=== PATIENT | female | born 1995 | race Caucasian/White ===

== ENCOUNTER 2019-03-06 12:35 | Emergency (ER) | payer OTHER, SELFPAY ==
--- NOTE | 2019-03-06 12:39 | ED.GENADULT ---
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 She had the last 1 and 1 week ago and then started having menstrual bleeding yesterday. She did not have to use any tampons on that day 03/05/2021 the fact that it was light at that time and she just use liners 1-2 that day. She awakened this morning with needing to use 5-6 tampons in 4-5 liners today. She does not have any abdominal pain or fever. There is been no vaginal discharge with any of this through the past month. She used to use Implanon as a form of contraception but that was removed in July 2018. She is occasionally sexually active and does not use contraception including no condoms. She felt nauseated this morning x1 and vomited x1. No longer feels nauseated. She has not had any hematuria, no dysuria, no pyuria. She indicates her last sexual intercourse was 2 days ago. She has otherwise felt well without any ear pain, no nasal drainage, no sore throat, no fever, no cough. 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 She has had no diarrhea. 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 He did have blood clots passed this morning when she awakened. He does not take any ibuprofen, Aleve, or aspirin products. She started her menarche between 15 to 16 years of age. He has never been . Related Data Home Medications Medication Instructions Recorded Confirmed No Home Medications 03/06/19 03/06/19 Allergies Allergy/AdvReac Type Severity Reaction Status Date / Time metoclopramide AdvReac Unknown Anxiety Verified 03/06/19 12:53 prochlorperazine AdvReac Unknown Anxiety Verified 03/06/19 12:53 Review of Systems Review of Systems: Narrative: CONSTITUTIONAL: Denies fever, chills, or sweats. Noncontributory except as pertains to the past medical history and the history of present illness. EYES: Denies visual changes, redness, or discharge. ENT: Denies rhinorrhea, congestion, sore throat, or otalgia. CARDIOVASCULAR: Denies chest pain, palpitations, or edema. RESPIRATORY: Denies cough or dyspnea. GASTROINTESTINAL: Denies abdominal pain, nausea, vomiting, or diarrhea. GENITOURINARY: Denies dysuria or hematuria. SKIN: Denies rash or itching. MUSCULOSKELETAL: Denies back pain, joint pain, or myalgia. NEUROLOGIC: Denies headache, numbness, or weakness. PSYCHIATRIC: Denies anxiety or depression. PMFSH Social History Social History Gender identity (if verbalized by the patient): Female Comments At time of signature, I have reviewed and agree with nursing past medical, surgical, social, and family history.Please see nursing chart for further information. There is no relevant family history pertinent to the presenting complaint. Exam Narrative: Exam Narrative: GENERAL: Well-appearing, well-nourished, and in no acute distress. HEAD: Normocephalic, atraumatic. EYES: PERRLA and EOMI. EARS: TM's clear bilaterally and the canals are clear. NOSE: Nares clear, no rhinorrhea or epistaxis. THROAT:Mucous membranes moist.Oropharynx normal without erythema exudates NECK: Supple. No adenopathy of the neck, supraclavicular, axillary, or inguinal areas. RESPIRATORY: No respiratory distress. Airway patent. Respirations non-labored. Clear to auscultation. There are no wheezes, no rales, no retractions, no use of accessory muscle respirations. Patient's not cyanotic and not dyspneic. HEART: Regular rate and rhythm. No murmur heard. Normal peripheral pulses. ABDOMEN: Soft, nontender, nondistended, normal active bowel sounds.No ma
[2019-03-06 12:47] VITALS: BP 117/71; PULSE 61; RESP 18; TEMP 36.7; O2SAT 100
== END 2019-03-06 13:34 | disposition home or self-care (01) ==
PROVIDERS: Emergency Provider Family Medicine
DX: N92.4 Excessive bleeding in the premenopausal period (principal)
CPT/HCPCS: 81025; 99214; G0463

== ENCOUNTER 2019-03-07 13:56 | Emergency (ER) | payer OTHER, SELFPAY ==
--- NOTE | ~2019-03-07 | XR_ITS ---
EXAMINATION: XR wrist LT min 3V DATE: 03/07/2019 14:38 INDICATION: Left wrist pain after fall TECHNIQUE: Posteroanterior, ulnar deviation, oblique, and lateral views of the left wrist were obtain ed. COMPARISON: None available FINDINGS: There is no fracture, dislocation, or subluxation. The bones, soft tissues, and joint space s are normal. IMPRESSION: 1. No acute osseous abnormality. Reviewed, dictated and finalized at location A. TRANSITION MGR
[2019-03-07 14:11] VITALS: BP 109/59; PULSE 66; RESP 16; TEMP 37.6; O2SAT 100
--- NOTE | 2019-03-07 14:20 | ED.UPPEXIN ---
HPI - Extremity Injury (Upper) General Chief Complaint: Extremity Injury, Upper Stated Complaint: Left wrist pain Time Seen by Provider: 03/07/19 14:21 Source: patient and RN notes reviewed Mode of arrival: ambulatory Limitations: no limitations History of Present Illness HPI narrative: This is a 23 years old female presented office for evaluation of left wrist pain this morning. Stated she accidentally slip and fall down onto the ground landed on her right side last night in the bathroom and somehow hurt her left wrist. She complain of pain everywhere however her left wrist is hurting the worse. States, she could not move it well or even use it to grasp a cup. She does not recall direct trauma or injury onto her wrist. Denies head injury or loss of consciousness.She is right-hand dominant. No treatment prior to arrival. Related Data Home Medications Medication Instructions Recorded Confirmed No Home Medications 03/06/19 03/06/19 Allergies Allergy/AdvReac Type Severity Reaction Status Date / Time metoclopramide AdvReac Unknown Anxiety Verified 03/06/19 12:53 prochlorperazine AdvReac Unknown Anxiety Verified 03/06/19 12:53 Review of Systems Review of Systems: Narrative: CONSTITUTIONAL: Denies feeling ill. CARDIOVASCULAR: Denies chest pain RESPIRATORY: Denies cough or difficulty breathing GASTROINTESTINAL: Denies abdominal pain, nausea, vomiting GENITOURINARY: Denies urinary symptoms; reports heaving bleeding. SKIN: Denies rash MUSCULOSKELETAL: Reports sore all over her body; and worse on her left wrist. NEUROLOGIC: Denies numbness, or lightheaded. PMFSH Social History Social History Gender identity (if verbalized by the patient): Female Comments At time of signature, I agree with nursing past medical, surgical, social and family history. There is no relevant family history pertinent to the presenting complaint. Exam Narrative: Exam Narrative: GENERAL: This is a well-nourished, well-developed patient, in no apparent distress. HEAD: Atraumatic. Normocephalic. No temporal or scalp tenderness. EYES: Sclera and conjunctivae normal ENT: External ears normal. Nose and lips normal. Airway patent. CARDIOVASCULAR: Regular rate and rhythm without murmurs, gallops, or rubs. RESPIRATORY: Clear to auscultation. Breath sounds equal bilaterally. No wheezes, rales, or rhonchi. GASTROINTESTINAL: Abdomen soft, non-tender, nondistended. Bowel sounds are active. No hepato-splenomegaly, or palpable masses. No guarding. SKIN: warm, intact with no suspicious lesions or rash, good texture and turgor. NEURO: awake, alert, and oriented to person, place and time. There were no obvious focal neurologic abnormalities. EXTREMITIES: the left wrist is with obvious asymmetry or deformity when compared to the R wrist. NO surface trauma, open wounds, swelling or obvious deformity. No overlying erythema or warmth. Limited ROM secondary to pain. Motor/sensory function of ulnar, radial, median nerves intact. Ulnar and radial pulses intact. Course Vital Signs Vital signs: Vital Signs Temperature 99.7 F H 03/07/19 14:11 Pulse Rate 66 03/07/19 14:11 Respiratory Rate 16 03/07/19 14:11 Blood Pressure 109/59 L 03/07/19 14:11 Pulse Oximetry 100 03/07/19 14:11 Temperature 99.7 F H 03/07/19 14:11 Pulse Rate 66 03/07/19 14:11 Respiratory Rate 16 03/07/19 14:11 Blood Pressure 109/59 L 03/07/19 14:11 Pulse Oximetry 100 03/07/19 14:11 MDM - Extremity Injury (Upper) MDM Narrative Medical decision making narrative: Discharge instructions reviewed with patient, as well as provided in writing per nursing staff. The instructions also include specific and strict return/GO TO THE ER as well as f/u information. All questions have been answered, and the patient deny any further questions with discharge and discharge plan. Differential Diagnosis Differential diagnosis:
== END 2019-03-07 15:09 | disposition home or self-care (01) ==
PROVIDERS: Emergency Provider Nurse Practitioner
DX: S63.502A Unspecified sprain of left wrist, initial encounter (principal); S66.912A Strain of unspecified muscle, fascia and tendon at wrist and hand level, left hand, initial encounter; W01.0XXA Fall on same level from slipping, tripping and stumbling without subsequent striking against object, initial encounter
CPT/HCPCS: 73110; 99213; G0463

== ENCOUNTER 2019-06-04 08:40 | Emergency (ER) | payer OTHER, SELFPAY ==
[2019-06-04 08:56] VITALS: BP 145/96; PULSE 87; RESP 16; TEMP 37.1; O2SAT 100
--- NOTE | 2019-06-04 08:59 | ED.GENADULT ---
HPI - General Adult General Chief complaint: Nausea/Vomiting/Diarrhea Stated complaint: abd pain/nausea/vomiting/diarrhea Time Seen by Provider: 06/04/19 09:01 Source: patient and RN notes reviewed Mode of arrival: ambulatory Limitations: no limitations History of Present Illness HPI narrative: 24-year-old female presents with complaints of nausea, vomiting, and decrease appetite for 1 day. Nausea and vomiting without abdominal pain. Aisha says on Sunday06/02/2019 she had [employer], [employer], and beer while smoking marijuana with some friends then awaken yesterday with nausea and vomiting. No treatment. No abdominal pain or cramping. She says she has had at least 15 episodes of emesis without blood or coffee ground contents. Exacerbating factors consist of eating and drinking. LBM Aisha says I couldn't tell you. Denies fever or chills. Denies headache, dizziness, back pain, dysuria, and blood in stool. Tolerating po intake well. Denies chest pain or dyspnea. Denies cough, rhinorrhea, congestion, and sore throat. Denies recent traveling. Denies concerns for COVID-19 or exposures been home since [id number] order except for essential household needs, working, and returned home. Some parts of this dictation were generated by voice recognition software and may contain typographical and/or grammatical inaccuracies. Related Data Allergies Allergy/AdvReac Type Severity Reaction Status Date / Time metoclopramide AdvReac Unknown Anxiety Verified 03/06/19 12:53 prochlorperazine AdvReac Unknown Anxiety Verified 03/06/19 12:53 Review of Systems Review of Systems: Narrative: CONSTITUTIONAL: Denies fever, chills, sweats. EYES: Denies visual changes, redness, discharge. ENT: Denies rhinorrhea, congestion, sore throat, otalgia. CARDIOVASCULAR: Denies chest pain, palpitations, edema. RESPIRATORY: Denies dyspnea, wheezing, cough. GASTROINTESTINAL: Denies abdominal pain, diarrhea. Complains of vomiting, nausea, and decrease appetite. GENITOURINARY: Denies dysuria, hematuria, abnormal discharge. SKIN: Denies rash or itching. MUSCULOSKELETAL: Denies acute back pain, joint pain, or myalgia. NEUROLOGIC: Denies numbness or focal weakness. PSYCHIATRIC: Denies anxiety or depression. All systems reviewed & are unremarkable except as noted in HPI and below. [facility] Past Medical History Medical History (Updated 06/04/19 @ 09:25 by JOSY Blul) Asthma Surgical History Surgical History (Updated 06/04/19 @ 10:09 by JOSY Bull) History of tympanostomy Family History Family History (Updated 06/04/19 @ 09:22 by JOSY Bull) Father Alive and well Mother Alive and well Social History Social History (Updated 06/04/19 @ 09:23 by JOSY Bull) Smoking packs per day: 0.5 Smoking cigarettes per day: 10.0 Years smoked: 10 Smoking pack-years: 5.00 Smoking status: Current every day smoker Tobacco type: cigarettes Second hand tobacco smoke exposure: Yes Alcohol intake: current Substance use: current Substance use type: marijuana Living arrangements: alone Gender identity (if verbalized by the patient): Female Comments At time of signature, I have reviewed and agree with nursing past medical, surgical, social, and family history. Please see nursing chart for further information. There is no relevant family history pertinent to the presenting complaint. Exam Narrative: Exam Narrative: GENERAL: This is a well-nourished, well-developed patient, in no apparent distress. Talks in full sentences without deficits and ambulates with steady gait without dyspnea. HEAD: normocephalic, atraumatic. EYES: PERRL. Sclera clear/white. Vision is grossly intact. THROAT: Mucous membranes moist, posterior pharynx clear. NECK: Neck supple, non-tender without lymphadenopathy, masses or thyromegaly. CARDIOVASCULAR: Regular rate and rhythm without murmurs, gallops, or rubs. RESPI
[2019-06-04] MEDS: ONDANSETRON INJ 4 MG/2 ML VIAL IM (09:23)
--- NOTE | 2019-06-04 09:35 | PC.NURSE ---
Malorie Mist and emesis bag given to pt.
--- NOTE | 2019-06-04 10:05 | PC.NURSE ---
0958- Pt has finished her first Malorie Mist, second one given. Minimal amount of emesis noted. Pt reported to [facility] that she was still not feeling well. 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
== END 2019-06-04 10:04 | disposition short-term general hospital (02) ==
PROVIDERS: Emergency Provider Nurse Practitioner Family
DX: K52.9 Noninfective gastroenteritis and colitis, unspecified (principal); F17.210 Nicotine dependence, cigarettes, uncomplicated; F12.90 Cannabis use, unspecified, uncomplicated
CPT/HCPCS: 96372; 99215; G0463; J2405

== ENCOUNTER 2019-06-04 10:24 | Emergency (ER) | payer OTHER, SELFPAY ==
--- NOTE | 2019-06-04 10:29 | ED.ABDPAIN ---
HPI - Abdominal Pain General Chief Complaint: Abdominal Pain Stated Complaint: N/V/ABD PAIN Source: RN notes reviewed History of Present Illness HPI narrative: Patient presents emergency department from urgent care for nausea vomiting. Patient states she is been having nausea and vomiting for the past 24 hours. Associate with abdominal pain in the upper abdomen described as burning in nature. Patient states that 2 days ago she had been drinking alcohol as well as smoking marijuana. States that the nausea vomiting began following this. Patient went to the urgent care this morning was given Zofran with minimal relief and transferred to the emergency department for further evaluation. Patient states she does have a history of cannabinoid hyperemesis syndrome that she states she has not had a problem with for the past year since she stopped using cannabinoid oil. Patient states she was smoking marijuana 2 nights ago. Related Data Allergies Allergy/AdvReac Type Severity Reaction Status Date / Time metoclopramide AdvReac Unknown Anxiety Verified 06/04/19 10:40 prochlorperazine AdvReac Unknown Anxiety Verified 06/04/19 10:40 Review of Systems Review of Systems: Narrative: Gen.: Denies fevers or chills ENT: Denies congestion Respiratory: Denies shortness of breath or cough CV: Denies chest pain or palpitations GI: See HPI denies burning, urgency, frequency or hematuria Musculoskeletal: Denies back pain or muscle pain Neuro: Denies numbness, tingling, weakness or focal weakness Skin: Denies rash Except as documented, all other systems reviewed and negative [facility] Past Medical History Medical History Asthma Surgical History Surgical History (Updated 06/04/19 @ 10:09 by JOSY Bull) History of tympanostomy Family History Family History (Updated 06/04/19 @ 09:22 by JOSY Bull) Father Alive and well Mother Alive and well Social History Social History Smoking packs per day: 0.5 Smoking cigarettes per day: 10.0 Years smoked: 10 Smoking pack-years: 5.00 Smoking status: Current every day smoker Tobacco type: cigarettes Second hand tobacco smoke exposure: Yes Alcohol intake: current Substance use: current Substance use type: marijuana Gender identity (if verbalized by the patient): Female Exam Narrative: Exam Narrative: APPEARANCE: No acute distress, nontoxic, resting in bed HEENT: Normocephalic, atraumatic, OMM RESPIRATORY: No respiratory distress, clear to auscultation bilaterally with no rhonchi wheezing or rales CARDIOVASCULAR: RRR s murmur ABDOMINAL: Soft, nondistended, tender palpation epigastric, right upper quadrant left upper quadrant, no tenderness right lower quadrant left lower quadrant, no rebound or guarding MUSCULOSKELETAl: Moves all extremities. No clubbing, cyanosis or edema. NEURO: Awake and alert. Following commands, speech normal, no focal deficits SKIN:: Warm, dry. Normal Color PSYCHIATRIC: Normal affect/mood Course Course Emergency Course: Patient states that they are feeling much better at this time. States abdominal pain has resolved. Repeat abdominal exam shows the patient's abdomen to be soft and nontender. Discussed with patient results of workup and diagnosis. Discussed need for follow-up with primary care physician, reasons to return to the emergency department in proper use of medication. Patient understands and agrees to current treatment plan Vital Signs Vital signs: Vital Signs Pulse Rate 105 H 06/04/19 10:33 Respiratory Rate 06/04/19 10:33 Blood Pressure 124/95 H 06/04/19 10:33 Pulse Oximetry 96 06/04/19 10:33 Pulse Rate 105 H 06/04/19 10:33 Respiratory Rate 06/04/19 10:33 Blood Pressure 124/95 H 06/04/19 10:33 Pulse Oximetry 96 06/04/19 10:33 MDM - Abdominal Pain MDM Narrative Medical d
[2019-06-04 10:33] VITALS: BP 124/95; PULSE 105; RESP 20; O2SAT 96
[2019-06-04] MEDS: SODIUM CHLORIDE 0.9% IV 1,000 ML 999 ML IV CONT (10:45)
[2019-06-04] MEDS: FAMOTIDINE 20 MG/2 ML VIAL IV PUSH (10:45)
[2019-06-04 10:51] LABS: Basophils Percent Auto 0.2 % (0.2-1.2); Hematocrit 45.7 % (37.0-47.0); Hemoglobin 14.9 g/dL (12.0-15.0); Immature Granulocyte Absolute 0.06 K/mm3 (0.00-0.031); Immature Granulocyte Percent A 0.3 % (0-0.5); Mean Corpuscular HGB Conc 32.6 g/dl (32-36); Mean Corpuscular Hemoglobin 29.6 pg (26-34); Mean Corpuscular Volume 90.9 fl (80-100); Mean Platelet Volume 11.9 fl (7.4-10.4); Monocytes Absolute Auto 1.3 K/mm3 (0.1-0.6); Monocytes Percent Auto 7.2 % (2.6-8.5); Neutrophils Absolute Auto 14.8 K/mm3 (1.3-6.7); Neutrophils Percent Auto 82.3 % (45.5-73.1); Platelet Count Result 318 k/mm3 (150-375); Red Blood Count 5.03 M/mm3 (4.2-5.4); Red Cell Distribution Width 14.5 % (11.5-14.5)
[2019-06-04 10:55] LABS: Add Urine Microscopic? YES; Appearance Urine Clear (Clear); Bacteria Urine Trace /hpf; Bilirubin Urine Negative (Negative); Blood Urine 1+ (Negative); Color Urine Yellow (Yellow); Glucose Urine UA Negative (Negative); Ketones Urine Negative (Negative); Leukocyte Esterase Ur Negative LEU/UL (Negative); Mucus Urine Rare /lpf; Nitrate Urine Negative (Negative); Protein Urine 1+ mg/dL (Negative); Specific Grav Ur 1.013 (1.001-1.035); Squamous Epithelial Cell Urine Many /hpf (Few); Urobilinogen Urine Negative mg/dL (<2.0)
[2019-06-04 11:02] LABS: Alanine Aminotransferase 15 U/L (4-35); Albumin Level 5.2 g/dL (3.5-5.1); Alkaline Phosphatase 90 U/L (38-126); Aspartate Amino Transferase 23 U/L (14-36); Bilirubin,Total 0.6 mg/dL (0.2-1.3); Blood Urea Nitrogen 10 mg/dL (7-17); Calcium 9.6 mg/dL (8.4-10.2); Carbon Dioxide 29 mmol/L (22-30); Chloride 99 mmol/L (98-107); Estimated CRCL calculation 116 ml/min; Estimated Glomerular Filt Rate > 60; Glucose 123 mg/dL (65-105); Lipase 101 U/L (23-300); Potassium 3.3 mmol/L (3.4-5.0); Sodium 139 mmol/L (137-145)
[2019-06-04 13:14] VITALS: BP 111/72; PULSE 69; RESP 16; O2SAT 99
[2019-06-04] MEDS: ONDANSETRON HCL ODT 4 MG TABLET (13:30)
== END 2019-06-04 13:37 | disposition home or self-care (01) ==
PROVIDERS: Emergency Provider Emergency Medicine
DX: R11.2 Nausea with vomiting, unspecified (principal); R10.10 Upper abdominal pain, unspecified; J45.909 Unspecified asthma, uncomplicated; F17.210 Nicotine dependence, cigarettes, uncomplicated
CPT/HCPCS: 36415; 80053; 81001; 81025; 83690; 85025; 96361; 96374; 96375; 99284; A9270; J2405; J7030

== ENCOUNTER 2019-11-11 12:47 | Emergency (ER) | payer OTHER, SELFPAY ==
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
[2019-11-11 13:03] VITALS: BP 118/55; PULSE 72; RESP 16; TEMP 37.3; O2SAT 100
== END 2019-11-11 13:27 | disposition home or self-care (01) ==
PROVIDERS: Emergency Provider Nurse Practitioner
DX: R10.30 Lower abdominal pain, unspecified (principal); F17.210 Nicotine dependence, cigarettes, uncomplicated
CPT/HCPCS: 81003; 81025; 99214; G0463

== ENCOUNTER 2020-02-10 13:34 | Emergency (ER) | payer OTHER, SELFPAY ==
[2020-02-10 13:41] VITALS: BP 132/94; PULSE 107; RESP 20; TEMP 36.7; O2SAT 96
[2020-02-10] MEDS: DEXTROSE 5%/LACTATED RINGERS 1,000 ML 100 ML IV CONT (14:11)
[2020-02-10] MEDS: ONDANSETRON INJ 4 MG/2 ML VIAL IV PUSH (14:11)
[2020-02-10 14:28] LABS: Basophils Percent Auto 0.3 % (0.2-1.2); Eosinophils Percent Auto 0.4 % (0-4.4); Hemoglobin 15.4 g/dL (12.0-15.0); Immature Granulocyte Absolute 0.04 K/mm3 (0.00-0.031); Immature Granulocyte Percent A 0.4 % (0-0.5); Lymphocytes Absolute Auto 2.01 K/mm3 (0.9-3.2); Lymphocytes Percent Auto 17.6 % (18.3-44.2); Mean Corpuscular HGB Conc 36.7 g/dl (32-36); Mean Corpuscular Hemoglobin 32.1 pg (26-34); Mean Corpuscular Volume 87.5 fl (80-100); Mean Platelet Volume 11.4 fl (7.4-10.4); Monocytes Absolute Auto 1.1 K/mm3 (0.1-0.6); Monocytes Percent Auto 9.6 % (2.6-8.5); Neutrophils Absolute Auto 8.2 K/mm3 (1.3-6.7); Neutrophils Percent Auto 71.7 % (45.5-73.1); Platelet Count Result 284 k/mm3 (150-375); Red Cell Distribution Width 11.3 % (11.5-14.5); White Blood Count 11.4 K/mm3 (4.5-10.0)
--- NOTE | 2020-02-10 14:28 | ED.NAVMDI ---
HPI - Nausea/Vomiting/Diarrhea General Chief complaint: Nausea/Vomiting/Diarrhea Stated complaint: 8 weeks , vomiting Time Seen by Provider: 02/10/20 13:37 Source: patient Mode of arrival: ambulatory Limitations: no limitations History of Present Illness HPI Narrative: This patient is a 24 year old female approximately 8 wks GA who presents for evaluation of nausea and vomiting. She states she has been having multiple episodes of nausea and emesis. She reports she thought she was feeling better but today she vomited immediately after attempting to eat yogurt. She denies fever, cough, abdominal pain or diarrhea. She denies vaginal bleeding or spotting. She states she is scheduled to see an OBGYN at [facility] but she has not had care yet. Her LMP was December 16, 2019 Related Data Allergies Allergy/AdvReac Type Severity Reaction Status Date / Time diphenhydramine Allergy Palpitation Verified 02/10/20 13:43 [From Benadryl] s metoclopramide AdvReac Unknown Anxiety Verified 02/10/20 13:43 prochlorperazine AdvReac Unknown Anxiety Verified 02/10/20 13:43 Review of Systems Review of Systems: All systems reviewed & are unremarkable except as noted in HPI and below Constitutional: Constitutional: Denies chills and Denies fever(s) ENT: Denies nasal congestion Cardiovascular: Cardiovascular: Denies chest pain Respiratory: Respiratory: Denies cough and Denies dyspnea Gastrointestinal: Gastrointestinal: Denies abdominal pain, Denies diarrhea, Reports nausea and Reports vomiting Genitourinary: Genitourinary: Denies hematuria, Denies nocturia and Denies pelvic pain PMFSH Past Medical History Medical History (Updated 02/10/20 @ 16:46 by Damari Lopez MD) Asthma Surgical History Surgical History (Updated 06/04/19 @ 10:09 by JOSY Bull) History of tympanostomy Family History Family History (Updated 06/04/19 @ 09:22 by JOSY Bull) Father Alive and well Mother Alive and well Social History Social History Smoking packs per day: 0.5 Smoking cigarettes per day: 10.0 Years smoked: 10 Smoking pack-years: 5.00 Smoking status: Current every day smoker Tobacco type: cigarettes Second hand tobacco smoke exposure: Yes Alcohol intake: current Substance use: current Substance use type: marijuana Gender identity (if verbalized by the patient): Female Exam Const: General: no acute distress and alert Orientation/consciousness: patient oriented x3 HENMT: Head: normocephalic and atraumatic Face and sinus: face symmetric Mouth: Yes Normal oral and palatal mucosa present, Yes lip normal, Yes oropharynx normal and Yes moist mucous membranes Eyes: EOM: EOMs intact bilaterally Chest: Chest palpation & inspection: normal inspection of the chest Resp: Effort & Inspection: normal respiratory effort Auscultation: clear to auscultation bilaterally Cardio: Rate: regular rate Rhythm: regular rhythm Heart sounds: no murmurs GI: GI Palp: Yes Soft to palpation, No Tenderness to palpation present (GI) and No Guarding due to palpation present (GI) Auscultation: normal bowel sounds Skin: General skin exam: normal color Rashes: no rashes Neuro: General: patient oriented x3 and moves all extremities Psych: Mental Status: mental status grossly normal Affect: normal affect Course Reevaluation(s) Reevaluation #1: I performed a bedside ultrasound which shows IUP with FHT 160 Date: 02/10/20 Time: 14:33 Reevaluation #2: Patient states she feels better. She has no vomiting and she was able to tolerate PO. Date: 02/10/20 Time: 16:42 Vital Signs Vital signs: Vital Signs Temperature 98.1 F 02/10/20 13:41 Pulse Rate 107 H 02/10/20 13:41 Respiratory Rate 20 02/10/20 13:41 Blood Pressure 132/94 H 02/10/20 13:41 Pulse Oximetry 96 02/10/20 13:41 Temperature 98.1 F
[2020-02-10 14:43] VITALS: BP 106/74; PULSE 104
[2020-02-10 14:44] VITALS: BP 121/61; BP 125/93; PULSE 111; PULSE 114
--- NOTE | 2020-02-10 14:45 | PC.NURSE ---
Patient unable to urinate at this time. Refuses straight cath.
[2020-02-10 14:49] LABS: Alanine Aminotransferase 46 U/L (4-35); Albumin Level 4.4 g/dL (3.5-5.1); Alkaline Phosphatase 56 U/L (38-126); Anion Gap 11 mmol/L (8-16); Aspartate Amino Transferase 66 U/L (14-36); Bilirubin,Total 0.8 mg/dL (0.2-1.3); Blood Urea Nitrogen 6 mg/dL (7-17); Calcium 9.8 mg/dL (8.4-10.2); Carbon Dioxide 24 mmol/L (22-30); Chloride 96 mmol/L (98-107); Estimated CRCL calculation 142 ml/min; Estimated Glomerular Filt Rate > 60; Glucose 176 mg/dL (65-105); Lipase 74 U/L (23-300); Potassium 2.8 mmol/L (3.4-5.0); Sodium 131 mmol/L (137-145)
[2020-02-10] MEDS: LACTATED RINGERS 1,000 ML 999 ML IV CONT (15:10)
[2020-02-10] MEDS: POTASSIUM CHLORIDE 20 MEQ TABLET 40 MEQ PO (15:10)
[2020-02-10 15:47] VITALS: BP 114/69; PULSE 81; RESP 16; O2SAT 96
[2020-02-10 15:48] LABS: Add Urine Microscopic? YES; Amorphous Sediment Urine Few; Appearance Urine Cloudy (Clear); Bacteria Urine Trace /hpf; Bilirubin Urine Negative (Negative); Blood Urine Negative (Negative); Color Urine Yellow (Yellow); Glucose Urine UA 3+ mg/dL (Negative); Ketones Urine Negative (Negative); Leukocyte Esterase Ur Negative LEU/UL (Negative); Mucus Urine Rare /lpf; Nitrate Urine Negative (Negative); Protein Urine Negative (Negative); Specific Grav Ur 1.008 (1.001-1.035); Squamous Epithelial Cell Urine Moderate /hpf (Few); Urobilinogen Urine Negative mg/dL (<2.0)
[2020-02-10 17:00] VITALS: BP 124/86; PULSE 89; RESP 18; O2SAT 98
== END 2020-02-10 17:01 | disposition home or self-care (01) ==
PROVIDERS: Emergency Provider General Practice
DX: O21.1 Hyperemesis gravidarum with metabolic disturbance (principal); O99.331 Smoking (tobacco) complicating pregnancy, first trimester; F17.210 Nicotine dependence, cigarettes, uncomplicated; Z3A.08 8 weeks gestation of pregnancy
CPT/HCPCS: 36415; 80053; 81001; 81025; 83690; 85025; 96361; 96374; 99284; A9270; J2405; J7120; J7121

== ENCOUNTER 2020-02-12 07:43 | Observation (INO) | payer OTHER, SELFPAY ==
[2020-02-12] VITALS (22 sets, daily range): BP systolic 101–130; BP diastolic 48–99; PULSE 69–100; RESP 17–22; TEMP 36.1–37; O2SAT 95–100; BMI 21.4
--- NOTE | ~2020-02-12 | US_ITS ---
EXAMINATION: US OB <= 14 weeks fetus DATE: 02/13/2020 07:55 INDICATION: Facial dating. Vomiting. TECHNIQUE: Real-time transabdominal obstetric ultrasound. FINDINGS: No prior studies for comparison. The uterus measures 7.8 x 6.2 x 6.2 cm. There is an intrauterine gestational sac, with pole clare ntified. The crown rump length measures 1.62 cm, which correlates with a estimated gestational age o f 8 weeks 0 days. heart tones are identified measuring 165 bpm. IMPRESSION: 1. SL IUP with an EGA of 8 weeks, 0 days (EDC by current ultrasound of 09/24/2020). Reviewed, dictated and finalized at location [facility] IMPRESSION: 1. SL IUP with an EGA of 8 weeks, 0 days (EDC by current ultrasound of ).
--- NOTE | ~2020-02-12 | US_ITS ---
US right upper quadrant INDICATION: Nausea and vomiting. Abdomen pain. PROCEDURE: Realtime right upper abdominal ultrasound. COMPARISON: No prior studies for comparison. FINDINGS: The pancreas is normal without focal mass or pancreatic ductal dilation. Liver echotexture is normal without focal mass or intrahepatic biliary dilatation. There is normal directional flow i n the portal vein. The gallbladder is normal without stones, gallbladder wall thickening or pericholecystic fluid. Comm on bile duct measures 5 mm. No sonographic Wilkins's sign. IMPRESSION: 1: Normal limited abdominal ultrasound. Reviewed, dictated and finalized at location [facility]. [facility]
--- NOTE | 2020-02-12 08:01 | ED.NAVMDI ---
HPI - Nausea/Vomiting/Diarrhea General Chief complaint: Nausea/Vomiting/Diarrhea Stated complaint: 9 weeks , vomiting Time Seen by Provider: 02/12/20 07:46 History of Present Illness HPI Narrative: female at approximately 9 weeks presents to the ED for nausea and vomiting. She has had nausea and vomiting for the past week. Not tolerating anything PO. She has been to hospitals multiple times with only very short term relief. She was here 3 days ago and found to be hypokalemic. She tolerated oral replacement and was discharged. She has not seen an OB yet. She has an appointment scheduled, but would prefer to see and OB here. She does have mild lower abdominal pain since this morning. Worse after vomiting. Related Data Allergies Allergy/AdvReac Type Severity Reaction Status Date / Time diphenhydramine Allergy Palpitation Verified 02/12/20 07:55 [From Benadryl] s metoclopramide AdvReac Unknown Anxiety Verified 02/12/20 07:55 prochlorperazine AdvReac Unknown Anxiety Verified 02/12/20 07:55 Review of Systems Review of Systems: All systems reviewed & are unremarkable except as noted in HPI and below Constitutional: Constitutional: Denies fever(s) ENT: Denies sore throat Cardiovascular: Cardiovascular: Denies chest pain Respiratory: Respiratory: Denies dyspnea Gastrointestinal: Gastrointestinal: Reports abdominal pain, Denies diarrhea, Reports nausea and Reports vomiting Genitourinary: Genitourinary: Denies hematuria and Denies dysuria Musculoskeletal: Musculoskeletal: Denies back pain Neurologic: Denies confusion, Reports dizziness and Denies weakness PMF Past Medical History Medical History (Updated 02/12/20 @ 11:21 by Daniel Garcia MD) Asthma Surgical History Surgical History History of tympanostomy Family History Family History Father Alive and well Mother Alive and well Social History Social History Smoking packs per day: 0.5 Smoking cigarettes per day: 10.0 Years smoked: 10 Smoking pack-years: 5.00 Smoking status: Current every day smoker Tobacco type: cigarettes Second hand tobacco smoke exposure: Yes Alcohol intake: current Substance use: current Substance use type: marijuana Gender identity (if verbalized by the patient): Female Exam Const: General: healthy appearing, no acute distress and alert Orientation/consciousness: patient oriented x3 HENMT: Mouth: Yes dry mucous membranes Neck: Neck: normal visual inspection and no lymphadenopathy Chest: Chest palpation & inspection: no tenderness Resp: Effort & Inspection: normal respiratory effort Auscultation: clear to auscultation bilaterally, no rales, no rhonchi and no wheezes Cardio: Jugular venous distension: no JVD Rate: regular rate Rhythm: regular rhythm Heart sounds: no murmurs GI: Inspection: non-distended GI Palp: Yes Soft to palpation and No Tenderness to palpation present (GI) Skin: General skin exam: normal color Neuro: General: patient oriented x3 and moves all extremities Speech: normal speech Extrem: General: no edema Psych: Appearance: well kempt Affect: normal affect Course Vital Signs Vital signs: Vital Signs Temperature 37.0 C 02/12/20 07:51 Pulse Rate 100 02/12/20 07:51 Respiratory Rate 17 02/12/20 07:51 Blood Pressure 125/85 02/12/20 07:51 Pulse Oximetry 100 02/12/20 07:51 Temperature 37.0 C 02/12/20 07:51 Pulse Rate 100 02/12/20 07:51 Respiratory Rate 17 02/12/20 07:51 Blood Pressure 130/86 02/12/20 10:45 Pulse Oximetry 100 02/12/20 10:45 MDM - Nausea/Vomiting/Diarrhea Differential Diagnosis Differential diagnosis: Likely gastroenteritis, dehydration and other (Hyperemesis) Medical Records Attestation: I reviewed the patient's medi
[2020-02-12 08:18] LABS: Basophils Percent Auto 0.2 % (0.2-1.2); Eosinophils Percent Auto 0.4 % (0-4.4); Hematocrit 41.1 % (37.0-47.0); Hemoglobin 14.9 g/dL (12.0-15.0); Immature Granulocyte Absolute 0.05 K/mm3 (0.00-0.031); Immature Granulocyte Percent A 0.5 % (0-0.5); Lymphocytes Absolute Auto 2.28 K/mm3 (0.9-3.2); Mean Corpuscular HGB Conc 36.3 g/dl (32-36); Mean Corpuscular Hemoglobin 32.2 pg (26-34); Mean Corpuscular Volume 88.8 fl (80-100); Mean Platelet Volume 11.5 fl (7.4-10.4); Monocytes Absolute Auto 0.9 K/mm3 (0.1-0.6); Neutrophils Absolute Auto 7.6 K/mm3 (1.3-6.7); Neutrophils Percent Auto 69.9 % (45.5-73.1); Platelet Count Result 299 k/mm3 (150-375); Red Blood Count 4.63 M/mm3 (4.2-5.4); Red Cell Distribution Width 11.7 % (11.5-14.5); White Blood Count 10.8 K/mm3 (4.5-10.0)
[2020-02-12] MEDS: DEXTROSE IV CONT (08:18)
[2020-02-12] MEDS: SOD CHL IV CONT (08:18)
[2020-02-12] MEDS: PYRIDOXINE HCL 100 MG/ML VIAL (*SPC) 50 MG IV PUSH (08:19)
[2020-02-12] MEDS: ONDANSETRON INJ 4 MG/2 ML VIAL IV PUSH ×3 (08:19→21:56)
[2020-02-12 08:32] LABS: Alanine Aminotransferase 75 U/L (4-35); Albumin Level 4.5 g/dL (3.5-5.1); Alkaline Phosphatase 56 U/L (38-126); Anion Gap 9 mmol/L (8-16); Aspartate Amino Transferase 38 U/L (14-36); Bilirubin,Total 0.7 mg/dL (0.2-1.3); Blood Urea Nitrogen 7 mg/dL (7-17); Calcium 9.7 mg/dL (8.4-10.2); Carbon Dioxide 27 mmol/L (22-30); Chloride 96 mmol/L (98-107); Estimated CRCL calculation 141 ml/min; Estimated Glomerular Filt Rate > 60; Glucose 108 mg/dL (65-105); Lipase 72 U/L (23-300); Sodium 132 mmol/L (137-145)
[2020-02-12 08:41] LABS: Add Urine Microscopic? YES; Appearance Urine Cloudy (Clear); Bacteria Urine Trace /hpf; Bilirubin Urine Negative (Negative); Blood Urine Negative (Negative); Color Urine Yellow (Yellow); Glucose Urine UA Negative (Negative); Ketones Urine 2+ mg/dL (Negative); Leukocyte Esterase Ur Negative LEU/UL (Negative); Mucus Urine Heavy /lpf; Nitrate Urine Negative (Negative); Protein Urine 1+ mg/dL (Negative); RBC Urine 0-2 /hpf (0-2); Squamous Epithelial Cell Urine Many /hpf (Few); Transitional Epi Cells Urine Rare /hpf (None Seen)
[2020-02-12] MEDS: POTASSIUM CHLORIDE 20 MEQ PACKET (FOR LIQUID) 40 MEQ PO (09:15)
[2020-02-12] MEDS: ONDANSETRON INJ 4 MG/2 ML VIAL (10:03)
--- NOTE | 2020-02-12 12:20 | ADMGEN ---
This patient, Aisha Cuevas, was admitted to [facility] MED TELE OVERFLOW. 40 MEQ K-RIDER INFUSING PER PUMP. DENIES NAUSEA OR VOMITING AT THIS TIME. DENIES ABDOMINAL PAIN. Patient/family oriented to hospital policies and general routines including ID bracelet, bed and alarms, visiting hours, pain management, procedures, bathroom and other care routines, personal items, smoking policy, room service/diet, and visiting hours. Information on how to activate the Rapid Response Team has been discussed. Patient/Family are encouraged to report perceived risks to care and to ask questions if they do not understand what they are told or what they should do.
[2020-02-12] MEDS: LACTATED RINGERS 1,000 ML 125 ML IV CONT (16:50)
--- NOTE | 2020-02-12 17:20 | PC.NURSE ---
DR. HOLLINGSWORTH HERE TO SEE PT. ORDERS RECEIVED.
--- NOTE | 2020-02-12 17:38 | PM.IMHP ---
H&P: HPI History of Present Illness Date/Time: 02/12/20 17:38 Chief Complaint: vomiting Narrative: Aisha Cuevas is a 24 year old female @ weeks by LMP presented to the ER with excessive vomiting and nausea. Patient reports has been to several ER for the nausea and has not seen an hand inspector yet. Patient denies bleeding. Patient reports low back pain and constipation. Review of Systems Review of Systems: All systems reviewed & are unremarkable except as noted in HPI and below PMFSH Past Medical History Medical History (Updated 02/12/20 @ 17:43 by Cornell Chung MD) Asthma Constipation Elevated liver enzymes Hypokalemia Surgical History Surgical History History of tympanostomy Family History Family History Father Alive and well Mother Alive and well Social History Social History Smoking packs per day: 0.5 Smoking cigarettes per day: 10.0 Years smoked: 10 Smoking pack-years: 5.00 Smoking status: Current some day smoker Tobacco type: cigarettes and e-cigarettes/vaping Second hand tobacco smoke exposure: Yes Additional smoking assessment comments: HAS BEEN SMOKING PUFF BAR SINCE NOVEMBER 2019 Alcohol intake: current Substance use: current Substance use type: marijuana Gender identity (if verbalized by the patient): Female Meds Home Medications and Allergies Home Medications Medication Instructions Recorded Confirmed Type ondansetron HCl [Zofran] 4 mg PO Q8H PRN 02/12/20 02/12/20 History Allergies Allergy/AdvReac Type Severity Reaction Status Date / Time diphenhydramine Allergy Palpitation Verified 02/12/20 17:06 [From Benadryl] s metoclopramide AdvReac Unknown Anxiety Verified 02/12/20 17:06 prochlorperazine AdvReac Unknown Anxiety Verified 02/12/20 17:06 Vital Signs Vital Signs - 24 hr 02/12/20 07:51 02/12/20 08:22 02/12/20 08:30 Temperature 37.0 C Pulse Rate 100 Respiratory Rate 17 Blood Pressure 125/85 114/73 113/61 Pulse Oximetry 100 97 99 02/12/20 08:45 02/12/20 09:15 02/12/20 09:16 Temperature Pulse Rate Respiratory Rate Blood Pressure 111/68 112/73 Pulse Oximetry 99 100 100 02/12/20 09:31 02/12/20 09:45 02/12/20 10:01 Temperature Pulse Rate Respiratory Rate Blood Pressure 111/80 123/76 129/94 H Pulse Oximetry 100 100 99 02/12/20 10:15 02/12/20 10:30 02/12/20 10:45 Temperature Pulse Rate Respiratory Rate Blood Pressure 124/99 H 127/85 130/86 Pulse Oximetry 100 100 100 02/12/20 11:06 02/12/20 11:15 02/12/20 11:31 Temperature Pulse Rate Respiratory Rate Blood Pressure 124/83 127/90 101/64 Pulse Oximetry 100 100 100 02/12/20 11:45 02/12/20 12:20 02/12/20 12:25 Temperature 36.8 C Pulse Rate 78 80 Respiratory Rate 22 H Blood Pressure 104/48 L 113/61 Pulse Oximetry 95 02/12/20 14:00 02/12/20 16:00 Temperature Pulse Rate 82 99 Respiratory Rate Blood Pressure Pulse Oximetry Exam Const: Orientation/consciousness: oriented to person, oriented to place and oriented to time GI: Inspection: normal to inspection GI Palp: Yes Soft to palpation Auscultation: Hyperactive bowel sounds present Back/Spine/Pelvis: Back: no CVA tenderness H&P: Results Labs Labs: Short CBC 02/12/20 Range/Units 08:14 WBC 10.8 H (4.5-10.0) K/mm3 Hgb 14.9 (12.0-15.0) g/dL Hct 41.1 (37.0-47.0) % Plt Count 299 (150-375) k/mm3 BMP 02/12/20 08:11 Sodium 132 L Potassium 3.0 L Chloride 96 L Carbon Dioxide 27 BUN 7 Creatinine 0.40 L Glucose 108 H Calcium 9.7 Liver Function 02/12/20 Range/Units 08:11 Total Bilirubin 0.7 (0.2-1.3) mg/dL AST 38 H (14-36) U/L ALT 75 H (4-35) U/L Alkaline Phosphatase 56 (38-126) U/L Albumin 4.5 (3.5-5
[2020-02-12] MEDS: PYRIDOXINE HCL 50 MG TABLET PO (17:43)
[2020-02-12] MEDS: FAMOTIDINE 20 MG/2 ML VIAL IV PUSH (21:03)
[2020-02-12] MEDS: DOCUSATE SODIUM 100 MG CAPSULE PO (21:03)
[2020-02-13] VITALS (10 sets, daily range): BP systolic 110–136; BP diastolic 68–92; PULSE 63–105; RESP 16–18; TEMP 36.7–37.7; O2SAT 96–100
[2020-02-13] MEDS: ONDANSETRON INJ 4 MG/2 ML VIAL IV PUSH ×3 (02:25→09:40)
[2020-02-13] MEDS: LACTATED RINGERS 1,000 ML 125 ML IV CONT ×3 (02:34→22:36)
[2020-02-13 06:20] LABS: Alanine Aminotransferase 45 U/L (4-35); Albumin Level 3.4 g/dL (3.5-5.1); Alkaline Phosphatase 43 U/L (38-126); Anion Gap 5 mmol/L (8-16); Aspartate Amino Transferase 20 U/L (14-36); Bilirubin,Total 0.5 mg/dL (0.2-1.3); Blood Urea Nitrogen 2 mg/dL (7-17); Calcium 8.6 mg/dL (8.4-10.2); Carbon Dioxide 27 mmol/L (22-30); Chloride 102 mmol/L (98-107); Estimated CRCL calculation 142 ml/min; Estimated Glomerular Filt Rate > 60; Glucose 85 mg/dL (65-105); Potassium 3.8 mmol/L (3.4-5.0); Sodium 134 mmol/L (137-145)
[2020-02-13] MEDS: PROMETHAZINE HCL 25 MG SUPP.RECT RECTAL ×2 (06:55→12:59)
--- NOTE | 2020-02-13 08:15 | PC.NURSE ---
HAS RETURNED FROM ABDOMINAL US VIA STRETCHER ORDERED. VOIDED AND BM PRIOR TO GOING FOR US ABDOMEN. NOW, SUDDEN VOMITING AND WRETCHING NOTED. EMESIS OF 200ML YELLOW BILE NOTED. DENIES PAIN OR SOB. STATES SHE IS UPSET AND WANTS TO GO HOME AND THIS HAS TRIGGERED DRY HEAVES, VOMITING. DENIES NAUSEA AT THIS TIME. TEARFUL AND CRYING. COMFORT AND REASSURANCE GIVEN. ON ELBOWS AND KNEES IN BED WHEN DRY HEAVING. DRY HEAVES STOP SPONTANEOUSLY. WILL CONTINUE TO MONITOR.
[2020-02-13] MEDS: PYRIDOXINE HCL 50 MG TABLET PO ×2 (09:40→17:41)
[2020-02-13] MEDS: DOCUSATE SODIUM 100 MG CAPSULE PO ×2 (09:40→22:36)
--- NOTE | 2020-02-13 09:40 | PC.NURSE ---
AGAIN SUDDEN OCCURANCE OF EMESIS AND DRY HEAVES ROUSING PT. FROM QUIET REST. EMOTIONAL AND TEARFUL WHEN EPISODES OCCUR. REFUSING SMALL AMOUNTS OF FOOD AT THIS TIME. ZOFRAN 4MG IVP GIVEN. IVF'S CONTINUE. WILL CONTINUE TO MONITOR.
[2020-02-13] MEDS: FAMOTIDINE 20 MG/2 ML VIAL IV PUSH (10:10)
--- NOTE | 2020-02-13 10:25 | PC.NURSE ---
UPDATE CALLED TO DR. HOLLINGSWORTH ABOUT PT'S RESULTS OF ABDOMINAL US AND US. ALSO NOTIFIED OF EPISODES OF EMESIS, DRY HEAVING AND INTERVENTIONS TAKEN. ORDERS RECEIVED.
--- NOTE | 2020-02-13 12:30 | PC.NURSE ---
DR. HOLLINGSWORTH HERE TO SEE PT. PT. JUST RESTING FROM EPISODE OF WRETCHING/DRY HEAVES AND VOMITING AT NOON. HAD EMESIS OF 100ML YELLOW BILE COLORED FLUID. PT. REFUSES TO EAT DESPITE BEING ENCOURAGED TO EAT SMALL AMOUNTS OF FOOD ABOUT EVERY 2 HOURS. WILL CONTINUE TO MONITOR.
--- NOTE | 2020-02-13 15:00 | PC.NURSE ---
HAS BEEN RESTING WITHOUT FURTHER EPISODES OF DRY HEAVES OR VOMITING LAST HOUR. SLEEPING WHEN NOT DISTURBED. WILL CONTINUE TO MONITOR.
--- NOTE | 2020-02-13 17:40 | PC.NURSE ---
HAS CONTINUED TO REST WITHOUT EMESIS/HEAVING. SLEEPING UNTIL DISTURBED AT THIS TIME. REPORTS NO NAUSEA OR PAIN AT THIS TIME. UP TO BATHROOM TO VOID. IVF'S CONTINUE. ENCOURAGED EATING.
[2020-02-13] MEDS: MECLIZINE HCL 25 MG TABLET PO (17:41)
[2020-02-13] MEDS: ONDANSETRON HCL ODT 4 MG TABLET PO ×2 (17:41→22:36)
--- NOTE | 2020-02-13 19:00 | PC.NURSE ---
CALL IN RECEIVED FROM DR. HOLLINGSWORTH. CONDITION UPDATE GIVEN. ORDER RECEIVED TO HOLD PHENERGAN SUPPOSITORY AND ALTERNATE USE OF SCHEDULED PO ZOFRAN AND MECLIZINE.
--- NOTE | 2020-02-13 19:15 | PM.GYNPNOP ---
RECONCILING CLERK - A/P Assessment and plan (1) Constipation: Code(s): K59.00 - Constipation, unspecified Status: Acute Assessment and Plan: improved with colace (2) Elevated liver enzymes: Code(s): R74.8 - Abnormal levels of other serum enzymes Status: Acute Assessment and Plan: improving (3) Hypokalemia: Code(s): E87.6 - Hypokalemia Status: Acute Assessment and Plan: resolved with kdur. (4) Hyperemesis gravidarum: Code(s): O21.0 - Mild hyperemesis gravidarum Status: Acute Assessment and Plan: switched to oral medications when able to tolerate diet will dc home with zofran and meclazine and vitamin b6. plan follow up in office for weight and urine check in 48 hours after discharge. If unable to continue regimen will consider zofran pump. Time Spent With Patient Time: Total time spent is greater than 50% in coordination of care (as documented) at patient's floor/unit and/or counseling patient: Time with patient: 15 - 25 minutes RECONCILING CLERK- PN:Rachel Post-Op Subjective Date/time seen: 02/13/20 19:15 Patient has not been able to eat today.. had some dry heaving otherwise no vomiting. Exam GI: Other: abdomen soft mild tenderness along diaphragm RECONCILING CLERK - PN: Obj Data Vital Signs Vital Signs: Vital Signs - 24 hr 02/12/20 20:00 02/12/20 22:00 02/13/20 00:00 Temperature 36.1 C L 36.8 C Pulse Rate 69 70 75 Respiratory Rate 18 18 Blood Pressure 106/56 L 107/58 L Pulse Oximetry 99 100 02/13/20 04:00 02/13/20 06:00 02/13/20 08:00 Temperature 36.7 C 37.2 C Pulse Rate 63 66 73 Respiratory Rate 18 16 Blood Pressure 110/68 132/90 Pulse Oximetry 100 100 Intake/Output Intake/Output: Intake & Output 02/10/20 02/11/20 02/12/20 02/13/20 23:59 23:59 23:59 23:59 Intake Total 3240 2200 Balance 3240 2200 Meds/Results Medications: Active Medications Generic Name Dose Route Start Last Admin Trade Name Freq PRN Reason Stop Dose Admin Docusate Sodium 100 mg 02/12/20 21:00 02/13/20 09:40 Docusate Sodium 100 Mg Capsule PO 100 mg Q12HR PRICILLA Administration Famotidine 20 mg 02/13/20 21:00 Famotidine 20 Mg Tablet PO Q12HR PRICILLA Lactated Ringer's 1,000 mls @ 125 mls/hr 02/12/20 10:20 02/13/20 12:48 Lr - Lactated Ringers Iv IV CONT 125 mls/hr .Q8H PRICILLA Administration Meclizine HCl 25 mg 02/13/20 13:00 02/13/20 17:41 Meclizine Hcl 25 Mg Tablet PO 25 mg Q6H PRICILLA Administration Ondansetron HCl 4 mg 02/13/20 16:00 02/13/20 17:41 Ondansetron Hcl Odt 4 Mg Tablet PO 4 mg Q6H PRICILLA Administration Polysaccharide Iron Complex 150 mg 02/14/20 08:00 Polysaccharide Iron Complex 150 Mg Capsule PO BIDWM PRICILLA Promethazine HCl 25 mg 02/13/20 13:00 02/13/20 12:59 Promethazine Hcl 25 Mg Supp.Rect RECTAL 25 mg Q6H PRICILLA Administration Pyridoxine HCl 50 mg 02/12/20 17:00 02/13/20 17:41 Pyridoxine Hcl 50 Mg Tablet PO 50 mg BID PRICILLA Administration Radiology Results: ITS Impressions Upper Quadrant Ultrasound 02/13/20 07:55 IMPRESSION: 1: Normal limited abdominal ultrasound. Ultrasound 02/13/20 07:57 IMPRESSION: 1. SL IUP with an EGA of 8 weeks, 0 days (EDC by current ultrasound of 09/24/2020). Labs CBC & Chem 7: 02/12/20 08:14 02/13/20 05:44 Labs: Laboratory Results - last 24 hr 02/13/20 05:44 Sodium 134 L Potassium 3.8 Chloride 102 Carbon Dioxide 27 Anion Gap 5 L BUN 2 L D Creatinine 0.40 L Estim Creat Clear Calc 142 Estimated GFR > 60 Glucose 85 Calcium 8.6 Total Bilirubin 0.5 AST 20 ALT 45 H Alkaline Phosphatase 43 Total Protein 6.0 L Albumin 3.4 L
[2020-02-14] VITALS: PULSE 84
[2020-02-14] MEDS: MECLIZINE HCL 25 MG TABLET PO ×2 (01:52→06:00)
[2020-02-14 04:00] VITALS: PULSE 89
[2020-02-14] MEDS: LACTATED RINGERS 1,000 ML 125 ML IV CONT (04:18)
[2020-02-14] MEDS: ONDANSETRON HCL ODT 4 MG TABLET PO ×2 (04:18→10:07)
[2020-02-14 05:07] VITALS: BP 116/76; PULSE 89; RESP 18; TEMP 37.4; O2SAT 98
[2020-02-14 08:00] VITALS: PULSE 95; RESP 17; O2SAT 98
[2020-02-14] MEDS: PYRIDOXINE HCL 50 MG TABLET PO (08:43)
[2020-02-14] MEDS: DOCUSATE SODIUM 100 MG CAPSULE PO (08:43)
[2020-02-14] MEDS: FAMOTIDINE 20 MG TABLET PO (08:43)
[2020-02-14 08:46] VITALS: PULSE 95; RESP 17; TEMP 37
== END 2020-02-14 11:48 | disposition home or self-care (01) ==
LOC: ANHED 11:21 → ANHCPC 11:47
PROVIDERS: Admitting Provider Obstetrics & Gynecology; Emergency Provider Emergency Medicine; Visit Provider Obstetrics & Gynecology
DX: O26.891 Other specified pregnancy related conditions, first trimester (principal); K59.00 Constipation, unspecified; O21.0 Mild hyperemesis gravidarum; O99.281 Endocrine, nutritional and metabolic diseases complicating pregnancy, first trimester; R74.8 Abnormal levels of other serum enzymes; E87.6 Hypokalemia; O99.331 Smoking (tobacco) complicating pregnancy, first trimester; F17.210 Nicotine dependence, cigarettes, uncomplicated; F12.90 Cannabis use, unspecified, uncomplicated; Z3A.09 9 weeks gestation of pregnancy
CPT/HCPCS: 36415; 76705; 76801; 80053; 81001; 83690; 85025; 96360; 96361; 96365; 96366; 96374; 96375; 96376; 99285; A9270; G0378; G0379; J0131; J2405; J3415; J3480; J7120

== ENCOUNTER 2020-02-16 10:01 | Outpatient (CLI) | payer OTHER, SELFPAY ==
[2020-02-16 11:00] LABS: Alanine Aminotransferase 30 U/L (4-35); Albumin Level 4.8 g/dL (3.5-5.1); Alkaline Phosphatase 58 U/L (38-126); Anion Gap 11 mmol/L (8-16); Aspartate Amino Transferase 27 U/L (14-36); Bilirubin,Total 0.9 mg/dL (0.2-1.3); Blood Urea Nitrogen 8 mg/dL (7-17); Calcium 10.1 mg/dL (8.4-10.2); Carbon Dioxide 26 mmol/L (22-30); Chloride 94 mmol/L (98-107); Estimated Glomerular Filt Rate > 60; Glucose 95 mg/dL (65-105); Potassium 3.6 mmol/L (3.4-5.0); Sodium 131 mmol/L (137-145)
== END 2020-02-16 10:02 | disposition home or self-care (01) ==
LOC: ANHLAB 10:06
PROVIDERS: Visit Provider Obstetrics & Gynecology
DX: O21.0 Mild hyperemesis gravidarum (principal)
CPT/HCPCS: 36415; 80053

== ENCOUNTER 2020-02-24 12:03 | Inpatient (IN) | payer OTHER, SELFPAY ==
[2020-02-24 12:20] VITALS: BP 124/77; PULSE 100
[2020-02-24 13:04] LABS: Hematocrit 36.9 % (37.0-47.0); Hemoglobin 13.3 g/dL (12.0-15.0); Mean Corpuscular Hemoglobin 32.1 pg (26-34); Mean Corpuscular Volume 89.1 fl (80-100); Mean Platelet Volume 11.9 fl (7.4-10.4); Platelet Count Result 256 k/mm3 (150-375); Red Blood Count 4.14 M/mm3 (4.2-5.4); Red Cell Distribution Width 11.5 % (11.5-14.5); White Blood Count 8.9 K/mm3 (4.5-10.0)
[2020-02-24] MEDS: DEXTROSE 5%/LACTATED RINGERS 1,000 ML 999 ML IV CONT (13:12)
[2020-02-24 13:18] LABS: Alanine Aminotransferase 60 U/L (4-35); Albumin Level 4.2 g/dL (3.5-5.1); Alkaline Phosphatase 59 U/L (38-126); Anion Gap 9 mmol/L (8-16); Aspartate Amino Transferase 24 U/L (14-36); Bilirubin,Total 0.6 mg/dL (0.2-1.3); Blood Urea Nitrogen 4 mg/dL (7-17); Calcium 9.2 mg/dL (8.4-10.2); Carbon Dioxide 30 mmol/L (22-30); Chloride 91 mmol/L (98-107); Estimated Glomerular Filt Rate > 60; Glucose 100 mg/dL (65-105); Potassium 2.6 mmol/L (3.4-5.0); Sodium 130 mmol/L (137-145)
[2020-02-24 13:53] LABS: Thyroid Stimulating Hormone < 0.015 uIU/mL (0.465-4.680)
[2020-02-24] MEDS: THIAMINE HCL INJ 100 MG, FOLIC ACID INJ 1 MG, MULTIVITAMINS-12 INJ VIAL 1 5 ML, MULTIVI... 250 MG IV CONT (14:46)
[2020-02-24 15:07] VITALS: BMI 19.7
[2020-02-24 15:20] LABS: Add Urine Microscopic? YES; Appearance Urine Clear (Clear); Bacteria Urine Trace /hpf; Bilirubin Urine Negative (Negative); Blood Urine Negative (Negative); Color Urine Straw (Yellow); Glucose Urine UA 3+ mg/dL (Negative); Ketones Urine Negative (Negative); Leukocyte Esterase Ur Negative LEU/UL (NEGATIVE); Nitrate Urine Negative (Negative); Protein Urine Negative (Negative); RBC Urine 0-2 /hpf (0-2); Specific Grav Ur 1.011 (1.001-1.035); Squamous Epithelial Cell Urine Moderate /hpf (Few); Urobilinogen Urine Negative mg/dL (<2.0); WBC Urine 0-3 /hpf (0-3)
--- NOTE | 2020-02-24 15:50 | OBADM ---
This patient, Aisha Cuevas, admitted to the OB room OB Post 115 for observation for hyperemesis Patient/family oriented to hospital policies and general routines including ID bracelet, bed and alarms, visiting hours, pain management, procedures, bathroom and other care routines, personal items, smoking policy, room service/diet, and visiting hours. Patient/Family are encouraged to report perceived risks to care and to ask questions if they do not understand what they are told or what they should do.
[2020-02-24 17:45] VITALS: BP 114/52; PULSE 97
[2020-02-24 18:53] VITALS: BP 106/49; PULSE 90
[2020-02-24 19:00] VITALS: TEMP 37
[2020-02-24] MEDS: DEXTROSE 5%/LACTATED RINGERS 1,000 ML 125 ML IV CONT (20:48)
[2020-02-24] MEDS: AMINO ACIDS 4.25%/D5W/LYTES/CA 2,000 ML 80 ML IV CONT (21:02)
[2020-02-24 22:30] VITALS: TEMP 36.5
[2020-02-24 23:10] VITALS: BP 110/61; PULSE 86
[2020-02-25] VITALS (8 sets, daily range): BP systolic 104–131; BP diastolic 54–78; PULSE 77–95; RESP 16; TEMP 36.6–37.3; BMI 19.7
[2020-02-25] MEDS: DEXTROSE 5%/LACTATED RINGERS 1,000 ML 125 ML IV CONT ×3 (02:44→19:06)
--- NOTE | 2020-02-25 02:50 | PC.NURSE ---
Pt has been sleeping. Pt states she has been feeling much better and has not had vomiting this shift. Had ice chips, popsicle and apple juice without vomiting.
[2020-02-25 05:29] LABS: Alanine Aminotransferase 46 U/L (4-35); Alkaline Phosphatase 40 U/L (38-126); Anion Gap 2 mmol/L (8-16); Aspartate Amino Transferase 19 U/L (14-36); Bilirubin,Total 0.5 mg/dL (0.2-1.3); Carbon Dioxide 27 mmol/L (22-30); Chloride 101 mmol/L (98-107); Estimated CRCL calculation 138 ml/min; Estimated Glomerular Filt Rate > 60; Glucose 92 mg/dL (65-105); Sodium 130 mmol/L (137-145)
[2020-02-25 05:53] LABS: Blood Urea Nitrogen < 2 mg/dL (7-17)
--- NOTE | 2020-02-25 08:40 | PC.NURSE ---
Pt drank 240 ml of apple juice all at once and then requested a 3rd. Pt encouraged to drink by sips and pausing for several minutes before her next sip. Pt states, Well I was thirsty. Am I just suppose to lay here thirsty waiting to drink. Explained to pt that she would be more likely to keep her fluids and food down if she sipped an nibbled at things.
--- NOTE | 2020-02-25 10:55 | PC.NURSE ---
Called into pt room. Pt upset because her boyfriend stated he had tried to come into the OB unit about 2 hrs ago and security wouldn't let him in. Informed pt I would make sure security knew she could have her 1 visitor. Pt states he already picked up his kids and can't come back now. Pt states she is just tired of this and wants to go home. Discussed with pt that she just threw up everything she drank this morning and hasn't been able to keep anything down. Pt states, Well, I am allowed to have morning sickness once in the morning. Dr. Patel paged.
--- NOTE | 2020-02-25 10:59 | PC.NURSE ---
Dr. Patel returned page and informed of events of the morning. Dr. Ptael states Dr. Chung is coming to round on pt.
--- NOTE | 2020-02-25 11:57 | PM.IMHP ---
H&P: HPI History of Present Illness Date/Time: 02/25/20 11:57 Chief Complaint: nausea and fatigue Narrative: Chief Complaint: weight loss, nausea, weakness Narrative: Aisha Cuevas is a 24 year old female @9 weeks 5 days by LMPc/w first trimester ultrasound presented to the ER with excessive vomiting and nausea. Patient reports has been to several ERs for the nausea. Patient seen in the office and noted 10% weight loss since last visit. Patient reports was doing okay with zofran then was not able to take it any more felt it was make her nauseous to take orally. Patient denies bleeding. Patient reports low back pain and constipation. [facility] Past Medical History Medical History (Updated 02/12/20 @ 17:43 by Cornell Chung MD) Asthma Constipation Elevated liver enzymes Hypokalemia Surgical History Surgical History History of tympanostomy Family History Family History Father Alive and well Mother Alive and well Social History Social History Smoking packs per day: 0.5 Smoking cigarettes per day: 10.0 Years smoked: 10 Smoking pack-years: 5.00 Smoking status: Current some day smoker Tobacco type: cigarettes and e-cigarettes/vaping Second hand tobacco smoke exposure: Yes Additional smoking assessment comments: HAS BEEN SMOKING PUFF BAR SINCE NOVEMBER 2019 Alcohol intake: former Substance use: current Substance use type: marijuana Other substance usage details: OCCASIONAL MARIJUANA Gender identity (if verbalized by the patient): Female Spiritual care concerns: No Meds Home Medications and Allergies Home Medications Medication Instructions Recorded Confirmed Type docusate sodium 100 mg PO Q12HR #60 cap 02/14/20 Rx famotidine 20 mg PO Q12HR #60 tablet 02/14/20 Rx ondansetron 4 mg PO Q6H #30 tablet 02/26/20 Rx pyridoxine (vitamin B6) [Vitamin 50 mg PO BID #60 tablet 02/26/20 Rx B-6] Allergies Allergy/AdvReac Type Severity Reaction Status Date / Time diphenhydramine Allergy Palpitation Verified 02/12/20 17:06 [From Benadvinl] s metoclopramide AdvReac Unknown Anxiety Verified 02/12/20 17:06 prochlorperazine AdvReac Unknown Anxiety Verified 02/12/20 17:06 Vital Signs Vital Signs - 24 hr 02/24/20 12:20 02/24/20 17:45 02/24/20 18:53 Temperature Pulse Rate 100 97 90 Respiratory Rate Blood Pressure 124/77 114/52 L 106/49 L 02/24/20 19:00 02/24/20 22:30 02/24/20 23:10 Temperature 37.0 C 36.5 C Pulse Rate 86 Respiratory Rate Blood Pressure 110/61 02/25/20 02:43 02/25/20 02:52 02/25/20 08:41 Temperature 36.6 C Pulse Rate 77 95 Respiratory Rate Blood Pressure 112/67 104/54 L 02/25/20 08:42 Temperature 37.2 C Pulse Rate Respiratory Rate 16 Blood Pressure 104/54 L Exam GI: Other: soft nontender nondistended. H&P: Results Labs Labs: Short CBC 02/24/20 Range/Units 12:54 WBC 8.9 (4.5-10.0) K/mm3 Hgb 13.3 (12.0-15.0) g/dL Hct 36.9 L (37.0-47.0) % Plt Count 256 (150-375) k/mm3 BMP 02/24/20 02/25/20 12:53 05:08 Sodium 130 L 130 L Potassium 2.6 L* 4.0 Chloride 91 L 101 Carbon Dioxide 30 27 BUN 4 L < 2 L Creatinine 0.40 L 0.40 L Glucose 100 92 Calcium 9.2 8.0 L Liver Function 02/24/20 02/25/20 Range/Units 12:53 05:08 Total Bilirubin 0.6 0.5 (0.2-1.3) mg/dL AST 24 19 (14-36) U/L ALT 60 H 46 H (4-35) U/L Alkaline Phosphatase 59 40 (38-126) U/L Albumin 4.2 3.0 L (3.5-5.1) g/dL Urine 02/24/20 Range/Units 15:09 Urine Color Straw (Yellow) Urine Appearance Clear (Clear) Urine pH 8.0 (5.0-9.0) Ur Specific [place] 1.011 (1.001-1.035) Urine Protein Negative (Negative) mg/dL Urine Glucose (UA) 3+ H (Negative) mg/dL Assessment and Plan Asse
--- NOTE | 2020-02-25 15:07 | PC.NURSE ---
Pt drank another 4oz of apple juice with some water instead of sipping and was followed by emesis a few minutes later. Again, reinforced that pt needs to sip slowly and nibble on food rather than drink. Pt states, It was only 4 oz! Explained to pt that hyperemesis is different than anything she has experienced before and that if she slows down and sips slowly with pauses and nibbles on food, she will be much more likely to keep it down.
--- NOTE | 2020-02-25 15:36 | PC.NURSE ---
Dr. Chung returned page and informed that Luli from [facility] has been here to instruct pt on how to insert the SQ needle and use the pump for the Zofran pump. It will be 24-72 hrs for Kenneth to preapprove the Zofran pump. Informed that pt wants to go home, but that pt again drank 120 ml of apple juice by drinking normally and had emesis of the juice a little later. states she won't discharge pt until she can keep sips and nibbles down.
--- NOTE | 2020-02-25 15:45 | PC.NURSE ---
Pt informed Dr. Chung doesn't want to discharge her until she can do sips and nibbles and keep it down. Pt requesting to shower.
--- NOTE | 2020-02-25 15:53 | PC.NURSE ---
Pt given menu to order food. IV sites covered in plastic bags and up to shower.
--- NOTE | 2020-02-25 16:55 | PC.NURSE ---
Pt is done in the shower and sitting up in bed eating her dinner. Pt ordered chicken breast, green beans, mashed potatoes, apple, and cookies. Pt had eaten 90% of her chicken, 50% of green beans, and a couple of bites of mashed potatoes prior to my entering room. Pt encourage again to just nibble. Informed it is better to eat a smaller amount and keep it down vs eating more and then not being able to keep it down. Informed pt I would be glad to heat the rest of it up for her again in a little bit for her to eat more then. Pt complained her apple was soft and bruised. Called dietary for a replacement apple. Pt apologized for being mean earlier. Reassured pt that I knew she wasn't feeling good and I just wanted to help her get better.
--- NOTE | 2020-02-25 17:23 | PC.NURSE ---
Pt is sound asleep with the lights out.
--- NOTE | 2020-02-25 18:20 | PC.NURSE ---
Pt called out for help to the bathroom. Walked in and pt was standing wanting her IV disconnected. Unplugged IV since it was faster. Pt cussed at me multiple times. Pt was IVs out and wants to leave AMA. Tried to calm pt and explained she didn't need to cuss at me and that I can call the doctor and ask if we can get one of the IVs discontinued. Pt states she will stay if she can have one of the IVs disconnected. Explained to pt I understand her frustration but we would like to take care of her and make her feel better so she doesn't end up right back at the hospital.
[2020-02-25] MEDS: ONDANSETRON INJ 4 MG/2 ML VIAL IV PUSH (18:56)
[2020-02-25] MEDS: PYRIDOXINE HCL 50 MG TABLET PO (19:02)
[2020-02-26] MEDS: ONDANSETRON INJ 4 MG/2 ML VIAL IV PUSH ×2 (01:22→07:08)
[2020-02-26] MEDS: DEXTROSE 5%/LACTATED RINGERS 1,000 ML 125 ML IV CONT (02:58)
[2020-02-26] MEDS: PYRIDOXINE HCL 50 MG TABLET PO (07:10)
--- NOTE | 2020-02-26 07:11 | PC.NURSE ---
Dr. Patel at bedside discussing plan of care with patient.
--- NOTE | 2020-02-26 07:22 | P.PNOB_ITS ---
OB - PN: Subj Subjective Date/time seen: 02/26/20 07:22 feels much better tolerated small meal last pm and snacks request to go home OB - PN: Obj Data Labs CBC & Chem 7: 02/24/20 12:54 02/25/20 05:08 OB - PN A/P Assessment and Plan (1) Hyperemesis gravidarum: Code(s): O21.0 - Mild hyperemesis gravidarum Status: Acute Assessment and Plan: DC home with Zofran 4mg q 6 hrs until Zofran pump placed on Sunday. Time Spent With Patient Time: Total time spent is greater than 50% in coordination of care (as documente d) at patient's floor/unit and/or counseling patient:
--- NOTE | 2020-02-26 07:24 | PM.DS ---
DS: Admitting Diagnosis Admitting Diagnosis Admitting Diagnosis: hyperemesis gravidarium hypokalemia dehydration DS: Discharge Diagnosis Discharge Diagnosis (1) Hypokalemia: Code(s): E87.6 - Hypokalemia Status: Acute (2) Hyperemesis gravidarum: Code(s): O21.0 - Mild hyperemesis gravidarum Status: Acute DS: Summary Hospital Course Hospital Course: see above Time Spent with Patient Time attestation: Total time spent providing and/or coordinating discharge services:Patient with severe dehydration and weight loss. Given IV fluids, banana bag, and then procalamine. K+ riders until K+ nl. LFTs initially elevated and came down after fluids. GI rest x 24 hours. Yesterday able to eat small dinner and several snacks. Zofran pump teaching done and will be started Sunday. Will do po zofran until set on schedule. Feels much better and ready for discharge. Discharge Plan Discharge Attending physician on discharge: Divya Patel Discharging Clinician: Divya Patel Anticipated Discharge Date/Time: 02/26/20 07:27 Patient Disposition: Home, Self-Care Activity: as tolerated Diet: bland Patient Instructions: Antibiotic Form Stand Alone Forms: General Discharge Information Follow-up/Referrals: Divya Patel MD [Physician] - (Sunday or Sunday for weight check) Discharge Medications: Continued docusate sodium 100 mg Capsule 100 mg PO Q12HR Qty: 60 RF: 0 famotidine 20 mg Tablet 20 mg PO Q12HR Qty: 60 RF: 0 ondansetron 4 mg Tablet,Disintegrating 4 mg PO Q6H Qty: 30 RF: 0 Discontinued meclizine 25 mg Tablet 25 mg PO Q6H Qty: 60 RF: 0 Date of admission: 02/24/20 12:03 Admitting Provider: Divya Patel Attending physician on admission: Divya Patel Condition: Stable
== END 2020-02-26 07:55 | disposition home or self-care (01) | DRG 566 ==
PROVIDERS: Admitting Provider Obstetrics & Gynecology Gynecology; Visit Provider Obstetrics & Gynecology Gynecology
DX: O21.0 Mild hyperemesis gravidarum (principal); O99.281 Endocrine, nutritional and metabolic diseases complicating pregnancy, first trimester; E87.6 Hypokalemia; Z3A.09 9 weeks gestation of pregnancy; O99.511 Diseases of the respiratory system complicating pregnancy, first trimester; J45.909 Unspecified asthma, uncomplicated; O99.331 Smoking (tobacco) complicating pregnancy, first trimester; F17.290 Nicotine dependence, other tobacco product, uncomplicated; R74.8 Abnormal levels of other serum enzymes; O99.611 Diseases of the digestive system complicating pregnancy, first trimester; K59.00 Constipation, unspecified
CPT/HCPCS: 36415; 80053; 81001; 84443; 85027; A9270; J2405; J3411; J3475; J3480; J7121

== ENCOUNTER 2020-03-10 16:07 | Emergency (ER) | payer SELFPAY ==
[2020-03-22 14:09] LABS: Add Urine Microscopic? NO
== END 2020-03-10 16:15 | disposition left against medical advice (07) ==
LOC: ANHED 03-11 06:58
PROVIDERS: Emergency Provider Emergency Medicine
DX: Z53.21 Procedure and treatment not carried out due to patient leaving prior to being seen by health care provider (principal)
CPT/HCPCS: 36415; 80053; 81001; 81003; 83690; 85025; 99199

== ENCOUNTER 2020-03-10 17:16 | Emergency (ER) | payer OTHER, SELFPAY ==
[2020-03-10 17:16] VITALS: BP 133/90; PULSE 95; RESP 16; TEMP 36.2; O2SAT 100
--- NOTE | 2020-03-10 17:35 | PC.NURSE ---
Pt. unhappy about long wait time. Pt. left without being seen. Pt. placed emesis bag full bile on the intake desk prior to leaving.
== END 2020-03-10 17:35 | disposition left against medical advice (07) ==
DX: Z53.21 Procedure and treatment not carried out due to patient leaving prior to being seen by health care provider (principal)
CPT/HCPCS: 99199

== ENCOUNTER 2020-03-12 09:22 | Observation (INO) | payer OTHER, SELFPAY ==
[2020-03-12 09:25] VITALS: BP 127/88; PULSE 86; RESP 20; O2SAT 98
--- NOTE | 2020-03-12 09:31 | ED.NAVMDI ---
HPI - Nausea/Vomiting/Diarrhea General Chief complaint: Nausea/Vomiting/Diarrhea Stated complaint: N/V 12WKS PREG Time Seen by Provider: 03/12/20 09:31 History of Present Illness HPI Narrative: 24 yo female w/ h/o hyperemesis presents to the ED for nausea and vomiting. She has had issues with nausea and vomiting since the beginning of February. SHe required hospitalization once last month. She had significant weight loss at that time. No fever, chills, abdominal pain. Related Data Allergies Allergy/AdvReac Type Severity Reaction Status Date / Time diphenhydramine Allergy Palpitation Verified 03/12/20 09:33 [From Benadryl] s metoclopramide AdvReac Unknown Anxiety Verified 03/12/20 09:33 prochlorperazine AdvReac Unknown Anxiety Verified 03/12/20 09:33 Review of Systems Review of Systems: All systems reviewed & are unremarkable except as noted in HPI and below Constitutional: Constitutional: Denies fever(s) Cardiovascular: Cardiovascular: Denies chest pain Respiratory: Respiratory: Denies dyspnea Gastrointestinal: Gastrointestinal: Denies abdominal pain, Reports nausea and Reports vomiting Genitourinary: Genitourinary: Denies hematuria and Denies dysuria Neurologic: Reports dizziness and Reports weakness PMFSH Past Medical History Medical History Asthma Constipation Elevated liver enzymes Hypokalemia Surgical History Surgical History History of tympanostomy Family History Family History Father Alive and well Mother Alive and well Social History Social History Smoking packs per day: 0.5 Smoking cigarettes per day: 10.0 Years smoked: 10 Smoking pack-years: 5.00 Smoking status: Current some day smoker Tobacco type: cigarettes and e-cigarettes/vaping Second hand tobacco smoke exposure: Yes Additional smoking assessment comments: HAS BEEN SMOKING PUFF BAR SINCE NOVEMBER 2019 Alcohol intake: former Substance use: current Substance use type: marijuana Other substance usage details: OCCASIONAL MARIJUANA Gender identity (if verbalized by the patient): Female Spiritual care concerns: No Exam Const: General: no acute distress, alert and ill appearing Orientation/consciousness: patient oriented x3 HENMT: Head: normal to inspection Resp: Effort & Inspection: normal respiratory effort Auscultation: clear to auscultation bilaterally Cardio: Rate: regular rate Rhythm: regular rhythm GI: GI Palp: Yes Soft to palpation and No Tenderness to palpation present (GI) Skin: General skin exam: normal color Neuro: General: patient oriented x3, moves all extremities, no focal motor deficits and CN's II-XI intact bilaterally Speech: normal speech Extrem: General: normal to inspection Course Vital Signs Vital signs: Vital Signs Pulse Rate 86 03/12/20 09:25 Respiratory Rate 20 03/12/20 09:25 Blood Pressure 127/88 03/12/20 09:25 Pulse Oximetry 98 03/12/20 09:25 Pulse Rate 84 03/12/20 14:46 Respiratory Rate 18 03/12/20 14:46 Blood Pressure 106/68 03/12/20 14:46 Pulse Oximetry 100 03/12/20 14:46 MDM - Nausea/Vomiting/Diarrhea Differential Diagnosis Differential diagnosis: Likely dehydration and other (hyperemesis) Lab Data Attestation: I reviewed the patient's lab results. Result diagrams: 03/12/20 09:35 03/12/20 09:35 Labs: Lab Results 03/12/20 03/12/20 03/12/20 Range/Units 09:35 09:35 11:08 WBC 9.5 (4.5-10.0) K/mm3 RBC 4.25 (4.2-5.4) M/mm3 Hgb 13.4 (12.0-15.0) g/dL Hct 38.3 (37.0-47.0) % MCV 90.1 (80-100) fl MCH 31.5 (26-34) pg MCHC 35.0 (32-36) g/dl RDW 12.1 (11.5-14.5) % Plt Count 316 (150-375) k/mm3 MPV 10.3 (7.4-10.4) fl Imm
[2020-03-12] MEDS: ONDANSETRON INJ 4 MG/2 ML VIAL IV PUSH ×4 (09:37→23:38)
[2020-03-12] MEDS: DEXTROSE 5%/0.45% SOD CHL 1,000 ML 1000 ML IV CONT ×2 (09:37→11:29)
[2020-03-12 09:41] LABS: Basophils Percent Auto 0.1 % (0.2-1.2); Eosinophils Percent Auto 0.1 % (0-4.4); Hematocrit 38.3 % (37.0-47.0); Hemoglobin 13.4 g/dL (12.0-15.0); Immature Granulocyte Absolute 0.03 K/mm3 (0.00-0.031); Immature Granulocyte Percent A 0.3 % (0-0.5); Lymphocytes Absolute Auto 1.39 K/mm3 (0.9-3.2); Lymphocytes Percent Auto 14.6 % (18.3-44.2); Mean Corpuscular Hemoglobin 31.5 pg (26-34); Mean Corpuscular Volume 90.1 fl (80-100); Mean Platelet Volume 10.3 fl (7.4-10.4); Monocytes Absolute Auto 0.5 K/mm3 (0.1-0.6); Monocytes Percent Auto 4.8 % (2.6-8.5); Neutrophils Absolute Auto 7.6 K/mm3 (1.3-6.7); Neutrophils Percent Auto 80.1 % (45.5-73.1); Platelet Count Result 316 k/mm3 (150-375); Red Blood Count 4.25 M/mm3 (4.2-5.4); Red Cell Distribution Width 12.1 % (11.5-14.5); White Blood Count 9.5 K/mm3 (4.5-10.0)
[2020-03-12 10:03] LABS: Albumin Level 4.6 g/dL (3.5-5.1); Alkaline Phosphatase 56 U/L (38-126); Anion Gap 8 mmol/L (8-16); Aspartate Amino Transferase 25 U/L (14-36); Bilirubin,Total 0.5 mg/dL (0.2-1.3); Blood Urea Nitrogen 9 mg/dL (7-17); Calcium 9.6 mg/dL (8.4-10.2); Carbon Dioxide 27 mmol/L (22-30); Chloride 100 mmol/L (98-107); Estimated CRCL calculation 116 ml/min; Estimated Glomerular Filt Rate > 60; Glucose 110 mg/dL (65-105); Lipase 35 U/L (23-300); Potassium 2.9 mmol/L (3.4-5.0); Sodium 135 mmol/L (137-145)
[2020-03-12 10:47] VITALS: BP 102/54; PULSE 94; RESP 18; O2SAT 20
[2020-03-12 10:47] LABS: Alanine Aminotransferase 21 U/L (4-35)
--- NOTE | 2020-03-12 10:48 | PC.NURSE ---
pt requests that she go to bathroom for ua at 1100. states nausea subsided and she wants to rest a few more minutes. pt informed that if no urine at 1100 she will get straight cath for sample.
[2020-03-12 11:21] LABS: Add Urine Microscopic? YES; Appearance Urine Cloudy (Clear); Bacteria Urine Trace /hpf; Bilirubin Urine Negative (Negative); Blood Urine Negative (Negative); Color Urine Yellow (Yellow); Glucose Urine UA 3+ mg/dL (Negative); Ketones Urine 2+ mg/dL (Negative); Leukocyte Esterase Ur Negative LEU/UL (Negative); Mucus Urine Moderate /lpf; Nitrate Urine Negative (Negative); Protein Urine 1+ mg/dL (Negative); RBC Urine 0-2 /hpf (0-2); Specific Grav Ur 1.024 (1.001-1.035); Squamous Epithelial Cell Urine Many /hpf (Few); Urobilinogen Urine Negative mg/dL (<2.0)
[2020-03-12] MEDS: PYRIDOXINE HCL 100 MG/ML VIAL (*SPC) 50 MG IV PUSH ×2 (11:29→17:04)
[2020-03-12 12:17] VITALS: BP 130/83; PULSE 91; RESP 18; O2SAT 100
--- NOTE | 2020-03-12 12:17 | PC.NURSE ---
Pt states she is nauseous again. states she gets more nauseous when she moves.
[2020-03-12 14:46] VITALS: BP 106/68; PULSE 84; RESP 18; O2SAT 100
--- NOTE | 2020-03-12 14:55 | PC.NURSE ---
Pt brought from ED per wheelchair.
--- NOTE | 2020-03-12 14:55 | OBADM ---
This patient, Aisha Cuevas, admitted to the OB room OB Post 112 for observation. Patient/family oriented to hospital policies and general routines including ID bracelet, bed and alarms, visiting hours, pain management, procedures, bathroom and other care routines, personal items, smoking policy, room service/diet, and visiting hours. Patient/Family are encouraged to report perceived risks to care and to ask questions if they do not understand what they are told or what they should do.
[2020-03-12 15:15] VITALS: BMI 20.5
--- NOTE | 2020-03-12 15:16 | PC.NURSE ---
Dr. Patel informed pt here from ED. Informed MD that pt's K+ level was 2.9 and I had called ED prior to pt's arrival to have them place orders for that. Reviewed pt's meds from prior visit. Orders received.
--- NOTE | 2020-03-12 15:20 | PC.NURSE ---
Pt requesting to shower before IV fluids restarted. Shower supplies brought to pt.
[2020-03-12 16:11] VITALS: BP 129/85; PULSE 64; RESP 16; TEMP 36.7
[2020-03-12] MEDS: DEXTROSE 5%/LACTATED RINGERS 1,000 ML 100 ML IV CONT ×2 (16:16→23:38)
[2020-03-12] MEDS: FAMOTIDINE 20 MG/2 ML VIAL IV PUSH (18:30)
[2020-03-12] MEDS: ZOLPIDEM TARTRATE (*CRX) 5 MG TABLET PO (23:32)
[2020-03-13 05:13] VITALS: TEMP 36.7
[2020-03-13 05:35] VITALS: BP 122/67; PULSE 71
[2020-03-13] MEDS: FAMOTIDINE 20 MG/2 ML VIAL IV PUSH (05:35)
[2020-03-13] MEDS: ONDANSETRON INJ 4 MG/2 ML VIAL IV PUSH ×2 (05:35→12:12)
[2020-03-13] MEDS: DEXTROSE 5%/LACTATED RINGERS 1,000 ML 100 ML IV CONT (05:40)
[2020-03-13 06:19] LABS: Anion Gap 6 mmol/L (8-16); Calcium 8.6 mg/dL (8.4-10.2); Carbon Dioxide 25 mmol/L (22-30); Chloride 104 mmol/L (98-107); Estimated CRCL calculation 142 ml/min; Estimated Glomerular Filt Rate > 60; Glucose 105 mg/dL (65-105); Potassium 2.7 mmol/L (3.4-5.0); Sodium 135 mmol/L (137-145)
[2020-03-13 07:30] VITALS: BP 124/76; PULSE 68
[2020-03-13 07:46] LABS: Blood Urea Nitrogen < 2 mg/dL (7-17)
--- NOTE | 2020-03-13 07:46 | PC.NURSE ---
0730-- at bedside to discuss plan of care with patient. Pt refused IV potassium and requested oral. Dr. Chung agreed to oral medication and order placed. Discussed small amounts of ice chips and popsicles only until no emesis. Pt reports no emesis in past 1.5 hours.
--- NOTE | 2020-03-13 10:50 | PC.NURSE ---
1025--Pt elsie. Mother at bedside.
[2020-03-13] MEDS: POTASSIUM CHLORIDE 20 MEQ PACKET (FOR LIQUID) 40 MEQ PO (12:11)
[2020-03-13] MEDS: PYRIDOXINE HCL 100 MG/ML VIAL (*SPC) 50 MG IV PUSH (12:12)
--- NOTE | 2020-03-14 00:32 | PM.OBTRLD ---
OB - Triage/Final Diagnosis Visit Information Comments/Additional reasons for admission: I have assessed the risk for this patient, Aisha Cuevas, and determined that she would benefit from observation care. Evaluation Laboratory results: Laboratory Tests 03/12/20 03/12/20 03/12/20 09:35 09:35 11:08 WBC 9.5 RBC 4.25 Hgb 13.4 Hct 38.3 MCV 90.1 MCH 31.5 MCHC 35.0 RDW 12.1 Plt Count 316 MPV 10.3 Immature Gran % (Auto) 0.3 Neut % (Auto) 80.1 H Lymph % (Auto) 14.6 L Mobile % (Auto) 4.8 Eos % (Auto) 0.1 Baso % (Auto) 0.1 L Lymph # (Auto) 1.39 Mobile # (Auto) 0.5 Eos # (Auto) 0.0 Baso # (Auto) 0.0 Abs Immat Gran (auto) 0.03 Absolute Neuts (auto) 7.6 H Absolute Nucleated RBC 0.0 Nucleated RBC % 0.0 Sodium 135 L Potassium 2.9 L Chloride 100 Carbon Dioxide 27 Anion Gap 8 BUN 9 D Creatinine 0.50 L Estim Creat Clear Calc 116 Estimated GFR > 60 Glucose 110 H Calcium 9.6 Total Bilirubin 0.5 AST 25 ALT 21 Alkaline Phosphatase 56 Total Protein 8.0 Albumin 4.6 Lipase 35 Urine Color Yellow Urine Appearance Cloudy H Urine pH 7.0 Ur Specific [place] 1.024 Urine Protein 1+ H Urine Glucose (UA) 3+ H Urine Ketones 2+ H Ur Blood (Man) Negative Urine Nitrate Negative Urine Bilirubin Negative Urine Urobilinogen Negative Leukocyte Esterase Rfl Negative Urine RBC 0-2 Urine WBC 4-6 H Ur Squamous Epith Cells Many H Urine Bacteria Trace Urine Mucus Moderate H 03/13/20 05:54 WBC RBC Hgb Hct MCV MCH MCHC RDW Plt Count MPV Immature Gran % (Auto) Neut % (Auto) Lymph % (Auto) Mobile % (Auto) Eos % (Auto) Baso % (Auto) Lymph # (Auto) Mobile # (Auto) Eos # (Auto) Baso # (Auto) Abs Immat Gran (auto) Absolute Neuts (auto) Absolute Nucleated RBC Nucleated RBC % Sodium 135 L Potassium 2.7 L* Chloride 104 Carbon Dioxide 25 Anion Gap 6 L BUN < 2 L Creatinine 0.40 L Estim Creat Clear Calc 142 Estimated GFR > 60 Glucose 105 Calcium 8.6 Total Bilirubin AST ALT Alkaline Phosphatase Total Protein Albumin Lipase Urine Color Urine Appearance Urine pH Ur Specific [place] Urine Protein Urine Glucose (UA) Urine Ketones Ur Blood (Man) Urine Nitrate Urine Bilirubin Urine Urobilinogen Leukocyte Esterase Rfl Urine RBC Urine WBC Ur Squamous Epith Cells Urine Bacteria Urine Mucus Vital signs: Vital Signs - 24 hr 03/13/20 05:13 03/13/20 05:35 03/13/20 07:30 Temperature 36.7 C Pulse Rate 71 68 Blood Pressure 122/67 124/76 Final Diagnosis (1) Hyperemesis gravidarum: Code(s): O21.0 - Mild hyperemesis gravidarum Status: Acute (2) Hypokalemia: Code(s): E87.6 - Hypokalemia Status: Acute
== END 2020-03-13 13:55 | disposition home or self-care (01) ==
LOC: ANHED 14:51 → ANHOBPP 03-13 13:09
PROVIDERS: Admitting Provider Obstetrics & Gynecology Gynecology; Emergency Provider Emergency Medicine; PCP Obstetrics & Gynecology Gynecology; Visit Provider Obstetrics & Gynecology
DX: O21.0 Mild hyperemesis gravidarum (principal); O99.281 Endocrine, nutritional and metabolic diseases complicating pregnancy, first trimester; E87.6 Hypokalemia; Z3A.12 12 weeks gestation of pregnancy; O99.331 Smoking (tobacco) complicating pregnancy, first trimester; F17.290 Nicotine dependence, other tobacco product, uncomplicated
CPT/HCPCS: 36415; 80048; 80053; 81001; 83690; 85025; 96361; 96365; 96366; 96368; 96374; 96375; 96376; 99285; A9270; G0378; G0379; J0131; J2405; J3415; J3480; J7121

== ENCOUNTER 2020-03-14 18:00 | Observation (INO) | payer OTHER, SELFPAY ==
[2020-03-14 19:20] VITALS: TEMP 36.8
[2020-03-14 19:45] LABS: Add Urine Microscopic? YES; Appearance Urine Cloudy (Clear); Bacteria Urine Trace /hpf; Bilirubin Urine Negative (Negative); Blood Urine Negative (Negative); Color Urine Yellow (Yellow); Glucose Urine UA Negative (Negative); Ketones Urine 1+ mg/dL (Negative); Leukocyte Esterase Ur Negative LEU/UL (Negative); Mucus Urine Rare /lpf; Nitrate Urine Negative (Negative); Protein Urine 1+ mg/dL (Negative); RBC Urine 0-2 /hpf (0-2); Specific Grav Ur 1.014 (1.001-1.035); Squamous Epithelial Cell Urine Moderate /hpf (Few)
[2020-03-14 20:00] VITALS: BMI 21.0
[2020-03-14] MEDS: DEXTROSE 5%/LACTATED RINGERS 1,000 ML 999 ML IV CONT (20:18)
[2020-03-14 20:53] VITALS: BP 109/57; PULSE 71
[2020-03-14 20:54] LABS: Potassium 2.9 mmol/L (3.4-5.0)
[2020-03-14] MEDS: POTASSIUM CHLORIDE 10 MEQ TABLET 20 MEQ PO (22:03)
--- NOTE | 2020-03-14 23:31 | LDADM ---
This patient, Aisha Cuevas, was admitted to [facility] Post 117 on 03/14/20 at 18:00. Plans for labor, pain management and were discussed with patient. Patient/family oriented to hospital policies and general routines including ID bracelet, bed and alarms, visiting hours, pain management, procedures, bathroom and other care routines, personal items, smoking policy, room service/diet and guest tray routines, security routines, and visiting hours. Patient/Family are encouraged to report perceived risks to care and to ask questions if they do not understand what they are told or what they should do. See OBIX for further documentation.
--- NOTE | 2020-03-29 11:16 | PM.OBTRLD ---
OB - Triage/Final Diagnosis Visit Information Comments/Additional reasons for admission: I have assessed the risk for this patient, Aisha Cuevas, and determined that she would benefit from observation care. Evaluation Laboratory results: Laboratory Tests 03/14/20 03/14/20 19:35 20:40 Potassium 2.9 L Urine Color Yellow Urine Appearance Cloudy H Urine pH 7.0 Ur Specific [place] 1.014 Urine Protein 1+ H Urine Glucose (UA) Negative Urine Ketones 1+ H Ur Blood (Man) Negative Urine Nitrate Negative Urine Bilirubin Negative Urine Urobilinogen 2.0 H Leukocyte Esterase Rfl Negative Urine RBC 0-2 Urine WBC 7-9 H Ur Squamous Epith Cells Moderate H Urine Bacteria Trace Urine Mucus Rare Final Diagnosis (1) Hypokalemia: Code(s): E87.6 - Hypokalemia Status: Acute (2) Hyperemesis gravidarum: Code(s): O21.0 - Mild hyperemesis gravidarum Status: Acute
== END 2020-03-14 22:23 | disposition home or self-care (01) ==
PROVIDERS: Admitting Provider Obstetrics & Gynecology; PCP Family Medicine; Visit Provider Obstetrics & Gynecology
DX: O99.280 Endocrine, nutritional and metabolic diseases complicating pregnancy, unspecified trimester (principal); E87.6 Hypokalemia; O21.0 Mild hyperemesis gravidarum; Z3A.00 Weeks of gestation of pregnancy not specified
CPT/HCPCS: 36415; 81001; 84132; 87086; 96360; A9270; G0378; G0379; J7121

== ENCOUNTER 2020-03-17 16:04 | Observation (INO) | payer OTHER, SELFPAY ==
[2020-03-17 16:17] VITALS: BP 119/66; PULSE 84
[2020-03-17 18:00] VITALS: BMI 20.1
--- NOTE | 2020-03-17 18:00 | OBADM ---
This patient, Aisha Cuevas, admitted to the OB room OB Post 116 for observation. Patient/family oriented to hospital policies and general routines including ID bracelet, bed and alarms, visiting hours, pain management, procedures, bathroom and other care routines, personal items, smoking policy, room service/diet, and visiting hours. Patient/Family are encouraged to report perceived risks to care and to ask questions if they do not understand what they are told or what they should do.
[2020-03-17 18:45] VITALS: TEMP 37.1
[2020-03-17] MEDS: DEXTROSE 5%/LACTATED RINGERS 1,000 ML 999 ML IV CONT (18:50)
[2020-03-17 19:11] LABS: Basophils Percent Auto 0.2 % (0.2-1.2); Eosinophils Absolute Auto 0.1 K/mm3 (0-0.3); Eosinophils Percent Auto 0.5 % (0-4.4); Hematocrit 33.8 % (37.0-47.0); Hemoglobin 12.3 g/dL (12.0-15.0); Immature Granulocyte Absolute 0.02 K/mm3 (0.00-0.031); Immature Granulocyte Percent A 0.2 % (0-0.5); Lymphocytes Absolute Auto 2.67 K/mm3 (0.9-3.2); Lymphocytes Percent Auto 29.2 % (18.3-44.2); Mean Corpuscular HGB Conc 36.4 g/dl (32-36); Mean Corpuscular Hemoglobin 32.2 pg (26-34); Mean Corpuscular Volume 88.5 fl (80-100); Mean Platelet Volume 10.6 fl (7.4-10.4); Monocytes Absolute Auto 0.7 K/mm3 (0.1-0.6); Monocytes Percent Auto 7.8 % (2.6-8.5); Neutrophils Absolute Auto 5.7 K/mm3 (1.3-6.7); Neutrophils Percent Auto 62.1 % (45.5-73.1); Platelet Count Result 306 k/mm3 (150-375); Red Blood Count 3.82 M/mm3 (4.2-5.4); Red Cell Distribution Width 12.2 % (11.5-14.5); White Blood Count 9.2 K/mm3 (4.5-10.0)
[2020-03-17] MEDS: LORATADINE 10 MG TABLET PO (19:13)
[2020-03-17] MEDS: ONDANSETRON INJ 4 MG/2 ML VIAL IV PUSH (19:13)
[2020-03-17 19:19] LABS: Hemoglobin A1C 4.5 % (<5.7)
[2020-03-17] MEDS: HYDROCORTISONE 2.5% CREAM 30 GM TUBE 1 APPLIC TOPICAL (19:26)
[2020-03-17 19:38] LABS: Alanine Aminotransferase 14 U/L (4-35); Alkaline Phosphatase 46 U/L (38-126); Anion Gap 9 mmol/L (8-16); Aspartate Amino Transferase 18 U/L (14-36); Bilirubin,Total 0.8 mg/dL (0.2-1.3); Blood Urea Nitrogen 4 mg/dL (7-17); Carbon Dioxide 23 mmol/L (22-30); Chloride 99 mmol/L (98-107); Estimated CRCL calculation 180 ml/min; Estimated Glomerular Filt Rate > 60; Glucose 79 mg/dL (65-105); Lipase 43 U/L (23-300); Potassium 2.7 mmol/L (3.4-5.0); Sodium 131 mmol/L (137-145)
[2020-03-17 20:18] LABS: Vitamin D 25 Hydroxy 19.5 ng/mL
[2020-03-17] MEDS: THIAMINE HCL INJ 100 MG, FOLIC ACID INJ 1 MG, MULTIVITAMINS-12 INJ VIAL 1 5 ML, MULTIVI... 150 MG IV CONT (20:23)
[2020-03-17 20:36] LABS: Hepatitis B Surface Antigen Negative (Negative)
[2020-03-17] MEDS: POTASSIUM CHLORIDE INJ 40 MEQ in LACTATED RINGERS 1,000 ML 75 MEQ IV CONT (20:54)
[2020-03-17] MEDS: FAMOTIDINE 20 MG/2 ML VIAL IV PUSH (20:58)
[2020-03-17 21:20] VITALS: TEMP 37.1
[2020-03-17] MEDS: PYRIDOXINE HCL 100 MG/ML VIAL (*SPC) 50 MG IV PUSH (21:37)
[2020-03-17 21:43] LABS: HIV 1/2 Ab P24 Ag Result Negative (Negative)
[2020-03-18] VITALS (8 sets, daily range): BP systolic 114–136; BP diastolic 72–96; PULSE 64–84; TEMP 36.1–37.1; O2SAT 100
[2020-03-18] MEDS: ONDANSETRON INJ 4 MG/2 ML VIAL IV PUSH ×6 (01:00→23:39)
--- NOTE | 2020-03-18 06:12 | PC.NURSE ---
Pt requesting a pitcher of ice water. States she has been drinking and it has been staying down without any problems. Denies nausea at present. Glass of ice water brought to pt with instructions to sip slowly. I was still in the room at the computer when I noticed pt sit up and hold the emesis bag and then had 200 ml liquid emesis that was ice cold. Pt had chugged her entire glass in just a few seconds. Reminded Aisha that is the reason why we want her to sip frequently instead of drinking fast. Pt states, Don't yell at me. I had to drink it fast because I was so thirsty. I'd rather throw up than be that thirsty. Informed pt that I wasn't trying to yell at her, I was just trying to help her and keep her from throwing up.
[2020-03-18] MEDS: DEXTROSE 5%/LACTATED RINGERS 1,000 ML 75 ML IV CONT ×2 (07:00→22:16)
[2020-03-18 07:27] LABS: Rapid Plasma Reagin Non-Reactive (NonReactive)
[2020-03-18] MEDS: PYRIDOXINE HCL 100 MG/ML VIAL (*SPC) 50 MG IV PUSH ×3 (09:03→21:10)
[2020-03-18] MEDS: FAMOTIDINE 20 MG/2 ML VIAL IV PUSH ×2 (09:04→21:09)
[2020-03-18] MEDS: HYDROCORTISONE 2.5% CREAM 30 GM TUBE 1 APPLIC TOPICAL (09:05)
[2020-03-18] MEDS: POTASSIUM CHLORIDE INJ 40 MEQ in LACTATED RINGERS 1,000 ML 75 MEQ IV CONT (09:09)
--- NOTE | 2020-03-18 13:58 | PM.IMHP ---
H&P: HPI History of Present Illness Date/Time: 03/18/20 13:58 Chief Complaint: hyperemesis with weight loss Narrative: Aisha Cuevas is a 24 year old female at 13 weeks admitted from office with persistent severe hyperemesis gravidarium. Patient had gained weight and did ok post last longer admit but then slowly declined again. She has been in to get IV fluids several times. Now she has lost the 7 pounds she had gained and is still down 17 pounds from prepregnancy weight. She has had si8de effects with most meds for her nausea. She did best on IV zofran but oral did not hold her symptoms. Will keep admitted until po meds are working or if zofran pump is approved to trial. Review of Systems Constitutional: Constitutional: Reports lethargy, Reports malaise, Reports poor appetite and Reports weight loss Comments: near syncope Cardiovascular: Cardiovascular: Reports no additional cardiovascular complaints Respiratory: Respiratory: Reports no additional respiratory complaints Gastrointestinal: Gastrointestinal: Reports nausea and Reports vomiting Genitourinary: Comments: urine concentrated and not very often PMFSH Past Medical History Medical History (Updated 03/18/20 @ 14:04 by Divya Patel MD) Asthma Constipation Elevated liver enzymes resolved was from prior admit Hypokalemia Surgical History Surgical History History of tympanostomy Family History Family History Father Alive and well Mother Alive and well Social History Social History Smoking packs per day: 0.5 Smoking cigarettes per day: 10.0 Years smoked: 10 Smoking pack-years: 5.00 Smoking status: Current some day smoker Tobacco type: cigarettes and e-cigarettes/vaping Second hand tobacco smoke exposure: Yes Additional smoking assessment comments: HAS BEEN SMOKING PUFF BAR SINCE NOVEMBER 2019 Alcohol intake: former Substance use: current Substance use type: marijuana Other substance usage details: OCCASIONAL MARIJUANA Gender identity (if verbalized by the patient): Female Spiritual care concerns: No Meds Home Medications and Allergies Home Medications Medication Instructions Recorded Confirmed Type docusate sodium 100 mg PO Q12HR #60 cap 02/14/20 03/12/20 Rx famotidine 20 mg PO Q12HR #60 tablet 02/14/20 03/12/20 Rx ondansetron 4 mg PO Q6H #30 tablet 02/26/20 03/12/20 Rx pyridoxine (vitamin B6) [Vitamin 50 mg PO BID #60 tablet 02/26/20 03/12/20 Rx B-6] potassium chloride 20 meq PO BID #60 ml 03/14/20 Rx Allergies Allergy/AdvReac Type Severity Reaction Status Date / Time diphenhydramine Allergy Palpitation Verified 03/12/20 09:33 [From [place]] s metoclopramide AdvReac Unknown Anxiety Verified 03/12/20 09:33 prochlorperazine AdvReac Unknown Anxiety Verified 03/12/20 09:33 Vital Signs Vital Signs - 24 hr 03/17/20 16:17 03/17/20 18:45 03/17/20 21:20 Temperature 98.8 F 98.8 F Pulse Rate 84 Blood Pressure 119/66 03/18/20 07:07 03/18/20 07:08 Temperature 98.1 F Pulse Rate 68 Blood Pressure 130/88 Exam Const: General: lethargic, tired appearing, uncomfortable and other (can barely walk to room in office) Nutritional Appearance: malnourished and thin Orientation/consciousness: oriented to person, oriented to place and oriented to time HENMT: Mouth: No moist mucous membranes GI: GI Palp: No abdominal tenderness Auscultation: other (FHTs 150's by doppler) H&P: Results Labs Labs: Short CBC 03/17/20 Range/Units 17:15 WBC 9.2 (4.5-10.0) K/mm3 Hgb 12.3 (12.0-15.0) g/dL Hct 33.8 L (37.0-47.0) % Plt Count 306 (150-375) k/mm3 BMP 03/17/20 17:15 Sodium 131 L Potassium 2.7 L* Chloride 99 Carbon Dioxide 23 BUN 4 L Creatinine 0.30 L Glucose 79 Calcium 9.0
--- NOTE | 2020-03-18 14:42 | PC.NURSE ---
Pt has been sleeping most of the morning with no complaints. She requested water to drink. RN reminded pt to sip and not drink the fluid rapidly in order to hopefully keep it down. She verbalized understanding. Pt is awake now with her mother at bedside. Pt did not call out for her urine to be dumped. BSC is placed at bedside and pt reminded to call RN for needs. She states she has emptied 600, 400, and 300 of urine. She has been drinking water and has thrown it up. RN measured 350 of clear liquid from emesis bag. Pt places ice pack to forehead and states she wants to not feel like crap . RN left the room with maternal mother at bedside, pt lying right lateral with IV fluids infusing well and ice pack to her forehead. Call light is near pt for needing assistance.
[2020-03-18] MEDS: ZOLPIDEM TARTRATE (*CRX) 5 MG TABLET PO (23:39)
[2020-03-19] MEDS: ONDANSETRON INJ 4 MG/2 ML VIAL IV PUSH (04:40)
[2020-03-19] MEDS: DEXTROSE 5%/LACTATED RINGERS 1,000 ML 75 ML IV CONT (06:59)
[2020-03-19 08:15] VITALS: BP 124/83; PULSE 75
--- NOTE | 2020-03-19 08:43 | PC.NURSE ---
0815- In patient room for morning assessment and vitals. Upon entering, patient asked when her Dr. Would be in to see her. Informed patient I had just spoken to Dr. Chung and she would be in around noon to see her, also that Dr. Chung was continuing to work on her Zofran pump for home, but that it may be early next week before it is approved and patient will remain hospitalized until then. Patient immediately started crying and stating that she cannot stay here all weekend. Patient calling her mom to come sit with her until Dr. Chung gets here, but she will not come now. After hanging up with her mom, patient states im ripping this f IV out and leaving, im not staying here all weekend. I stopped patient from ripping her IV out and told her I would come talk to Dr. Chung and ensure she is wanting her IV removed since it took [address] one. Patient calmed down and agreed to let me talk to Dr. Chung before removing IV. 0825- Paged Dr. Chung. 0835- Dr. Chung returned page. Informed her that patient was wanting to leave AMA, crying, cussing and trying to take IV out on her own. 0840- Returned to patient room, patient states she is still going to leave AMA. Has called boyfriend for a ride. IV access removed. Patient signed AMA form. 0845- Patient walked off unit with belongings.
[2020-03-27 19:28] LABS: CF Result NEGATIVE (NEGATIVE); Ethnicity CAUCASIAN
--- NOTE | 2020-03-29 09:52 | P.PNOB_ITS ---
OB - PN: Subj Subjective Date/time seen: 03/29/20 09:52 OB - PN: Obj Data Labs CBC & Chem 7: 03/17/20 17:15 03/18/20 17:39 OB - PN A/P Assessment and Plan (1) Hyperemesis gravidarum: Code(s): O21.0 - Mild hyperemesis gravidarum Status: Acute Assessment and Plan: While Dr. Chung was covering patient, patient decided to not wait for Dr. Chung to round and left AMA. (2) Hypokalemia: Code(s): E87.6 - Hypokalemia Status: Acute Time Spent With Patient Time: Total time spent is greater than 50% in coordination of care (as docume nted) at patient's floor/unit and/or counseling patient:
== END 2020-03-19 08:45 | disposition left against medical advice (07) ==
LOC: ANHOBPP 16:10
PROVIDERS: Obstetrics & Gynecology; Admitting Provider Obstetrics & Gynecology Gynecology; Visit Provider Obstetrics & Gynecology Gynecology
DX: O21.0 Mild hyperemesis gravidarum (principal); R63.4 Abnormal weight loss; O99.511 Diseases of the respiratory system complicating pregnancy, first trimester; J45.909 Unspecified asthma, uncomplicated; O99.281 Endocrine, nutritional and metabolic diseases complicating pregnancy, first trimester; E87.6 Hypokalemia; Z79.899 Other long term (current) drug therapy; O99.331 Smoking (tobacco) complicating pregnancy, first trimester; F17.290 Nicotine dependence, other tobacco product, uncomplicated; F12.90 Cannabis use, unspecified, uncomplicated; Z3A.13 13 weeks gestation of pregnancy
CPT/HCPCS: 36415; 80053; 81220; 82306; 83036; 83690; 84132; 85025; 86592; 86703; 86762; 86850; 86900; 86901; 87340; 96361; 96365; 96366; 96367; 96368; 96374; 96375; 96376; A9270; G0378; G0379; G0432; J0131; J2405; J3411; J3415; J3475; J3480; J7120; J7121

== ENCOUNTER 2020-04-02 16:02 | Observation (INO) | payer OTHER, SELFPAY ==
[2020-04-02 16:30] VITALS: TEMP 36.8
[2020-04-02 16:31] VITALS: BP 112/73; PULSE 97
[2020-04-02 16:37] LABS: Hematocrit 37.3 % (37.0-47.0); Hemoglobin 13.8 g/dL (12.0-15.0); Mean Corpuscular Volume 86.5 fl (80-100); Mean Platelet Volume 11.3 fl (7.4-10.4); Platelet Count Result 280 k/mm3 (150-375); Red Blood Count 4.31 M/mm3 (4.2-5.4); Red Cell Distribution Width 11.7 % (11.5-14.5); White Blood Count 7.4 K/mm3 (4.5-10.0)
[2020-04-02] MEDS: ONDANSETRON INJ 4 MG/2 ML VIAL IV PUSH ×2 (16:44→22:42)
[2020-04-02] MEDS: DEXTROSE 5%/LACTATED RINGERS 1,000 ML 999 ML IV CONT (16:44)
[2020-04-02] MEDS: FAMOTIDINE 20 MG/2 ML VIAL IV PUSH (16:44)
[2020-04-02 16:56] LABS: Alanine Aminotransferase 44 U/L (4-35); Albumin Level 4.6 g/dL (3.5-5.1); Alkaline Phosphatase 79 U/L (38-126); Anion Gap 14 mmol/L (8-16); Aspartate Amino Transferase 60 U/L (14-36); Bilirubin,Total 3.2 mg/dL (0.2-1.3); Blood Urea Nitrogen 4 mg/dL (7-17); Calcium 9.6 mg/dL (8.4-10.2); Carbon Dioxide 26 mmol/L (22-30); Chloride 89 mmol/L (98-107); Estimated Glomerular Filt Rate > 60; Glucose 103 mg/dL (65-105); Potassium 2.8 mmol/L (3.4-5.0); Sodium 129 mmol/L (137-145)
--- NOTE | 2020-04-02 17:33 | PC.NURSE ---
Patient states that she is feeling a little better, still unable to void.
[2020-04-02] MEDS: POTASSIUM CHLORIDE 20 MEQ TABLET 40 MEQ PO ×2 (17:42→21:40)
[2020-04-02] MEDS: DEXTROSE 5%/LACTATED RINGERS 1,000 ML 200 ML IV CONT ×2 (17:42→21:40)
[2020-04-02 17:50] VITALS: BMI 18.3
[2020-04-02 18:02] LABS: Add Urine Microscopic? YES; Appearance Urine Clear (Clear); Bacteria Urine Trace /hpf; Bilirubin Urine Negative (Negative); Blood Urine Negative (Negative); Color Urine Amber (Yellow); Glucose Urine UA 3+ mg/dL (Negative); Ketones Urine 2+ mg/dL (Negative); Leukocyte Esterase Ur Negative LEU/UL (NEGATIVE); Mucus Urine Rare /lpf; Nitrate Urine Negative (Negative); Protein Urine 1+ mg/dL (Negative); RBC Urine 0-2 /hpf (0-2); Specific Grav Ur 1.024 (1.001-1.035); Squamous Epithelial Cell Urine Many /hpf (Few); WBC Urine 0-3 /hpf (0-3)
[2020-04-02 19:08] VITALS: BP 110/63; PULSE 103
[2020-04-02 19:10] VITALS: RESP 18; TEMP 37
--- NOTE | 2020-04-02 19:15 | PC.NURSE ---
Pt states feeling better. Was sleeping upon nurse entering room. Denies nausea at this time. Up to bathroom, voiding freely but decreased ouput. IVF's continued as ordered. Pt requesting ice chips and ice water at this time, provided. Encouraged to go slow with intake to avoid emesis. Pt declines jello/popsicle at this time. Call light within reach. Denies any other needs at this time.
[2020-04-02] MEDS: ZOLPIDEM TARTRATE (*CRX) 5 MG TABLET PO (21:53)
--- NOTE | 2020-04-02 21:53 | PC.NURSE ---
Pt has been dozing. Request for Ambien. Denies nausea at this time. Declines food but has been tolerating water intake. Had larger void and urine has changed from blessing to bright yellow. Pt requesting zofran as soon as available but ask nurse not to wake her to give it. Denies any other needs at this time. Call light within reach.
[2020-04-03] VITALS (9 sets, daily range): BP systolic 85–116; BP diastolic 49–74; PULSE 77–92; RESP 15–16; TEMP 36.7–37.1
[2020-04-03] MEDS: DEXTROSE 5%/LACTATED RINGERS 1,000 ML 200 ML IV CONT ×3 (02:43→14:01)
--- NOTE | 2020-04-03 03:18 | PC.NURSE ---
Pt anxious to go outside and smoke. Explained we are a smoke free campus. 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 Requesting a patch. Call to for nicotine patch order at pt request.
[2020-04-03] MEDS: NICOTINE (*PBKC) 7 MG PATCH 1 PATCH TRANSDERM ×2 (03:37→11:48)
[2020-04-03] MEDS: ONDANSETRON INJ 4 MG/2 ML VIAL IV PUSH ×3 (05:48→20:24)
--- NOTE | 2020-04-03 08:11 | PC.NURSE ---
0800--Went to change pt's IV bag, Pt hands me an emesis bag with 600cc liquid emesis. When I asked her about it, she states that it is from her whole admission and that she never told anyone that she threw up because they would take away my water. Education provided to pt. regarding the need to tell us about emesis and resting her stomach. Educted re: small amounts of intake at a time. Pt. states that she gets thirsty and just has to drink. She says that she feels better after vomiting and just doesn't want us to take her water away .
[2020-04-03] MEDS: FAMOTIDINE 20 MG/2 ML VIAL IV PUSH ×2 (09:09→20:59)
[2020-04-03 09:20] LABS: Potassium 2.8 mmol/L (3.4-5.0)
--- NOTE | 2020-04-03 10:16 | PM.IMHP ---
H&P: HPI History of Present Illness Date/Time: 04/03/20 10:16 Chief Complaint: vomiting Narrative: Aisha Cuevas is a 25 year old female at 15 weeks with hyperemesis readmitted for fluids and K+. Patient states she ran out of her zofran and couldn't keep anything down. Since yesterday vomited 600+ unmeasured amounts. She has been flushing both her urine and vomit and not telling nursing staff. Patient stated to me that she drinks a lot of water when she is nauseated in order to throw up and feel better. She has done this on each hospital stay. [facility] Past Medical History Medical History (Updated 03/18/20 @ 14:04 by Divya Patel MD) Asthma Constipation Elevated liver enzymes resolved was from prior admit Hypokalemia Surgical History Surgical History History of tympanostomy Family History Family History Father Alive and well Mother Alive and well Social History Social History Smoking packs per day: 0.5 Smoking cigarettes per day: 10.0 Years smoked: 10 Smoking pack-years: 5.00 Smoking status: Current some day smoker Tobacco type: cigarettes and e-cigarettes/vaping Second hand tobacco smoke exposure: Yes Additional smoking assessment comments: HAS BEEN SMOKING PUFF BAR SINCE NOVEMBER 2019 Alcohol intake: former Substance use: current Substance use type: marijuana Other substance usage details: OCCASIONAL MARIJUANA Gender identity (if verbalized by the patient): Female Spiritual care concerns: No Meds Home Medications and Allergies Home Medications Medication Instructions Recorded Confirmed Type ondansetron 4 mg PO Q6H #30 tablet 02/26/20 04/02/20 Rx Allergies Allergy/AdvReac Type Severity Reaction Status Date / Time diphenhydramine Allergy Palpitation Verified 03/12/20 09:33 [From Benadryl] s metoclopramide AdvReac Unknown Anxiety Verified 03/12/20 09:33 prochlorperazine AdvReac Unknown Anxiety Verified 03/12/20 09:33 Vital Signs Vital Signs - 24 hr 04/02/20 16:30 04/02/20 16:31 04/02/20 19:08 Temperature 98.3 F Pulse Rate 97 103 H Respiratory Rate Blood Pressure 112/73 110/63 04/02/20 19:10 04/03/20 05:49 04/03/20 07:48 Temperature 98.6 F 98.5 F Pulse Rate 88 92 Respiratory Rate 18 16 Blood Pressure 89/56 L 116/74 04/03/20 08:03 04/03/20 08:05 Temperature 98.4 F 98.4 F Pulse Rate Respiratory Rate 16 15 Blood Pressure Exam Const: General: comfortable, alert and awake Nutritional Appearance: malnourished GI: GI Palp: No abdominal tenderness, Yes Soft to palpation and Yes Other GI palpation findings present (gravid with uterus U-4) H&P: Results Labs Labs: Short CBC 04/02/20 Range/Units 16:31 WBC 7.4 (4.5-10.0) K/mm3 Hgb 13.8 (12.0-15.0) g/dL Hct 37.3 (37.0-47.0) % Plt Count 280 (150-375) k/mm3 [facility] 04/02/20 04/03/20 16:31 09:02 Sodium 129 L Potassium 2.8 L* 2.8 L* Chloride 89 L Carbon Dioxide 26 BUN 4 L Creatinine 0.40 L Glucose 103 Calcium 9.6 Liver Function 04/02/20 Range/Units 16:31 Total Bilirubin 3.2 H (0.2-1.3) mg/dL AST 60 H (14-36) U/L ALT 44 H (4-35) U/L Alkaline Phosphatase 79 (38-126) U/L Albumin 4.6 (3.5-5.1) g/dL Urine 04/02/20 Range/Units 17:52 Urine Color Paula (Yellow) Urine Appearance Clear (Clear) Urine pH 6.0 (5.0-9.0) Ur Specific [place] 1.024 (1.001-1.035) Urine Protein 1+ H (Negative) mg/dL Urine Glucose (UA) 3+ H (Negative) mg/dL Assessment and Plan Assessment and plan (1) Hyperemesis gravidarum: Code(s): O21.0 - Mild hyperemesis gravidarum Status: Acute Assessment and Plan: continue IV hydration and IV meds (2) Hypokalemia: Code(s): E87.6 - Hypokalemia Status: A
[2020-04-03] MEDS: ACETAMINOPHEN 500 MG TABLET 1000 MG PO (16:30)
--- NOTE | 2020-04-03 23:26 | PC.NURSE ---
2320 - pt requesting to have her IV fluids stopped; pt states she is refusing D5LR at this point. IV saline locked.
[2020-04-04 02:58] LABS: Potassium 3.5 mmol/L (3.4-5.0)
== END 2020-04-04 03:17 | disposition home or self-care (01) ==
PROVIDERS: Admitting Provider Obstetrics & Gynecology Gynecology; Visit Provider Obstetrics & Gynecology Gynecology
DX: O21.0 Mild hyperemesis gravidarum (principal); E87.6 Hypokalemia; O99.332 Smoking (tobacco) complicating pregnancy, second trimester; F17.210 Nicotine dependence, cigarettes, uncomplicated; Z3A.15 15 weeks gestation of pregnancy
CPT/HCPCS: 36415; 80053; 81001; 84132; 85027; 87086; 96361; 96365; 96366; 96374; 96375; 96376; A9270; G0378; G0379; J2405; J3480; J7121

== ENCOUNTER 2020-04-08 19:25 | Observation (INO) | payer OTHER, SELFPAY ==
--- NOTE | 2020-04-08 19:45 | PC.NURSE ---
Pt states she has been vomiting since yesterday. Pt has history of hyperemesis with this . Several admissions here for same. Pt states she has lived here for this Pt states she has been prescribed Zofran but has run out of the dissolvable type and the tablet form does not work. Has not taken since yesterday. Pt is prescribed Pepcid but is not taking it. On arrival pt appears agitated and impatient. States she wants Zofran quickly.
[2020-04-08 19:52] VITALS: BP 134/90; PULSE 93
[2020-04-08] MEDS: DEXTROSE 5%/LACTATED RINGERS 1,000 ML 999 ML IV CONT (20:51)
[2020-04-08] MEDS: ONDANSETRON INJ 4 MG/2 ML VIAL IV PUSH (20:52)
[2020-04-08] MEDS: FAMOTIDINE 20 MG/2 ML VIAL IV PUSH (20:52)
[2020-04-08 21:06] VITALS: BP 78/57; PULSE 82
[2020-04-08 21:34] LABS: Alanine Aminotransferase 23 U/L (4-35); Albumin Level 3.6 g/dL (3.5-5.1); Alkaline Phosphatase 67 U/L (38-126); Anion Gap 6 mmol/L (8-16); Aspartate Amino Transferase 25 U/L (14-36); Bilirubin,Total 0.5 mg/dL (0.2-1.3); Blood Urea Nitrogen 3 mg/dL (7-17); Calcium 8.9 mg/dL (8.4-10.2); Carbon Dioxide 29 mmol/L (22-30); Chloride 99 mmol/L (98-107); Estimated Glomerular Filt Rate > 60; Glucose 99 mg/dL (65-105); Sodium 134 mmol/L (137-145)
[2020-04-08 21:40] LABS: Potassium 2.9 mmol/L (3.4-5.0)
--- NOTE | 2020-04-08 21:40 | PC.NURSE ---
Pt states she needs a bedside commode so she does not have to walk to bathroom. Bedside commode to room. Pt has vomited x2 in bathroom. Not seen by nurse. Pt requests water to drink. States water makes her vomit and vomiting makes her feel better. Discussed need to take ice chips and small amounts of water.
--- NOTE | 2020-04-08 21:49 | PC.NURSE ---
Dr. Patel notifed of pt K level. ORderes received.
[2020-04-08] MEDS: DEXTROSE 5%/LACTATED RINGERS 1,000 ML 75 ML IV CONT (23:06)
--- NOTE | 2020-04-09 00:33 | PC.NURSE ---
Addendum entered by Marin Mckeon, MARIA M 04/09/20 00:36: TIME NOTE 2450 Original Note: Difficulty with IV. Dr. Christensen notified and came over to start after missed attempt left wrist and forearm. 18
--- NOTE | 2020-04-09 00:52 | PC.NURSE ---
heart tones per Doppler in LLQ 150's
--- NOTE | 2020-04-09 02:47 | PC.NURSE ---
Pt continues to sleep. No vomiting since a short time after arrival.
[2020-04-09] MEDS: ONDANSETRON INJ 4 MG/2 ML VIAL IV PUSH ×2 (03:06→08:59)
[2020-04-09] MEDS: ACETAMINOPHEN 325 MG TABLET 650 MG PO ×2 (03:29→08:03)
[2020-04-09 03:36] VITALS: BP 119/77; PULSE 77
[2020-04-09 04:00] VITALS: BMI 19.0
--- NOTE | 2020-04-09 06:56 | PC.NURSE ---
Addendum entered by Marin Mckeon RN 04/09/20 07:01: NOTE TIME 0327 Original Note: Patient states she would like Tylenol for a headache. States feels like a migraine. Pt has been sleeping past 4 hours. No vomiting.
--- NOTE | 2020-04-09 07:48 | PC.NURSE ---
0740--Pt. requesting to go outside and smoke. Discussed importance of not smoking for her health and the health of the baby, offered nicotine patch like last time she was here. Pt. is adamant that she cannot be held in her room. Dr. Patel on unit, told her pt. is requesting to go outside and smoke. Orders to allow her to go outside. Pt's IV to saline lock and instructed to come directly back for continued IVF's.
--- NOTE | 2020-04-09 07:49 | PM.OBTRLD ---
OB - Triage/Final Diagnosis Visit Information Date of evaluation: 04/09/20 Reason for evaluation: other (hyperemesis) Comments/Additional reasons for admission: I have assessed the risk for this patient, Aisha Cuevas, and determined that she would benefit from observation care. Evaluation Laboratory results: Laboratory Tests 04/08/20 20:53 Sodium 134 L Potassium 2.9 L Chloride 99 Carbon Dioxide 29 Anion Gap 6 L BUN 3 L Creatinine 0.30 L Estim Creat Clear Calc Not Reportable Estimated GFR > 60 Glucose 99 Calcium 8.9 Total Bilirubin 0.5 AST 25 ALT 23 Alkaline Phosphatase 67 Total Protein 6.0 L Albumin 3.6 Vital signs: Vital Signs - 24 hr 04/08/20 19:52 04/08/20 21:06 04/09/20 03:36 Pulse Rate 93 82 77 Blood Pressure 134/90 78/57 L 119/77 Comments: Patient here again for hyperemesis. She ran out of her meds again and can't keep food or fluids down. K+ low and received 2 K+ riders. IV fluids give. Patient feels better. Once K+ normalized will send home. Final Diagnosis (1) Hyperemesis gravidarum: Code(s): O21.0 - Mild hyperemesis gravidarum Status: Acute (2) Hypokalemia: Code(s): E87.6 - Hypokalemia Status: Acute
[2020-04-09 07:50] VITALS: RESP 15; TEMP 36.5
[2020-04-09 08:00] VITALS: BP 128/78; PULSE 83
[2020-04-09] MEDS: FAMOTIDINE 20 MG/2 ML VIAL IV PUSH (09:01)
[2020-04-09] MEDS: DEXTROSE 5%/LACTATED RINGERS 1,000 ML 200 ML IV CONT (09:12)
[2020-04-09 11:41] LABS: Alanine Aminotransferase 18 U/L (4-35); Albumin Level 2.6 g/dL (3.5-5.1); Alkaline Phosphatase 44 U/L (38-126); Anion Gap 0 mmol/L (8-16); Aspartate Amino Transferase 19 U/L (14-36); Bilirubin,Total 0.4 mg/dL (0.2-1.3); Calcium 8.1 mg/dL (8.4-10.2); Carbon Dioxide 26 mmol/L (22-30); Chloride 106 mmol/L (98-107); Estimated CRCL calculation 169 ml/min; Estimated Glomerular Filt Rate > 60; Glucose 108 mg/dL (65-105); Potassium 3.3 mmol/L (3.4-5.0); Sodium 132 mmol/L (137-145)
--- NOTE | 2020-04-09 11:51 | PC.NURSE ---
1150--Reported K+ level to Dr. Patel, orders that pt. 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
[2020-04-09 11:53] LABS: Blood Urea Nitrogen < 2 mg/dL (7-17)
--- NOTE | 2020-04-09 12:24 | PC.NURSE ---
1215--IV DC'd, tip intact. DC instructions reviewed with pt., pt. states yeah, yeah, same thing every time and tossed her paperwork in the trashcan. I pulled the papers out of the trash can and told her that if she doesn't want them I will put them in the shred box. Pt. states whatever you want to do with them.
== END 2020-04-09 12:15 | disposition home or self-care (01) ==
PROVIDERS: Admitting Provider Obstetrics & Gynecology Gynecology; Visit Provider Obstetrics & Gynecology Gynecology
DX: O21.0 Mild hyperemesis gravidarum (principal); Z3A.16 16 weeks gestation of pregnancy; E87.6 Hypokalemia
CPT/HCPCS: 36415; 80053; 96361; 96374; 96375; 96376; A9270; G0378; G0379; J2405; J3480; J7121

== ENCOUNTER 2020-04-27 19:25 | Observation (INO) | payer OTHER, SELFPAY ==
--- NOTE | 2020-04-27 19:25 | OBADM ---
This patient, Aisha Cuevas, admitted to the OB room OB Post 117 for observation. Patient/family oriented to hospital policies and general routines including ID bracelet, bed and alarms, visiting hours, pain management, procedures, bathroom and other care routines, personal items, smoking policy, room service/diet, and visiting hours. Patient/Family are encouraged to report perceived risks to care and to ask questions if they do not understand what they are told or what they should do.
[2020-04-27 19:31] VITALS: BP 118/70; PULSE 87; RESP 20; TEMP 37.2
[2020-04-27 19:49] LABS: Glucose Point of Care 79 (65-105)
[2020-04-27 20:37] VITALS: BMI 19.8
[2020-04-27 20:40] LABS: Hemoglobin A1C 4.5 % (<5.7)
[2020-04-27 20:43] LABS: Anion Gap 3 mmol/L (8-16); Blood Urea Nitrogen 3 mg/dL (7-17); Calcium 8.8 mg/dL (8.4-10.2); Carbon Dioxide 30 mmol/L (22-30); Chloride 102 mmol/L (98-107); Estimated CRCL calculation 138 ml/min; Estimated Glomerular Filt Rate > 60; Glucose 82 mg/dL (65-105); Sodium 135 mmol/L (137-145)
[2020-05-01 15:06] LABS: Vitamin D 1,25 (OH)2 Total 81 pg/mL (18-72); Vitamin D2 1,25 (OH)2 <8 pg/mL; Vitamin D3 1,25 (OH)2 81 pg/mL
[2020-05-01 23:46] LABS: AFP, Serum 32.4 ng/mL; Cigarette Smoker Y; Estriol, Free 1.33 ng/mL; Inhibin A, Dimeric 264 pg/mL; Maternal Weight 109 lbs; Number of Fetuses 1; hCG MoM 0.62; hCG, Serum 16.9 IU/mL
--- NOTE | 2020-05-02 11:50 | PM.OBTRLD ---
OB - Triage/Final Diagnosis Visit Information Reason for evaluation: other (headache) Comments/Additional reasons for admission: I have assessed the risk for this patient, Aisha Cuevas, and determined that she would benefit from observation care. Evaluation Laboratory results: Laboratory Tests 04/27/20 04/27/20 04/27/20 19:46 20:21 20:21 Family Origin of Mother Sodium Potassium Chloride Carbon Dioxide Anion Gap BUN Creatinine Estim Creat Clear Calc Estimated GFR Glucose POC Capillary Glucose 79 Hemoglobin A1c 4.5 Calcium AFP Repeat Specimen Vit D 1,25-Dihyd Total 81 H 1,25 Dihydroxy Vit D2 <8 1,25 Dihydroxy Vit D3 81 Serum Collection Date Gestational Age (Calc) Estimated Delivery Date Est Date Determined By Maternal Date of Maternal Weight Cigarette Smoker (Maternal) Text Number of Fetuses Maternal Scrn Egg Donor Donor Age or Prev Down T21/Trisomy Preg AFP Absolute Value AFP MoM AFP Insulin Depend Maternal AFP Interp Maternal Serum HCG HCG Total MoM Unconj (Free) Estriol Estriol MoM Inhibin A MoM Mater Dimeric Inhibin A Down's Maternal Age Risk Down's Average Risk Trisomy 18 Risk Family History NTD NTD Risk 04/27/20 04/27/20 20:21 20:21 Family Origin of Mother White Sodium 135 L Potassium 3.0 L Chloride 102 Carbon Dioxide 30 Anion Gap 3 L BUN 3 L Creatinine 0.40 L Estim Creat Clear Calc 138 Estimated GFR > 60 Glucose 82 POC Capillary Glucose Hemoglobin A1c Calcium 8.8 AFP Repeat Specimen N Vit D 1,25-Dihyd Total 1,25 Dihydroxy Vit D2 1,25 Dihydroxy Vit D3 Serum Collection Date 04/27/2020 Gestational Age (Calc) 18.6 Estimated Delivery Date 09/24/2020 Est Date Determined By Us Maternal Date of 1995 Maternal Weight 109 Cigarette Smoker (Maternal) Text Y Number of Fetuses 1 Maternal Scrn Egg Donor N Donor Age or Not given Prev Down T21/Trisomy Preg N AFP Absolute Value 32.4 AFP MoM 0.55 AFP Insulin Depend N Maternal AFP Interp see below Maternal Serum HCG 16.9 HCG Total MoM 0.62 Unconj (Free) Estriol 1.33 Estriol MoM 0.71 Inhibin A MoM 1.46 Mater Dimeric Inhibin A 264 Down's Maternal Age Risk 1:1113 Down's Average Risk 1:2671 Trisomy 18 Risk <1:5000 Family History NTD N NTD Risk <1:5000
== END 2020-04-27 21:24 | disposition home or self-care (01) ==
PROVIDERS: Admitting Provider Obstetrics & Gynecology Gynecology; Visit Provider Obstetrics & Gynecology Gynecology
DX: O26.892 Other specified pregnancy related conditions, second trimester (principal); R51.9 Headache, unspecified; Z3A.18 18 weeks gestation of pregnancy
CPT/HCPCS: 36415; 80048; 82105; 82652; 82677; 82948; 83036; 84702; 86336; A9270; G0378; G0379

== ENCOUNTER 2020-05-06 16:32 | Observation (INO) | payer OTHER, SELFPAY ==
[2020-05-06 17:04] VITALS: BP 107/64; PULSE 77
[2020-05-06 17:05] VITALS: TEMP 37.1
[2020-05-06] MEDS: DEXTROSE 5%/LACTATED RINGERS 1,000 ML 999 ML IV CONT (17:54)
[2020-05-06] MEDS: ONDANSETRON INJ 4 MG/2 ML VIAL IV PUSH (17:56)
[2020-05-06 18:18] VITALS: BMI 19.6
[2020-05-06 18:20] LABS: Add Urine Microscopic? YES; Appearance Urine Cloudy (Clear); Bacteria Urine Trace /hpf; Bilirubin Urine Negative (Negative); Blood Urine Negative (Negative); Color Urine Yellow (Yellow); Glucose Urine UA Negative (Negative); Ketones Urine 2+ mg/dL (Negative); Leukocyte Esterase Ur 2+ LEU/UL (Negative); Mucus Urine Heavy /lpf; Nitrate Urine Negative (Negative); Protein Urine 2+ mg/dL (Negative); Specific Grav Ur 1.023 (1.001-1.035); Squamous Epithelial Cell Urine Many /hpf (Few); WBC Urine 51-75 /hpf
[2020-05-06] MEDS: VITAMIN A & D OINTMENT 60 GM TUBE 1 APPLIC TOPICAL (18:38)
--- NOTE | 2020-05-06 18:40 | PC.NURSE ---
Pt has history of hyperemesis with this . Pt states she has been doing better past couple of weeks but started vomiting this morning and wanted to get IV fluid before she is too dehyrated. Pt has IV in place and is getting IV fluid currently. Pt states she is already feeling better and would like to go home as soon as IV fluid is infused. Pt states she also had a headache and is currently taking FIORICET PRN. Pt took this AM but is unsure if she kept it down. Headache is rated as 3 currently.
--- NOTE | 2020-05-06 19:10 | PC.NURSE ---
Pt started to feel nausea again. Pt states she made herself vomit and now feels better. Would like to go home. Dr. Patel called with lab results.Will discharge home.
--- NOTE | 2020-05-07 15:28 | P.PNOB_ITS ---
OB - Triage/Final Diagnosis Visit Information Reason for evaluation: other (nausea and vomiting; headache) Comments/Additional reasons for admission: I have assessed the risk for this patient, Aisha Sorianouser, and determined that she would benefit from observation care. Evaluation Laboratory results: Laboratory Tests 05/06/20 18:05 Urine Color Yellow Urine Appearance Cloudy H Urine pH 7.0 Ur Specific [place] 1.023 Urine Protein 2+ H Urine Glucose (UA) Negative Urine Ketones 2+ H Ur Blood (Man) Negative Urine Nitrate Negative Urine Bilirubin Negative Urine Urobilinogen 2.0 H Leukocyte Esterase Rfl 2+ H Urine RBC 3-5 H Urine WBC 51-75 H Ur Squamous Epith Cells Many H Urine Bacteria Trace Urine Mucus Heavy H Vital signs: Vital Signs - 24 hr 05/06/20 17:04 05/06/20 17:05 Temperature 98.7 F Pulse Rate 77 Blood Pressure 107/64
[2020-05-10 06:49] LABS: Herpes Simplex Type 1 DNA PCR Not Detected (Not Detected); Herpes Simplex Type 2 DNA PCR Not Detected (Not Detected)
== END 2020-05-06 19:30 | disposition home or self-care (01) ==
PROVIDERS: Admitting Provider Obstetrics & Gynecology Gynecology; Visit Provider Obstetrics & Gynecology Gynecology
DX: O21.0 Mild hyperemesis gravidarum (principal); R51.9 Headache, unspecified; Z3A.19 19 weeks gestation of pregnancy
CPT/HCPCS: 36415; 81001; 87077; 87086; 87088; 87186; 87529; 96374; A9270; G0378; G0379; J2405; J7121

== ENCOUNTER 2020-05-07 22:32 | Observation (INO) | payer OTHER, SELFPAY ==
--- NOTE | 2020-05-07 18:35 | PC.NURSE ---
Pt states she has had nausea and vomiting all day. Pt has history of hyperemesis with this and has had multiple admission. Was here last evening also. Pt states vomiting started this AM. Pt states that her gender reveal alliance party is tomorrow and that she needs to be discharged by tomorrow morning. Pt is talkative on arrival. No vomiting currently. No pain.
--- NOTE | 2020-05-07 18:45 | PC.NURSE ---
Dr. Coello notified of pt arrival and assessment. Urine C/S results from admission last PM reported. Orders received.
[2020-05-07] MEDS: DEXTROSE 5%/LACTATED RINGERS 1,000 ML 999 ML IV CONT (19:10)
[2020-05-07 19:36] VITALS: BMI 19.6
[2020-05-07 19:46] LABS: Anion Gap 8 mmol/L (8-16); Blood Urea Nitrogen 5 mg/dL (7-17); Calcium 9.1 mg/dL (8.4-10.2); Carbon Dioxide 26 mmol/L (22-30); Chloride 103 mmol/L (98-107); Estimated CRCL calculation 137 ml/min; Estimated Glomerular Filt Rate > 60; Glucose 77 mg/dL (65-105); Potassium 2.9 mmol/L (3.4-5.0); Sodium 137 mmol/L (137-145)
[2020-05-07] MEDS: ceFAZolin 2 GM/D5W 50 ML 2 GM/50 ML BAG IVPB (20:06)
--- NOTE | 2020-05-07 20:15 | PC.NURSE ---
Dr. Coello notified of pt. K level 2.9, Will give Potassium. Pt states she will refuse IV potassium. States she wants to take by mouth. due to burning. Pt also states that her gender reveal constitution party is tomorrow and she wants to be discharged by 0800. Pt states she will leave against medical advise is she is not discharged before then.
[2020-05-07] MEDS: DEXTROSE 5%/LACTATED RINGERS 1,000 ML 200 ML IV CONT (21:11)
[2020-05-07] MEDS: ONDANSETRON INJ 4 MG/2 ML VIAL IV PUSH (21:12)
[2020-05-07 21:48] VITALS: TEMP 37.9
[2020-05-07] MEDS: POTASSIUM CHLORIDE 20 MEQ TABLET.ER PO (21:48)
[2020-05-07] MEDS: ACETAMINOPHEN 325 MG TABLET 650 MG PO (21:48)
[2020-05-07] MEDS: NITROFURANTOIN MONOHYD MACROCR 100 MG CAP PO (23:26)
[2020-05-07] MEDS: NICOTINE (*PBKC) 14 MG PATCH 1 PATCH TRANSDERM (23:27)
[2020-05-07 23:31] VITALS: BP 87/35; PULSE 74; TEMP 37.3
[2020-05-08] VITALS (7 sets, daily range): BP systolic 120–148; BP diastolic 74–124; PULSE 84–93; TEMP 36.4–36.9
--- NOTE | 2020-05-08 01:10 | PC.NURSE ---
Addendum entered by Marin Mckeon RN 05/08/20 01:11: TIME NOTE 05/07/20 4011 Original Note: Pt is smoker and requests a nicotine patch.
--- NOTE | 2020-05-08 01:51 | PC.NURSE ---
Addendum entered by Marin Mckeon RN 05/08/20 03:52: NOTE TIME 2129 Original Note: Pt states she would like to take a shower and make herself vomit Advised pt she needs to keep down potassium since she will not allow it to be given IV. PT put fingers in throat and vomited, stating she wants to vomit before KCL so that she wont vomit after. Discussed with pt that vomiting will cause her low potassium levels.
[2020-05-08] MEDS: POTASSIUM CHLORIDE 20 MEQ TABLET.ER PO ×4 (02:04→17:24)
--- NOTE | 2020-05-08 02:18 | PC.NURSE ---
Pt karen she is sleepy and will take a nap. Zofran given IV.
[2020-05-08] MEDS: DEXTROSE 5%/LACTATED RINGERS 1,000 ML 200 ML IV CONT ×2 (02:57→13:15)
[2020-05-08] MEDS: ONDANSETRON INJ 4 MG/2 ML VIAL IV PUSH ×3 (02:58→17:14)
--- NOTE | 2020-05-08 03:54 | PC.NURSE ---
PT has been sleeping quietly. No vomiting since taking Potassium. IV fluid infusing without difficulty.
--- NOTE | 2020-05-08 05:15 | PC.NURSE ---
Patient again noted to be putting finger down throat to induce vomiting. Pt states again that it makes her feel better. Expalined with pt the importance of not inducing vomiting due to concerns about electrolytes and low potassium. Pt again states she is leaving at 0800 for gender reveal constitution party regardless of potassium level.
--- NOTE | 2020-05-08 05:25 | PC.NURSE ---
Dr. Patel notified of pt continued vomiting. Orders for Phenergan IV. Pt has Compazine allergy but has taken Phenergan both at home and with previous admissions.
--- NOTE | 2020-05-08 05:31 | PC.NURSE ---
Documented blood pressures taken during pt vomiting.
[2020-05-08] MEDS: PROMETHAZINE HCL 25 MG/ML AMPUL 12.5 MG IV PUSH ×2 (05:40→13:19)
--- NOTE | 2020-05-08 05:54 | PC.NURSE ---
To room to give pt. Phenergan. Pt sates she would like IV discontinued. States IV is making her more nauseated. Phenergan given IVPP. Deep breathing exercise encouraged. Discussed IVF not making pt ill and also possible anxiety causing nausea this AM. PT agrees this could be anxiety also as she wants to go home. Pt states she is refusing IV fluid at this time. IVF discontinued.
[2020-05-08] MEDS: SALINE 0.65% NAS SOLN 44 ML BTL 1 SPRAY NASAL (06:42)
--- NOTE | 2020-05-08 08:07 | PC.NURSE ---
Dr. Patel returned page and informed when pt's nausea worsens, she drinks a larger amount and then gags herself to produce emesis which the pt states makes her feel better for awhile. Pt has been reminded that every time she throws up she is loosing electrolytes out of her stomach. OK to give Pepcid and Tums. informed BMP was just drawn.
[2020-05-08 08:17] LABS: Anion Gap 6 mmol/L (8-16); Calcium 8.7 mg/dL (8.4-10.2); Carbon Dioxide 25 mmol/L (22-30); Chloride 105 mmol/L (98-107); Estimated CRCL calculation 174 ml/min; Estimated Glomerular Filt Rate > 60; Glucose 93 mg/dL (65-105); Potassium 3.1 mmol/L (3.4-5.0); Sodium 136 mmol/L (137-145)
[2020-05-08] MEDS: CALCIUM CARBONATE (TUMS) 500 MG (200 MG ELEMENTAL) PO ×2 (08:26→17:11)
--- NOTE | 2020-05-08 08:27 | PC.NURSE ---
Pt c/o her throat burning when she chewed the Tums and swallowed it. Discussed with pt that when she has an emesis the acids in her stomach damage the lining of her throat and can eventually cause tissue damage and bleeding along with loss of electrolytes. Discussed a low potassium level can cause heart arrhythmias and even cardiac arrest when it is low enough.
[2020-05-08] MEDS: FAMOTIDINE 20 MG/2 ML VIAL IV PUSH (08:29)
--- NOTE | 2020-05-08 08:38 | PC.NURSE ---
Dr. Patel returned page and informed K+ is up to 3.1, pt requesting Ambien to help her sleep, and pt isn't going to be able to keep her oral Macrobid scheduled at 0900 down. Order received to switch to Ancef 2 gm q8hr and Vistaril IM according to pt preference.
[2020-05-08 08:50] LABS: Blood Urea Nitrogen < 2 mg/dL (7-17)
[2020-05-08] MEDS: ceFAZolin 2 GM/D5W 50 ML 2 GM/50 ML BAG IVPB ×2 (09:04→17:20)
[2020-05-08] MEDS: hydrOXYzine HCl 50 MG/ML VIAL IM (09:10)
--- NOTE | 2020-05-08 09:10 | PC.NURSE ---
Pt refused having BP checked or FHT's checked at this time.
--- NOTE | 2020-05-08 09:32 | PC.NURSE ---
Pt refusing to have an additional bag of IV fluids hung.
--- NOTE | 2020-05-08 11:39 | PC.NURSE ---
Dr. Patel in to see pt. Pt woke when Dr. Patel entered room. Pt didn't want to take her oral KCL, but Dr. Patel encouraged her to take it while she wasn't nauseated. Pt took the KCL with a sip of water and then stated she felt nauseated right away. I was feeling fine before you made me take that.
--- NOTE | 2020-05-08 11:42 | WPDOBADMIT ---
Obstetrics - Admit Note Admission Note: record reviewed. Pertinent additions to the history and/or any subsequent changes in the physical findings that are not consistent with the expected course of the were found. Additions to the history and/or subsequent changes in the physical findings follow. Patient returned with n/v and dehydration with low grade fever. Patient urine culture did show E.Coli sens. to ancef and macrobid. Given one dose of ancef last pm then changed to macrobid. N/v persisted so switched back to ancef. Given IV fluids but now refusing further fluids. Given IV zofran, phenergan, and pepcid as well as po tums. Patient K+ low but refused IV riders so given po tabs with some resistence. Patient continues to drink excessive water and make herself vomit when she feels nausea. Continued RN instructions to explain how this makes things worse and explain treatment plan. Patient did not sleep last night so requested sleeping med. Given IM hydroxizine and has been sleeping. Will see if she can eat once she wakes up.
--- NOTE | 2020-05-08 13:19 | PC.NURSE ---
Pt given Phenergan IV for return of nausea that pt made herself have emesis again- bile colored liquid. Pt instructed to call me if she wakes to void because Dr. Patel would like to repeat her UA and she will be due for another dose of KCL at 3:30 pm- verbalizes understanding.
--- NOTE | 2020-05-08 16:25 | PC.NURSE ---
Pt continues to sleep.
--- NOTE | 2020-05-08 17:11 | PC.NURSE ---
Pt awake and requesting to go home. States she isn't nauseated, she is just tossing and turning here now and she would prefer to do that at home. Pt declines trying to eat anything here. Pt will let me give her next dose of Ancef, Zofran, Tums, and KCL. Pt refusing to have FHT's assessed at this time.
[2020-05-08 17:55] LABS: Add Urine Microscopic? YES; Amorphous Sediment Urine Few; Appearance Urine Cloudy (Clear); Bacteria Urine 2+ /hpf; Bilirubin Urine Negative (Negative); Blood Urine Negative (Negative); Color Urine Yellow (Yellow); Glucose Urine UA Negative (Negative); Ketones Urine 2+ mg/dL (Negative); Leukocyte Esterase Ur Negative LEU/UL (Negative); Mucus Urine Heavy /lpf; Nitrate Urine Negative (Negative); Protein Urine 1+ mg/dL (Negative); Specific Grav Ur 1.015 (1.001-1.035); Squamous Epithelial Cell Urine Many /hpf (Few); Urobilinogen Urine Negative mg/dL (<2.0)
--- NOTE | 2020-05-08 18:02 | PC.NURSE ---
Dr. Hensley returned page and informed pt is awake now and requesting to go home. Pt did allow me to give her IV fluids while her 3rd dose of Ancef was infusing. She also had another dose of KCL, Zofran, and tums. Informed pt hasn't eaten, but insisting on going home. Orders for discharge received.
--- NOTE | 2020-05-08 18:03 | PC.NURSE ---
Pt refuses to have FHT's assessed prior to discharge.
--- NOTE | 2020-05-11 23:44 | P.PNOB_ITS ---
OB - Triage/Final Diagnosis Visit Information Comments/Additional reasons for admission: I have assessed the risk for this patient, Aisha Cuevas, and determined that she would benefit from observation care. Evaluation Laboratory results: Laboratory Tests 05/07/20 05/08/20 05/08/20 19:23 07:57 17:45 Sodium 137 136 L Potassium 2.9 L 3.1 L Chloride 103 105 Carbon Dioxide 26 25 Anion Gap 8 6 L BUN 5 L < 2 L Creatinine 0.40 L 0.30 L Estim Creat Clear Calc 137 174 Estimated GFR > 60 > 60 Glucose 77 93 Calcium 9.1 8.7 Urine Color Yellow Urine Appearance Cloudy H Urine pH 7.0 Ur Specific [place] 1.015 Urine Protein 1+ H Urine Glucose (UA) Negative Urine Ketones 2+ H Ur Blood (Man) Negative Urine Nitrate Negative Urine Bilirubin Negative Urine Urobilinogen Negative Leukocyte Esterase Rfl Negative Urine RBC 3-5 H Urine WBC 10-15 H Ur Squamous Epith Cells Many H Amorphous Sediment Few H Urine Bacteria 2+ H Hyaline Casts 3-4 H Urine Mucus Heavy H Final Diagnosis (1) Hyperemesis gravidarum: Code(s): O21.0 - Mild hyperemesis gravidarum Status: Acute (2) Hypokalemia: Code(s): E87.6 - Hypokalemia Status: Acute
== END 2020-05-08 18:37 | disposition home or self-care (01) ==
LOC: ANHOBPP 22:32
PROVIDERS: Admitting Provider Obstetrics & Gynecology Gynecology; Visit Provider Obstetrics & Gynecology Gynecology
DX: O21.0 Mild hyperemesis gravidarum (principal); E87.6 Hypokalemia; Z3A.20 20 weeks gestation of pregnancy
CPT/HCPCS: 36415; 80048; 81001; 87086; 96361; 96365; 96366; 96372; 96375; 96376; A9270; G0378; G0379; J0690; J2405; J2550; J3410; J7121

== ENCOUNTER 2020-05-09 08:09 | Outpatient (CLI) | payer OTHER, SELFPAY ==
--- NOTE | ~2020-05-09 | US_ITS ---
US OB /maternal detail DATE: 05/09/2020 09:23 INDICATION: anatomy screen TECHNIQUE: Real-time imaging and Doppler analysis COMPARISON: 02/13/2020 obstetrical ultrasound examination FINDINGS: Live bianchi intrauterine gestation, fetus in breech presentation, longitudinal lie. Anterior placenta, extending over the internal os. No cerebral ventriculomegaly. Normal cerebellum and nuchal fold. The spine appears normal. Diaphragm is intact. 4 chamber heart with heart rate of 141 bpm. The outflow tracts appea r normal. The kidneys appear normal without hydronephrosis. Fluid is demonstrated in the stomach and urinary bladder. extremities appear normal. Biparietal diameter 4.45 cm; 19 weeks 3 days estimated gestational age Head circumference 16.86 cm; 19 weeks 4 days Abdominal circumference 14.16 cm; 19 weeks 4 days Femur length 3.16 cm; 19 weeks 6 days Composite age by Hadlock formula is 19 weeks 4 days +/- 1 week 3 days with MARK ANTHONY of 09/29/2020, compared 09/24/2020 by LMP. Estimated weight by Hadlock formula is 304.5 +/- 45.7 g. Estimated weight-GP: 15.6% Head circumference/abdominal circumference 1.19, within normal range of 1.08, 101.26 Femur length/head circumference 18.76, within normal range of 16.50-19.16.. IMPRESSION: Low-lying placenta, extending over internal os; continued obstetrical ultrasound follow-u p is recommended Breech presentation Normal anatomy screen Composite age by Hadlock formula is 19 weeks 4 days +/- 1 week 3 days with MARK ANTHONY of 09/29/2020, compared 09/24/2020 by LMP. Estimated weight by Hadlock formula is 304.5 +/- 45.7 g. Estimated weight-GP: 15.6% Reviewed, dictated and finalized at [facility]. Reviewed, dictated and finalized at [facility]. IMPRESSION: Low-lying placenta, extending over internal os; continued obstetric al ultrasound follow-up is recommended Breech presentation Normal anatomy screen Composite age by Hadlock formula is 19 weeks 4 days +/- 1 week 3 days with MARK ANTHONY of 09/29/2020, compared 09/24/2020 by LMP. Estimated weight by Hadlock formula is 304.5 +/- 45.7 g. Estimated weight-GP: 15.6%
== END 2020-05-09 08:10 | disposition home or self-care (01) ==
PROVIDERS: Visit Provider Obstetrics & Gynecology Gynecology
DX: O44.42 Low lying placenta NOS or without hemorrhage, second trimester (principal); Z3A.19 19 weeks gestation of pregnancy; O32.1XX0 Maternal care for breech presentation, not applicable or unspecified
CPT/HCPCS: 76805

== ENCOUNTER 2020-05-09 14:37 | Observation (INO) | payer OTHER, SELFPAY ==
[2020-05-09] MEDS: PROMETHAZINE HCL 25 MG/ML AMPUL 12.5 MG IV PUSH ×2 (15:47→21:33)
[2020-05-09 16:07] LABS: Potassium 2.6 mmol/L (3.4-5.0)
[2020-05-09] MEDS: DEXTROSE 5%/LACTATED RINGERS 1,000 ML 150 ML IV CONT (16:52)
--- NOTE | 2020-05-09 16:56 | PC.NURSE ---
1445--Pt refuses belly band or monitoring at this time.
--- NOTE | 2020-05-09 17:04 | PC.NURSE ---
1700--Pt remains asleep.
--- NOTE | 2020-05-09 17:05 | PC.NURSE ---
1440--Pt presents to desk with c/o vomiting since this AM. Pt crawls into bed and remains in position.
--- NOTE | 2020-05-09 17:08 | OBADM ---
This patient, Aisha Cuevas, admitted to the OB room OB Post 115 for observation. Patient/family oriented to hospital policies and general routines including ID bracelet, bed and alarms, visiting hours, pain management, procedures, bathroom and other care routines, personal items, smoking policy, room service/diet, and visiting hours. Patient/Family are encouraged to report perceived risks to care and to ask questions if they do not understand what they are told or what they should do.
--- NOTE | 2020-05-09 17:28 | PC.NURSE ---
1515--Dr. Patel updated on pt. Orders received.
[2020-05-09 18:20] VITALS: BP 119/99; PULSE 99
[2020-05-09] MEDS: ONDANSETRON INJ 4 MG/2 ML VIAL IV PUSH (18:26)
[2020-05-09 18:29] VITALS: TEMP 37.4
--- NOTE | 2020-05-09 19:01 | WPDOBADMIT ---
Obstetrics - Admit Note Admission Note: record reviewed. No pertinent additions to the history and/or any subsequent changes in the physical findings that are not consistent with the expected course of the were found. Additions to the history and/or subsequent changes in the physical findings follow.Patient released last pm after refusing further care and sleeping. She returns today with same complaints of N/V and dehydration. K+ 2.6. Agrees to K riders today. Will hydrate and give antiemetics and see if she will remain until able to eat and drink again.
[2020-05-09] MEDS: hydrOXYzine HCL 25 MG TABLET PO (20:16)
[2020-05-09] MEDS: hydrOXYzine HCl 50 MG/ML VIAL IM (21:17)
[2020-05-09 21:24] VITALS: BP 137/93; PULSE 80
[2020-05-10] MEDS: DEXTROSE 5%/LACTATED RINGERS 1,000 ML 150 ML IV CONT (01:47)
--- NOTE | 2020-05-10 06:37 | PC.NURSE ---
At 0622 Aisha demanded to be unhooked so she could go outside and smoke. She returned inside at 0624. RN observed her at 0630 hovering over the toilet dry heaving. She request a shower.
--- NOTE | 2020-05-10 07:22 | PC.NURSE ---
0686 Dr. Patel notified of Patient demanding to go outside. Nicotine patch will be offered. Order received to draw potassium at 0830.
--- NOTE | 2020-05-10 07:25 | PC.NURSE ---
0762 Dr. Patel notified of patient being upset because she wants a pitcher of water to drink. RN walked into the patient room and found her hovering over the toilet for a second time. This time patient was gagging herself. Discussed with patient to drink small amounts of ice chips/water for awhile and hold off on drinking a pitcher of water. Patient states I'm drinking the water out of the faucet anyway .
--- NOTE | 2020-05-10 07:29 | PC.NURSE ---
0716 Patient has been given ice chips and two 8oz cups of ice water. Patient is upset that it isn't a pitcher of water and request to sign out AMA.
--- NOTE | 2020-05-10 07:30 | PC.NURSE ---
0721 - RN arrived in patient room and found that the patient had removed her IV. Bandaid was applied. Patient signed AMA papers. Dr. Patel was aware of her request at 0717.
--- NOTE | 2020-05-10 07:39 | PC.NURSE ---
0630 - Patient was offered a nicotine patch and she refused. Pt is preparing for a shower.
--- NOTE | 2020-05-10 08:07 | PM.OBPNVD ---
OB - PN: Subj Subjective Date/time seen: 05/10/20 08:07 Patient chose to leave A when she was not given a full pitcher of water. OB - PN: Obj Data Labs CBC & Chem 7: 05/09/20 15:45 Labs: Laboratory Results - last 24 hr 05/09/20 15:45 Potassium 2.6 L* OB - PN A/P Time Spent With Patient Time: Total time spent is greater than 50% in coordination of care (as documented) at patient's floor/unit and/or counseling patient:
== END 2020-05-10 07:21 | disposition left against medical advice (07) ==
PROVIDERS: Admitting Provider Obstetrics & Gynecology Gynecology; Visit Provider Obstetrics & Gynecology Gynecology
DX: O21.0 Mild hyperemesis gravidarum (principal); O99.282 Endocrine, nutritional and metabolic diseases complicating pregnancy, second trimester; E86.0 Dehydration; Z3A.20 20 weeks gestation of pregnancy
CPT/HCPCS: 36415; 76805; 84132; 96365; 96366; 96372; 96375; 96376; A9270; G0378; G0379; J2405; J2550; J3410; J3480; J7121

== ENCOUNTER 2020-05-10 17:46 | Inpatient (IN) | payer OTHER, SELFPAY ==
--- NOTE | 2020-05-10 18:07 | PC.NURSE ---
1753- called,informed pt came back in this evening after leaving AMA this morning for getting upset with and the nurse for not giving her a pitcher of water . Orders received.
[2020-05-10 18:30] VITALS: BMI 19.8
[2020-05-10] MEDS: ONDANSETRON INJ 4 MG/2 ML VIAL IV PUSH (19:02)
[2020-05-10 19:09] LABS: Alanine Aminotransferase 20 U/L (4-35); Alkaline Phosphatase 50 U/L (38-126); Anion Gap 5 mmol/L (8-16); Aspartate Amino Transferase 38 U/L (14-36); Bilirubin,Total 0.4 mg/dL (0.2-1.3); Blood Urea Nitrogen 3 mg/dL (7-17); Carbon Dioxide 30 mmol/L (22-30); Chloride 100 mmol/L (98-107); Estimated Glomerular Filt Rate > 60; Glucose 79 mg/dL (65-105); Potassium 2.6 mmol/L (3.4-5.0); Sodium 135 mmol/L (137-145)
[2020-05-10 19:21] LABS: Add Urine Microscopic? YES; Appearance Urine Cloudy (Clear); Bacteria Urine Trace /hpf; Bilirubin Urine Negative (Negative); Blood Urine Negative (Negative); Color Urine Amber (Yellow); Glucose Urine UA Negative (Negative); Ketones Urine 1+ mg/dL (Negative); Leukocyte Esterase Ur Negative LEU/UL (Negative); Mucus Urine Heavy /lpf; Nitrate Urine Negative (Negative); Protein Urine 2+ mg/dL (Negative); RBC Urine 0-2 /hpf (0-2); Specific Grav Ur 1.015 (1.001-1.035); Squamous Epithelial Cell Urine Many /hpf (Few); Transitional Epi Cells Urine Rare /hpf (None Seen)
--- NOTE | 2020-05-10 19:59 | PC.NURSE ---
1950 Juliet BAPTISTE called back to page. Updated her on pt current Potassium level. Orders for K rider and continue D5 LR Fluids at 150 ml/hr.
[2020-05-10] MEDS: FAMOTIDINE 20 MG/2 ML VIAL IV PUSH (21:20)
--- NOTE | 2020-05-10 23:16 | PC.NURSE ---
2135 paged [phone] paged [phone] Juliet BAPTISTE responded to page. Updated her on pt status. ok with FHR being doppled once per shift. Labs repeat in AM. No other orders.
[2020-05-11] VITALS (9 sets, daily range): BP systolic 89–119; BP diastolic 44–73; PULSE 62–80; TEMP 36.2–37.1; O2SAT 99
[2020-05-11] MEDS: DEXTROSE 5%/LACTATED RINGERS 1,000 ML 150 ML IV CONT ×3 (00:26→20:52)
--- NOTE | 2020-05-11 01:20 | PC.NURSE ---
Addendum entered by Marin Mckeon RN 05/12/20 08:22: TIME NOTE 05-12-20 at 0120 Original Note: heart tones 140/ Pt awake asked for poscicle. No other complaints at this time. Lab drawn.
[2020-05-11 05:43] LABS: Alanine Aminotransferase 19 U/L (4-35); Albumin Level 2.9 g/dL (3.5-5.1); Alkaline Phosphatase 39 U/L (38-126); Anion Gap 3 mmol/L (8-16); Aspartate Amino Transferase 32 U/L (14-36); Bilirubin,Total 0.3 mg/dL (0.2-1.3); Blood Urea Nitrogen 2 mg/dL (7-17); Calcium 8.2 mg/dL (8.4-10.2); Carbon Dioxide 29 mmol/L (22-30); Chloride 104 mmol/L (98-107); Estimated CRCL calculation 137 ml/min; Estimated Glomerular Filt Rate > 60; Glucose 86 mg/dL (65-105); Potassium 2.8 mmol/L (3.4-5.0); Sodium 136 mmol/L (137-145)
--- NOTE | 2020-05-11 06:00 | PC.NURSE ---
[id number] paged [phone] responded to page. updated on pt potassium level. Orders for Potassium. also confirmed orders for NPO diet.
--- NOTE | 2020-05-11 08:12 | WPDOBADMIT ---
Obstetrics - Admit Note Admission Note: record reviewed. No pertinent additions to the history and/or any subsequent changes in the physical findings that are not consistent with the expected course of the were found. Additions to the history and/or subsequent changes in the physical findings follow. Patient readmitted overnight with same complaint of n/v and K+ remains low. Discussed with patient need to rest GI system and to remain admitted until K+ is normalized and back to eating without vomiting. Patient tearful and unhappy with recommendations but agrees to try. Will give zofran, phenergan, and pepcid on schedule. Continue NPO for now.
[2020-05-11] MEDS: FAMOTIDINE 20 MG/2 ML VIAL IV PUSH ×2 (08:40→20:30)
[2020-05-11] MEDS: ONDANSETRON INJ 4 MG/2 ML VIAL IV PUSH ×3 (08:40→20:30)
--- NOTE | 2020-05-11 08:53 | PC.NURSE ---
0800- at bedside discussing POC with patient. Agreed to allow pt to go outside one a day. Pt informed she is NPO until further notice.
--- NOTE | 2020-05-11 08:54 | PC.NURSE ---
0815-Pt picking at IV site,instructed not to play with IV b/c she has limited IV access and needs K-riders. Encouraged to ask family to bring DVD's or books up for pt to be distracted with.
[2020-05-11] MEDS: PROMETHAZINE HCL 25 MG/ML AMPUL 12.5 MG IV PUSH ×3 (11:40→23:48)
--- NOTE | 2020-05-11 13:09 | PC.NURSE ---
1305-Pt walked outside to smoke, informed she is liable for herself while off the unit. Pt states she will be more likely to stay and receive treatment if she can go outside once a shift.
--- NOTE | 2020-05-11 13:10 | PC.NURSE ---
1245- given update on pt, orders received to allow pt to have a popsicle and if she tolerates that an hour later she can have 4oz of sprite and a piece of toast. Pt is allowed ice chips at this time.
--- NOTE | 2020-05-11 17:37 | PC.NURSE ---
Pt's boyfriend is here visiting. Pt seems more upbeat and willing to talk about her care and staying for treatment. Pt had stated within the last hour that she was leaving AMA tonight after she ate some toast and the K rider was done. Discussed with pt the effects of low potassium and the importance of receiving treatment.
--- NOTE | 2020-05-11 19:18 | PC.NURSE ---
Addendum entered by Melina Cardenas RN 05/11/20 19:20: Error-wrong time. called at 3006. Original Note: 0657 Jorge BAPTISTE updated on pt status. Stated ok for pt to eat mashed potatoes and then chicken in an hr if able to keep food down. No new orders.
[2020-05-11] MEDS: NICOTINE (*PBKC) 14 MG PATCH 1 PATCH TRANSDERM (20:32)
[2020-05-11] MEDS: hydrOXYzine HCl 50 MG/ML VIAL IM (20:34)
--- NOTE | 2020-05-11 20:55 | PC.NURSE ---
1939 pt complains of increase nausea/vomiting. Pt given Zofran.
--- NOTE | 2020-05-11 23:40 | PC.NURSE ---
Pt has been sleeping quietly and voiced no complaints. Phenergan given as ordered and pt. did not wake.
[2020-05-12 01:30] VITALS: TEMP 36.9
[2020-05-12 01:35] VITALS: BP 109/38; PULSE 71; TEMP 36.8
[2020-05-12 02:33] LABS: Potassium 3.2 mmol/L (3.4-5.0)
[2020-05-12] MEDS: ONDANSETRON INJ 4 MG/2 ML VIAL IV PUSH ×4 (03:04→20:37)
[2020-05-12] MEDS: DEXTROSE 5%/LACTATED RINGERS 1,000 ML 150 ML IV CONT ×2 (03:34→06:40)
[2020-05-12] MEDS: PROMETHAZINE HCL 25 MG/ML AMPUL 12.5 MG IV PUSH ×3 (05:25→23:30)
[2020-05-12] MEDS: FAMOTIDINE 20 MG/2 ML VIAL IV PUSH ×2 (08:38→20:37)
--- NOTE | 2020-05-12 09:00 | PC.NURSE ---
Pt continues to sleep.
[2020-05-12 09:58] VITALS: BP 116/72; PULSE 83; RESP 16; TEMP 37
--- NOTE | 2020-05-12 10:34 | PC.NURSE ---
Dr. Patel returned page and informed pt slept until about 1000 this morning when she left the room to go smoke and is in the shower now. Pt did drink OJ this morning. Discussed K+ level of 3.2 from 0130 this morning and pt c/o headache. Orders received.
--- NOTE | 2020-05-12 16:43 | PM.OBPNVD ---
OB - PN: Subj Subjective Date/time seen: 05/12/20 16:43 patient sleeping reports feeling better. OB - PN: Obj Data Labs CBC & Chem 7: 05/12/20 01:28 Labs: Laboratory Results - last 24 hr 05/12/20 01:28 Potassium 3.2 L OB - PN A/P Assessment and Plan (1) Hypokalemia: Code(s): E87.6 - Hypokalemia Status: Acute Assessment and Plan: s/p potassum replacement recheck level in am (2) Hyperemesis gravidarum: Code(s): O21.0 - Mild hyperemesis gravidarum Status: Acute Assessment and Plan: continue with meds and bland diet. Time Spent With Patient Time: Total time spent is greater than 50% in coordination of care (as documented) at patient's floor/unit and/or counseling patient: Exam Narrative: Exam Narrative: abdomen soft nontender
--- NOTE | 2020-05-12 17:03 | PC.NURSE ---
Noftified Dr Patel that pt had disconnected her IV and got in shower states she is nauseated wants to go outside to smoke. Tried flushing IV site and it won't work.
[2020-05-12] MEDS: PROMETHAZINE HCL 25 MG/ML AMPUL IM (17:10)
--- NOTE | 2020-05-12 17:16 | PC.NURSE ---
1700 D/C Iv could not flush
--- NOTE | 2020-05-12 17:48 | PC.NURSE ---
1700--Pt states she does not want to keep this baby, does not want to be anymore and wants this baby out of her. Pt is crying and states the same again.
--- NOTE | 2020-05-12 18:20 | PC.NURSE ---
Pt sitting in shower and not wanting to come out.
--- NOTE | 2020-05-12 18:29 | PC.NURSE ---
Pt was sitting in bed vomiting with finger in throat causing the vomiting
[2020-05-12] MEDS: DEXTROSE 5%/LACTATED RINGERS 1,000 ML 50 ML IV CONT (20:36)
[2020-05-13] MEDS: hydrOXYzine HCl 50 MG/ML VIAL IM (00:23)
[2020-05-13] MEDS: ONDANSETRON INJ 4 MG/2 ML VIAL IV PUSH ×4 (02:07→23:03)
[2020-05-13] MEDS: DEXTROSE 5%/LACTATED RINGERS 1,000 ML 150 ML IV CONT (03:32)
[2020-05-13 04:51] VITALS: BP 143/88; PULSE 81
[2020-05-13 05:00] VITALS: TEMP 37.2
[2020-05-13] MEDS: PROMETHAZINE HCL 25 MG/ML AMPUL 12.5 MG IV PUSH ×2 (05:05→19:40)
[2020-05-13 05:18] LABS: Potassium 3.1 mmol/L (3.4-5.0)
[2020-05-13 07:36] VITALS: BP 127/84; PULSE 93
--- NOTE | 2020-05-13 07:48 | PM.OBPNVD ---
OB - PN: Subj Subjective Date/time seen: 05/13/20 07:48 feels better but still not tolerating po intake OB - PN: Obj Data Labs CBC & Chem 7: 05/13/20 04:50 Labs: Laboratory Results - last 24 hr 05/13/20 04:50 Potassium 3.1 L OB - PN A/P Assessment and Plan (1) Hyperemesis gravidarum: Code(s): O21.0 - Mild hyperemesis gravidarum Status: Acute Assessment and Plan: Continue IV hydration and meds so advance diet (2) Hypokalemia: Code(s): E87.6 - Hypokalemia Status: Acute Assessment and Plan: add K+ to IV fluids Time Spent With Patient Time: Total time spent is greater than 50% in coordination of care (as documented) at patient's floor/unit and/or counseling patient: Exam GI: GI Palp: Yes Soft to palpation and Yes Other GI palpation findings present (+FHTs)
[2020-05-13 08:00] VITALS: TEMP 37
--- NOTE | 2020-05-13 09:00 | PC.NURSE ---
Patient requesting a pitcher of water, patient encouraged to take it slow.
[2020-05-13] MEDS: KCL 40 MEQ/D5 1/2NS 1,000 ML 150 ML IV CONT ×2 (09:15→16:44)
[2020-05-13] MEDS: FAMOTIDINE 20 MG/2 ML VIAL IV PUSH ×2 (09:50→21:07)
--- NOTE | 2020-05-13 10:15 | PC.NURSE ---
Patient again requesting to shower. States that it makes her feel better. Patient up to shower, bed linens changed at this time.
--- NOTE | 2020-05-13 16:30 | PC.NURSE ---
Patient states that she vomited a few minutes ago.
[2020-05-13] MEDS: NICOTINE (*PBKC) 14 MG PATCH 1 PATCH TRANSDERM (16:44)
[2020-05-13 16:46] VITALS: BP 117/60; PULSE 62
--- NOTE | 2020-05-13 18:00 | PC.NURSE ---
Patient states that she is less nauseated today, patient encouraged to try something bland to eat, states that she is not hungry and doesn't want to push it. Tolerated 2 OJ's and two popsicles today.
--- NOTE | 2020-05-13 18:24 | PC.NURSE ---
Pt is in the shower.
[2020-05-13 19:09] VITALS: BMI 18.8
--- NOTE | 2020-05-13 19:15 | PC.NURSE ---
Patient out of shower. IVF reconnected. Pt states she is feeling better this evening. Declines any food.
--- NOTE | 2020-05-13 21:00 | PC.NURSE ---
Pt states nausea is better today but still has episodes of nausea with desire to induce vomiting to make her feel better. 2x2 with small amount of peppermint oil placed near patient and pt states it gave her relief from nausea quickly. No vomiting this evening. IV infusing without difficulty.
[2020-05-13 21:13] VITALS: BP 125/85; PULSE 83
--- NOTE | 2020-05-13 22:30 | PC.NURSE ---
Pt called out stating her back was hurting. Request to take shower. Pt in shower currently.
--- NOTE | 2020-05-13 23:10 | PC.NURSE ---
Dr. Patel notified of pt complaint of back pain. Pt requests IV Tylenol. Orders received. Will do automotive service technician consult and start Amino acid IV. K pad to back.
[2020-05-14] MEDS: PROMETHAZINE HCL 25 MG/ML AMPUL 12.5 MG IV PUSH (01:41)
--- NOTE | 2020-05-14 02:30 | PC.NURSE ---
Pt sleeping at this time. No nausea or vomiting. K pad to low back. IV infusing without difficulty.
[2020-05-14] MEDS: AMINO ACIDS 4.25%/D5W/LYTES/CA 2,000 ML 80 ML IV CONT (02:33)
[2020-05-14] MEDS: ONDANSETRON INJ 4 MG/2 ML VIAL IV PUSH ×2 (04:31→11:56)
--- NOTE | 2020-05-14 04:45 | PC.NURSE ---
Update to Dr. Patel per phone.
--- NOTE | 2020-05-14 04:56 | PC.NURSE ---
Pt awake and stating she is nauseated. Wants to shower. IV paused for pt to shower.
--- NOTE | 2020-05-14 05:00 | PC.NURSE ---
Attempt blood draw x2 without success. Pt states she is going out to smoke. IVF amino acids disconnected.
[2020-05-14 07:02] LABS: Basophils Percent Auto 0.2 % (0.2-1.2); Eosinophils Absolute Auto 0.1 K/mm3 (0-0.3); Eosinophils Percent Auto 0.5 % (0-4.4); Hematocrit 29.7 % (37.0-47.0); Hemoglobin 10.3 g/dL (12.0-15.0); Immature Granulocyte Absolute 0.05 K/mm3 (0.00-0.031); Immature Granulocyte Percent A 0.5 % (0-0.5); Lymphocytes Absolute Auto 2.13 K/mm3 (0.9-3.2); Lymphocytes Percent Auto 20.4 % (18.3-44.2); Mean Corpuscular HGB Conc 34.7 g/dl (32-36); Mean Corpuscular Hemoglobin 32.3 pg (26-34); Mean Corpuscular Volume 93.1 fl (80-100); Mean Platelet Volume 11.2 fl (7.4-10.4); Monocytes Absolute Auto 0.9 K/mm3 (0.1-0.6); Monocytes Percent Auto 8.3 % (2.6-8.5); Neutrophils Absolute Auto 7.3 K/mm3 (1.3-6.7); Neutrophils Percent Auto 70.1 % (45.5-73.1); Platelet Count Result 263 k/mm3 (150-375); Red Blood Count 3.19 M/mm3 (4.2-5.4); Red Cell Distribution Width 12.5 % (11.5-14.5); White Blood Count 10.5 K/mm3 (4.5-10.0)
[2020-05-14 07:14] LABS: Alanine Aminotransferase 17 U/L (4-35); Albumin Level 3.9 g/dL (3.5-5.1); Alkaline Phosphatase 61 U/L (38-126); Anion Gap 7 mmol/L (8-16); Aspartate Amino Transferase 21 U/L (14-36); Bilirubin,Total 0.6 mg/dL (0.2-1.3); Blood Urea Nitrogen 4 mg/dL (7-17); Calcium 8.9 mg/dL (8.4-10.2); Carbon Dioxide 24 mmol/L (22-30); Chloride 101 mmol/L (98-107); Estimated CRCL calculation 131 ml/min; Estimated Glomerular Filt Rate > 60; Glucose 88 mg/dL (65-105); Magnesium 1.6 mg/dL (1.6-2.3); Potassium 3.5 mmol/L (3.4-5.0); Sodium 132 mmol/L (137-145)
--- NOTE | 2020-05-14 08:03 | PC.NURSE ---
IV infiltrated. Patient requesting a pass while her IV is out so she can go and smoke some weed and see if that makes her nausea better.
[2020-05-14 08:18] VITALS: BP 110/62; PULSE 68
[2020-05-14 08:30] VITALS: TEMP 36.9
--- NOTE | 2020-05-14 08:45 | PC.NURSE ---
Patient ate an apple
--- NOTE | 2020-05-14 09:14 | PC.NURSE ---
Patient up to shower.
--- NOTE | 2020-05-14 10:34 | PC.NURSE ---
Dr Patel here to see patient, plan of care discussed.
--- NOTE | 2020-05-14 10:34 | PM.OBPNVD ---
OB - PN: Subj Subjective Date/time seen: 05/14/20 10:34 Kept apple in this am. No vomiting for 12 hours OB - PN: Obj Data Labs CBC & Chem 7: 05/14/20 05:25 05/14/20 05:25 Labs: Laboratory Results - last 24 hr 05/14/20 05/14/20 05:25 05:25 WBC 10.5 H RBC 3.19 L Hgb 10.3 L D Hct 29.7 L MCV 93.1 MCH 32.3 MCHC 34.7 RDW 12.5 Plt Count 263 MPV 11.2 H Immature Gran % (Auto) 0.5 Neut % (Auto) 70.1 Lymph % (Auto) 20.4 Patrick % (Auto) 8.3 Eos % (Auto) 0.5 Baso % (Auto) 0.2 Lymph # (Auto) 2.13 Patrick # (Auto) 0.9 H Eos # (Auto) 0.1 Baso # (Auto) 0.0 Abs Immat Gran (auto) 0.05 H Absolute Neuts (auto) 7.3 H Absolute Nucleated RBC 0.0 Nucleated RBC % 0.0 Sodium 132 L Potassium 3.5 Chloride 101 Carbon Dioxide 24 Anion Gap 7 L BUN 4 L Creatinine 0.40 L Estim Creat Clear Calc 131 Estimated GFR > 60 Glucose 88 Calcium 8.9 Magnesium 1.6 Total Bilirubin 0.6 AST 21 ALT 17 Alkaline Phosphatase 61 Total Protein 7.0 Albumin 3.9 OB - PN A/P Assessment and Plan (1) Hypokalemia: Code(s): E87.6 - Hypokalemia Status: Acute Assessment and Plan: labs ok today (2) Hyperemesis gravidarum: Code(s): O21.0 - Mild hyperemesis gravidarum Status: Acute Assessment and Plan: Continue procalamine. Continue meds. Plan q 2 hour snacks and if tolerates, dc tomorrow. Discussed possible feeding tube with patient. Time Spent With Patient Time: Total time spent is greater than 50% in coordination of care (as documented) at patient's floor/unit and/or counseling patient: Exam Narrative: Exam Narrative: appears better today Const: General: comfortable; No acute distress GI: GI Palp: No abdominal tenderness and Yes Other GI palpation findings present (+FHTs)
--- NOTE | 2020-05-14 13:18 | PC.NURSE ---
Dr Patel notified that patient wants to go home. Order for discharge received. Discuss discharge plan with patient regarding medications and nutrition plan.
--- NOTE | 2020-05-14 14:58 | PC.NURSE ---
Patient just finished showering and shaving. States that she feels great. Patient has been snacking on fruit loops over the last several hours and has kept them down. Patient is wishing to go home now if possible. Dr Patel paged.
--- NOTE | 2020-05-21 00:08 | PM.DS ---
DS: Admitting Diagnosis Admitting Diagnosis Admitting Diagnosis: hyperemesis with hypokalemia DS: Discharge Diagnosis Discharge Diagnosis (1) Hypokalemia: Code(s): E87.6 - Hypokalemia Status: Acute (2) Hyperemesis gravidarum: Code(s): O21.0 - Mild hyperemesis gravidarum Status: Acute DS: Summary Hospital Course Hospital Course: Patient admitted for management of hyperemesis and hypokalemia Patient IV hydrated and K+ replaced. Antiemetics given and bowel rested for several days. PO intake minimal but nausea minimal at time of discharge. Recommended to stay until evening but patient requested to leave after morning snack. K+ normal at dc Status at Discharge Functional status at discharge: independent ambulation Overall status at discharge: other (improved) Time Spent with Patient Time attestation: Total time spent providing and/or coordinating discharge services: Discharge Plan Discharge Attending physician on discharge: Divya Patel Discharging Clinician: Divya Patel Patient Disposition: Home, Self-Care Activity: as tolerated Diet: as tolerated Discharge Instructions: OB ANTEPARTUM DISCHARGE INSTRUCTIONS This information is given to help you properly care for yourself at home after your discharge from the hospital. Follow these instructions until your doctor tells you otherwise. DIET: Eat Three Well Balanced Meals per Day Additional Diet Instructions: ACTIVITY: As Tolerated Additional Activity Instructions: RETURN TO LABOR AND DELIVERY IF YOU HAVE: Any Change In Baby's Normal Movement Pattern Any Leakage of Fluid More than 6 Contractions in an Hour Vaginal Bleeding Additional Reasons to Return to Labor and Delivery: Contractions may feel like abdominal pain, tightening, cramping, pressure, back ache, or thigh ache. FOLLOW-UP CARE: Keep Next Scheduled Appointment To see in/on Valuables released to patient or family? N/A Medications from home returned to patient? N/A I Acknowledge Receipt of and Understand the Above Instructions IF YOU HAVE ANY QUESTIONS REGARDING THESE INSTRUCTIONS, PLEASE CALL [phone]. IF PROBLEMS ARISE, CALL YOUR PROVIDER. IF EMERGENCY CARE IS NEEDED, [facility] EMERGENCY ROOM IS AVAILABLE 24 HOURS A DAY. Stand Alone Forms: General Discharge Information Follow-up/Referrals: Divya Patel MD [Physician] - Discharge Medications: Continued ondansetron 4 mg Tablet,Disintegrating 4 mg PO Q6H Qty: 30 RF: 0 acetaminophen [Mapap (acetaminophen)] 325 mg Tablet 1,000 mg PO Q6H PRN (Reason: Headache) Qty: 0 RF: 0 qmufkrppbn-gekrumefomkcb-hmiy [Fioricet] 50-300-40 mg Capsule 1 cap PO Q4H PRN (Reason: Pain Rated 4-6) RF: 0 calcium carbonate 500 mg calcium (1,250 mg) Tablet,Chewable 200 mg PO Q6H PRN (Reason: Indigestion) RF: 0 potassium chloride 20 mEq Tablet,Er Particles/Crystals 20 meq PO DAILY Qty: 30 RF: 0 Discontinued vits A and D-white pet-lanolin Ointment 1 applic topical PRN PRN (Reason: Burning or Discomfort) RF: 0 Date of admission: 05/12/20 15:48 Primary Care Provider: UNKNOWN,DOCTOR Admitting Provider: Cornell Chung Attending physician on admission: Divay Patel Condition: Stable
== END 2020-05-14 13:45 | disposition home or self-care (01) | DRG 566 ==
PROVIDERS: Admitting Provider Obstetrics & Gynecology; Visit Provider Obstetrics & Gynecology Gynecology
DX: O21.0 Mild hyperemesis gravidarum (principal); O99.282 Endocrine, nutritional and metabolic diseases complicating pregnancy, second trimester; E87.6 Hypokalemia; Z3A.20 20 weeks gestation of pregnancy
CPT/HCPCS: 36415; 80053; 81001; 83735; 84132; 85025; A9270; J0131; J2405; J2550; J3410; J3480; J7121

== ENCOUNTER 2020-05-29 01:24 | Observation (INO) | payer OTHER, SELFPAY ==
[2020-05-28] MEDS: ONDANSETRON HCL ODT 4 MG TABLET PO (19:24)
[2020-05-28 19:45] LABS: Add Urine Microscopic? YES; Appearance Urine Cloudy (Clear); Bacteria Urine 1+ /hpf; Bilirubin Urine Negative (Negative); Blood Urine Negative (Negative); Color Urine Amber (Yellow); Glucose Urine UA Negative (Negative); Ketones Urine 2+ mg/dL (Negative); Leukocyte Esterase Ur 1+ LEU/UL (NEGATIVE); Mucus Urine Moderate /lpf; Nitrate Urine Positive (Negative); Protein Urine 2+ mg/dL (Negative); Specific Grav Ur 1.021 (1.001-1.035); Squamous Epithelial Cell Urine Many /hpf (Few); WBC Urine 31-50 /hpf (0-3)
[2020-05-28 20:17] LABS: Alanine Aminotransferase 17 U/L (4-35); Albumin Level 3.7 g/dL (3.5-5.1); Alkaline Phosphatase 52 U/L (38-126); Anion Gap 6 mmol/L (8-16); Aspartate Amino Transferase 22 U/L (14-36); Bilirubin,Total 0.3 mg/dL (0.2-1.3); Blood Urea Nitrogen 6 mg/dL (7-17); Calcium 8.6 mg/dL (8.4-10.2); Carbon Dioxide 26 mmol/L (22-30); Chloride 102 mmol/L (98-107); Estimated Glomerular Filt Rate > 60; Glucose 70 mg/dL (65-105); Potassium 3.3 mmol/L (3.4-5.0); Sodium 134 mmol/L (137-145)
--- NOTE | 2020-05-28 20:30 | PC.NURSE ---
pt presents to L&D w history of hyperemesis and is c/o n/v over the past two days. pt reports pt started vomiting the night of 05/26/20, which happened once in the evening after pt ate dinner. pt states pt vomited about 5 times on 05/27 and 3-4 times on 05/28. pt states pt is not currently nauseous upon arrival though pt states pt wanted to come in before it got worse . pt states pt has been taking nausea medication as prescribed. pt states pt has only had oral fluid intake, no solids since the evening of 05/26. pt states pt has been drinking sweet tea, soda and bryan d . pt states n/v is intermittent and increases when pt tries to eat.
[2020-05-28] MEDS: DEXTROSE 5%/LACTATED RINGERS 1,000 ML 999 ML IV CONT (21:26)
[2020-05-28] MEDS: CALCIUM CARBONATE (TUMS) 500 MG (200 MG ELEMENTAL) PO (22:17)
--- NOTE | 2020-06-07 09:33 | P.HP_ITS ---
H&P: HPI History of Present Illness Date/Time: Patient is a 25 y/o primip @ 24 weeks admitted for persistent nausea and hypokalemia 2nd to hyperemesis gravidarium and forced vomitting.. Patient reports was doing well over the weekend and went on a float trip and woke up the next morning with vomiting and nausea and abdominal pain. She also reports a loose stool x1. Chief Complaint: nausea and vomitting Review of Systems Gastrointestinal: Gastrointestinal: Reports belching, Reports change in bowel habits and Reports GI cramping PMFSH Past Medical History Medical History Asthma Constipation Elevated liver enzymes resolved was from prior admit Hypokalemia Surgical History Surgical History History of tympanostomy Family History Family History Father Alive and well Mother Alive and well Social History Social History Smoking packs per day: 0.5 Smoking cigarettes per day: 10.0 Years smoked: 10 Smoking pack-years: 5.00 Smoking status: Current some day smoker Tobacco type: cigarettes and e-cigarettes/vaping Second hand tobacco smoke exposure: Yes Additional smoking assessment comments: HAS BEEN SMOKING PUFF BAR SINCE NOVEMBER 2019 Alcohol intake: former Substance use: current Substance use type: marijuana Other substance usage details: OCCASIONAL MARIJUANA Gender identity (if verbalized by the patient): Female Spiritual care concerns: No Meds Home Medications and Allergies Home Medications Medication Instructions Recorded Confirmed Type ondansetron 4 mg PO Q6H #30 tablet 02/26/20 06/02/20 Rx acetaminophen [Mapap 1,000 mg PO Q6H PRN #0 tablet 04/27/20 06/02/20 Rx (acetaminophen)] gpevanlafm-rvghwdernwsru-zmxk 1 cap PO Q4H PRN cap 05/06/20 06/02/20 Rx [Fioricet] calcium carbonate 200 mg PO Q6H PRN tablet 05/08/20 06/02/20 Rx potassium chloride 20 meq PO DAILY #30 tablet 06/02/20 06/02/20 Rx Allergies Allergy/AdvReac Type Severity Reaction Status Date / Time diphenhydramine Allergy Palpitation Verified 06/02/20 17:48 [From Benadryl] s metoclopramide AdvReac Unknown Anxiety Verified 06/02/20 17:48 prochlorperazine AdvReac Unknown Anxiety Verified 06/02/20 17:48 Exam Const: General: alert and awake Nutritional Appearance: thin O rientation/consciousness: oriented to person and oriented to place GI: GI Palp: Yes Soft to palpation Percussion: Yes other (nontender) : OB/external & speculum: Deferred OB/external & speculum exam Assessment and Plan Assessment and plan (1) Hypokalemia: Code(s): E87.6 - Hypokalemia Status: Acute Assessment and Plan: replaced potassium in IV fluids. (2) Hyperemesis gravidarum: Code(s): O21.0 - Mild hyperemesis gravidarum Status: Acute Assessment and Plan: replaced potassium with in IV. tolerated well. reviewed diet and medications with patient in detail. small frequent meals. BRAT diet. potassium supplements. Fluid hydrations. Plan d/c home this am. when tolerating regular diet.
== END 2020-05-29 01:30 | disposition home or self-care (01) ==
LOC: ANHOBPP 01:28
PROVIDERS: Obstetrics & Gynecology; Admitting Provider Obstetrics & Gynecology Gynecology; Visit Provider Obstetrics & Gynecology Gynecology
DX: O21.0 Mild hyperemesis gravidarum (principal); O99.332 Smoking (tobacco) complicating pregnancy, second trimester; F17.210 Nicotine dependence, cigarettes, uncomplicated; Z3A.23 23 weeks gestation of pregnancy; E87.6 Hypokalemia
CPT/HCPCS: 36415; 80053; 81001; 87077; 87086; 87088; 87186; 96360; 96361; A9270; G0378; G0379; J7121

== ENCOUNTER 2020-06-02 16:25 | Observation (INO) | payer OTHER, SELFPAY ==
--- NOTE | 2020-06-02 16:30 | PC.NURSE ---
Patient presented to OB unit with complaints and nausea and emesis since 06/01/2020 at 2130. Patient states she has tried taking zofran at home and it has not resolved symptoms. Patient reports history of hyperemesis with current .
[2020-06-02 16:40] VITALS: BP 121/71; PULSE 99
--- NOTE | 2020-06-02 16:44 | PC.NURSE ---
Dr. Patel notified of patient arrival to OB unit. Admission orders received.
[2020-06-02] MEDS: DEXTROSE 5%/LACTATED RINGERS 1,000 ML 250 ML IV CONT (17:13)
[2020-06-02] MEDS: ONDANSETRON INJ 4 MG/2 ML VIAL IV PUSH (17:13)
[2020-06-02 17:21] VITALS: BMI 20.9
[2020-06-02 17:30] LABS: Add Urine Microscopic? YES; Appearance Urine Cloudy (Clear); Bacteria Urine 1+ /hpf; Bilirubin Urine Negative (Negative); Color Urine Amber (Yellow); Glucose Urine UA Negative (Negative); Ketones Urine 2+ mg/dL (Negative); Leukocyte Esterase Ur Trace LEU/UL (Negative); Mucus Urine Heavy /lpf; Nitrate Urine Negative (Negative); Protein Urine 2+ mg/dL (Negative); Specific Grav Ur 1.017 (1.001-1.035); Squamous Epithelial Cell Urine Many /hpf (Few); Urobilinogen Urine Negative mg/dL (<2.0); WBC Urine 31-50 /hpf
[2020-06-02 17:31] LABS: Alanine Aminotransferase 10 U/L (4-35); Albumin Level 3.8 g/dL (3.5-5.1); Alkaline Phosphatase 56 U/L (38-126); Anion Gap 4 mmol/L (8-16); Aspartate Amino Transferase 17 U/L (14-36); Bilirubin,Total 0.3 mg/dL (0.2-1.3); Blood Urea Nitrogen 4 mg/dL (7-17); Calcium 8.7 mg/dL (8.4-10.2); Carbon Dioxide 26 mmol/L (22-30); Chloride 104 mmol/L (98-107); Estimated CRCL calculation 140 ml/min; Estimated Glomerular Filt Rate > 60; Glucose 78 mg/dL (65-105); Potassium 3.1 mmol/L (3.4-5.0); Sodium 134 mmol/L (137-145)
[2020-06-02 17:37] LABS: Blood Urine Negative (Negative)
--- NOTE | 2020-06-02 18:20 | PC.NURSE ---
Pt states she is feeling much better and would like to go home as soon as possible. States she wants to leave before second bag is infused. Up to bathroom and then pt went out to smoke.
--- NOTE | 2020-06-02 18:35 | PC.NURSE ---
UPdate to Dr. Chung. Lab reported. Pt may go at 2100 if she is feeling better. Pt advised. Pt states she wants to take a shower before restarting IVF.
--- NOTE | 2020-06-02 18:50 | PC.NURSE ---
Out of shower and IVF restarted.
[2020-06-02 20:02] VITALS: BP 85/43; PULSE 87
[2020-06-02 20:03] VITALS: BP 99/46; PULSE 85
--- NOTE | 2020-06-02 22:20 | PC.NURSE ---
Pt called out stating she wants to go home. States she feels much better. NO further vomiting.
--- NOTE | 2020-06-21 08:36 | PM.OBTRLD ---
OB - Triage/Final Diagnosis Visit Information Reason for evaluation: other (hyperemesis) Comments/Additional reasons for admission: I have assessed the risk for this patient, Aisha Cuevas, and determined that she would benefit from observation care. Evaluation Laboratory results: Laboratory Tests 06/02/20 06/02/20 17:12 17:12 Sodium 134 L Potassium 3.1 L Chloride 104 Carbon Dioxide 26 Anion Gap 4 L BUN 4 L Creatinine 0.40 L Estim Creat Clear Calc 140 Estimated GFR > 60 Glucose 78 Calcium 8.7 Total Bilirubin 0.3 AST 17 ALT 10 Alkaline Phosphatase 56 Total Protein 7.0 Albumin 3.8 Urine Color Paula Urine Appearance Cloudy H Urine pH 7.0 Ur Specific [place] 1.017 Urine Protein 2+ H Urine Glucose (UA) Negative Urine Ketones 2+ H Ur Blood (Man) Negative Urine Nitrate Negative Urine Bilirubin Negative Urine Urobilinogen Negative Leukocyte Esterase Rfl Trace H Urine RBC 3-5 H Urine WBC 31-50 H Ur Squamous Epith Cells Many H Urine Bacteria 1+ H Urine Mucus Heavy H
== END 2020-06-02 21:55 | disposition home or self-care (01) ==
PROVIDERS: Admitting Provider Obstetrics & Gynecology Gynecology; Visit Provider Obstetrics & Gynecology Gynecology
DX: O21.2 Late vomiting of pregnancy (principal); Z3A.23 23 weeks gestation of pregnancy
CPT/HCPCS: 36415; 80053; 81001; 87077; 87086; 87088; 87186; 96374; G0378; G0379; J2405; J7121

== ENCOUNTER 2020-06-03 03:04 | Observation (INO) | payer OTHER, SELFPAY ==
[2020-06-03 03:20] VITALS: TEMP 36.4
[2020-06-03] MEDS: ONDANSETRON INJ 4 MG/2 ML VIAL IV PUSH ×3 (03:49→15:56)
[2020-06-03] MEDS: FAMOTIDINE 20 MG/2 ML VIAL IV PUSH (03:49)
[2020-06-03] MEDS: DEXTROSE 5%/LACTATED RINGERS 1,000 ML 200 ML IV CONT ×3 (03:49→13:40)
[2020-06-03 04:06] VITALS: BP 133/90; PULSE 80
[2020-06-03] MEDS: hydrOXYzine HCl 50 MG/ML VIAL 25 MG IM (04:06)
--- NOTE | 2020-06-03 04:45 | PC.NURSE ---
pt arrived on unit complaining of vomiting/dry heaving since she left the hospital. Pt tried eating a popsicle around 2300 and has been throwing up since. pt has also tried to take sips of water but stated she has kept nothing down. Pt went to bathroom immediately in her room and vomited in trash can. emesis unable to be measured. [id number] paged [phone] responded to page. MD updated of pt arrival. Orders for IV fluids, zofran, and pepcid. No other orders at this time. [id number] paged [phone] responded to page. Told MD that pt requests Vistiril IM for anxiety. stated ok to give 25mg Vistiril at this time and can repeat in one hour if needed. No new orders.
[2020-06-03 05:28] VITALS: BMI 20.9
--- NOTE | 2020-06-03 07:42 | WPDOBADMIT ---
Obstetrics - Admit Note Admission Note: record reviewed. No pertinent additions to the history and/or any subsequent changes in the physical findings that are not consistent with the expected course of the were found. Additions to the history and/or subsequent changes in the physical findings follow. Patient at 23 6/7 wks here overnight with recurrent n/v. Patient with hyperemesis gravidarium throughout . Patient came to L&D yesterday around 5 pm and left after IV hydration around 10 pm. Returned through night with n/v. IV hydrated overnight and kept NPO. Will advance diet and observe fundus soft, nt, +FHts
--- NOTE | 2020-06-03 11:35 | PC.NURSE ---
1100-Pt is sleeping on her side and declines water or ice chips at this time.
[2020-06-03 12:58] VITALS: BP 121/75; PULSE 94; TEMP 36.8
--- NOTE | 2020-06-03 13:04 | PC.NURSE ---
Pt refused to allow me to doppler heart tones, pt is walking outside to see how she feels
--- NOTE | 2020-06-03 13:45 | PC.NURSE ---
1315-Pt is in the shower.
--- NOTE | 2020-06-03 13:45 | PC.NURSE ---
Pt back in bed on hooked up to IVF's, pt has drank an apple juice and water and kept it down. Cheerios at bedside, pt declines wanting to order toast
[2020-06-03] MEDS: CALCIUM CARBONATE (TUMS) 500 MG (200 MG ELEMENTAL) PO (18:40)
== END 2020-06-03 19:10 | disposition home or self-care (01) ==
PROVIDERS: Admitting Provider Obstetrics & Gynecology; Visit Provider Obstetrics & Gynecology Gynecology
DX: O21.0 Mild hyperemesis gravidarum (principal); Z3A.23 23 weeks gestation of pregnancy
CPT/HCPCS: 96361; 96372; 96374; 96375; 96376; A9270; G0378; G0379; J2405; J3410; J7121

== ENCOUNTER 2020-06-06 14:08 | Observation (INO) | payer OTHER, SELFPAY ==
[2020-06-06] MEDS: ONDANSETRON INJ 4 MG/2 ML VIAL IV PUSH (14:57)
[2020-06-06] MEDS: FAMOTIDINE 20 MG/2 ML VIAL IV PUSH (14:58)
[2020-06-06] MEDS: LACTATED RINGERS 1,000 ML 125 ML IV CONT (14:59)
[2020-06-06 15:10] VITALS: BP 106/60; PULSE 73; TEMP 36.9
[2020-06-06 15:25] LABS: Basophils Percent Auto 0.1 % (0.2-1.2); Eosinophils Percent Auto 0.1 % (0-4.4); Hematocrit 30.3 % (37.0-47.0); Hemoglobin 10.3 g/dL (12.0-15.0); Immature Granulocyte Absolute 0.05 K/mm3 (0.00-0.031); Immature Granulocyte Percent A 0.4 % (0-0.5); Lymphocytes Absolute Auto 1.59 K/mm3 (0.9-3.2); Lymphocytes Percent Auto 11.5 % (18.3-44.2); Mean Corpuscular Hemoglobin 32.4 pg (26-34); Mean Corpuscular Volume 95.3 fl (80-100); Mean Platelet Volume 11.7 fl (7.4-10.4); Monocytes Absolute Auto 0.7 K/mm3 (0.1-0.6); Neutrophils Absolute Auto 11.5 K/mm3 (1.3-6.7); Neutrophils Percent Auto 82.9 % (45.5-73.1); Platelet Count Result 320 k/mm3 (150-375); Red Blood Count 3.18 M/mm3 (4.2-5.4); Red Cell Distribution Width 12.4 % (11.5-14.5); White Blood Count 13.9 K/mm3 (4.5-10.0)
[2020-06-06 15:35] LABS: Alanine Aminotransferase 16 U/L (4-35); Albumin Level 4.1 g/dL (3.5-5.1); Alkaline Phosphatase 79 U/L (38-126); Anion Gap 5 mmol/L (8-16); Aspartate Amino Transferase 22 U/L (14-36); Bilirubin,Total 0.1 mg/dL (0.2-1.3); Blood Urea Nitrogen 4 mg/dL (7-17); Carbon Dioxide 30 mmol/L (22-30); Chloride 101 mmol/L (98-107); Estimated Glomerular Filt Rate > 60; Glucose 85 mg/dL (65-105); Potassium 2.9 mmol/L (3.4-5.0); Sodium 136 mmol/L (137-145)
[2020-06-06 15:38] VITALS: BMI 20.5
[2020-06-06] MEDS: POTASSIUM CHLORIDE INJ 40 MEQ in DEXTROSE 5%/LACTATED RINGERS 1,000 ML 200 ML IV CONT ×2 (16:33→21:37)
[2020-06-06] MEDS: hydrOXYzine HCl 50 MG/ML VIAL IM (16:35)
[2020-06-06 21:36] VITALS: BP 114/61; PULSE 77; RESP 15; TEMP 37.2
--- NOTE | 2020-06-06 21:36 | PC.NURSE ---
pt refused for RN to get FHT at this time. Pt stated, she has not had sleep in many hours and just wants to sleep. RN will try again later.
--- NOTE | 2020-06-06 23:21 | PC.NURSE ---
pt refused NST at this time only allowing RN to get FHT at this time. Pt stated, can't you do this in the morning? RN will attempt NST in the morning.
[2020-06-07] MEDS: POTASSIUM CHLORIDE INJ 40 MEQ in DEXTROSE 5%/LACTATED RINGERS 1,000 ML 200 ML IV CONT (02:31)
[2020-06-07] MEDS: ONDANSETRON INJ 4 MG/2 ML VIAL IV PUSH ×2 (02:57→08:59)
--- NOTE | 2020-06-07 03:10 | PC.NURSE ---
pt requesting to shower. Pt instructed to notify her nurse when shes done so her IV fluids can be hooked back up.
[2020-06-07 05:18] VITALS: BP 109/52; PULSE 81
[2020-06-07 05:42] LABS: Potassium 3.7 mmol/L (3.4-5.0)
[2020-06-07 05:53] VITALS: BP 109/52
[2020-06-07 08:24] VITALS: BP 121/79; PULSE 80; TEMP 36.9
[2020-06-07] MEDS: FAMOTIDINE 20 MG/2 ML VIAL IV PUSH (08:59)
--- NOTE | 2020-06-14 08:27 | P.PNOB_ITS ---
OB - Triage/Final Diagnosis Visit Information Comments/Additional reasons for admission: I have assessed the risk for this patient, Aisha Cuevas, and determined that she would benefit from observation care. Evaluation Laboratory results: Laboratory Tests 06/06/20 06/06/20 06/07/20 14:54 14:54 05:22 WBC 13.9 H RBC 3.18 L Hgb 10.3 L Hct 30.3 L MCV 95.3 MCH 32.4 MCHC 34.0 RDW 12.4 Plt Count 320 MPV 11.7 H Immature Gran % (Auto) 0.4 Neut % (Auto) 82.9 H Lymph % (Auto) 11.5 L Barton % (Auto) 5.0 Eos % (Auto) 0.1 Baso % (Auto) 0.1 L Lymph # (Auto) 1.59 Barton # (Auto) 0.7 H Eos # (Auto) 0.0 Baso # (Auto) 0.0 Abs Immat Gran (auto) 0.05 H Absolute Neuts (auto) 11.5 H Absolute Nucleated RBC 0.0 Nucleated RBC % 0.0 Sodium 136 L Potassium 2.9 L 3.7 Chloride 101 Carbon Dioxide 30 Anion Gap 5 L BUN 4 L Creatinine 0.40 L Estim Creat Clear Calc Not Reportable Estimated GFR > 60 Glucose 85 Calcium 9.0 Total Bilirubin 0.1 L AST 22 ALT 16 Alkaline Phosphatase 79 Total Protein 7.0 Albumin 4.1 Final Diagnosis (1) Hypokalemia: Code(s): E87.6 - Hypokalemia Status: Acute (2) Hyperemesis gravidarum: Code(s): O21.0 - Mild hyperemesis gravidarum Status: Acute (3) Chronic nausea: Code(s): R11.0 - Nausea Status: Acute
== END 2020-06-07 10:25 | disposition home or self-care (01) ==
PROVIDERS: Admitting Provider Obstetrics & Gynecology; Visit Provider Obstetrics & Gynecology
DX: O21.0 Mild hyperemesis gravidarum (principal); Z3A.24 24 weeks gestation of pregnancy; E87.6 Hypokalemia
CPT/HCPCS: 36415; 59025; 80053; 84132; 85025; 96361; 96365; 96366; 96372; 96375; 96376; G0378; G0379; J2405; J3410; J3480; J7120; J7121

== ENCOUNTER 2020-06-08 14:08 | Observation (INO) | payer OTHER, SELFPAY ==
--- NOTE | ~2020-06-08 | US_ITS ---
EXAMINATION: US OB limited EXAM DATE: 06/09/2020 08:19 INDICATION: placenta check, hx low lying placenta. 2nd trimester. TECHNIQUE: Pelvic obstetrical transabdominal sonogram was performed by a technologist. There are mu ltiple grayscale and Doppler images available for interpretation. Comparison is made to prior examina tion from 05/09/2020. FINDINGS: There is a single fetus identified in breech presentation with a heart rate of 141 beats pe r minute. The placenta is located in the anterior position. Placental margin to internal cervical os distance is 4.6 cm. There is no sonographic evidence of retroplacental hemorrhage identified. IMPRESSION: 1. Single fetus in breech presentation with heart rate 141 beats per minute. 2. Placenta anteriorly located. Reviewed, dictated and finalized at location B.
[2020-06-08] MEDS: DEXTROSE 5%/LACTATED RINGERS 1,000 ML 125 ML IV CONT ×2 (14:46→15:38)
[2020-06-08] MEDS: ONDANSETRON INJ 4 MG/2 ML VIAL IV PUSH ×2 (14:47→20:45)
[2020-06-08] MEDS: FAMOTIDINE 20 MG/2 ML VIAL IV PUSH (14:48)
[2020-06-08 15:03] LABS: Anion Gap 8 mmol/L (8-16); Blood Urea Nitrogen 3 mg/dL (7-17); Calcium 9.2 mg/dL (8.4-10.2); Carbon Dioxide 23 mmol/L (22-30); Chloride 101 mmol/L (98-107); Estimated Glomerular Filt Rate > 60; Glucose 87 mg/dL (65-105); Potassium 3.3 mmol/L (3.4-5.0); Sodium 132 mmol/L (137-145)
[2020-06-08 15:12] VITALS: BP 102/56; PULSE 73
--- NOTE | 2020-06-08 15:15 | PC.NURSE ---
Unable to obtain continuous FHT r/t movement. FHT doppled intermittent in 140's.
[2020-06-08 15:21] VITALS: BMI 20.5
--- NOTE | 2020-06-08 15:45 | PC.NURSE ---
Patient found to be sleeping comfortably without complaint.
[2020-06-08] MEDS: hydrOXYzine HCl 50 MG/ML VIAL 25 MG IM ×2 (16:45→23:53)
[2020-06-08] MEDS: POTASSIUM CHLORIDE INJ 40 MEQ in DEXTROSE 5%/LACTATED RINGERS 1,000 ML 125 MEQ IV CONT (17:33)
[2020-06-08 19:03] VITALS: BP 118/60; PULSE 84
--- NOTE | 2020-06-08 20:16 | PC.NURSE ---
Addendum entered by Marin Mckeon RN 06/08/20 20:32: NOTE time should be 1905. Original Note: Pt has been sleeping. Awake to use bathroom and requests warm blankets. Pt states nausea has improved with rest. Pt states the Vistaril has helped with her anxiety. Discussed her anxiety. Pt states she does feel that her anxiety is on of the causes for her nausea. Pt states she is prescribed Clonipen but does not take as since and also pt states she does not like taking medication due to her mothers addiction history. Encouraged pt to discuss these issues with MD also. Pt states she would like ice chips. Pt states she did go in bathroom to drink water.
--- NOTE | 2020-06-08 20:58 | PC.NURSE ---
2044 - Upon entering the room, the pt was sleeping. Pt states she has no pain, no nausea, and no complaints at this time. Pt refuses to wear pt arm band. Pt name and date of verified. Pt willing to have Zofran IV, but refuses to take the Zoloft and Buspar that was ordered by .
--- NOTE | 2020-06-08 22:35 | PC.NURSE ---
1945 - pt refusing NST at this time.
--- NOTE | 2020-06-08 22:36 | PC.NURSE ---
2045 - pt refusing NST at this time.
[2020-06-08 23:16] VITALS: BP 147/93; PULSE 79
--- NOTE | 2020-06-08 23:18 | PC.NURSE ---
2317 - pt called out via call light. Upon entering the room, the pt is sitting up requesting to take a shower. BP obtained, IV saline locked; pt refusing to have IV site covered to protect site in the shower. Pt educated on IV site care.
[2020-06-09 00:24] VITALS: BP 102/53; PULSE 63
[2020-06-09] MEDS: POTASSIUM CHLORIDE INJ 40 MEQ in DEXTROSE 5%/LACTATED RINGERS 1,000 ML 125 MEQ IV CONT ×2 (01:30→11:06)
[2020-06-09] MEDS: ONDANSETRON INJ 4 MG/2 ML VIAL IV PUSH ×4 (02:51→21:12)
[2020-06-09] MEDS: FAMOTIDINE 20 MG/2 ML VIAL IV PUSH ×2 (02:55→14:44)
--- NOTE | 2020-06-09 03:10 | PC.NURSE ---
0305 - pt refusing to have BP taken.
[2020-06-09 03:17] LABS: Add Urine Microscopic? YES; Appearance Urine Clear (Clear); Bacteria Urine Trace /hpf; Bilirubin Urine Negative (Negative); Blood Urine Negative (Negative); Color Urine Straw (Yellow); Glucose Urine UA Negative (Negative); Ketones Urine Trace mg/dL (Negative); Leukocyte Esterase Ur Negative LEU/UL (Negative); Mucus Urine Rare /lpf; Nitrate Urine Negative (Negative); Protein Urine Negative (Negative); RBC Urine 0-2 /hpf (0-2); Specific Grav Ur 1.006 (1.001-1.035); Squamous Epithelial Cell Urine Few /hpf (Few); Urobilinogen Urine Negative mg/dL (<2.0)
--- NOTE | 2020-06-09 03:56 | PC.NURSE ---
0340 - Pt called out asking to get in the shower. MARIA M Ingram saline locked IV, pt up to the shower.
--- NOTE | 2020-06-09 03:57 | PC.NURSE ---
0350 - pt called out via emergency cord in shower; requesting toothbrush and toothpaste and a heating pad. All items taken to pt room.
--- NOTE | 2020-06-09 03:58 | PC.NURSE ---
06/08/2020 2320 - pt in shower.
[2020-06-09 04:18] VITALS: BP 133/79; PULSE 78
--- NOTE | 2020-06-09 04:20 | PC.NURSE ---
Pt states she has pain in buttocks below where Vistaril was given. States area did not hurt after injection but had started to hurt now. No redness or swelling noted to area. Moves leg and ambulates without difficulty.
[2020-06-09 08:37] VITALS: BP 129/83; PULSE 68
[2020-06-09 09:08] LABS: Anion Gap 4 mmol/L (8-16); Calcium 8.6 mg/dL (8.4-10.2); Carbon Dioxide 27 mmol/L (22-30); Chloride 102 mmol/L (98-107); Estimated CRCL calculation 140 ml/min; Estimated Glomerular Filt Rate > 60; Glucose 82 mg/dL (65-105); Potassium 3.3 mmol/L (3.4-5.0); Sodium 133 mmol/L (137-145)
[2020-06-09] MEDS: SERTRALINE HCL 50 MG TABLET PO (09:38)
[2020-06-09] MEDS: busPIRone HCL 5 MG TABLET PO (09:38)
[2020-06-09 09:55] LABS: Blood Urea Nitrogen < 2 mg/dL (7-17)
--- NOTE | 2020-06-09 11:22 | PCCCNOTE ---
Care Coordination. Pt. referred to Care Coordination for resources to move out from mother and possible counseling information. Pt. reports she lives with her boyfriend/FOB not her mother. She denies any issues at home and that she has higher anxiety while here because she feels cooped up. She would like to see if doctor can give her something to help her sleep, but she reports doctor is starting anxiety medications. Pt. reports being setup with WIC. Provided pt. counseling and housing resources. Pt. denies any substance use and reports having good family support. Pt. reports nausea/vomiting is what brings her in. She denies any resource information.
[2020-06-09] MEDS: hydrOXYzine HCl 50 MG/ML VIAL 25 MG IM (14:50)
--- NOTE | 2020-06-09 15:00 | PC.NURSE ---
Discussed plan of care with pt. Pt had requested a nicotine patch and also wanted more vistaril. Pt wants to sleep through the nausea. Discussed plan with Dr. Chung. Dr. Chung would like her to stop getting IM vistaril. Discussed final dose of IM vistaril with pt, will take PO. Pt will notify RN if she is ready for her nicotine patch.
--- NOTE | 2020-06-09 16:00 | PC.NURSE ---
Discussing plan of care with pt. Pt will not eat while she is here. States she has to go home and smoke weed to be able to eat. Instructed that it is not ideal to be smoking weed or cigarettes while or as we do not know [facility] effects on the baby.
[2020-06-09 17:42] VITALS: BP 131/76; PULSE 77
--- NOTE | 2020-06-09 18:03 | PM.IMHP ---
H&P: HPI History of Present Illness Date/Time: 06/09/20 18:03 Patient is a primip at 24 weeks presents due to returning chronic nausea and vomiting.Patient admitted multiple times for hypokalemia due to self induced vomitting. She also reports recent contact with brother who had diarrhea over the weekend. Patient states felt fine after leaving for two days. reports was eating at home and denies any weight loss. Patient reports also movement. Chief Complaint: nausea and vomiting Review of Systems Review of Systems: Narrative: diarrhea, Constitutional: Constitutional: Reports weakness PMFSH Past Medical History Medical History (Updated 06/09/20 @ 18:07 by Cornell Chung MD) Anxiety Asthma Constipation Elevated liver enzymes resolved was from prior admit Hypokalemia Surgical History Surgical History History of tympanostomy Family History Family History Father Alive and well Mother Alive and well Social History Social History Smoking packs per day: 0.5 Smoking cigarettes per day: 10.0 Years smoked: 10 Smoking pack-years: 5.00 Smoking status: Current some day smoker Tobacco type: cigarettes and e-cigarettes/vaping Second hand tobacco smoke exposure: Yes Additional smoking assessment comments: HAS BEEN SMOKING PUFF BAR SINCE NOVEMBER 2019 Alcohol intake: former Substance use: current Substance use type: marijuana Other substance usage details: OCCASIONAL MARIJUANA Gender identity (if verbalized by the patient): Female Spiritual care concerns: No Meds Home Medications and Allergies Home Medications Medication Instructions Recorded Confirmed Type ondansetron 4 mg PO Q6H #30 tablet 02/26/20 06/08/20 Rx acetaminophen [Mapap 1,000 mg PO Q6H PRN #0 tablet 04/27/20 06/08/20 Rx (acetaminophen)] oosqcjckfh-[id number]-siua 1 cap PO Q4H PRN cap 05/06/20 06/08/20 Rx [Fioricet] calcium carbonate 200 mg PO Q6H PRN tablet 05/08/20 06/08/20 Rx potassium chloride 20 meq PO DAILY #30 tablet 06/02/20 06/08/20 Rx Allergies Allergy/AdvReac Type Severity Reaction Status Date / Time diphenhydramine Allergy Palpitation Verified 06/08/20 15:23 [From Benadryl] s metoclopramide AdvReac Unknown Anxiety Verified 06/08/20 15:23 prochlorperazine AdvReac Unknown Anxiety Verified 06/08/20 15:23 Vital Signs Vital Signs - 24 hr 06/08/20 19:03 06/08/20 23:16 06/09/20 00:24 Pulse Rate 84 79 63 Blood Pressure 118/60 147/93 H 102/53 L 06/09/20 04:18 06/09/20 08:37 06/09/20 17:42 Pulse Rate 78 68 77 Blood Pressure 133/79 129/83 131/76 Exam Resp: Auscultation: clear to auscultation bilaterally GI: GI Palp: Yes Soft to palpation Other: soft palpable uterus at umbilicus H&P: Results Labs Labs: [facility] 06/09/20 08:30 Sodium 133 L Potassium 3.3 L Chloride 102 Carbon Dioxide 27 BUN < 2 L Creatinine 0.40 L Glucose 82 Calcium 8.6 Urine 06/09/20 Range/Units 03:03 Urine Color Straw (Yellow) Urine Appearance Clear (Clear) Urine pH 8.0 (5.0-9.0) Ur Specific [employer] 1.006 (1.001-1.035) Urine Protein Negative (Negative) mg/dL Urine Glucose (UA) Negative (Negative) mg/dL Assessment and Plan Assessment and plan (1) Hypokalemia: Code(s): E87.6 - Hypokalemia Status: Acute Assessment and Plan: continue with potassium with iv fluids. (2) Hyperemesis gravidarum: Code(s): O21.0 - Mild hyperemesis gravidarum Status: Acute Assessment and Plan: continue with zofran scheduled. FWB reassuring low lying placenta resolved. (3) Anxiety: Code(s): F41.9 - Anxiety disorder, unspecified Status: Acute Assessment and Plan: patient declines use of zoloft and buspar. Agrees to use atarax.
--- NOTE | 2020-06-09 18:42 | PC.NURSE ---
Patient is sleeping quietly. Left undisturbed at this time.,
--- NOTE | 2020-06-09 19:30 | PC.NURSE ---
Patient went out to smoke. Back to room and complained of nausea and need to vomit. Pt states she induced vomiting and still feels nauseated. Pt in bathroom taking shower at this time. Discussed PO Vistaril and pt states she will not take until after shower.
[2020-06-09] MEDS: hydrOXYzine HCL 25 MG TABLET PO (20:08)
--- NOTE | 2020-06-09 20:15 | PC.NURSE ---
Pt states she is nauseated. Vistaril given PO encouraged pt not to vomit. Emesis x1 prior to shower. Pt states she just wants to sleep. Lights out and pt resting now.
[2020-06-09 22:54] VITALS: BP 150/97; PULSE 100
[2020-06-09 22:59] VITALS: BP 148/98; PULSE 91
--- NOTE | 2020-06-09 23:00 | PC.NURSE ---
Pt went out to smoke and is now in shower. Pt BP noted was after smoking. Pt states her nausea is worse tonight. States vomiting is the only thing that helps. Encouraged pt not to induce vomiting. Pt noted to be inducing vomiting when taking clean gown to bathroom. Pt refused 2100 Buspar dose. Pt also refused NST.
--- NOTE | 2020-06-09 23:30 | PC.NURSE ---
Pt remains in shower. Sitting on floor of shower. IV continues to infuse. Pt states she is still nauseated and this is only way is will not vomit.
--- NOTE | 2020-06-10 00:10 | PC.NURSE ---
Pt remains in shower. Pt states she was out briefly and went back in for nausea. Encouraged pt to get out and take Vistaril for nausea.Pt states she will be unable to keep it down at this time. Unable to check repeat blood pressure due to pt in shower.
--- NOTE | 2020-06-10 01:16 | PC.NURSE ---
Pt remains in shower. Advised pt to notify RN as soon as she is out. Offered pt Vistaril PO and pt states it will not help. Yaa due at 0300.
[2020-06-10] MEDS: CALCIUM CARBONATE (TUMS) 500 MG (200 MG ELEMENTAL) PO (02:59)
[2020-06-10] MEDS: ONDANSETRON INJ 4 MG/2 ML VIAL IV PUSH ×2 (03:04→09:16)
[2020-06-10] MEDS: FAMOTIDINE 20 MG/2 ML VIAL IV PUSH (03:05)
[2020-06-10 03:14] VITALS: BP 122/78; PULSE 76
[2020-06-10] MEDS: hydrOXYzine HCl 50 MG/ML VIAL 25 MG IM (03:15)
--- NOTE | 2020-06-10 05:57 | PC.NURSE ---
Addendum entered by Marin Mckeon RN 06/10/20 06:05: TIME FOR NOTE 0320 Original Note: Pt has been mostly in shower since 2300. Pt has refused to come out of shower have blood pressure checked or heart tones. Pt states shower is only place she is not nauseated. Pt does not did not want Vistaril PO. When out of shower at 0215 Requests MD be called for alternative medication for nasuea. Cool pack given per request. Dr. Chung notified and order for Vistaril IM. to be given. Pt stated she was feeling better within 2-3 minutes of getting meds. Discussed pt induced vomiting. Pt denies hx of bulemia. Pt continues to admit to anxiety. States she has talked to many counselors and does not and will not talk to one as she does not like to talk to strangers.
[2020-06-10 06:15] LABS: Anion Gap 4 mmol/L (8-16); Calcium 9.5 mg/dL (8.4-10.2); Carbon Dioxide 26 mmol/L (22-30); Chloride 101 mmol/L (98-107); Estimated CRCL calculation 136 ml/min; Estimated Glomerular Filt Rate > 60; Glucose 101 mg/dL (65-105); Sodium 131 mmol/L (137-145)
[2020-06-10 06:18] LABS: Blood Urea Nitrogen < 2 mg/dL (7-17)
--- NOTE | 2020-06-10 08:23 | PC.NURSE ---
Dr. Chung at bedside discussing plan of care with pt. New orders received to discharge pt home after she eats breakfast.
--- NOTE | 2020-06-10 08:26 | PC.NURSE ---
Pt in the shower
--- NOTE | 2020-06-10 09:19 | PC.NURSE ---
pt refused monitoring.
--- NOTE | 2020-06-10 11:30 | PC.NURSE ---
pt refused monitoring, pt stated she I don't want to stay any longer, I just want to go home .
== END 2020-06-10 11:35 | disposition home or self-care (01) ==
PROVIDERS: Admitting Provider Obstetrics & Gynecology; Visit Provider Obstetrics & Gynecology
DX: O21.0 Mild hyperemesis gravidarum (principal); O99.332 Smoking (tobacco) complicating pregnancy, second trimester; F17.210 Nicotine dependence, cigarettes, uncomplicated; O99.342 Other mental disorders complicating pregnancy, second trimester; F41.9 Anxiety disorder, unspecified; Z3A.24 24 weeks gestation of pregnancy; E87.6 Hypokalemia
CPT/HCPCS: 36415; 76815; 80048; 81001; 96361; 96365; 96366; 96368; 96372; 96374; 96375; 96376; A9270; G0378; G0379; J0131; J2405; J3410; J3480; J7121

== ENCOUNTER 2020-06-12 06:42 | Observation (INO) | payer OTHER, SELFPAY ==
[2020-06-12] MEDS: POTASSIUM CHLORIDE INJ 40 MEQ in DEXTROSE 5%/LACTATED RINGERS 1,000 ML 125 ML IV CONT ×2 (08:54→17:46)
[2020-06-12] MEDS: hydrOXYzine HCl 50 MG/ML VIAL 25 MG IM ×3 (08:55→19:49)
[2020-06-12] MEDS: FAMOTIDINE 20 MG/2 ML VIAL IV PUSH ×2 (08:55→20:51)
[2020-06-12] MEDS: ONDANSETRON INJ 4 MG/2 ML VIAL IV PUSH ×3 (08:55→20:51)
[2020-06-12 09:04] VITALS: BP 117/75; PULSE 105
[2020-06-12 09:05] LABS: Add Urine Microscopic? YES; Appearance Urine Cloudy (Clear); Bacteria Urine Trace /hpf; Bilirubin Urine Negative (Negative); Blood Urine Negative (Negative); Color Urine Yellow (Yellow); Glucose Urine UA Negative (Negative); Ketones Urine 2+ mg/dL (Negative); Leukocyte Esterase Ur Trace LEU/UL (NEGATIVE); Mucus Urine Rare /lpf; Nitrate Urine Negative (Negative); Protein Urine 2+ mg/dL (Negative); Specific Grav Ur 1.023 (1.001-1.035); Squamous Epithelial Cell Urine Many /hpf (Few); WBC Urine 21-30 /hpf (0-3)
[2020-06-12 09:06] LABS: Anion Gap 18 mmol/L (8-16); Blood Urea Nitrogen 7 mg/dL (7-17); Calcium 9.8 mg/dL (8.4-10.2); Carbon Dioxide 14 mmol/L (22-30); Chloride 97 mmol/L (98-107); Estimated Glomerular Filt Rate > 60; Glucose 80 mg/dL (65-105); Potassium 3.5 mmol/L (3.4-5.0); Sodium 129 mmol/L (137-145)
--- NOTE | 2020-06-12 09:10 | PC.NURSE ---
0905- Patient refusing to be monitored at this time.
--- NOTE | 2020-06-12 09:14 | LDADM ---
This patient, Aisha Cuevas, was admitted to [facility] on 06/12/20 at 06:42. Plans for labor, pain management and were discussed with patient. Patient/family oriented to hospital policies and general routines including ID bracelet, bed and alarms, visiting hours, pain management, procedures, bathroom and other care routines, personal items, smoking policy, room service/diet and guest tray routines, security routines, and visiting hours. Patient/Family are encouraged to report perceived risks to care and to ask questions if they do not understand what they are told or what they should do. See OBIX for further documentation.
[2020-06-12] MEDS: NICOTINE (*PBKC) 14 MG PATCH 1 PATCH TRANSDERM ×3 (09:38→21:58)
--- NOTE | 2020-06-12 14:21 | PC.NURSE ---
1415- Patient refusing to be monitored at this time. States that she will let me do it later.
[2020-06-12 20:49] VITALS: BP 137/75; PULSE 98
[2020-06-12 20:51] VITALS: TEMP 36.7
[2020-06-12] MEDS: SALINE LOCK FLUSH 2 ML IV PUSH (21:00)
--- NOTE | 2020-06-12 21:04 | PC.NURSE ---
pt refused NST. US monitor placed for approx 30 sec. FHT's 150's. Pt sitting up eating ice cream and then states she plans to shower.
[2020-06-13] MEDS: hydrOXYzine HCl 50 MG/ML VIAL 25 MG IM (00:38)
[2020-06-13] MEDS: ONDANSETRON INJ 4 MG/2 ML VIAL IV PUSH ×2 (03:17→09:30)
--- NOTE | 2020-06-13 04:30 | PC.NURSE ---
Int to give pt Visteril. Pt refused. pt refusing monitoring and vitals
[2020-06-13] MEDS: POTASSIUM CHLORIDE INJ 40 MEQ in DEXTROSE 5%/LACTATED RINGERS 1,000 ML 125 ML IV CONT (06:41)
[2020-06-13] MEDS: FAMOTIDINE 20 MG/2 ML VIAL IV PUSH (09:30)
[2020-06-13 09:50] VITALS: BP 116/71; PULSE 88
--- NOTE | 2020-06-13 12:11 | PM.IMHP ---
H&P: HPI History of Present Illness Date/Time: 06/13/20 12:11 Patient is a primip at 25 weeks presents due to returning chronic nausea and vomiting. Patient admitted multiple times for hypokalemia due to self induced vomitting. Patient states felt fine after leaving for two days. Patient reports was not eating at home though. patient states that she doesn't know if she lost weight this time. Patient is very tearful today and wants to leave AMA. Family/partner is unsupportive. Patient reports movement. Reports ate ice cream and fluids was able to keep down today and yesterday. Chief Complaint: nausea and vomiting Chief Complaint: nausea PMFSH Past Medical History Medical History (Updated 06/09/20 @ 18:07 by Cornell Chung MD) Anxiety Asthma Constipation Elevated liver enzymes resolved was from prior admit Hypokalemia Surgical History Surgical History History of tympanostomy Family History Family History Father Alive and well Mother Alive and well Social History Social History Smoking packs per day: 0.5 Smoking cigarettes per day: 10.0 Years smoked: 10 Smoking pack-years: 5.00 Smoking status: Current some day smoker Tobacco type: cigarettes and e-cigarettes/vaping Second hand tobacco smoke exposure: Yes Additional smoking assessment comments: HAS BEEN SMOKING PUFF BAR SINCE NOVEMBER 2019 Alcohol intake: former Substance use: current Substance use type: marijuana Other substance usage details: OCCASIONAL MARIJUANA Gender identity (if verbalized by the patient): Female Spiritual care concerns: No Meds Home Medications and Allergies Home Medications Medication Instructions Recorded Confirmed Type ondansetron 4 mg PO Q6H #30 tablet 02/26/20 06/12/20 Rx acetaminophen [Mapap 1,000 mg PO Q6H PRN #0 tablet 04/27/20 06/12/20 Rx (acetaminophen)] calcium carbonate 200 mg PO Q6H PRN tablet 05/08/20 06/12/20 Rx potassium chloride 20 meq PO DAILY #30 tablet 06/02/20 06/12/20 Rx szyozuagqe-ziqnnxewufiry-etpq 1 cap PO Q4H PRN 06/10/20 06/12/20 History [Fioricet] hydroxyzine HCl 25 mg PO Q4H PRN #60 tablet 06/10/20 06/12/20 Rx Allergies Allergy/AdvReac Type Severity Reaction Status Date / Time diphenhydramine Allergy Palpitation Verified 06/08/20 15:23 [From Benadryl] s metoclopramide AdvReac Unknown Anxiety Verified 06/08/20 15:23 prochlorperazine AdvReac Unknown Anxiety Verified 06/08/20 15:23 Vital Signs Vital Signs - 24 hr 06/12/20 20:49 06/12/20 20:51 06/13/20 09:50 Temperature 36.7 C Pulse Rate 98 88 Blood Pressure 137/75 116/71 Exam Narrative: Exam Narrative: soft nontender abdomen, gravid. movement Const: Nutritional Appearance: thin and underweight Orientation/consciousness: oriented to person, oriented to place and oriented to time H&P: Results Labs Labs: cbc, CMP pending Assessment and Plan Assessment and plan (1) Anxiety: Code(s): F41.9 - Anxiety disorder, unspecified Status: Acute Assessment and Plan: concerned for bulimia patient started on lexapro. Patient declines psych consult and s/p social service consult however rude with staff. (2) Hyperemesis gravidarum: Code(s): O21.0 - Mild hyperemesis gravidarum Status: Acute Assessment and Plan: continue with zofran. daily weight checks, restart clinimax for nutrition. reviewed picc line and feeding tube. (3) Hypokalemia: Code(s): E87.6 - Hypokalemia Status: Acute Assessment and Plan: stable potassium at this time.
[2020-06-13 12:34] LABS: Hematocrit 29.4 % (37.0-47.0); Mean Corpuscular Hemoglobin 32.4 pg (26-34); Mean Corpuscular Volume 95.1 fl (80-100); Mean Platelet Volume 10.9 fl (7.4-10.4); Platelet Count Result 289 k/mm3 (150-375); Red Blood Count 3.09 M/mm3 (4.2-5.4); Red Cell Distribution Width 12.5 % (11.5-14.5); White Blood Count 10.1 K/mm3 (4.5-10.0)
[2020-06-13 12:43] LABS: Alanine Aminotransferase 123 U/L (4-35); Albumin Level 3.9 g/dL (3.5-5.1); Alkaline Phosphatase 80 U/L (38-126); Anion Gap 6 mmol/L (8-16); Aspartate Amino Transferase 108 U/L (14-36); Bilirubin,Total 0.4 mg/dL (0.2-1.3); Calcium 9.3 mg/dL (8.4-10.2); Carbon Dioxide 24 mmol/L (22-30); Chloride 101 mmol/L (98-107); Estimated Glomerular Filt Rate > 60; Glucose 81 mg/dL (65-105); Potassium 4.2 mmol/L (3.4-5.0); Sodium 131 mmol/L (137-145)
[2020-06-13 13:00] LABS: Blood Urea Nitrogen < 2 mg/dL (7-17)
--- NOTE | 2020-06-13 13:00 | PC.NURSE ---
Patient states that she is wanting to leave. Informed patient that I just spoke with Dr Chung and do not have a discharge order. Patient states that she is not staying. Discussed importance of cont of care and monitoring nutrition. Patient currently eating ice creams and states that she is going to leave no matter what I said. AMA form signed.
[2020-06-13 14:28] LABS: Magnesium 1.8 mg/dL (1.6-2.3)
[2020-06-13 14:35] LABS: Transferrin 317 mg/dL (206-381)
== END 2020-06-13 13:05 ==
LOC: ANHOBPP 06:48
PROVIDERS: Admitting Provider Obstetrics & Gynecology; Visit Provider Obstetrics & Gynecology
DX: O21.0 Mild hyperemesis gravidarum (principal); Z3A.25 25 weeks gestation of pregnancy; E87.6 Hypokalemia
CPT/HCPCS: 36415; 80048; 80053; 81001; 83735; 84466; 85027; 87086; 87088; 96365; 96366; 96372; 96375; 96376; A9270; G0378; G0379; J0131; J2405; J3410; J3480; J7121

== ENCOUNTER 2020-06-25 08:46 | Observation (INO) | payer OTHER, SELFPAY ==
[2020-06-25] VITALS (7 sets, daily range): BP systolic 95–102; BP diastolic 56–67; PULSE 102–106; RESP 20; TEMP 36.1–38.4; BMI 19.3
--- NOTE | ~2020-06-25 | US_ITS ---
EXAMINATION: US abdomen limited DATE: 06/26/2020 12:52 INDICATION: Right upper quadrant pain TECHNIQUE: Multiple ultrasound grayscale images of the kidneys and right upper quadrant of the abdome n were obtained. COMPARISON: 02/13/2020 FINDINGS: The pancreatic head and body are normal in appearance. The pancreatic tail is not visualized. Liver h as normal echogenicity and contour, with a smooth surface. No liver lesion identified. No intrahepati c biliary duct dilation suspected. Portal venous flow was seen in the hepatopetal, normal direction a nd has normal Doppler waveform. There is hypoechoic material which is new since the prior study likel y representing sludge within the otherwise normal-appearing gallbladder. No abnormal gallbladder wall thickening or shadowing cholelithiasis. The common bile duct measures 3 mm, which is normal. Sonogra phic Wilkins sign was reported as positive by the plaque maker. The visualized proximal inferior vena c samson is normal. The right kidney measures 11.9 x 4.9 x 6.1 cm. The left kidney measures 11.7 x 5.9 x 4.6 cm. The kidn eys demonstrate normal echogenicity. There is no hydronephrosis in either kidney. No stones identifie d. Normal bilateral renal artery resistive indices measuring between 0.57-0.64 on the right and 0.56- 0.72 on the left. IMPRESSION: 1. Gallbladder sludge with positive sonographic Wilkins's sign but with no shadowing cholelithiasis or gallbladder dilation or wall thickening to more specifically suggest acute cholecystitis. This is in determinate for acute cholecystitis but of low suspicion. 2. Normal kidneys with no hydronephrosis. Reviewed, dictated and finalized at location A. IMPRESSION: 1. Gallbladder sludge with positive sonographic Wilkins's sign but with no shado wing cholelithiasis or gallbladder dilation or wall thickening to more specific ally suggest acute cholecystitis. This is indeterminate for acute cholecystitis but of low suspicion. 2. Normal kidneys with no hydronephrosis.
--- NOTE | ~2020-06-25 | US_ITS ---
EXAMINATION: US renal BI DATE: 06/26/2020 12:52 INDICATION: Right upper quadrant pain TECHNIQUE: Multiple ultrasound grayscale images of the kidneys right upper quadrant of the abdomen we re obtained. COMPARISON: 02/13/2020 FINDINGS: The pancreatic head and body are normal in appearance. The pancreatic tail is not visualized. Liver has normal echogenicity and contour, with a smooth surface. No liver lesion identified. No intrahepat ic biliary duct dilation suspected. Portal venous flow was seen in the hepatopetal, normal direction and has normal Doppler waveform. There is hypoechoic material which is new since the prior study like ly representing sludge within the otherwise normal-appearing gallbladder. No abnormal gallbladder wal l thickening or shadowing cholelithiasis. The common bile duct measures 3 mm, which is normal. Sonogr aphic Wilkins sign was reported as positive by the edge roller. The right kidney measures 11.9 x 4.9 x 6.1 cm. The left kidney measures 11.7 x 5.9 x 4.6 cm. The kidn eys demonstrate normal echogenicity. There is no hydronephrosis in either kidney. No stones identifi ed. Normal bilateral renal artery resistive indices measuring between 0.57-0.64 on the right and 0.56 -0.72 on the left. IMPRESSION: 1. Gallbladder sludge with positive sonographic Wilkins's sign but with no shadowing cholelithiasis o r gallbladder dilation or wall thickening to more specifically suggest acute cholecystitis. This is i ndeterminate for acute cholecystitis but of low suspicion. 2. Normal kidneys with no hydronephrosis. Reviewed, dictated and finalized at location A. IMPRESSION: 1. Gallbladder sludge with positive sonographic Wilkins's sign but with no shad owing cholelithiasis or gallbladder dilation or wall thickening to more specifi lolita suggest acute cholecystitis. This is indeterminate for acute cholecystiti s but of low suspicion. 2. Normal kidneys with no hydronephrosis.
--- NOTE | ~2020-06-25 | US_ITS ---
EXAMINATION: US OB limited DATE: 06/26/2020 12:52 INDICATION: Abdominal pain. Assess placenta. TECHNIQUE: Real-time ultrasound of the pelvis was performed. The interpreting radiologist was not pre sent for the study. COMPARISON: None. FINDINGS: There is a single living fetus in vertex presentation. The placenta is anterior. heart rate is 137 beats per minute (bpm). The amniotic fluid volume is subjectively normal. IMPRESSION: 1. Single living fetus in vertex presentation with heart rate of 137 bpm. 2. Normal anterior placenta. Reviewed, dictated and finalized at location A. IMPRESSION: 1. Single living fetus in vertex presentation with heart rate of 137 bpm . 2. Normal anterior placenta.
[2020-06-25] MEDS: DEXTROSE 5%/LACTATED RINGERS 1,000 ML 100 ML IV CONT (10:02)
[2020-06-25] MEDS: ONDANSETRON INJ 4 MG/2 ML VIAL IV PUSH ×3 (10:03→21:50)
[2020-06-25] MEDS: FAMOTIDINE 20 MG/2 ML VIAL IV PUSH ×2 (10:13→21:50)
[2020-06-25 11:42] LABS: Alanine Aminotransferase 36 U/L (4-35); Albumin Level 3.6 g/dL (3.5-5.1); Alkaline Phosphatase 70 U/L (38-126); Anion Gap 3 mmol/L (8-16); Aspartate Amino Transferase 38 U/L (14-36); Bilirubin,Total 0.5 mg/dL (0.2-1.3); Blood Urea Nitrogen 4 mg/dL (7-17); Calcium 8.8 mg/dL (8.4-10.2); Carbon Dioxide 27 mmol/L (22-30); Chloride 99 mmol/L (98-107); Estimated CRCL calculation 134 ml/min; Estimated Glomerular Filt Rate > 60; Glucose 86 mg/dL (65-105); Potassium 3.2 mmol/L (3.4-5.0); Sodium 129 mmol/L (137-145)
[2020-06-25 16:14] LABS: Add Urine Microscopic? YES; Appearance Urine Cloudy (Clear); Bacteria Urine Trace /hpf; Bilirubin Urine Negative (Negative); Blood Urine Negative (Negative); Color Urine Amber (Yellow); Glucose Urine UA Negative (Negative); Ketones Urine 1+ mg/dL (Negative); Leukocyte Esterase Ur 1+ LEU/UL (Negative); Mucus Urine Heavy /lpf; Nitrate Urine Negative (Negative); Protein Urine 3+ mg/dL (Negative); Specific Grav Ur 1.029 (1.001-1.035); Squamous Epithelial Cell Urine Many /hpf (Few); WBC Urine >75 /hpf
[2020-06-25 17:51] LABS: Basophils Percent Auto 0.2 % (0.2-1.2); Hematocrit 25.9 % (37.0-47.0); Hemoglobin 8.8 g/dL (12.0-15.0); Immature Granulocyte Absolute 0.14 K/mm3 (0.00-0.031); Immature Granulocyte Percent A 0.7 % (0-0.5); Lymphocytes Absolute Auto 0.72 K/mm3 (0.9-3.2); Lymphocytes Percent Auto 3.7 % (18.3-44.2); Mean Corpuscular Hemoglobin 31.3 pg (26-34); Mean Corpuscular Volume 92.2 fl (80-100); Mean Platelet Volume 11.8 fl (7.4-10.4); Monocytes Absolute Auto 1.6 K/mm3 (0.1-0.6); Monocytes Percent Auto 8.1 % (2.6-8.5); Neutrophils Absolute Auto 17.1 K/mm3 (1.3-6.7); Neutrophils Percent Auto 87.3 % (45.5-73.1); Platelet Count Result 183 k/mm3 (150-375); Red Blood Count 2.81 M/mm3 (4.2-5.4); Red Cell Distribution Width 12.4 % (11.5-14.5); White Blood Count 19.6 K/mm3 (4.5-10.0)
[2020-06-25] MEDS: ceFAZolin 2 GM/D5W 50 ML 2 GM/50 ML BAG IVPB (18:10)
[2020-06-25] MEDS: DEXTROSE 5%/LACTATED RINGERS 1,000 ML 175 ML IV CONT (20:00)
[2020-06-26] VITALS (13 sets, daily range): BP systolic 78–103; BP diastolic 39–62; PULSE 93–97; RESP 18–20; TEMP 36.8–38.9
[2020-06-26] MEDS: DEXTROSE 5%/LACTATED RINGERS 1,000 ML 175 ML IV CONT ×2 (01:59→09:38)
[2020-06-26] MEDS: ceFAZolin 2 GM/D5W 50 ML 2 GM/50 ML BAG IVPB ×3 (02:00→18:12)
[2020-06-26] MEDS: hydrOXYzine HCl 50 MG/ML VIAL IM (02:07)
[2020-06-26] MEDS: ONDANSETRON INJ 4 MG/2 ML VIAL IV PUSH (04:01)
--- NOTE | 2020-06-26 09:19 | PC.NURSE ---
Pt showering. Pt instructed to notify RN if she needs anything, pt verbalizes understanding.
[2020-06-26] MEDS: FAMOTIDINE 20 MG/2 ML VIAL IV PUSH ×2 (09:38→20:55)
--- NOTE | 2020-06-26 09:40 | PC.NURSE ---
pt declines monitoring
--- NOTE | 2020-06-26 10:22 | PM.IMHP ---
H&P: HPI History of Present Illness Date/Time: 06/26/20 10:22 Patient is a G1 at 27 weeks with a known history of hyperemisis. Patient presents due to back pain and fever. Patient reports symptoms started overnight at about 1 am and got worse. Patient denies any pain with urination. Patient reports nausea actually hasnt been bad as long as she takes her nausea meds as needed. Patient denies epigastric pain. Patient does report Headache. positive movement and denies leakage of fluid. Chief Complaint: right side pain Chief Complaint: right back pain PMFSH Past Medical History Medical History (Updated 06/26/20 @ 10:29 by Cornell Chung MD) Anxiety Asthma Chronic nausea Constipation Elevated liver enzymes resolved was from prior admit Hypokalemia Pyelonephritis affecting in second trimester Surgical History Surgical History History of tympanostomy Family History Family History Father Alive and well Mother Alive and well Social History Social History Smoking packs per day: 0.5 Smoking cigarettes per day: 10.0 Years smoked: 10 Smoking pack-years: 5.00 Smoking status: Current some day smoker Tobacco type: cigarettes and e-cigarettes/vaping Second hand tobacco smoke exposure: Yes Additional smoking assessment comments: HAS BEEN SMOKING PUFF BAR SINCE NOVEMBER 2019 Alcohol intake: former Substance use: current Substance use type: marijuana Other substance usage details: OCCASIONAL MARIJUANA Gender identity (if verbalized by the patient): Female Spiritual care concerns: No Meds Home Medications and Allergies Home Medications Medication Instructions Recorded Confirmed Type ondansetron 4 mg PO Q6H #30 tablet 02/26/20 06/12/20 Rx acetaminophen [Mapap 1,000 mg PO Q6H PRN #0 tablet 04/27/20 06/12/20 Rx (acetaminophen)] calcium carbonate 200 mg PO Q6H PRN tablet 05/08/20 06/12/20 Rx potassium chloride 20 meq PO DAILY #30 tablet 06/02/20 06/12/20 Rx wgenpqbeow-vohsvkvwacklm-zlvn 1 cap PO Q4H PRN 06/10/20 06/12/20 History [Fioricet] hydroxyzine HCl 25 mg PO Q4H PRN #60 tablet 06/10/20 06/12/20 Rx Allergies Allergy/AdvReac Type Severity Reaction Status Date / Time diphenhydramine Allergy Palpitation Verified 06/08/20 15:23 [From Benadryl] s metoclopramide AdvReac Unknown Anxiety Verified 06/08/20 15:23 prochlorperazine AdvReac Unknown Anxiety Verified 06/08/20 15:23 Vital Signs Vital Signs - 24 hr 06/25/20 10:42 06/25/20 11:14 06/25/20 16:14 Temperature 36.1 C L 36.4 C 38.4 C H Pulse Rate Respiratory Rate Blood Pressure 06/25/20 16:44 06/25/20 18:10 06/25/20 18:59 Temperature 38.4 C H 37.4 C 37.0 C Pulse Rate 102 H Respiratory Rate 20 Blood Pressure 95/56 L 06/26/20 02:09 06/26/20 04:15 06/26/20 04:16 Temperature 37.4 C 38.9 C H 38.9 C H Pulse Rate 97 Respiratory Rate 18 20 Blood Pressure 103/62 06/26/20 04:57 06/26/20 04:58 06/26/20 08:34 Temperature 37.7 C H 37.7 C H 37.3 C Pulse Rate Respiratory Rate 18 Blood Pressure H&P: Results Labs Labs: Short CBC 06/25/20 Range/Units 17:21 WBC 19.6 H (4.5-10.0) K/mm3 Hgb 8.8 L (12.0-15.0) g/dL Hct 25.9 L (37.0-47.0) % Plt Count 183 (150-375) k/mm3 BMP 06/25/20 09:43 Sodium 129 L Potassium 3.2 L Chloride 99 Carbon Dioxide 27 BUN 4 L Creatinine 0.40 L Glucose 86 Calcium 8.8 Liver Function 06/25/20 Range/Units 09:43 Total Bilirubin 0.5 (0.2-1.3) mg/dL AST 38 H (14-36) U/L ALT 36 H (4-35) U/L Alkaline Phosphatase 70 (38-126) U/L Albumin 3.6 (3.5-5.1) g/dL Urine 06/25/20 Range/Units 16:00 Urine Color Paula (Yellow) Urine Appearance Cloudy H (Clear) Urine pH 7.0 (5.0-9.0) Ur Specific [place] 1
[2020-06-26 11:15] LABS: Basophils Percent Auto 0.1 % (0.2-1.2); Eosinophils Percent Auto 0.1 % (0-4.4); Immature Granulocyte Absolute 0.19 K/mm3 (0.00-0.031); Immature Granulocyte Percent A 1.2 % (0-0.5); Lymphocytes Absolute Auto 1.99 K/mm3 (0.9-3.2); Lymphocytes Percent Auto 12.2 % (18.3-44.2); Mean Corpuscular Hemoglobin 31.4 pg (26-34); Mean Corpuscular Volume 95.2 fl (80-100); Mean Platelet Volume 11.4 fl (7.4-10.4); Monocytes Absolute Auto 0.9 K/mm3 (0.1-0.6); Monocytes Percent Auto 5.5 % (2.6-8.5); Neutrophils Absolute Auto 13.2 K/mm3 (1.3-6.7); Neutrophils Percent Auto 80.9 % (45.5-73.1); Platelet Count Result 150 k/mm3 (150-375); Red Blood Count 2.07 M/mm3 (4.2-5.4); Red Cell Distribution Width 12.5 % (11.5-14.5); White Blood Count 16.3 K/mm3 (4.5-10.0)
[2020-06-26 11:22] LABS: Hematocrit 19.7 % (37.0-47.0); Hemoglobin 6.5 g/dL (12.0-15.0)
[2020-06-26 11:30] LABS: Anion Gap 4 mmol/L (8-16); Blood Urea Nitrogen 2 mg/dL (7-17); Carbon Dioxide 23 mmol/L (22-30); Chloride 100 mmol/L (98-107); Estimated CRCL calculation 111 ml/min; Estimated Glomerular Filt Rate > 60; Glucose 99 mg/dL (65-105); Potassium 2.8 mmol/L (3.4-5.0); Sodium 127 mmol/L (137-145)
--- NOTE | 2020-06-26 12:01 | PC.NURSE ---
pt to ultrasound per wheelchair
[2020-06-26] MEDS: IRON SUCROSE COMPLEX 200 MG in SODIUM CHLORIDE 0.9% IV 50 ML 120 MG IVPB (13:26)
[2020-06-26] MEDS: POTASSIUM CHLORIDE INJ 40 MEQ in DEXTROSE 5% 1,000 ML 1,000 ML 255 ML IV CONT (14:13)
[2020-06-26] MEDS: HYDROcodone/acetaminophen (*CRX) 10-325 MG TABLET 1 TAB PO (14:20)
[2020-06-27] VITALS (8 sets, daily range): BP systolic 73–111; BP diastolic 37–59; PULSE 80–105; RESP 18; TEMP 36.6–37
[2020-06-27] MEDS: DEXTROSE 5%/LACTATED RINGERS 1,000 ML 175 ML IV CONT ×2 (02:07→12:42)
[2020-06-27] MEDS: ceFAZolin 2 GM/D5W 50 ML 2 GM/50 ML BAG IVPB ×2 (02:07→11:34)
[2020-06-27] MEDS: ONDANSETRON INJ 4 MG/2 ML VIAL IV PUSH ×3 (04:31→18:50)
[2020-06-27 04:35] LABS: Hematocrit 26.4 % (37.0-47.0); Hemoglobin 8.5 g/dL (12.0-15.0); Mean Corpuscular HGB Conc 32.2 g/dl (32-36); Mean Corpuscular Hemoglobin 31.1 pg (26-34); Mean Corpuscular Volume 96.7 fl (80-100); Mean Platelet Volume 11.6 fl (7.4-10.4); Platelet Count Result 173 k/mm3 (150-375); Red Blood Count 2.73 M/mm3 (4.2-5.4); Red Cell Distribution Width 12.9 % (11.5-14.5); White Blood Count 15.2 K/mm3 (4.5-10.0)
[2020-06-27 04:46] LABS: Anion Gap 5 mmol/L (8-16); Calcium 8.7 mg/dL (8.4-10.2); Carbon Dioxide 23 mmol/L (22-30); Chloride 103 mmol/L (98-107); Estimated CRCL calculation 112 ml/min; Estimated Glomerular Filt Rate > 60; Glucose 77 mg/dL (65-105); Potassium 3.2 mmol/L (3.4-5.0); Sodium 131 mmol/L (137-145)
[2020-06-27 05:11] LABS: Blood Urea Nitrogen < 2 mg/dL (7-17)
[2020-06-27 05:16] LABS: Band Neutrophils Percent 11 % (0-6); Lymphocytes Absolute Manual 1.67 K/mm3 (1.1-4.5); Monocytes Absolute Manual 0.45 K/mm3 (0.1-0.90); Monocytes Percent Manual 3 % (3-9); Neutrophils Absolute Manual 13.07 K/mm3 (1.7-7.2); Neutrophils Percent Manual 75 % (46-73); Platelet Estimate Adequate (Adequate); Total Cells Counted 100
[2020-06-27] MEDS: FAMOTIDINE 20 MG/2 ML VIAL IV PUSH (09:04)
[2020-06-27] MEDS: IRON SUCROSE COMPLEX 200 MG in SODIUM CHLORIDE 0.9% IV 50 ML 120 MG IVPB (09:05)
--- NOTE | 2020-06-27 12:55 | PM.OBPNVD ---
OB - PN: Subj Subjective Date/time seen: 06/27/20 12:55 feels better back pain improved reports movement eating applesauce and liquids OB - PN: Obj Data Labs CBC & Chem 7: 06/27/20 04:24 06/27/20 04:24 Labs: Laboratory Results - last 24 hr 06/27/20 06/27/20 04:24 04:24 WBC 15.2 H RBC 2.73 L Hgb 8.5 L Hct 26.4 L MCV 96.7 MCH 31.1 MCHC 32.2 RDW 12.9 Plt Count 173 MPV 11.6 H Immature Gran % (Auto) Not Reportable Neut % (Auto) Not Reportable Lymph % (Auto) Not Reportable [place] % (Auto) Not Reportable Eos % (Auto) Not Reportable Baso % (Auto) Not Reportable Lymph # (Auto) Not Reportable [place] # (Auto) Not Reportable Eos # (Auto) Not Reportable Baso # (Auto) Not Reportable Abs Immat Gran (auto) Not Reportable Absolute Neuts (auto) Not Reportable Absolute Nucleated RBC Not Reportable Total Counted 100 Neutrophils % (Manual) 75 H Band Neutrophils % 11 H Lymphocytes % (Manual) 11.0 L Monocytes % (Manual) 3 Nucleated RBC % Not Reportable Abs Neuts (Manual) 13.07 H Abs Lymphs (Manual) 1.67 Abs Monocytes (Manual) 0.45 Platelet Estimate Adequate Sodium 131 L Potassium 3.2 L Chloride 103 Carbon Dioxide 23 Anion Gap 5 L BUN < 2 L Creatinine 0.50 L Estim Creat Clear Calc 112 Estimated GFR > 60 Glucose 77 Calcium 8.7 Imaging Radiologist's impression: Impressions Renal Ultrasound 06/26/20 12:53 IMPRESSION: 1. Gallbladder sludge with positive sonographic Wilkins's sign but with no shadowing cholelithiasis or gallbladder dilation or wall thickening to more specifically suggest acute cholecystitis. This is indeterminate for acute cholecystitis but of low suspicion. 2. Normal kidneys with no hydronephrosis. Obstetrics Ultrasound 06/26/20 13:07 IMPRESSION: 1. Single living fetus in vertex presentation with heart rate of 137 bpm. 2. Normal anterior placenta. Abdomen Ultrasound 06/26/20 13:11 IMPRESSION: 1. Gallbladder sludge with positive sonographic Wilkins's sign but with no shadowing cholelithiasis or gallbladder dilation or wall thickening to more specifically suggest acute cholecystitis. This is indeterminate for acute cholecystitis but of low suspicion. 2. Normal kidneys with no hydronephrosis. OB - PN A/P Assessment and Plan (1) Pyelonephritis affecting in second trimester: Code(s): O23.02 - Infections of kidney in , second trimester Status: Acute Assessment and Plan: symptoms improved will continue antibiotics until 24 hours afebrile. antibiotics changed to Rocephin for improved sensitivity to E. Coli. (2) Anemia affecting : Code(s): O99.019 - Anemia complicating , unspecified trimester Status: Acute Assessment and Plan: s/p IV iron supplements with improvement will continue with oral Iron when discharged (3) Hyperemesis gravidarum: Code(s): O21.0 - Mild hyperemesis gravidarum Status: Acute Assessment and Plan: continue to encourage diet tolerating liquid diet. daily weight checks. Time Spent With Patient Time: Total time spent is greater than 50% in coordination of care (as documented) at patient's floor/unit and/or counseling patient:
[2020-06-27] MEDS: DEXTROSE 5%/0.9% SOD CHL 1,000 ML 100 ML IV CONT (13:16)
[2020-06-27] MEDS: HYDROcodone/acetaminophen (*CRX) 10-325 MG TABLET 1 TAB PO (19:46)
--- NOTE | 2020-07-15 11:30 | PM.OBTRLD ---
OB - Triage/Final Diagnosis Visit Information Comments/Additional reasons for admission: I have assessed the risk for this patient, Aisha Cuevas, and determined that she would benefit from observation care. Evaluation Laboratory results: Laboratory Tests 06/25/20 06/25/20 06/25/20 09:43 16:00 17:21 WBC 19.6 H RBC 2.81 L Hgb 8.8 L Hct 25.9 L MCV 92.2 MCH 31.3 MCHC 34.0 RDW 12.4 Plt Count 183 MPV 11.8 H Immature Gran % (Auto) 0.7 H Neut % (Auto) 87.3 H Lymph % (Auto) 3.7 L [place] % (Auto) 8.1 Eos % (Auto) 0.0 Baso % (Auto) 0.2 Lymph # (Auto) 0.72 L [place] # (Auto) 1.6 H Eos # (Auto) 0.0 Baso # (Auto) 0.0 Abs Immat Gran (auto) 0.14 H Absolute Neuts (auto) 17.1 H Absolute Nucleated RBC 0.0 Total Counted Neutrophils % (Manual) Band Neutrophils % Lymphocytes % (Manual) Monocytes % (Manual) Nucleated RBC % 0.0 Abs Neuts (Manual) Abs Lymphs (Manual) Abs Monocytes (Manual) Platelet Estimate Sodium 129 L Potassium 3.2 L Chloride 99 Carbon Dioxide 27 Anion Gap 3 L BUN 4 L Creatinine 0.40 L Estim Creat Clear Calc 134 Estimated GFR > 60 Glucose 86 Calcium 8.8 Total Bilirubin 0.5 AST 38 H ALT 36 H Alkaline Phosphatase 70 Total Protein 7.0 Albumin 3.6 Urine Color [place] Urine Appearance Cloudy H Urine pH 7.0 Ur Specific [place] 1.029 Urine Protein 3+ H Urine Glucose (UA) Negative Urine Ketones 1+ H Ur Blood (Man) Negative Urine Nitrate Negative Urine Bilirubin Negative Urine Urobilinogen 4.0 H Leukocyte Esterase Rfl 1+ H Urine RBC 11-20 H Urine WBC >75 H Ur Squamous Epith Cells Many H Urine Bacteria Trace Urine Mucus Heavy H 06/26/20 06/26/20 06/27/20 11:07 11:07 04:24 WBC 16.3 H 15.2 H RBC 2.07 L 2.73 L Hgb 6.5 L* 8.5 L Hct 19.7 L* 26.4 L MCV 95.2 96.7 MCH 31.4 31.1 MCHC 33.0 32.2 RDW 12.5 12.9 Plt Count 150 173 MPV 11.4 H 11.6 H Immature Gran % (Auto) 1.2 H Not Reportable Neut % (Auto) 80.9 H Not Reportable Lymph % (Auto) 12.2 L Not Reportable [place] % (Auto) 5.5 Not Reportable Eos % (Auto) 0.1 Not Reportable Baso % (Auto) 0.1 L Not Reportable Lymph # (Auto) 1.99 Not Reportable [place] # (Auto) 0.9 H Not Reportable Eos # (Auto) 0.0 Not Reportable Baso # (Auto) 0.0 Not Reportable Abs Immat Gran (auto) 0.19 H Not Reportable Absolute Neuts (auto) 13.2 H Not Reportable Absolute Nucleated RBC 0.0 Not Reportable Total Counted 100 Neutrophils % (Manual) 75 H Band Neutrophils % 11 H Lymphocytes % (Manual) 11.0 L Monocytes % (Manual) 3 Nucleated RBC % 0.0 Not Reportable Abs Neuts (Manual) 13.07 H Abs Lymphs (Manual) 1.67 Abs Monocytes (Manual) 0.45 Platelet Estimate Adequate Sodium 127 L Potassium 2.8 L* Chloride 100 Carbon Dioxide 23 Anion Gap 4 L BUN 2 L Creatinine 0.50 L Estim Creat Clear Calc 111 Estimated GFR > 60 Glucose 99 Calcium 8.0 L Total Bilirubin AST ALT Alkaline Phosphatase Total Protein Albumin Urine Color Urine Appearance Urine pH Ur Specific [place] Urine Protein Urine Glucose (UA) Urine Ketones Ur Blood (Man) Urine Nitrate Urine Bilirubin Urine Urobilinogen Leukocyte Esterase Rfl Urine RBC Urine WBC Ur Squamous Epith Cells Urine Bacteria Urine Mucus 06/27/20 04:24 WBC RBC Hgb Hct MCV MCH MCHC RDW Plt Count MPV Immature Gran % (Auto) Neut % (Auto) Lymph % (Auto) [place] % (Auto) Eos % (Auto) Baso % (Auto) Lymph # (Auto) [place] # (Auto) Eos # (Auto) Baso # (Auto) Abs Immat Gran (auto) Absolute Neuts (auto) Absolute Nucleated RBC Total Counted Neutrophils % (Manual) Band Neutrophils % Lymphocytes % (Manual) Monocytes % (Manual) Nu
== END 2020-06-27 21:00 | disposition home or self-care (01) ==
PROVIDERS: Admitting Provider Obstetrics & Gynecology Gynecology; Visit Provider Obstetrics & Gynecology
DX: O26.892 Other specified pregnancy related conditions, second trimester (principal); R10.9 Unspecified abdominal pain; Z3A.27 27 weeks gestation of pregnancy; O99.332 Smoking (tobacco) complicating pregnancy, second trimester; F17.210 Nicotine dependence, cigarettes, uncomplicated; O21.0 Mild hyperemesis gravidarum; O23.02 Infections of kidney in pregnancy, second trimester; R74.8 Abnormal levels of other serum enzymes; O99.019 Anemia complicating pregnancy, unspecified trimester; D64.9 Anemia, unspecified
CPT/HCPCS: 36415; 76705; 76775; 76815; 80048; 80053; 81001; 85025; 87077; 87086; 87088; 87186; 96361; 96365; 96366; 96367; 96372; 96375; 96376; A9270; G0378; G0379; J0131; J0690; J0696; J1756; J2405; J3410; J3480; J7042; J7070; J7121

== ENCOUNTER 2020-07-04 18:24 | Observation (INO) | payer OTHER, SELFPAY ==
--- NOTE | 2020-07-04 18:51 | PC.NURSE ---
pt refusing to be on monitors at this time. Pt stating she wants to take a warm shower and then she will allow baby to be monitored.
[2020-07-04] MEDS: FAMOTIDINE 20 MG/2 ML VIAL IV PUSH (19:26)
[2020-07-04] MEDS: ONDANSETRON INJ 4 MG/2 ML VIAL IV PUSH (19:26)
[2020-07-04] MEDS: DEXTROSE 5%/LACTATED RINGERS 1,000 ML 999 ML XX (19:28)
[2020-07-04 19:32] VITALS: BP 116/72; PULSE 82
[2020-07-04 19:49] LABS: Anion Gap 9 mmol/L (8-16); Blood Urea Nitrogen 5 mg/dL (7-17); Carbon Dioxide 25 mmol/L (22-30); Chloride 102 mmol/L (98-107); Estimated Glomerular Filt Rate > 60; Glucose 81 mg/dL (65-105); Sodium 136 mmol/L (137-145)
[2020-07-04 20:29] VITALS: BP 116/72
[2020-07-04 20:58] LABS: Add Urine Microscopic? YES; Appearance Urine Cloudy (Clear); Bacteria Urine Trace /hpf; Bilirubin Urine Negative (Negative); Blood Urine Negative (Negative); Color Urine Yellow (Yellow); Glucose Urine UA 3+ mg/dL (Negative); Ketones Urine 2+ mg/dL (Negative); Leukocyte Esterase Ur Negative LEU/UL (NEGATIVE); Mucus Urine Rare /lpf; Nitrate Urine Negative (Negative); Protein Urine 1+ mg/dL (Negative); RBC Urine 0-2 /hpf (0-2); Specific Grav Ur 1.018 (1.001-1.035); Squamous Epithelial Cell Urine Many /hpf (Few); Urobilinogen Urine Negative mg/dL (<2.0); WBC Urine 0-3 /hpf (0-3)
--- NOTE | 2020-07-04 21:00 | PC.NURSE ---
pt walking out to smoke. Encouraged pt to not smoke. Pt decided to go smoke anyway.
--- NOTE | 2020-07-04 21:10 | PC.NURSE ---
Dr. Patel notified of pt lab work results and that pt went out to smoke. Orders received for D5LR with 40Meq of KCL at 175ml/hr. Order potassium level for 0500 in the AM and 1g Tylenol IV once for pt headache. Monitor baby Qshift NST.
[2020-07-04 21:25] VITALS: BMI 19.3
[2020-07-04 21:42] VITALS: BP 121/72; PULSE 90; RESP 16; TEMP 36.9; O2SAT 98
[2020-07-04 21:43] VITALS: BP 121/72; PULSE 84; PULSE 90; O2SAT 96
[2020-07-04] MEDS: POTASSIUM CHLORIDE INJ 40 MEQ in DEXTROSE 5%/LACTATED RINGERS 1,000 ML 175 ML IV CONT (21:57)
[2020-07-05] MEDS: ONDANSETRON INJ 4 MG/2 ML VIAL IV PUSH ×2 (00:58→06:37)
[2020-07-05 00:59] VITALS: BP 96/49; PULSE 97; RESP 16; TEMP 36.9; O2SAT 99
[2020-07-05 01:00] VITALS: BP 96/49; PULSE 82; PULSE 87; O2SAT 98
--- NOTE | 2020-07-05 01:20 | PC.NURSE ---
pt unhooked from IV fluids. Pt states shes going outside to smoke.
--- NOTE | 2020-07-05 01:31 | PC.NURSE ---
pt in the shower.
[2020-07-05 05:00] VITALS: BP 105/59; PULSE 77; PULSE 80; PULSE 83; RESP 18; TEMP 36.8; O2SAT 100; O2SAT 99
[2020-07-05] MEDS: POTASSIUM CHLORIDE INJ 40 MEQ in DEXTROSE 5%/LACTATED RINGERS 1,000 ML 175 ML IV CONT (05:07)
--- NOTE | 2020-07-05 05:08 | PC.NURSE ---
pt outside to smoke
[2020-07-05] MEDS: hydrOXYzine HCl 50 MG/ML VIAL 25 MG IM (05:14)
[2020-07-05 05:29] LABS: Potassium 3.8 mmol/L (3.4-5.0)
[2020-07-05 09:48] VITALS: BP 127/78; PULSE 84; RESP 16; TEMP 36.4
--- NOTE | 2020-07-05 10:35 | P.PNOB_ITS ---
OB - Triage/Final Diagnosis Visit Information Date of evaluation: 07/05/20 Comments/Additional reasons for admission: I have assessed the risk for this patient, Aisha Cuevas, and determined that she would benefit from observation care. Patient is at 28 3/7 wks here for dehydration secondary to hypereemesis. Found to have hyokalemia. Also, complains of headache. IV hydrated and K+ replaced. IV zofran, pepcid, and tylenol. Patient keeping water down and feeling much better this am. Will discharge home Evaluation Laboratory results: Laboratory Tests 07/04/20 07/04/20 07/05/20 19:27 20:43 05:06 Sodium 136 L Potassium 3.0 L 3.8 Chloride 102 Carbon Dioxide 25 Anion Gap 9 BUN 5 L Creatinine 0.40 L Estim Creat Clear Calc Not Reportable Estimated GFR > 60 Glucose 81 Calcium 9.0 Urine Color Yellow Urine Appearance Cloudy H Urine pH 7.0 Ur Specific [place] 1.018 Urine Protein 1+ H Urine Glucose (UA) 3+ H Urine Ketones 2+ H Ur Blood (Man) Negative Urine Nitrate Negative Urine Bilirubin Negative Urine Urobilinogen Negative Ur Leukocyte Esterase Negative Urine RBC 0-2 Urine WBC 0-3 Ur Squamous Epith Cells Many H Urine Bacteria Trace Hyaline Casts 1-2 Urine Mucus Rare Vital signs: Vital Signs - 24 hr 07/04/20 19:32 07/04/20 20:29 07/04/20 21:42 Temperature 98.5 F Pulse Rate 82 90 Respiratory Rate 16 Blood Pressure 116/72 121/72 Blood Pressure [Right Arm] 116/72 Pulse Oximetry 98 07/04/20 21:43 07/05/20 00:59 07/05/20 01:00 Temperature 98.5 F Pulse Rate 90 97 82 Respiratory Rate 16 Blood Pressure 121/72 96/49 L 96/49 L Blood Pressure [Right Arm] Pulse Oximetry 96 99 98 07/05/20 05:00 07/05/20 09:48 Temperature 98.3 F 97.6 F Pulse Rate 80 84 Respiratory Rate 18 16 Blood Pressure 105/59 L 127/78 Blood Pressure [Right Arm] Pulse Oximetry 100 Final Diagnosis (1) Hypokalemia: Code(s): E87.6 - Hypokalemia Status: Acute (2) Hyperemesis gravidarum: Code(s): O21.0 - Mild hyperemesis gravidarum Status: Acute
== END 2020-07-05 11:22 | disposition home or self-care (01) ==
PROVIDERS: Admitting Provider Obstetrics & Gynecology Gynecology; Visit Provider Obstetrics & Gynecology Gynecology
DX: O21.0 Mild hyperemesis gravidarum (principal); Z3A.28 28 weeks gestation of pregnancy; E86.0 Dehydration; E87.6 Hypokalemia; R51.9 Headache, unspecified
CPT/HCPCS: 36415; 59025; 80048; 81001; 84132; 96365; 96366; 96367; 96372; 96375; 96376; G0378; G0379; J0131; J2405; J3410; J3480; J7121

== ENCOUNTER 2020-07-05 22:03 | Observation (INO) | payer OTHER, SELFPAY ==
[2020-07-05 22:32] VITALS: BP 133/81; PULSE 98
[2020-07-05] MEDS: ONDANSETRON INJ 4 MG/2 ML VIAL IV PUSH (22:41)
[2020-07-05] MEDS: FAMOTIDINE 20 MG/2 ML VIAL IV PUSH (22:45)
[2020-07-05] MEDS: DEXTROSE 5% 1,000 ML 1,000 ML 175 ML IV CONT (22:49)
[2020-07-05 22:54] VITALS: TEMP 36.6
--- NOTE | 2020-07-05 23:05 | PC.NURSE ---
220 pt asked to go straight to room 115 if available when checking in. Pt states she is feeling very nauseated and needing to throw up. Pt assisted to room. Pt went straight to restroom and began dry heaving and had emesis of bile. 2210 Pt reqesting to shower and asking RN for medications. Linens provided for pt. Informed pt I will call Dr. Patel while she takes a shower for orders. 2230 Pt out of shower and requesting medications. 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 2240 IV established without difficulty. Pt refusing to have baby monitored at this time. 2250 Pt requesting ice chips and warm blankets. Pt requesting RN to call Dr. Patel for Vistaril order. Informed pt RN will call once lab results are back. Pt verbalized understanding. 2305 Pt cont. to refuse monitoring of baby or contractions.
[2020-07-05 23:09] LABS: Anion Gap 8 mmol/L (8-16); Blood Urea Nitrogen 2 mg/dL (7-17); Calcium 9.9 mg/dL (8.4-10.2); Carbon Dioxide 27 mmol/L (22-30); Chloride 99 mmol/L (98-107); Estimated Glomerular Filt Rate > 60; Glucose 88 mg/dL (65-105); Potassium 3.3 mmol/L (3.4-5.0); Sodium 134 mmol/L (137-145)
[2020-07-06] MEDS: hydrOXYzine HCl 50 MG/ML VIAL 25 MG IM ×4 (00:01→23:37)
[2020-07-06 00:08] VITALS: BMI 19.5
--- NOTE | 2020-07-06 03:40 | PC.NURSE ---
Pt requested to be unhooked from IV to go outside to smoke. IV disconnected. Pt states she isn't really feeling better Pt has had no emesis since arrival. pt has been sleeping since medication was given. Pt feeling movements. Pt denies leaking or bleeding.
--- NOTE | 2020-07-06 03:50 | PC.NURSE ---
Pt back to room, RN to bedside to place pt on monitors and reconnect IV. Pt refused monitoring at this time. Pt requesting shower before reconnecting IV. Requested pt at least let RN doppler FHT's, pt gave permission. FHT's 140's. Pt up to shower.
[2020-07-06] MEDS: ONDANSETRON INJ 4 MG/2 ML VIAL IV PUSH ×4 (04:33→23:37)
[2020-07-06] MEDS: DEXTROSE 5% 1,000 ML 1,000 ML 175 ML IV CONT ×3 (05:13→21:36)
--- NOTE | 2020-07-06 07:46 | PC.NURSE ---
0745--Dr. Patel at BS to see pt. and discuss POC.
--- NOTE | 2020-07-06 07:51 | P.PNOB_ITS ---
OB - Triage/Final Diagnosis Visit Information Date of evaluation: 07/06/20 Comments/Additional reasons for admission: I have assessed the risk for this patient, Aisha Cuevas, and determined that she would benefit from observation care. IUP 28 05/12. Patient returns for continued nausea and vomiting. BMP decent. Given IV fluids, zofran, and pepcid. Has not been taking pepcid at home and not been taking macrobid since 4 days ago. Will try to advance diet and dc later today. [facility] age appropiate. Evaluation Laboratory results: Laboratory Tests 07/05/20 22:47 Sodium 134 L Potassium 3.3 L Chloride 99 Carbon Dioxide 27 Anion Gap 8 BUN 2 L Creatinine 0.40 L Estim Creat Clear Calc Not Reportable Estimated GFR > 60 Glucose 88 Calcium 9.9 Vital signs: Vital Signs - 24 hr 07/05/20 22:32 07/05/20 22:54 Temperature 98 F Pulse Rate 98 Blood Pressure 133/81 Final Diagnosis (1) Hyperemesis gravidarum: Code(s): O21.0 - Mild hyperemesis gravidarum Status: Acute
--- NOTE | 2020-07-06 07:51 | PC.NURSE ---
0750--Pt. up to BR, void lg. amount of yellow urine. Pt. then outside to smoke per request. Education offered to pt. re: smoking. Pt. continues to want to smoke.
[2020-07-06 08:01] VITALS: BP 127/90; PULSE 97; TEMP 36.2
[2020-07-06] MEDS: FAMOTIDINE 20 MG/2 ML VIAL IV PUSH ×2 (09:00→21:36)
--- NOTE | 2020-07-06 10:54 | PC.NURSE ---
1030--At BS to give pt. her next dose of Zofran, pt. is up in the shower at this time. Instructed pt. to put call light on when finished to receive her medication.
[2020-07-06 16:47] VITALS: BP 116/66; PULSE 96
--- NOTE | 2020-07-06 18:37 | PC.NURSE ---
1700--Pt. very weepy and discussing her home life and her fears re: being a new mom. Encouragement offered and resources offered to pt.
--- NOTE | 2020-07-06 19:00 | PC.NURSE ---
Documented preadmission on wrong pt.
--- NOTE | 2020-07-06 22:50 | PC.NURSE ---
Pt requesting to be unhooked from IV to go outside to smoke and shower. Pt disconnected.
[2020-07-06 23:38] VITALS: TEMP 37.2
[2020-07-06 23:39] VITALS: BP 100/54; PULSE 67
--- NOTE | 2020-07-07 01:32 | PC.NURSE ---
Addendum entered by Audra Mcginnis RN 07/07/20 01:34: Monitored and vitals done at 2340 not 0134 when charted. Original Note: Pt refused to be monitored. Pt allowed RN to take vitals and monitor FHT's for 3 minutes. FHT's 135 with a 10X10 accel
--- NOTE | 2020-07-07 03:39 | PC.NURSE ---
Pt refuses IV fluids at this time. States It takes you guys to f long to get down here to fix it from beeping . Explained to pt she is here for fluids and states she wants to sleep and leave the fluids off .
[2020-07-07] MEDS: ONDANSETRON INJ 4 MG/2 ML VIAL IV PUSH (04:58)
--- NOTE | 2020-07-07 05:03 | PC.NURSE ---
pt going outside to smoke, pt refusing IV fluids to be reconnected at this time.
--- NOTE | 2020-07-07 08:45 | PC.NURSE ---
Dr. Chung here to discuss plan of care with pt.
[2020-07-07] MEDS: FAMOTIDINE 20 MG/2 ML VIAL IV PUSH (09:06)
[2020-07-07 09:31] VITALS: TEMP 36.6
[2020-07-07 09:34] VITALS: BP 116/74; PULSE 83
== END 2020-07-07 09:50 | disposition home or self-care (01) ==
PROVIDERS: Admitting Provider Obstetrics & Gynecology Gynecology; Visit Provider Obstetrics & Gynecology
DX: O21.0 Mild hyperemesis gravidarum (principal); Z3A.28 28 weeks gestation of pregnancy
CPT/HCPCS: 36415; 59025; 80048; 81001; 84132; 96361; 96365; 96366; 96367; 96372; 96374; 96375; 96376; G0378; G0379; J0131; J2405; J3410; J3480; J7070; J7121

== ENCOUNTER 2020-07-10 06:44 | Observation (INO) | payer OTHER, SELFPAY ==
[2020-07-10] VITALS (7 sets, daily range): BP systolic 103–119; BP diastolic 58–83; PULSE 59–90; RESP 16–18; TEMP 36.4–36.6; BMI 18.7
--- NOTE | ~2020-07-10 | US_ITS ---
US OB follow up DATE: 07/10/2020 14:33 INDICATION: Small for gestational age TECHNIQUE: Real-time imaging and Doppler analysis COMPARISON: 06/26/2020 Limited obstetrical ultrasound FINDINGS: Live bianchi intrauterine gestation, fetus in vertex presentation, longitudinal lie with heart rate of 129 bpm. Anterior placenta. Amniotic fluid index measures 10.5 cm, within lower limits of normal. (5th percentile KIKO: 9.2 cm; 95 th percentile KIKO: 23.1 cm). Biparietal diameter 7.28 cm; 29 weeks 1 day Head circumference 27.84 cm; 30 weeks 3 days Abdominal circumference 23.94 cm; 28 weeks 2 days Femur length 5.65 cm; 29 weeks 5 days Composite age by Hadlock formula is 29 weeks 3 days +/- 2 weeks based upon the current measurements w ith a projected MARK ANTHONY of 09/22/2020, compared to 09/24/2020 by LMP. Estimated weight is 1319 +/- 198 g. Estimated weight-GP: 31.7% Femur length/BPD: 77.55, within normal range of 71.0-87.0 Head circumference/abdominal circumference: 1.16, within normal range of 0.98-1.20 Femur length/abdominal circumference: 23.60, within normal range of 20.00-24.00 Femur length/head circumference: 20.29, within normal range of 19.43-21.06 IMPRESSION: KIKO measures lower limits of normal at 10.5 cm Estimated weight: 1319 +/- 198 g Reviewed, dictated and finalized at [facility]. Reviewed, dictated and finalized at location [facility].
--- NOTE | 2020-07-10 07:05 | PC.NURSE ---
Pt refusing to have monitor applied at this time. Pt states baby is being active and movement visible on maternal abdomen. Denies vaginal bleeding and leakage of fluid.
--- NOTE | 2020-07-10 07:30 | OBADM ---
This patient, Aisha Cuevas, admitted to the OB room 115 at 0644 for observation for nausea and vomiting. Patient/family oriented to hospital policies and general routines including ID bracelet, bed and alarms, visiting hours, pain management, procedures, bathroom and other care routines, personal items, smoking policy, room service/diet, and visiting hours. Patient/Family are encouraged to report perceived risks to care and to ask questions if they do not understand what they are told or what they should do.
--- NOTE | 2020-07-10 07:37 | PC.NURSE ---
Dr. Chung informed of pt's arrival with increased N&V since yesterday. Orders received.
[2020-07-10 07:57] LABS: Hematocrit 26.8 % (37.0-47.0); Hemoglobin 8.9 g/dL (12.0-15.0); Mean Corpuscular HGB Conc 33.2 g/dl (32-36); Mean Corpuscular Hemoglobin 31.6 pg (26-34); Mean Platelet Volume 10.4 fl (7.4-10.4); Platelet Count Result 391 k/mm3 (150-375); Red Blood Count 2.82 M/mm3 (4.2-5.4); Red Cell Distribution Width 12.9 % (11.5-14.5); White Blood Count 9.9 K/mm3 (4.5-10.0)
[2020-07-10] MEDS: ONDANSETRON INJ 4 MG/2 ML VIAL IV PUSH ×3 (07:58→21:00)
[2020-07-10] MEDS: FAMOTIDINE 20 MG/2 ML VIAL IV PUSH ×2 (08:01→21:00)
[2020-07-10 08:09] LABS: Alanine Aminotransferase 149 U/L (4-35); Albumin Level 3.4 g/dL (3.5-5.1); Alkaline Phosphatase 98 U/L (38-126); Anion Gap 8 mmol/L (8-16); Aspartate Amino Transferase 103 U/L (14-36); Bilirubin,Total 0.6 mg/dL (0.2-1.3); Blood Urea Nitrogen 3 mg/dL (7-17); Carbon Dioxide 28 mmol/L (22-30); Chloride 97 mmol/L (98-107); Estimated Glomerular Filt Rate > 60; Glucose 80 mg/dL (65-105); Potassium 2.6 mmol/L (3.4-5.0); Sodium 133 mmol/L (137-145)
--- NOTE | 2020-07-10 08:23 | PC.NURSE ---
Dr. Chung informed K+ 2.6, AST 103, ALT 149, and Hgb 8.9 IV with KCL rate increased to 250 ml/hr.
--- NOTE | 2020-07-10 10:15 | PC.NURSE ---
Pt continues to sleep.
--- NOTE | 2020-07-10 11:57 | PC.NURSE ---
Pt requested her IV be disconnected so she can shower.
[2020-07-10 12:17] LABS: Add Urine Microscopic? YES; Appearance Urine Cloudy (Clear); Bacteria Urine Trace /hpf; Bilirubin Urine Negative (Negative); Blood Urine Negative (Negative); Color Urine Amber (Yellow); Glucose Urine UA Negative (Negative); Ketones Urine 2+ mg/dL (Negative); Leukocyte Esterase Ur Negative LEU/UL (Negative); Mucus Urine Few /lpf; Nitrate Urine Negative (Negative); Protein Urine 1+ mg/dL (Negative); RBC Urine 0-2 /hpf (0-2); Specific Grav Ur 1.016 (1.001-1.035); Squamous Epithelial Cell Urine Many /hpf (Few)
--- NOTE | 2020-07-10 12:25 | PC.NURSE ---
Pt continues to refuse to let monitor be applied. Pt states she is feeling baby move. Rates nausea as a 4 out of 10 at present.
[2020-07-10] MEDS: hydrOXYzine HCl 50 MG/ML VIAL IM ×2 (12:33→19:49)
--- NOTE | 2020-07-10 12:40 | PC.NURSE ---
Dr. Chung in to discuss plan of care with pt. MD has placed additional orders. Orders clarified.
[2020-07-10] MEDS: AMINO ACIDS 4.25%/D5W/LYTES/CA 2,000 ML 80 ML IV CONT (13:31)
--- NOTE | 2020-07-10 14:14 | PC.NURSE ---
Pt continues to refuse monitoring. Pt left unit to smoke and then to U/S per wheelchair.
--- NOTE | 2020-07-10 14:42 | PC.NURSE ---
Pt back from U/S. Pt continues to refuse monitoring. Voided and back in bed.
--- NOTE | 2020-07-10 17:15 | PC.NURSE ---
Pt sleeping. Respirations regular and even.
--- NOTE | 2020-07-10 18:00 | PC.NURSE ---
Pt allowed me to hand hold U/S transducer in place for 6 mins before requesting me to be done monitoring baby. FHT's 135 average during this time.
--- NOTE | 2020-07-10 19:00 | PC.NURSE ---
Pt states she has not felt nauseated since admission. Pt took shower and went outside to smoke. Dressing changed on IV site.
[2020-07-10 19:17] LABS: Magnesium 1.7 mg/dL (1.6-2.3)
[2020-07-10 19:24] LABS: Transferrin 323 mg/dL (206-381)
[2020-07-10 21:09] LABS: Glucose Point of Care 73 mg/dl (65-105)
[2020-07-11 01:21] LABS: Glucose Point of Care 92 mg/dl (65-105)
--- NOTE | 2020-07-11 01:22 | PC.NURSE ---
Pt has been sleeping quietly. No vomiting and denies any nausea at this time. IV infusing without problems. Pt up to void. No complaints at this time.
--- NOTE | 2020-07-11 05:17 | PC.NURSE ---
Lab work drawn. PT insists on going outside to smoke. No vomiting through night. Has been sleeping.
[2020-07-11 05:38] LABS: Partial Thromboplastin Time 24.7 SECONDS (22.3-36.8)
[2020-07-11 05:43] LABS: Alanine Aminotransferase 133 U/L (4-35); Albumin Level 2.9 g/dL (3.5-5.1); Alkaline Phosphatase 73 U/L (38-126); Anion Gap 7 mmol/L (8-16); Aspartate Amino Transferase 110 U/L (14-36); Blood Urea Nitrogen 5 mg/dL (7-17); Calcium 8.6 mg/dL (8.4-10.2); Carbon Dioxide 26 mmol/L (22-30); Chloride 102 mmol/L (98-107); Estimated CRCL calculation 107 ml/min; Estimated Glomerular Filt Rate > 60; Glucose 87 mg/dL (65-105); Potassium 3.4 mmol/L (3.4-5.0); Sodium 135 mmol/L (137-145)
[2020-07-11 05:48] LABS: Phosphorus 3.6 mg/dL (2.5-4.5)
--- NOTE | 2020-07-11 05:50 | PC.NURSE ---
Pt refuses to have monitoring this shift. Pt sates she feels her baby moving and does not need to have monitor.
[2020-07-11 07:45] VITALS: BP 101/56; PULSE 68
[2020-07-11 07:58] LABS: Glucose Point of Care 89 mg/dl (65-105)
--- NOTE | 2020-07-11 08:21 | PC.NURSE ---
0820--Pt requests to shower. Reminded pt of emergency pull cord if needed.
--- NOTE | 2020-07-11 08:23 | PC.NURSE ---
0750--Pt refuses additional FHT monitoring at this point.
--- NOTE | 2020-07-11 08:24 | PC.NURSE ---
0755-Pt requests to go outside to smoke, Reminded pt of risks of this. Pt verbalizes understanding.
[2020-07-11] MEDS: FAMOTIDINE 20 MG/2 ML VIAL IV PUSH (08:57)
[2020-07-11] MEDS: ONDANSETRON INJ 4 MG/2 ML VIAL IV PUSH (10:26)
--- NOTE | 2020-07-11 12:03 | PC.NURSE ---
1020--Pt dozing-awakes easily and reports she is feeling good.
--- NOTE | 2020-07-11 12:04 | PC.NURSE ---
1200--Dr. Chung inquired per phone. Reports given; coming in soon.
--- NOTE | 2020-07-11 14:12 | PC.NURSE ---
1345--Pt outside per request. Risks discussed.
[2020-07-11] MEDS: IRON SUCROSE COMPLEX 200 MG in SODIUM CHLORIDE 0.9% IV 50 ML 120 MG IVPB (14:46)
[2020-07-11 16:05] VITALS: BP 113/62; PULSE 79
[2020-07-11 16:15] VITALS: BP 114/66; PULSE 87
[2020-07-11 16:25] LABS: Triglycerides 167 mg/dL (<150)
[2020-07-11 16:31] VITALS: BP 113/67; PULSE 80
--- NOTE | 2020-07-11 16:59 | PC.NURSE ---
1655--Dr. Chung at bedside. DC orders given.
[2020-07-11 17:01] VITALS: BP 114/66; PULSE 87; RESP 16; TEMP 36.4
--- NOTE | 2020-07-11 17:01 | WPDOBADMIT ---
Obstetrics - Admit Note Admission Note: record reviewed. No pertinent additions to the history and/or any subsequent changes in the physical findings that are not consistent with the expected course of the were found. Patient doing well this am tolerated clinimix and iron supplements. no nausea and vomiting for 24 hours tolerated po well. patient reports movement. denies contractions. . Additions to the history and/or subsequent changes in the physical findings follow. None.
--- NOTE | 2020-07-26 11:02 | PM.OBTRLD ---
OB - Triage/Final Diagnosis Visit Information Comments/Additional reasons for admission: I have assessed the risk for this patient, Aisha Cuevas, and determined that she would benefit from observation care. Evaluation Laboratory results: Laboratory Tests 07/10/20 07/10/20 07/10/20 07:51 07:51 07:52 WBC 9.9 RBC 2.82 L Hgb 8.9 L Hct 26.8 L MCV 95.0 MCH 31.6 MCHC 33.2 RDW 12.9 Plt Count 391 H D MPV 10.4 APTT Sodium 133 L Potassium 2.6 L* Chloride 97 L Carbon Dioxide 28 Anion Gap 8 BUN 3 L Creatinine 0.50 L Estim Creat Clear Calc Not Reportable Estimated GFR > 60 Glucose 80 POC Capillary Glucose Calcium 9.0 Phosphorus Magnesium 1.7 Transferrin 323 Total Bilirubin 0.6 AST 103 H ALT 149 H Alkaline Phosphatase 98 Total Protein 6.0 L Albumin 3.4 L Triglycerides Urine Color Urine Appearance Urine pH Ur Specific [place] Urine Protein Urine Glucose (UA) Urine Ketones Ur Blood (Man) Urine Nitrate Urine Bilirubin Urine Urobilinogen Leukocyte Esterase Rfl Urine RBC Urine WBC Ur Squamous Epith Cells Urine Bacteria Urine Mucus 07/10/20 07/10/20 07/11/20 11:46 19:41 01:14 WBC RBC Hgb Hct MCV MCH MCHC RDW Plt Count MPV APTT Sodium Potassium Chloride Carbon Dioxide Anion Gap BUN Creatinine Estim Creat Clear Calc Estimated GFR Glucose POC Capillary Glucose 73 92 Calcium Phosphorus Magnesium Transferrin Total Bilirubin AST ALT Alkaline Phosphatase Total Protein Albumin Triglycerides Urine Color [place] Urine Appearance Cloudy H Urine pH 8.0 Ur Specific [place] 1.016 Urine Protein 1+ H Urine Glucose (UA) Negative Urine Ketones 2+ H Ur Blood (Man) Negative Urine Nitrate Negative Urine Bilirubin Negative Urine Urobilinogen 2.0 H Leukocyte Esterase Rfl Negative Urine RBC 0-2 Urine WBC 4-6 H Ur Squamous Epith Cells Many H Urine Bacteria Trace Urine Mucus Few H 07/11/20 07/11/20 07/11/20 05:06 05:06 05:06 WBC RBC Hgb Hct MCV MCH MCHC RDW Plt Count MPV APTT 24.7 Sodium Potassium Chloride Carbon Dioxide Anion Gap BUN Creatinine Estim Creat Clear Calc Estimated GFR Glucose POC Capillary Glucose Calcium Phosphorus 3.6 Magnesium Transferrin Total Bilirubin AST ALT Alkaline Phosphatase Total Protein Albumin Triglycerides 167 H Urine Color Urine Appearance Urine pH Ur Specific [place] Urine Protein Urine Glucose (UA) Urine Ketones Ur Blood (Man) Urine Nitrate Urine Bilirubin Urine Urobilinogen Leukocyte Esterase Rfl Urine RBC Urine WBC Ur Squamous Epith Cells Urine Bacteria Urine Mucus 07/11/20 07/11/20 05:06 07:46 WBC RBC Hgb Hct MCV MCH MCHC RDW Plt Count MPV APTT Sodium 135 L Potassium 3.4 Chloride 102 Carbon Dioxide 26 Anion Gap 7 L BUN 5 L Creatinine 0.50 L Estim Creat Clear Calc 107 Estimated GFR > 60 Glucose 87 POC Capillary Glucose 89 Calcium 8.6 Phosphorus Magnesium Transferrin Total Bilirubin 1.0 AST 110 H ALT 133 H Alkaline Phosphatase 73 Total Protein 6.0 L Albumin 2.9 L Triglycerides Urine Color Urine Appearance Urine pH Ur Specific [place] Urine Protein Urine Glucose (UA) Urine Ketones Ur Blood (Man) Urine Nitrate Urine Bilirubin Urine Urobilinogen Leukocyte Esterase Rfl Urine RBC Urine WBC Ur Squamous Epith Cells Urine Bacteria Urine Mucus Final Diagnosis (1) Anemia affecting : Code(s): O99.019 - Anemia complicating , unspecified trime
== END 2020-07-11 17:07 | disposition home or self-care (01) ==
PROVIDERS: Obstetrics & Gynecology Gynecology; Admitting Provider Obstetrics & Gynecology; Visit Provider Obstetrics & Gynecology
DX: O21.0 Mild hyperemesis gravidarum (principal); O99.013 Anemia complicating pregnancy, third trimester; D64.9 Anemia, unspecified; O25.13 Malnutrition in pregnancy, third trimester; Z3A.29 29 weeks gestation of pregnancy; R74.8 Abnormal levels of other serum enzymes
CPT/HCPCS: 36415; 76816; 80053; 81001; 82948; 83735; 84100; 84466; 84478; 85027; 85730; 96365; 96366; 96367; 96372; 96375; 96376; G0378; G0379; J1756; J2405; J3410; J3480; J7121

== ENCOUNTER 2020-07-23 11:15 | Outpatient (RCR) | payer OTHER, SELFPAY | END 2020-09-20 07:53 | disposition home or self-care (01) | LOC: ANHOBOP 11:15 | PROVIDERS: PCP Otolaryngology; Visit Provider Obstetrics & Gynecology Gynecology | DX: O36.8130 Decreased fetal movements, third trimester, not applicable or unspecified (principal); Z3A.35 35 weeks gestation of pregnancy | CPT/HCPCS: 59025 ==

== ENCOUNTER 2020-08-05 10:33 | Outpatient (CLI) | payer OTHER, SELFPAY ==
[2020-08-05 11:12] LABS: Hematocrit 30.6 % (37.0-47.0)
[2020-08-05 11:53] LABS: Vitamin D 25 Hydroxy 47.7 ng/mL
[2020-08-05 11:53] LABS: HIV 1/2 Ab P24 Ag Result Negative (Negative)
== END 2020-08-05 10:34 | disposition home or self-care (01) ==
PROVIDERS: PCP Otolaryngology; Visit Provider Obstetrics & Gynecology Gynecology
DX: Z34.92 Encounter for supervision of normal pregnancy, unspecified, second trimester (principal); Z3A.26 26 weeks gestation of pregnancy
CPT/HCPCS: 36415; 82306; 85014; 85018; 86703; G0432

== ENCOUNTER 2020-08-08 17:20 | Observation (INO) | payer OTHER, SELFPAY ==
[2020-08-08] VITALS (41 sets, daily range): BP systolic 105–152; BP diastolic 47–114; PULSE 95–166; TEMP 36.9–37.4; O2SAT 93–100; BMI 19.8
[2020-08-08] MEDS: FAMOTIDINE 20 MG/2 ML VIAL IV PUSH (17:45)
[2020-08-08] MEDS: ONDANSETRON INJ 4 MG/2 ML VIAL IV PUSH (17:45)
[2020-08-08] MEDS: DEXTROSE 5%/LACTATED RINGERS 1,000 ML 999 ML IV CONT (17:46)
--- NOTE | 2020-08-08 17:50 | PC.NURSE ---
Patient refuses to allow RN to doppler FHTs or take patient's blood pressure until patient's nausea and vomiting subside.
[2020-08-08 18:01] LABS: Hematocrit 34.9 % (37.0-47.0); Hemoglobin 11.2 g/dL (12.0-15.0); Mean Corpuscular HGB Conc 32.1 g/dl (32-36); Mean Corpuscular Hemoglobin 31.4 pg (26-34); Mean Corpuscular Volume 97.8 fl (80-100); Mean Platelet Volume 12.4 fl (7.4-10.4); Platelet Count Result 301 k/mm3 (150-375); Red Blood Count 3.57 M/mm3 (4.2-5.4); White Blood Count 22.1 K/mm3 (4.5-10.0)
[2020-08-08 18:12] LABS: Alanine Aminotransferase 12 U/L (4-35); Albumin Level 4.4 g/dL (3.5-5.1); Alkaline Phosphatase 136 U/L (38-126); Anion Gap 15 mmol/L (8-16); Aspartate Amino Transferase 22 U/L (14-36); Bilirubin,Total 0.5 mg/dL (0.2-1.3); Blood Urea Nitrogen 7 mg/dL (7-17); Calcium 9.7 mg/dL (8.4-10.2); Carbon Dioxide 19 mmol/L (22-30); Chloride 103 mmol/L (98-107); Estimated Glomerular Filt Rate > 60; Glucose 91 mg/dL (65-105); Potassium 3.3 mmol/L (3.4-5.0); Sodium 137 mmol/L (137-145)
--- NOTE | 2020-08-08 18:18 | PC.NURSE ---
Addendum entered by Viry Vanegas RN 08/08/20 18:23: Orders received from Dr. Chung to observe patient over night and to give IV zofran, pepcid, and IV fluids. Orders received from Dr. Chung to not continue to give IV nausea medications until patient allows NST and vital signs to be performed. Original Note: Dr. Chung notified regarding patient's arrival, complaint, and nursing interventions performed. Orders received.
[2020-08-08] MEDS: DEXTROSE 5%/LACTATED RINGERS 1,000 ML 200 ML IV CONT (18:55)
--- NOTE | 2020-08-08 19:01 | PC.NURSE ---
pt called out d/t IV beeping. Pt up to the bathroom. Pt refusing NST and assessment of vital signs at this time, states she needs to feel a little better first. Plan of care discussed, pt agrees, has no needs at this time. Pt resting and will call out with any needs.
--- NOTE | 2020-08-08 19:06 | PC.NURSE ---
pt called out, insisting to step outside to smoke.
[2020-08-08] MEDS: TERBUTALINE SULFATE 1 MG/ML VIAL 0.25 MG SUB-Q (19:52)
[2020-08-08 20:30] LABS: Add Urine Microscopic? YES; Amorphous Sediment Urine Few; Appearance Urine Clear (Clear); Bacteria Urine Trace /hpf; Bilirubin Urine Negative (Negative); Blood Urine Negative (Negative); Color Urine Yellow (Yellow); Glucose Urine UA 3+ mg/dL (Negative); Ketones Urine 1+ mg/dL (Negative); Leukocyte Esterase Ur Negative LEU/UL (Negative); Mucus Urine Rare /lpf; Nitrate Urine Negative (Negative); Protein Urine 1+ mg/dL (Negative); RBC Urine 0-2 /hpf (0-2); Specific Grav Ur 1.018 (1.001-1.035); Squamous Epithelial Cell Urine Rare /hpf (Few); Urobilinogen Urine Negative mg/dL (<2.0)
[2020-08-08 20:35] LABS: Uric Acid 4.1 mg/dL (2.5-7.5)
[2020-08-08 20:45] LABS: Fetal Fibronectin Negative
[2020-08-08] MEDS: hydrOXYzine HCl 50 MG/ML VIAL IM (21:00)
[2020-08-09] MEDS: ONDANSETRON INJ 4 MG/2 ML VIAL IV PUSH ×2 (00:09→06:17)
[2020-08-09] MEDS: DEXTROSE 5%/LACTATED RINGERS 1,000 ML 200 ML IV CONT ×2 (00:09→05:18)
[2020-08-09 02:02] VITALS: BP 115/73; PULSE 79
[2020-08-09] MEDS: FAMOTIDINE 20 MG/2 ML VIAL IV PUSH (05:18)
--- NOTE | 2020-08-09 08:13 | PM.OBTRLD ---
OB - Triage/Final Diagnosis Visit Information Date of evaluation: 08/09/20 Reason for evaluation: other (nausea and vomiting) Comments/Additional reasons for admission: I have assessed the risk for this patient, Aisha Cuevas, and determined that she would benefit from observation care. Patient here yesterday afternoon after being at [place] for holiday. She feels like she probably overate and didn't drink enough. Nausea all day and vomiting so to labor unit. IV hydrated. Contractions noted and given terbutaline x 1 and resolved. Drinking water throughout night and did well. Feeling much better. Evaluation Laboratory results: Laboratory Tests 08/08/20 08/08/20 08/08/20 17:54 17:54 17:54 WBC 22.1 H RBC 3.57 L Hgb 11.2 L Hct 34.9 L MCV 97.8 MCH 31.4 MCHC 32.1 RDW 13.0 Plt Count 301 MPV 12.4 H Sodium 137 Potassium 3.3 L Chloride 103 Carbon Dioxide 19 L Anion Gap 15 BUN 7 Creatinine 0.40 L Estim Creat Clear Calc Not Reportable Estimated GFR > 60 Glucose 91 Uric Acid 4.1 Calcium 9.7 Total Bilirubin 0.5 AST 22 ALT 12 Alkaline Phosphatase 136 H Total Protein 8.0 Albumin 4.4 Urine Color Urine Appearance Urine pH Ur Specific [place] Urine Protein Urine Glucose (UA) Urine Ketones Ur Blood (Man) Urine Nitrate Urine Bilirubin Urine Urobilinogen Leukocyte Esterase Rfl Urine RBC Urine WBC Ur Squamous Epith Cells Amorphous Sediment Urine Bacteria Urine Mucus Fibronectin 08/08/20 08/08/20 20:13 20:13 WBC RBC Hgb Hct MCV MCH MCHC RDW Plt Count MPV Sodium Potassium Chloride Carbon Dioxide Anion Gap BUN Creatinine Estim Creat Clear Calc Estimated GFR Glucose Uric Acid Calcium Total Bilirubin AST ALT Alkaline Phosphatase Total Protein Albumin Urine Color Yellow Urine Appearance Clear Urine pH 8.0 Ur Specific [place] 1.018 Urine Protein 1+ H Urine Glucose (UA) 3+ H Urine Ketones 1+ H Ur Blood (Man) Negative Urine Nitrate Negative Urine Bilirubin Negative Urine Urobilinogen Negative Leukocyte Esterase Rfl Negative Urine RBC 0-2 Urine WBC 4-6 H Ur Squamous Epith Cells Rare Amorphous Sediment Few H Urine Bacteria Trace Urine Mucus Rare Fibronectin Negative Vital signs: Vital Signs - 24 hr 08/08/20 17:45 08/08/20 19:14 08/08/20 19:16 Temperature 99.4 F 98.4 F Pulse Rate 121 H 98 Blood Pressure 150/114 H 152/94 H Pulse Oximetry 08/08/20 19:52 08/08/20 19:57 08/08/20 20:02 Temperature Pulse Rate 104 H Blood Pressure 134/95 H Pulse Oximetry 100 100 08/08/20 20:06 08/08/20 20:11 08/08/20 20:15 Temperature Pulse Rate 126 H Blood Pressure 146/89 H Pulse Oximetry 100 100 08/08/20 20:16 08/08/20 20:21 08/08/20 20:26 Temperature Pulse Rate Blood Pressure Pulse Oximetry 100 100 100 08/08/20 20:31 08/08/20 20:36 08/08/20 20:41 Temperature Pulse Rate 110 H Blood Pressure 144/74 H Pulse Oximetry 100 100 100 08/08/20 20:46 08/08/20 20:51 08/08/20 20:56 Temperature Pulse Rate 112 H Blood Pressure 137/77 Pulse Oximetry 100 98 98 08/08/20 21:00 08/08/20 21:01 08/08/20 21:06 Temperature Pulse Rate 117 H Blood Pressure 151/88 H Pulse Oximetry 100 100 08/08/20 21:11 08/08/20 21:16 08/08/20 21:21 Temperature Pulse Rate Blood Pressure Pulse Oximetry 100 99 99 08/08/20 21:26 08/08/20 21:31 08/08/20 21:36 Temperature Pulse Rate Blood Pressure Pulse Oximetry 99 99 99 08/08/20 21:41 08/08/20 21:46 08/08/20 21:47 Temperature Pulse Rate Blood Pressure Pulse Oximetry 99 93 96 08/08/20 21:48 08/08/20 21:51 08/08/20 21:56 Temperature Pulse Rate Blood Pressure Pulse Oximetry 100 100 98 08/08/20 22:0
[2020-08-09 08:41] VITALS: BP 116/67; PULSE 81
[2020-08-09 08:42] VITALS: TEMP 36.8
== END 2020-08-09 09:20 | disposition home or self-care (01) ==
PROVIDERS: Admitting Provider Obstetrics & Gynecology; PCP Otolaryngology; Visit Provider Obstetrics & Gynecology Gynecology
DX: O21.0 Mild hyperemesis gravidarum (principal); Z3A.33 33 weeks gestation of pregnancy
CPT/HCPCS: 36415; 80053; 81001; 81050; 82570; 82731; 84156; 84550; 85027; 96361; 96372; 96374; 96375; 96376; G0378; G0379; J2405; J3105; J3410; J7121

== ENCOUNTER 2020-08-09 20:24 | Outpatient (NON) | payer OTHER, SELFPAY ==
[2020-08-09 21:32] LABS: Total Volume 24 Hour Urine 1700 ml
[2020-08-09 21:42] LABS: Total Protein Urine 24 Hr 255 mg/24hr (28-141); Total Protein Urine Random 15 mg/dL
[2020-08-09 21:45] LABS: Total Volume 24 Hour Urine 1700 ml
[2020-08-09 22:01] LABS: Creatinine 24 Hour Urine 0.8 gm/24 (0.8-1.8); Creatinine Urine 51.4 mg/dL
== END 2020-08-09 20:25 | disposition home or self-care (01) ==
LOC: ANHOBOP 20:31
PROVIDERS: Visit Provider Obstetrics & Gynecology
DX: O13.9 Gestational [pregnancy-induced] hypertension without significant proteinuria, unspecified trimester (principal); Z3A.00 Weeks of gestation of pregnancy not specified
CPT/HCPCS: 81050; 82570; 84156

== ENCOUNTER 2020-08-11 12:57 | Observation (INO) | payer SELFPAY ==
[2020-08-11 13:15] VITALS: BP 119/60; PULSE 74
--- NOTE | 2020-08-11 13:15 | OBADM ---
This patient, Aisha Cuevas, admitted to the OB room OB Post 113 for observation. Patient/family oriented to hospital policies and general routines including ID bracelet, bed and alarms, visiting hours, pain management, procedures, bathroom and other care routines, personal items, smoking policy, room service/diet, and visiting hours. Patient/Family are encouraged to report perceived risks to care and to ask questions if they do not understand what they are told or what they should do.
[2020-08-11 13:30] VITALS: BP 120/65; PULSE 77
[2020-08-11 13:45] VITALS: BP 114/63; PULSE 82
[2020-08-11 14:00] VITALS: BP 115/73; PULSE 82
--- NOTE | 2020-08-11 14:03 | PC.NURSE ---
Dr Patel notified of c/o contractions and loss of mucus plug after having intercourse last night. No contractions noted and only uterine irritability noted at this time. OK to dc home with labor precautions.
--- NOTE | 2020-08-16 07:42 | PM.OBTRLD ---
OB - Triage/Final Diagnosis Visit Information Reason for evaluation: threatened labor Comments/Additional reasons for admission: I have assessed the risk for this patient, Aisha Cuevas, and determined that she would benefit from observation care.
== END 2020-08-11 14:12 | disposition home or self-care (01) ==
PROVIDERS: Admitting Provider Obstetrics & Gynecology Gynecology; Visit Provider Obstetrics & Gynecology Gynecology
DX: O47.03 False labor before 37 completed weeks of gestation, third trimester (principal); Z3A.33 33 weeks gestation of pregnancy
CPT/HCPCS: G0378; G0379

== ENCOUNTER 2020-09-08 12:39 | Outpatient (CLI) | payer OTHER, SELFPAY ==
--- NOTE | ~2020-09-08 | US_ITS ---
EXAMINATION: US OB follow up DATE: 09/08/2020 13:23 INDICATION: Size greater than dates during third trimester TECHNIQUE: Real-time ultrasound of the pelvis was performed. The interpreting radiologist was not pre sent for the study. COMPARISON: 07/10/2020 FINDINGS: There is a single living fetus in longitudinal lie. The placenta is anterior. cardiac activity and movement are noted. heart rate is 131 beats per minute (bpm). The amniotic fluid index is 13.3 cm which is normal. The following biometric data were obtained: Biparietal diameter (BPD): 8.9 cm; head circumference (HC): 32.1 cm; abdominal circumference (AC): 32 .8 cm; femur length (FL): 7.1 cm. These measurements are concordant. Estimated weight is 2980 g +/- 446 g, which correlates with the 31st percentile when 09/24/2020 is used as estimated date of delivery. As single measurements, these parameters are each equal to the following estimated gestational ages w ith ranges of +/- 2 standard deviations: BPD: 36 weeks 3 days +/- 3 weeks 1 days. HC: 36 weeks 2 days +/- 2 weeks 5 days. AC: 36 weeks 6 days +/- 3 weeks 0 days. FL: 36 weeks 3 days +/- 3 weeks 1 days. estimated gestational age based solely on measurements from this exam is 36 weeks 4 days +/- 2 weeks 4 days. IMPRESSION: 1. Single living fetus in longitudinal lie. 2. Estimated weight is 2980 g +/- 446 g, which correlates with the 31st percentile when 09/25/19 21 is used as estimated date of delivery. 3. Normal amniotic fluid index. Reviewed, dictated and finalized at location A. IMPRESSION: 1. Single living fetus in longitudinal lie. 2. Estimated weight is 2980 g +/- 446 g, which correlates with the 31st p ercentile when 09/24/2020 is used as estimated date of delivery. 3. Normal amniotic fluid index.
== END 2020-09-08 12:40 | disposition home or self-care (01) ==
PROVIDERS: Visit Provider Obstetrics & Gynecology Gynecology
DX: O36.63X0 Maternal care for excessive fetal growth, third trimester, not applicable or unspecified (principal); Z3A.36 36 weeks gestation of pregnancy
CPT/HCPCS: 76816

== ENCOUNTER 2020-09-15 10:48 | Observation (INO) | payer OTHER, SELFPAY ==
--- NOTE | 2020-09-15 10:48 | OBADM ---
This patient, Aisha Cuevas, admitted to the OB room Labor/Delivery/Recovery 105 for observation. Patient/family oriented to hospital policies and general routines including ID bracelet, bed and alarms, visiting hours, pain management, procedures, bathroom and other care routines, personal items, smoking policy, room service/diet, and visiting hours. Patient/Family are encouraged to report perceived risks to care and to ask questions if they do not understand what they are told or what they should do.
[2020-09-15 11:15] VITALS: BMI 20.9
[2020-09-15 12:02] VITALS: BP 110/68; PULSE 62
--- NOTE | 2020-09-20 08:13 | PM.OBTRLD ---
OB - Triage/Final Diagnosis Visit Information Date of evaluation: 09/15/20 Reason for evaluation: threatened labor and other (nausea and vomiting) Comments/Additional reasons for admission: I have assessed the risk for this patient, Aisha Cuevas, and determined that she would benefit from observation care.
== END 2020-09-15 12:28 | disposition home or self-care (01) ==
PROVIDERS: Admitting Provider Obstetrics & Gynecology Gynecology; Visit Provider Obstetrics & Gynecology Gynecology
DX: O47.9 False labor, unspecified (principal); O21.9 Vomiting of pregnancy, unspecified; Z3A.00 Weeks of gestation of pregnancy not specified
CPT/HCPCS: G0378; G0379

== ENCOUNTER 2020-09-16 13:42 | Inpatient (IN) | payer OTHER, SELFPAY ==
[2020-09-16] MEDS: ONDANSETRON INJ 4 MG/2 ML VIAL 8 MG IV PUSH (14:34)
[2020-09-16 14:39] LABS: Basophils Percent Auto 0.2 % (0.2-1.2); Hematocrit 36.2 % (37.0-47.0); Hemoglobin 12.1 g/dL (12.0-15.0); Immature Granulocyte Absolute 0.06 K/mm3 (0.00-0.031); Immature Granulocyte Percent A 0.5 % (0-0.5); Immature Platelet Fraction Pct 20.3 % (0.9-11.2); Lymphocytes Absolute Auto 1.94 K/mm3 (0.9-3.2); Lymphocytes Percent Auto 15.9 % (18.3-44.2); Mean Corpuscular HGB Conc 33.4 g/dl (32-36); Mean Corpuscular Hemoglobin 31.3 pg (26-34); Mean Corpuscular Volume 93.5 fl (80-100); Mean Platelet Volume 13.3 fl (7.4-10.4); Monocytes Absolute Auto 0.6 K/mm3 (0.1-0.6); Monocytes Percent Auto 4.8 % (2.6-8.5); Neutrophils Absolute Auto 9.6 K/mm3 (1.3-6.7); Neutrophils Percent Auto 78.6 % (45.5-73.1); Platelet Count Result 226 k/mm3 (150-375); Red Blood Count 3.87 M/mm3 (4.2-5.4); Red Cell Distribution Width 13.1 % (11.5-14.5); White Blood Count 12.2 K/mm3 (4.5-10.0)
[2020-09-16 14:58] VITALS: BP 112/76; PULSE 68
[2020-09-16] MEDS: DEXTROSE 5%/LACTATED RINGERS 1,000 ML 100 ML IV CONT (15:00)
[2020-09-16] MEDS: FAMOTIDINE 20 MG/2 ML VIAL IV PUSH (16:00)
[2020-09-16] MEDS: DEXTROSE 5%/LACTATED RINGERS 1,000 ML 150 ML IV CONT (16:00)
--- NOTE | 2020-09-16 17:54 | LDADM ---
This patient, Aisha Cuevas, was admitted to OB Post 115 on 09/16/20 at 13:42. Plans for labor, pain management and were discussed with patient. Patient/family oriented to hospital policies and general routines including ID bracelet, bed and alarms, visiting hours, pain management, procedures, bathroom and other care routines, personal items, smoking policy, room service/diet and guest tray routines, security routines, and visiting hours. Patient/Family are encouraged to report perceived risks to care and to ask questions if they do not understand what they are told or what they should do. See OBIX for further documentation.
--- NOTE | 2020-09-16 18:10 | PC.NURSE ---
Pt states she is going out to smoke. States she is still nauseated but thinks smoking will help. Notified housekeeping of need for fan.
[2020-09-16] MEDS: hydrOXYzine HCl 50 MG/ML VIAL 25 MG IM (18:23)
--- NOTE | 2020-09-16 18:25 | PC.NURSE ---
Pt went out to smoke. Vistaril given per order. Pt vomited 200 cc clear. Pt now in shower.
[2020-09-16] MEDS: ONDANSETRON INJ 4 MG/2 ML VIAL IV PUSH (22:56)
[2020-09-17] VITALS (88 sets, daily range): BP systolic 76–168; BP diastolic 27–115; PULSE 57–123; RESP 16–20; TEMP 36.7–37.2; O2SAT 98–100
--- NOTE | 2020-09-17 00:01 | PC.NURSE ---
Pt to room 106 for induction of labor. On arrival to room pt states she is going to take a shower prior to starting induction.
[2020-09-17] MEDS: AMPICILLIN 2 GM/NS 100 ML 2 GM/100 ML BAG IVPB (01:09)
[2020-09-17] MEDS: LACTATED RINGERS 1,000 ML 125 ML IV CONT ×2 (01:09→03:56)
[2020-09-17] MEDS: OXYTOCIN 30 UNITS/NS 500 ML 30 UNITS/500 ML BAG IV CONT (01:10)
[2020-09-17] MEDS: fentaNYL CITRATE INJ (*CRX) 100 MCG/2 ML VIAL 50 MCG IV PUSH ×2 (02:29→03:20)
--- NOTE | 2020-09-17 03:11 | WPDANESEPP ---
Anes - Eval Pre Procedure Procedure: Labor epidural Date/Time: 09/17/20 03:11 Surgeon: Jorge Preop Diagnosis: Abd pain with contractions Pre Op Diagnosis: nv Patient Data Age: 25 Gender: F Height: Weight: Last Vital Signs Temp 98.1 F 09/17/20 01:07 Pulse 67 09/17/20 03:01 BP 145/89 H 09/17/20 03:01 Allergies Allergy/AdvReac Type Severity Reaction Status Date / Time diphenhydramine Allergy Palpitation Verified 08/08/20 18:09 [From Benadryl] s metoclopramide AdvReac Unknown Anxiety Verified 08/08/20 18:09 prochlorperazine AdvReac Unknown Anxiety Verified 08/08/20 18:09 Home Medications Medication Instructions Recorded Confirmed Type ondansetron 4 mg PO Q6H #30 tablet 02/26/20 09/15/20 Rx famotidine [Pepcid] 20 mg PO BID 08/08/20 09/15/20 History Laboratory Tests 09/16/20 09/16/20 09/16/20 14:23 14:23 14:23 WBC 12.2 K/mm3 H K/mm3 (4.5-10.0) RBC 3.87 M/mm3 L M/mm3 (4.2-5.4) Hgb 12.1 g/dL g/dL (12.0-15.0) Hct 36.2 % L % (37.0-47.0) MCV 93.5 fl fl (80-100) MCH 31.3 pg pg (26-34) MCHC 33.4 g/dl g/dl (32-36) RDW 13.1 % % (11.5-14.5) Plt Count 226 k/mm3 k/mm3 (150-375) MPV 13.3 fl H fl (7.4-10.4) Immature Gran % (Auto) 0.5 % % (0-0.5) Neut % (Auto) 78.6 % H % (45.5-73.1) Lymph % (Auto) 15.9 % L % (18.3-44.2) [place] % (Auto) 4.8 % % (2.6-8.5) Eos % (Auto) 0.0 % % (0-4.4) Baso % (Auto) 0.2 % % (0.2-1.2) Lymph # (Auto) 1.94 K/mm3 K/mm3 (0.9-3.2) [place] # (Auto) 0.6 K/mm3 K/mm3 (0.1-0.6) Eos # (Auto) 0.0 K/mm3 K/mm3 (0-0.3) Baso # (Auto) 0.0 K/mm3 K/mm3 (0.0-0.1) Abs Immat Gran (auto) 0.06 K/mm3 H K/mm3 (0.00-0.031) Absolute Neuts (auto) 9.6 K/mm3 H K/mm3 (1.3-6.7) Absolute Nucleated RBC 0.0 K/mm3 K/mm3 (0.0-0.012) Nucleated RBC % 0.0 % % (0.0-0.2) % Immature Plt Fraction 20.3 % H % (0.9-11.2) RPR Pending Blood Type O Positive Antibody Screen Negative Patient hx anesthesia problems: none Family hx anesthesia problems: none PMFSH Past Medical History Medical History Anemia affecting Anxiety Asthma Chronic nausea Constipation Elevated liver enzymes resolved was from prior admit Hypokalemia Malnutrition during in third trimester Pyelonephritis affecting in second trimester UTI (urinary tract infection) Surgical History Surgical History History of tympanostomy Family History Family History Father Alive and well Mother Alive and well Social History Social History Smoking packs per day: 0.5 Smoking cigarettes per day: 10.0 Years smoked: 10 Smoking pack-years: 5.00 Smoking status: Current every day smoker Tobacco type: cigarettes Second hand tobacco smoke exposure: Yes Additional smoking assessment comments: HAS BEEN SMOKING PUFF BAR SINCE NOVEMBER 2019 Alcohol intake: former Substance use: current Substance use type: marijuana Other substance usage details: OCCASIONAL MARIJUANA Gender identity (if verbalized by the patient): Female Spiritual care concerns: No Exam Day of Procedure 09/17/20 03:11 Patient weight: obese Airway: Mallampati scale class II Neurological: alert and oriented
[2020-09-17] MEDS: AMPICILLIN 1 GM/NS 50 ML 1 GM/50 ML BAG IVPB (04:50)
--- NOTE | 2020-09-17 06:12 | WPDOBADMIT ---
Obstetrics - Admit Note Admission Note: record reviewed. No pertinent additions to the history and/or any subsequent changes in the physical findings that are not consistent with the expected course of the were found. Additions to the history and/or subsequent changes in the physical findings follow. None. Patient with n/v and pelvic pressure so came to L&D yesterday. Zofran, Pepcid, and IV fluids given overnight. MIL started at [place]. On my arrival, patient complete.
--- NOTE | 2020-09-17 06:13 | PM.OBPRVD ---
OB - Delivery Note Procedure Delivery date: 09/17/20 Procedure: events: Labor Induction Intrapartal events: None Induction method: per pitocin protocol Delivery monitor: external FHT and external uterine Route of delivery: Laceration Description: Periurethral (R; also upper right clitoral land with 1 cm round hematoma-stable ) Delivery repair: vicryl (3-0) Specimen: Yes (placenta) Quantitative Blood Loss (ml): 100 Anesthesia type: Epidural Disposition: floor Complications: complicated by severe hyperemesis gravidarium Baby Date of : 09/17/20 Time of : 06:00 Weeks of gestation at delivery: 39 gender: Female Weight (pounds): 5 Weight (ounces): 11 presentation: vertex position: Right Occiput Anterior Placenta delivery description: Spontaneous cord vessel description: 3 Vessels and Nuchal Cord score one minute: 9 score five minutes: 9
--- NOTE | 2020-09-17 06:16 | PM.OBDSVD ---
DS: Admitting Diagnosis Admitting Diagnosis hyperemesis gravidarium IUP 39 wks DS: Discharge Diagnosis Discharge Diagnosis (1) Hyperemesis gravidarum: Code(s): O21.0 - Mild hyperemesis gravidarum Status: Acute (2) 39 weeks gestation of : Code(s): Z3A.39 - 39 weeks gestation of Status: Acute (3) (normal spontaneous vaginal delivery): Code(s): O80 - Encounter for full-term uncomplicated delivery Status: Acute OB - DS: Summary OB Procedures : NST, Ultrasound and Other (hyperemesis gravidarium mgmt) OB Procedures Intrapartum: Spontaneous Vag Delivery OB Procedures: : None Peripartum Data Delivery Method: Natural Vaginal Laceration Description: Periurethral complications: none Status at Discharge Functional status at discharge: independent ambulation Overall status at discharge: patient is progressing back to baseline Time Spent with Patient Time attestation: Total time spent providing and/or coordinating discharge services: DS: Data Data Completed and Pending Labs on day of discharge: Labs from last 24 hours 09/16/20 09/16/20 09/16/20 14:23 14:23 14:23 WBC 12.2 H RBC 3.87 L Hgb 12.1 Hct 36.2 L MCV 93.5 MCH 31.3 MCHC 33.4 RDW 13.1 Plt Count 226 MPV 13.3 H Immature Gran % (Auto) 0.5 Neut % (Auto) 78.6 H Lymph % (Auto) 15.9 L [place] % (Auto) 4.8 Eos % (Auto) 0.0 Baso % (Auto) 0.2 Lymph # (Auto) 1.94 [place] # (Auto) 0.6 Eos # (Auto) 0.0 Baso # (Auto) 0.0 Abs Immat Gran (auto) 0.06 H Absolute Neuts (auto) 9.6 H Absolute Nucleated RBC 0.0 Nucleated RBC % 0.0 % Immature Plt Fraction 20.3 H RPR Pending Blood Type O Positive Antibody Screen Negative Discharge Plan Discharge Attending physician on discharge: Divya Patel Discharging Clinician: Cornell Chung Anticipated Discharge Date/Time: 09/19/20 06:17 Patient Disposition: Home, Self-Care Activity: may shower and pelvic rest Diet: regular Discharge Instructions: Education: Mom and Baby Guide Given to: Mother Follow-Up: Call your delivering provider's office for an appointment to be seen in: 6 Weeks Mom and baby should come to the [facility] for the follow-up appointment. Appointment Date/Time: September 21, 2020 at 9:00 am What to expect at your follow-up visit: Blood Pressure Check Physical Assessment Call [phone] if you are unable to keep your appointment time. BREAST CARE: * Wear a snug supportive bra. * For engorgement discomfort: Breast Feeding: * Apply warm moist washcloths * Express milk as needed to relieve engorgement * Wear loose clothing * For sore nipples: * Identify correct latch-on * Apply warm moist washcloths before and after nursing * Air dry nipples after nursing * May apply Lansinoh cream to nipples EPISIOTOMY/PERINEAL CARE: * Until bleeding stops, use your lillie bottle after urinating * Change your pad frequently throughout the day * You may take sitz baths several times a day (fill your bathtub with warm water and soak for 20 minutes.) Do NOT bathe in the water * No tub baths until seen by your physician - You may shower ACTIVITY: * Rest as much as possible. * Do not exercise or lift anything heavier than your baby (such as laundry or other children.) * Avoid stairs or driving as much as possible. * Do not put anything into the vagina. No douching, tampons, or sexual activity until seen by physician. NOTIFY PHYSICIAN IF YOU HAVE ANY QUESTIONS OR IF ANY OF THE FOLLOWING SYMPTOMS OCCUR: * If your perineum becomes red, swollen, or more painful than what you have experienced in the hospital. * If your vaginal bleeding becomes foul smelling. * If your vaginal bleeding becomes more heavy than a period or if yo
[2020-09-17 08:11] LABS: Amphetamine Screen Urine Negative (Negative); Barbiturate Screen Urine Negative (Negative); Benzodiazepines Screen Urine Negative (Negative); Cannabinoid Screen Urine Positive (Negative); Cocaine Screen Urine Negative (Negative); Methadone Screen Urine Negative (Negative); Opiate Screen Urine Negative (Negative); Phencyclidine Screen Urine Negative (Negative)
--- NOTE | 2020-09-17 09:17 | OBPPTRN ---
Patient transferred to post room # 287 via wheelchair. Support person present. Oriented to unit, room, information board, rooming in, admission packet and security measures. Patient verbalizes understanding.
[2020-09-17] MEDS: IBUPROFEN 600 MG TABLET PO ×2 (09:30→21:20)
[2020-09-17] MEDS: ACETAMINOPHEN 325 MG TABLET 650 MG PO (11:43)
[2020-09-17] MEDS: LABETALOL HCL 100 MG TABLET PO (11:44)
[2020-09-17] MEDS: MAGNESIUM SULF 4 GM/WATER100ML 4 GM/100 ML BAG IVPB (12:09)
[2020-09-17] MEDS: LACTATED RINGERS 1,000 ML 75 ML IV CONT (12:10)
[2020-09-17 12:15] LABS: Basophils Percent Auto 0.2 % (0.2-1.2); Hematocrit 32.5 % (37.0-47.0); Hemoglobin 10.9 g/dL (12.0-15.0); Immature Granulocyte Absolute 0.11 K/mm3 (0.00-0.031); Immature Granulocyte Percent A 0.5 % (0-0.5); Immature Platelet Fraction Pct 20.5 % (0.9-11.2); Lymphocytes Absolute Auto 2.47 K/mm3 (0.9-3.2); Lymphocytes Percent Auto 11.9 % (18.3-44.2); Mean Corpuscular HGB Conc 33.5 g/dl (32-36); Mean Corpuscular Hemoglobin 31.9 pg (26-34); Mean Platelet Volume 13.7 fl (7.4-10.4); Monocytes Absolute Auto 1.4 K/mm3 (0.1-0.6); Neutrophils Absolute Auto 16.6 K/mm3 (1.3-6.7); Neutrophils Percent Auto 80.4 % (45.5-73.1); Platelet Count Result 227 k/mm3 (150-375); Red Blood Count 3.42 M/mm3 (4.2-5.4); White Blood Count 20.7 K/mm3 (4.5-10.0)
[2020-09-17 12:29] LABS: Alanine Aminotransferase 33 U/L (4-35); Albumin Level 3.2 g/dL (3.5-5.1); Alkaline Phosphatase 139 U/L (38-126); Anion Gap 6 mmol/L (8-16); Aspartate Amino Transferase 61 U/L (14-36); Bilirubin,Total 0.4 mg/dL (0.2-1.3); Blood Urea Nitrogen 5 mg/dL (7-17); Calcium 8.5 mg/dL (8.4-10.2); Carbon Dioxide 21 mmol/L (22-30); Chloride 106 mmol/L (98-107); Estimated Glomerular Filt Rate > 60; Glucose 86 mg/dL (65-110); Potassium 3.2 mmol/L (3.4-5.0); Sodium 133 mmol/L (137-145); Uric Acid 5.3 mg/dL (2.5-7.5)
[2020-09-17] MEDS: MAGNESIUM SULF 20GM/WATER500ML 500 ML 50 MG IV CONT (13:00)
[2020-09-17 13:13] LABS: Rapid Plasma Reagin Non-Reactive (NonReactive)
[2020-09-17] MEDS: ONDANSETRON INJ 4 MG/2 ML VIAL IV PUSH (17:50)
[2020-09-17] MEDS: FAMOTIDINE 20 MG/2 ML VIAL IV PUSH (21:21)
--- NOTE | 2020-09-18 00:49 | PC.NURSE ---
2310 - pt requesting to go outside and smoke, discussed why we could not and should not let her go (Magnesium Sulfate IV running at this time), pt states she is getting anxious and needs to have a cigarette and get out of her room for awhile, has issues with claustrophobia, asked pt if there is a medication we can get for her to help, states she does not want to take her anxiety medication anymore, stopped taking it when she found out she was , had been given Vistaril on previous admissions during but does not want that either, offered to let her take a shower - refused, insists that she needs to go out for cigarette and she will be fine for the remainder of this hospitalization 2326 - call to , order recieved for Nicotine patch and pt will not get permission to go outside at this time 2328 - offered Nicotine patch to pt - refused, states she wants to refuse Magnesium IV and will leave and go home if she does not get permission to go out for cigarette, discussed why refusing treatment would not be good for her and trying to take baby out of here early will only cause other problems for her 2333 - call to , no new orders, however, Dr. Chung stated that as we cannot legally keep her in her room, if she is adamant about going outside to smoke, we are to DC IVF's while she is out, restart when she comes back in and explain to her that this is all against physician's orders and advice 2335 - above was all explained to pt and she insists that she MUST go outside to have cigarette, and she will be right back in and will not have any more problems until she is discharged Sunday
[2020-09-18] MEDS: MAGNESIUM SULF 20GM/WATER500ML 500 ML 25 MG IV CONT (01:07)
[2020-09-18] MEDS: LACTATED RINGERS 1,000 ML 75 ML IV CONT (01:08)
[2020-09-18 04:00] VITALS: BP 105/68; PULSE 64; RESP 16; TEMP 36.6; O2SAT 100
[2020-09-18 05:43] LABS: Hematocrit 32.2 % (37.0-47.0); Hemoglobin 10.2 g/dL (12.0-15.0)
[2020-09-18 06:30] VITALS: BP 120/89; PULSE 57; RESP 14; TEMP 36.7; O2SAT 100
--- NOTE | 2020-09-18 07:49 | WPDANLDPN2 ---
Anes-Prog Note L&D Date/Time: 09/18/20 07:49 Comfortable throughout: labor and delivery Neuraxial method: epidural Epidural/Spinal procedure site: clean & non-tender Neuro status: Neuro function grossly intact. Cardiovascular status: normal Respiratory status: normal Airway patency: baseline Mental status: baseline Post-Op hydration status: normal Vital Signs: Last Vital Signs Temp 36.6 C 09/18/20 04:00 Pulse 64 09/18/20 04:00 Resp 16 09/18/20 04:00 BP 105/68 09/18/20 04:00 Pulse Ox 100 09/18/20 04:00 Pain score (VAS): 0 I/O: Intake & Output 09/17/20 09/17/20 09/18/20 15:59 23:59 07:59 Intake Total 2720 1100 Output Total 4600 600 Balance -1880 500 Post-procedural complaints: none Patient feedback: Patient satisfied with anesthetic care.
[2020-09-18 08:30] VITALS: BP 127/76; PULSE 68; RESP 14; TEMP 36.6; O2SAT 100
--- NOTE | 2020-09-18 09:07 | PCCCNOTE ---
Received referral for positive THC and community resources. Meconium on baby is pending; no UDS on baby at this time. Met with pt. She confirms THC use. She states smoking since she was 15 years old and used THC during for appetite. She obtains THC socially. She denies use of any other substances. She lives with her significant other/FOB and her 2 step children ages 3 and 5. She indicates her significant other/FOB being supportive. She plans to return home with them at discharge and has more than needed to care for baby at home. She indicates her twin sister and her bonus mother also being supportive. She indicates past DCFS involvement as states being in temporary foster care when she was in high school. Reported pt. situation to DCFS and it does not require investigation however, does meet criteria for child welfare referral to offer services/provide support to the involved family. I have also provided pt. with resources and encouraged she contact any/all of interest. No further care coordination needs indicated at this time.
[2020-09-18] MEDS: IBUPROFEN 600 MG TABLET PO (09:44)
[2020-09-18] MEDS: DOCUSATE SODIUM 100 MG CAPSULE PO (09:44)
[2020-09-18] MEDS: MULTIVIT/MIN/PREN/FOL AC/IRON TABLET 1 TAB PO (09:44)
[2020-09-18] MEDS: ONDANSETRON INJ 4 MG/2 ML VIAL IV PUSH (09:49)
--- NOTE | 2020-09-18 10:52 | PM.OBPNVD ---
OB - PN: Subj Subjective Date/time seen: 09/18/20 10:52 doing well no complaints desires to go smoke OB - PN: Obj Data Labs CBC & Chem 7: 09/18/20 04:15 09/17/20 11:41 Labs: Laboratory Results - last 24 hr 09/16/20 09/17/20 09/17/20 14:23 11:13 11:41 WBC 20.7 H RBC 3.42 L Hgb 10.9 L Hct 32.5 L MCV 95.0 MCH 31.9 MCHC 33.5 RDW 13.0 Plt Count 227 MPV 13.7 H Immature Gran % (Auto) 0.5 Neut % (Auto) 80.4 H Lymph % (Auto) 11.9 L Churchill % (Auto) 7.0 Eos % (Auto) 0.0 Baso % (Auto) 0.2 Lymph # (Auto) 2.47 Churchill # (Auto) 1.4 H Eos # (Auto) 0.0 Baso # (Auto) 0.0 Abs Immat Gran (auto) 0.11 H Absolute Neuts (auto) 16.6 H Absolute Nucleated RBC 0.0 Nucleated RBC % 0.0 % Immature Plt Fraction 20.5 H Sodium 133 L Potassium 3.2 L Chloride 106 Carbon Dioxide 21 L Anion Gap 6 L BUN 5 L Creatinine 0.50 L Estim Creat Clear Calc Not Reportable Estimated GFR > 60 Glucose 86 Uric Acid 5.3 Calcium 8.5 Magnesium Total Bilirubin 0.4 AST 61 H ALT 33 Alkaline Phosphatase 139 H Total Protein 6.0 L Albumin 3.2 L RPR Non-reactive 09/17/20 09/18/20 21:48 04:15 WBC RBC Hgb 10.2 L Hct 32.2 L MCV MCH MCHC RDW Plt Count MPV Immature Gran % (Auto) Neut % (Auto) Lymph % (Auto) Churchill % (Auto) Eos % (Auto) Baso % (Auto) Lymph # (Auto) Churchill # (Auto) Eos # (Auto) Baso # (Auto) Abs Immat Gran (auto) Absolute Neuts (auto) Absolute Nucleated RBC Nucleated RBC % % Immature Plt Fraction Sodium Potassium Chloride Carbon Dioxide Anion Gap BUN Creatinine Estim Creat Clear Calc Estimated GFR Glucose Uric Acid Calcium Magnesium 6.0 H Total Bilirubin AST ALT Alkaline Phosphatase Total Protein Albumin RPR OB - PN A/P Assessment and Plan (1) (normal spontaneous vaginal delivery): Code(s): O80 - Encounter for full-term uncomplicated delivery Status: Acute Assessment and Plan: continue with pp care. (2) PIH ( induced hypertension): Code(s): O13.9 - Gestational [-induced] hypertension without significant proteinuria, unspecified trimester Status: Acute Assessment and Plan: blood pressures continue prn. Time Spent With Patient Time: Total time spent is greater than 50% in coordination of care (as documented) at patient's floor/unit and/or counseling patient: Exam Narrative: ff below umbilicus
[2020-09-18 13:05] VITALS: BP 120/82; PULSE 102; RESP 18; O2SAT 100
[2020-09-18 15:40] VITALS: BP 126/85; PULSE 65; RESP 18; TEMP 36.7; O2SAT 100
--- NOTE | 2020-09-18 17:10 | PC.NURSE ---
Mother has been out to smoke several times today. FOB visited after pt called him and asked him to bring her food that she wanted. Pt watched the discharge DVD as she was asked to do. FOB showed no interest in watching it, did not watch it and did not seem to understand why it was important that pt watch it.
--- NOTE | 2020-09-18 17:13 | PC.NURSE ---
Patient viewed the discharge video Mother & Baby Care, The First Two Weeks . Patient was given the opportunity and encouraged to ask questions. Patient verbalized understanding of information shared and has been given the mother/baby guide for home reference.
[2020-09-18 20:00] VITALS: BP 126/90; PULSE 60; RESP 18; TEMP 36.8; O2SAT 100
[2020-09-18] MEDS: TETANUS,DIPHTHERIA,AC PERTUSSIS ADULT (0.5 ML) BOOSTRIX IM (22:16)
[2020-09-19 00:30] VITALS: BP 104/64; PULSE 51; RESP 16
[2020-09-19 03:55] VITALS: BP 141/100
[2020-09-19 04:10] VITALS: BP 145/103
[2020-09-19] MEDS: IBUPROFEN 600 MG TABLET PO (04:23)
[2020-09-19 04:31] VITALS: PULSE 80
[2020-09-19] MEDS: LABETALOL HCL 100 MG TABLET PO (04:31)
[2020-09-19 07:15] VITALS: BP 124/82; PULSE 66; RESP 18; TEMP 36.6; O2SAT 98
[2020-09-19] MEDS: MULTIVIT/MIN/PREN/FOL AC/IRON TABLET 1 TAB PO (09:20)
[2020-09-19 11:50] VITALS: BP 130/93; PULSE 54
--- NOTE | 2020-09-19 12:10 | PM.OBPNVD ---
OB - PN: Subj Subjective Date/time seen: 09/19/20 12:10 doing well no complaints desires home OB - PN: Obj Data Labs CBC & Chem 7: 09/18/20 04:15 09/17/20 11:41 OB - PN A/P Assessment and Plan (1) PIH ( induced hypertension): Code(s): O13.9 - Gestational [-induced] hypertension without significant proteinuria, unspecified trimester Status: Acute Assessment and Plan: f/u in 48 hours for bp check. (2) (normal spontaneous vaginal delivery): Code(s): O80 - Encounter for full-term uncomplicated delivery Status: Acute Assessment and Plan: d/c home Time Spent With Patient Time: Total time spent is greater than 50% in coordination of care (as documented) at patient's floor/unit and/or counseling patient: Exam Narrative: ff below umbilicus
--- NOTE | 2020-09-19 15:29 | PC.NURSE ---
1200 Dr. Chung here; aware of pt's noon BP; pt to be discharged home today. aware of f/u visit for pt on Sunday, 09-21
--- NOTE | 2020-09-19 15:36 | PC.NURSE ---
1330 Discharge papers for mother brought in and nurse asked pt and FOB to review them. Pt stated she did, but nurse is not sure that she did. Baby's discharge papers then brought in and nurse asked mother to review them, including the feeding plan recommended for . Mother stated, can I read these when I go home, I just want to go home. I know they are important and I'll read them at home. FOB not engaged in discharge process. Baby's feeding plan has been reviewed with mother throughout the morning. Mother has been instructed on importance of regular breast feedings and supplement offered at each feeding. Reinforced importance of f/u visit on 09-21 at 0900 for assessment and BP check for mother and baby's full assessment and repeat hearing screen. Mother voiced understanding. FOB sat holding while mother loaded her belongings on a cart to go to car.
--- NOTE | 2020-09-19 15:41 | PC.NURSE ---
1347 Mother insisted in carrying infant to car in her car seat, and then mother worked to put car seat base in the car. She and baby discharged home at this time.
[2020-09-21 09:03] VITALS: BP 139/98; PULSE 75; RESP 20; TEMP 37.7; O2SAT 100
== END 2020-09-19 13:47 | disposition home or self-care (01) | DRG 560 ==
LOC: ANHLDR 09-17 06:17 → ANHOB2 09-20 15:36 → ANHOBPP 09-20 15:36
PROVIDERS: Admitting Provider Obstetrics & Gynecology Gynecology; Visit Provider Obstetrics & Gynecology
DX: O21.0 Mild hyperemesis gravidarum (principal); Z37.0 Single live birth; Z3A.39 39 weeks gestation of pregnancy; O71.82 Other specified trauma to perineum and vulva; O71.7 Obstetric hematoma of pelvis; O99.344 Other mental disorders complicating childbirth; F41.9 Anxiety disorder, unspecified; O99.824 Streptococcus B carrier state complicating childbirth; O99.214 Obesity complicating childbirth; E66.9 Obesity, unspecified; O99.02 Anemia complicating childbirth; D64.9 Anemia, unspecified; J45.909 Unspecified asthma, uncomplicated; O99.52 Diseases of the respiratory system complicating childbirth; O99.334 Smoking (tobacco) complicating childbirth; F17.290 Nicotine dependence, other tobacco product, uncomplicated; O77.0 Labor and delivery complicated by meconium in amniotic fluid; O13.4 Gestational [pregnancy-induced] hypertension without significant proteinuria, complicating childbirth
CPT/HCPCS: 36415; 80053; 80307; 83735; 84550; 85014; 85018; 85025; 85055; 86592; 86850; 86900; 86901; 88307; 90715; A9270; J0290; J2405; J2590; J2795; J3010; J3410; J3475; J7120; J7121

== ENCOUNTER 2020-09-21 09:41 | Outpatient (CLI) | payer OTHER, SELFPAY ==
[2020-09-21] MEDS: MEASLES,MUMPS,RUBELLA VACCINE 0.5 ML VIAL SUB-Q (10:06)
== END 2020-09-21 09:42 | disposition home or self-care (01) ==
LOC: ANHOBOP 09:43
PROVIDERS: Visit Provider Obstetrics & Gynecology Gynecology
DX: Z23 Encounter for immunization (principal)
CPT/HCPCS: 90710

== ENCOUNTER 2020-10-15 10:53 | Outpatient (RCR) | payer OTHER, SELFPAY ==
[2020-10-13 12:28] LABS: Beta HCG Quantitative < 2.39 mIU/ML
[2020-10-15 12:18] LABS: Beta HCG Quantitative < 2.39 mIU/ML
== END 2021-01-11 23:59 | disposition home or self-care (01) ==
LOC: ANHLAB 10:53
PROVIDERS: Visit Provider Nurse Practitioner
DX: Z32.00 Encounter for pregnancy test, result unknown (principal)
CPT/HCPCS: 36415; 84702

== ENCOUNTER 2021-03-27 19:21 | Emergency (ER) | payer OTHER, SELFPAY ==
[2021-03-27 19:25] VITALS: BP 147/103; PULSE 105; RESP 24; TEMP 36.8; O2SAT 100
--- NOTE | 2021-03-27 20:46 | ED.NAVMDI ---
HPI - Nausea/Vomiting/Diarrhea General Chief complaint: Nausea/Vomiting/Diarrhea Stated complaint: vomiting Time Seen by Provider: 03/27/21 20:36 Source: patient History of Present Illness HPI Narrative: Patient presents with nausea vomiting and abdominal pain. Patient reports she drank a lot of alcohol last night and had nausea and vomiting afterwards. Reports today she is in a hard time keeping things down her symptoms have not improved so she came to the ER for evaluation. She also reports lower abdominal pain and the low back pain. Pain is achy, constant, no clear aggravating or alleviating factors. She denies any fevers or known sick contacts denies any diarrhea. She denies any bile or blood in her emesis Related Data Allergies Allergy/AdvReac Type Severity Reaction Status Date / Time metoclopramide [From Reglan] AdvReac Anxiety Verified 03/27/21 21:02 prochlorperazine AdvReac Anxiety Verified 03/27/21 21:02 [From Compazine] Review of Systems Review of Systems: CONSTITUTIONAL: Denies fever, chills, or sweats. EYES: Denies visual changes, redness, or discharge. ENT: Denies rhinorrhea, congestion, sore throat, or otalgia. CARDIOVASCULAR: Denies chest pain, palpitations, or edema. RESPIRATORY: Denies cough or dyspnea. GASTROINTESTINAL: Abdominal pain with nausea and vomiting GENITOURINARY: Denies dysuria or hematuria. SKIN: Denies rash or itching. MUSCULOSKELETAL: Denies back pain, joint pain, or myalgia. NEUROLOGIC: Denies headache, numbness, dizziness, or weakness. PSYCHIATRIC: Denies anxiety or depression. All systems reviewed & are unremarkable except as noted in HPI and below PMFSH Social History Social History (Updated 03/27/21 @ 20:47 by Ki Ford MD) Alcohol intake: current Exam Narrative: GENERAL: Well-appearing, well-nourished, and in no acute distress. HEAD: Normocephalic, atraumatic. EYES: PERRLA and EOMI. ENT: Nares clear, no rhinorrhea or epistaxis. Mucous membranes moist. NECK: Supple. No masses. No JVD CHEST: Clear to auscultation. No respiratory distress. No wheezes rales or rhonchi HEART: Regular rate and rhythm. No murmur heard. Normal peripheral pulses. ABDOMEN: Soft, nontender, nondistended, normal active bowel sounds. EXTREMITIES: Normal range of motion. No edema. SKIN: Warm, dry, no rash. NEURO: No focal deficits. Alert and oriented x3. PSYCH: Normal mood and affect. Course Reevaluation(s) Reevaluation #1: Patient reports feeling much improved results and plan reviewed with patient. Patient is comfortable outpatient plan. Date: 03/27/21 Time: 22:11 Vital Signs Vital signs: Vital Signs Temperature 36.8 C 03/27/21 19:25 Pulse Rate 105 H 03/27/21 19:25 Respiratory Rate 24 H 03/27/21 19:25 Blood Pressure 147/103 H 03/27/21 19:25 Pulse Oximetry 100 03/27/21 19:25 Temperature 36.8 C 03/27/21 19:25 Pulse Rate 105 H 03/27/21 19:25 Respiratory Rate 24 H 03/27/21 19:25 Blood Pressure 147/103 H 03/27/21 19:25 Pulse Oximetry 100 03/27/21 19:25 MDM - Nausea/Vomiting/Diarrhea MDM Narrative Medical decision making narrative: H&P as above, vss, pt looks clinically well, exam with nonacute abdomen, labs with leukocytosis otherwise clinically unremarkable, additional labs/img considered, symptomatic relief available as needed, on reevaluation pt continues to looks clinically well. Suspect alcohol-related nausea vomiting dns severe sepsis consider dehydration, acute abdomen. plan to tx/monitor as op w/ pcm f/u findings/plan discussed with pt, pt agree/comfortable with plan, return precautions given Lab Data Result diagrams: 03/27/21 20:54 03/27/21 21:48 Labs: Lab Results 03/27/21 03/27/21 Range/Units 20:54 21:48 WBC 20.7 H (4.5-10.0) K/mm3 RBC 4.62 (4.2-5.4) M/mm3 Hgb 14.5 (12.0-15.0) g/dL Hct 43.5 (37.0-47.0) % MCV 94.2 (80-100) fl MCH 31.4 (26-34) pg MCHC 33.3 (32-36) g/dl RDW
[2021-03-27 20:59] LABS: Basophils Percent Auto 0.1 % (0.2-1.2); Hematocrit 43.5 % (37.0-47.0); Hemoglobin 14.5 g/dL (12.0-15.0); Immature Granulocyte Absolute 0.08 K/mm3 (0.00-0.031); Immature Granulocyte Percent A 0.4 % (0-0.5); Lymphocytes Absolute Auto 1.39 K/mm3 (0.9-3.2); Lymphocytes Percent Auto 6.7 % (18.3-44.2); Mean Corpuscular HGB Conc 33.3 g/dl (32-36); Mean Corpuscular Hemoglobin 31.4 pg (26-34); Mean Corpuscular Volume 94.2 fl (80-100); Mean Platelet Volume 11.7 fl (7.4-10.4); Monocytes Absolute Auto 1.2 K/mm3 (0.1-0.6); Monocytes Percent Auto 5.7 % (2.6-8.5); Neutrophils Percent Auto 87.1 % (45.5-73.1); Platelet Count Result 290 k/mm3 (150-375); Red Blood Count 4.62 M/mm3 (4.2-5.4); Red Cell Distribution Width 12.3 % (11.5-14.5); White Blood Count 20.7 K/mm3 (4.5-10.0)
[2021-03-27] MEDS: SODIUM CHLORIDE 0.9% IV 1,000 ML 999 ML IV CONT (21:07)
[2021-03-27] MEDS: KETOROLAC 15 MG/ML VIAL (*BKC) IV PUSH (21:07)
[2021-03-27] MEDS: ONDANSETRON INJ 4 MG/2 ML VIAL IV PUSH (21:08)
[2021-03-27 22:08] LABS: Alanine Aminotransferase 19 U/L (4-35); Albumin Level 4.7 g/dL (3.5-5.1); Alkaline Phosphatase 71 U/L (38-126); Anion Gap 12 mmol/L (8-16); Aspartate Amino Transferase 27 U/L (14-36); Bilirubin,Total 0.3 mg/dL (0.2-1.3); Blood Urea Nitrogen 10 mg/dL (7-17); Calcium 9.1 mg/dL (8.4-10.2); Carbon Dioxide 24 mmol/L (22-30); Chloride 105 mmol/L (98-107); Estimated CRCL calculation 114 ml/min; Estimated Glomerular Filt Rate > 60; Glucose 122 mg/dL (65-110); Lipase 28 U/L (23-300); Potassium 3.3 mmol/L (3.4-5.0); Sodium 141 mmol/L (137-145)
[2021-03-27 22:20] VITALS: BP 142/93; PULSE 98; RESP 16; O2SAT 98
--- NOTE | 2021-04-07 19:42 | PC.NURSE ---
LATE ENTRY This note is being entered to document information to the patient's record. The following information was omitted on 03/27/2021, by Yesica Fallon RN. Pt received 1000ML of NS, 0 volume left in container. Stop time: 0 on 03/27/21.
== END 2021-03-27 22:21 | disposition home or self-care (01) ==
PROVIDERS: Emergency Provider Emergency Medicine
DX: R11.2 Nausea with vomiting, unspecified (principal); E87.6 Hypokalemia; D72.829 Elevated white blood cell count, unspecified
CPT/HCPCS: 36415; 80053; 83690; 85025; 96361; 96374; 96375; 99284; J1885; J2405; J7030

== ENCOUNTER 2021-03-28 07:18 | Emergency (ER) | payer OTHER, SELFPAY ==
--- NOTE | ~2021-03-28 | CT_ITS ---
EXAMINATION: CT abdomen pelvis w con EXAM DATE: 03/28/2021 10:53 INDICATION: Nausea vomiting and abdominal pain. TECHNIQUE: Spiral CT of the abdomen and pelvis was performed following intravenous injection of 100 m L Omnipaque 350. Axial, coronal and sagittal images of the abdomen and pelvis were reviewed. The do se-length product (DLP) for this examination was 221.14 mGy-cm. The exposure was tailored according to patient size (auto mA exposure control), and iterative reconstruction (ASIR) was used as additiona l dose reduction technique. There is no prior study for comparison. FINDINGS: Mild periportal edema, nonspecific. Recommend checking liver enzymes, consider hepatitis pa ricardo. The liver, spleen, adrenal glands and pancreas are otherwise unremarkable. Gallbladder is unre markable. No biliary obstruction. Portal and splenic veins are patent. Kidneys enhance symmetrical ly. There is no hydronephrosis. The uterus and ovaries are unremarkable, no adnexal mass. The felicitas dder is unremarkable. There is no retroperitoneal or pelvic lymphadenopathy. The appendix is normal. The stomach and small bowel are unremarkable. There is expected amount of c olonic stool. No free intraperitoneal gas. The heart is normal in size. There are no pericardial or pleural effusions. The lung bases are unremarkable. The bones are unremarkable. IMPRESSION: Mild nonspecific periportal edema. Portal vein enhances normally. Possible hepatitis. Reviewed, dictated and finalized at location A. [facility] IMPRESSION: Mild nonspecific periportal edema. Portal vein enhances normally. P ossible hepatitis.
[2021-03-28 07:26] VITALS: BP 157/113; PULSE 63; RESP 18; TEMP 36.9; O2SAT 98
[2021-03-28] MEDS: SODIUM CHLORIDE 0.9% IV 1,000 ML 999 ML IV CONT ×2 (07:32→09:12)
[2021-03-28] MEDS: FAMOTIDINE 20 MG/2 ML VIAL IV PUSH (07:32)
[2021-03-28 07:40] LABS: Basophils Percent Auto 0.1 % (0.2-1.2); Hematocrit 41.8 % (37.0-47.0); Hemoglobin 14.2 g/dL (12.0-15.0); Immature Granulocyte Absolute 0.06 K/mm3 (0.00-0.031); Immature Granulocyte Percent A 0.4 % (0-0.5); Lymphocytes Absolute Auto 1.74 K/mm3 (0.9-3.2); Lymphocytes Percent Auto 11.8 % (18.3-44.2); Mean Corpuscular Hemoglobin 31.8 pg (26-34); Mean Corpuscular Volume 93.5 fl (80-100); Mean Platelet Volume 11.5 fl (7.4-10.4); Monocytes Absolute Auto 1.1 K/mm3 (0.1-0.6); Monocytes Percent Auto 7.7 % (2.6-8.5); Neutrophils Absolute Auto 11.8 K/mm3 (1.3-6.7); Platelet Count Result 296 k/mm3 (150-375); Red Blood Count 4.47 M/mm3 (4.2-5.4); Red Cell Distribution Width 12.2 % (11.5-14.5); White Blood Count 14.8 K/mm3 (4.5-10.0)
[2021-03-28] MEDS: ONDANSETRON INJ 4 MG/2 ML VIAL IV PUSH (07:49)
[2021-03-28 08:00] VITALS: BP 162/82; PULSE 50; RESP 14; O2SAT 100
[2021-03-28 08:02] LABS: Alanine Aminotransferase 27 U/L (4-35); Albumin Level 4.9 g/dL (3.5-5.1); Alkaline Phosphatase 68 U/L (38-126); Anion Gap 11 mmol/L (8-16); Aspartate Amino Transferase 29 U/L (14-36); Bilirubin,Total 0.4 mg/dL (0.2-1.3); Blood Urea Nitrogen 12 mg/dL (7-17); Calcium 9.6 mg/dL (8.4-10.2); Carbon Dioxide 25 mmol/L (22-30); Chloride 103 mmol/L (98-107); Estimated CRCL calculation 104 ml/min; Estimated Glomerular Filt Rate > 60; Glucose 129 mg/dL (65-110); Lipase 41 U/L (23-300); Magnesium 1.9 mg/dL (1.6-2.3); Potassium 3.1 mmol/L (3.4-5.0); Sodium 139 mmol/L (137-145)
--- NOTE | 2021-03-28 09:00 | PC.NURSE ---
pt. attempted to void states she cannot.
[2021-03-28 10:20] LABS: SPREG INTERNAL CONTROL Positive; Serum Qual hCG Negative
[2021-03-28 10:41] LABS: Add Urine Microscopic? YES; Appearance Urine Clear (Clear); Bacteria Urine Trace /hpf; Bilirubin Urine Negative (Negative); Blood Urine Negative (Negative); Color Urine Straw (Yellow); Glucose Urine UA Negative (Negative); Ketones Urine Trace mg/dL (Negative); Leukocyte Esterase Ur Negative LEU/UL (Negative); Mucus Urine Rare /lpf; Nitrate Urine Negative (Negative); Protein Urine Negative (Negative); Specific Grav Ur 1.016 (1.001-1.035); Squamous Epithelial Cell Urine Many /hpf (Few); Urobilinogen Urine Negative mg/dL (<2.0); WBC Urine 0-3 /hpf
[2021-03-28 11:15] VITALS: BP 118/68; PULSE 70; RESP 14; O2SAT 99
--- NOTE | 2021-03-28 11:36 | ED.GENADULT ---
HPI - General Adult General Chief complaint: Nausea/Vomiting/Diarrhea Stated complaint: n/v since 0400 yesterday Time Seen by Provider: 03/28/21 07:20 Source: RN notes reviewed History of Present Illness HPI narrative: Patient presents emergency room from home for nausea vomiting. Patient states she has been having nausea vomiting for the past 2 days states numerous episodes of emesis she states it was associate with abdominal cramping earlier but denies any pain at this time denies any fevers or chills chest pain or shortness of breath patient states she was seen in the emergency department yesterday and was worked up and discharge was given Zofran but does not feel the pressure for Zofran yet she denies any other symptoms at this time Related Data Home Medications Medication Instructions Recorded Confirmed famotidine [Pepcid] 20 mg PO BID 08/08/20 09/15/20 Allergies Allergy/AdvReac Type Severity Reaction Status Date / Time diphenhydramine Allergy Palpitation Verified 03/28/21 12:06 [From Ac] s metoclopramide AdvReac Unknown Anxiety Verified 03/28/21 12:06 prochlorperazine AdvReac Unknown Anxiety Verified 03/28/21 12:06 Review of Systems Review of Systems: Gen.: Denies fevers or chills ENT: Denies congestion Respiratory: Denies shortness of breath or cough CV: Denies chest pain or palpitations GI: Denies abdominal pain nausea, emesis or diarrhea see HPI Musculoskeletal: Denies back pain or muscle pain Neuro: Denies numbness, tingling, weakness or focal weakness Skin: Denies rash Except as documented, all other systems reviewed and negative [facility] Past Medical History Medical History Anemia affecting Anxiety Asthma Chronic nausea Constipation Elevated liver enzymes resolved was from prior admit Hypokalemia Malnutrition during in third trimester PIH ( induced hypertension) Pyelonephritis affecting in second trimester UTI (urinary tract infection) Surgical History Surgical History (System 03/28/21 @ 12:06 by Kareem Dickson) History of tympanostomy Family History Family History Father Alive and well Mother Alive and well Social History Social History Smoking packs per day: 0.5 Smoking cigarettes per day: 10.0 Years smoked: 10 Smoking pack-years: 5.00 Smoking status: Current every day smoker Tobacco type: cigarettes Second hand tobacco smoke exposure: Yes Additional smoking assessment comments: HAS BEEN SMOKING PUFF BAR SINCE NOVEMBER 2019 Alcohol intake: current Substance use: current Substance use type: marijuana Other substance usage details: OCCASIONAL MARIJUANA Gender identity (if verbalized by the patient): Female Spiritual care concerns: No Exam Narrative: APPEARANCE: No acute distress, nontoxic, resting in bed EYES: EOMI HEENT: Normocephalic, atraumatic, OMM RESPIRATORY: No respiratory distress Clear to auscultation bilaterally with no rhonchi wheezing or rales. CARDIOVASCULAR: Regular rate and rhythm without murmurs rubs or gallops. ABDOMINAL: Soft, nondistended diffusely tender to palpation no rebound or guarding MUSCULOSKELETAl: Moves all extremities. No clubbing, cyanosis or edema. NEURO: Awake and alert. Following commands, speech normal, no focal deficits SKIN:: Warm, dry. No rashes lesions or abrasions PSYCHIATRIC: Normal affect/mood, Course Course Emergency Course: Had long discussion with patient she states that she does have a history of cannabis hyperemesis syndrome she states she was worked up in [place] prior but states at that time she been smoking marijuana oils and does not do that anymore discussed with her my concern that she is still smoking marijuana and this could be because of the concern of her nausea vomiting she states she was
[2021-03-28] MEDS: PROMETHAZINE HCL 25 MG/ML AMPUL 12.5 MG IV PUSH (11:38)
[2021-03-28 12:00] VITALS: BP 120/68; PULSE 70; RESP 14; TEMP 36.4
[2021-03-28] MEDS: POTASSIUM CHLORIDE 20 MEQ TABLET 40 MEQ PO (12:25)
== END 2021-03-28 12:36 | disposition home or self-care (01) ==
PROVIDERS: Emergency Provider Emergency Medicine
DX: R11.2 Nausea with vomiting, unspecified (principal); J45.909 Unspecified asthma, uncomplicated; Z87.440 Personal history of urinary (tract) infections; F17.210 Nicotine dependence, cigarettes, uncomplicated; F17.290 Nicotine dependence, other tobacco product, uncomplicated; R93.2 Abnormal findings on diagnostic imaging of liver and biliary tract
CPT/HCPCS: 36415; 74177; 80053; 81001; 83690; 83735; 84703; 85025; 96361; 96374; 96375; 99284; A9270; J2405; J2550; J7030; Q9967

== ENCOUNTER 2021-04-13 16:52 | Emergency (ER) | payer OTHER, SELFPAY ==
[2021-04-13 16:57] VITALS: BP 154/100; PULSE 109; RESP 18; TEMP 36.6; O2SAT 100
[2021-04-13 17:20] VITALS: BP 169/119; PULSE 102
[2021-04-13 17:21] VITALS: BP 155/118; PULSE 111
[2021-04-13 17:22] VITALS: BP 144/113; PULSE 110
[2021-04-13 17:42] LABS: Basophils Percent Auto 0.3 % (0.2-1.2); Eosinophils Percent Auto 0.2 % (0-4.4); Hematocrit 45.9 % (37.0-47.0); Hemoglobin 15.9 g/dL (12.0-15.0); Immature Granulocyte Absolute 0.02 K/mm3 (0.00-0.031); Immature Granulocyte Percent A 0.2 % (0-0.5); Lymphocytes Absolute Auto 1.91 K/mm3 (0.9-3.2); Lymphocytes Percent Auto 17.7 % (18.3-44.2); Mean Corpuscular HGB Conc 34.6 g/dl (32-36); Mean Corpuscular Hemoglobin 31.4 pg (26-34); Mean Corpuscular Volume 90.7 fl (80-100); Monocytes Absolute Auto 0.7 K/mm3 (0.1-0.6); Monocytes Percent Auto 6.3 % (2.6-8.5); Neutrophils Absolute Auto 8.1 K/mm3 (1.3-6.7); Neutrophils Percent Auto 75.3 % (45.5-73.1); Platelet Count Result 416 k/mm3 (150-375); Red Blood Count 5.06 M/mm3 (4.2-5.4); Red Cell Distribution Width 11.7 % (11.5-14.5); White Blood Count 10.8 K/mm3 (4.5-10.0)
[2021-04-13 17:50] LABS: Alanine Aminotransferase 21 U/L (4-35); Albumin Level 5.3 g/dL (3.5-5.1); Alkaline Phosphatase 82 U/L (38-126); Anion Gap 13 mmol/L (8-16); Aspartate Amino Transferase 26 U/L (14-36); Bilirubin,Total 0.8 mg/dL (0.2-1.3); Blood Urea Nitrogen 2 mg/dL (7-17); Calcium 9.7 mg/dL (8.4-10.2); Carbon Dioxide 23 mmol/L (22-30); Chloride 99 mmol/L (98-107); Estimated CRCL calculation 114 ml/min; Estimated Glomerular Filt Rate > 60; Glucose 97 mg/dL (65-110); Lipase 51 U/L (23-300); Sodium 135 mmol/L (137-145)
[2021-04-13 17:56] LABS: Add Urine Microscopic? YES; Appearance Urine Cloudy (Clear); Bilirubin Urine Negative (Negative); Blood Urine Negative (Negative); Color Urine Yellow (Yellow); Glucose Urine UA Negative (Negative); Ketones Urine 1+ mg/dL (Negative); Leukocyte Esterase Ur Negative LEU/UL (Negative); Mucus Urine Rare /lpf; Nitrate Urine Negative (Negative); Protein Urine Negative (Negative); Specific Grav Ur 1.012 (1.001-1.035); Squamous Epithelial Cell Urine Moderate /hpf (Few); Urobilinogen Urine Negative mg/dL (<2.0); WBC Urine 0-3 /hpf
--- NOTE | 2021-04-13 18:01 | ED.NAVMDI ---
HPI - Nausea/Vomiting/Diarrhea General Chief complaint: Nausea/Vomiting/Diarrhea Stated complaint: N/V Time Seen by Provider: 04/13/21 17:12 Source: patient Mode of arrival: ambulatory Limitations: no limitations History of Present Illness HPI Narrative: Pt is a 26 y/o female, presents to ED via POV with C/O NV, daily since 03/25/2021, one day after her birthday, when she drank ETOH heavily and smoked THC. She reports since 03/25/2021, she has not used THC or had alcohol however, her nausea persists. She advised triage that she was experiencing diarrhea however, she informs me that she has been constipated and after taking Miralax, she had one, hard, formed stool this morning. She denies fevers, chills or known sick contacts. She denies chance of . She was evaluated here on 03/28/2021 for similar symptoms and she reports she was referred to a vp client services however, she cannot get into the provider until 04/25/2021. She is taking Zofran at home without relief. No additional associated symptoms or modifying factors. MD elicited complaint: nausea and vomiting Onset (ago): week(s) Description of vomiting: food contents and watery Associated nausea: Yes Associated abdominal pain: No (aching, no focal pain) Quality: aching Exacerbating factors: eating Relieving factors: vomiting Related Data Home Medications Medication Instructions Recorded Confirmed famotidine [Pepcid] 20 mg PO BID 08/08/20 09/15/20 Allergies Allergy/AdvReac Type Severity Reaction Status Date / Time diphenhydramine Allergy Palpitation Verified 03/28/21 12:06 [From Benadryl] s metoclopramide AdvReac Unknown Anxiety Verified 03/28/21 12:06 prochlorperazine AdvReac Unknown Anxiety Verified 03/28/21 12:06 Review of Systems Review of Systems: refer to HPI Constitutional: Constitutional: Reports as per HPI Gastrointestinal: Gastrointestinal: Reports as per HPI PMF Past Medical History Medical History Anemia affecting Anxiety Asthma Chronic nausea Constipation Elevated liver enzymes resolved was from prior admit Hypokalemia Malnutrition during in third trimester PIH ( induced hypertension) Pyelonephritis affecting in second trimester UTI (urinary tract infection) Surgical History Surgical History (System 03/28/21 @ 12:06 by Kareem Dickson) History of tympanostomy Family History Family History Father Alive and well Mother Alive and well Social History Social History Smoking packs per day: 0.5 Smoking cigarettes per day: 10.0 Years smoked: 10 Smoking pack-years: 5.00 Smoking status: Current every day smoker Tobacco type: cigarettes Second hand tobacco smoke exposure: Yes Additional smoking assessment comments: HAS BEEN SMOKING PUFF BAR SINCE NOVEMBER 2019 Alcohol intake: former Substance use: current Substance use type: marijuana Other substance usage details: OCCASIONAL MARIJUANA Gender identity (if verbalized by the patient): Female Spiritual care concerns: No Exam Const: General: no acute distress, alert and other (pt will only lay prone. She does not appear to be in acute distress. ) Nutritional Appearance: average body habitus HENMT: Head: normal to inspection Ears: hearing grossly normal bilaterally Face and sinus: normal facial exam, sinuses nontender and face symmetric Mouth: Yes Normal oral and palatal mucosa present Throat: posterior oropharynx normal Eyes: General: appearance normal, both eyes and all related structures Visual Oscar: normal visual oscar by confrontation Alignment and Position: alignment normal Pupils: Equal, round and reactive pupils present EOM: EOMs intact bilaterally Direct Ophthalmoscopy: no photophobia Neck: Neck: normal visual inspection Resp: Ef
--- NOTE | 2021-04-13 18:40 | PC.NURSE ---
Pt sleeping comfortably at this time.
--- NOTE | 2021-04-13 20:34 | PC.NURSE ---
Patient refused tylenol and vital signs at this time.
== END 2021-04-13 20:41 | disposition home or self-care (01) ==
PROVIDERS: Emergency Medicine; Emergency Provider Nurse Practitioner Family
DX: R11.0 Nausea (principal); F17.210 Nicotine dependence, cigarettes, uncomplicated; J45.909 Unspecified asthma, uncomplicated; F41.9 Anxiety disorder, unspecified; Z87.440 Personal history of urinary (tract) infections
CPT/HCPCS: 36415; 80053; 81001; 81025; 83690; 85025; 99283

== ENCOUNTER 2021-04-21 18:36 | Emergency (ER) | payer OTHER, SELFPAY ==
[2021-04-21 18:46] VITALS: BP 129/80; PULSE 81; RESP 18; TEMP 36.6; O2SAT 100
--- NOTE | 2021-04-21 19:25 | ED.GENADULT ---
HPI - General Adult General Chief complaint: Nausea/Vomiting/Diarrhea Stated complaint: N/v Time Seen by Provider: 04/21/21 19:18 History of Present Illness HPI narrative: 26 y/o female, presents to ED via POV with C/O NV, daily since 03/25/2021. Patient states that the symptoms started 1 day after birthday where she did drink heavily and did smoke THC. Patient states she has not had a THC since then. Patient has had multiple visits to the emergency department for evaluation of similar symptoms including nausea and vomiting. Patient states she does have follow-up scheduled with GI in approximately 4 days. Patient states she has not been taking any home medications for this. Patient denies any abdominal pain. Patient states that it is the nausea and vomiting that seems to be bothering her more today. Related Data Home Medications Medication Instructions Recorded Confirmed famotidine [Pepcid] 20 mg PO BID 08/08/20 09/15/20 Allergies Allergy/AdvReac Type Severity Reaction Status Date / Time diphenhydramine Allergy Palpitation Verified 03/28/21 12:06 [From Ac] s metoclopramide AdvReac Unknown Anxiety Verified 03/28/21 12:06 prochlorperazine AdvReac Unknown Anxiety Verified 03/28/21 12:06 Review of Systems Review of Systems: CONSTITUTIONAL: Denies fever, chills, or sweats. EYES: Denies visual changes, redness, or discharge. ENT: Denies rhinorrhea, congestion, sore throat, or otalgia. CARDIOVASCULAR: Denies chest pain, palpitations, or edema. RESPIRATORY: Denies cough or dyspnea. GASTROINTESTINAL: Denies abdominal pain. Persistent nausea and vomiting GENITOURINARY: Denies dysuria or hematuria. SKIN: Denies rash or itching. MUSCULOSKELETAL: Denies back pain, joint pain, or myalgia. NEUROLOGIC: Denies headache, numbness, or weakness. PSYCHIATRIC: Denies anxiety or depression. [facility] Past Medical History Medical History Anemia affecting Anxiety Asthma Chronic nausea Constipation Elevated liver enzymes resolved was from prior admit Hypokalemia Malnutrition during in third trimester PIH ( induced hypertension) Pyelonephritis affecting in second trimester UTI (urinary tract infection) Surgical History Surgical History (System 03/28/21 @ 12:06 by Kareem Dickson) History of tympanostomy Family History Family History Father Alive and well Mother Alive and well Social History Social History Smoking packs per day: 0.5 Smoking cigarettes per day: 10.0 Years smoked: 10 Smoking pack-years: 5.00 Smoking status: Current every day smoker Tobacco type: cigarettes Second hand tobacco smoke exposure: Yes Additional smoking assessment comments: HAS BEEN SMOKING PUFF BAR SINCE NOVEMBER 2019 Alcohol intake: former Substance use: current Substance use type: marijuana Other substance usage details: OCCASIONAL MARIJUANA Gender identity (if verbalized by the patient): Female Spiritual care concerns: No Exam Narrative: APPEARANCE: Well appearing, no pain, no distress, well-nourished. HEAD: normocephalic, atraumatic. EYES: PERRLA/EOMI, conjunctivae clear. THROAT: Pharynx clear, no exudate. NECK: Supple. No adenopathy, no masses. RESPIRATORY: Airway patent, respirations nonlabored. Clear to auscultation bilaterally, no rales, rhonchi, wheezing. CARDIOVASCULAR: Regular rate and rhythm without murmurs rubs or gallops. ABDOMINAL: Soft, nontender, nondistended, normal bowel sounds MUSCULOSKELETAL: Moves all extremities. Strength/ROM intact, No edema, No calf tenderness. NEURO: Alert. Cranial nerves II through XII intact. Good gait. Good coordination SKIN: Warm, dry. Normal Color PSYCHIATRIC: Normal affect/mood. Course Course Emergency Course: Patient reports improvement of her symptoms with t
[2021-04-21 20:21] LABS: Basophils Percent Auto 0.2 % (0.2-1.2); Eosinophils Percent Auto 0.4 % (0-4.4); Hematocrit 42.3 % (37.0-47.0); Hemoglobin 14.6 g/dL (12.0-15.0); Immature Granulocyte Absolute 0.01 K/mm3 (0.00-0.031); Immature Granulocyte Percent A 0.2 % (0-0.5); Lymphocytes Absolute Auto 1.38 K/mm3 (0.9-3.2); Lymphocytes Percent Auto 24.8 % (18.3-44.2); Mean Corpuscular HGB Conc 34.5 g/dl (32-36); Mean Corpuscular Hemoglobin 31.4 pg (26-34); Mean Platelet Volume 11.1 fl (7.4-10.4); Monocytes Absolute Auto 0.4 K/mm3 (0.1-0.6); Monocytes Percent Auto 7.4 % (2.6-8.5); Neutrophils Absolute Auto 3.7 K/mm3 (1.3-6.7); Platelet Count Result 262 k/mm3 (150-375); Red Blood Count 4.65 M/mm3 (4.2-5.4); Red Cell Distribution Width 12.1 % (11.5-14.5); White Blood Count 5.6 K/mm3 (4.5-10.0)
[2021-04-21] MEDS: SODIUM CHLORIDE 0.9% IV 1,000 ML 999 ML IV CONT (20:23)
[2021-04-21] MEDS: ONDANSETRON INJ 4 MG/2 ML VIAL IV PUSH (20:23)
[2021-04-21] MEDS: PANTOPRAZOLE SODIUM IV 40 MG VIAL IV PUSH (20:24)
[2021-04-21 20:35] VITALS: BP 142/78; PULSE 78; RESP 18; O2SAT 98
[2021-04-21 20:56] LABS: Alanine Aminotransferase 21 U/L (4-35); Albumin Level 4.2 g/dL (3.5-5.1); Alkaline Phosphatase 63 U/L (38-126); Anion Gap 7 mmol/L (8-16); Aspartate Amino Transferase 25 U/L (14-36); Bilirubin,Total 0.4 mg/dL (0.2-1.3); Blood Urea Nitrogen 4 mg/dL (7-17); Calcium 8.7 mg/dL (8.4-10.2); Carbon Dioxide 28 mmol/L (22-30); Chloride 102 mmol/L (98-107); Estimated Glomerular Filt Rate > 60; Glucose 107 mg/dL (65-110); Lipase 27 U/L (23-300); Potassium 3.9 mmol/L (3.4-5.0); Sodium 137 mmol/L (137-145)
--- NOTE | 2021-04-21 21:23 | PC.NURSE ---
Pt has IVF infusing at this time.
[2021-04-21 21:50] VITALS: BP 128/80; PULSE 68; RESP 18; O2SAT 98
== END 2021-04-21 22:26 | disposition home or self-care (01) ==
PROVIDERS: Emergency Provider Emergency Medicine
DX: R11.2 Nausea with vomiting, unspecified (principal); J45.909 Unspecified asthma, uncomplicated; Z87.440 Personal history of urinary (tract) infections; F17.290 Nicotine dependence, other tobacco product, uncomplicated
CPT/HCPCS: 36415; 80053; 83690; 85025; 96361; 96374; 96375; 99284; C9113; J2405; J7030

== ENCOUNTER 2021-10-03 08:02 | Emergency (ER) | payer OTHER, SELFPAY ==
[2021-10-03 08:12] VITALS: BP 116/72; PULSE 81; RESP 18; TEMP 36.4; O2SAT 98
[2021-10-03 08:13] VITALS: BP 116/72; PULSE 81; RESP 18; TEMP 36.4; O2SAT 98
--- NOTE | 2021-10-03 08:21 | ED.URI ---
HPI - URI/Sore Throat General Chief Complaint: Upper Respiratory Infection Stated Complaint: Loss of Voice, Sore Throat Time Seen by Provider: 10/03/21 08:22 Source: patient, RN notes reviewed and old records reviewed Mode of arrival: ambulatory Limitations: no limitations History of Present Illness HPI Narrative: 26-year-old female presents to the [facility] with complaints of a sore throat and laryngitis for 2 days. 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 No COVID or flu vaccination Related Data Allergies Allergy/AdvReac Type Severity Reaction Status Date / Time metoclopramide AdvReac Unknown Anxiety Verified 10/03/21 08:12 prochlorperazine AdvReac Unknown Anxiety Verified 10/03/21 08:12 Review of Systems Review of Systems: All systems reviewed & are unremarkable except as noted in HPI and below Constitutional: Constitutional: Reports no additional constitutional complaints, Denies chills and Denies fever(s) Eyes: Eyes: Reports no additional eye complaints ENT: Reports as per HPI and Reports sore throat Cardiovascular: Cardiovascular: Reports no additional cardiovascular complaints Respiratory: Respiratory: Reports as per HPI and Reports cough Gastrointestinal: Gastrointestinal: Reports no additional gastrointestinal complaints Musculoskeletal: Musculoskeletal: Reports no additional musculoskeletal complaints Integumentary/Breasts: Skin/Breast: Reports system reviewed and no additional complaints, except as docu Neurologic: Reports system reviewed and no additional complaints, except as documented Psychiatric: Psychiatric: Reports no additional psychiatric complaints Allergic/Immunologic: Allergic/Immunologic: Reports no additional allergic/immunologic complaints PMFSH Past Medical History Medical History Anemia affecting Anxiety Asthma Chronic nausea Constipation Elevated liver enzymes resolved was from prior admit Hypokalemia Malnutrition during in third trimester PIH ( induced hypertension) Pyelonephritis affecting in second trimester UTI (urinary tract infection) Surgical History Surgical History History of tympanostomy Family History Family History Father Alive and well Mother Alive and well Social History Social History Smoking packs per day: 0.5 Smoking cigarettes per day: 10.0 Years smoked: 10 Smoking pack-years: 5.00 Smoking status: Current every day smoker Tobacco type: cigarettes Second hand tobacco smoke exposure: Yes Additional smoking assessment comments: HAS BEEN SMOKING PUFF BAR SINCE NOVEMBER 2019 Alcohol intake: former Substance use: current Substance use type: marijuana Other substance usage details: OCCASIONAL MARIJUANA Gender identity (if verbalized by the patient): Female Spiritual care concerns: No Comments At the time of my signature, I reviewed and agree with the nursing past medical, surgical, social, and family history. There is no relevant family history pertinent to the patient complaint. Exam Const: General: healthy appearing, no acute distress and alert Nutritional Appearance: well nourished Orientation/consciousness: patient oriented x3 Limitations: no limitations HENMT: Head: normal to inspection Ears: external ears normal, TM's normal bilaterally and EAC's normal General nose exam: Normal external nose present and Normal nares present Face and sinus: normal facial exam Mouth: Yes Normal oral and palatal mucosa present, Yes lip normal and Yes moist mucous membranes Teeth and gingiva: dentition normal Throat: posterior oropharynx normal, tonsils normal, uvula midline, postnasal drainage and no uvular edema Eyes: General: appearance normal, both eyes and all related structures Conjunctivae
== END 2021-10-03 08:45 | disposition home or self-care (01) ==
PROVIDERS: Emergency Provider Nurse Practitioner
DX: J02.8 Acute pharyngitis due to other specified organisms (principal); J04.0 Acute laryngitis; J45.909 Unspecified asthma, uncomplicated; F17.290 Nicotine dependence, other tobacco product, uncomplicated
CPT/HCPCS: 87081; 87880; 99213; G0463

== ENCOUNTER 2022-02-15 14:13 | Outpatient (CLI) | payer OTHER, SELFPAY ==
--- NOTE | ~2022-02-15 | XR_ITS ---
EXAM: XR humerus LT DATE: 02/15/2022 14:36 HISTORY: CONTROL IMPLANT SEP 2020, NON PALPABLE . COMPARISON: None available. FINDINGS: Normal mineralization. No fracture or dislocation. No lytic or blastic lesion. Joint space s and physes are maintained. No erosion or periosteal change. control implant in the medial arm soft tissues. IMPRESSION: control implant is visualized. Otherwise normal left humerus radiograph findings.. Reviewed, dictated and finalized at location K. SPOTTER
== END 2022-02-15 14:14 | disposition home or self-care (01) ==
PROVIDERS: Visit Provider Nurse Practitioner
DX: S40.852A Superficial foreign body of left upper arm, initial encounter (principal); X58.XXXA Exposure to other specified factors, initial encounter; Z30.431 Encounter for routine checking of intrauterine contraceptive device
CPT/HCPCS: 73060

== ENCOUNTER 2022-02-27 00:41 | Day surgery (SDC) | payer OTHER, SELFPAY ==
[2022-02-22 09:46] VITALS: BMI 24.1
--- NOTE | 2022-02-22 09:50 | PC.NURSE ---
Report to the Outpatient Waiting Room, entrance under the green pavilion located off [facility], at time 1200 on date 02/27/22. Planned Procedure Time: 1400. Time changes happen often and if your time is changed the preop area will call you the afternoon before. - You and your visitor will be asked to self-screen and do not enter if you have any COVID symptoms. - Only one visitor is requested with a max of two and NO children visitors are allowed at this time. - The patient visitor may be requested to leave or wait in car when not with patient due to distancing restrictions. - A mask is optional within the hospital. Patients may have clear liquids (water, carbonated beverages, clear teas, apple juice) until 3 hours prior to surgery with a maximum of 20 ounces. - No food from midnight until time of surgery Take the following medications with a SIP of water the morning of surgery: TYLENOL IF NEEDED Medications to discontinue per physician: N/A Date to take last dose: N/A Please no make-up, nail macedonian, hairspray, perfume, deodorant, or body powder the day of surgery. No jewelry (including any body piercings) or valuables the day of surgery, leave them at home. Please take a shower or bath the night before, or the morning of, surgery with an antibacterial soap. Wear comfortable, loose fitting clothing. - Jewelry must be removed prior to entering the operating room. Rings and piercings that are not removed may be cut off. - The hospital will not accept responsibility for valuables. - Please leave all valuables, including medications, at home the day of surgery. If you are going home after surgery, a licensed flatbed truck driver must drive you home. - NO public transportation without another adult if you receive anesthesia. - We recommend that an adult stay with you for 24 hours following discharge. - We also recommend that you do not drive, make important decision, drink alcoholic beverages, or take any drugs that were not prescribed by your health care provider for at least 24 hours after your discharge time. Follow any additional instructions given to you from your surgeon. If you or anyone in your household have experienced Covid symptoms in the past week, please notify your surgeon or the nurse liaison at the phone number below for possible testing. Telephone instructions given to PT - GIANNA SIMON and asked if any additional questions and then verbalized understanding. Patient advised to call surgeon office or pre surgery nurse liaison [phone] if any additional questions.
--- NOTE | ~2022-02-27 | US_ITS ---
EXAMINATION: US guide intraoperative DATE: 02/27/2022 14:02 INDICATION: Nexplanon removal in left arm. TECHNIQUE: Multiple grayscale and Doppler ultrasound images of the left upper arm were obtained. COMPARISON: left humerus radiographs 02/15/22 FINDINGS: The subcutaneous control implant is identified in the left upper arm. IMPRESSION: 1. Subcutaneous implant identified in left upper arm. Reviewed, dictated and finalized at location A. [facility]
--- NOTE | 2022-02-27 09:11 | WPDANESEPPF ---
Anes - Initial Pre Proc Eval Procedure: Operation Date: 02/27/22 14:00 Proposed Procedures p Nexplanon Removal Left Arm - Divya Patel MD Date/Time: 02/27/22 09:11 Surgeon: Divya Patel MD Pre Op Diagnosis: nexplanon implant non palpable deep in arm Patient Data Age: 26 Gender: F Height: 1.57 m Weight: 59.9 kg Allergies Allergy/AdvReac Type Severity Reaction Status Date / Time metoclopramide AdvReac Unknown Anxiety Verified 02/27/22 12:20 prochlorperazine AdvReac Unknown Anxiety Verified 02/27/22 12:20 Home Medications Medication Instructions Recorded Confirmed Type ibuprofen 600 mg tablet 600 mg PO TID PRN pain #30 tabs 10/03/21 02/22/22 Rx acetaminophen 325 mg tablet 650 mg PO Q6H PRN Pain 02/22/22 02/22/22 History (Tylenol) Patient hx anesthesia problems: none Family hx anesthesia problems: none Results Review: All pre-operative results and documents have been reviewed as part of the pre-operative evaluation. [facility] Past Medical History Medical History (Updated 02/27/22 @ 09:56 by Divya Patel MD) Anxiety Asthma (normal spontaneous vaginal delivery) severe hyperemesis preeclampsia Surgical History Surgical History History of tympanostomy Family History Family History Father Alive and well Mother Alive and well Social History Social History Smoking packs per day: 0.5 Smoking cigarettes per day: 10.0 Years smoked: 8 Smoking pack-years: 4.00 Smoking status: Current every day smoker Tobacco type: e-cigarettes/vaping Second hand tobacco smoke exposure: Yes Smoking end date: 01/06/20 Additional smoking assessment comments: HAS BEEN SMOKING PUFF BAR SINCE NOVEMBER 2019 Alcohol intake: current Alcohol use details: 1/MONTH Substance use: current Substance use type: marijuana Other substance usage details: OCCASIONAL MARIJUANA Living arrangements: with family Gender identity (if verbalized by the patient): Female Spiritual care concerns: No Anes - Eval Final PreProcedure Day of Procedure 02/27/22 09:11 Patient weight: normal Heart: regular rate and rhythm Lungs: clear to auscultation and normal air movement Airway: Mallampati scale class II Neurological: alert and oriented Last oral intake: >/= 8 hours ASA classification: II Emergent: no Anesthetic plan: proceed Anesthesia type and monitoring: general GIVS Results Review: All pre-operative results and documents have been reviewed as part of the pre-operative evaluation. Informed Consent: The patient's anesthetic plan and its attendant risks and benefits were discussed with the patient/family/POA. Questions were solicited and answers provided to the satisfaction of the patient/family/POA.
--- NOTE | 2022-02-27 09:39 | WPDHPUPDATE1 ---
History and Physical Update Update Date/Time: 02/27/22 09:39 History and Physical has been reviewed, including an updated exam of the patient. There are NO changes in the patient's condition. Risks, benefits, and alternatives have been discussed and questions answered. Patient agrees to proceed with procedure.
--- NOTE | 2022-02-27 09:40 | PM.HPGS ---
History of Present Illness History of Present Illness Consent: Risks, benefits, and alternatives have been discussed and questions answered. Patient agrees to proceed with procedure. Chief complaint: nexplanon implant non palpable deep in arm Narrative: Aisha Cuevas is a 26 year old female presented to the office for removal of her Nexplanon device. The device was not palpable. x-ray of the arm is performed and does show the implant to be in the usual location in the medial left arm soft tissue. The patient had gained 30lb since the placement of the device. It was recommended to proceed with removal in the operating room under ultrasound guidance. Risks of infection, bleeding, injury to underlying nerves and tissue are reviewed. Review of Systems Review of Systems: not repeated day of surgery; patient states no changes in status PMFSH Past Medical History Medical History (Updated 02/27/22 @ 09:56 by Divya Patel MD) Anxiety Asthma (normal spontaneous vaginal delivery) severe hyperemesis preeclampsia Surgical History Surgical History History of tympanostomy Family History Family History Father Alive and well Mother Alive and well Social History Social History Smoking packs per day: 0.5 Smoking cigarettes per day: 10.0 Years smoked: 8 Smoking pack-years: 4.00 Smoking status: Current every day smoker Tobacco type: e-cigarettes/vaping Second hand tobacco smoke exposure: Yes Smoking end date: 01/06/20 Additional smoking assessment comments: HAS BEEN SMOKING PUFF BAR SINCE NOVEMBER 2019 Alcohol intake: current Alcohol use details: 1/MONTH Substance use: current Substance use type: marijuana Other substance usage details: OCCASIONAL MARIJUANA Living arrangements: with family Gender identity (if verbalized by the patient): Female Spiritual care concerns: No Meds Home Medications and Allergies Home Medications Medication Instructions Recorded Confirmed Type ibuprofen 600 mg tablet 600 mg PO TID PRN pain #30 tabs 10/03/21 02/22/22 Rx acetaminophen 325 mg tablet 650 mg PO Q6H PRN Pain 02/22/22 02/22/22 History (Tylenol) Allergies Allergy/AdvReac Type Severity Reaction Status Date / Time metoclopramide AdvReac Unknown Anxiety Verified 02/22/22 09:45 prochlorperazine AdvReac Unknown Anxiety Verified 02/22/22 09:45 Exam Const: General: healthy appearing and alert Orientation/consciousness: patient oriented x3 Resp: Effort & Inspection: normal respiratory effort GI: GI Palp: Yes Soft to palpation, No Tenderness to palpation present (GI) and No Palpable mass present : External Female Exam: normal external appearance Speculum Exam - Vagina: normal appearance of the vagina and normal vaginal discharge Speculum Exam - Cervix: normal appearance of the cervix Bimanual exam- vagina & uterus: uterine size normal and consistency normal Bimanual Exam- Adnexa, other: normal adnexae and No adnexal tenderness Neuro: General: patient oriented x3 Assessment and Plan Assessment and plan (1) Encounter for Nexplanon removal: Code(s): Z30.46 - Encounter for surveillance of implantable subdermal contraceptive Status: Acute Assessment and Plan: the device is nonpalpable therefore planned to remove in the operating room under ultrasound guidance
[2022-02-27 12:15] VITALS: BP 100/61; PULSE 56; RESP 16; TEMP 37.7; O2SAT 100
[2022-02-27] MEDS: ACETAMINOPHEN 500 MG TABLET 1000 MG PO (12:21)
[2022-02-27] MEDS: LACTATED RINGERS 1,000 ML 30 ML IV CONT (12:35)
[2022-02-27] MEDS: BUPIVACAINE/EPINEPHRINE 0.5% 30 ML VIAL 10 ML INFILTRATE (13:38)
--- NOTE | 2022-02-27 13:57 | W.PM.PROC2 ---
Procedure Note - Detailed Date of Procedure 02/27/22 Pre-op Diagnosis nexplanon implant non palpable Post-op Diagnosis Same Procedure Performed Excision Nexplanon under ultrasound guidance Surgeon Divya Patel MD Anesthesia MAC and Local Findings Nexplanon nonpalpable in left arm. Visible with ultrasound. The distal end is deeper than the proximal end . The proximal end is 75mm from the surface. Description of Procedure The patient is taken to the operating room and placed under anesthesia in the dorsal supine position. The left arm is prepped and draped. With sterile technique the limited radiology technician scanned the left upper arm and identified the Nexplanon. The skin over the distal end was injected with 0.5% Marcaine and incised with a scalpel. Using a small hemostat, I attempted to feel for the implant blindly based on ultrasound findings. This was not successful. The limited radiology technician scanned as I was looking for the device and the distal and incision and this was still not successful. Decision was made to make a 2nd incision at the proximal end. The skin was injected and a scalpel used to make a 1cm incision. Again under ultrasound guidance I attempted to grasp the device with a hemostat. This was successful as the device was moving as I moved my hemostat. The hemostat tip was pulled through the incision and cleaned off with a scalpel. A 2nd hemostat was then able to grasp the device and the remainder of the scar tissue cleaned off with a scalpel. The device is removed intact and discarded. The skin incisions were closed in horizontal mattress fashion of 3-0 Vicryl. Skin incisions are then covered with a Band-Aid. Estimated Blood Loss 5 Drains No Packing No Pathology None sent Complications No immediate complications Condition Stable Disposition PACU
[2022-02-27 14:00] VITALS: BP 88/53; PULSE 53; RESP 16; O2SAT 100
[2022-02-27 14:30] VITALS: BP 145/79; PULSE 97; RESP 16; O2SAT 94
== END 2022-02-27 14:55 | disposition home or self-care (01) ==
PROVIDERS: PCP Family Medicine; Visit Provider Obstetrics & Gynecology Gynecology
PROC: (CPT 11982; principal; 2022-02-27 14:00)
DX: Z30.46 Encounter for surveillance of implantable subdermal contraceptive (principal); F17.290 Nicotine dependence, other tobacco product, uncomplicated; F12.90 Cannabis use, unspecified, uncomplicated
CPT/HCPCS: 11982; 76998; A9270; J2250; J2704; J3010; J7120

== ENCOUNTER 2022-04-03 08:18 | Emergency (ER) | payer OTHER, SELFPAY ==
--- NOTE | 2022-04-03 08:27 | ED.URI ---
HPI - URI/Sore Throat General Chief Complaint: Upper Respiratory Infection Stated Complaint: Sore Throat Time Seen by Provider: 04/03/22 08:32 Source: patient, RN notes reviewed and old records reviewed Mode of arrival: ambulatory Limitations: no limitations History of Present Illness HPI Narrative: 27-year-old female presents to the [facility] with complaints of a sore throat since Sunday. Has not taken anything for her symptoms. Onset (ago): day(s) (3) Related Data Allergies Allergy/AdvReac Type Severity Reaction Status Date / Time metoclopramide AdvReac Unknown Anxiety Verified 04/03/22 08:39 prochlorperazine AdvReac Unknown Anxiety Verified 04/03/22 08:39 Review of Systems Review of Systems: All systems reviewed & are unremarkable except as noted in HPI and below Constitutional: Constitutional: Reports no additional constitutional complaints Eyes: Eyes: Reports no additional eye complaints ENT: Reports as per HPI and Reports sore throat Cardiovascular: Cardiovascular: Reports no additional cardiovascular complaints, Denies chest pain and Denies dyspnea Respiratory: Respiratory: Reports no additional respiratory complaints, Denies chest congestion, Denies cough and Denies dyspnea Gastrointestinal: Gastrointestinal: Reports no additional gastrointestinal complaints, Denies abdominal pain, Denies nausea and Denies vomiting Musculoskeletal: Musculoskeletal: Reports no additional musculoskeletal complaints Integumentary/Breasts: Skin/Breast: Reports system reviewed and no additional complaints, except as docu Neurologic: Reports system reviewed and no additional complaints, except as documented Psychiatric: Psychiatric: Reports no additional psychiatric complaints Allergic/Immunologic: Allergic/Immunologic: Reports no additional allergic/immunologic complaints PMFSH Past Medical History Medical History Anxiety Asthma (normal spontaneous vaginal delivery) severe hyperemesis preeclampsia Surgical History Surgical History History of tympanostomy Family History Family History Father Alive and well Mother Alive and well Social History Social History Smoking packs per day: 0.5 Smoking cigarettes per day: 10.0 Years smoked: 8 Smoking pack-years: 4.00 Smoking status: Current every day smoker Tobacco type: e-cigarettes/vaping Second hand tobacco smoke exposure: Yes Smoking end date: 01/06/20 Additional smoking assessment comments: HAS BEEN SMOKING PUFF BAR SINCE NOVEMBER 2019 Alcohol intake: current Alcohol use details: 1/MONTH Substance use: current Substance use type: marijuana Other substance usage details: OCCASIONAL MARIJUANA Living arrangements: with family Gender identity (if verbalized by the patient): Female Spiritual care concerns: No Comments At the time of my signature, I reviewed and agree with the nursing past medical, surgical, social, and family history. There is no relevant family history pertinent to the patient complaint. Exam Const: General: cooperative, healthy appearing, comfortable, no acute distress, well developed, alert and well nourished Nutritional Appearance: well nourished Orientation/consciousness: patient oriented x3 Limitations: no limitations HENMT: Head: normal to inspection Ears: hearing grossly normal bilaterally and external ears normal Face/Nose/Sinus: Normal external nose present, Normal nares present, Normal nasal mucous membranes and turbinates present and normal facial exam Face and sinus: normal facial exam Mouth: Yes Normal oral and palatal mucosa present, Yes lip normal and Yes moist mucous membranes Throat: posterior oropharynx normal, tonsils normal, uvula midline and postnasal drainage E
[2022-04-03 08:31] VITALS: BP 116/73; PULSE 83; RESP 16; TEMP 37.1; O2SAT 99
== END 2022-04-03 09:04 | disposition home or self-care (01) ==
PROVIDERS: Emergency Provider Nurse Practitioner; PCP Family Medicine
DX: A49.1 Streptococcal infection, unspecified site (principal); J45.909 Unspecified asthma, uncomplicated; F41.9 Anxiety disorder, unspecified; F17.290 Nicotine dependence, other tobacco product, uncomplicated
CPT/HCPCS: 87880; 99213; G0463

== ENCOUNTER 2022-11-30 08:27 | Observation (INO) | payer MEDICAID, SELFPAY ==
[2022-11-30] VITALS (7 sets, daily range): BP systolic 123–138; BP diastolic 71–83; PULSE 55–105; RESP 16; TEMP 36.2–36.8; O2SAT 97–100
--- NOTE | ~2022-11-30 | US_ITS ---
EXAMINATION: US OB <= 14 weeks fetus DATE: 12/01/2022 10:17 INDICATION: Initial ultrasound for dating of first trimester TECHNIQUE: Real-time pelvic ultrasound utilizing transabdominal probe was performed. The mary carmen milan radiologist was not present for the study. COMPARISON: None. FINDINGS: The uterus measures 8.7 x 4.7 x 6.3 cm. There is an intrauterine gestational sac. A yolk sac and fet al pole are identified. The crown rump length measures 7 mm, which correlates with an estimated gesta tional age of 6 weeks and 4 days. heart motion is identified measuring 125 beats per minute (bp m) by M-mode Doppler. The right ovary measures 2.4 x 1.7 x 1.6 cm. The left ovary measures 2.1 x 1.5 x 1.5 cm. Vascular bg w identified at both ovaries on color Doppler. There is no free fluid in the pelvis. IMPRESSION: 1. Single living fetus with heart rate of 125 bpm. 2. Gestational age by ultrasound of 6 weeks 4 day(s) +/- 4 day(s) with ultrasound estimated date of delivery (MARK ANTHONY) of 07/23/2023. Reviewed, dictated and finalized at location A. IMPRESSION: 1. Single living fetus with heart rate of 125 bpm. 2. Gestational age by ultrasound of 6 weeks 4 day(s) +/- 4 day(s) with ultraso und estimated date of delivery (MARK ANTHONY) of 07/23/2023.
--- NOTE | 2022-11-30 08:35 | PC.NURSE ---
Pt allowed up to shower while waiting to get orders.
--- NOTE | 2022-11-30 08:56 | PC.NURSE ---
Dr. Patel informed of pt's arrival at 8wks with N&V x's 4 days- worse today even with taking her Zofran. Informed of abdominal pain and occasional smear of soft stool with emesis. Denies vaginal bleeding. Orders received.
[2022-11-30] MEDS: DEXTROSE 5%/LACTATED RINGERS 1,000 ML 999 ML IV CONT (09:40)
[2022-11-30] MEDS: PROMETHAZINE HCL 25 MG/ML AMPUL 12.5 MG IV PUSH ×3 (09:45→18:52)
--- NOTE | 2022-11-30 09:45 | OBADM ---
This patient, Aisha Cuevas, admitted to the OB room 115 for observation. Patient/family oriented to hospital policies and general routines including ID bracelet, bed and alarms, visiting hours, pain management, procedures, bathroom and other care routines, personal items, smoking policy, room service/diet, and visiting hours. Patient/Family are encouraged to report perceived risks to care and to ask questions if they do not understand what they are told or what they should do.
--- NOTE | 2022-11-30 09:53 | PC.NURSE ---
Dr. Patel informed pt requesting Vistaril IM for her anxiety. Order received.
[2022-11-30 10:00] LABS: Anion Gap 10 mmol/L (8-16); Blood Urea Nitrogen 7 mg/dL (7-17); Calcium 9.5 mg/dL (8.4-10.2); Carbon Dioxide 20 mmol/L (22-30); Chloride 107 mmol/L (98-107); Estimated Glomerular Filt Rate > 60; Glucose 137 mg/dL (65-110); Potassium 3.1 mmol/L (3.4-5.0); Sodium 137 mmol/L (137-145)
[2022-11-30] MEDS: hydrOXYzine HCl 50 MG/ML VIAL 25 MG IM ×2 (10:06→19:18)
[2022-11-30] MEDS: FAMOTIDINE 20 MG/2 ML VIAL IV PUSH (10:09)
--- NOTE | 2022-11-30 10:22 | PC.NURSE ---
Dr. Patel informed of lab results. Order for KCL received.
[2022-11-30 11:24] LABS: Appearance Urine Cloudy (Clear); Bacteria Urine 2+ /hpf; Bilirubin Urine Negative (Negative); Blood Urine Negative (Negative); Color Urine Yellow (Yellow); Glucose Urine UA 3+ mg/dL (Negative); Ketones Urine 3+ mg/dL (Negative); Leukocyte Esterase Ur 1+ LEU/UL (Negative); Nitrate Urine Negative (Negative); Non Pathogenic Casts 0-2; Protein Urine Negative (Negative); RBC Urine 0-2 /hpf (0-2); Specific Grav Ur 1.021 (1.001-1.035); Squamous Epithelial Cell Urine Moderate /hpf (Few); Urobilinogen Urine 0.2 mg/dL (<2.0); WBC Urine 21-50 /hpf; pH Urine 7.5 (5.0-9.0)
[2022-11-30] MEDS: KCL 40 MEQ/D5/0.9% SOD CHL 1,000 ML 150 ML IV CONT (11:39)
[2022-11-30 11:41] LABS: Add Urine Microscopic? YES
--- NOTE | 2022-11-30 14:15 | PC.NURSE ---
Pt has had just a few ice chips. No emesis, but remains nauseated with lower abdominal pain that is worse when she is either up or moves around in bed. Pt declines trying anything else oral. IV saline locked for her to shower again.
--- NOTE | 2022-11-30 15:50 | PC.NURSE ---
Dr. Patel informed of UA results after pt was finally able to void. Additional orders received for keeping pt overnight with IV fluids and repeat labs in am.
--- NOTE | 2022-11-30 17:20 | PC.NURSE ---
IV saline locked for her to shower again.
[2022-11-30] MEDS: DEXTROSE 5%/LACTATED RINGERS 1,000 ML 200 ML IV CONT (19:22)
--- NOTE | 2022-11-30 19:31 | PC.NURSE ---
Pt reports MJ use in . Pt educated on the use on MJ during . Pt states she has been diagnosed with cannabinoid hyperemesis disorder before. Pt given education on cannabinoid hyperemesis, Pt states understanding of teaching. All assessment findings WNL. Pt hasn't had any emesis. Pt is currently sleeping in bed comfortably. Elsie Bonds RN
[2022-12-01] VITALS (8 sets, daily range): BP systolic 105–146; BP diastolic 74–89; PULSE 71–111; RESP 16–18; TEMP 37.2–37.3; O2SAT 98–100
--- NOTE | 2022-12-01 00:37 | PC.NURSE ---
Pt is up and in the shower. Pt began to feel anxious, Pt states showering helps with the anxiety. Pt request meds after shower
[2022-12-01] MEDS: hydrOXYzine HCl 50 MG/ML VIAL 25 MG IM ×4 (00:58→22:53)
[2022-12-01] MEDS: PROMETHAZINE HCL 25 MG/ML AMPUL 12.5 MG IV PUSH ×3 (01:00→18:04)
[2022-12-01] MEDS: DEXTROSE 5%/LACTATED RINGERS 1,000 ML 200 ML IV CONT (01:03)
[2022-12-01] MEDS: FAMOTIDINE 20 MG/2 ML VIAL IV PUSH ×3 (01:20→21:59)
[2022-12-01 03:27] LABS: Anion Gap 13 mmol/L (8-16); Calcium 9.4 mg/dL (8.4-10.2); Carbon Dioxide 20 mmol/L (22-30); Chloride 104 mmol/L (98-107); Estimated CRCL calculation 168 ml/min; Estimated Glomerular Filt Rate > 60; Glucose 101 mg/dL (65-110); Sodium 137 mmol/L (137-145)
[2022-12-01 03:34] LABS: Blood Urea Nitrogen < 2 mg/dL (7-17)
--- NOTE | 2022-12-01 04:10 | PC.NURSE ---
Dr. Patel called and reported a critical value of K+ 3.0. Orders received. Pt resting currently
--- NOTE | 2022-12-01 04:34 | PC.NURSE ---
Pt condition reported to Dr. Patel. Pt complains of heart palpations and restlessness. Elsie Bonds RN
[2022-12-01] MEDS: KCL 40 MEQ/0.45% NS 1,000 ML 150 ML IV CONT (04:59)
--- NOTE | 2022-12-01 07:49 | ECG_ITS ---
Measurements Intervals [place] Rate: 77 P: -12 NH: 147 QRS: -35 QRSD: 98 T: 62 QT: 405 QTc: 459 Interpretive Statements SINUS RHYTHM BORDERLINE LEFTWARD AXIS LOW QRS VOLTAGE IN THE LIMB LEADS BORDERLINE ECG NO PREVIOUS ECG AVAILABLE FOR COMPARISON Electronically Signed On 12-01-2022 15:05:08 CDT by Tim Romero M.D.
[2022-12-01] MEDS: ACETAMINOPHEN 500 MG TABLET 1000 MG PO (08:44)
--- NOTE | 2022-12-01 09:02 | PC.NURSE ---
Pt called me into the room- green liquid emesis with Tylenol tablets noted. Pt states she only took a sip of apple juice and started throwing up violently right after. States, I am so thirsty .
[2022-12-01] MEDS: ONDANSETRON INJ 4 MG/2 ML VIAL IV PUSH ×3 (09:14→20:21)
--- NOTE | 2022-12-01 09:27 | PC.NURSE ---
IV saline locked and to U/S per wheelchair.
--- NOTE | 2022-12-01 09:43 | PC.NURSE ---
Dr. Patel informed of pt's inability to tolerate a sip of apple juice, IV Zofran was given, and have now seen abnormal EKG report. Read EKG report to MD who requested consult with hospitalist.
--- NOTE | 2022-12-01 09:51 | PC.NURSE ---
Spoke with Dr. Lal (hospitalist) regarding consult for abnormal EKG- read him the report and he recommends cardiology consult.
--- NOTE | 2022-12-01 09:54 | PC.NURSE ---
Dr. Patel returned page and informed of hospitalists recommendation for cardiology consult- OK to go ahead with cardiology consult.
--- NOTE | 2022-12-01 09:58 | PC.NURSE ---
Cardiology notified of consult.
--- NOTE | 2022-12-01 10:14 | PC.NURSE ---
Pt declines trying anything oral at this time. Pt states she can't keep the pulse oximeter on.
--- NOTE | 2022-12-01 10:14 | PC.NURSE ---
Pt back from U/S. Requesting to shower before IV hooked back up. States nausea has resolved. C/O feeling like her heart is beating hard in her chest. Occasional irregular beat palpated- pulse 84. Staying in room while pt showers.
[2022-12-01] MEDS: PROMETHAZINE HCL 25 MG TABLET PO (12:43)
[2022-12-01 13:03] LABS: Appearance Urine Turbid (Clear); Bacteria Urine 4+ /hpf; Bilirubin Urine Negative (Negative); Blood Urine Trace (Negative); Color Urine Yellow (Yellow); Glucose Urine UA Negative (Negative); Ketones Urine Trace mg/dL (Negative); Leukocyte Esterase Ur 3+ LEU/UL (NEGATIVE); Nitrate Urine Negative (Negative); Non Pathogenic Casts 0-2; Protein Urine Negative (Negative); RBC Urine 0-2 /hpf (0-2); Specific Grav Ur 1.007 (1.001-1.035); Squamous Epithelial Cell Urine Many /hpf (Few); Urobilinogen Urine 0.2 mg/dL (<2.0); WBC Urine >100 /hpf (0-3); pH Urine 7.5 (5.0-9.0)
[2022-12-01 13:07] LABS: Add Urine Microscopic? YES
--- NOTE | 2022-12-01 13:40 | PC.NURSE ---
Pt has kept PO Phenergan down. Pt given popcicle to try.
[2022-12-01] MEDS: KCL 40 MEQ/D5/0.9% SOD CHL 1,000 ML 150 ML IV CONT ×2 (14:11→21:45)
--- NOTE | 2022-12-01 14:38 | PC.NURSE ---
Dr. Romero from cardiology in to see and assess pt. Reassured pt that her EKG is just a normal variation. Pt had half of her popcicle and 4 bites of peaches and then became nauseated.
--- NOTE | 2022-12-01 14:48 | PM.CNCAR ---
Assessment and Plan Assessment and plan (1) Nausea & vomiting: Qualifiers: Vomiting type: unspecified Qualified Code(s): R11.2 - Nausea with vomiting, unspecified Code(s): R11.2 - Nausea with vomiting, unspecified Status: Acute Plan This is a 27-year-old woman who is 6 early of 6 with her 2nd child who is been experiencing hyper emesis. She came into the hospital for IV fluid and treatment of hypokalemia. She has some palpitations and some very atypical sounding chest pain. Her electrocardiogram has a somewhat low QRS voltage and borderline leftward axis but no significant abnormalities. The cardiovascular physical exam is otherwise unremarkable. I do not believe we need to worry about serious problem such as pulmonary embolism since she is not tachycardic or hypotensive. Unfortunately she continues to smoke. She was counseled to stop this. I do not believe she needs any further cardiac workup while she is here. Tim Romero MD [facility] History of Present Illness History of Present Illness Consult date/time: 12/01/22 14:48 Reason For Visit: n/v Narrative: This is a 27-year-old woman I am seeing at the request of her utilization management manager because she has an abnormal electrocardiogram and she was reporting the sense of palpitations upon admission to the hospital. She is currently I understand 6 weeks with her 2nd child and has been experiencing hyper emesis. Her 1st child is now 2 years old and she had hyperemesis with this as well. She was admitted to the hospital with nausea vomiting and some hypokalemia. She reports the sense of a forceful beating of her heart that she describes as palpitations. Her electrocardiogram shows sinus rhythm with a somewhat low QRS voltage and a borderline leftward axis but otherwise an unremarkable electrocardiogram. I have been asked to see her in consultation according to the nurse because of the electrocardiographic findings. She has no history of cardiac problems before this she does state that is a pediatric patient she had a number of EKGs done by her physician but she can not really remember why that might have been the case. 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 Review of Systems Constitutional: Constitutional: Reports no additional constitutional complaints Eyes: Eyes: Reports no additional eye complaints ENT: Reports system reviewed and no additional complaints, except as documented Cardiovascular: Cardiovascular: Reports palpitations Respiratory: Respiratory: Reports no additional respiratory complaints Gastrointestinal: Gastrointestinal: Reports nausea and Reports vomiting Musculoskeletal: Musculoskeletal: Reports no additional musculoskeletal complaints Integumentary/Breasts: Skin/Breast: Reports system reviewed and no additional complaints, except as docu Neurologic: Reports system reviewed and no additional complaints, except as documented Endocrine: Endocrine: Reports no additional endocrine complaints Hematologic/Lymphatic: Hematologic/Lymphatic: Reports no additional hematologic/lymphatic complaints Allergic/Immunologic: Allergic/Immunologic: Reports no additional allergic/immunologic complaints PMFSH Past Medical History Medical History Anxiety Asthma (normal spontaneous vaginal delivery) severe hyperemesis preeclampsia Surgical History Surgical History History of tympanostomy Family History Family History Father Alive and well Mother Alive and well Social History Social History Smoking packs per day: 0.5 Smoking cigarettes per day: 10.0 Years smoked: 8 Smoking pack-years: 4.00 Smoking status: Current every day smoker
--- NOTE | 2022-12-01 15:15 | PC.NURSE ---
Nausea has resolved, but pt declines trying anything else PO at this time.
[2022-12-01 15:49] LABS: Potassium 3.3 mmol/L (3.4-5.0)
--- NOTE | 2022-12-01 16:15 | PC.NURSE ---
Pt called me into her room and she started wretching. Requesting Vistaril IM.
--- NOTE | 2022-12-01 16:59 | PC.NURSE ---
Dr. Patel called to check on pt. Informed she has tolerated a PO dose of Phenergan, but has required 2 IV doses of Zofran today. Has only had 1/2 a popcicle and 4 bites of peaches today. Has had 2 emesis. Pt had requested me to give her Vistaril IM. K+ is up to 3.3 and her ketones were down to trace in her UA today. Dr. Romero- cardiology came by and saw pt- states EKG was a normal variation and no further work-up needed at this time. Pt has slept and showered several times today. Pt just walked out into the hallway to greet her daughter who is coming onto the unit.
--- NOTE | 2022-12-01 17:18 | PC.NURSE ---
Pt drinking some of a protein smoothie- the remainder place in refrigerator for later. Pt in good spirits with daughter and boyfriend here.
--- NOTE | 2022-12-01 18:10 | PC.NURSE ---
Pt was doing well with drinking an electrolyte drink, but became nauseated after trying [address] Patel informed of this and going to look up whether scopalamine is appropriate for gestational age.
[2022-12-01] MEDS: SCOPOLAMINE 1.5 MG PATCH TRANSDERM (19:10)
--- NOTE | 2022-12-01 20:43 | PM.IMHP ---
H&P: HPI History of Present Illness Date/Time: 12/01/22 20:43 Chief Complaint: nausea and vomiting Narrative: Patient is a 27 yo at 6 4/7 by today's u/s here with hyperemesis. On admit, n/v x 12 + hours and felt heart racing and very weak. On rounds this am, feeling better but still nauseated and had not had any po intake. Today's po intake has been mininmal and nausea returned after attempting mashed potatoes. Patient with sever hyperemesis throughout last with multiple admissions. Phenergan, pepcid, and IV hydration with K+ replacement in fluids since admission. In addition, patient anxiety has increased and she has been using visteril PRN. Patient agrees to try po Lexapro for anxiety. Review of Systems Constitutional: Constitutional: Reports lethargy and Reports malaise Cardiovascular: Cardiovascular: Reports rapid heart rate (feeling heart racing and complaint of palpitations ) Gastrointestinal: Gastrointestinal: Reports nausea and Reports vomiting [facility] Past Medical History Medical History (Updated 12/01/22 @ 21:01 by Divya Patel MD) Anxiety Asthma childhood only (normal spontaneous vaginal delivery) 2020-severe hyperemesis preeclampsia Surgical History Surgical History History of tympanostomy Family History Family History Father Alive and well Mother Alive and well Social History Social History Smoking packs per day: 0.5 Smoking cigarettes per day: 10.0 Years smoked: 8 Smoking pack-years: 4.00 Smoking status: Current every day smoker Tobacco type: e-cigarettes/vaping Second hand tobacco smoke exposure: Yes Smoking end date: 01/06/20 Additional smoking assessment comments: HAS BEEN SMOKING PUFF BAR SINCE NOVEMBER 2019 Alcohol intake: current Alcohol use details: 1/MONTH Substance use: current Substance use type: marijuana Other substance usage details: OCCASIONAL MARIJUANA Living arrangements: with family Gender identity (if verbalized by the patient): Female Spiritual care concerns: No Meds Home Medications and Allergies Home Medications Medication Instructions Recorded Confirmed Type ondansetron HCl 4 mg/5 mL oral 4 mg PO Q6H PRN Nausea And Vomiting 11/30/22 11/30/22 History solution Allergies Allergy/AdvReac Type Severity Reaction Status Date / Time metoclopramide AdvReac Unknown Anxiety Verified 04/03/22 08:39 prochlorperazine AdvReac Unknown Anxiety Verified 04/03/22 08:39 Vital Signs Vital Signs - 24 hr 12/01/22 01:37 12/01/22 01:38 12/01/22 10:19 Temperature Pulse Rate 84 73 Respiratory Rate Blood Pressure 125/82 146/81 H Pulse Oximetry 99 100 Oxygen Delivery 12/01/22 12:48 12/01/22 17:03 12/01/22 18:38 Temperature Pulse Rate 77 111 H 88 Respiratory Rate Blood Pressure 124/89 105/74 128/89 Pulse Oximetry 98 98 100 Oxygen Delivery 12/01/22 10:20 12/01/22 12:48 12/01/22 17:03 Temperature 99.2 F 99.0 F 98.9 F Pulse Rate 80 111 H Respiratory Rate 16 16 18 Blood Pressure 146/81 H 124/89 105/74 Pulse Oximetry 100 100 98 Oxygen Delivery 12/01/22 19:12 Temperature 98.9 F Pulse Rate Respiratory Rate Blood Pressure Pulse Oximetry Oxygen Delivery Room Air Exam Const: General: comfortable and no acute distress Resp: Effort & Inspection: normal respiratory effort GI: Inspection: normal to inspection GI Palp: No abdominal tenderness and Yes Soft to palpation H&P: Results Labs Labs: BMP 12/01/22 12/01/22 02:33 15:22 Sodium 137 Potassium 3.0 L 3.3 L Chloride 104 Carbon Dioxide 20 L BUN < 2 L Creatinine 0.30 L Glucose 101 Calcium 9.4 Urine 12/01/22 Range/Units 12:52 Urine Color Yellow (Yellow) Urine Appearance Turbid H (Cl
[2022-12-01] MEDS: ESCITALOPRAM OXALATE 10 MG TABLET PO (21:51)
[2022-12-01] MEDS: hydrOXYzine HCL 25 MG TABLET PO (21:56)
--- NOTE | 2022-12-01 23:40 | PC.NURSE ---
Pt show signs of high anxiety. Pt could benefit a psy consult. Pt also states her insurance will not pay for a Zofran pump medication. Elsie Bonds RN
[2022-12-02] MEDS: ONDANSETRON INJ 4 MG/2 ML VIAL IV PUSH ×2 (02:07→08:06)
[2022-12-02] MEDS: PROMETHAZINE HCL 25 MG/ML AMPUL 12.5 MG IV PUSH ×2 (02:26→05:32)
[2022-12-02] MEDS: hydrOXYzine HCl 50 MG/ML VIAL 25 MG IM (03:31)
--- NOTE | 2022-12-02 04:13 | PC.NURSE ---
Pt has taken four showers though the nightshift. Pt has thrown up 3 times. Pt was able to keep any PO meds or food/fluids per shift. Pt has complained of feeling horrible per shift. Elsie Bonds RN
[2022-12-02 04:40] LABS: Potassium 3.5 mmol/L (3.4-5.0)
[2022-12-02] MEDS: KCL 40 MEQ/D5/0.9% SOD CHL 1,000 ML 150 ML IV CONT (05:20)
--- NOTE | 2022-12-02 05:42 | PC.NURSE ---
Lab result given to Dr. Patel, no change in orders.
[2022-12-02 08:00] VITALS: RESP 16; TEMP 36.9
[2022-12-02 08:06] VITALS: BP 137/86; PULSE 74; PULSE 76; O2SAT 100
--- NOTE | 2022-12-02 08:12 | PC.NURSE ---
Patient eating ice chips and requesting to be discharged. Educated patient that she needs to be tolerating PO hydration and food before leaving. Patient verbalizes understanding and is willing to try white soda and saltines if she is able to keep ice chips down. Patient states she does not want to take her hydroxyzine because it makes her drowsy and she wants to be able to drive home today. Patient showering now to wake up.
--- NOTE | 2022-12-02 08:23 | WPDANESEBPP ---
Anes - Epidural Blood Patch PN Date/Time: 12/02/22 08:23 Consent: I have discussed with the patient/family/POA, the rationale of a lumbar epidural autologous blood patch for the treatment of post-dural puncture headache (spinal headache), including associated potential risks, benefits, complications and side effects. I have also discussed more conservative treatment options such as intravenous hydration, caffeine and non-prescription analgesics. The patient/family/POA, understand(s) and wish(es) to proceed with epidural autologous blood patch as treatment for the patient's post-dural puncture headache. Time-Out: A pre-procedural Time-Out was completed immediately before starting the procedure and confirmed: Patient Identification, Site, Procedure, Patient Position and the Availability of Requisite Equipment. Epidural Insertion Note Patient position: left lateral decubitus Skin prep: chlorhexidine Needle: 18 gauge Tuohy-Schliff Technique: loss of resistance Skin anesthesia: lidocaine 1% Observations: tolerated well and other (loss of resistance 1cm to right of yesterday's needle joaquina, L2-3, catheter threaded, no CSF, catheter withdrawn tip intact, 17 cc sterile blood injected through Touhy until patient described mild pressure at low back.) Complications: none
[2022-12-02] MEDS: PROMETHAZINE HCL 25 MG TABLET PO (09:17)
[2022-12-02] MEDS: FAMOTIDINE 20 MG/2 ML VIAL IV PUSH (09:18)
[2022-12-02] MEDS: ESCITALOPRAM OXALATE 10 MG TABLET PO (09:23)
--- NOTE | 2022-12-02 09:25 | PC.NURSE ---
Patient attempted to eat dry cereal. States it is too dry to eat. Patient has menu in her room. Went over bland options to order such as oatmeal, bananas, toast. Patient states she will order food when she has more of an appetite. Keeping ice chips and water sips down. Patient took her Lexapro and Phenergan PO.
--- NOTE | 2022-12-02 10:58 | PC.NURSE ---
Dr. Patel spoke to patient about PO hydration and eating. Patient agrees to trying Ensure and a banana. If patient is able to tolerate, may discharge today. Patient up to shower again. Ensure and banana ordered.
--- NOTE | 2022-12-02 11:10 | P.PNOB_ITS ---
OB - PN: Subj Subjective Date/time seen: 12/02/22 11:10 Interval history: Patient really wants to go home but did not handle po challenge yesterday. Up x 4 in night to shower due to nausea. OB - PN: Obj Data Labs 12/02/22 04:20 Labs: Laboratory Results - last 24 hr 12/01/22 12/01/22 12/02/22 12:52 15:22 04:20 Potassium 3.3 L 3.5 Urine Color Yellow Urine Appearance Turbid H Urine pH 7.5 Ur Specific [place] 1.007 Urine Protein Negative Urine Glucose (UA) Negative Urine Ketones Trace H Ur Blood (Man) Trace Urine Nitrate Negative Urine Bilirubin Negative Urine Urobilinogen 0.2 Ur Leukocyte Esterase 3+ H Urine RBC 0-2 Urine WBC >100 H Ur Squamous Epith Cells Many H Urine Bacteria 4+ H Urine Casts 0-2 OB - PN A/P Assessment and Plan (1) 6 weeks gestation of : Code(s): Z3A.01 - Less than 8 weeks gestation of Status: Acute (2) Nausea & vomiting: Qualifiers: Vomiting type: unspecified Qualified Code(s): R11.2 - Nausea with vomiting, unspecified Code(s): R11.2 - Nausea with vomiting, unspecified Status: Acute Assessment and Plan: Will do po phenergan and zofran on schedule. Continue pepcid. Continue scopalamine patch. Trial po challenge. If tolerates, will dc home. (3) Hypokalemia: Code(s): E87.6 - Hypokalemia Status: Acute Assessment and Plan: resolved (4) Anxiety: Code(s): F41.9 - Anxiety disorder, unspecified Status: Acute Assessment and Plan: lexapro 10 mg tolerated today visteril as needed Time Spent With Patient Time: Total time spent is greater than 50% in coordination of care (as documented) at patient's floor/unit and/or counseling patient: Exam Narrative: abdomen soft, nt
--- NOTE | 2022-12-02 11:19 | PM.DS ---
DS: Admitting Diagnosis Discharge Date 12/02/22 Admitting Diagnosis IUP 7 wks nausea and vomiting DS: Discharge Diagnosis Discharge Diagnosis (1) 6 weeks gestation of : Code(s): Z3A.01 - Less than 8 weeks gestation of Status: Acute (2) Nausea & vomiting: Qualifiers: Vomiting type: unspecified Qualified Code(s): R11.2 - Nausea with vomiting, unspecified Code(s): R11.2 - Nausea with vomiting, unspecified Status: Acute (3) Anxiety: Code(s): F41.9 - Anxiety disorder, unspecified Status: Acute (4) Hypokalemia: Code(s): E87.6 - Hypokalemia Status: Acute DS: Summary Hospital Course Reason for hospitalization: severe dehydration secondary to nausea and vomiting Hospital Course: IV hydrated, antiemetics, and GI rest throughout hospitalization. PO challenge attempted several times and not successful until time of discharge. Began Lexapro 10 mg daily and visteril PRN for anxiety. Recommended stop vaping and using marijuana. Status at Discharge Functional status at discharge: independent ambulation Time Spent with Patient Time attestation: Total time spent providing and/or coordinating discharge services: Time spent: Less than 30 minutes DS: Data Data Completed and Pending Labs on day of discharge: Labs from last 24 hours 12/02/22 12/01/22 12/01/22 04:20 15:22 12:52 Potassium 3.5 3.3 L Urine Color Yellow Urine Appearance Turbid H Urine pH 7.5 Ur Specific [place] 1.007 Urine Protein Negative Urine Glucose (UA) Negative Urine Ketones Trace H Ur Blood (Man) Trace Urine Nitrate Negative Urine Bilirubin Negative Urine Urobilinogen 0.2 Ur Leukocyte Esterase 3+ H Urine RBC 0-2 Urine WBC >100 H Ur Squamous Epith Cells Many H Urine Bacteria 4+ H Urine Casts 0-2 Discharge Plan Discharge Attending physician on discharge: Divya Patel Consulting providers: Michael Garay Discharging Clinician: Divya Patel Anticipated Discharge Date/Time: 12/02/22 15:13 Patient Disposition: Home, Self-Care Activity: no preference Diet: as tolerated Discharge Instructions: OB ANTEPARTUM DISCHARGE INSTRUCTIONS This information is given to help you properly care for yourself at home after your discharge from the hospital. Follow these instructions until your doctor tells you otherwise. DIET: Drink at Least Eight 8-Ounce Glasses of Caffeine-Free Beverages Daily [place] As Tolerated BRAT Diet: Bananas, Rice, Applesauce, [place] ACTIVITY: As Tolerated RETURN TO LABOR AND DELIVERY IF YOU HAVE: Vaginal Bleeding Contractions may feel like abdominal pain, tightening, cramping, pressure, back ache, or thigh ache. FOLLOW-UP CARE: Keep Next Scheduled Appointment To see Dr. Jorge Schroeder released to patient or family? N/A Medications from home returned to patient? N/A I Acknowledge Receipt of and Understand the Above Instructions IF YOU HAVE ANY QUESTIONS REGARDING THESE INSTRUCTIONS, PLEASE CALL [phone]. IF PROBLEMS ARISE, CALL YOUR PROVIDER. IF EMERGENCY CARE IS NEEDED, [facility] EM[facility] ROOM IS AVAILABLE 24 HOURS A DAY. Stand Alone Forms: General Discharge Information Follow-up/Referrals: Divya Patel MD [Physician] - Call for Appointment Discharge Medications: New promethazine 25 mg Tablet 25 mg PO Q6H Qty: 90 3RF hydroxyzine HCl 25 mg Tablet 25 mg PO Q4H PRN (Reason: Anxiety) Qty: 60 3RF scopolamine base [Transderm-Scop] 1 mg over 3 days Patch 3 Day 1.5 mg transdermal Q72HR Qty: 10 0RF escitalopram oxalate 10 mg Tablet 10 mg PO DAILY Qty: 30 3RF ondansetron 4 mg tablet,disintegrating 4 mg PO Q8H Qty: 90 3RF famotidine [Pepcid] 40 mg tablet 40 mg PO DAILY Qty: 30 3RF Discontinued ondansetron HCl [Zofran] 4 mg/5 mL Solution 4 mg PO
--- NOTE | 2022-12-02 12:41 | PC.NURSE ---
Patient threw up Ensure. 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 Encouraged patient to try to eat banana. Patient was able to eat half a banana and states she is full and has no appetite. States if she continues to eat with no appetite, she will vomit again. Patient requests RN to ask MD if she can be discharged. States she feels she would do much better at home in a mre comfortable environment. Called Dr. Patel and updated her on patient status and request. MD gave verbal orders for discharge with clear instructions that patient must orally hydrate at home and attempt to eat. Patient must return to L&D unit if she begins vomiting again at home. Patient agrees to plan of care and has no questions at this time. Patient is showering before discharge.
== END 2022-12-02 13:02 | disposition home or self-care (01) ==
PROVIDERS: Admitting Provider Obstetrics & Gynecology Gynecology; Visit Provider Obstetrics & Gynecology Gynecology
DX: O21.0 Mild hyperemesis gravidarum (principal); O36.8910 Maternal care for other specified fetal problems, first trimester, not applicable or unspecified; R00.2 Palpitations; O99.281 Endocrine, nutritional and metabolic diseases complicating pregnancy, first trimester; E87.6 Hypokalemia; O26.891 Other specified pregnancy related conditions, first trimester; R10.9 Unspecified abdominal pain; O26.811 Pregnancy related exhaustion and fatigue, first trimester; O99.340 Other mental disorders complicating pregnancy, unspecified trimester; F41.9 Anxiety disorder, unspecified; O99.331 Smoking (tobacco) complicating pregnancy, first trimester; F17.290 Nicotine dependence, other tobacco product, uncomplicated; O99.321 Drug use complicating pregnancy, first trimester; F12.90 Cannabis use, unspecified, uncomplicated; Z3A.08 8 weeks gestation of pregnancy
CPT/HCPCS: 36415; 76801; 80048; 81001; 84132; 87086; 93005; 96361; 96365; 96366; 96372; 96375; 96376; A9270; G0378; G0379; J2405; J2550; J3410; J3480; J7121

== ENCOUNTER 2022-12-05 10:37 | Observation (INO) | payer MEDICAID, SELFPAY ==
[2022-12-05 09:52] VITALS: BP 122/86; PULSE 98
[2022-12-05 09:55] VITALS: TEMP 36.6
--- NOTE | 2022-12-05 10:00 | PC.NURSE ---
Intermittent vomiting since last PM. Recent discharge from this hospital for same. HX of hyperemesis. Concerned when she started vomiting bile. Has been unable to keep meds down and was unable to get any of the meds precribed.
[2022-12-05] MEDS: SCOPOLAMINE 1.5 MG PATCH TRANSDERM (11:30)
[2022-12-05] MEDS: ONDANSETRON HCL ODT 4 MG TABLET PO (11:32)
[2022-12-05] MEDS: DEXTROSE 5%/LACTATED RINGERS 1,000 ML 999 ML IV CONT (12:21)
[2022-12-05] MEDS: PROMETHAZINE HCL 25 MG/ML AMPUL 12.5 MG IV PUSH (12:27)
--- NOTE | 2022-12-05 12:30 | PC.NURSE ---
IV initated per IV THerapy nurse Chante Counts.
[2022-12-05 12:52] LABS: Potassium 3.6 mmol/L (3.4-5.0)
[2022-12-05] MEDS: KCL 40 MEQ/D5/0.9% SOD CHL 1,000 ML 150 ML IV CONT (13:32)
[2022-12-05] MEDS: hydrOXYzine pamoate 25 MG CAPSULE PO ×2 (13:32→19:13)
[2022-12-05] MEDS: FAMOTIDINE 20 MG TABLET PO (13:32)
[2022-12-05 13:35] VITALS: BP 116/74; PULSE 109
--- NOTE | 2022-12-05 13:59 | PC.NURSE ---
Patient has been sleeping quietly. No vomiting since first emesis on arrival. Up to void 450 cc dark yellow urine.IV infusing without difficulty.
--- NOTE | 2022-12-05 14:12 | PC.NURSE ---
UPdate to Dr. Patel per phone. Pt sleeping.
[2022-12-05 14:41] LABS: Appearance Urine Cloudy (Clear); Bacteria Urine 1+ /hpf; Bilirubin Urine Negative (Negative); Blood Urine Negative (Negative); Color Urine Yellow (Yellow); Glucose Urine UA 3+ mg/dL (Negative); Ketones Urine 3+ mg/dL (Negative); Leukocyte Esterase Ur 2+ LEU/UL (Negative); Nitrate Urine Negative (Negative); Non Pathogenic Casts 0-2; Protein Urine Negative (Negative); Specific Grav Ur 1.016 (1.001-1.035); Squamous Epithelial Cell Urine Few /hpf (Few); WBC Urine 21-50 /hpf; pH Urine 6.5 (5.0-9.0)
[2022-12-05 14:42] LABS: Add Urine Microscopic? YES
--- NOTE | 2022-12-05 17:30 | PC.NURSE ---
Update to Dr. Patel per phone. Pt continues to sleep.
[2022-12-05] MEDS: PROMETHAZINE HCL 25 MG TABLET PO (19:04)
[2022-12-05 19:06] VITALS: BP 108/75; PULSE 103
[2022-12-05 19:08] VITALS: BMI 19.5
[2022-12-05 20:02] VITALS: PULSE 100; RESP 16; O2SAT 90
--- NOTE | 2022-12-05 22:42 | PM.IMHP ---
H&P: HPI History of Present Illness Date/Time: 12/05/22 22:42 Chief Complaint: nausea and vomiting Narrative: *See H&P prior admit Patient returns with same complaints. She did not have her insurance cards so was unable to get any of her prescriptions. Severe nausea and vomiting began today. No new complaints. [facility] Past Medical History Medical History (Updated 12/05/22 @ 22:44 by Divya Patel MD) Anxiety Asthma childhood only (normal spontaneous vaginal delivery) 2020-severe hyperemesis preeclampsia Surgical History Surgical History History of tympanostomy Family History Family History Father Alive and well Mother Alive and well Social History Social History Smoking packs per day: 0.5 Smoking cigarettes per day: 10.0 Years smoked: 8 Smoking pack-years: 4.00 Smoking status: Current every day smoker Tobacco type: e-cigarettes/vaping Second hand tobacco smoke exposure: Yes Smoking end date: 01/06/20 Additional smoking assessment comments: HAS BEEN SMOKING PUFF BAR SINCE NOVEMBER 2019 Alcohol intake: current Alcohol use details: 1/MONTH Substance use: current Substance use type: marijuana Other substance usage details: OCCASIONAL MARIJUANA Living arrangements: with family Gender identity (if verbalized by the patient): Female Spiritual care concerns: No Meds Home Medications and Allergies Home Medications Medication Instructions Recorded Confirmed Type escitalopram oxalate 10 mg tablet 10 mg PO DAILY #30 tabs 12/02/22 12/05/22 Rx famotidine 40 mg tablet (Pepcid) 40 mg PO DAILY #30 tabs 12/02/22 12/05/22 Rx hydroxyzine HCl 25 mg tablet 25 mg PO Q4H PRN Anxiety #60 tabs 12/02/22 12/05/22 Rx ondansetron 4 mg disintegrating 4 mg PO Q8H #90 tabs 12/02/22 12/05/22 Rx tablet promethazine 25 mg tablet 25 mg PO Q6H #90 tabs 12/02/22 12/05/22 Rx scopolamine base 1 mg over 3 days 1.5 mg transdermal Q72HR #10 ea 12/02/22 12/05/22 Rx transdermal patch (Transderm-Scop) Allergies Allergy/AdvReac Type Severity Reaction Status Date / Time metoclopramide AdvReac Unknown Anxiety Verified 04/03/22 08:39 prochlorperazine AdvReac Unknown Anxiety Verified 04/03/22 08:39 Vital Signs Vital Signs - 24 hr 12/05/22 09:52 12/05/22 13:35 12/05/22 19:06 Temperature Pulse Rate 98 109 H 103 H Respiratory Rate Blood Pressure 122/86 116/74 108/75 Pulse Oximetry Oxygen Delivery 12/05/22 09:55 12/05/22 20:02 Temperature 98 F Pulse Rate 100 Respiratory Rate 16 Blood Pressure Pulse Oximetry 90 Oxygen Delivery Room Air Exam Narrative: Patient sleeping H&P: Results Labs Labs: BMP 12/05/22 12:36 Potassium 3.6 Urine 12/05/22 Range/Units 14:18 Urine Color Yellow (Yellow) Urine Appearance Cloudy H (Clear) Urine pH 6.5 (5.0-9.0) Ur Specific [place] 1.016 (1.001-1.035) Urine Protein Negative (Negative) mg/dL Urine Glucose (UA) 3+ H (Negative) mg/dL Assessment and Plan Assessment and plan (1) 7 weeks gestation of : Code(s): Z3A.01 - Less than 8 weeks gestation of Status: Acute (2) Hyperemesis gravidarum: Code(s): O21.0 - Mild hyperemesis gravidarum Status: Acute Assessment and Plan: dehydration with nausea and vomiting +3 ketones post 1 liter bolus restarted all dc meds bowel rest until am then attempt po challenge (3) Hypokalemia: Code(s): E87.6 - Hypokalemia Status: Acute Assessment and Plan: replace with IV fluids recheck K+ tomorrow afternoon
[2022-12-06] MEDS: KCL 40 MEQ/D5/0.9% SOD CHL 1,000 ML 150 ML IV CONT (03:00)
[2022-12-06 07:20] VITALS: BP 122/77; PULSE 112; TEMP 36.8
[2022-12-06] MEDS: ONDANSETRON HCL ODT 4 MG TABLET PO (07:25)
[2022-12-06] MEDS: PROMETHAZINE HCL 25 MG TABLET PO (07:26)
--- NOTE | 2022-12-06 07:34 | PM.OBPNVD ---
OB - PN: Subj Subjective Date/time seen: 12/06/22 07:34 Interval history: slept most of the time since admission small emesis post phenergan and states this one flavor makes her nauseated tolerating fluids through night OB - PN: Obj Data Labs 12/05/22 12:36 Labs: Laboratory Results - last 24 hr 12/05/22 12/05/22 12:36 14:18 Potassium 3.6 Urine Color Yellow Urine Appearance Cloudy H Urine pH 6.5 Ur Specific [place] 1.016 Urine Protein Negative Urine Glucose (UA) 3+ H Urine Ketones 3+ H Ur Blood (Man) Negative Urine Nitrate Negative Urine Bilirubin Negative Urine Urobilinogen 1.0 Leukocyte Esterase Rfl 2+ H Urine RBC 3-5 H Urine WBC 21-50 H Ur Squamous Epith Cells Few Urine Bacteria 1+ H Urine Casts 0-2 OB - PN A/P Assessment and Plan (1) 7 weeks gestation of : Code(s): Z3A.01 - Less than 8 weeks gestation of Status: Acute (2) Hyperemesis gravidarum: Code(s): O21.0 - Mild hyperemesis gravidarum Status: Acute Assessment and Plan: switch to phenergan suppositories dc home if pharmacy say she can get her meds today Time Spent With Patient Time: Total time spent is greater than 50% in coordination of care (as documented) at patient's floor/unit and/or counseling patient: Exam Narrative: tr-shelly lee
[2022-12-06] MEDS: PROMETHAZINE HCL 12.5 MG SUPP.RECT RECTAL (08:22)
[2022-12-06] MEDS: FAMOTIDINE 20 MG TABLET PO (08:25)
--- NOTE | 2022-12-12 08:41 | PM.OBTRLD ---
OB - Triage/Final Diagnosis Visit Information Reason for evaluation: other (hyperemesis gravidarium) Comments/Additional reasons for admission: I have assessed the risk for this patient, Aisha Cuevas, and determined that she would benefit from observation care. Evaluation Laboratory results: Laboratory Tests 12/05/22 12/05/22 12:36 14:18 Potassium 3.6 Urine Color Yellow Urine Appearance Cloudy H Urine pH 6.5 Ur Specific [place] 1.016 Urine Protein Negative Urine Glucose (UA) 3+ H Urine Ketones 3+ H Ur Blood (Man) Negative Urine Nitrate Negative Urine Bilirubin Negative Urine Urobilinogen 1.0 Leukocyte Esterase Rfl 2+ H Urine RBC 3-5 H Urine WBC 21-50 H Ur Squamous Epith Cells Few Urine Bacteria 1+ H Urine Casts 0-2
== END 2022-12-06 08:35 | disposition home or self-care (01) ==
PROVIDERS: Admitting Provider Obstetrics & Gynecology Gynecology; Visit Provider Obstetrics & Gynecology Gynecology
DX: O21.0 Mild hyperemesis gravidarum (principal); Z3A.01 Less than 8 weeks gestation of pregnancy
CPT/HCPCS: 36415; 81001; 84132; 87086; 87088; 96361; 96365; 96366; 96374; 96375; A9270; G0378; G0379; J2550; J3480; J7121

== ENCOUNTER 2022-12-11 06:32 | Observation (INO) | payer MEDICAID, SELFPAY ==
--- NOTE | 2022-12-11 06:40 | PC.NURSE ---
Pt reports throwing up several times within the last few hours. Pt states she has been able to keep down about half of what she has taken in. Pt does report feeling better than normal but just not great.
[2022-12-11] MEDS: SCOPOLAMINE 1.5 MG PATCH TRANSDERM (07:06)
[2022-12-11] MEDS: DEXTROSE 5%/LACTATED RINGERS 1,000 ML 999 ML IV CONT (07:13)
[2022-12-11 07:24] LABS: Anion Gap 11 mmol/L (8-16); Blood Urea Nitrogen 7 mg/dL (7-17); Calcium 9.6 mg/dL (8.4-10.2); Carbon Dioxide 25 mmol/L (22-30); Chloride 94 mmol/L (98-107); Estimated Glomerular Filt Rate > 60; Glucose 104 mg/dL (65-110); Potassium 3.1 mmol/L (3.4-5.0); Sodium 130 mmol/L (137-145)
[2022-12-11 07:30] VITALS: BP 122/85; PULSE 90
[2022-12-11] MEDS: KCL 40 MEQ/0.9% SOD CHL 1,000 ML 150 ML IV CONT (08:16)
[2022-12-11] MEDS: FAMOTIDINE 20 MG TABLET 40 MG PO (08:16)
[2022-12-11 08:19] VITALS: BMI 19.5
--- NOTE | 2022-12-11 12:35 | PC.NURSE ---
pt requested cranberry juice and apple juice. Pt denying nausea at this time.
[2022-12-11] MEDS: PROMETHAZINE HCL 25 MG TABLET PO (13:14)
[2022-12-11 14:54] VITALS: BP 126/78; PULSE 106
--- NOTE | 2022-12-14 08:30 | PM.OBTRLD ---
OB - Triage/Final Diagnosis Visit Information Reason for evaluation: other (hyperemesis gravidarium/ dehydration/hypokalemia) Comments/Additional reasons for admission: I have assessed the risk for this patient, Aisha Cuevas, and determined that she would benefit from observation care. Evaluation Laboratory results: Laboratory Tests 12/11/22 07:07 Sodium 130 L Potassium 3.1 L Chloride 94 L Carbon Dioxide 25 Anion Gap 11 BUN 7 D Creatinine 0.40 L Estim Creat Clear Calc Not Reportable Estimated GFR > 60 Glucose 104 Calcium 9.6
== END 2022-12-11 15:06 | disposition home or self-care (01) ==
PROVIDERS: Admitting Provider Obstetrics & Gynecology Gynecology; Visit Provider Obstetrics & Gynecology Gynecology
DX: O21.1 Hyperemesis gravidarum with metabolic disturbance (principal); E86.0 Dehydration; Z3A.08 8 weeks gestation of pregnancy
CPT/HCPCS: 36415; 80048; 96361; 96374; A9270; G0378; G0379; J7121

== ENCOUNTER 2022-12-17 13:31 | Observation (INO) | payer MEDICAID, SELFPAY ==
[2022-12-17] MEDS: DEXTROSE 5%/LACTATED RINGERS 1,000 ML 999 ML IV CONT (15:47)
[2022-12-17 15:48] LABS: Anion Gap 15 mmol/L (8-16); Blood Urea Nitrogen 8 mg/dL (7-17); Calcium 9.5 mg/dL (8.4-10.2); Carbon Dioxide 21 mmol/L (22-30); Chloride 94 mmol/L (98-107); Estimated Glomerular Filt Rate > 60; Glucose 72 mg/dL (65-110); Potassium 3.4 mmol/L (3.4-5.0); Sodium 130 mmol/L (137-145)
[2022-12-17] MEDS: PROMETHAZINE HCL 25 MG/ML AMPUL 12.5 MG IV PUSH (15:48)
--- NOTE | 2022-12-17 15:55 | PC.NURSE ---
Pt called RN to room shortly after IV bolus and phenergan initiated. States she felt like she was having an anxiety attack and wanted the phenergan stopped. She said she felt like how she does with reglan or compazine. She stated since her potassium is WNL she would like to go home after her IV bolus is finished.
--- NOTE | 2022-12-19 11:51 | PM.OBTRLD ---
OB - Triage/Final Diagnosis Visit Information Comments/Additional reasons for admission: I have assessed the risk for this patient, Aisha Cuevas, and determined that she would benefit from observation care. Evaluation Laboratory results: Laboratory Tests 12/17/22 15:32 Sodium 130 L Potassium 3.4 Chloride 94 L Carbon Dioxide 21 L Anion Gap 15 BUN 8 Creatinine 0.40 L Estim Creat Clear Calc Not Reportable Estimated GFR > 60 Glucose 72 Calcium 9.5 Final Diagnosis (1) Hyperemesis gravidarum: Code(s): O21.0 - Mild hyperemesis gravidarum Status: Acute (2) Hypokalemia: Code(s): E87.6 - Hypokalemia Status: Acute
== END 2022-12-17 17:26 | disposition home or self-care (01) ==
PROVIDERS: Admitting Provider Obstetrics & Gynecology; Visit Provider Obstetrics & Gynecology
DX: O21.0 Mild hyperemesis gravidarum (principal); O99.281 Endocrine, nutritional and metabolic diseases complicating pregnancy, first trimester; E87.6 Hypokalemia; Z3A.08 8 weeks gestation of pregnancy
CPT/HCPCS: 36415; 80048; 96374; G0378; G0379; J2550; J7121

== ENCOUNTER 2022-12-25 12:42 | Observation (INO) | payer MEDICAID, SELFPAY ==
[2022-12-25] MEDS: DEXTROSE 5%/LACTATED RINGERS 1,000 ML 999 ML IV CONT (13:56)
[2022-12-25] MEDS: ONDANSETRON INJ 4 MG/2 ML VIAL IV PUSH ×2 (13:59→17:43)
--- NOTE | 2022-12-25 14:24 | PC.NURSE ---
5647--Phone call to Dr. Patel re: pt's presence on unit and reports of being dehydrated . Orders for IVF's, IV zofran and po phenergan if pt. will take them, and for some labwork.
--- NOTE | 2022-12-25 14:26 | PC.NURSE ---
1330--Unable to obtain IV access, pt. has minimal veins. Barbara Delgado, RN notified and will
[2022-12-25 14:28] LABS: Alanine Aminotransferase 28 U/L (6-35); Albumin Level 4.2 g/dL (3.5-5.1); Alkaline Phosphatase 44 U/L (38-126); Anion Gap 10 mmol/L (8-16); Aspartate Amino Transferase 20 U/L (14-36); Bilirubin,Total 0.9 mg/dL (0.2-1.3); Blood Urea Nitrogen 3 mg/dL (7-17); Calcium 9.2 mg/dL (8.4-10.2); Carbon Dioxide 28 mmol/L (22-30); Chloride 94 mmol/L (98-107); Estimated Glomerular Filt Rate > 60; Glucose 88 mg/dL (65-110); Potassium 2.8 mmol/L (3.4-5.0); Sodium 132 mmol/L (137-145)
--- NOTE | 2022-12-25 14:47 | PC.NURSE ---
1428--Report to Dr. Patel re: lab results. Orders for potassium IV and PO.
[2022-12-25] MEDS: POTASSIUM CHLORIDE 20 MEQ ER TABLET 40 MEQ PO (15:08)
[2022-12-25] MEDS: POTASSIUM CHLORIDE INJ 40 MEQ in SODIUM CHLORIDE 0.9% IV 500 ML 130 MEQ IVPB (15:09)
[2022-12-25 15:35] LABS: Appearance Urine Turbid (Clear); Bacteria Urine None Seen /hpf; Bilirubin Urine Negative (Negative); Blood Urine Negative (Negative); Color Urine Yellow (Yellow); Glucose Urine UA 3+ mg/dL (Negative); Ketones Urine 4+ mg/dL (Negative); Leukocyte Esterase Ur Negative LEU/UL (Negative); Nitrate Urine Negative (Negative); Non Pathogenic Casts 0-2; Protein Urine Negative (Negative); RBC Urine 0-2 /hpf (0-2); Squamous Epithelial Cell Urine Few /hpf (Few); WBC Urine 0-5 /hpf
[2022-12-25 15:59] LABS: Add Urine Microscopic? YES
[2022-12-25 16:18] VITALS: BMI 16.5
[2022-12-25 17:46] VITALS: BP 120/72; PULSE 91
[2022-12-25] MEDS: DEXTROSE 5%/LACTATED RINGERS 1,000 ML 100 ML IV CONT (17:47)
[2022-12-25] MEDS: FAMOTIDINE 20 MG/2 ML VIAL IV PUSH (18:03)
--- NOTE | 2022-12-25 18:13 | PC.NURSE ---
1745--Pt. vomited 450cc liquid emesis.
--- NOTE | 2022-12-25 19:15 | PC.NURSE ---
Called Dr. Patel with pt update. Pt complaining of continued nausea. Pt requesting something more for nausea and for sleep. Orders received.
[2022-12-25] MEDS: PROMETHAZINE HCL 25 MG SUPP.RECT RECTAL (19:48)
[2022-12-25] MEDS: hydrOXYzine HCl 50 MG/ML VIAL 25 MG IM (19:53)
--- NOTE | 2022-12-26 01:00 | PC.NURSE ---
Pt sleeping. Stirred when entering room. Respirations regular and nonlabored. Tolerating PO fluids.
[2022-12-26] MEDS: DEXTROSE 5%/LACTATED RINGERS 1,000 ML 100 ML IV CONT (01:19)
--- NOTE | 2022-12-26 05:30 | PC.NURSE ---
Pt slept through night. Tolerating PO fluids.
[2022-12-26 08:23] LABS: Potassium 3.6 mmol/L (3.4-5.0)
[2022-12-26 08:27] VITALS: BP 101/58; PULSE 78; PULSE 82; O2SAT 98
[2022-12-26 08:30] VITALS: TEMP 37.1
--- NOTE | 2022-12-26 09:09 | P.PNOB_ITS ---
OB - Triage/Final Diagnosis Visit Information Date of evaluation: 12/26/22 Reason for evaluation: other (hyperemesis with hypokalemia) Comments/Additional reasons for admission: I have assessed the risk for this patient, Aisha Cuevas, and determined that she would benefit from observation care. Patient stopped all her meds and did well for a few days but N/V returned. IV hydrated, K+ replaced, and Phenergan restarted. DC home on Phenergan with PRN zofran. Plan K+ 20 meq -- Evaluation Laboratory results: Laboratory Tests 12/25/22 12/26/22 14:03 08:08 Sodium 132 L Potassium 2.8 L* 3.6 Chloride 94 L Carbon Dioxide 28 Anion Gap 10 BUN 3 L D Creatinine 0.30 L Estim Creat Clear Calc Not Reportable Estimated GFR > 60 Glucose 88 Calcium 9.2 Total Bilirubin 0.9 AST 20 ALT 28 Alkaline Phosphatase 44 Total Protein 7.0 Albumin 4.2 Urine Color Yellow Urine Appearance Turbid H Urine pH 8.0 Ur Specific [place] 1.030 Urine Protein Negative Urine Glucose (UA) 3+ H Urine Ketones 4+ H Ur Blood (Man) Negative Urine Nitrate Negative Urine Bilirubin Negative Urine Urobilinogen 1.0 Leukocyte Esterase Rfl Negative Urine RBC 0-2 Urine WBC 0-5 Ur Squamous Epith Cells Few Urine Bacteria None seen Urine Casts 0-2 Vital signs: Vital Signs - 24 hr 12/25/22 17:46 12/26/22 08:27 12/25/22 19:00 Temperature Pulse Rate 91 78 Blood Pressure 120/72 101/58 L Pulse Oximetry 98 Oxygen Delivery Room Air 12/26/22 08:30 Temperature 98.7 F Pulse Rate Blood Pressure Pulse Oximetry Oxygen Delivery
--- NOTE | 2022-12-26 09:24 | PC.NURSE ---
0900--Report to Dr. Patel re: potassium level of 3.6 and pt. wanting to go home. Orders for discharge with prescription for potassium 20meq q MWF.
--- NOTE | 2022-12-26 09:27 | PC.NURSE ---
0910--IV DC'd and DC instructions reviewed with pt. at this time, pt. verbalizes understanding.
== END 2022-12-26 09:18 | disposition home or self-care (01) ==
PROVIDERS: Admitting Provider Obstetrics & Gynecology Gynecology; Visit Provider Obstetrics & Gynecology Gynecology
DX: O21.0 Mild hyperemesis gravidarum (principal); O99.281 Endocrine, nutritional and metabolic diseases complicating pregnancy, first trimester; E87.6 Hypokalemia; Z3A.10 10 weeks gestation of pregnancy
CPT/HCPCS: 36415; 80053; 81001; 84132; 96360; 96361; 96372; 96374; 96375; 96376; A9270; G0378; G0379; J2405; J3410; J3480; J7040; J7121

== ENCOUNTER 2022-12-28 14:24 | Observation (INO) | payer MEDICAID, SELFPAY ==
--- NOTE | 2022-12-28 14:39 | PC.NURSE ---
pt presents with nausea and vomiting since this AM. Pt reports a pounding headache and feeling constipated. Pt stated that every time she attempts to poop she gets sick to her stomach and pukes bile up. Pt reports taking her prescribed medications this am including her Zofran, Phenergan and Pepcid. Pt does report taking Tylenol at 1300 but only 325mg. pt also states she dehydrated.
[2022-12-28 15:35] VITALS: BP 125/88; PULSE 95
[2022-12-28] MEDS: BISACODYL 10 MG SUPPOSITORY RECTAL ×2 (15:36→17:10)
[2022-12-28] MEDS: DEXTROSE 5%/LACTATED RINGERS 1,000 ML 999 ML IV CONT (15:38)
[2022-12-28 15:41] VITALS: BMI 16.9
[2022-12-28 15:45] LABS: Alanine Aminotransferase 24 U/L (6-35); Albumin Level 4.1 g/dL (3.5-5.1); Alkaline Phosphatase 44 U/L (38-126); Anion Gap 11 mmol/L (8-16); Aspartate Amino Transferase 17 U/L (14-36); Bilirubin,Total 0.8 mg/dL (0.2-1.3); Blood Urea Nitrogen 2 mg/dL (7-17); Calcium 9.1 mg/dL (8.4-10.2); Carbon Dioxide 22 mmol/L (22-30); Chloride 102 mmol/L (98-107); Estimated CRCL calculation 148 ml/min; Estimated Glomerular Filt Rate > 60; Glucose 93 mg/dL (65-110); Potassium 3.3 mmol/L (3.4-5.0); Sodium 135 mmol/L (137-145)
--- NOTE | 2022-12-28 16:17 | PC.NURSE ---
Dr. Fields notified of pt lab results. Pt requesting to not take her Phenergan IV and would prefer it as a suppository or by mouth. Order received for 12.5 Phenergan PO. Repeat Dulcolax suppository in 1 hour if no result from the 1st suppository.
[2022-12-28] MEDS: PROMETHAZINE HCL 12.5 MG TABLET PO (16:44)
--- NOTE | 2022-12-28 17:25 | PC.NURSE ---
Pt has small about 1 inch in length stool.
--- NOTE | 2022-12-28 17:35 | PC.NURSE ---
Dr. Fields notified of pt still feeling crappy. Pt requesting IV zofran and more IV fluids stating that she feels dehydrated. Orders recevied from Dr. Fields for 125ml/hr D5LR, 4mg IV zofran and to send a Urine to check for ketones.
[2022-12-28] MEDS: DEXTROSE 5%/LACTATED RINGERS 1,000 ML 125 ML IV CONT (17:48)
[2022-12-28] MEDS: ONDANSETRON INJ 4 MG/2 ML VIAL IV PUSH (17:49)
[2022-12-28 18:14] VITALS: TEMP 37.1
[2022-12-28 19:29] LABS: Appearance Urine Cloudy (Clear); Bacteria Urine Rare /hpf; Bilirubin Urine Negative (Negative); Blood Urine Negative (Negative); Color Urine Yellow (Yellow); Glucose Urine UA Trace mg/dL (Negative); Ketones Urine Negative (Negative); Leukocyte Esterase Ur Negative LEU/UL (NEGATIVE); Need Manual Microscopic Reviewed; Nitrate Urine Negative (Negative); Non Pathogenic Casts 0-2; Protein Urine Negative (Negative); RBC Urine 0-2 /hpf (0-2); Specific Grav Ur 1.003 (1.001-1.035); Squamous Epithelial Cell Urine Moderate /hpf (Few); Urobilinogen Urine 0.2 mg/dL (<2.0)
[2022-12-28] MEDS: diphenhydrAMINE HCl INJ 50 MG/ML VIAL IV PUSH (19:29)
[2022-12-28 19:30] LABS: Add Urine Microscopic? YES
[2022-12-28 23:13] VITALS: TEMP 36.9
[2022-12-29] MEDS: DEXTROSE 5%/LACTATED RINGERS 1,000 ML 125 ML IV CONT (06:57)
[2022-12-29] MEDS: PROMETHAZINE HCL 12.5 MG SUPP.RECT RECTAL (06:57)
--- NOTE | 2022-12-29 07:07 | PC.NURSE ---
0700--Pt. given phenergan suppository to self administer per pt. request. No emesis noted at this time. Pt. also requesting water to drink stating that she hasn't drank anything in 12hrs. Pt. then up to shower, IV to saline lock at this time per pt. request.
--- NOTE | 2022-12-29 07:39 | PC.NURSE ---
0735--Pt. returned from shower and requesting IV zofran. IVF restarted at this time, distal occlusion noted. Attempt to flush IV, noted to be infiltrated and swollen. Will attempt to restart IV at this time.
[2022-12-29] MEDS: ONDANSETRON INJ 4 MG/2 ML VIAL IV PUSH (07:53)
--- NOTE | 2022-12-29 10:06 | PM.IMHP ---
H&P: HPI History of Present Illness Date/Time: 12/29/22 10:06 Chief Complaint: Nausea and vomiting Narrative: Patient with history of hyperemesis presents with c/o persistent nausea and vomiting resistant to oral medication. Unable to keep down foods. She also constipation. Review of Systems Review of Systems: All systems reviewed & are unremarkable except as noted in HPI and below Constitutional: Constitutional: Reports no additional constitutional complaints and Denies headache(s) Eyes: Eyes: Denies spots in vision ENT: Reports system reviewed and no additional complaints, except as documented and Denies headache(s) Cardiovascular: Cardiovascular: Denies chest pain and Denies dyspnea Respiratory: Respiratory: Denies dyspnea Genitourinary: Genitourinary: Reports amenorrhea Musculoskeletal: Musculoskeletal: Reports no additional musculoskeletal complaints Psychiatric: Psychiatric: Reports no additional psychiatric complaints PMFSH Past Medical History Medical History Anxiety Asthma childhood only (normal spontaneous vaginal delivery) 2020-severe hyperemesis preeclampsia Surgical History Surgical History History of tympanostomy Family History Family History Father Alive and well Mother Alive and well Social History Social History Smoking packs per day: 0.5 Smoking cigarettes per day: 10.0 Years smoked: 8 Smoking pack-years: 4.00 Smoking status: Current every day smoker Tobacco type: e-cigarettes/vaping Second hand tobacco smoke exposure: Yes Smoking end date: 01/06/20 Additional smoking assessment comments: HAS BEEN SMOKING PUFF BAR SINCE NOVEMBER 2019 Alcohol intake: current Alcohol use details: 1/MONTH Substance use: current Substance use type: marijuana Other substance usage details: OCCASIONAL MARIJUANA Living arrangements: with family Gender identity (if verbalized by the patient): Female Spiritual care concerns: No Meds Home Medications and Allergies Home Medications Medication Instructions Recorded Confirmed Type escitalopram oxalate 10 mg tablet 10 mg PO DAILY #30 tabs 12/02/22 12/05/22 Rx famotidine 40 mg tablet (Pepcid) 40 mg PO DAILY #30 tabs 12/02/22 12/05/22 Rx hydroxyzine HCl 25 mg tablet 25 mg PO Q4H PRN Anxiety #60 tabs 12/02/22 12/05/22 Rx ondansetron 4 mg disintegrating 4 mg PO Q8H #90 tabs 12/02/22 12/05/22 Rx tablet promethazine 12.5 mg rectal 12.5 mg RECTAL Q6H PRN Nausea #30 12/06/22 Rx suppository (Promethegan) ea potassium chloride 20 mEq See Rx Instructions .Route 12/26/22 Rx tablet,extended release .COMPLEX 30 days #12 tabs Allergies Allergy/AdvReac Type Severity Reaction Status Date / Time metoclopramide AdvReac Unknown Anxiety Verified 04/03/22 08:39 prochlorperazine AdvReac Unknown Verified 12/28/22 16:04 [From Compazine] Vital Signs Vital Signs - 24 hr 12/28/22 15:35 12/28/22 18:14 12/28/22 23:13 Temperature 98.8 F 98.4 F Pulse Rate 95 Blood Pressure 125/88 Exam Const: General: no acute distress Eyes: General: appearance normal, both eyes and all related structures Resp: Effort & Inspection: normal respiratory effort Cardio: Rate: regular rate GI: Other: Gravid no fundal tenderness no right upper quadrant pain Skin: General skin exam: no rashes or lesions noted Neuro: Cognition (Neuro): normal cognition Extrem: General: normal to inspection Psych: Mental Status: mental status grossly normal H&P: Results Labs Labs: BMP 12/28/22 15:30 Sodium 135 L Potassium 3.3 L Chloride 102 Carbon Dioxide 22 BUN 2 L Creatinine 0.30 L Glucose 93 Calcium 9.1 Liver Function 12/28/22 Range/Units 15:30
[2022-12-29 10:21] LABS: Potassium 3.6 mmol/L (3.4-5.0)
--- NOTE | 2022-12-29 10:34 | PC.NURSE ---
1020--Potassium level 3.6. Pt. requesting to go home. Lab results called to Dr. Fields, orders to DC home.
--- NOTE | 2022-12-29 10:35 | PC.NURSE ---
1030--IV DC'jeffrey and DC paperwork discussed and given to pt. at this time. Pt. arranging for a ride home and wants to get in the shower while waiting.
--- NOTE | 2023-01-15 11:19 | P.PNOB_ITS ---
OB - Triage/Final Diagnosis Visit Information Comments/Additional reasons for admission: I have assessed the risk for this patient, Aisha Cuevas, and determined that she would benefit from observation care. Evaluation Laboratory results: Laboratory Tests 12/28/22 12/28/22 12/29/22 15:30 17:44 10:03 Sodium 135 L Potassium 3.3 L 3.6 Chloride 102 Carbon Dioxide 22 Anion Gap 11 BUN 2 L Creatinine 0.30 L Estim Creat Clear Calc 148 Estimated GFR > 60 Glucose 93 Calcium 9.1 Total Bilirubin 0.8 AST 17 ALT 24 Alkaline Phosphatase 44 Total Protein 7.0 Albumin 4.1 Urine Color Yellow Urine Appearance Cloudy H Urine pH 8.0 Ur Specific [place] 1.003 Urine Protein Negative Urine Glucose (UA) Trace H Urine Ketones Negative Ur Blood (Man) Negative Urine Nitrate Negative Urine Bilirubin Negative Urine Urobilinogen 0.2 Ur Leukocyte Esterase Negative Add Ur Microanalysis Reviewed Urine RBC 0-2 Urine WBC 11-20 H Ur Squamous Epith Cells Moderate Urine Bacteria Rare Urine Casts 0-2 Final Diagnosis (1) Hyperemesis gravidarum: Code(s): O21.0 - Mild hyperemesis gravidarum Status: Acute
== END 2022-12-29 10:54 | disposition home or self-care (01) ==
PROVIDERS: Admitting Provider Obstetrics & Gynecology; Visit Provider Obstetrics & Gynecology
DX: O21.0 Mild hyperemesis gravidarum (principal); O99.611 Diseases of the digestive system complicating pregnancy, first trimester; K59.00 Constipation, unspecified; O99.340 Other mental disorders complicating pregnancy, unspecified trimester; F41.9 Anxiety disorder, unspecified; O99.331 Smoking (tobacco) complicating pregnancy, first trimester; F17.290 Nicotine dependence, other tobacco product, uncomplicated; O99.320 Drug use complicating pregnancy, unspecified trimester; F12.90 Cannabis use, unspecified, uncomplicated; Z3A.10 10 weeks gestation of pregnancy
CPT/HCPCS: 36415; 80053; 81001; 84132; 96361; 96374; 96375; A9270; G0378; G0379; J1200; J2405; J3411; J3475; J3480; J7121

== ENCOUNTER 2023-01-01 19:54 | Observation (INO) | payer MEDICAID, SELFPAY ==
[2023-01-01] MEDS: ONDANSETRON HCL ODT 4 MG TABLET PO (21:30)
[2023-01-01] MEDS: FAMOTIDINE 20 MG TABLET PO (21:30)
[2023-01-01 21:44] LABS: Basophils Percent Auto 0.3 % (0.2-1.2); Eosinophils Percent Auto 0.3 % (0-4.4); Hemoglobin 12.4 g/dL (12.0-15.0); Immature Granulocyte Absolute 0.01 K/mm3 (0.00-0.031); Immature Granulocyte Percent A 0.1 % (0-0.5); Lymphocytes Absolute Auto 1.62 K/mm3 (0.9-3.2); Lymphocytes Percent Auto 22.9 % (18.3-44.2); Mean Corpuscular HGB Conc 33.5 g/dl (32-36); Mean Corpuscular Hemoglobin 30.8 pg (26-34); Mean Corpuscular Volume 91.8 fl (80-100); Mean Platelet Volume 11.7 fl (7.4-10.4); Monocytes Absolute Auto 0.6 K/mm3 (0.1-0.6); Monocytes Percent Auto 8.6 % (2.6-8.5); Neutrophils Absolute Auto 4.8 K/mm3 (1.3-6.7); Neutrophils Percent Auto 67.8 % (45.5-73.1); Platelet Count Result 249 k/mm3 (150-375); Red Blood Count 4.03 M/mm3 (4.2-5.4); Red Cell Distribution Width 12.1 % (11.5-14.5); White Blood Count 7.1 K/mm3 (4.5-10.0)
[2023-01-01 21:54] LABS: Alanine Aminotransferase 19 U/L (6-35); Albumin Level 4.1 g/dL (3.5-5.1); Alkaline Phosphatase 42 U/L (38-126); Anion Gap 8 mmol/L (8-16); Aspartate Amino Transferase 18 U/L (14-36); Bilirubin,Total 0.9 mg/dL (0.2-1.3); Blood Urea Nitrogen 2 mg/dL (7-17); Calcium 9.2 mg/dL (8.4-10.2); Carbon Dioxide 28 mmol/L (22-30); Chloride 98 mmol/L (98-107); Estimated Glomerular Filt Rate > 60; Glucose 85 mg/dL (65-110); Potassium 3.4 mmol/L (3.4-5.0); Sodium 134 mmol/L (137-145)
[2023-01-01 22:12] VITALS: BP 107/65; PULSE 78
[2023-01-01] MEDS: PROMETHAZINE HCL 25 MG SUPP.RECT RECTAL (22:20)
--- NOTE | 2023-01-02 01:20 | PC.NURSE ---
Pt sleeping. Aroused with touch. Pt states that she is still nauseous. Report given to Martina Day CNM.
--- NOTE | 2023-01-02 01:22 | PM.OBTRLD ---
OB - Triage/Final Diagnosis Visit Information Date of evaluation: 01/02/23 Reason for evaluation: other (Nausea and vomiting) Comments/Additional reasons for admission: I have assessed the risk for this patient, Aisha Cuevas, and determined that she would benefit from observation care. Evaluation Laboratory results: Laboratory Tests 01/01/23 21:31 WBC 7.1 RBC 4.03 L Hgb 12.4 Hct 37.0 MCV 91.8 MCH 30.8 MCHC 33.5 RDW 12.1 Plt Count 249 MPV 11.7 H Immature Gran % (Auto) 0.1 Neut % (Auto) 67.8 Lymph % (Auto) 22.9 [place] % (Auto) 8.6 H Eos % (Auto) 0.3 Baso % (Auto) 0.3 Lymph # (Auto) 1.62 [place] # (Auto) 0.6 Eos # (Auto) 0.0 Baso # (Auto) 0.0 Abs Immat Gran (auto) 0.01 Absolute Neuts (auto) 4.8 Absolute Nucleated RBC 0.0 Nucleated RBC % 0.0 Sodium 134 L Potassium 3.4 Chloride 98 Carbon Dioxide 28 Anion Gap 8 BUN 2 L Creatinine 0.40 L Estim Creat Clear Calc Not Reportable Estimated GFR > 60 Glucose 85 Calcium 9.2 Total Bilirubin 0.9 AST 18 ALT 19 Alkaline Phosphatase 42 Total Protein 7.0 Albumin 4.1 Vital signs: Vital Signs - 24 hr 01/01/23 22:12 Pulse Rate 78 Blood Pressure 107/65 Comments: Pt reports still using marijuana frequently. 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 Discussed extensively with pt and recommend complete cessation. Pt states she has not used recently and that she is going to be sick the whole time she is . Discussed that each is different and sx may improve after the first trimester. Pt adamant that she will not get better. Informed pt that she is able to be discharged due to lack of vomiting and stable labs. Pt reports not having a ride home and will not until the morning.
--- NOTE | 2023-01-02 01:30 | PC.NURSE ---
Martina Day CNM on unit. Discussed plan of care with pt. Pt does not have a ride at this time to D/C home.
--- NOTE | 2023-01-02 02:08 | PC.NURSE ---
Pt left from hospital without telling anyone. Pt seen walking out the door.
== END 2023-01-02 02:08 | disposition left against medical advice (07) ==
LOC: ANHOBPP 19:59
PROVIDERS: Admitting Provider Obstetrics & Gynecology Gynecology; Visit Provider Obstetrics & Gynecology Gynecology
DX: O21.9 Vomiting of pregnancy, unspecified (principal); O99.321 Drug use complicating pregnancy, first trimester; F12.90 Cannabis use, unspecified, uncomplicated; Z3A.11 11 weeks gestation of pregnancy
CPT/HCPCS: 36415; 80053; 85025; A9270; G0378; G0379

== ENCOUNTER 2023-01-03 22:58 | Observation (INO) | payer MEDICAID, SELFPAY ==
--- NOTE | 2023-01-03 23:12 | PC.NURSE ---
Called Martina Day CNM with pt status. Pt admitted with complaints of nausea and vomiting. Pt states that she hasn't been able to keep anything down all day and was unable to take her meds today. Orders received.
[2023-01-03 23:30] VITALS: BMI 16.9
[2023-01-03] MEDS: DEXTROSE 5%/LACTATED RINGERS 1,000 ML 375 ML IV CONT (23:53)
[2023-01-03] MEDS: LACTATED RINGERS 1,000 ML 125 ML IV CONT (23:54)
[2023-01-03] MEDS: ONDANSETRON INJ 4 MG/2 ML VIAL IV PUSH (23:54)
[2023-01-03] MEDS: FAMOTIDINE 20 MG/2 ML VIAL IV PUSH (23:54)
[2023-01-03] MEDS: PROMETHAZINE HCL 25 MG SUPP.RECT RECTAL (23:57)
[2023-01-04] VITALS (7 sets, daily range): BP systolic 87–121; BP diastolic 50–80; PULSE 73–85; RESP 16; TEMP 36.5–37.3
--- NOTE | 2023-01-04 00:13 | PC.NURSE ---
Called Martina Day CNM. Pt requesting Benadryl to help her sleep. Orders received.
[2023-01-04] MEDS: diphenhydrAMINE HCl INJ 50 MG/ML VIAL 25 MG IV PUSH (00:22)
[2023-01-04 00:27] LABS: Alanine Aminotransferase 45 U/L (6-35); Albumin Level 4.3 g/dL (3.5-5.1); Alkaline Phosphatase 52 U/L (38-126); Anion Gap 16 mmol/L (8-16); Appearance Urine Turbid (Clear); Aspartate Amino Transferase 30 U/L (14-36); Bacteria Urine 1+ /hpf; Bilirubin Urine Negative (Negative); Bilirubin,Total 1.4 mg/dL (0.2-1.3); Blood Urea Nitrogen 5 mg/dL (7-17); Blood Urine Negative (Negative); Calcium 9.2 mg/dL (8.4-10.2); Carbon Dioxide 18 mmol/L (22-30); Chloride 95 mmol/L (98-107); Color Urine Dark Yellow (Yellow); Estimated Glomerular Filt Rate > 60; Glucose 78 mg/dL (65-110); Glucose Urine UA Negative (Negative); Ketones Urine 4+ mg/dL (Negative); Leukocyte Esterase Ur Trace LEU/UL (NEGATIVE); Mucus Urine Present /lpf; Nitrate Urine Negative (Negative); Non Pathogenic Casts 0-2; Protein Urine 1+ mg/dL (Negative); Sodium 129 mmol/L (137-145); Specific Grav Ur 1.026 (1.001-1.035); Squamous Epithelial Cell Urine Many /hpf (Few); WBC Urine 21-50 /hpf (0-3)
[2023-01-04 00:34] LABS: Amphetamine Screen Urine Negative (Negative); Barbiturate Screen Urine Negative (Negative); Benzodiazepines Screen Urine Negative (Negative); Cannabinoid Screen Urine Positive (Negative); Cocaine Screen Urine Negative (Negative); Methadone Screen Urine Negative (Negative); Opiate Screen Urine Negative (Negative); Phencyclidine Screen Urine Negative (Negative)
[2023-01-04 00:36] LABS: Add Urine Microscopic? YES
[2023-01-04] MEDS: POTASSIUM CHLORIDE INJ 40 MEQ in SODIUM CHLORIDE 0.9% IV 500 ML 130 MEQ IVPB (00:59)
[2023-01-04] MEDS: ONDANSETRON INJ 4 MG/2 ML VIAL IV PUSH ×4 (04:26→16:59)
[2023-01-04] MEDS: PROMETHAZINE HCL 25 MG SUPP.RECT RECTAL ×3 (04:48→14:42)
[2023-01-04] MEDS: DEXTROSE 5%/LACTATED RINGERS 1,000 ML 375 ML IV CONT (06:52)
--- NOTE | 2023-01-04 06:52 | PC.NURSE ---
Pt still sleeping. New bag of IV fluids hung.
--- NOTE | 2023-01-04 07:23 | PC.NURSE ---
Dr. Patel on unit and informed pt still sleeping. Informed MD that pt had an emesis shortly after arrival to unit and none since. Pt has been able to get some sleep. Reviewed lab results with MD. Order received to change IV fluids.
[2023-01-04] MEDS: DEXTROSE 5%/0.9% SOD CHL 1,000 ML 500 ML IV CONT ×2 (07:44→10:19)
--- NOTE | 2023-01-04 07:55 | PC.NURSE ---
Dr. Patel in to see pt and discuss plan of care.
--- NOTE | 2023-01-04 07:58 | PM.OBTRLD ---
OB - Triage/Final Diagnosis Visit Information Date of evaluation: 01/04/23 Reason for evaluation: other (hyperemesis) Comments/Additional reasons for admission: I have assessed the risk for this patient, Aisha Cuevas, and determined that she would benefit from observation care. Did well until yesterday am when could not keep po meds down. Phenergan supp. prior auth pending. Feels better this am post iv fluids. Sodium and potassium low. Repeat BMP this am after current liter. Recheck urine. Has most med refills but need po phenergan 12.5 RF. Evaluation Laboratory results: Laboratory Tests 01/04/23 00:00 Sodium 129 L Potassium 3.0 L Chloride 95 L Carbon Dioxide 18 L Anion Gap 16 BUN 5 L Creatinine 0.30 L Estim Creat Clear Calc Not Reportable Estimated GFR > 60 Glucose 78 Calcium 9.2 Total Bilirubin 1.4 H AST 30 ALT 45 H Alkaline Phosphatase 52 Total Protein 7.0 Albumin 4.3 Urine Color Dark yellow Urine Appearance Turbid H Urine pH 6.0 Ur Specific [place] 1.026 Urine Protein 1+ H Urine Glucose (UA) Negative Urine Ketones 4+ H Ur Blood (Man) Negative Urine Nitrate Negative Urine Bilirubin Negative Urine Urobilinogen 1.0 Ur Leukocyte Esterase Trace H Urine RBC 6-10 H Urine WBC 21-50 Ur Squamous Epith Cells Many H Urine Bacteria 1+ H Urine Casts 0-2 Urine Mucus Present Urine Opiates Screen Negative Urine Methadone Screen Negative Ur Barbiturates Screen Negative Ur Phencyclidine Scrn Negative Ur Amphetamine Screen Negative U Benzodiazepines Scrn Negative Urine Cocaine Screen Negative U Cannabinoids Screen Positive A Vital signs: Vital Signs - 24 hr 01/04/23 00:06 01/04/23 00:26 01/03/23 23:30 Temperature 99.1 F Pulse Rate 82 Blood Pressure 105/68 Oxygen Delivery Room Air
--- NOTE | 2023-01-04 08:28 | PC.NURSE ---
Pt states the water she drank is sitting heavy in her stomach. Zofran given. IV saline locked for pt to shower.
--- NOTE | 2023-01-04 09:04 | PC.NURSE ---
Pt done in shower and IV fluids resumed. Called pharmacy to send more Phenergan suppositories.
[2023-01-04 10:39] LABS: Appearance Urine Clear (Clear); Bilirubin Urine Negative (Negative); Blood Urine Negative (Negative); Color Urine Yellow (Yellow); Glucose Urine UA 2+ mg/dL (Negative); Ketones Urine Negative (Negative); Leukocyte Esterase Ur Negative LEU/UL (NEGATIVE); Nitrate Urine Negative (Negative); Protein Urine Negative (Negative); Specific Grav Ur 1.011 (1.001-1.035); pH Urine 7.5 (5.0-9.0)
[2023-01-04 10:40] LABS: Add Urine Microscopic? NO
[2023-01-04 10:50] LABS: Anion Gap 5 mmol/L (8-16); Calcium 7.6 mg/dL (8.4-10.2); Carbon Dioxide 22 mmol/L (22-30); Chloride 102 mmol/L (98-107); Estimated CRCL calculation 148 ml/min; Estimated Glomerular Filt Rate > 60; Glucose 164 mg/dL (65-110); Potassium 3.3 mmol/L (3.4-5.0); Sodium 129 mmol/L (137-145)
[2023-01-04 10:56] LABS: Blood Urea Nitrogen < 2 mg/dL (7-17)
--- NOTE | 2023-01-04 11:12 | PC.NURSE ---
Dr. Patel informed of UA and BMP results. Informed pt feels bloated. Pt states she had some flatus last night, but none so far today. Bowel sounds are hypoactive in upper quadrants especially right; active in lower quadrants. Pt states her last BM was 6 days ago when she passed a small turd and has only passed a total of 2 small turds since her hyperemesis started. Informed pt received 2 suppositories when she was here on giving and had that small BM the next day. Order received for Videojug.
--- NOTE | 2023-01-04 12:28 | PC.NURSE ---
Called Dr. Patel for new IV order.
[2023-01-04] MEDS: KCL 40 MEQ/D5/0.9% SOD CHL 1,000 ML 150 ML IV CONT (12:58)
[2023-01-04] MEDS: FAMOTIDINE 20 MG/2 ML VIAL IV PUSH (13:01)
--- NOTE | 2023-01-04 14:47 | PC.NURSE ---
Dr. Patel returned page and informed pt c/o burning in arm with KCL even though it is only 1/2 the strength of a KCL netta, pt states she usually has other fluids running to further dilute the KCL. Order received to add NS at 100 ml/hr to run along with the D5NS w 40 KCL at 150 ml/hr totaling 250 ml/hr for IV fluids.
[2023-01-04] MEDS: SODIUM CHLORIDE 0.9% IV 1,000 ML 100 ML IV CONT (15:18)
--- NOTE | 2023-01-04 15:30 | PC.NURSE ---
IV saline locked for her to shower.
--- NOTE | 2023-01-04 15:58 | PC.NURSE ---
Pt out of shower and IV fluids resumed. Pt states she had a small liquid stool while in the bathroom.
--- NOTE | 2023-01-04 16:12 | PC.NURSE ---
Dr. Patel returned page and informed pt still c/o feeling bloated, bowel sounds are now almost hyperactive. Explained to pt that the enema helped her to have a BM and now everything is just starting to move through her intestines. Informed MD of pt meal she has kept down so far. OK to give Mylicon after pt's next dose of Zofran. If pt keeps meal down, OK to discharge to home.
--- NOTE | 2023-01-04 17:00 | PC.NURSE ---
Pt informed that Dr. Patel stated that if her food stayed down she could be discharged to home. Pt states her upper abdomen hurts too much to go home. States it is improving. Currently rates her pain a 6; states it was a 10 earlier. Pt is dozing with the lights off in room. Pt had another small very soft stool.
--- NOTE | 2023-01-04 17:50 | PC.NURSE ---
Pt called me into her room stating her abdominal pain is gone and she would like to go home now.
== END 2023-01-04 18:13 | disposition home or self-care (01) ==
PROVIDERS: Advanced Practice Midwife; Admitting Provider Obstetrics & Gynecology Gynecology; Visit Provider Obstetrics & Gynecology Gynecology
DX: O21.0 Mild hyperemesis gravidarum (principal); O99.281 Endocrine, nutritional and metabolic diseases complicating pregnancy, first trimester; E87.1 Hypo-osmolality and hyponatremia; E87.6 Hypokalemia; Z3A.11 11 weeks gestation of pregnancy
CPT/HCPCS: 36415; 80048; 80053; 80307; 81001; 81003; 87086; 96361; 96365; 96366; 96375; A9270; G0378; G0379; J1200; J2405; J3480; J7030; J7040; J7042; J7120; J7121

== ENCOUNTER 2023-01-18 12:51 | Observation (INO) | payer OTHER, SELFPAY ==
[2023-01-18 13:02] VITALS: BP 115/70; PULSE 87
[2023-01-18 13:03] VITALS: BP 117/71; PULSE 94
[2023-01-18 13:15] VITALS: BP 108/63; PULSE 88
[2023-01-18 13:18] VITALS: BMI 18.3
[2023-01-18 13:30] VITALS: BP 113/62; PULSE 81
[2023-01-18] MEDS: ACETAMINOPHEN/BUTALBITAL/CAFFEINE 325-50-40 MG TABLET (FIORICET) 2 TAB PO (13:30)
--- NOTE | 2023-01-18 14:56 | PC.NURSE ---
Report to Dr. Patel re: h/a got worse after fiorcet. Orders for ibuprofen 800mg p.o. X1.
--- NOTE | 2023-01-18 14:57 | PC.NURSE ---
1315--Report to Dr. Patel re: h/a X1 week, lightheaded when getting up to standing position, BP sitting and standing. Orders for Fiorcet 2tabs p.o. at this time.
[2023-01-18] MEDS: IBUPROFEN 400 MG TABLET 800 MG PO (15:04)
--- NOTE | 2023-01-18 15:53 | PCCCNOTE ---
Addendum entered by SLADE Metcalf 01/19/23 07:52: Substance abuse resources offered to pt.; pt. denies need and handed them back to CC. Original Note: Recvd notification of high score on OB Substance Abuse Screening. Met with pt., who had mother in law at bedside. Pt. denies substance use during and states last use was 11/24/22. Pt. reports her parents, peers, partner, and past are all accurate yes responses. Pt. states response should have been no, as she denies use during . Pt. frustrated with CC. MARIA M vázquez.
--- NOTE | 2023-01-18 17:04 | PC.NURSE ---
1639--Report to Dr. Patel that pt's h/a is gone and she wants to go home. Orders to DC home with instructions that she may take ibuprofen at the onset of h/a up until 32 weeks.
--- NOTE | 2023-01-19 09:29 | PM.OBTRLD ---
OB - Triage/Final Diagnosis Visit Information Reason for evaluation: other (headache) Comments/Additional reasons for admission: I have assessed the risk for this patient, Aisha Cuevas, and determined that she would benefit from observation care. Evaluation Vital signs: Vital Signs - 24 hr 01/18/23 13:02 01/18/23 13:03 01/18/23 13:15 Pulse Rate 87 94 88 Blood Pressure 115/70 117/71 108/63 01/18/23 13:30 Pulse Rate 81 Blood Pressure 113/62
== END 2023-01-18 17:03 | disposition home or self-care (01) ==
PROVIDERS: Admitting Provider Obstetrics & Gynecology Gynecology; Visit Provider Obstetrics & Gynecology Gynecology
DX: O99.351 Diseases of the nervous system complicating pregnancy, first trimester (principal); R51.9 Headache, unspecified; Z3A.13 13 weeks gestation of pregnancy
CPT/HCPCS: A9270; G0378; G0379

== ENCOUNTER 2023-03-06 12:09 | Outpatient (CLI) | payer OTHER, SELFPAY ==
--- NOTE | ~2023-03-06 | US_ITS ---
EXAMINATION: US OB /maternal detail DATE: 03/06/2023 14:02 INDICATION: Encounter for screening, unspecified. TECHNIQUE: Real-time ultrasound of the pelvis was performed. COMPARISON: Ultrasound 12/01/2022 FINDINGS: There is a single living fetus in variable presentation. The placenta is anterior, 6.5 cm from the c ervix. The cervical length is 3.6 cm on transabdominal images, which is normal. heart rate is 1 34 beats per minute (bpm). The amniotic fluid volume is subjectively normal. The following biometric data were obtained: Biparietal diameter (BPD): 4.8 cm; head circumference (HC): 17.3 cm; abdominal circumference (AC): 14 .7 cm; femur length (FL): 3.2 cm. These measurements are concordant. Estimated weight is 325 g +/- 49 g, which correlates with the 36th percentile when 07/23/23 is u sed as estimated date of delivery. As single measurements, these parameters are each equal to the following estimated gestational ages: BPD: 20 weeks 3 days. HC: 19 weeks 6 days. AC: 20 weeks 0 days. FL: 20 weeks 0 days. estimated gestational age based solely on measurements from this exam is 20 weeks 1 days +/- 1 weeks 3 days. The cerebral ventricles, cerebellum, cisterna magna, nuchal fold, lip, and visualized portions of the spine are normal. The heart is normal. The diaphragm, stomach, kidneys, and bladder are normal. Ther e are two umbilical arteries to yield a 3-vessel cord. The cord insertion is normal. IMPRESSION: 1. Single living fetus in variable presentation. 2. Estimated weight is 325 g +/- 49 g, which correlates with the 36th percentile when 07/23/23 is used as estimated date of delivery. This date was set by ultrasound on 12/01/2022. 3. Normal anatomic survey. Reviewed, dictated and finalized at location A. [employer] IMPRESSION: 1. Single living fetus in variable presentation. 2. Estimated weight is 325 g +/- 49 g, which correlates with the 36th pe rcentile when 07/23/23 is used as estimated date of delivery. This date was set by ultrasound on 12/01/2022. 3. Normal anatomic survey.
[2023-03-06 14:26] LABS: Basophils Percent Auto 0.1 % (0.2-1.2); Eosinophils Percent Auto 0.4 % (0-4.4); Hematocrit 34.5 % (37.0-47.0); Hemoglobin 11.5 g/dL (12.0-15.0); Immature Granulocyte Absolute 0.04 K/mm3 (0.00-0.031); Immature Granulocyte Percent A 0.4 % (0-0.5); Lymphocytes Absolute Auto 2.04 K/mm3 (0.9-3.2); Lymphocytes Percent Auto 20.3 % (18.3-44.2); Mean Corpuscular HGB Conc 33.3 g/dl (32-36); Mean Corpuscular Hemoglobin 32.3 pg (26-34); Mean Corpuscular Volume 96.9 fl (80-100); Mean Platelet Volume 11.1 fl (7.4-10.4); Monocytes Absolute Auto 0.6 K/mm3 (0.1-0.6); Monocytes Percent Auto 5.9 % (2.6-8.5); Neutrophils Absolute Auto 7.4 K/mm3 (1.3-6.7); Neutrophils Percent Auto 72.9 % (45.5-73.1); Platelet Count Result 252 k/mm3 (150-375); Red Blood Count 3.56 M/mm3 (4.2-5.4); Red Cell Distribution Width 12.8 % (11.5-14.5); White Blood Count 10.1 K/mm3 (4.5-10.0)
[2023-03-06 14:52] LABS: Hemoglobin A1C 4.4 % (<5.7)
[2023-03-06 15:12] LABS: HIV 1/2 Ab P24 Ag Result Negative (Negative)
[2023-03-06 15:36] LABS: Hepatitis B Surface Antigen Negative (Negative); Rubella IgG Antibody 24.6 IU/ML
[2023-03-06 15:45] LABS: Hepatitis C Virus Antibody Negative (Negative)
[2023-03-06 15:57] LABS: Rapid Plasma Reagin Non-Reactive (NonReactive)
[2023-03-06 16:10] LABS: Vitamin D 25 Hydroxy 26.4 ng/mL
== END 2023-03-06 12:10 | disposition home or self-care (01) ==
LOC: ANHIMG 12:12
PROVIDERS: Visit Provider Obstetrics & Gynecology Gynecology
DX: Z36.9 Encounter for antenatal screening, unspecified (principal)
CPT/HCPCS: 36415; 76805; 82306; 82728; 83036; 84443; 85025; 86592; 86703; 86762; 86803; 86850; 86900; 86901; 87340; G0432

== ENCOUNTER 2023-03-22 11:36 | Observation (INO) | payer OTHER, SELFPAY ==
[2023-03-22 12:03] VITALS: RESP 16; TEMP 37
[2023-03-22 12:04] VITALS: BP 110/60; PULSE 68; BMI 21.6
--- NOTE | 2023-03-22 12:04 | OBADM ---
This patient, Aisha Cuevas, admitted to the OB room 115 for observation for right sided pain. Patient/family oriented to hospital policies and general routines including ID bracelet, bed and alarms, visiting hours, pain management, procedures, bathroom and other care routines, personal items, smoking policy, room service/diet, and visiting hours. Patient/Family are encouraged to report perceived risks to care and to ask questions if they do not understand what they are told or what they should do.
--- NOTE | 2023-03-22 12:26 | PC.NURSE ---
Dr. Patel returned page and informed of this 22 wk pt's arrival with c/o mainly right sided abdominal pain that is at times in right upper abdomen and right lower abdomen at other times. Has occasionaly felt the pain in her back and vagina. Pt is afebrile and denies nausea, vomiting, and constipation. UA was sent. Order received for CBC and CMP. If labs are normal, to discharge to home with instructions to obtain a support band/belt.
--- NOTE | 2023-03-22 12:26 | PC.NURSE ---
Dr. Patel also informed FHT's 135 with moderate variability and 10 beat accels. No contractions noted per monitor and no uterine tightening palpable during pt c/o pain. OK to discontinue monitor.
[2023-03-22 12:42] LABS: Appearance Urine Clear (Clear); Bilirubin Urine Negative (Negative); Blood Urine Negative (Negative); Color Urine Yellow (Yellow); Glucose Urine UA Negative (Negative); Ketones Urine Negative (Negative); Leukocyte Esterase Ur Negative LEU/UL (Negative); Nitrate Urine Negative (Negative); Protein Urine Negative (Negative); Specific Grav Ur 1.007 (1.001-1.035); Urobilinogen Urine 0.2 mg/dL (<2.0)
[2023-03-22 12:44] LABS: Add Urine Microscopic? NO
[2023-03-22 12:50] LABS: Basophils Percent Auto 0.3 % (0.2-1.2); Eosinophils Absolute Auto 0.1 K/mm3 (0-0.3); Eosinophils Percent Auto 0.8 % (0-4.4); Hematocrit 31.4 % (37.0-47.0); Hemoglobin 10.3 g/dL (12.0-15.0); Immature Granulocyte Absolute 0.03 K/mm3 (0.00-0.031); Immature Granulocyte Percent A 0.4 % (0-0.5); Lymphocytes Absolute Auto 1.78 K/mm3 (0.9-3.2); Lymphocytes Percent Auto 22.8 % (18.3-44.2); Mean Corpuscular HGB Conc 32.8 g/dl (32-36); Mean Corpuscular Hemoglobin 32.1 pg (26-34); Mean Corpuscular Volume 97.8 fl (80-100); Mean Platelet Volume 11.2 fl (7.4-10.4); Monocytes Absolute Auto 0.5 K/mm3 (0.1-0.6); Monocytes Percent Auto 6.6 % (2.6-8.5); Neutrophils Absolute Auto 5.4 K/mm3 (1.3-6.7); Neutrophils Percent Auto 69.1 % (45.5-73.1); Platelet Count Result 192 k/mm3 (150-375); Red Blood Count 3.21 M/mm3 (4.2-5.4); Red Cell Distribution Width 12.3 % (11.5-14.5); White Blood Count 7.8 K/mm3 (4.5-10.0)
[2023-03-22 13:11] LABS: Alanine Aminotransferase 11 U/L (6-35); Albumin Level 3.6 g/dL (3.5-5.1); Alkaline Phosphatase 51 U/L (38-126); Anion Gap 5 mmol/L (8-16); Aspartate Amino Transferase 22 U/L (14-36); Bilirubin,Total 0.2 mg/dL (0.2-1.3); Blood Urea Nitrogen 10 mg/dL (7-17); Carbon Dioxide 26 mmol/L (22-30); Chloride 102 mmol/L (98-107); Estimated CRCL calculation 138 ml/min; Estimated Glomerular Filt Rate > 60; Glucose 77 mg/dL (65-110); Potassium 3.6 mmol/L (3.4-5.0); Sodium 133 mmol/L (137-145)
--- NOTE | 2023-03-24 10:02 | PM.OBTRLD ---
OB - Triage/Final Diagnosis Visit Information Reason for evaluation: other (abdominal pain) Comments/Additional reasons for admission: I have assessed the risk for this patient, Aisha Cuevas, and determined that she would benefit from observation care. Evaluation Laboratory results: Laboratory Tests 03/22/23 03/22/23 12:22 12:45 WBC 7.8 RBC 3.21 L Hgb 10.3 L Hct 31.4 L MCV 97.8 MCH 32.1 MCHC 32.8 RDW 12.3 Plt Count 192 MPV 11.2 H Immature Gran % (Auto) 0.4 Neut % (Auto) 69.1 Lymph % (Auto) 22.8 Kimball % (Auto) 6.6 Eos % (Auto) 0.8 Baso % (Auto) 0.3 Lymph # (Auto) 1.78 Kimball # (Auto) 0.5 Eos # (Auto) 0.1 Baso # (Auto) 0.0 Abs Immat Gran (auto) 0.03 Absolute Neuts (auto) 5.4 Absolute Nucleated RBC 0.0 Nucleated RBC % 0.0 Sodium 133 L Potassium 3.6 Chloride 102 Carbon Dioxide 26 Anion Gap 5 L BUN 10 D Creatinine 0.40 L Estim Creat Clear Calc 138 Estimated GFR > 60 Glucose 77 Calcium 9.0 Total Bilirubin 0.2 AST 22 ALT 11 Alkaline Phosphatase 51 Total Protein 6.0 L Albumin 3.6 Urine Color Yellow Urine Appearance Clear Urine pH 7.0 Ur Specific Dewy Rose 1.007 Urine Protein Negative Urine Glucose (UA) Negative Urine Ketones Negative Ur Blood (Man) Negative Urine Nitrate Negative Urine Bilirubin Negative Urine Urobilinogen 0.2 Leukocyte Esterase Rfl Negative
== END 2023-03-22 13:46 | disposition home or self-care (01) ==
PROVIDERS: Admitting Provider Obstetrics & Gynecology Gynecology; Visit Provider Obstetrics & Gynecology Gynecology
DX: O26.892 Other specified pregnancy related conditions, second trimester (principal); R10.31 Right lower quadrant pain; Z3A.22 22 weeks gestation of pregnancy
CPT/HCPCS: 36415; 80053; 81003; 85025; G0378; G0379

== ENCOUNTER 2023-03-27 09:28 | Observation (INO) | payer OTHER, SELFPAY ==
--- NOTE | 2023-03-27 09:58 | PC.NURSE ---
0957: RN phoned Dr. Patel to inform her that patient is complaining of black vomit last night and once this morning. OB notified that patient at [employer] and drank tea last night, and that patient has been able to keep down chocolate milk. Patient denies any pain, N/V/D, or contarctions at this time. Order to get a CBC. Orders to instruct patient to take Pepcid once daily.
[2023-03-27 10:00] VITALS: BP 101/53; PULSE 89
--- NOTE | 2023-03-27 10:09 | PC.NURSE ---
0957: RN informed OB that we were able to get a 2 min tracing for FHT. No new orders.
[2023-03-27 10:11] LABS: Basophils Percent Auto 0.2 % (0.2-1.2); Eosinophils Percent Auto 0.5 % (0-4.4); Hematocrit 34.2 % (37.0-47.0); Immature Granulocyte Absolute 0.04 K/mm3 (0.00-0.031); Immature Granulocyte Percent A 0.5 % (0-0.5); Lymphocytes Absolute Auto 1.42 K/mm3 (0.9-3.2); Lymphocytes Percent Auto 16.6 % (18.3-44.2); Mean Corpuscular HGB Conc 32.2 g/dl (32-36); Mean Corpuscular Hemoglobin 31.7 pg (26-34); Mean Corpuscular Volume 98.6 fl (80-100); Mean Platelet Volume 11.3 fl (7.4-10.4); Monocytes Absolute Auto 0.7 K/mm3 (0.1-0.6); Monocytes Percent Auto 8.4 % (2.6-8.5); Neutrophils Absolute Auto 6.3 K/mm3 (1.3-6.7); Neutrophils Percent Auto 73.8 % (45.5-73.1); Platelet Count Result 213 k/mm3 (150-375); Red Blood Count 3.47 M/mm3 (4.2-5.4); Red Cell Distribution Width 12.4 % (11.5-14.5); White Blood Count 8.6 K/mm3 (4.5-10.0)
[2023-03-27 10:15] VITALS: BP 104/58; PULSE 72
--- NOTE | 2023-03-27 10:21 | PC.NURSE ---
1020: RN phoned Dr. Patel to inform her of CBC results. Orders to discharge patient home with instructions to Pepcid as needed.
[2023-03-27 10:30] VITALS: BP 100/56; PULSE 78
--- NOTE | 2023-03-29 14:22 | P.PNOB_ITS ---
OB - Triage/Final Diagnosis Visit Information Reason for evaluation: other (blood in vomit) Comments/Additional reasons for admission: I have assessed the risk for this patient, Aisha Cuevas, and determined that she would benefit from observation care. Evaluation Laboratory results: Laboratory Tests 03/27/23 10:02 WBC 8.6 RBC 3.47 L Hgb 11.0 L Hct 34.2 L MCV 98.6 MCH 31.7 MCHC 32.2 RDW 12.4 Plt Count 213 MPV 11.3 H Immature Gran % (Auto) 0.5 Neut % (Auto) 73.8 H Lymph % (Auto) 16.6 L Bartholomew % (Auto) 8.4 Eos % (Auto) 0.5 Baso % (Auto) 0.2 Lymph # (Auto) 1.42 Bartholomew # (Auto) 0.7 H Eos # (Auto) 0.0 Baso # (Auto) 0.0 Abs Immat Gran (auto) 0.04 H Absolute Neuts (auto) 6.3 Absolute Nucleated RBC 0.0 Nucleated RBC % 0.0
== END 2023-03-27 10:35 ==
PROVIDERS: Admitting Provider Obstetrics & Gynecology Gynecology; Visit Provider Obstetrics & Gynecology Gynecology
DX: O21.8 Other vomiting complicating pregnancy (principal); K92.0 Hematemesis; Z3A.00 Weeks of gestation of pregnancy not specified
CPT/HCPCS: 36415; 85025; G0378; G0379

== ENCOUNTER 2023-05-04 12:08 | Outpatient (CLI) | payer OTHER, SELFPAY ==
[2023-05-04 12:51] LABS: Hematocrit 30.3 % (37.0-47.0)
[2023-05-04 13:30] LABS: Vitamin D 25 Hydroxy 36.4 ng/mL
[2023-05-04 13:33] LABS: HIV 1/2 Ab P24 Ag Result Negative (Negative)
== END 2023-05-04 12:09 | disposition home or self-care (01) ==
PROVIDERS: Visit Provider Nurse Practitioner
DX: Z34.93 Encounter for supervision of normal pregnancy, unspecified, third trimester (principal)
CPT/HCPCS: 36415; 82306; 85014; 85018; 86703; G0432

== ENCOUNTER 2023-05-14 14:33 | Observation (INO) | payer OTHER, SELFPAY ==
[2023-05-14 15:04] VITALS: BMI 24.5
[2023-05-14] MEDS: ONDANSETRON INJ 4 MG/2 ML VIAL IV PUSH (15:24)
[2023-05-14] MEDS: DEXTROSE 5%/LACTATED RINGERS 1,000 ML 999 ML IV CONT (15:25)
[2023-05-14 15:47] LABS: Anion Gap 6 mmol/L (4-12); Appearance Urine Cloudy (Clear); Bacteria Urine 2+ /hpf; Bilirubin Urine Negative (Negative); Blood Urea Nitrogen 9 mg/dL (7-17); Blood Urine Negative (Negative); Calcium 8.7 mg/dL (8.4-10.2); Carbon Dioxide 21 mmol/L (22-30); Chloride 106 mmol/L (98-107); Color Urine Yellow (Yellow); Estimated CRCL calculation 138 ml/min; Estimated Glomerular Filt Rate > 60; Glucose 90 mg/dL (65-110); Glucose Urine UA Negative (Negative); Ketones Urine Trace mg/dL (Negative); Leukocyte Esterase Ur Negative LEU/UL (Negative); Nitrate Urine Negative (Negative); Non Pathogenic Casts 0-2; Potassium 3.5 mmol/L (3.4-5.0); Protein Urine Negative (Negative); RBC Urine 0-2 /hpf (0-2); Sodium 133 mmol/L (137-145); Specific Grav Ur 1.025 (1.001-1.035); Squamous Epithelial Cell Urine Few /hpf (Few); WBC Urine 0-5 /hpf (0-3)
[2023-05-14 15:50] LABS: Add Urine Microscopic? YES
[2023-05-14 16:07] VITALS: BP 100/58; PULSE 94
--- NOTE | 2023-05-18 09:49 | P.PNOB_ITS ---
OB - Triage/Final Diagnosis Visit Information Reason for evaluation: other (nausea and vomiting) Comments/Additional reasons for admission: I have assessed the risk for this patient, Aisha Cuevas, and determined that she would benefit from observation care. Evaluation Laboratory results: Laboratory Tests 05/14/23 15:29 Sodium 133 L Potassium 3.5 Chloride 106 Carbon Dioxide 21 L Anion Gap 6 BUN 9 Creatinine 0.40 L Estim Creat Clear Calc 138 Estimated GFR > 60 Glucose 90 Calcium 8.7 Urine Color Yellow Urine Appearance Cloudy H Urine pH 8.0 Ur Specific Mcqueeney 1.025 Urine Protein Negative Urine Glucose (UA) Negative Urine Ketones Trace H Ur Blood (Man) Negative Urine Nitrate Negative Urine Bilirubin Negative Urine Urobilinogen 1.0 Ur Leukocyte Esterase Negative Urine RBC 0-2 Urine WBC 0-5 Ur Squamous Epith Cells Few Urine Bacteria 2+ H Urine Casts 0-2
== END 2023-05-14 16:40 | disposition home or self-care (01) ==
PROVIDERS: Admitting Provider Obstetrics & Gynecology Gynecology; Visit Provider Obstetrics & Gynecology Gynecology
DX: O21.2 Late vomiting of pregnancy (principal); Z3A.30 30 weeks gestation of pregnancy
CPT/HCPCS: 36415; 59025; 80048; 81001; 87086; 96361; 96374; G0378; G0379; J2405; J7121

== ENCOUNTER 2023-07-17 04:52 | Inpatient (IN) | payer OTHER, SELFPAY ==
[2023-07-17] VITALS (88 sets, daily range): BP systolic 80–157; BP diastolic 59–109; PULSE 43–165; RESP 16–20; TEMP 36.4–37.1; O2SAT 79–100; BMI 26.6
[2023-07-17] MEDS: ONDANSETRON INJ 4 MG/2 ML VIAL IV PUSH ×2 (05:26→13:05)
--- NOTE | 2023-07-17 05:33 | LDADM ---
This patient, Aisha Cuevas, was admitted to Labor/Delivery/Recovery 104 on 07/17/23 at 04:52. Plans for labor, pain management and were discussed with patient. Patient/family oriented to hospital policies and general routines including ID bracelet, bed and alarms, visiting hours, pain management, procedures, bathroom and other care routines, personal items, smoking policy, room service/diet and guest tray routines, infant security routines, and visiting hours. Patient/Family are encouraged to report perceived risks to care and to ask questions if they do not understand what they are told or what they should do. See OBIX for further documentation.
[2023-07-17 05:46] LABS: Basophils Percent Auto 0.3 % (0.2-1.2); Eosinophils Absolute Auto 0.1 K/mm3 (0-0.3); Eosinophils Percent Auto 0.6 % (0-4.4); Hemoglobin 10.6 g/dL (12.0-15.0); Immature Granulocyte Absolute 0.02 K/mm3 (0.00-0.031); Immature Granulocyte Percent A 0.2 % (0-0.5); Lymphocytes Absolute Auto 2.95 K/mm3 (0.9-3.2); Lymphocytes Percent Auto 32.8 % (18.3-44.2); Mean Corpuscular HGB Conc 32.1 g/dl (32-36); Mean Corpuscular Hemoglobin 29.4 pg (26-34); Mean Corpuscular Volume 91.4 fl (80-100); Mean Platelet Volume 12.7 fl (7.4-10.4); Monocytes Absolute Auto 0.8 K/mm3 (0.1-0.6); Monocytes Percent Auto 9.1 % (2.6-8.5); Neutrophils Absolute Auto 5.1 K/mm3 (1.3-6.7); Platelet Count Result 212 k/mm3 (150-375); Red Blood Count 3.61 M/mm3 (4.2-5.4); Red Cell Distribution Width 13.2 % (11.5-14.5)
[2023-07-17] MEDS: OXYTOCIN 30 UNITS/NS 500 ML 30 UNITS/500 ML BAG IV CONT (05:54)
[2023-07-17] MEDS: LACTATED RINGERS 1,000 ML 125 ML IV CONT ×2 (05:54→07:04)
[2023-07-17] MEDS: fentaNYL CITRATE INJ (*CRX) 100 MCG/2 ML VIAL IV PUSH (06:02)
[2023-07-17 06:29] LABS: HIV 1/2 Ab P24 Ag Result Negative (Negative)
--- NOTE | 2023-07-17 07:02 | WPDANESEPP ---
Anes - Eval Pre Procedure Procedure: Labor Epidural Date/Time: 07/17/23 07:02 Surgeon: Jorge Preop Diagnosis: Labor pain Pre Op Diagnosis: IOL Patient Data Age: 28 Gender: F Height: 1.57 m Weight: 66 kg Last Vital Signs Temp 36.4 C 07/17/23 06:54 Pulse 58 L 07/17/23 07:00 Resp 20 07/17/23 06:54 BP 142/84 H 07/17/23 07:00 Pulse Ox 100 07/17/23 07:00 O2 Del Method Room Air 07/17/23 05:30 Allergies Allergy/AdvReac Type Severity Reaction Status Date / Time metoclopramide AdvReac Unknown Anxiety Verified 06/22/23 14:15 prochlorperazine AdvReac Unknown Verified 06/22/23 14:15 [From Compazine] Home Medications Medication Instructions Recorded Confirmed Type vit no.133-ferrous 1 tablet PO DAILY 01/18/23 06/22/23 History fumarate 28 mg-folic acid 800 mcg tablet () ferrous sulfate 325 mg (65 mg 325 mg PO DAILY 03/22/23 06/22/23 History iron) tablet Laboratory Tests 07/17/23 05:27 WBC 9.0 K/mm3 (4.5-10.0) RBC 3.61 L M/mm3 (4.2-5.4) Hgb 10.6 L g/dL (12.0-15.0) Hct 33.0 L % (37.0-47.0) MCV 91.4 fl (80-100) MCH 29.4 pg (26-34) MCHC 32.1 g/dl (32-36) RDW 13.2 % (11.5-14.5) Plt Count 212 k/mm3 (150-375) MPV 12.7 H fl (7.4-10.4) Immature Gran % (Auto) 0.2 % (0-0.5) Neut % (Auto) 57.0 % (45.5-73.1) Lymph % (Auto) 32.8 % (18.3-44.2) Ulster % (Auto) 9.1 H % (2.6-8.5) Eos % (Auto) 0.6 % (0-4.4) Baso % (Auto) 0.3 % (0.2-1.2) Lymph # (Auto) 2.95 K/mm3 (0.9-3.2) Ulster # (Auto) 0.8 H K/mm3 (0.1-0.6) Eos # (Auto) 0.1 K/mm3 (0-0.3) Baso # (Auto) 0.0 K/mm3 (0.0-0.1) Abs Immat Gran (auto) 0.02 K/mm3 (0.00-0.031) Absolute Neuts (auto) 5.1 K/mm3 (1.3-6.7) Absolute Nucleated RBC 0.000 K/mm3 (0.0-0.012) Nucleated RBC % 0.0 % (0.0-0.2) RPR Pending HIV 1&2 Ab/P24 Ag 4thGn Negative (Negative) Blood Type O Positive Antibody Screen Negative : gestational age (MARK ANTHONY 07/23/23, ) Patient hx anesthesia problems: none Family hx anesthesia problems: none Results Review: All pre-operative results and documents have been reviewed as part of the pre-operative evaluation. [facility] Past Medical History Medical History Anxiety Asthma childhood only (normal spontaneous vaginal delivery) 2020-severe hyperemesis preeclampsia Surgical History Surgical History History of tympanostomy Family History Family History Father Alive and well Colon cancer Mother Alive and well Sibling Brain tumor Social History Social History Smoking packs per day: 0.5 Smoking cigarettes per day: 10.0 Years smoked: 8 Smoking pack-years: 4.00 Smoking status: Current every day smoker Tobacco type: e-cigarettes/vaping Second hand tobacco smoke exposure: Yes Smoking end date: 01/06/20 Additional smoking assessment comments: HAS BEEN SMOKING PUFF BAR SINCE NOVEMBER 2019 Alcohol intake: current Alcohol use details: 1/MONTH Substance use: former Substance use type: marijuana Other substance usage details: OCCASIONAL MARIJUANA Do You Feel Safe in your Home?: No Lack of Transportation: No Lack of Food: Never True Current Housing: I Have Housing Concerned About Future Housing: No Difficulty Paying Gas/Electric Bills: No Difficulty Paying for Meds: No Currently Unemployed: No Education: High School Diploma/GED Difficulty w/ Childcare or Family Care: No Living arrangements: with family Gender identity (if verbalized by the patient): Female Spiritual care concerns: No Exam Day of Procedure 07/17/23 07:02 Patient weight:
--- NOTE | 2023-07-17 08:09 | WPDOBADMIT ---
Obstetrics - Admit Note Admission Note: record reviewed. No pertinent additions to the history and/or any subsequent changes in the physical findings that are not consistent with the expected course of the were found. Additions to the history and/or subsequent changes in the physical findings follow. Arrived for scheduled IOL and was found to be in labor.
--- NOTE | 2023-07-17 08:10 | PM.OBPNLAB ---
Pain Control Date/time seen: 07/17/23 08:10 Pain control: epidural Comments: feeling increased pelvic pressure. Pelvic Exam Comments: pt making quick cervical change. Last SVE per RN was 8cm Contractions Monitor mode: External Contraction pattern: Regular Contraction intensity: Strong/Firm Assessment and Plan Comments: anticipate vaginal
--- NOTE | 2023-07-17 08:40 | PM.OBPRVD ---
OB - Vaginal Delivery Note Procedure Delivery date: 07/17/23 Induction method: None Delivery monitor: External FHT and External Uterine Route of delivery: Episiotomy description: None Laceration Description: Superficial (right periurethral) Specimen: No Quantitative Blood Loss (ml): 50 Anesthesia type: Epidural Disposition: Floor Complications: No immediate complications Narrative: Aisha arrived for induction of labor and was found to be in active labor. She reported spontaneous rupture of membranes and the fluid was clear. She received an epidural for analgesia and made quick change to complete dilation. She pushed well with a few contractions and brought the head to complete crown. After the delivery of the head, excellent restitution was observed followed by easy delivery of the anterior-posterior shoulders. after the remainder of the infant was delivered, she was placed on the maternal abdomen, after 1 minute of life the cord was doubly clamped and cut. Cord blood, cord segment, and cord gases were obtained. Mother and baby skin to skin. There was excellent uterine tone And hemostasis and all delivery counts correct. [place] Baby Date of : 07/17/23 Time of : 08:29 Weeks of gestation at delivery: 39 gender: Female Weight (pounds): 0 ( weight not available at time of this note as skin to skin with mother) presentation: vertex position: Left Occiput Anterior Placenta delivery description: Spontaneous Cord Vessel Description: 3 Vessels and Delayed Cord Clamping score one minute: 8 score five minutes: 9
--- NOTE | 2023-07-17 08:45 | PM.OBDSVD ---
DS: Admitting Diagnosis Discharge Date 07/18/23 Admitting Diagnosis 28 y.o. Spontaneous ROM Labor at term DS: Discharge Diagnosis Discharge Diagnosis (1) Anxiety: Code(s): F41.9 - Anxiety disorder, unspecified Status: Acute (2) (normal spontaneous vaginal delivery): Code(s): O80 - Encounter for full-term uncomplicated delivery Status: Acute (3) Hypokalemia: Code(s): E87.6 - Hypokalemia Status: Acute Plan Labs stable except for new onset hypokalemai. Supplement ordered prior to DC. OB - DS: Summary Hospital Course Hospital Course: Complicated by nausea and vomiting. transfer to NICU OB Procedures : Ultrasound OB Procedures Intrapartum: Spontaneous Vag Delivery OB Procedures: : None Peripartum Data Delivery Method: Natural Vaginal Laceration Description: Superficial (right periurethral) Episiotomy description: None complications: none and other (nausea and vomiting, hypokalemia) Status at Discharge Functional status at discharge: independent ambulation Overall status at discharge: patient is progressing back to baseline Time Spent with Patient Time attestation: Total time spent providing and/or coordinating discharge services: Exam Narrative: Alert and oriented. Perineum with minimal edema. Fundus firm and below umbilicus. Const: General: healthy appearing, no acute distress and alert Orientation/consciousness: patient oriented x3 Limitations: no limitations Resp: Effort & Inspection: normal respiratory effort and able to speak in complete sentences Auscultation: clear to auscultation bilaterally Cardio: Rate: regular rate GI: Inspection: normal to inspection Auscultation: normal bowel sounds : General: Yes bladder normal to palpation External Female Exam: other (lochia WNL) Bimanual exam- vagina & uterus: bladder normal to palpation Other: Fundus firm and below U Skin: General skin exam: normal color and no rashes or lesions noted Neuro: General: patient oriented x3 and moves all extremities Cognition (Neuro): normal cognition Extrem: General: normal to inspection and no calf tenderness Psych: Appearance: grossly normal Mental Status: mental status grossly normal Affect: normal affect Thought process: Normal thought process present DS: Data Data Completed and Pending Labs on day of discharge: Labs from last 24 hours 07/17/23 05:27 WBC 9.0 RBC 3.61 L Hgb 10.6 L Hct 33.0 L MCV 91.4 MCH 29.4 MCHC 32.1 RDW 13.2 Plt Count 212 MPV 12.7 H Immature Gran % (Auto) 0.2 Neut % (Auto) 57.0 Lymph % (Auto) 32.8 Dickenson % (Auto) 9.1 H Eos % (Auto) 0.6 Baso % (Auto) 0.3 Lymph # (Auto) 2.95 Dickenson # (Auto) 0.8 H Eos # (Auto) 0.1 Baso # (Auto) 0.0 Abs Immat Gran (auto) 0.02 Absolute Neuts (auto) 5.1 Absolute Nucleated RBC 0.000 Nucleated RBC % 0.0 RPR Pending HIV 1&2 Ab/P24 Ag 4thGn Negative Blood Type O Positive Antibody Screen Negative Discharge Plan Discharge Attending physician on discharge: Divya Patel Consulting providers: Helder Szymanski Discharging Clinician: Carmelita Day Anticipated Discharge Date/Time: 07/18/23 21:37 Patient Disposition: Home, Self-Care Activity: may shower and pelvic rest Diet: as tolerated Wound Care Instructions: follow printed instructions Discharge Instructions: Continue taking your vitamin and any other supplements as previously directed (Examples: Iron, Vitamin D). You may take Tylenol 1000mg over the counter every 6 hours as needed for pain. Do not exceed 4000mg of Tylenol daily. You may continue using tucks pads and dermoplast spray if needed for a few more days. Depression Notify provider for signs or symptoms. These may include- Feelings: Feeling anxious, angry, hopeless, guilt, or loss of interest/pleasure in activities you normally
[2023-07-17] MEDS: OXYTOCIN 30 UNITS/NS 500 ML 30 UNITS/500 ML BAG 125 UNITS IV CONT (09:04)
[2023-07-17] MEDS: WITCH HAZEL 40 PADS 1 PAD TOPICAL (11:36)
[2023-07-17] MEDS: BENZOCAINE 20% AER SPR (*SP) 56 GM CAN 1 SPRAY TOPICAL (11:36)
[2023-07-17 11:42] LABS: Rapid Plasma Reagin Non-Reactive (NonReactive)
--- NOTE | 2023-07-17 12:06 | PC.NURSE ---
Patient transferred to post room #292 per wheelchair from labor and delivery. Support person present. Oriented to unit, room, information board, rooming in, admission packet and security measures. Patient verbalizes understanding.
[2023-07-17] MEDS: ACETAMINOPHEN 325 MG TABLET 650 MG PO (12:44)
[2023-07-17] MEDS: hydrOXYzine HCL 25 MG TABLET PO (14:52)
[2023-07-17 16:17] LABS: Alanine Aminotransferase 25 U/L (6-35); Albumin Level 3.7 g/dL (3.5-5.1); Alkaline Phosphatase 244 U/L (38-126); Anion Gap 4 mmol/L (4-12); Aspartate Amino Transferase 39 U/L (14-36); Bilirubin,Total 0.4 mg/dL (0.2-1.3); Blood Urea Nitrogen 5 mg/dL (7-17); Calcium 9.1 mg/dL (8.4-10.2); Carbon Dioxide 25 mmol/L (22-30); Chloride 107 mmol/L (98-107); Estimated CRCL calculation 108 ml/min; Estimated Glomerular Filt Rate > 60; Glucose 83 mg/dL (65-110); Potassium 4.1 mmol/L (3.4-5.0); Sodium 136 mmol/L (137-145)
[2023-07-17 18:08] LABS: Amphetamine Screen Urine Negative (Negative); Barbiturate Screen Urine Negative (Negative); Benzodiazepines Screen Urine Negative (Negative); Cannabinoid Screen Urine Positive (Negative); Cocaine Screen Urine Negative (Negative); Methadone Screen Urine Negative (Negative); Opiate Screen Urine Negative (Negative); Phencyclidine Screen Urine Negative (Negative)
[2023-07-17] MEDS: DEXTROSE 5%/LACTATED RINGERS 1,000 ML 125 ML IV CONT (19:27)
[2023-07-17] MEDS: ONDANSETRON INJ 4 MG/2 ML VIAL 8 MG IV PUSH (19:43)
[2023-07-17] MEDS: FAMOTIDINE 20 MG/2 ML VIAL IV PUSH (19:45)
[2023-07-17] MEDS: hydrOXYzine HCl 50 MG/ML VIAL IM (19:48)
[2023-07-18] MEDS: KETOROLAC 30 MG/ML VIAL (*BKC) IV PUSH (01:17)
[2023-07-18 04:00] VITALS: BP 139/96; PULSE 64; RESP 16; TEMP 36.8; O2SAT 99
[2023-07-18] MEDS: ONDANSETRON INJ 4 MG/2 ML VIAL 8 MG IV PUSH (04:02)
[2023-07-18 05:22] LABS: Hematocrit 36.4 % (37.0-47.0); Hemoglobin 11.8 g/dL (12.0-15.0)
[2023-07-18] MEDS: DEXTROSE 5%/LACTATED RINGERS 1,000 ML 125 ML IV CONT (07:34)
[2023-07-18 08:40] VITALS: BP 121/84; PULSE 68; RESP 16; TEMP 36.5; O2SAT 98
[2023-07-18 09:30] LABS: Alanine Aminotransferase 38 U/L (6-35); Albumin Level 3.9 g/dL (3.5-5.1); Alkaline Phosphatase 243 U/L (38-126); Anion Gap 6 mmol/L (4-12); Aspartate Amino Transferase 64 U/L (14-36); Bilirubin,Total 0.5 mg/dL (0.2-1.3); Blood Urea Nitrogen 6 mg/dL (7-17); Calcium 8.9 mg/dL (8.4-10.2); Carbon Dioxide 26 mmol/L (22-30); Chloride 103 mmol/L (98-107); Estimated CRCL calculation 108 ml/min; Estimated Glomerular Filt Rate > 60; Glucose 90 mg/dL (65-110); Potassium 3.5 mmol/L (3.4-5.0); Sodium 135 mmol/L (137-145)
[2023-07-18] MEDS: ONDANSETRON INJ 4 MG/2 ML VIAL IV PUSH (11:35)
--- NOTE | 2023-07-18 11:40 | PC.NURSE ---
Breast pump provided due to separation from infant. Instructions given on cleaning, care, usage, that there should be no pain, pumping schedule for milk production, collection, and storage of human milk. Patient was assessed for correct placement, flange size, to pump for comfort and nipple stretching/stimulation for adequate milk production every 3 hours (8 times in 24 hours) 1-2 times at night. Mother voiced understanding of the education shared along with mom/baby guide and the pump measurement, flange fit handout for additional resource information.
--- NOTE | 2023-07-18 12:21 | PM.OBPNVD ---
OB - PN: Subj Subjective Date/time seen: 07/18/23 0755 Interval history: 0110 this am RN called CNM. Pt refusing to attempt po intake/meds and requests IV only. Plan of care discussed with RN and orders given for fluids and antiemetics. Encourage small amounts of po intake when able. 0755 CNM at bedside. Pt sitting upright in bed. Reports continued nausea and stomach pain. States it has been worse the last 3 days. I've even tried smoking and that didn't help. Did not desire to have baby at bedside overnight. Not attempting to feed baby. Bleeding WNL. Denies dizziness when ambulating. No large clots, not soaking pads. Perineal discomfort minimal. Discussed Hx nausea and vomiting and hx with first . Briefly discussed chronic marijuana use as may be contributing factor. Pt somewhat agitated at this time and denies marijuana use being an issue. Encouraged attempting small amount of po intake and taking antiemetics on schedule. Pt agreeable to this plan. Pt states she is going to shower this am as that usually helps nausea symptoms. BPs mild range. Elevated AST. Denies FLETCHER, visual changes, or edema. Does report some RUQ pain intermittent x last 3 weeks. Discussed AST could be d/t vomiting. Discussed signs of preeclampsia. Encouraged to report any changes or concerns to RN/provider. Patient comments: other baby status: other ( in nursery overnight. Not attempting to hold/feed. ) feeding status: other (not attempting to feed) OB - PN: Obj Data Labs 07/18/23 04:07 07/18/23 09:10 Labs: Laboratory Results - last 24 hr 07/17/23 07/17/23 07/18/23 16:02 17:28 04:07 Hgb 11.8 L Hct 36.4 L Sodium 136 L Potassium 4.1 Chloride 107 Carbon Dioxide 25 Anion Gap 4 BUN 5 L Creatinine 0.60 L Estim Creat Clear Calc 108 Estimated GFR > 60 Glucose 83 Calcium 9.1 Total Bilirubin 0.4 AST 39 H ALT 25 Alkaline Phosphatase 244 H Total Protein 7.0 Albumin 3.7 Urine Opiates Screen Negative Urine Methadone Screen Negative Ur Barbiturates Screen Negative Ur Phencyclidine Scrn Negative Ur Amphetamine Screen Negative U Benzodiazepines Scrn Negative Urine Cocaine Screen Negative U Cannabinoids Screen Positive A 07/18/23 09:10 Hgb Hct Sodium 135 L Potassium 3.5 Chloride 103 Carbon Dioxide 26 Anion Gap 6 BUN 6 L Creatinine 0.60 L Estim Creat Clear Calc 108 Estimated GFR > 60 Glucose 90 Calcium 8.9 Total Bilirubin 0.5 AST 64 H ALT 38 H Alkaline Phosphatase 243 H Total Protein 7.0 Albumin 3.9 Urine Opiates Screen Urine Methadone Screen Ur Barbiturates Screen Ur Phencyclidine Scrn Ur Amphetamine Screen U Benzodiazepines Scrn Urine Cocaine Screen U Cannabinoids Screen OB - PN A/P Assessment and Plan (1) (normal spontaneous vaginal delivery): Code(s): O80 - Encounter for full-term uncomplicated delivery Status: Acute (2) Hyperemesis gravidarum: Code(s): O21.0 - Mild hyperemesis gravidarum Status: Acute (3) Chronic nausea: Code(s): R11.0 - Nausea Status: Acute (4) Anxiety: Code(s): F41.9 - Anxiety disorder, unspecified Status: Acute (5) Marijuana use during : Code(s): O99.320 - Drug use complicating , unspecified trimester; F12.90 - Cannabis use, unspecified, uncomplicated Status: Acute (6) At risk for impaired parent-infant bonding: Code(s): Z91.89 - Other specified personal risk factors, not elsewhere classified Status: Acute Plan day: 1 Plan: routine care Comments: plan to continue IV fluids, transition to PO medications and po food/fluids. BPs q 4 hours while awake. observe for signs of preeclampsia. Social work consult. Time Spent With Patient Time: Total time spent is greater than 50% in coordination of care (as documented
[2023-07-18 12:28] VITALS: BP 135/96; PULSE 71; RESP 16; TEMP 36.8; O2SAT 100
--- NOTE | 2023-07-18 16:08 | PCCCNOTE ---
Addendum entered by SLADE James 07/20/23 08:26: Received notification from [employer] that they will reach out to patient to offer support/services. Addendum entered by SLADE James 07/18/23 16:21: Submitted online DCFS report regarding marijuana use, ID [id number]. Original Note: Met with pt. and TREMAYNE Last. This is her second child, she has a 3 year at home. Pt. has information for [facility] as baby was transferred due to respiratory distress. Pt. recreationally uses marijuana and has for several years, has no intention to discontinue this. Pt. has all necessary supplies at home for baby including car set, crib, clothing, diapers etc. Hopes to breast feed and has a pump at home but is not sure if this will happen. Spoke about supplemental formula feeding and pt. states she may apply for WIC. resources provided and encouraged her to contact the [facility] office. Pt. anticipates discharge tomorrow.
[2023-07-18 16:10] VITALS: BP 135/98; PULSE 67
[2023-07-18] MEDS: IBUPROFEN 600 MG TABLET PO (16:12)
[2023-07-18] MEDS: ONDANSETRON HCL ODT 4 MG TABLET PO (17:20)
[2023-07-18 20:06] VITALS: BP 120/91; PULSE 67; RESP 18; TEMP 36.6; O2SAT 97
--- NOTE | 2023-07-18 20:40 | PM.OBPNVD ---
OB - PN: Subj Subjective Date/time seen: 07/18/23 20:35 Interval history: CNM received call from RN. Pt requesting discharge home. Baby transferred to [facility]. Tolerating po food and fluids. Pain controlled with PO medication. Urinating without difficulty. Ambulating without dizziness. Still denies feeling FLETCHER, visual changes, RUQ pain, or having increase in edema. Per RN, last BP WNL. Plan of care discussed with Dr. Kameron Bobo. Plan for repeat CBC, CMP now. If stable, ok for discharge with follow up appt on 07/20/23 for BP check. OB - PN: Obj Data Labs 07/18/23 04:07 07/18/23 09:10 Labs: Laboratory Results - last 24 hr 07/18/23 07/18/23 04:07 09:10 Hgb 11.8 L Hct 36.4 L Sodium 135 L Potassium 3.5 Chloride 103 Carbon Dioxide 26 Anion Gap 6 BUN 6 L Creatinine 0.60 L Estim Creat Clear Calc 108 Estimated GFR > 60 Glucose 90 Calcium 8.9 Total Bilirubin 0.5 AST 64 H ALT 38 H Alkaline Phosphatase 243 H Total Protein 7.0 Albumin 3.9 OB - PN A/P Time Spent With Patient Time: Total time spent is greater than 50% in coordination of care (as documented) at patient's floor/unit and/or counseling patient:
[2023-07-18 20:54] LABS: Hematocrit 37.4 % (37.0-47.0); Hemoglobin 12.5 g/dL (12.0-15.0); Mean Corpuscular HGB Conc 33.4 g/dl (32-36); Mean Corpuscular Hemoglobin 29.6 pg (26-34); Mean Corpuscular Volume 88.6 fl (80-100); Mean Platelet Volume 11.6 fl (7.4-10.4); Platelet Count Result 255 k/mm3 (150-375); Red Blood Count 4.22 M/mm3 (4.2-5.4); Red Cell Distribution Width 13.5 % (11.5-14.5); White Blood Count 12.4 K/mm3 (4.5-10.0)
[2023-07-18 21:06] LABS: Alanine Aminotransferase 43 U/L (6-35); Albumin Level 3.9 g/dL (3.5-5.1); Alkaline Phosphatase 244 U/L (38-126); Anion Gap 8 mmol/L (4-12); Aspartate Amino Transferase 61 U/L (14-36); Bilirubin,Total 0.8 mg/dL (0.2-1.3); Blood Urea Nitrogen 9 mg/dL (7-17); Calcium 8.9 mg/dL (8.4-10.2); Carbon Dioxide 26 mmol/L (22-30); Chloride 102 mmol/L (98-107); Estimated CRCL calculation 108 ml/min; Estimated Glomerular Filt Rate > 60; Glucose 123 mg/dL (65-110); Potassium 3.2 mmol/L (3.4-5.0); Sodium 136 mmol/L (137-145)
--- NOTE | 2023-07-18 21:32 | PM.OBPNVD ---
OB - PN: Subj Subjective Date/time seen: 07/18/23 21:32 Interval history: CBC and CMP reviewed. Due to hypokalemia, recommend potassium supplement prior to DC. Ordered and instructed RN to administer prior to pt discharge. If declines, recommend pt remain inpatient overnight. OB - PN: Obj Data Labs 07/18/23 20:47 07/18/23 20:47 Labs: Laboratory Results - last 24 hr 07/18/23 07/18/23 07/18/23 04:07 09:10 20:47 WBC 12.4 H RBC 4.22 Hgb 11.8 L 12.5 Hct 36.4 L 37.4 MCV 88.6 MCH 29.6 MCHC 33.4 RDW 13.5 Plt Count 255 MPV 11.6 H Sodium 135 L 136 L Potassium 3.5 3.2 L Chloride 103 102 Carbon Dioxide 26 26 Anion Gap 6 8 BUN 6 L 9 Creatinine 0.60 L 0.60 L Estim Creat Clear Calc 108 108 Estimated GFR > 60 > 60 Glucose 90 123 H Calcium 8.9 8.9 Total Bilirubin 0.5 0.8 AST 64 H 61 H ALT 38 H 43 H Alkaline Phosphatase 243 H 244 H Total Protein 7.0 7.0 Albumin 3.9 3.9 OB - PN A/P Time Spent With Patient Time: Total time spent is greater than 50% in coordination of care (as documented) at patient's floor/unit and/or counseling patient:
[2023-07-18] MEDS: FAMOTIDINE 10 MG TABLET PO (21:49)
[2023-07-18] MEDS: CAPSAICIN 0.025% CREAM 60 GM TUBE 1 APPLIC TOPICAL (21:49)
[2023-07-18] MEDS: POTASSIUM CHLORIDE 20 MEQ PACKET (FOR LIQUID) 40 MEQ PO (22:33)
== END 2023-07-18 22:42 | disposition home or self-care (01) | DRG 560 ==
LOC: ANHLDR 08:48 → ANHOB2 12:10
PROVIDERS: Advanced Practice Midwife; Admitting Provider Obstetrics & Gynecology Gynecology; Visit Provider Obstetrics & Gynecology Gynecology
DX: O99.324 Drug use complicating childbirth (principal); Z37.0 Single live birth; Z3A.39 39 weeks gestation of pregnancy; O71.82 Other specified trauma to perineum and vulva; O99.285 Endocrine, nutritional and metabolic diseases complicating the puerperium; E87.6 Hypokalemia; O99.344 Other mental disorders complicating childbirth; F41.9 Anxiety disorder, unspecified; O90.89 Other complications of the puerperium, not elsewhere classified; R11.2 Nausea with vomiting, unspecified; F12.90 Cannabis use, unspecified, uncomplicated
CPT/HCPCS: 36415; 80053; 80307; 85014; 85018; 85025; 85027; 86592; 86703; 86850; 86900; 86901; A9270; G0432; J1885; J2405; J2590; J2795; J3010; J3410; J7120; J7121

== ENCOUNTER 2023-07-20 10:28 | Outpatient (CLI) | payer OTHER, SELFPAY ==
[2023-07-20] VITALS (15 sets, daily range): BP systolic 100–152; BP diastolic 66–108; PULSE 59–97
[2023-07-20 11:15] LABS: Basophils Percent Auto 0.4 % (0.2-1.2); Eosinophils Absolute Auto 0.2 K/mm3 (0-0.3); Hematocrit 41.1 % (37.0-47.0); Hemoglobin 13.1 g/dL (12.0-15.0); Immature Granulocyte Absolute 0.03 K/mm3 (0.00-0.031); Immature Granulocyte Percent A 0.3 % (0-0.5); Lymphocytes Absolute Auto 2.05 K/mm3 (0.9-3.2); Lymphocytes Percent Auto 20.6 % (18.3-44.2); Mean Corpuscular HGB Conc 31.9 g/dl (32-36); Mean Corpuscular Hemoglobin 28.8 pg (26-34); Mean Corpuscular Volume 90.3 fl (80-100); Mean Platelet Volume 11.2 fl (7.4-10.4); Monocytes Absolute Auto 0.6 K/mm3 (0.1-0.6); Monocytes Percent Auto 5.6 % (2.6-8.5); Neutrophils Absolute Auto 7.1 K/mm3 (1.3-6.7); Neutrophils Percent Auto 71.1 % (45.5-73.1); Platelet Count Result 317 k/mm3 (150-375); Red Blood Count 4.55 M/mm3 (4.2-5.4); Red Cell Distribution Width 13.3 % (11.5-14.5)
[2023-07-20 11:29] LABS: Alanine Aminotransferase 65 U/L (6-35); Albumin Level 4.2 g/dL (3.5-5.1); Alkaline Phosphatase 206 U/L (38-126); Anion Gap 12 mmol/L (4-12); Aspartate Amino Transferase 46 U/L (14-36); Bilirubin,Total 0.8 mg/dL (0.2-1.3); Blood Urea Nitrogen 15 mg/dL (7-17); Calcium 8.8 mg/dL (8.4-10.2); Carbon Dioxide 23 mmol/L (22-30); Chloride 102 mmol/L (98-107); Estimated Glomerular Filt Rate > 60; Glucose 81 mg/dL (65-110); Potassium 3.4 mmol/L (3.4-5.0); Sodium 137 mmol/L (137-145); Uric Acid 7.1 mg/dL (2.5-7.5)
[2023-07-20] MEDS: LABETALOL HCL 100 MG TABLET PO (13:16)
--- NOTE | 2023-07-20 13:38 | PM.OBTRLD ---
OB - Triage/Final Diagnosis Visit Information Date of evaluation: 07/20/23 Reason for evaluation: other (pp htn) Comments/Additional reasons for admission: I have assessed the risk for this patient, Aisha Cuevas, and determined that she would benefit from observation care. Evaluation Laboratory results: Laboratory Tests 07/20/23 11:07 WBC 10.0 RBC 4.55 Hgb 13.1 Hct 41.1 MCV 90.3 MCH 28.8 MCHC 31.9 L RDW 13.3 Plt Count 317 MPV 11.2 H Immature Gran % (Auto) 0.3 Neut % (Auto) 71.1 Lymph % (Auto) 20.6 [place] % (Auto) 5.6 Eos % (Auto) 2.0 Baso % (Auto) 0.4 Lymph # (Auto) 2.05 [place] # (Auto) 0.6 Eos # (Auto) 0.2 Baso # (Auto) 0.0 Abs Immat Gran (auto) 0.03 Absolute Neuts (auto) 7.1 H Absolute Nucleated RBC 0.000 Nucleated RBC % 0.0 Sodium 137 Potassium 3.4 Chloride 102 Carbon Dioxide 23 Anion Gap 12 BUN 15 D Creatinine 0.70 Estim Creat Clear Calc Not Reportable Estimated GFR > 60 Glucose 81 Uric Acid 7.1 Calcium 8.8 Total Bilirubin 0.8 AST 46 H ALT 65 H Alkaline Phosphatase 206 H Total Protein 7.0 Albumin 4.2 Vital signs: Vital Signs - 24 hr 07/20/23 10:45 07/20/23 11:00 07/20/23 11:15 Pulse Rate 59 L 64 66 Blood Pressure 146/95 H 141/87 H 152/108 H 07/20/23 12:29 07/20/23 12:45 07/20/23 13:00 Pulse Rate 88 81 81 Blood Pressure 117/82 119/85 128/85 07/20/23 13:15 07/20/23 13:16 Pulse Rate 70 70 Blood Pressure 140/91 H
== END 2023-07-20 15:10 | disposition home or self-care (01) ==
LOC: ANHOBOP 10:44 → ANHOBPP 10:44
PROVIDERS: Obstetrics & Gynecology; Visit Provider Obstetrics & Gynecology Gynecology
DX: O13.9 Gestational [pregnancy-induced] hypertension without significant proteinuria, unspecified trimester (principal); Z3A.00 Weeks of gestation of pregnancy not specified
CPT/HCPCS: 36415; 80053; 84550; 85025; 99199; A9270

== ENCOUNTER 2023-07-22 15:32 | Outpatient (CLI) | payer OTHER, SELFPAY ==
[2023-07-22] VITALS (7 sets, daily range): BP systolic 101–145; BP diastolic 64–101; PULSE 64–81
--- NOTE | 2023-07-22 16:35 | PC.NURSE ---
Patient states that she wet the bed after vomiting. Linens changed and labs drawn as ordered. Patient requesting to go shower to help with nausea.
[2023-07-22] MEDS: LABETALOL HCL 100 MG TABLET 200 MG PO (16:36)
[2023-07-22 16:42] LABS: Basophils Percent Auto 0.5 % (0.2-1.2); Eosinophils Absolute Auto 0.2 K/mm3 (0-0.3); Eosinophils Percent Auto 2.8 % (0-4.4); Hematocrit 41.7 % (37.0-47.0); Hemoglobin 13.2 g/dL (12.0-15.0); Immature Granulocyte Absolute 0.02 K/mm3 (0.00-0.031); Immature Granulocyte Percent A 0.3 % (0-0.5); Lymphocytes Absolute Auto 2.15 K/mm3 (0.9-3.2); Lymphocytes Percent Auto 28.3 % (18.3-44.2); Mean Corpuscular HGB Conc 31.7 g/dl (32-36); Mean Corpuscular Hemoglobin 28.8 pg (26-34); Mean Platelet Volume 11.1 fl (7.4-10.4); Monocytes Absolute Auto 0.4 K/mm3 (0.1-0.6); Monocytes Percent Auto 5.8 % (2.6-8.5); Neutrophils Absolute Auto 4.7 K/mm3 (1.3-6.7); Neutrophils Percent Auto 62.3 % (45.5-73.1); Platelet Count Result 325 k/mm3 (150-375); Red Blood Count 4.58 M/mm3 (4.2-5.4); Red Cell Distribution Width 13.2 % (11.5-14.5); White Blood Count 7.6 K/mm3 (4.5-10.0)
[2023-07-22 16:46] LABS: Alanine Aminotransferase 45 U/L (6-35); Albumin Level 4.2 g/dL (3.5-5.1); Alkaline Phosphatase 162 U/L (38-126); Anion Gap 8 mmol/L (4-12); Aspartate Amino Transferase 28 U/L (14-36); Bilirubin,Total 0.7 mg/dL (0.2-1.3); Blood Urea Nitrogen 10 mg/dL (7-17); Calcium 9.1 mg/dL (8.4-10.2); Carbon Dioxide 27 mmol/L (22-30); Chloride 102 mmol/L (98-107); Estimated Glomerular Filt Rate > 60; Glucose 98 mg/dL (65-110); Potassium 3.7 mmol/L (3.4-5.0); Sodium 137 mmol/L (137-145); Uric Acid 6.9 mg/dL (2.5-7.5)
--- NOTE | 2023-07-22 17:30 | PC.NURSE ---
Patient states that she is feeling better and requesting a sandwich and apple sauce.
--- NOTE | 2023-07-22 17:40 | PC.NURSE ---
Dr Gresham notified of improved BP's and patient feeling better. OK to dc home. Increase Labetalol to 200mg TID.
== END 2023-07-22 18:06 | disposition home or self-care (01) ==
LOC: ANHOBOP 15:36 → ANHOBPP 15:37
PROVIDERS: Obstetrics & Gynecology; Visit Provider Obstetrics & Gynecology Gynecology
DX: O13.9 Gestational [pregnancy-induced] hypertension without significant proteinuria, unspecified trimester (principal)
CPT/HCPCS: 36415; 80053; 84550; 85025; 99199; A9270

== ENCOUNTER 2023-09-10 00:50 | Day surgery (SDC) | payer OTHER, SELFPAY ==
[2023-09-04 13:57] VITALS: BMI 22.4
--- NOTE | 2023-09-04 14:01 | SUR.PREOP ---
Report to the Outpatient Waiting Room, entrance under the green pavilion located off [facility], at time 1000 on date 09/10/23. Planned Procedure Time: 1200. Time changes happen often and if your time is changed the preop area will call you the afternoon before. - You and your visitor will be asked to self-screen and do not enter if you have any COVID symptoms. - A mask is optional within the hospital at this time. Patients may have clear liquids (water, carbonated beverages, clear teas, apple juice) until 3 hours prior to surgery with a maximum of 20 ounces. - No food from midnight until time of surgery - Infants may have breast milk until 4 hours before surgery, formula 6 hours prior to surgery. - Children will be allowed to drink immediately following surgery. If applicable, please bring a bottle or sippy cup to assist with drinking. Juice, water, soda, and popsicles are readily available. For infants on formula, please bring formula the day of surgery. Pacifiers are allowed. Take the following medications with a SIP of water the morning of surgery: n/a DO NOT STOP ANY OF YOUR OTHER PRESCRIPTION MEDICATIONS PRIOR TO SURGERY ?EXCEPT THE FOLLOWING Medications to discontinue per physician n/a Date to take last dose Please no make-up, nail gambian, hairspray, perfume, deodorant, or body powder the day of surgery. No jewelry (including any body piercings) or valuables the day of surgery, leave them at home. Please take a shower or bath the night before, or the morning of, surgery with an antibacterial soap. Wear comfortable, loose fitting clothing. Children are encouraged to wear pajamas. - Jewelry must be removed prior to entering the operating room. Rings and piercings that are not removed may be cut off. - The hospital will not accept responsibility for valuables. - Please leave all valuables, including medications, at home the day of surgery. If you are going home after surgery, a licensed charter and tour bus driver must drive you home. - NO public transportation without another adult if you receive anesthesia. - We recommend that an adult stay with you for 24 hours following discharge. - We also recommend that you do not drive, make important decision, drink alcoholic beverages, or take any drugs that were not prescribed by your health care provider for at least 24 hours after your discharge time. For Pediatric surgeries, we recommend two adults accompany the child home. Follow any additional instructions given to you from your surgeon. If you or anyone in your household have experienced Covid symptoms in the past week, please notify your surgeon or the nurse liaison at the phone number below for possible testing. Telephone instructions given to __patient__and asked if any additional questions and then verbalized understanding. Patient advised to call surgeon office or pre surgery nurse liaison [phone] if any additional questions.
[2023-09-10] VITALS (7 sets, daily range): BP systolic 102–145; BP diastolic 34–99; PULSE 45–70; RESP 10–19; TEMP 36.1–36.7; O2SAT 99–100
--- NOTE | 2023-09-10 07:07 | WPDHPUPDATE1 ---
History and Physical Update Update Date/Time: 09/10/23 07:07 History and Physical has been reviewed, including an updated exam of the patient. There are NO changes in the patient's condition. Risks, benefits, and alternatives have been discussed and questions answered. Patient agrees to proceed with procedure.
--- NOTE | 2023-09-10 07:07 | PM.HPGS ---
History of Present Illness History of Present Illness Consent: Risks, benefits, and alternatives have been discussed and questions answered. Patient agrees to proceed with procedure. Chief complaint: Desire Sterilization Narrative: Aisha Cuevas is a 28 year old female 2 para 2 has completed her childbearing and requesting permanent sterilization. Plan is to proceed with laparoscopic bilateral salpingectomy. Risks infection, bleeding injury to internal organs, and tubal failure with increased risk of ectopic are reviewed. Patient voices understanding and agrees to proceed. Review of Systems Review of Systems: not repeated day of surgery; patient states no changes in status [facility] Past Medical History Medical History (Updated 09/10/23 @ 07:09 by Divya Patel MD) Anxiety Asthma childhood only (normal spontaneous vaginal delivery) 2020-severe hyperemesis, preeclampsia 2023 Surgical History Surgical History History of tympanostomy Family History Family History Father Alive and well Colon cancer Mother Alive and well Sibling Brain tumor Social History Social History Smoking packs per day: 0.5 Smoking cigarettes per day: 10.0 Years smoked: 10 Smoking pack-years: 5.00 Smoking status: Current every day smoker Tobacco type: cigarettes and e-cigarettes/vaping Second hand tobacco smoke exposure: Yes Smoking end date: 01/06/20 Additional smoking assessment comments: HAS BEEN SMOKING PUFF BAR SINCE NOVEMBER 2019 Alcohol intake: current Alcohol use details: 1/MONTH Substance use: current Substance use type: marijuana Other substance usage details: OCCASIONAL MARIJUANA Do You Feel Safe in your Home?: No Lack of Transportation: No Lack of Food: Never True Current Housing: I Have Housing Concerned About Future Housing: No Difficulty Paying Gas/Electric Bills: No Difficulty Paying for Meds: No Currently Unemployed: No Education: High School Diploma/GED Difficulty w/ Childcare or Family Care: No Living arrangements: with family Gender identity (if verbalized by the patient): Female Spiritual care concerns: No Meds Home Medications and Allergies Home Medications Medication Instructions Recorded Confirmed Type No Home Medications 09/04/23 09/04/23 History Allergies Allergy/AdvReac Type Severity Reaction Status Date / Time metoclopramide AdvReac Unknown Anxiety Verified 06/22/23 14:15 prochlorperazine AdvReac Anxiety Verified 09/04/23 13:55 [From Compazine] Exam Const: General: healthy appearing and alert Orientation/consciousness: patient oriented x3 Resp: Effort & Inspection: normal respiratory effort : External Female Exam: normal external appearance Speculum Exam - Vagina: normal appearance of the vagina and normal vaginal discharge Speculum Exam - Cervix: normal appearance of the cervix Bimanual exam- vagina & uterus: uterine size normal and consistency normal Bimanual Exam- Adnexa, other: normal adnexae and No adnexal tenderness Neuro: General: patient oriented x3 Assessment and Plan Assessment and plan (1) Encounter for sterilization: Code(s): Z30.2 - Encounter for sterilization Status: Acute Assessment and Plan: Plan to proceed with laparoscopic bilateral salpingectomy
[2023-09-10] MEDS: LACTATED RINGERS 1,000 ML 30 ML IV CONT ×2 (08:30→10:38)
[2023-09-10] MEDS: ACETAMINOPHEN 500 MG TABLET 1000 MG PO (08:59)
[2023-09-10] MEDS: KETOROLAC 15 MG/ML VIAL (*BKC) IV PUSH (09:00)
--- NOTE | 2023-09-10 09:22 | WPDANESEPPF ---
Anes - Initial Pre Proc Eval Procedure: Operation Date: 09/10/23 10:30 Proposed Procedures p Laparoscopic Bilateral Salpingectomy - Divya Patel MD Date/Time: 09/10/23 09:22 Surgeon: Divya Patel MD Pre Op Diagnosis: Desire Sterilization Patient Data Age: 28 Gender: F Height: 1.57 m Weight: 55.79 kg Allergies Allergy/AdvReac Type Severity Reaction Status Date / Time metoclopramide AdvReac Unknown Anxiety Verified 06/22/23 14:15 prochlorperazine AdvReac Anxiety Verified 09/04/23 13:55 [From Compazine] Home Medications Medication Instructions Recorded Confirmed Type No Home Medications 09/04/23 09/04/23 History Patient hx anesthesia problems: none Family hx anesthesia problems: none Results Review: All pre-operative results and documents have been reviewed as part of the pre-operative evaluation. [facility] Past Medical History Medical History (Updated 09/10/23 @ 07:09 by Divya Patel MD) Anxiety Asthma childhood only (normal spontaneous vaginal delivery) 2020-severe hyperemesis, preeclampsia 2023 Surgical History Surgical History History of tympanostomy Family History Family History Father Alive and well Colon cancer Mother Alive and well Sibling Brain tumor Social History Social History Smoking packs per day: 0.5 Smoking cigarettes per day: 10.0 Years smoked: 10 Smoking pack-years: 5.00 Smoking status: Current every day smoker Tobacco type: cigarettes and e-cigarettes/vaping Second hand tobacco smoke exposure: Yes Smoking end date: 01/06/20 Additional smoking assessment comments: HAS BEEN SMOKING PUFF BAR SINCE NOVEMBER 2019 Alcohol intake: current Alcohol use details: 1/MONTH Substance use: current Substance use type: marijuana Other substance usage details: OCCASIONAL MARIJUANA Do You Feel Safe in your Home?: No Lack of Transportation: No Lack of Food: Never True Current Housing: I Have Housing Concerned About Future Housing: No Difficulty Paying Gas/Electric Bills: No Difficulty Paying for Meds: No Currently Unemployed: No Education: High School Diploma/GED Difficulty w/ Childcare or Family Care: No Living arrangements: with family Gender identity (if verbalized by the patient): Female Spiritual care concerns: No Anes - Eval Final PreProcedure Day of Procedure 09/10/23 09:22 Patient weight: normal Heart: regular rate and rhythm Lungs: clear to auscultation Airway: Mallampati scale class II Neurological: alert and oriented Last oral intake: >/= 8 hours ASA classification: II Emergent: no Anesthetic plan: proceed Anesthesia type and monitoring: general ETT and standard monitoring Results Review: All pre-operative results and documents have been reviewed as part of the pre-operative evaluation. Informed Consent: The patient's anesthetic plan and its attendant risks and benefits were discussed with the patient/family/POA. Questions were solicited and answers provided to the satisfaction of the patient/family/POA.
[2023-09-10 09:52] LABS: BEDSIDEPREGUCG Negative
--- NOTE | 2023-09-10 10:31 | P.OP_ITS ---
Procedure Note - Detailed Date of Procedure 09/10/23 Pre-op Diagnosis Desire Sterilization Post-op Diagnosis Same Procedure Performed laparoscopic Bilateral salpingectomy Surgeon Divya Patel MD Anesthesia General Findings the uterus, tubes, ovaries appear grossly normal Description of Procedure The patient is taken the operating room placed under anesthesia in the dorsal position. She was prepped and draped in the usual sterile fashion. The felicitas dder was drained with a red rubber catheter. Viburnum speculum is placed in the vagina cervix grasped on the anterior lip tenaculum. The acorn manipulator was placed. Attention was then turned to the abdomen where a vertical skin incision was made with a scalpel. The abdomen is tented Veress needle placed. Opening patient pressure was 5mmHg. Pneumoperitoneum was obtained using CO2 to a patient pressure of 15mmHg. The Veress needle was then removed and the abdomen tented and the 5mm trocar placed. Intra-abdominal placement was confirmed. The patient was placed in Trendelenburg 2 additional incisions were made 2cm above the symphysis pubis 1 to the left 1 to the right of midline. 5Mm trocars were placed under direct visualization. The blunt probe was used to bring the tubes into the surgical field. The right tube was grasped with an atraumatic grasper. The mesosalpinx is cauterized and cut using a LigaSure device. Once the cornu was reached the tube was crossclamped and excised. The identical procedure was performed on the opposite side. Good hemostasis is obtained. Instruments are removed and the pneumoperitoneum was reduced. Skin incisions were closed using 4-0 nylon in an interrupted fashion. Sponge, needle, and instrument counts are correct per the OR staff. Patient was awakened from anesthesia and taken to recovery in stable condition. Estimated Blood Loss 5 Drains No Packing No Pathology Yes ( Bilateral tubes) Complications No immediate complications Condition Stable Disposition PACU
[2023-09-10] MEDS: oxyCODONE HCL (*CRX) 5 MG TAB IR PO (11:53)
== END 2023-09-10 12:28 | disposition home or self-care (01) ==
PROVIDERS: Visit Provider Obstetrics & Gynecology Gynecology
PROC: (CPT 49320; principal; 2023-09-10 10:30)
DX: Z30.2 Encounter for sterilization (principal); F41.9 Anxiety disorder, unspecified; J45.909 Unspecified asthma, uncomplicated; F17.210 Nicotine dependence, cigarettes, uncomplicated; F12.90 Cannabis use, unspecified, uncomplicated; Z98.890 Other specified postprocedural states; Z80.0 Family history of malignant neoplasm of digestive organs
CPT/HCPCS: 58661; 88302; 88342; A9270; J1100; J1885; J2250; J2405; J2704; J3010; J7120

== ENCOUNTER 2023-10-23 08:13 | Emergency (ER) | payer OTHER, SELFPAY ==
--- NOTE | ~2023-10-23 | XR_ITS ---
XR ankle RT min 3V Ordering provider: Jose Luis Black APRN History: . rt lateral ankle pain . Comparison: None. FINDINGS: BONES: No acute fracture or dislocation. JOINT SPACES: Normal. SOFT TISSUES: Normal. IMPRESSION: No acute osseous abnormality of the right ankle. Reviewed, dictated and finalized at location A.
--- NOTE | 2023-10-23 08:13 | ED.LOWEXIN ---
HPI - Extremity Injury (Lower) General Chief Complaint: Extremity Injury, Lower Stated Complaint: Right Ankle Pain Time Seen by Provider: 10/23/23 08:13 Source: patient Mode of arrival: ambulatory Limitations: no limitations History of Present Illness HPI Narrative: Aisha is a 28-year-old female patient presenting to the clinic today with complaints of right ankle pain x3 days. She reports she was initially playing soccer with her 6-year-old when she rolled (inverted) her right ankle and felt a pop. Is having pain to the lateral posterior ankle. States that she re-injured yesterday when stepping on a toy. Has been resting, icing and taking ibuprofen for her symptoms. Related Data Allergies Allergy/AdvReac Type Severity Reaction Status Date / Time metoclopramide AdvReac Intermediate Anxiety Verified 10/23/23 08:20 prochlorperazine AdvReac Intermediate Anxiety Verified 10/23/23 08:20 [From Compazine] Review of Systems Review of Systems: Pertinent positives per HPI. Patient denies any fever, chills, rash, headache, visual changes, dizziness, cough, runny nose, sore throat, shortness of breath, chest pain, palpitations, nausea, vomiting, diarrhea, constipation, abdominal pain, or any urinary issues. [facility] Past Medical History Medical History Anxiety Asthma childhood only (normal spontaneous vaginal delivery) 2020-severe hyperemesis, preeclampsia 2023 Surgical History Surgical History History of tympanostomy Family History Family History Father Alive and well Colon cancer Mother Alive and well Sibling Brain tumor Social History Social History Smoking packs per day: 0.5 Smoking cigarettes per day: 10.0 Years smoked: 10 Smoking pack-years: 5.00 Smoking status: Current every day smoker Tobacco type: cigarettes and e-cigarettes/vaping Second hand tobacco smoke exposure: Yes Smoking end date: 01/06/20 Additional smoking assessment comments: HAS BEEN SMOKING PUFF BAR SINCE NOVEMBER 2019 Alcohol intake: current Alcohol use details: 1/MONTH Substance use: current Substance use type: marijuana Other substance usage details: OCCASIONAL MARIJUANA Do You Feel Safe in your Home?: No Lack of Transportation: No Lack of Food: Never True Current Housing: I Have Housing Concerned About Future Housing: No Difficulty Paying Gas/Electric Bills: No Difficulty Paying for Meds: No Currently Unemployed: No Education: High School Diploma/GED Difficulty w/ Childcare or Family Care: No Living arrangements: with family Gender identity (if verbalized by the patient): Female Spiritual care concerns: No Comments At the time of my signature, I reviewed and agree with the nursing past medical, surgical, social, and family history. There is no relevant family history pertinent to the patient complaint. Exam Narrative: General: Well-developed, well nourished, in no apparent distress Head: Normocephalic, atraumatic. Cardio: Regular rate and rhythm, s1 and s2 normal, no murmur appreciated. Resp: Clear to auscultation bilaterally, no rhonchi, rales, wheezing or rubs. Musculoskeletal: No deformity, tender to palpation over the right lateral and posterior ankle, pain with dorsal flexion and plantar flexion against resistance as well as with turning the ankle inward, grossly normal range of motion, muscle strength strong and equal, peripheral pulse strong, no edema, no cyanosis, normal gait and station Course Course Emergency Course: Portions of this record may have been created with voice recognition software. Level of Care: Express Care Visit Vital Signs Vital signs: Vital signs reviewed MDM - Extremity Injury (
[2023-10-23 08:21] VITALS: BP 111/75; PULSE 57; RESP 16; TEMP 37.1; O2SAT 100
== END 2023-10-23 09:00 | disposition home or self-care (01) ==
PROVIDERS: Emergency Provider Nurse Practitioner Family
DX: S93.401A Sprain of unspecified ligament of right ankle, initial encounter (principal); W22.8XXA Striking against or struck by other objects, initial encounter; F17.290 Nicotine dependence, other tobacco product, uncomplicated; F12.90 Cannabis use, unspecified, uncomplicated
CPT/HCPCS: 73610; 99213; G0463

== ENCOUNTER 2024-02-07 08:05 | Emergency (ER) | payer OTHER, SELFPAY ==
--- NOTE | 2024-02-07 08:09 | ED.URI ---
HPI - URI/Sore Throat General Chief Complaint: Upper Respiratory Infection Stated Complaint: cough,sore throat,neck pain Exp to flu Time Seen by Provider: 02/07/24 08:09 Source: patient Mode of arrival: ambulatory Limitations: no limitations History of Present Illness HPI Narrative: Patient is a 28-year-old female who presents with congestion and sore throat that started Sunday, cough started today. Patient states she felt fine yesterday. Reports children have had the flu. Denies any fever, chills, nausea vomiting, diarrhea. Has been taking Tylenol, ibuprofen DayQuil. Related Data Allergies Allergy/AdvReac Type Severity Reaction Status Date / Time metoclopramide AdvReac Intermediate Anxiety Verified 02/07/24 08:17 prochlorperazine (From AdvReac Intermediate Anxiety Verified 02/07/24 08:17 Compazine) Review of Systems Review of Systems: All systems reviewed & are unremarkable except as noted in HPI and below Constitutional: Constitutional: Denies body ache(s), Denies chills, Denies fatigue, Denies fever(s), Denies headache(s), Denies malaise and Denies weakness Eyes: Eyes: Denies blurry vision, Denies itchy eyes and Denies loss of vision ENT: Denies otalgia, Denies headache(s), Reports nasal congestion, Denies sinus pain and Reports sore throat Cardiovascular: Cardiovascular: Denies chest pain, Denies irregular heart rhythm and Denies dyspnea Respiratory: Respiratory: Reports cough and Denies dyspnea Gastrointestinal: Gastrointestinal: Denies abdominal pain, Denies diarrhea, Denies nausea and Denies vomiting Musculoskeletal: Musculoskeletal: Denies back pain, Denies myalgias and Denies arthralgias Integumentary/Breasts: Skin/Breast: Denies pruritus and Denies rash Neurologic: Denies headache(s), Denies loss of vision and Denies weakness Psychiatric: Psychiatric: Reports no additional psychiatric complaints Endocrine: Endocrine: Denies fatigue Allergic/Immunologic: Allergic/Immunologic: Denies itchy eyes PMFSH Past Medical History Medical History (normal spontaneous vaginal delivery) 2020-severe hyperemesis, preeclampsia 2023 Anxiety Asthma childhood only Surgical History Surgical History History of tympanostomy Family History Family History Father Alive and well Colon cancer Mother Alive and well Sibling Brain tumor Social History Social History Smoking packs per day: 0.5 Smoking cigarettes per day: 10.0 Years smoked: 10 Smoking pack-years: 5.00 Smoking status: Current every day smoker Tobacco type: cigarettes and e-cigarettes/vaping Second hand tobacco smoke exposure: Yes Smoking end date: 01/06/20 Additional smoking assessment comments: HAS BEEN SMOKING PUFF BAR SINCE NOVEMBER 2019 Alcohol intake: current Alcohol use details: 1/MONTH Substance use: current Substance use type: marijuana Other substance usage details: OCCASIONAL MARIJUANA Do You Feel Safe in your Home?: No Lack of Transportation: No Lack of Food: Never True Current Housing: I Have Housing Concerned About Future Housing: No Difficulty Paying Gas/Electric Bills: No Difficulty Paying for Meds: No Currently Unemployed: No Education: High School Diploma/GED Difficulty w/ Childcare or Family Care: No Living arrangements: with family Gender identity (if verbalized by the patient): Female Spiritual care concerns: No Comments At time of signature, agree with nursing past medical, surgical, social and family history. There is no relevant family history pertinent to the presenting complaint. Exam Const: General: cooperative, healthy appearing, comfortable, no acute distress and well nourished Nutritional Appearance: well nourished Orientation/consciousness: patient oriented x3 Limitations: no limitations HENMT: Head: normal to inspection, normocephalic and atraumatic Ears: hearing grossly normal bilaterally, external ears normal, TM's normal bilaterally, EAC's normal and no periauricular adenopathy Face/Nose/Sinus: Normal external nose present, Abnormal mucous membranes and turbinates present erythematous bilateral and diffuse, normal facial exam, sinuses nontender and face symmetric Face and sinus: normal facial exam, sinuses nontender and face symmetric Mouth: Yes Normal oral and palatal mucosa present, Yes lip normal, Yes tongue normal, Yes Normal salivary glands and ducts present, Yes oropharynx normal and Yes moist mucous membranes Teeth and gingiva: dentition normal Throat: posterior oropharynx normal, tonsils normal and uvula midline Eyes: General: appearance normal, both eyes and all related structures Alignment and Position: alignment normal and position normal Periorbital: periorbital findings normal Eyelids: eyelids normal Pupils: Equal, round and reactive pupils present Neck: Neck: normal visual inspection, full ROM, no lymphadenopathy and supple Chest: Chest palpation & inspection: normal inspection of the chest and normal palpation of entire chest wall Resp: Effort & Inspection: normal respiratory effort and able to speak in complete sentences Auscultation: clear to auscultation bilaterally, no crackles, no rales, no rhonchi and no wheezes Cardio: Rate: regular rate Rhythm: regular rhythm Heart sounds: S1 normal heart sound present and S2 normal heart sound present GI: Inspection: normal to inspection Skin: General skin exam: normal color and no rashes or lesions noted Neuro: General: patient oriented x3 and moves all extremities Cranial nerves: Yes Equal, round and reactive pupils present Speech: normal speech Gait exam (Neuro): Normal gait present Extrem: General: normal to inspection, full ROM and no edema Psych: Appearance: grossly normal and well kempt Mental Status: mental status grossly normal Speech and movement: Normal speech and movement present Affect: normal affect Attitude: cooperative Thought process: Normal thought process present Course Course Emergency Course: Discharge instructions reviewed with patient, as well as provided in writing per nursing staff. The instructions also include specific and strict return/GO TO THE ER as well as f/u information. All questions have been answered, and the patient deny any further questions with discharge and discharge plan. Portions of this record may have been created with voice recognition software Level of Care: Express Care Visit Vital Signs Vital signs: Vital Signs Temperature 36.4 C L 02/07/24 08:18 Pulse Rate 65 02/07/24 08:18 Respiratory Rate 16 02/07/24 08:18 Blood Pressure 105/66 02/07/24 08:18 Pulse Oximetry 99 02/07/24 08:18 Oxygen Delivery Room Air 02/07/24 08:18 Temperature 36.4 C L 02/07/24 08:18 Pulse Rate 65 02/07/24 08:18 Respiratory Rate 16 02/07/24 08:18 Blood Pressure 105/66 02/07/24 08:18 Pulse Oximetry 99 02/07/24 08:18 Oxygen Delivery Room Air 02/07/24 08:18 Reviewed MDM - URI/Sore Throat MDM Narrative Medical decision making narrative: Pt well hydrated appearing, in no respiratory distress, hemodynamically stable. Recommend supportive care. The patient is stable at time of discharge the clinical impression was discussed and the patient was given the opportunity to ask questions, which were addressed as completely as possible given the information available at present. Anticipatory guidance and return to care precautions were discussed and the importance of primary care follow-up was stressed and encouraged. The patient voiced understanding of the plan, indications to return, and the need for follow-up. Differential diagnosis considered: Dewitt virus, strep pharyngitis, allergic rhinitis, upper respiratory tract infection, sinusitis, rhinosinusitis, nasopharyngitis. viral pharyngitis, otitis media, otitis externa, otitis effusion, foreign body, cerumen impaction, viral syndrome, and influenza.? Exam findings show no acute concerns or changes; patient is non-toxic appearing and is in no distress.? Patient is appropriate for outpatient treatment and follow-up.? Medical Records Attestation: I reviewed the patient's medical records. Lab Data Attestation: I reviewed the patient's lab results. Labs: Lab Results 02/07/24 Range/Units 08:45 POC Influenza A Ag Negative (Negative) POC Influenza B Ag Negative (Negative) POC SARS CoV-2 Ag Negative (Negative) POC Grp A Strep Screen Negative (Negative) Discharge Plan Discharge Clinical Impression: Upper respiratory infection Patient Disposition: Home, Self-Care Condition: Stable Instructions: Upper Respiratory Infection (ED) Additional Instructions: Your rapid strep swab was negative today at [facility]. A throat culture will be sent to the laboratory for further testing. If the test is positive, you will receive a phone call within 48 hours and an appropriate antibiotic will be initiated at that time. Your Covid and flu are both negative Your symptoms are likely due to a viral illness, which is not treated with antibiotics. Viral symptoms can be present for up to a few weeks. -Alternate Tylenol and Motrin per package directions for fever or pain. -Antihistamine medication such as Benadryl/Zyrtec at night and Claritin/Rita during the day can help improve symptoms. -Use Flonase twice a day for 5 days then daily to help reduce the inflammation and dry up your sinuses. -You can also use Sudafed behind the pharmacy counter(12 or 24 hour). Be sure to drink plenty of water with these medications at least 8 ounces with every dose and it is important to drink 8 to 10 glasses of water per day. Water is a natural decongestant -Eat and drink things that are easy to swallow, like tea or soup, or popsicles. -Oral rinses such as: Salt water gargles and/or may use topical anesthetic (eg. Chloraseptic spray) or lozenges to relieve dryness or throat pain). -Frequent hand washing or hand administrative resources associate is one of the best ways to prevent spread of infection. -Using a vaporizer or humidifier at night will also help thin secretions and help with coughing up phlegm. -Follow up with primary care provider in 3-5 days if condition is not improving - For new or worsening symptoms go directly to the nearest ER Patient Language: Luxembourgish Prescriptions: New benzonatate 100 mg capsule 100 mg PO BID PRN (Reason: cough) Qty: 14 0RF fluticasone propionate [Flonase Allergy Relief] 50 mcg/actuation spray,suspension 1 spray intranasal DAILY Qty: 16 0RF Rx Instructions: administer into each nostril loratadine 10 mg tablet 10 mg PO DAILY Qty: 30 0RF Follow-up/Referrals: PHYSICIAN,CAR BODY DESIGNER [Primary Care Provider] - Cesar Pinto MD [Physician] - 3 Days Stand Alone Forms: Work/School Release IP Time of Disposition: 08:51
[2024-02-07 08:18] VITALS: BP 105/66; PULSE 65; RESP 16; TEMP 36.4; O2SAT 99
[2024-02-07 08:48] LABS: EDCOVIDSCREEN Negative (Negative); EDINFLUASCREEN Negative (Negative); EDINFLUBSCREEN Negative (Negative); EDSTREPNEGPOS1 Negative (Negative)
== END 2024-02-07 08:53 | disposition home or self-care (01) ==
PROVIDERS: Emergency Provider Nurse Practitioner Family
DX: J06.9 Acute upper respiratory infection, unspecified (principal); Z20.822 Contact with and (suspected) exposure to COVID-19; F17.290 Nicotine dependence, other tobacco product, uncomplicated
CPT/HCPCS: 87081; 87426; 87804; 87880; 99213; G0463

== ENCOUNTER 2024-02-12 17:25 | Emergency (ER) | payer OTHER, SELFPAY ==
--- NOTE | 2024-02-12 17:41 | ED.URI ---
HPI - URI/Sore Throat General Chief Complaint: Upper Respiratory Infection Stated Complaint: symptoms of strep Time Seen by Provider: 02/12/24 18:00 Source: patient, RN notes reviewed and old records reviewed Mode of arrival: ambulatory Limitations: no limitations History of Present Illness HPI Narrative: Patient presents accompanied by her children. She is complaining of cough and sore throat that has been present for about 3 days. States that sore throat is aggravated by coughing. Denies any wheezing. No shortness of breath. Been taking [id number] medications with moderate relief. Is not in any distress, managing own secretions. No drooling or stridor noted. Related Data Allergies Allergy/AdvReac Type Severity Reaction Status Date / Time metoclopramide AdvReac Intermediate Anxiety Verified 02/12/24 17:30 prochlorperazine (From AdvReac Intermediate Anxiety Verified 02/12/24 17:30 Compazine) Review of Systems Review of Systems: All systems reviewed & are unremarkable except as noted in HPI and below Constitutional: Constitutional: Reports no additional constitutional complaints and Reports lethargy ENT: Reports system reviewed and no additional complaints, except as documented, Reports as per HPI, Reports nasal congestion and Reports sore throat Cardiovascular: Cardiovascular: Reports no additional cardiovascular complaints Respiratory: Respiratory: Reports no additional respiratory complaints, Reports chest congestion and Reports cough Gastrointestinal: Gastrointestinal: Reports no additional gastrointestinal complaints PMFSH Past Medical History Medical History (normal spontaneous vaginal delivery) 2020-severe hyperemesis, preeclampsia 2023 Anxiety Asthma childhood only Surgical History Surgical History History of tympanostomy Family History Family History Father Alive and well Colon cancer Mother Alive and well Sibling Brain tumor Social History Social History Smoking packs per day: 0.5 Smoking cigarettes per day: 10.0 Years smoked: 10 Smoking pack-years: 5.00 Smoking status: Current every day smoker Tobacco type: cigarettes and e-cigarettes/vaping Second hand tobacco smoke exposure: Yes Smoking end date: 01/06/20 Additional smoking assessment comments: HAS BEEN SMOKING PUFF BAR SINCE NOVEMBER 2019 Alcohol intake: current Alcohol use details: 1/MONTH Substance use: current Substance use type: marijuana Other substance usage details: OCCASIONAL MARIJUANA Do You Feel Safe in your Home?: No Lack of Transportation: No Lack of Food: Never True Current Housing: I Have Housing Concerned About Future Housing: No Difficulty Paying Gas/Electric Bills: No Difficulty Paying for Meds: No Currently Unemployed: No Education: High School Diploma/GED Difficulty w/ Childcare or Family Care: No Living arrangements: with family Gender identity (if verbalized by the patient): Female Spiritual care concerns: No Comments At the time of my signature, I reviewed and agree with the nursing past medical, surgical, social, and family history. There is no relevant family history pertinent to the patient complaint. Exam Const: General: cooperative, no acute distress, alert and awake Orientation/consciousness: oriented to person, oriented to place and oriented to time HENMT: Head: normal to inspection Ears: TM's normal bilaterally Mouth: Yes moist mucous membranes Throat: posterior oropharynx abnormal erythema Resp: Effort & Inspection: normal respiratory effort and able to speak in complete sentences Auscultation: clear to auscultation bilaterally, no crackles, no rales, no rhonchi and no wheezes Cardio: Palpation: normal PMI Rate: regular rate Rhythm: regular rhythm Heart sounds: S1 normal heart sound present and S2 normal heart sound present Neuro: General: oriented to person, oriented to place and oriented to time Cranial nerves: Yes CN's II-XII intact bilaterally Psych: Appearance: grossly normal Thought process: Normal thought process present Insight: Good insight present (Psych) Judgement: Good judgement present (Psych) Course Course Level of Care: Express Care Visit Vital Signs Vital signs: Reviewed MDM - URI/Sore Throat MDM Narrative Medical decision making narrative: Negative strep, culture pending. Negative flu, negative COVID. Symptoms likely viral in origin. Treat symptomatically. Patient nontoxic appearing is stable for discharge home. Discharge instructions reviewed with patient, as well as provided in writing per nursing staff. The instructions also include specific and strict return/GO TO THE ER as well as f/u information. All questions have been answered, and the patient deny any further questions with discharge and discharge plan. Some parts of this dictation were generated by voice recognition software and may contain typographical and/or grammatical inaccuracies. Differential Diagnosis Differential diagnosis: Likely upper respiratory infection, sinusitis, viral infection, influenza and pharyngitis Medical Records Attestation: I reviewed the patient's medical records. Lab Data Attestation: I reviewed the patient's lab results. Discharge Plan Discharge Clinical Impression: Upper respiratory infection Qualifiers: URI type: unspecified viral URI Qualified Code(s): J06.9 - Acute upper respiratory infection, unspecified Patient Disposition: Home, Self-Care Condition: Stable Instructions: Antibiotic Form, Upper Respiratory Infection (ED) Additional Instructions: Take medications as prescribed. Follow with primary care provider. Emergency department for new or worse symptoms Patient Language: Austrian Prescriptions: New prednisone 50 mg tablet 50 mg PO DAILY Qty: 5 0RF albuterol sulfate [Ventolin HFA] 90 mcg/actuation HFA aerosol inhaler 2 puff inhalation QID PRN (Reason: shortness of breath or wheezing) Qty: 8.5 0RF benzonatate 200 mg capsule 200 mg PO TID PRN (Reason: cough) Qty: 30 0RF No Action benzonatate 100 mg capsule 100 mg PO BID PRN (Reason: cough) Qty: 14 0RF fluticasone propionate [Flonase Allergy Relief] 50 mcg/actuation spray,suspension 1 spray intranasal DAILY Qty: 16 0RF Rx Instructions: administer into each nostril loratadine 10 mg tablet 10 mg PO DAILY Qty: 30 0RF Follow-up/Referrals: PHYSICIAN,CHIEF PROCUREMENT OFFICER [Primary Care Provider] - Stand Alone Forms: Work/School Release IP Time of Disposition: 18:22
[2024-02-12 17:54] VITALS: BP 105/79; PULSE 111; RESP 16; TEMP 37; O2SAT 100
[2024-02-12 18:10] LABS: EDSTREPNEGPOS1 Negative (Negative)
[2024-02-12 18:22] LABS: EDCOVIDSCREEN Negative (Negative); EDINFLUASCREEN Negative (Negative); EDINFLUBSCREEN Negative (Negative)
== END 2024-02-12 18:40 | disposition home or self-care (01) ==
PROVIDERS: Emergency Provider Nurse Practitioner Family
DX: J06.9 Acute upper respiratory infection, unspecified (principal); Z20.822 Contact with and (suspected) exposure to COVID-19; F17.290 Nicotine dependence, other tobacco product, uncomplicated
CPT/HCPCS: 87081; 87426; 87804; 87880; 99213; G0463

== ENCOUNTER 2024-10-14 11:16 | Emergency (ER) | payer OTHER, SELFPAY ==
[2024-10-14 11:21] VITALS: BP 112/79; PULSE 100; RESP 20; TEMP 36.9; O2SAT 100
[2024-10-14 11:40] LABS: BEDSIDEPREGUCG Negative (Negative)
[2024-10-14 11:46] LABS: Hematocrit 44.4 % (37.0-47.0); Hemoglobin 15.1 g/dL (12.0-15.0); Immature Granulocyte Percent A 0.4 % (0-0.5); Lymphocytes Absolute Auto 2.24 K/mm3 (0.9-3.2); Mean Corpuscular HGB Conc 34.0 g/dl (32-36); Mean Corpuscular Hemoglobin 30.1 pg (26-34); Mean Corpuscular Volume 88.6 fl (80-100); Nucleated Red Blood Cells Absolute Auto 0.000 K/mm3 (0.0-0.012); Nucleated Red Blood Cells Perc 0.0 % (0.0-0.2); Platelet Count Result 370 k/mm3 (150-375); Red Blood Count 5.01 M/mm3 (4.2-5.4); White Blood Count 20.3 K/mm3 (4.5-10.0)
[2024-10-14 11:47] VITALS: BP 152/98; PULSE 64; RESP 15; O2SAT 95
[2024-10-14 11:58] LABS: Add Urine Microscopic? YES; Appearance Urine Cloudy (Clear); Glucose Urine UA Negative (Negative); Leukocyte Esterase Ur Trace LEU/UL (Negative); Need Manual Microscopic Reviewed; Nitrate Urine Negative (Negative); Specific Grav Ur 1.035 (1.001-1.035)
[2024-10-14 12:05] LABS: Alanine Aminotransferase 23 U/L (6-35); Albumin Level 5.5 g/dL (3.5-5.1); Alkaline Phosphatase 73 U/L (38-126); Anion Gap 15 mmol/L (4-12); Aspartate Amino Transferase 28 U/L (14-36); Bilirubin,Total 0.6 mg/dL (0.2-1.3); Blood Urea Nitrogen 11 mg/dL (7-17); Calcium 10.2 mg/dL (8.4-10.2); Carbon Dioxide 23 mmol/L (22-30); Chloride 101 mmol/L (98-107); Estimated CRCL calculation 87 ml/min; Estimated Glomerular Filt Rate > 60; Glucose 130 mg/dL (65-110); Lipase 74 U/L (23-300); Potassium 3.4 mmol/L (3.4-5.0); Sodium 139 mmol/L (137-145); Total Protein 9.3 g/dL (6.3-8.2)
[2024-10-14 12:06] LABS: Schistocytes None Seen
[2024-10-14] MEDS: ONDANSETRON INJ 4 MG/2 ML VIAL IV PUSH (12:24)
[2024-10-14] MEDS: SODIUM CHLORIDE 0.9% IV 1,000 ML 999 ML IV CONT (12:27)
--- NOTE | 2024-10-14 12:31 | ED_ITS ---
HPI - Nausea/Vomiting/Diarrhea General Chief complaint: Nausea/Vomiting/Diarrhea Stated complaint: vomiting X24 hours, palpitations Time Seen by Provider: 10/14/24 12:04 History of Present Illness HPI Narrative: this is a 29-year-old female with no significant past medical history presents the ED for nausea and vomiting. Patient states for the past 2 days, she has been having numerous episodes of vomiting stomach contents. She has had some abdominal soreness that started since the vomiting. She has also had some palpitations that she had during her episodes of hyperemesis gravidarum during her last . She is currently on her period and she had her tubes tied. Denies fevers, chills, diarrhea, constipation. No known sick contacts. Related Data Allergies Allergy/AdvReac Type Severity Reaction Status Date / Time metoclopramide AdvReac Intermediate Anxiety Verified 02/12/24 17:30 prochlorperazine (From AdvReac Intermediate Anxiety Verified 02/12/24 17:30 Compazine) Review of Systems 2 Review of Systems: Gen.: Denies fevers or chills Eyes: Denies eye pain or visual change ENT: Denies congestion Respiratory: Denies shortness of breath or cough CV: as per HPI GI: As per HPI denies burning, urgency, frequency or hematuria Musculoskeletal: Denies back pain or muscle pain Neuro: Denies numbness, tingling, weakness or focal weakness Skin: Denies rash Except as documented, all other systems reviewed and negative [facility] Past Medical History Medical History (normal spontaneous vaginal delivery) 2020-severe hyperemesis, preeclampsia 2023 Anxiety Asthma childhood only Surgical History Surgical History History of tympanostomy Family History Family History Father Alive and well Colon cancer Mother Alive and well Sibling Brain tumor Social History Social History Smoking packs per day: 0.5 Smoking cigarettes per day: 10.0 Years smoked: 10 Smoking pack-years: 5.00 Smoking status: Current every day smoker Tobacco type: cigarettes and e-cigarettes/vaping Second hand tobacco smoke exposure: Yes Smoking end date: 01/06/20 Additional smoking assessment comments: HAS BEEN SMOKING PUFF BAR SINCE NOVEMBER 2019 Alcohol intake: current Alcohol use details: 1/MONTH Substance use: current Substance use type: marijuana Other substance usage details: OCCASIONAL MARIJUANA Do You Feel Safe in your Home?: No Lack of Transportation: No Lack of Food: Never True Current Housing: I Have Housing Concerned About Future Housing: No Difficulty Paying Gas/Electric Bills: No Difficulty Paying for Meds: No Currently Unemployed: No Education: High School Diploma/GED Difficulty w/ Childcare or Family Care: No Living arrangements: with family Gender identity (if verbalized by the patient): Female Spiritual care concerns: No Exam 2 Narrative: APPEARANCE: No acute distress, nontoxic, resting in bed EYES: EOMI HEENT: Normocephalic, atraumatic, OMM RESPIRATORY: No respiratory distress Clear to auscultation bilaterally with no rhonchi wheezing or rales. CARDIOVASCULAR: Regular rate and rhythm without murmurs rubs or gallops. ABDOMINAL: Soft, mild diffuse tenderness without rebound or guarding. MUSCULOSKELETAl: Moves all extremities. No clubbing, cyanosis or edema. NEURO: Awake and alert. Following commands, speech normal, no focal deficits SKIN:: Warm, dry. No rashes lesions or abrasions PSYCHIATRIC: Normal affect/mood, Course Vital Signs Vital signs: Vital Signs Temperature 98.4 F 10/14/24 11:21 Pulse Rate 100 10/14/24 11:21 Respiratory Rate 20 10/14/24 11:21 Blood Pressure 112/79 10/14/24 11:21 Pulse Oximetry 100 10/14/24 11:21 Oxygen Delivery Room Air 10/14/24 11:21 Temperature 98.4 F 10/14/24 11:21 Pulse Rate 64 10/14/24 11:47 Respiratory Rate 15 10/14/24 11:47 Blood Pressure 152/98 H 10/14/24 11:47 Pulse Oximetry 95 10/14/24 11:47 Oxygen Delivery Room Air 10/14/24 11:21 MDM - Nausea/Vomiting/Diarrhea MDM Narrative Medical decision making narrative: 29-year-old female the presented to the ED for nausea and vomiting. On initial evaluation, patient was in no acute distress, afebrile, hemodynamically stable. She had mild diffuse abdominal tenderness to palpation. Heart and lungs otherwise clear. She had a leukocytosis of 20.3, suspect consistent with her significant episodes of vomiting. CMP consistent with a dehydration. UA showed no evidence of UTI but consistent with dehydration. Patient was given 1 L NS bolus. She was given Zofran with mild improvement of her nausea. She was subsequently given Phenergan and she was able to tolerate multiple cups of water without emesis. She was given prescription for Zofran 8 mg. She was advised to follow-up with her PCP in the next week for evaluation. Patient was agreeable to this plan. Given strict return precautions. Differential Diagnosis Differential diagnosis: Likely food poisoning, gastroenteritis, dehydration and other (electrolyte abnormality) Medical Records Attestation: I reviewed the patient's medical records. Lab Data Attestation: I reviewed the patient's lab results. 10/14/24 11:37 10/14/24 11:37 Labs: Lab Results 10/14/24 10/14/24 Range/Units 11:36 11:37 WBC 20.3 H (4.5-10.0) K/mm3 RBC 5.01 (4.2-5.4) M/mm3 Hgb 15.1 H (12.0-15.0) g/dL Hct 44.4 (37.0-47.0) % MCV 88.6 (80-100) fl MCH 30.1 (26-34) pg MCHC 34.0 (32-36) g/dl RDW 12.1 (11.5-14.5) % Plt Count 370 (150-375) k/mm3 MPV 12.2 H (7.4-10.4) fl Immature Gran % (Auto) 0.4 (0-0.5) % Neut % (Auto) 80.0 H (45.5-73.1) % Lymph % (Auto) 11.1 L (18.3-44.2) % Haskell % (Auto) 8.3 (2.6-8.5) % Eos % (Auto) 0.0 (0-4.4) % Baso % (Auto) 0.2 (0.2-1.2) % Lymph # (Auto) 2.24 (0.9-3.2) K/mm3 Haskell # (Auto) 1.7 H (0.1-0.6) K/mm3 Eos # (Auto) 0.0 (0-0.3) K/mm3 Baso # (Auto) 0.0 (0.0-0.1) K/mm3 Abs Immat Gran (auto) 0.09 H (0.00-0.031) K/mm3 Absolute Neuts (auto) 16.2 H (1.3-6.7) K/mm3 Absolute Nucleated RBC 0.000 (0.0-0.012) K/mm3 Band Neutrophils % Not Reportable Nucleated RBC % 0.0 (0.0-0.2) % Platelet Estimate Adequate (Adequate) Large Platelets Present Schistocytes None seen Sodium 139 (137-145) mmol/L Potassium 3.4 (3.4-5.0) mmol/L Chloride 101 (98-107) mmol/L Carbon Dioxide 23 (22-30) mmol/L Anion Gap 15 H (4-12) mmol/L BUN 11 (7-17) mg/dL Creatinine 0.66 L (0.7-1.0) mg/dL Estim Creat Clear Calc 87 ml/min Estimated GFR > 60 (59 - ) Glucose 130 H (65-110) mg/dL Calcium 10.2 (8.4-10.2) mg/dL Total Bilirubin 0.6 (0.2-1.3) mg/dL AST 28 (14-36) U/L ALT 23 (6-35) U/L Alkaline Phosphatase 73 (38-126) U/L Total Protein 9.3 H (6.3-8.2) g/dL Albumin 5.5 H (3.5-5.1) g/dL Lipase 74 (23-300) U/L Urine Color Dark yellow (Yellow) Urine Appearance Cloudy H (Clear) Urine pH 7.5 (5.0-9.0) Ur Specific [place] 1.035 (1.001-1.035) Urine Protein 3+ H (Negative) mg/dL Urine Glucose (UA) Negative (Negative) mg/dL Urine Ketones 3+ H (Negative) mg/dL Ur Blood (Man) Trace (Negative) Urine Nitrate Negative (Negative) Urine Bilirubin 1+ H (Negative) Urine Urobilinogen 1.0 (<2.0) mg/dL Add Ur Microanalysis Reviewed Leukocyte Esterase Rfl Trace H (Negative) PERRY/UL Urine RBC 11-20 H (0-2) /hpf Urine WBC 0-5 (0-3) /hpf Ur Squamous Epith Cells Few (Few) /hpf Urine Bacteria None seen /hpf Urine Casts 6-10 Hyaline Casts 3-4 H (None) /lpf Urine Mucus Present /lpf POC Urine HCG, Qual Negative (Negative) Discharge Plan Discharge Clinical Impression: Nausea & vomiting, Acute dehydration Patient Disposition: Home Condition: Stable Instructions: Antibiotic Form, Dehydration (ED), Acute Nausea and Vomiting (ED) Additional Instructions: You were given a prescription for Zofran, take this as prescribed. Start with a bland diet and may advance as tolerated. Follow-up with your PCP in the next week for evaluation. Return to the ED for any new or worsening symptoms. Patient Language: Sudanese Prescriptions: New ondansetron 8 mg tablet,disintegrating 8 mg PO Q8H PRN (Reason: nausea and vomiting) Qty: 14 0RF No Action benzonatate 100 mg capsule 100 mg PO BID PRN (Reason: cough) Qty: 14 0RF fluticasone propionate [Flonase Allergy Relief] 50 mcg/actuation spray,suspension 1 spray intranasal DAILY Qty: 16 0RF Rx Instructions: administer into each nostril loratadine 10 mg tablet 10 mg PO DAILY Qty: 30 0RF prednisone 50 mg tablet 50 mg PO DAILY Qty: 5 0RF albuterol sulfate [Ventolin HFA] 90 mcg/actuation HFA aerosol inhaler 2 puff inhalation QID PRN (Reason: shortness of breath or wheezing) Qty: 8.5 0RF benzonatate 200 mg capsule 200 mg PO TID PRN (Reason: cough) Qty: 30 0RF Follow-up/Referrals: UNKNOWN,DOCTOR [Primary Care Provider]
--- OUTSIDE RECORDS SUMMARY | 2024-10-14 13:07 | XMS_ITS | Clinical Summary ---
Author Organization [facility] Address [address] [place] [address] Phone Care Team Providers Care Cold Patcher Name Role Phone Provider, None Primary Care Provider Unavailabl e Allergies Active Allergy Reactions Criticality Noted Date Comments Prochlorperazine Anxiety 05/24/2017 Metoclopramide Hcl Anxiety 01/22/2016 Medications metoclopramide (REGLAN) 10 MG Tablet Take 1 Tab by mouth 4 times daily as needed for Nausea. 12 Tab 0 6 Active Additional Information Patient not taking.Reported on 07/09/2017 ondansetron (ZOFRAN) 4 MG Tablet Take 1 Tab by mouth every 8 hours as needed for Nausea. 12 Tab 0 6 Active prochlorperazine (COMPAZINE) 5 MG Tablet Take 1-2 Tabs by mouth every 6 hours as needed for Nausea. 10 Tab 0 6 Active Additional Information Patient not taking.Reported on 07/09/2017 ondansetron (ZOFRAN-ODT) 4 MG TABLET DISPERSIBLE Take 1 Tab by mouth every 8 hours as needed for Nausea. 10 Tab 7 Active Additional Information Patient not taking.Reported on 07/09/2017 loperamide (IMODIUM A-D) 2 MG Capsule Take 1 Cap by mouth as needed for Diarrhea. 30 Cap 7 Active Additional Information Patient not taking.Reported on 07/09/2017 ondansetron (ZOFRAN) 4 MG Tablet Take 1-2 Tabs by mouth every 8 hours as needed for Nausea. 10 Tab 8 Active Additional Information Patient not taking.Reported on 07/09/2017 metroNIDAZOLE (FLAGYL) 500 MG Tablet Take 1 Tab by mouth 3 times daily. 30 Tab 8 Active Additional Information Patient not taking.Reported on 07/09/2017 traMADol (ULTRAM) 50 MG Tablet Take 1 Tab by mouth every 6 hours as needed for Pain. 10 Tab 8 Active Additional Information Patient not taking.Reported on 07/09/2017 hydrOXYzine (VISTARIL) 25 MG Capsule Take 1 Cap by mouth 3 times daily as needed for Anxiety. 20 Cap 8 Active Additional Information Patient not taking.Reported on 07/09/2017 ondansetron (ZOFRAN ODT) 4 MG TABLET DISPERSIBLE Take 1 Tab by mouth every 8 hours as needed for Nausea - 2nd line. 10 Tab 8 Active Additional Information Patient not taking.Reported on 07/09/2017 DiazePAM (VALIUM PO) Take by mouth. Activ e ondansetron (ZOFRAN) 8 MG Tablet Take 1 Tab by mouth every 8 hours as needed for Nausea - 1st line. 30 Tab 1 8 Active Additional Information Patient not taking.Reported on 07/09/2017 raNITIdine (ZANTAC) 150 MG Tablet Take 1 Tab by mouth 2 times daily. 60 Tab 3 8 Active Additional Information Patient not taking.Reported on 07/10/2017 clonazePAM (KLONOPIN) 0.5 MG Tablet Take 0.5 mg by mouth 3 times daily. Active oxyCODONE-acetam inophen (PERCOCET) 5-325 MG Tablet Take 1 Tab by mouth every 6 hours as needed for Severe pain. 6 Tab 9 Active potassium chloride (MICRO-K) 10 MEQ Capsule CR Take 2 Capsules by mouth daily. 14 Capsule 2 Active Active Problems No known active problems Family History Medical History Relation Name Comments Colon Cancer Father Breast Cancer Maternal Aunt Cancer Mother cervical Relation Name Status Comments Father Maternal Aunt Mother Alive Social History Tobacco Use Types Packs/Day Years Used Date Smoking Tobacco: Every Day Cigarettes 0.5 8 Smokeless Tobacco: Never Tobacco Cessation:Ready to Q uit: No; Counseling Given: Yes Alcohol Use Standard Drinks/Week Comments No 0 (1 standard drink = 0.6 oz pur e alcohol) Comments No Sex and Gender Information Value Date Recorded Sex Assigned at Not on file Legal Sex Female 10:42 PM RECORDS CLERK Gender Identity Not on file Sexual Orientation Not on file Occupation Industry Job Start Date Job End Date Unemployed Not on file Not on file Not on file Last Filed Vital Signs Vital Sign Reading Time Taken Comments Blood Pressure 111/67 04/12/2021 2:15 PM RECORDS CLERK Pulse 82 04/12/2021 2:44 PM RECORDS CLERK Temperature 36.5 C (97.7 F) 04/12/2021 9:07 AM RECORDS CLERK Respiratory Rate 20 04/12/2021 2:44 PM RECORDS CLERK Oxygen Saturation 100% 04/12/2021 2:44 PM RECORDS CLERK Inhaled Oxygen Concentration - - Weight 51.3 kg (113 lb) 04/12/2021 9:07 AM RECORDS CLERK Height 157.5 cm (5' 2) 04/12/2021 9:07 AM RECORDS CLERK Body Mass Index 20.67 04/12/2021 9:07 AM RECORDS CLERK Plan of Treatment Health Maintenance Due Date Last Done Comments Hepatitis C Virus (HCV) Screening 1997 Human Papillomavirus (HPV) Immunization (2 - 2-dose series) 04/05/2009 10/06/2008 Influenza Immunization (#1) 10/06/202411/06, 02/08/2009, 02/07/2007 SARS-COV-2 Immunization ( season) 2024 Respiratory Syncytial Virus (RSV) Immunization (Adult) (1 - 1-dose 75+ series) 2072 Hepatitis B Immunization Completed 998, 1997, 1997 Meningococcal Immunization (ACWY) Completed 12/01/2015, 08/03/2008 DTaP/Tdap/Td Immunization Discontinued 2020, 09/05/2007, 05/30/2001, Additional history exists TdaP Immunization Completed 09/18/2020, 09/05/2007 Pneumococcal Immunization Combined Aged Out No longer eligible based on patient's age to complete this topic Rotavirus Immunization Aged Out No lo nger eligible based on patient's age to complete this topic Insurance MEDICAID [facility] Care Teams Cold Patcher Relationship Specialty Start Date End Date Provider, None [place] PCP - General 11/24/18
--- OUTSIDE RECORDS SUMMARY | 2024-10-14 13:07 | XMS_ITS | Clinical Summary ---
Author Organization [facility] Address [address] [place] [address] Care Team Providers Care Travel Counselor Name Role Phone Jesús Yates MD Primary Care Provider [phone] Allergies Active Allergy Reactions Criticality Noted Date Comments Prochlorperazine Anxiety Low 07/03/2017 Metoclopramide Hcl Anxiety Low 07/03/2017 Medications acetaminophen (TYLENOL) 325 mg tablet Take 650 mg by mouth every 6 (six) hours as needed for pain Active prochlorperazin e (COMPAZINE) 25 mg suppository Insert 1 suppository (25 mg total) into the rectum every 12 (twelve) hours as needed for nausea or vomiting 12 suppository 04/17/19 22 Active diphenhydrAMINE (diphenhydrAMIN E) 25 mg capsule Take 1 tablet/capsule (25 mg total) by mouth every 6 (six) hours as needed (take as needed with compazine for anxiety) 20 capsule 04/17/19 22 Active Active Problems Problem Noted Date Diagnosed Date Intractable vomiting 02/11/2020 Assessment & Plan (02/11/2020 11:49 AM COMPUTER NUMERICAL CONTROL GRINDER): Conrad6. Discussed signs and symptoms of Severe Dehydration. Fiber Supplement for Constipation. Follow up with OB Less than 8 weeks gestation of 020 Assessment & Plan (01/15/2020 4:53 PM COMPUTER NUMERICAL CONTROL GRINDER): Discussed briefly dos and don'ts of pregnancies. Anticipate normal risk . Recommend Tobacco Cessation. Discontinue Klonopin/Tramadol/Flexeri and take them only PRN. Contact OB-RETAIL ASSISTANT MANAGER cain. Referral. Surgical History Surgery Date Site/Laterality Comments TYMPANOSTOMY TUBE PLACEMENT Medical History Medical History Date Comments Anxiety Family History Medical History Relation Name Comments Colon cancer Father No Known Problems Mother Relation Name Status Comments Father Mother Alive Social History Tobacco Use Types Packs/Day Years Used Date Smoking Tobacco: Every Day Smokeless Tobacco: Never Tobacco Cessation:Ready to Q uit: Not Asked; Counseling Given: Not Answered Alcohol Use Standard Drinks/Week Comments Yes 0 (1 standard drink = 0.6 oz pur e alcohol) PHQ-2 Answer Date Recorded PHQ-2 Total Score (If total score is 3 or more points, staff should administer the PHQ-9) 2 12/08/2019 Comments No Sex and Gender Information Value Date Recorded Sex Assigned at Not on file Legal Sex Female 7:26 AM COMPUTER NUMERICAL CONTROL GRINDER Gender Identity Not on file Sexual Orientation Not on file Obstetrics History Last Filed Vital Signs Vital Sign Reading Time Taken Comments Blood Pressure 129/83 01/03/2022 8:37 PM COMPUTER NUMERICAL CONTROL GRINDER Pulse 97 01/03/2022 8:37 PM COMPUTER NUMERICAL CONTROL GRINDER Temperature 36.4 C (97.5 F) 01/03/2022 6:14 PM COMPUTER NUMERICAL CONTROL GRINDER Respiratory Rate 26 01/03/2022 8:37 PM COMPUTER NUMERICAL CONTROL GRINDER Oxygen Saturation 96% 01/03/2022 8:37 PM COMPUTER NUMERICAL CONTROL GRINDER Inhaled Oxygen Concentration - - Weight 62 kg (136 lb 11 oz) 01/03/2022 6:[address] Height 157.5 cm (5' 2) 01/03/2022 6:14 PM COMPUTER NUMERICAL CONTROL GRINDER Body Mass Index 25 01/03/2022 6:14 PM COMPUTER NUMERICAL CONTROL GRINDER Plan of Treatment Health Maintenance Due Date Last Done Comments Cervical Cancer Screening 1997 Hepatitis C Screening 1997 HPV Vaccines (2 - 2-dose series) 04/05/2009 10/07/19 09 Pneumococcal vaccine <65 (1 of 2 - PCV) 2016 Depression Screening 12/07/2020 12/08/2019 Regular Well Visit/Exam 18-64 12/07/2020 12/08/2019 Influenza Vaccine (#1) 2024 6, 11/09/2009, 11/15/2007, Additional history exists DTaP/Tdap/Td Vaccine (8 - Td or Tdap) 09/18/2030 09/18/2020, 09/05/2007, 05/30/2001, Additional history exists Hepatitis B Screening Completed 1997 , 1997, 1997 Varicella Vaccines Discontinued 02/07/2007, 03/29/[address] [place] [address] Care Teams Travel Counselor Relationship Specialty Start Date End Date Jesús Yates MD PCP - General Family Medicine 12/11/19
--- OUTSIDE RECORDS SUMMARY | 2024-10-14 13:42 | XMS_ITS | Clinical Summary ---
Author Organization [facility] Address [address] [place] [address] Phone Care Team Providers Care Rewinder Name Role Phone Provider, None Primary Care [...] on file Legal Sex Female 10:42 PM APPLICATION INTEGRATION ARCHITECT Gender Identity Not on file Sexual Orientation Not on file Occupation Industry Job Start Date Job End Date Unemployed Not on file Not on file Not on file Last Filed Vital Signs Vital Sign Reading Time Taken Comments Blood Pressure 111/67 04/12/2021 2:15 PM APPLICATION INTEGRATION ARCHITECT Pulse 82 04/12/2021 2:44 PM APPLICATION INTEGRATION ARCHITECT Temperature 36.5 C (97.7 F) 04/12/2021 9:07 AM APPLICATION INTEGRATION ARCHITECT Respiratory Rate 20 04/12/2021 2:44 PM APPLICATION INTEGRATION ARCHITECT Oxygen Saturation 100% 04/12/2021 2:44 PM APPLICATION INTEGRATION ARCHITECT Inhaled Oxygen Concentration - - Weight 51.3 kg (113 lb) 04/12/2021 9:07 AM APPLICATION INTEGRATION ARCHITECT Height 157.5 cm (5' 2) 04/12/2021 9:07 AM APPLICATION INTEGRATION ARCHITECT Body Mass Index 20.67 04/12/2021 9:07 AM APPLICATION INTEGRATION ARCHITECT Plan of Treatment Health Maintenance Due Date [...] age to complete this topic Insurance MEDICAID [facility] Care Teams Rewinder Relationship Specialty Start Date End Date Provider, None [place] PCP - General 11/24/18
--- OUTSIDE RECORDS SUMMARY | 2024-10-14 13:42 | XMS_ITS | Clinical Summary ---
Author Organization [facility] Address [address] [place] [address] Care Team Providers Care Briar Wood Sorter Name Role Phone Jordyn Michel CASE MONITOR Primary Care Provider [phone] Allergies Active Allergy Reactions Criticality Noted Date Comments Prochlorperazine Anxiety Low 04/07/2021 Metoclopramide Anxiety Low 01/22/2016 Medications ondansetron 4 MG disintegrating tablet Take 4 mg by mouth 3 (three) times daily as needed. 2 Active omeprazole 40 MG capsule Take 40 mg by mouth nightly. Active sucralfate 1 G tablet Take 1 g by mouth 4 (four) times daily before meals and nightly. Active acetaminophen (TYLENOL) 500 MG tablet Take 2 tablets (1,000 mg total) by mouth every 6 (six) hours as needed for Pain. Active ELURYNG 0.12-0.015 MG/24HR RING INSERT 1 RING INTO VAGINA ONCE A MONTH 3 Active Active Problems Problem Noted Date Diagnosed Date Hypokalemia 04/29/2021 Family History Medical History Relation Comments Colon Cancer Father Breast Cancer Maternal Aunt Cancer Mother Relation Status Comments Father Maternal Aunt Mother Social History Tobacco Use Types Packs/Day Years Used Date Smoking Tobacco: Former Cigarettes Q uit: 01/06/2020 Smokeless Tobacco: Never Tobacco Cessation:Counseling Given: Not Answered Passive Exposure Comments:Vape daily Alcohol Use Standard Drinks/Week Comments Yes 0 (1 standard drink = 0.6 oz pur e alcohol) 0 Comments No Sex and Gender Information Value Date Recorded Sex Assigned at Not on file Legal Sex Female 6:22 PM CDT Gender Identity Not on file Sexual Orientation Not on file Last Filed Vital Signs Vital Sign Reading Time Taken Comments Blood Pressure 93/51 06/02/2022 10:10 AM CDT Pulse 62 06/02/2022 10:10 AM CDT Temperature 36.5 C (97.7 F) 06/02/2022 9:41 AM CDT Respiratory Rate 16 06/02/2022 10:10 AM CDT Oxygen Saturation 92% 06/02/2022 10:00 AM CDT Inhaled Oxygen Concentration - - Weight 55.8 kg (123 lb) 06/01/2022 7:52 AM CDT Height 158.1 cm (5' 2.25) 06/01/2022 7:52 AM CD T Body Mass Index 22.32 06/01/2022 7:52 AM CDT Plan of Treatment Health Maintenance Due Date Last Done Comments Cervical Cancer Screening Pap Smear (Age 21 to 29) Every 3 Years 1997 Cervical Cancer Screening 1997 Annual Physical 2000 HPV Vaccines (2 - 2-dose series) 04/05/2009 10/06/2008 Hepatitis C 2015 COVID-19 Vaccine ( season) 2024 DTaP, Tdap and Td Vaccines (8 - Td or Tdap) 09/18/2030 09/18/2020, 09/05/2007, 05/30/2001, Additional history exists Hepatitis B Vaccines Completed 1997, 1997, 1997 Meningococcal Vaccine Completed 12/01/2015, 009 Meningococcal B Vaccine Aged Out No l onger eligible based on patient's age to complete this topic Pneumococcal Vaccine: Pediatrics (0 to 5 Years) and At-Risk Patients (6 to 49 Years) Aged Out No longer eligible based on patient's age to complete this topic RSV Immunizations Under 20 Months Aged Out No longer eligible based on patient's age to complete this topic Insurance Advance Directives * Full Code (Latest Code Status on File) Date Activated Date Inactivated Comments 04/29/2021 6:21 PM 04/30/2021 5:56 PM Care Teams Briar Wood Sorter Relationship Specialty Start Date End Date Jordyn Michel FNP [address] [place] [id number] PCP - General Nurse Practitioner Family 04/30/21
--- OUTSIDE RECORDS SUMMARY | 2024-10-14 13:42 | XMS_ITS | Encounter Summary ---
Author Organization [facility] Address [address] [place] [address] Care Team Providers Care Staff Mine Warfare Officer Name Role Phone None, Provider MD Primary Care Provider Unavaila courtney None, Provider Primary Care Provider Unavaila ble Jordyn Michel Primary Care Provider [phone] Encounter Details Date Type Department Care Team (Late st Contact Info) Description 04/26/2021 Prep for Procedure [facility] [place] [address] Guicho Thomas, DO [address] [facility] [address] [place] [address] Social History Tobacco Use Types Packs/Day Years Used Date Smoking Tobacco: Every Day Cigarettes Smokeless Tobacco: Never Alcohol Use Standard Drinks/Week Comments Yes 0 (1 standard drink = 0.6 oz pur e alcohol) Comments No Sex and Gender Information Value Date Recorded Sex Assigned at Not on file Legal Sex Female 6:22 PM CDT Gender Identity Not on file Sexual Orientation Not on file COVID-19 Exposure Response Date Recorded In the last 10 days, have yo u been in contact with someone who was confirmed or suspected to have Coronavirus/COVID-19? No / Unsure 04/29/2021 1:49 PM CDT documented as of this encounter Functional Status * Calculated C-SSRS Risk Score (Lifetime/Recent) Answer Date of Assessment Author Status No Risk Indicated 04/29/2021 12:29 PM CDT Idalia Sánchez, RN Active * [place] Suicide Severity Rating Scale (Screener/Recent Self-Report) Question Answer Date of Assessment Author Status 1. Wish to be (Past 1 Month) No 04/29/2021 12:29 PM CDT Marcus Sánchez RN Active 2. Non-Specific Active Suicidal Thoughts (Past 1 Month) No 04/29/2021 12:29 PM CDT Marcus Sánchez RN Active 6. Suicidal Behavior (Lifetime) No 04/29/2021 12:29 PM CDT Marcus Sánchez RN Active documented as of this encounter Plan of Treatment Not on file documented as of this encounter Results * CORONAVIRUS (COVID 19) (05/02/2021 10:20 AM CDT) SPEC DESCRIPTION NASAL 05/03/19 10:21 AM CDT [facility] CORONAVIRUS SARS COV 2 PCR (RESP) NEGATIVE NEGATIVE 05/02/2021 7:45 PM CDT [facility] Comment: THE SARS-CoV-2 TEST HAS BEEN AUTHORIZED BY THE FDA UNDER AN EUA FOR USE BY AUTHORIZED LABORATORIES. PERFORMED BY NUCLEIC ACID AMPLIFICATION PCR FIRST TEST UNKNOWN 05/02/2021 10:21 AM CDT [facility] EMPLOYED IN HEALTHCARE NO 05/02/2021 10:21 AM CDT [facility] SYMPTOMATIC DEFINED BY CDC NO 05/02/2021 10:21 AM CDT [facility] HOSPITALIZATION STATUS NO 05/02/2021 10:21 AM CDT [facility] PATIENT IN ICU NO 05/02/2021 10:21 AM CDT [facility] RESIDENT OF CONGREGATE CARE NO 05/02/2021 10:21 AM CDT [facility] UNKNOWN 05/02/2021 10:21 AM CDT [facility] NASAL STRUCTURE / Unknown 05/02/2021 10:20 AM CDT us Guicho T Klucka DO MICROBIOLOGY - GENERAL ORDERABL ES Final Result [facility] [address] [place] [address], [place] [phone] [facility] [address] [place] [address], [place] [phone] documented in this encounter Visit Diagnoses Diagnosis Weight loss- Primary Loss of weight documented in this encounter Additional Health Concerns Infection Onset Date Last Indicated Resolved Time COVID-19 Rule Out 05/02/2021 05/02/2021 05/02/2021 7:45 PM CDT documented as of this encounter Care Teams Staff Mine Warfare Officer Relationship Specialty Start Date End Date None, Provider, PCP - General 04/07/21 04/28/21 None, Provider, PCP - General 04/29/21 04/29/21 Jordyn Michel FNP [address] [place] [id number] PCP - General Nurse Practitioner Family 04/30/21 documented as of this encounter
--- OUTSIDE RECORDS SUMMARY | 2024-10-14 13:42 | XMS_ITS | Clinical Summary ---
Author Organization [facility] Address [address] [place] [address] Care Team Providers Care Platform Man Name Role Phone Jesús Yates MD Primary Care Provider [phone] Allergies Active Allergy Reactions Criticality Noted Date [...] 02/11/2020 Assessment & Plan (02/11/2020 11:49 AM [employer]): Conrad6. Discussed signs and symptoms of Severe Dehydration. Fiber Supplement for Constipation. Follow up with OB Less than 8 weeks gestation of 020 Assessment & Plan (01/15/2020 4:53 PM [employer]): Discussed briefly dos and don'ts of pregnancies. Anticipate normal risk . Recommend Tobacco Cessation. Discontinue Klonopin/Tramadol/Flexeri and take them only PRN. Contact OB-CIRCUS PERFORMER cain. Referral. Surgical History Surgery Date Site/Laterality [...] on file Legal Sex Female 7:26 AM [employer] Gender Identity Not on file Sexual Orientation Not on file Obstetrics History Last Filed Vital Signs Vital Sign Reading Time Taken Comments Blood Pressure 129/83 01/03/2022 8:37 PM [employer] Pulse 97 01/03/2022 8:37 PM [employer] Temperature 36.4 C (97.5 F) 01/03/2022 6:14 PM [employer] Respiratory Rate 26 01/03/2022 8:37 PM [employer] Oxygen Saturation 96% 01/03/2022 8:37 PM [employer] Inhaled Oxygen Concentration - - Weight 62 kg (136 lb 11 oz) 01/03/2022 6:[address] Height 157.5 cm (5' 2) 01/03/2022 6:14 PM [employer] Body Mass Index 25 01/03/2022 6:14 PM [employer] Plan of Treatment Health Maintenance Due Date [...] 1997 Varicella Vaccines Discontinued 02/07/2007, 03/29/[address] [place] [address] Care Teams Platform Man Relationship Specialty Start Date End Date Jesús Yates MD PCP - General Family Medicine 12/11/19
[2024-10-14] MEDS: PROMETHAZINE HCL 25 MG/ML AMPUL 12.5 MG IV PUSH (14:26)
== END 2024-10-14 15:23 | disposition home or self-care (01) ==
PROVIDERS: Emergency Medicine; Emergency Provider Student in an Organized Health Care Education/Training Program
DX: R11.2 Nausea with vomiting, unspecified (principal); E86.0 Dehydration; J45.909 Unspecified asthma, uncomplicated; F17.290 Nicotine dependence, other tobacco product, uncomplicated
CPT/HCPCS: 36415; 80053; 81001; 81025; 83690; 85025; 96361; 96374; 99284; J2405; J2550; J7030

== ENCOUNTER 2024-10-18 14:35 | Emergency (ER) | payer OTHER, SELFPAY ==
[2024-10-18 14:46] VITALS: BP 125/95; PULSE 95; RESP 18; TEMP 36.6; O2SAT 100
--- NOTE | 2024-10-18 15:44 | ECG_ITS ---
Test Date: 2024-10-18 16:00:19 Measurements Intervals [place] Rate: 86 P: 44 MD: 155 QRS: -61 QRSD: 82 T: 24 QT: 373 QTc: 447 Interpretive Statements SINUS RHYTHM MARKED LEFT AXIS DEVIATION [QRS AXIS < -30] POSSIBLE RIGHT VENTRICULAR CONDUCTION DELAY [RSR (QR) IN V1/V2] NONSPECIFIC T-WAVE ABNORMALITY ABNORMAL ECG No previous ECG available for comparison Electronically Signed On 10-19-2024 09:35:33 CDT by Michael Garay M.D.
--- NOTE | 2024-10-18 15:51 | ED_ITS ---
HPI - Nausea/Vomiting/Diarrhea General Chief complaint: Unspecified Stated complaint: High Blood Pressure patient presents to the [facility] with complaints of overall feeling elevated blood pressure palpitations, and anxiety. Patient reports she recently stop smoking marijuana 6 days ago the next day had significant abdominal cramp ing with nausea and vomiting was evaluated in the emergency room at [facility] and kept in the hospital until yesterday. Noted she did have some elevated blood pressures while in the hospital as well as elevated heart rate but no medications given for this or instructions on what to do after discharge with this. Patient noted she has been checking her blood pressures since she has been home and she has been noting elevated readings. Reports 130s over 110s. Also noted episodes of palpitations and overall feeling worse. Patient has been using Zofran and attempted to use Atarax without relief of symptoms. Patient does report a long history of anxiety she was using the marijuana for anxiety. Called primary care physician to schedule follow-up at but is unable to get in until the end of November. Related Data Allergies Allergy/AdvReac Type Severity Reaction Status Date / Time metoclopramide AdvReac Intermediate Anxiety Verified 10/18/24 15:23 prochlorperazine (From AdvReac Intermediate Anxiety Verified 10/18/24 15:23 Compazine) Review of Systems Constitutional: Constitutional: Reports as per HPI, Denies chills, Denies fatigue, Denies fever(s) and Denies weakness Eyes: Eyes: Reports no additional eye complaints ENT: Reports system reviewed and no additional complaints, except as documented Cardiovascular: Cardiovascular: Reports as per HPI, Reports chest pain, Reports rapid heart rate, Denies radiating jaw, neck or arm pain and Denies slow heart rate Respiratory: Respiratory: Reports as per HPI, Denies chest congestion, Denies cough, Reports dyspnea and Denies wheezing Gastrointestinal: Gastrointestinal: Reports as per HPI, Reports abdominal pain, Denies bloating, Denies constipation, Denies heartburn, Reports diarrhea, Reports nausea and Reports vomiting Genitourinary: Genitourinary: Reports no additional female genitourinary complaints Musculoskeletal: Musculoskeletal: Reports as per HPI, Reports myalgias, Denies arthralgias, Denies joint swelling and Denies muscle cramps Integumentary/Breasts: Skin/Breast: Reports as per HPI, Denies erythema and Denies rash Neurologic: Reports as per HPI, Denies vertigo, Denies dizziness, Denies syncope, Denies focal weakness and Denies weakness Psychiatric: Psychiatric: Reports as per HPI, Reports anxiety, Denies depression, Denies homicidal ideation and Denies suicidal ideation Endocrine: Endocrine: Reports no additional endocrine complaints Hematologic/Lymphatic: Hematologic/Lymphatic: Reports no additional hematologic/lymphatic complaints Allergic/Immunologic: Allergic/Immunologic: Reports no additional allergic/immunologic complaints PMFSH Past Medical History Medical History (normal spontaneous vaginal delivery) 2020-severe hyperemesis, preeclampsia 2023 Anxiety Asthma childhood only Surgical History Surgical History History of tympanostomy Family History Family History Father Alive and well Colon cancer Mother Alive and well Sibling Brain tumor Social History Social History Smoking packs per day: 0.5 Smoking cigarettes per day: 10.0 Years smoked: 10 Smoking pack-years: 5.00 Smoking status: Current every day smoker Tobacco type: cigarettes and e-cigarettes/vaping Second hand tobacco smoke exposure: Yes Smoking end date: 01/06/20 Additional smoking assessment comments: HAS BEEN SMOKING PUFF BAR SINCE NOVEMBER 2019 Alcohol intake: current Alcohol use details: 1/MONTH Substance use: current Substance use type: marijuana Other substance usage details: OCCASIONAL MARIJUANA Do You Feel Safe in your Home?: No Lack of Transportation: No Lack of Food: Never True Current Housing: I Have Housing Concerned About Future Housing: No Difficulty Paying Gas/Electric Bills: No Difficulty Paying for Meds: No Currently Unemployed: No Education: High School Diploma/GED Difficulty w/ Childcare or Family Care: No Living arrangements: with family Gender identity (if verbalized by the patient): Female Spiritual care concerns: No Exam Const: General: healthy appearing and no acute distress Nutritional Appearance: well nourished Orientation/consciousness: patient oriented x3 Limitations: no limitations HENMT: Head: normal to inspection Ears: external ears normal and TM's normal bilaterally Face/Nose/Sinus: Normal external nose present and Normal nares present Face and sinus: normal facial exam Mouth: Yes Normal oral and palatal mucosa present, Yes lip normal and Yes moist mucous membranes Throat: posterior oropharynx normal Eyes: Conjunctivae: conjunctivae normal Pupils: Equal, round and reactive pupils present EOM: EOMs intact bilaterally Neck: Neck: normal visual inspection and no lymphadenopathy Resp: Effort & Inspection: normal respiratory effort Auscultation: clear to auscultation bilaterally Cardio: Rate: regular rate Rhythm: regular rhythm GI: GI Palp: Yes Soft to palpation, No Tenderness to palpation present (GI), No Guarding due to palpation present (GI), No Rigid due to palpation and No Hernia present Auscultation: normal bowel sounds Skin: General skin exam: normal color Rashes: no rashes Wounds: no wounds Neuro: General: patient oriented x3 and moves all extremities Cranial nerves: Yes Nystagmus not present Speech: normal speech Gait exam (Neuro): Normal gait present Psych: Mental Status: mental status grossly normal Affect: Anxious affect present Attitude: cooperative Other: tearful Course Course Level of Care: Express Care Visit Vital Signs Vital signs: Vital Signs Temperature 97.9 F 10/18/24 14:46 Pulse Rate 95 10/18/24 14:46 Respiratory Rate 18 10/18/24 14:46 Blood Pressure 125/95 H 10/18/24 14:46 Pulse Oximetry 100 10/18/24 14:46 Oxygen Delivery Room Air 10/18/24 14:46 Temperature 97.9 F 10/18/24 14:46 Pulse Rate 95 10/18/24 14:46 Respiratory Rate 18 10/18/24 14:46 Blood Pressure 125/95 H 10/18/24 14:46 Pulse Oximetry 100 10/18/24 14:46 Oxygen Delivery Room Air 10/18/24 14:46 MDM - Nausea/Vomiting/Diarrhea MDM Narrative Medical decision making narrative: spoke with patient about overall symptoms likely related to withdrawal type symptoms from the marijuana as well as anxiety. Spoke with patient about possibly trying clonidine educated patient she needs follow-up with primary care physician for lab work to test thyroid and likely heart monitor and or referral to Cardiology. Several signs and symptoms reviewed for patient to return to the emergency room if they should arise. Manual blood pressure taken by myself in clinic. 118/100- right arm, sitting. The patient was evaluated by myself in the express care. History is obtained from patient who is an independent historian and physical exam was performed. Available medical records were reviewed at this time. Exam findings show no acute concerns or changes; patient is non-toxic appearing and is in no distress. Patient is appropriate for outpatient treatment and follow-up. I have evaluated and discussed social determinants of health with the patient that could potentially impact subsequent diagnosis and treatment plans. Differential diagnosis and treatment plan were discussed with the patient. Patient agrees with discussion and after shared medical decision making agrees with plan of care. All questions were answered to the patient's satisfaction. Differential Diagnosis Differential diagnosis: Likely gastroenteritis, drug-induced nausea and vomiting, dehydration and other ( Anxiety, withdrawal symptoms) Medical Records Attestation: I reviewed the patient's medical records. ECG Data EKG #1: ECG completion date: 10/18/24 ECG completion time: 16:00 Prior ECG tracings: available for review EKG Interpretation: normal rate, no ST changes and left axis Discharge Plan Discharge Clinical Impression: Anxiety, Elevated blood pressure reading Patient Disposition: Home Condition: Stable Instructions: Antibiotic Form, Generalized Anxiety Disorder (ED), Tachycardia (ED) Additional Instructions: your EKG was normal at the [facility] today. We have provided you a copy of this. Her blood pressure is abnormally elevated your top number or systolic number is in the normal range but your diastolic/ bottom number is elevated. We are going to use a medication called clonidine back and help with your anxiety, withdrawal type symptoms, and blood pressure. Do not take this more than twice a day as we do not want your blood pressure to be too low and cause fatigue, dizziness, or falls recommend follow-up with primary care as soon as possible to be placed on a Holter monitor for your heart as well as having lab work that includes thyroid function. We are unable to send you for outpatient testing from the [facility]. If you notice any worsening symptoms increased chest pain, increased anxiety, thoughts of wanting to harm yourself, increased shortness of breath, or any other significant symptoms return to the emergency room for evaluation. Patient Language: Emirati Prescriptions: New clonidine HCl 0.1 mg tablet 0.1 mg PO BID PRN (Reason: anxiety) Qty: 40 0RF No Action benzonatate 100 mg capsule 100 mg PO BID PRN (Reason: cough) Qty: 14 0RF fluticasone propionate [Flonase Allergy Relief] 50 mcg/actuation spray,suspension 1 spray intranasal DAILY Qty: 16 0RF Rx Instructions: administer into each nostril loratadine 10 mg tablet 10 mg PO DAILY Qty: 30 0RF prednisone 50 mg tablet 50 mg PO DAILY Qty: 5 0RF albuterol sulfate [Ventolin HFA] 90 mcg/actuation HFA aerosol inhaler 2 puff inhalation QID PRN (Reason: shortness of breath or wheezing) Qty: 8.5 0RF benzonatate 200 mg capsule 200 mg PO TID PRN (Reason: cough) Qty: 30 0RF ondansetron 8 mg tablet,disintegrating 8 mg PO Q8H PRN (Reason: nausea and vomiting) Qty: 14 0RF Follow-up/Referrals: Oscar,Tasia Virk APN [Primary Care Provider, Unknown] Time of Disposition: 16:11
== END 2024-10-18 16:33 | disposition home or self-care (01) ==
PROVIDERS: Emergency Provider Nurse Practitioner Family; PCP Nurse Practitioner Family
DX: F41.9 Anxiety disorder, unspecified (principal); R03.0 Elevated blood-pressure reading, without diagnosis of hypertension; F17.290 Nicotine dependence, other tobacco product, uncomplicated
CPT/HCPCS: 93005; 99213; G0463

== ENCOUNTER 2024-10-23 10:10 | Emergency (ER) | payer OTHER, SELFPAY ==
[2024-10-23] VITALS (16 sets, daily range): BP systolic 95–145; BP diastolic 55–102; PULSE 91–107; RESP 11–35; TEMP 36.7; O2SAT 96–100
--- NOTE | ~2024-10-23 | XR_ITS ---
EXAMINATION: XR chest 2V, 10/23/2024 11:05 CDT HISTORY: chest pain, heart palpitation, htn, sob nausea x 1 wk COMPARISON: No comparisons available. Technique: 2 views obtained. Findings: The lungs are clear, no effusion. No pneumothorax. Heart is normal size. Mediastinal and hilar contours are within normal limits. Bony thorax no acute abnormality. Impression: No acute cardiopulmonary abnormality. Reviewed, dictated and finalized at location A. Impression: No acute cardiopulmonary abnormality.
--- NOTE | 2024-10-23 10:18 | ECG_ITS ---
Test Date: 2024-10-23 10:20:36 Measurements Intervals [place] Rate: 98 P: 53 CO: 151 QRS: -75 QRSD: 82 T: -2 QT: 313 QTc: 400 Interpretive Statements SINUS RHYTHM LEFT AXIS DEVIATION [QRS AXIS < -30] POSSIBLE RIGHT VENTRICULAR CONDUCTION DELAY [RSR (QR) IN V1/V2] NONSPECIFIC ST AND T-WAVE ABNORMALITY ABNORMAL ECG Compared to ECG 10/18/2024 16:00:19 No significant changes Electronically Signed On 10-23-2024 12:35:03 CDT by Michael Garay M.D.
--- NOTE | 2024-10-23 10:56 | ED_ITS ---
HPI - Arrhythmia/Palpitations General Chief Complaint: Arrhythmia/Palpitations Stated Complaint: heart palpitations Time Seen by Provider: 10/23/24 10:10 History of Present Illness HPI narrative: Patient is a 29-year-old female who presents to the ER with complaints of heart palpitations. She reports her symptoms started last week on Sunday, 11 days ago. Patient reports she came here for evaluation was diagnosed with cannabinoid hyperemesis. She reports she went to the [facility] later in the week and was admitted for her symptoms. Patient reports she is discharged home and felt ?great yesterday, then her symptoms worsened last night. She reports she drinks approximately 6-7 caffeinated drinks per day. Patient also endorses increased water intake lately. She endorses a history of marijuana use, chronic back pain, and an elevated TSH. Patient also reports she has been experiencing shortness of breath, decreased urine output, and chills/sweats. Related Data Home Medications ?Medication ?Instructions ?Recorded ?Confirmed ?Last Taken ?Type promethazine 25 mg tablet 25 mg PO TID PRN nausea and 10/21/24 10/21/24 Unknown History vomiting Allergies Allergy/AdvReac Type Severity Reaction Status Date / Time haloperidol (From Haldol) AdvReac Intermediate Anxiety Verified 10/23/24 11:39 metoclopramide AdvReac Intermediate Anxiety Verified 10/23/24 11:39 prochlorperazine (From AdvReac Intermediate Anxiety Verified 10/23/24 11:39 Compazine) Review of Systems 2 Review of Systems: All systems reviewed & are unremarkable except as noted in HPI and below PMFSH Past Medical History Medical History (normal spontaneous vaginal delivery) 2020-severe hyperemesis, preeclampsia 2023 Anxiety Asthma childhood only Surgical History Surgical History History of tympanostomy Family History Family History Father Alive and well Colon cancer Mother Alive and well Sibling Brain tumor Social History Social History Smoking packs per day: 0.5 Smoking cigarettes per day: 10.0 Years smoked: 10 Smoking pack-years: 5.00 Smoking status: Current every day smoker Tobacco type: cigarettes and e-cigarettes/vaping Second hand tobacco smoke exposure: Yes Smoking end date: 01/06/20 Additional smoking assessment comments: Vapes now. Alcohol intake: current Alcohol use details: 1/MONTH Substance use: former Substance use type: marijuana Other substance usage details: Quit last week due to the throwing up. Do You Feel Safe in your Home?: No Lack of Transportation: No Lack of Food: Never True Current Housing: I Have Housing Concerned About Future Housing: No Difficulty Paying Gas/Electric Bills: No Difficulty Paying for Meds: No Currently Unemployed: No Education: High School Diploma/GED Difficulty w/ Childcare or Family Care: No Living arrangements: with family Gender identity (if verbalized by the patient): Female Spiritual care concerns: No Exam 2 Narrative: GENERAL: Ill appearing, well-nourished, non-toxic, in no acute distress. HEAD: Normocephalic, atraumatic. NECK: Supple. No adenopathy, no masses. RESPIRATORY: Airway patent, respirations nonlabored. Clear to auscultation bilaterally, no rales, rhonchi, wheezing. CARDIOVASCULAR: Tachycardia without murmurs, rubs, or gallops. Peripheral pulses 2+ and equal bilaterally. ABDOMINAL: Soft, tender all four quadrants, nondistended, no hepatosplenomegaly. Normoactive BS. MUSCULOSKELETAL: Moves all extremities. Strength/ROM intact without gross deformities. SKIN: Warm, dry, pallor. No rashes. NEURO: A&O X3. Speech clear. Cranial nerves II-XII intact. No ataxic movements. PSYCHIATRIC: Appropriate mood and affect. Normal interaction. Course Vital Signs Vital signs: Vital Signs Temperature 36.7 C 10/23/24 10:12 Pulse Rate 105 H 10/23/24 10:12 Respiratory Rate 18 10/23/24 10:12 Blood Pressure 132/98 H 10/23/24 10:12 Pulse Oximetry 99 10/23/24 10:12 Oxygen Delivery Room Air 10/23/24 10:12 Temperature 36.7 C 10/23/24 10:12 Pulse Rate 98 10/23/24 15:55 Respiratory Rate 21 H 10/23/24 15:55 Blood Pressure 98/61 L 09/18/25 13:45 Pulse Oximetry 99 10/23/24 11:30 Oxygen Delivery Room Air 10/23/24 10:12 MDM - Arrhythmia/Palpitations MDM Narrative Medical decision making narrative: Patient is a 29-year-old female who presents to the ER with complaints of heart palpitations. She reports her symptoms started last week on Sunday, 11 days ago. Patient reports she came here for evaluation was diagnosed with cannabinoid hyperemesis. She reports she went to the [facility] later in the week and was admitted for her symptoms. Patient reports she is discharged home and felt ?great yesterday, then her symptoms worsened last night. She reports she drinks approximately 6-7 caffeinated drinks per day. Patient also endorses increased water intake lately. She endorses a history of marijuana use, chronic back pain, and an elevated TSH. Patient also reports she has been experiencing shortness of breath, decreased urine output, and chills/sweats. Labs Ordered: CBC, CMP, troponin, UA, UDS, PTT, INR, lactic acid, COVID/flu/RSV, D-dimer, lipase Imaging Ordered: Chest x-ray Medications Ordered: Ativan 0.5mg PO, Normal saline IV bolus, Bactrim PO, Droperidol IV 5mg Results: Patient's CBC indicates white blood cell count of 12, hemoglobin of 15.2. Her coags are negative for any acute abnormalities. Patient's D-dimer was negative. Her chemistry indicates a sodium of 133, potassium of 3.2, chloride of 93, anion gap of 13, creatinine of 0.61, glucose of 111, ALT of 55, protein of 8.4. Patient's TSH was 0.135. Diagnosis: subclinical hyperthyroidism, cannabinoid hyperemesis, hypokalemia, dehydration Risks: HEART score: low risk HEART Score for Major Cardiac Events from [email or web address] on 10/23/2024 All calculations should be rechecked by clinician prior to use RESULT SUMMARY: 2 points Low Score (0-3 points) Risk of MACE of 0.9-1.7%. INPUTS: History ?> 1 = Moderately suspicious EKG ?> 0 = Normal Age ?> 0 = <45 Risk factors ?> 1 = 1-2 risk factors Initial troponin ?> 0 = <Normal limit Consults: PCP (Spoke with pt's PCP, Tasia Oscar, who agreed to follow-up regarding pt's TSH. Patient Education/Shared MDM: Results of lab work and imaging shared with patient. She endorses significant improvement of symptoms following medication administration. Patient strongly advised to maintain hydration status upon discharge, stop using marijuana and follow-up with her PCP as soon as possible. She will be discharged home with a prescription for Phenergan suppositories, Bactrim, and capsaicin lotion. Strict return precautions provided. Patient verbalized understanding and is in agreement with plan. Vital signs stable at time of discharge. All questions answered. Differential Diagnosis Differential diagnosis: Likely palpitations, anxiety, sinus tachycardia, supraventricular tachycardia and other (Cannabinoid hyperemesis) Lab Data Attestation: I reviewed the patient's lab results. 10/23/24 11:26 10/23/24 14:00 Labs: Lab Results 10/23/24 10/23/24 10/23/24 Range/Units 11:18 11:23 11:26 WBC 12.0 H (4.5-10.0) K/mm3 RBC 4.99 (4.2-5.4) M/mm3 Hgb 15.2 H (12.0-15.0) g/dL Hct 43.9 (37.0-47.0) % MCV 88.0 (80-100) fl MCH 30.5 (26-34) pg MCHC 34.6 (32-36) g/dl RDW 11.9 (11.5-14.5) % Plt Count 333 (150-375) k/mm3 MPV 12.1 H (7.4-10.4) fl Immature Gran % (Auto) 0.4 (0-0.5) % Neut % (Auto) 77.8 H (45.5-73.1) % Lymph % (Auto) 14.7 L (18.3-44.2) % [place] % (Auto) 6.7 (2.6-8.5) % Eos % (Auto) 0.1 (0-4.4) % Baso % (Auto) 0.3 (0.2-1.2) % Lymph # (Auto) 1.76 (0.9-3.2) K/mm3 [place] # (Auto) 0.8 H (0.1-0.6) K/mm3 Eos # (Auto) 0.0 (0-0.3) K/mm3 Baso # (Auto) 0.0 (0.0-0.1) K/mm3 Abs Immat Gran (auto) 0.05 H (0.00-0.031) K/mm3 Absolute Neuts (auto) 9.3 H (1.3-6.7) K/mm3 Absolute Nucleated RBC 0.000 (0.0-0.012) K/mm3 Nucleated RBC % 0.0 (0.0-0.2) % PT 14.0 (11.1-14.7) Seconds INR 1.1 APTT 28.7 (22.3-36.8) Seconds D-Dimer < 0.27 (<0.48) ug/mL Sodium 133 L (137-145) mmol/L Potassium 3.2 L (3.4-5.0) mmol/L Chloride 93 L (98-107) mmol/L Carbon Dioxide 27 (22-30) mmol/L Anion Gap 13 H (4-12) mmol/L BUN 10 (7-17) mg/dL Creatinine 0.61 L (0.7-1.0) mg/dL Estim Creat Clear Calc 93 ml/min Estimated GFR > 60 (59 - ) Glucose 111 H (65-110) mg/dL Lactic Acid 1.0 (0.7-2.0) mmol/L Calcium 9.5 (8.4-10.2) mg/dL Total Bilirubin 1.0 (0.2-1.3) mg/dL AST 25 (14-36) U/L ALT 55 H (6-35) U/L Alkaline Phosphatase 79 (38-126) U/L Troponin I < 0.012 (0.000-0.034) ng/mL Total Protein 8.4 H (6.3-8.2) g/dL Albumin 5.0 (3.5-5.1) g/dL Lipase 69 (23-300) U/L TSH (Reflex) 0.135 L (0.465-4.68) uIU/mL Free T4 1.42 (0.78-2.19) ng/dL Total T3 0.95 (0.82-1.58) NG/ML Urine Color (Yellow) Urine Appearance (Clear) Urine pH (5.0-9.0) Ur Specific [place] (1.001-1.035) Urine Protein (Negative) mg/dL Urine Glucose (UA) (Negative) mg/dL Urine Ketones (Negative) mg/dL Ur Blood (Man) (Negative) Urine Nitrate (Negative) Urine Bilirubin (Negative) Urine Urobilinogen (<2.0) mg/dL Leukocyte Esterase Rfl (Negative) PERRY/UL Urine RBC (0-2) /hpf Urine WBC (0-3) /hpf Ur Squamous Epith Cells (Few) /hpf Urine Bacteria /hpf Urine Casts POC Urine HCG, Qual (Negative) Urine Opiates Screen (Negative) Urine Methadone Screen (Negative) Ur Barbiturates Screen (Negative) Ur Phencyclidine Scrn (Negative) Ur Amphetamine Screen (Negative) U Benzodiazepines Scrn (Negative) Urine Cocaine Screen (Negative) U Cannabinoids Screen (Negative) Influenza A (RT-PCR) Negative (Negative) Influenza B (RT-PCR) Negative (Negative) RSV (RT-PCR) Negative (Negative) SARS-CoV-2 RNA (RT-PCR) Negative (Negative) 10/23/24 10/23/24 10/23/24 Range/Units 12:04 12:06 14:00 WBC (4.5-10.0) K/mm3 RBC (4.2-5.4) M/mm3 Hgb (12.0-15.0) g/dL Hct (37.0-47.0) % MCV (80-100) fl MCH (26-34) pg MCHC (32-36) g/dl RDW (11.5-14.5) % Plt Count (150-375) k/mm3 MPV (7.4-10.4) fl Immature Gran % (Auto) (0-0.5) % Neut % (Auto) (45.5-73.1) % Lymph % (Auto) (18.3-44.2) % [place] % (Auto) (2.6-8.5) % Eos % (Auto) (0-4.4) % Baso % (Auto) (0.2-1.2) % Lymph # (Auto) (0.9-3.2) K/mm3 [place] # (Auto) (0.1-0.6) K/mm3 Eos # (Auto) (0-0.3) K/mm3 Baso # (Auto) (0.0-0.1) K/mm3 Abs Immat Gran (auto) (0.00-0.031) K/mm3 Absolute Neuts (auto) (1.3-6.7) K/mm3 Absolute Nucleated RBC (0.0-0.012) K/mm3 Nucleated RBC % (0.0-0.2) % PT (11.1-14.7) Seconds INR APTT (22.3-36.8) Seconds D-Dimer (<0.48) ug/mL Sodium 133 L (137-145) mmol/L Potassium 3.5 (3.4-5.0) mmol/L Chloride 99 (98-107) mmol/L Carbon Dioxide 26 (22-30) mmol/L Anion Gap 8 (4-12) mmol/L BUN 9 (7-17) mg/dL Creatinine 0.54 L (0.7-1.0) mg/dL Estim Creat Clear Calc 104 ml/min Estimated GFR > 60 (59 - ) Glucose 94 (65-110) mg/dL Lactic Acid (0.7-2.0) mmol/L Calcium 8.4 (8.4-10.2) mg/dL Total Bilirubin (0.2-1.3) mg/dL AST (14-36) U/L ALT (6-35) U/L Alkaline Phosphatase (38-126) U/L Troponin I < 0.012 (0.000-0.034) ng/mL Total Protein (6.3-8.2) g/dL Albumin (3.5-5.1) g/dL Lipase (23-300) U/L TSH (Reflex) (0.465-4.68) uIU/mL Free T4 (0.78-2.19) ng/dL Total T3 (0.82-1.58) NG/ML Urine Color Yellow (Yellow) Urine Appearance Cloudy H (Clear) Urine pH 6.5 (5.0-9.0) Ur Specific [place] 1.012 (1.001-1.035) Urine Protein Negative (Negative) mg/dL Urine Glucose (UA) Negative (Negative) mg/dL Urine Ketones 4+ H (Negative) mg/dL Ur Blood (Man) Trace (Negative) Urine Nitrate Negative (Negative) Urine Bilirubin Negative (Negative) Urine Urobilinogen 1.0 (<2.0) mg/dL Leukocyte Esterase Rfl 1+ H (Negative) PERRY/UL Urine RBC 3-5 H (0-2) /hpf Urine WBC 21-50 H (0-3) /hpf Ur Squamous Epith Cells Few (Few) /hpf Urine Bacteria 1+ H /hpf Urine Casts 0-2 POC Urine HCG, Qual Negative (Negative) Urine Opiates Screen Negative (Negative) Urine Methadone Screen Negative (Negative) Ur Barbiturates Screen Positive A (Negative) Ur Phencyclidine Scrn Negative (Negative) Ur Amphetamine Screen Negative (Negative) U Benzodiazepines Scrn Negative (Negative) Urine Cocaine Screen Negative (Negative) U Cannabinoids Screen Positive A (Negative) Influenza A (RT-PCR) (Negative) Influenza B (RT-PCR) (Negative) RSV (RT-PCR) (Negative) SARS-CoV-2 RNA (RT-PCR) (Negative) Imaging Data Attestation: I personally reviewed and interpreted this imaging study as follows: Radiologist's impression: Impressions Chest X-Ray 10/23/24 11:19 Impression: No acute cardiopulmonary abnormality. Discharge Plan Discharge Clinical Impression: Sinus tachycardia, Abnormal serum thyroid stimulating hormone (TSH) level, Cannabinoid hyperemesis syndrome Patient Disposition: Home Condition: Stable Instructions: Antibiotic Form Additional Instructions: Please return to the ER with any worsening symptoms. Follow-up with primary care provider as soon as possible. Take all medications as prescribed, including regularly scheduled medications. You may use Phenergan suppositories for nausea control. Please read capsaicin lotion on your abdomen if your pain returns. Remember to drink lots of water. Please continue to refrain from marijuana use. Patient Language: Indonesian Prescriptions: New capsaicin 0.075 % cream 1 applic topical TID Qty: 60 0RF Rx Instructions: do not wash area for at least 30 min after application promethazine 25 mg suppository 25 mg RECTAL Q6H PRN (Reason: nausea and vomiting) Qty: 12 0RF No Action clonidine HCl 0.1 mg tablet 0.1 mg PO BID PRN (Reason: anxiety) Qty: 40 0RF ondansetron 8 mg tablet,disintegrating 8 mg PO Q8H PRN (Reason: nausea and vomiting) Qty: 14 0RF promethazine 25 mg tablet 25 mg PO TID PRN (Reason: nausea and vomiting) Follow-up/Referrals: Oscar,Tasia Virk APN [Primary Care Provider, Unknown] Time of Disposition: 17:05
[2024-10-23 11:31] LABS: Hematocrit 43.9 % (37.0-47.0); Hemoglobin 15.2 g/dL (12.0-15.0); Immature Granulocyte Percent A 0.4 % (0-0.5); Lymphocytes Absolute Auto 1.76 K/mm3 (0.9-3.2); Mean Corpuscular HGB Conc 34.6 g/dl (32-36); Mean Corpuscular Hemoglobin 30.5 pg (26-34); Mean Corpuscular Volume 88.0 fl (80-100); Nucleated Red Blood Cells Absolute Auto 0.000 K/mm3 (0.0-0.012); Nucleated Red Blood Cells Perc 0.0 % (0.0-0.2); Platelet Count Result 333 k/mm3 (150-375); Red Blood Count 4.99 M/mm3 (4.2-5.4); White Blood Count 12.0 K/mm3 (4.5-10.0)
[2024-10-23] MEDS: LORazepam (*CRX) 0.5 MG TABLET PO (11:39)
[2024-10-23] MEDS: SODIUM CHLORIDE 0.9% IV 1,000 ML 999 ML IV CONT (11:39)
--- OUTSIDE RECORDS SUMMARY | 2024-10-23 11:42 | XMS_ITS | Clinical Summary ---
Author Organization [facility] Address [address] [place] [address] Care Team Providers Care Broadcast Field Supervisor Name Role Phone Jesús Yates MD Primary Care Provider [phone] Allergies Active Allergy Reactions Criticality Noted Date [...] 02/11/2020 Assessment & Plan (02/11/2020 11:49 AM FUNDRAISING SPECIALIST): Conrad6. Discussed signs and symptoms of Severe Dehydration. Fiber Supplement for Constipation. Follow up with OB Less than 8 weeks gestation of 020 Assessment & Plan (01/15/2020 4:53 PM FUNDRAISING SPECIALIST): Discussed briefly dos and don'ts of pregnancies. Anticipate normal risk . Recommend Tobacco Cessation. Discontinue Klonopin/Tramadol/Flexeri and take them only PRN. Contact OB-BOTTOM FINISHER cain. Referral. Surgical History Surgery Date Site/Laterality [...] on file Legal Sex Female 7:26 AM FUNDRAISING SPECIALIST Gender Identity Not on file Sexual Orientation Not on file Obstetrics History Last Filed Vital Signs Vital Sign Reading Time Taken Comments Blood Pressure 129/83 01/03/2022 8:37 PM FUNDRAISING SPECIALIST Pulse 97 01/03/2022 8:37 PM FUNDRAISING SPECIALIST Temperature 36.4 C (97.5 F) 01/03/2022 6:14 PM FUNDRAISING SPECIALIST Respiratory Rate 26 01/03/2022 8:37 PM FUNDRAISING SPECIALIST Oxygen Saturation 96% 01/03/2022 8:37 PM FUNDRAISING SPECIALIST Inhaled Oxygen Concentration - - Weight 62 kg (136 lb 11 oz) 01/03/2022 6:[address] Height 157.5 cm (5' 2) 01/03/2022 6:14 PM FUNDRAISING SPECIALIST Body Mass Index 25 01/03/2022 6:14 PM FUNDRAISING SPECIALIST Plan of Treatment Health Maintenance Due Date [...] 1995 Varicella Vaccines Discontinued 02/07/2007, 03/29/1998 Insurance Care Teams Broadcast Field Supervisor Relationship Specialty Start Date End Date Jesús Yates MD PCP - General Family Medicine 12/11/19
--- OUTSIDE RECORDS SUMMARY | 2024-10-23 11:42 | XMS_ITS | Clinical Summary ---
Author Organization [facility] Address [address] [place] [address] Phone Care Team Providers Care Bilingual Sales Representative Name Role Phone Provider, None Primary Care [...] on file Legal Sex Female 10:42 PM HARPOON ENGAGEMENT PLANNING OPERATOR Gender Identity Not on file Sexual Orientation Not on file Occupation Industry Job Start Date Job End Date Unemployed Not on file Not on file Not on file Last Filed Vital Signs Vital Sign Reading Time Taken Comments Blood Pressure 111/67 04/12/2021 2:15 PM HARPOON ENGAGEMENT PLANNING OPERATOR Pulse 82 04/12/2021 2:44 PM HARPOON ENGAGEMENT PLANNING OPERATOR Temperature 36.5 C (97.7 F) 04/12/2021 9:07 AM HARPOON ENGAGEMENT PLANNING OPERATOR Respiratory Rate 20 04/12/2021 2:44 PM HARPOON ENGAGEMENT PLANNING OPERATOR Oxygen Saturation 100% 04/12/2021 2:44 PM HARPOON ENGAGEMENT PLANNING OPERATOR Inhaled Oxygen Concentration - - Weight 51.3 kg (113 lb) 04/12/2021 9:07 AM HARPOON ENGAGEMENT PLANNING OPERATOR Height 157.5 cm (5' 2) 04/12/2021 9:07 AM HARPOON ENGAGEMENT PLANNING OPERATOR Body Mass Index 20.67 04/12/2021 9:07 AM HARPOON ENGAGEMENT PLANNING OPERATOR Plan of Treatment Health Maintenance Due Date [...] age to complete this topic Insurance MEDICAID [facility] Care Teams Bilingual Sales Representative Relationship Specialty Start Date End Date Provider, None [place] PCP - General 11/24/18
[2024-10-23 11:43] LABS: Alanine Aminotransferase 55 U/L (6-35); Albumin Level 5.0 g/dL (3.5-5.1); Alkaline Phosphatase 79 U/L (38-126); Anion Gap 13 mmol/L (4-12); Aspartate Amino Transferase 25 U/L (14-36); Bilirubin,Total 1.0 mg/dL (0.2-1.3); Blood Urea Nitrogen 10 mg/dL (7-17); Calcium 9.5 mg/dL (8.4-10.2); Carbon Dioxide 27 mmol/L (22-30); Chloride 93 mmol/L (98-107); Estimated CRCL calculation 93 ml/min; Estimated Glomerular Filt Rate > 60; Glucose 111 mg/dL (65-110); Lipase 69 U/L (23-300); Potassium 3.2 mmol/L (3.4-5.0); Sodium 133 mmol/L (137-145); Total Protein 8.4 g/dL (6.3-8.2)
[2024-10-23 11:55] LABS: Troponin I < 0.012 ng/mL (0.000-0.034)
[2024-10-23 12:00] LABS: INR 1.1; Partial Thromboplastin Time 28.7 Seconds (22.3-36.8); Prothrombin Time 14.0 Seconds (11.1-14.7)
[2024-10-23 12:04] LABS: Influenza A QL RT-PCR Negative (Negative); Influenza B QL RT-PCR Negative (Negative); RSV RNA, RT-PCR Negative (Negative); SARS-CoV-2 RNA PCR Negative (Negative)
[2024-10-23 12:08] LABS: BEDSIDEPREGUCG Negative (Negative)
[2024-10-23 12:14] LABS: Thyroid Stimulating Hormone Reflex 0.135 uIU/mL (0.465-4.68)
[2024-10-23 12:16] LABS: Add Urine Microscopic? YES; Appearance Urine Cloudy (Clear); Glucose Urine UA Negative (Negative); Leukocyte Esterase Ur 1+ LEU/UL (Negative); Nitrate Urine Negative (Negative); Non Pathogenic Casts 0-2; Specific Grav Ur 1.012 (1.001-1.035)
[2024-10-23 12:36] LABS: Cannabinoid Screen Urine Positive (Negative)
[2024-10-23 12:40] LABS: Free T4 Free Thyroxine Reflex 1.42 ng/dL (0.78-2.19)
[2024-10-23 13:21] LABS: Total Triiodothyronine (T3) 0.95 NG/ML (0.82-1.58)
--- NOTE | 2024-10-23 14:05 | ECG_ITS ---
Test Date: 2024-10-23 14:03:33 Measurements Intervals [place] Rate: 111 P: 46 ND: 148 QRS: -90 QRSD: 89 T: 30 QT: 324 QTc: 442 Interpretive Statements SINUS TACHYCARDIA INDETERMINATE AXIS POSSIBLE RIGHT VENTRICULAR CONDUCTION DELAY [RSR (QR) IN V1/V2] MODERATE T-WAVE ABNORMALITY, CONSIDER LATERAL ISCHEMIA [-0.1+ mV T WAVE IN I/aVL/V5/V6] ABNORMAL ECG Electronically Signed On 10-23-2024 17:58:35 CDT by Michael Garay M.D.
[2024-10-23 14:27] LABS: Troponin I < 0.012 ng/mL (0.000-0.034)
[2024-10-23] MEDS: SULFAMETHOXAZOLE/TRIMETHOPRIM 800/160 MG DS TABLET 2 TAB PO (16:02)
[2024-10-23] MEDS: PROMETHAZINE HCL 25 MG SUPP.RECT RECTAL (16:02)
--- NOTE | 2024-10-23 16:20 | ECG_ITS ---
Test Date: 2024-10-23 16:20:37 Measurements Intervals [place] Rate: 94 P: 44 ME: 170 QRS: -29 QRSD: 83 T: 31 QT: 359 QTc: 450 Interpretive Statements SINUS RHYTHM BORDERLINE LEFT AXIS DEVIATION [QRS AXIS < -20] POSSIBLE RIGHT VENTRICULAR CONDUCTION DELAY [RSR (QR) IN V1/V2] NONSPECIFIC T-WAVE ABNORMALITY ABNORMAL ECG Electronically Signed On 10-23-2024 18:00:32 CDT by Michael Garay M.D.
[2024-10-23 16:28] LABS: Anion Gap 8 mmol/L (4-12); Blood Urea Nitrogen 9 mg/dL (7-17); Calcium 8.4 mg/dL (8.4-10.2); Carbon Dioxide 26 mmol/L (22-30); Chloride 99 mmol/L (98-107); Estimated CRCL calculation 104 ml/min; Estimated Glomerular Filt Rate > 60; Glucose 94 mg/dL (65-110); Potassium 3.5 mmol/L (3.4-5.0); Sodium 133 mmol/L (137-145)
== END 2024-10-23 17:15 | disposition home or self-care (01) ==
PROVIDERS: Emergency Provider Registered Nurse; PCP Nurse Practitioner Family
DX: R00.0 Tachycardia, unspecified (principal); R11.11 Vomiting without nausea; F12.90 Cannabis use, unspecified, uncomplicated; R94.6 Abnormal results of thyroid function studies; Z20.822 Contact with and (suspected) exposure to COVID-19; Z87.891 Personal history of nicotine dependence; R94.31 Abnormal electrocardiogram [ECG] [EKG]
CPT/HCPCS: 36415; 71046; 80048; 80053; 80307; 81001; 81025; 83605; 83690; 84439; 84443; 84480; 84484; 85025; 85380; 85610; 85730; 87086; 87637; 93005; 96361; 96374; 99284; A9270; J1790; J7030

== ENCOUNTER 2024-11-04 13:18 | Emergency (ER) | payer OTHER, SELFPAY ==
--- OUTSIDE RECORDS SUMMARY | 2024-11-04 09:00 | XMS_ITS | Encounter Summary ---
Author Organization [facility] Healthcare Address [address] [place] [address] Care Team Providers Care Cardiac Cath Technician Name Role Phone Jesús Yates MD Primary Care Provider [phone] Reason for Referral * MRI/CAT/PET Scan (Routine) - Pending Review Specialty Diagnoses / Procedures Referred By Choco t Referred To Contact Radiology Diagnoses Abdominal pain Gastroesophageal reflux disease, unspecified whether esophagitis present Nausea and vomiting, unspecified vomiting type Weight loss Procedures CT Abdomen Pelvis W Contrast Guicho Thomas DO [address] [place] [address] Phone: tel: fax: [address] [phone] Referral ID Status Reason Start Date Expiration Date V isits Requested Visits Authorized [id number] Pending Review 11/04/2024 12/04/2025 1 1 Reason for Visit * Reason Comments Vomiting Pt stated she been f eeling bad for 4wks vomiting, loss of appetite,cramping stomach pain, went to er got fluids negative results for covid and flu, pt stated she has chills and can't keep any food down, starting to loose weight * Consultation (Routine) - Authorized Specialty Diagnoses / Procedures Referred By Contac t Referred To Contact Gastroenterology Diagnoses Nausea and vomiting, unspecified vomiting type Mere Mckeon, KALEIGH [address] [facility] [address] [place] [address] Phone: tel: fax: [facility] Gastroenterology at [address] [place] [address] Phone: tel: fax: Referral ID Status Reason Start Date Expiration Date Visits Requested Visits Authorized [id number] Authorized Specialty Services Required 10/28/2024 11/27/2025 6 6 Encounter Details Date Type Department Care Team (Latest Contact Info) Description 11/04/2024 9:00 AM CDT Office Visit [facility] Gastroenterology at [address] [place] [phone] Guicho Thomas, [address] [place] [address] Abdominal pain (Primary Dx); Gastroesophageal reflux disease, unspecified whether esophagitis present; Nausea and vomiting, unspecified vomiting type; Weight loss; Family history of colon cancer; Chronic idiopathic constipation Social History Tobacco Use Types Packs/Day Years Used Date Smoking Tobacco: Every Day Smokeless Tobacco: Never Alcohol Use Standard Drinks/Week Comments Yes 0 (1 standard drink = 0.6 oz pur e alcohol) PHQ-2 Answer Date Recorded PHQ-2 Total Score (If total score is 3 or more points, staff should administer the PHQ-9) 2 12/08/2019 AUDIT-C Answer Date Recorded Q1: How often do you have a drink containing alc ohol? 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 Gender Identity Not on file Sexual Orientation Not on file documented as of this encounter Last Filed Vital Signs Vital Sign Reading Time Taken Comments Blood Pressure 130/90 11/04/2024 9:03 AM CDT Pulse 119 11/04/2024 9:03 AM CDT Temperature - - Respiratory Rate - - Oxygen Saturation 98% 11/04/2024 9:03 AM CDT Inhaled Oxygen Concentration - - Weight 49.5 kg (109 lb 3.2 oz) 11/04/2024 9:03 A M CDT Height 157.5 cm (5' 2) 11/04/2024 9:03 AM CDT Body Mass Index 19.97 11/04/2024 9:03 AM CDT documented in this encounter Functional Status documented as of this encounter Ordered Prescriptions Prescription Sig Dispense Quantity Refills Last Filled Start Date End Date omeprazole (PriLOSEC) 40 mg capsule Take 1 capsule (40 mg total) by mouth daily 90 capsule 3 11/04/2024 documented in this encounter Progress Notes * Guicho Thomas, DO - 11/04/2024 9:00 AM CDT Images from the original note were not included. PATIENT DEMOGRAPHICS Aisha Cuevas is a 29 y.o. White female. CHIEF COMPLAINT Referring Provider: Jesús Yates MD Chief Complaint Patient presents with Vomiting Pt stated she been feeling bad for 4wks vomiting, loss of appetite,cramping stomach pain, went to er got fluids negative results for covid and flu, pt stated she has chills and can't keep any food down, starting to loose weight GI ASSESSMENT/PLAN Assessment/Plan Abdominal pain, nausea, vomiting, and unintentional weight loss. This is multifactorial in origin. GERD, cannabis hyperemesis, anxiety, and dyspepsia consideration. Peptic ulcer disease needs to be considered. -EGD. -CT scan of the abdomen and pelvis. -Laboratory studies including thyroid functions. -Avoid NSAIDs. -Omeprazole 40 mg q.a.m.. -Avoidance of all cannabis/marijuana products. Upper and lower abdominal pain with referral to the right lower quadrant. This is associated with chronic constipation. IBS C and chronic idiopathic constipation are consideration. I doubt IBD. -CT scan of the abdomen and pelvis as above. -Fiber tablets once a day. Follow up with 2 large glasses of water. -[employer] or CloudLock per label instructions. -MiraLax equivalent 1 capful 2-3 times per day as needed. -Colonoscopy when nausea and vomiting improved. Family history of colon cancer. Last colonoscopy October of 2017. Colonoscopy was unremarkable. -We will schedule colonoscopy after the EGD as completed. Elevated ALT greater than 100. AST is completely normal. This is nonspecific. -We will repeat routine blood work including AST and ALT. RTC: After EGD and colonoscopies completed. Past Medical History: Diagnosis Date Asthma Chronic idiopathic constipation SONIDO (generalized anxiety disorder) IBS (irritable colon syndrome) Marijuana use MDD (major depressive disorder) Tobacco abuse Past Surgical History: Procedure Laterality Date COLONOSCOPY ESOPHAGOGASTRODUODENOSCOPY TONSILLECTOMY TUBAL LIGATION TYMPANOSTOMY TUBE PLACEMENT HPI/ROS This very pleasant 29-year-old female with the above past medical history is resting comfortably inexam room. The patient has an extensive history of GI problems. The patient reports increasing nausea and vomiting for the last 4 weeks. She has been unable to keep very much food down. She reports asignificant weight loss for proximally 30 lb in the last 4 weeks. She denies any dysphagia or odynophagia. Her appetite is poor and she has no desire to eat. She complains of abdominal pain in the upper and lower abdomen that is sometimes referral to the right lower quadrant. She denies any fever, chills, or night sweats. She has significant polydipsia and always feels anxious and depressed. The patient has scheduled a visit with a psychiatrist to get her anxiety and depression under control. The patient does have history is significant cannabis use on a daily basis. She discontinued cannabisabout 4 weeks ago. She has been encouraged to continue to abstain from any form of cannabis/marijuana. Patient does admit to vaping nicotine and a daily basis. She feels this helps her nerves. The patient has a long-term history of chronic constipation. She reports very little bowel movements for several days. When she does have a bowel movement edges consists of small rabbit like gail.She had a colonoscopy back in 2017 which was unremarkable. Her father had a history of colon cancerin his 50s. She denies any hematochezia, melena, or acholic stools. I did review the patient's blood work. She was noted to have an elevated ALT with a normal AST. However, this was ascertain from her MyChart. Patient has had no recent GI Imaging. She had an EGD backin 2022 which revealed a duodenal polyp which was of no consequence. She was H pylori negative at the time. GI FMH: Father colorectal cancer. 50s. Smoking: Vape Nicotine. EtOH: Negative. Drugs/Cannabis: Marijuana use. Quit 09/2024. ROS: 14 point ROS is negative except as mentioned in HPI. GI PROCEDURES (not all inclusive) EGD 06/02/2022: Duodenal polyp. Pathology: Duodenal mucosa. Cautery artifact. Negative for H pylori. Colonoscopy 10/31/2017: Postoperative Diagnosis: 1. Normal TI and colon mucosa 2. Medium size internal hemorrhoids Pathology: Final Diagnosis A Colon, right, biopsy: - No pathologic diagnosis. B Colon, terminal ileum, biopsy: - No pathologic diagnosis. C Colon, left, biopsy: - No pathologic diagnosis. EGD 07/18/2017: Post-operative Diagnosis: 1. Normal EGD Pathology: FARSHAD test negative. Final Diagnosis Small intestine, duodenum, endoscopic biopsy: 1. Negative for significant histopathologic abnormalities Stomach, random endoscopic biopsy: 1. Oxyntic gland type mucosa with mild chronic gastritis 2. Lymphoid aggregates 3. Negative for Helicobacter-like organisms (by immunohistochemical stain) GI IMAGING (not all inclusive) Nuclear medicine gastric emptying study 05/30/2021: IMPRESSION: Normal gastric emptying. XR ABDOMEN KUB FLAT PLATE 04/12/2021: Anatomical Region Laterality Modality Abdomen -- Digital Radiography Impression IMPRESSION: Nonobstructed bowel-gas pattern. CT abdomen and pelvis 11/21/2019: IMPRESSION: 1. Mild thickening of the colon, suggesting a mild colitis, most likely infectious or inflammatory in a patient of this age. There is no bowel obstruction, free intraperitoneal air or free fluid. 2. Appendix normal. 3. Left ovarian cyst measuring 2.5 cm likely physiologic in a patient of this age. Larger cysts were demonstrated on prior CT examinations. 4. No CT evidence of cholelithiasis or cholecystitis. CT abdomen and pelvis 07/03/2017: IMPRESSION: Findings suggestive of mild enteritis. Short segment intussusception of the small bowel loops in the left upper quadrant, incidental finding which is likely self limiting. US ABDOMEN LIMITED LEVEL 3 THREE ORGAN 06/21/2017: Anatomical Region Laterality Modality Abdomen -- Ultrasound Impression IMPRESSION: Unremarkable right upper quadrant abdominal ultrasound. CT ABDOMEN PELVIS W/ CONTRAST 05/23/2017: Anatomical Region Laterality Modality Abdomen -- Computed Tomography Impression IMPRESSION: 1.Evidence for colitis, most pronounced of the right hemicolon and proximal transverse colon. No bowel wall pneumatosis or free air. Normal appendix. 2.Mild periportal edema, a nonspecific finding, which can be due to many etiologies. Recommend correlation with liver function tests. The portal veins are patent. 3.Evidence for a 5 cm cyst of the left ovary. Recommend ultrasound follow-up in 6 weeks to document resolution, or earlier as clinically warranted if there is high clinical suspicion for ovarian torsion. There is a moderate amount of simple appearing free pelvic fluid, which may be related to recent rupture of an ovarian cyst or follicle. CT abdomen and pelvis 09/09/2016: IMPRESSION: 1. Mild to moderate distention of fluid-filled stomach and duodenum to junction of 3rd and 4th portions with remainder of bowel appearing normal. Question gastroenteritis. 2. Normal appendix. 3. No other abdominal or pelvic abnormality seen. CT ABDOMEN PELVIS W/ CONTRAST 12/20/2015: Anatomical Region Laterality Modality Abdomen -- Computed Tomography Impression IMPRESSION: 1. Esophageal reflux. 2. No bowel obstruction. 3. Normal appendix. GI LABS (not all inclusive) No current labs. Historical Data Allergies Allergen Reactions Compazine [Prochlorperazine] Anxiety Reglan [Metoclopramide Hcl] Anxiety Current Outpatient Medications: acetaminophen (TYLENOL) 325 mg tablet, Take 650 mg by mouth every 6 (six) hours as needed for pain,Disp: , Rfl: diphenhydrAMINE (diphenhydrAMINE) 25 mg capsule, Take 1 tablet/capsule (25 mg total) by mouth every6 (six) hours as needed (take as needed with compazine for anxiety), Disp: 20 capsule, Rfl: 0 prochlorperazine (COMPAZINE) 25 mg suppository, Insert 1 suppository (25 mg total) into the rectum every 12 (twelve) hours as needed for nausea or vomiting, Disp: 12 suppository, Rfl: 0 omeprazole (PriLOSEC) 40 mg capsule, Take 1 capsule (40 mg total) by mouth daily, Disp: 90 capsule,Rfl: 3 Social History Tobacco Use Smoking status: Every Day Smokeless tobacco: Never Substance and Sexual Activity Drug use: Yes Types: Marijuana Sexual activity: Yes Partners: Male Alcohol Use: Not At Risk (11/04/2024) AUDIT-C Frequency of Alcohol Consumption: Never Average Number of Drinks: Not on file Frequency of Binge Drinking: Not on file Family History Problem Relation Age of Onset No Known Problems Mother Colon cancer Father PHYSICAL EXAM Blood pressure 130/90, pulse 119, height 157.5 cm (5' 2), weight 49.5 kg (109 lb 3.2 oz), SpO2 98%, not currently . Body mass index is 19.97 kg/m??. Gen: Patient alert, no distress, and looks stated age. HEENTN: Head normocephalic, sclera clear, and neck was supple. HRRR. Lungs CTA. ABD: soft without masses, tenderness, or rigidity. Bowel sounds active. PATRICIA: no significant joint tenderness or swelling. Neurologic: Non-focal. Skin: warm and dry. Mental Status: Alert, oriented, and cooperative. Rectal: Deferred. Voice recognition software (EventRegist Direct) was used to complete this document. Despite proofreading, exercise scientist variances and typographical errors may occur. Guicho Thomas DO documented in this encounter Plan of Treatment Upcoming Encounters Date Type Department Care Team (Latest Contact Info) Description 11/25/2024 9:30 AM CDT Hospital Encounter [address] [address] Guicho Thomas DO [address] [facility] [address] [place] [address] [place] [address] 11/25/2024 9:30 AM CDT - 11/25/2024 9:51 AM CDT Surgery [address] [address] Guicho Thomas DO [address] [facility] [address] [place] [address] [place] [id number] ESOPHAGOGASTRODUODENOSCOPY Pending Results Name Type Priority Associated Diagnoses Date /Time Hepatitis panel, acute Blood Microbiology Routine Abdominal pain Gastroesophageal reflux disease, unspecified whether esophagitis present Nausea and vomiting, unspecified vomiting type Weight loss 11/04/2024 10:06 AM CDT Hepatitis A antibody, total Blood Microbiology Routine Abdominal pain Gastroesophageal reflux disease, unspecified whether esophagitis present Nausea and vomiting, unspecified vomiting type Weight loss 11/04/2024 10:06 AM CDT Hepatitis B surface antibody (immune status) Blood Microbiology Routine Abdominal pain Gastroesophageal reflux disease, unspecified whether esophagitis present Nausea and vomiting, unspecified vomiting type Weight loss 11/04/2024 10:06 AM CDT Copper, serum Lab Routine Abdominal pain Gastroesophageal reflux disease, unspecified whether esophagitis present Nausea and vomiting, unspecified vomiting type Weight loss 11/04/2024 10:06 AM CDT Scheduled Orders Name Type Priority Associated Diagnoses Orde r Schedule Hepatitis panel, acute Blood Microbiology Routine Abdominal pain Gastroesophageal reflux disease, unspecified whether esophagitis present Nausea and vomiting, unspecified vomiting type Weight loss Expected: 11/04/2024 (Approximate), Expires: 11/04/2025 Hepatitis A antibody, total Blood Microbiology Routine Abdominal pain Gastroesophageal reflux disease, unspecified whether esophagitis present Nausea and vomiting, unspecified vomiting type Weight loss Expected: 11/04/2024 (Approximate), Expires: 11/04/2025 Hepatitis B surface antibody (immune status) Blood Microbiology Routine Abdominal pain Gastroesophageal reflux disease, unspecified whether esophagitis present Nausea and vomiting, unspecified vomiting type Weight loss Expected: 11/04/2024 (Approximate), Expires: 11/04/2025 CT Abdomen Pelvis W Contrast Imaging Schedule Routine, Read Routine (OP Routine) Abdominal pain Gastroesophageal reflux disease, unspecified whether esophagitis present Nausea and vomiting, unspecified vomiting type Weight loss Expected: 11/04/2024, Expires: 11/04/2025 Copper, serum Lab Routine Abdominal pain Gastroesophageal reflux disease, unspecified whether esophagitis present Nausea and vomiting, unspecified vomiting type Weight loss Expected: 11/04/2024 (Approximate), Expires: 11/04/2025 Scheduled Procedures Name Priority Associated Diagnoses Date/Ti me ESOPHAGOGASTRODUODENOSCOPY Nausea and vomiting, unspecified vomiting type Gastroesophageal reflux disease, unspecified whether esophagitis present 11/25/2024 9:30 AM CDT documented as of this encounter Results * Folate (11/04/2024 10:06 AM CDT) Folic acid 16.6 >=5.0 ng/mL MAGDA DUKES (CHRISTY) Blood 11/04/2024 10:0 6 AM CDT 11/04/2024 10:50 AM CDT us Guicho Thomas DO LAB BLOOD ORDERABLES Final Res ult MAGDA DUKES (CHRISTY) 1 [facility] [place] [address] * (ABNORMAL) Iron profile w/ IBC (11/04/2024 10:06 AM CDT) Iron 48 35 - 145 mcg/dL [facility] ([place]) TIBC 329 250 - 400 mcg/dL [facility] ([place]) Transferrin saturation 15(L) 20 - 50 % [facility] ([place]) Blood 11/04/2024 10:0 6 AM CDT 11/04/2024 10:50 AM CDT Guicho Thomas DO LAB BLOOD ORDERABLES Final Res ult MAGDA DUKES ([place]RISTY) 1 [facility] [place] [address] * (ABNORMAL) Vitamin B12 (11/04/2024 10:06 AM CDT) Vitamin B12 1,461(H) 230 - 1,250 pg/mL [facility] ([place]) Blood 11/04/2024 10:0 6 AM CDT 11/04/2024 10:50 AM CDT Guicho Thomas DO LAB BLOOD ORDERABLES Final Res ult MAGDA DUKES ([place]RISTY) 1 [facility] [place] [address] * Ferritin (11/04/2024 10:06 AM CDT) Ferritin 74 13 - 150 ng/mL [facility] ([place]) Blood 11/04/2024 10:0 6 AM CDT 11/04/2024 10:50 AM CDT Guicho Thomas DO LAB BLOOD ORDERABLES Final Res ult MAGDA DUKES ([place]ST[place]) 1 [facility] [place] [address] * (ABNORMAL) Lipid panel (11/04/2024 10:06 AM CDT) [facility] Signature Cholesterol 132 30 - 199 mg/dL [facility] ([place]) Comment: Interpretive Data Ages < or = 19 years Acceptable: <170 mg/dL Borderline high: 170-199 mg/dL High: >or= 200 mg/dL Ages > or = 20 years Desirable: <200 mg/dL Borderline high: 200-239 mg/dL High: >or= 240 mg/dL Literature References: 1. Expert Panel on Integrated Guidelines for Cardiovascular Health and Risk Reduction in Children and Adolescents. Pediatrics 2011;128:S213 2. NCEP Expert Panel. Circulation 2004;110:227 Current Interpretive Data was last revised on 2017. Triglycerides 86 <=149 mg/dL MAGDA DUKES ([place]ST[place]) Comment: Interpretive Data Ages < or = 9 years Acceptable: <75 mg/dL Borderline high: 75-99 mg/dL High: >or= 100 mg/dL Ages 10 to 20 years Acceptable: <90 mg/dL Borderline high: 90-129 mg/dL High: >or= 130 mg/dL Ages > or = 20 years Desirable: <150 mg/dL Borderline high: 150-199 mg/dL High: 200-499 mg/dL Very high: >or= 499 mg/dL Literature References: 1. Expert Panel on Integrated Guidelines for Cardiovascular Health and Risk Reduction in Children and Adolescents. Pediatrics 2011;128:S213 2. NCEP Expert Panel. Circulation 2004;110:227 Current Interpretive Data was last revised on 2017. HDL 37(L) >=40 mg/dL MAGDA GONZALEZ [facility] ([place]) Comment: Interpretive Data Ages < or = 19 years Acceptable: >45 mg/dL Borderline low: 40-45 mg/dL Low: <40 mg/dL Ages > or = 20 years Desirable: >or= 60 mg/dL Low: <40 mg/dL Literature References: 1. Expert Panel on Integrated Guidelines for Cardiovascular Health and Risk Reduction in Children and Adolescents. Pediatrics 2011;128:S213 2. NCEP Expert Panel. Circulation 2004;110:227 Current Interpretive Data was last revised on 2017. LDL, calculated 78 <=129 mg/dL MAGDA DUKES ([place]) Comment: Interpretive Data Ages < or = 19 years Acceptable: <110 mg/dL Borderline high: 110-129 mg/dL High: >or= 130 mg/dL Ages > or = 20 years Optimal: <100 mg/dL Near optimal: 100-129 mg/dL Borderline high: 130-159 mg/dL High: >160 mg/dL Calculated using the Allan LDL-C estimating equation. This equation was implemented on 2023. Prior to this date LDL-C was estimated using the Friedewald equation. Literature References: 1. Expert Panel on Integrated Guidelines for Cardiovascular Health and Risk Reduction in Children and Adolescents. Pediatrics 2011;128:S213 2. NCEP Expert Panel. Circulation 2004;110:227 3. Allan Mccallum et al. SAVANA Cardiol. 2020 June 05;5(5):540-548. doi: 10.1001/jamacardio.2020.0013 Current Interpretive Data was last revised on 2023. Testing performed by: [place], [address] Non-HDL Cholesterol 95 mg/dL MAGDA DUKES ([place]RISTY) Comment: Interpretive Data Ages < or = 19 years Acceptable: <120 mg/dL Borderline high: 120-144 mg/dL High: >145 mg/dL Ages > or = 20 years When triglycerides are >200 mg/dL, Non-HDL cholesterol is a secondary target of therapy with treatment goals that are 30 mg/dL greater than the LDL cholesterol target. Literature References: 1. Expert Panel on Integrated Guidelines for Cardiovascular Health and Risk Reduction in Children and Adolescents. Pediatrics 2011;128:S213 2. NCEP Expert Panel. Circulation 2004;110:227 Current Interpretive Data was last revised on 2017. Testing performed by: [place], [address] Chol/HDL ratio 4 [facility] ([place]) Comment:Testing performed by : [place], [address] Blood 11/04/2024 10:0 6 AM CDT 11/04/2024 10:50 AM CDT Guicho Thomas DO LAB BLOOD ORDERABLES Final Res ult MAGDA DUKES ([place]RISTY) 1 [facility] [place] [address] * TSH (11/04/2024 10:06 AM CDT) Thyroid Stimulating Hormone 0.45 0.30 - 4.20 mcIUnit/mL MAGDA DUKES ([place]ST[place]) Blood 11/04/2024 10:0 6 AM CDT 11/04/2024 10:50 AM CDT Guicho Thomas DO LAB BLOOD ORDERABLES Final Res ult Performing Organization Address [facility]/ZIP Co de Phone Number MAGDA DUKES ([place]) 1 [facility] [place] [address] * Thyroid Function [place] (11/04/2024 10:06 AM CDT) TSH 0.45 0.30 - 4.20 mcIUnit/mL MAGDA [facility] ([place]) Blood 11/04/2024 10:0 6 AM CDT 11/04/2024 10:50 AM CDT Guicho Thomas DO LAB BLOOD ORDERABLES Final Res ult Performing Organization Address City/[facility]/ZIP Co de Phone Number MAGDA DUKES ([place]) 1 [facility] [place] [address] * CRP (acute phase) (11/04/2024 10:06 AM CDT) CRP <3.0 <=10.0 mg/L MAGDA [facility]era ([place]) Blood 11/04/2024 10:0 6 AM CDT 11/04/2024 10:50 AM CDT Guicho Thomas DO LAB BLOOD ORDERABLES Final Res ult MAGDA DUKES ([place]) [address] [place] [address] * Protime-INR (11/04/2024 10:06 AM CDT) PT 13.1 10.2 - 13.5 sec [facility] INR 1.16 0.90 - 1.20 [facility] Comment: Interpretive data Oral anticoagulant therapeutic ranges: Venous thromboembolism prophylaxis or treatment: 2.0-3.0 CARDIOLOGY Standard range: 2.0-3.0 High-intensity range: 2.5-3.5 Refer to indication-specific guidelines for appropriate target ranges for prosthetic heart valve replacement. Current interpretive data was last revised on 2019. Blood 11/04/2024 10:0 6 AM CDT 11/04/2024 10:50 AM CDT Guicho Thomas DO LAB BLOOD ORDERABLES Final Res ult Performing Organization Address City/[facility]/ZIP Co de Phone Number [facility] ([place]) [address] [place] [address] * Phosphorus (11/04/2024 10:06 AM CDT) Phosphorus, pl 3.1 2.3 - 4.5 mg/dL [facility] Blood 11/04/2024 10:0 6 AM CDT 11/04/2024 10:50 AM CDT Guicho Thomas DO LAB BLOOD ORDERABLES Final Res ult [facility]) [address] [place] [address] * Magnesium (11/04/2024 10:06 AM CDT) Magnesium 2.1 1.4 - 2.5 mg/dL [facility] Blood 11/04/2024 10:0 6 AM CDT 11/04/2024 10:50 AM CDT us Guicho Thomas DO LAB BLOOD ORDERABLES Final Res ult MAGDA HEREDIAN) 1 [facility] Department [place] [address] * (ABNORMAL) Basic metabolic panel (11/04/2024 10:06 AM CDT) Sodium 135 135 - 145 mmol/L [facility] ([place]) Potassium, pl 3.0(C) 3.3 - 4.9 mmol/L [facility] ([place]) Comment:Critical Result call ed by [email or web address] at 2024-11-04 12:43:32. Result Read Back by William Lindo MD Chloride 88(L) 97 - 110 mmol/L [facility] ([place]) CO2 24 22 - 32 mmol/L [facility] ([place]) Anion gap 23(H) 2 - 15 mmol/L [facility] ([place]) BUN 7 6 - 25 mg/dL [facility] ([place]) Creatinine 0.63 0.60 - 1.10 mg/dL [facility] ([place]) Glucose 104 70 - 199 mg/dL [facility] ([place]) Comment: Interpretive Data Fasting glucose >/= 126 mg/dl is diagnostic for diabetes. Fasting is defined as no caloric intake for at least 8 hours. Fasting glucose between 100 mg/dl to 125 mg/dl is diagnostic of prediabetes. In a patient with classic symptoms of hyperglycemia or hyperglycemic crisis, a random glucose >/= 200 mg/dl is diagnostic for diabetes. In the absence of unequivocal hyperglycemia, results should be confirmed by repeat testing. The classification and Diagnosis of Diabetes Diabetes Care 202; 46: S19-S40. Current interpretive data was last revised 2022. Calcium 10.5(H) 8.5 - 10.3 mg/dL [facility] Blood 11/04/2024 10:0 6 AM CDT 11/04/2024 10:50 AM CDT us Guicho Thomas DO LAB BLOOD ORDERABLES Final Res ult [facility] ([place]) 1 [facility] [place] [address] * (ABNORMAL) CBC with auto differential (11/04/2024 10:06 AM CDT) Pathologist [facility] WBC 8.52 3.80 - 9.90 K/cumm Hgb 15.3 11.9 - 15.5 g/dL [facility]) Hct 43.0 35.6 - 45.5 % [facility] Plt 312 150 - 400 K/cumm [facility] MPV 13.2(H) 9.1 - 12.3 fL [facility] RBC 4.97 3.90 - 5.20 M/cumm [facility]) MCV 86.5 81.3 - 96.4 fL [facility] MCH 30.8 27.1 - 33.3 pg [facility]) MCHC 35.6 32.3 - 35.7 g/dL [facility]) RDW CV 12.6 11.1 - 14.9 % [facility]) RDW SD 39.2 35.7 - 48.1 fL [facility]) NRBC abs 0.00 0.00 - 0.01 K/cumm [facility]) Blood 11/04/2024 10:0 6 AM CDT 11/04/2024 10:50 AM CDT Guicho Thomas DO LAB BLOOD ORDERABLES Final Res ult MAGDA DUKES ([place]) 1 [facility] Department [place] [address] * (ABNORMAL) Hepatic function panel (11/04/2024 10:06 AM CDT) [facility] Bilirubin, total 0.8 0.1 - 1.2 mg/dL [facility]) Bilirubin, direct 0.3 0.1 - 0.3 mg/dL [facility] ([place]) Protein, pl 7.7 6.5 - 8.5 g/dL [facility]) Albumin 5.2(H) 3.5 - 5.0 g/dL [facility] ([place]) Alk phos 65 40 - 130 Units/L [facility]) ALT 20 7 - 45 Units/L [facility]) AST 21 10 - 45 Units/L [facility]) Blood 11/04/2024 10:0 6 AM CDT 11/04/2024 10:50 AM CDT us Guicho Thomas DO LAB BLOOD ORDERABLES Final Res ult [facility] ([place]) 1 [facility] Department [place] [address] documented in this encounter Visit Diagnoses Diagnosis Abdominal pain- Primary Abdominal pain, unspecified site Gastroesophageal reflux disease, unspecified whether esophagitis present Nausea and vomiting, unspecified vomiting type Weight loss Loss of weight Family history of colon cancer Family history of malignant neoplasm of gastrointestinal tract Chronic idiopathic constipation Unspecified constipation Nausea and vomiting, unspecified vomiting type Gastroesophageal reflux disease, unspecified whether esophagitis present documented in this encounter Orders Outpatient Referral Count Last Ordered Date st Ordered Date AMB REFERRAL TO GASTROENTEROLOGY 1 11/05/19 25 documented in this encounter Care Teams Cardiac Cath Technician Relationship Specialty Start Date End Date Jesús Yates MD PCP - General Family Medicine 12/11/19 documented as of this encounter
--- OUTSIDE RECORDS SUMMARY | 2024-11-04 09:55 | XMS_ITS | Encounter Summary ---
Author Organization [facility] Healthcare Address [address] [place] [address] Care Team Providers Care Staffing Operations Manager Name Role Phone Jesús Yates MD Primary Care Provider [phone] Encounter Details Date Type Department Care Team (Late st Contact Info) Description 11/04/2024 9:55 AM CDT Lab [address] Abdominal pain; Gastroesophageal reflux disease, unspecified whether esophagitis present; Nausea and vomiting, unspecified vomiting type; Weight loss Social History Tobacco Use Types Packs/Day Years [...] on file Legal Sex Female 7:26 AM [employer]ACKET [employer]ANG[employer] Gender Identity Not on file Sexual Orientation Not on file documented as of this encounter Functional Status documented as of this encounter Plan of Treatment Upcoming Encounters Date Type Department Care Team (Latest Contact Info) Description 11/25/2024 9:30 AM CDT Hospital Encounter [facility] [address] [place] [address] Guicho Thomas DO [address] [place] [address] [place] [address] 11/25/2024 9:30 AM CDT - 11/25/2024 9:51 AM CDT Surgery [facility] [address] [place] [address] Guicho Thomas DO [address] [facility] [place] [address] ESOPHAGOGASTRODUODENOSCOPY Pending Results Name Type Priority Associated Diagnoses Date /Time Copper, serum Lab Routine Abdominal pain Gastroesophageal [...] Weight loss 11/04/2024 10:06 AM CDT Hepatitis panel, acute Blood Microbiology Routine Abdominal pain Gastroesophageal reflux disease, unspecified whether esophagitis present Nausea and vomiting, unspecified vomiting type Weight loss 11/04/2024 10:06 AM CDT Scheduled Procedures Name Priority Associated Diagnoses Date/Ti me ESOPHAGOGASTRODUODENOSCOPY Nausea and vomiting, unspecified vomiting type Gastroesophageal reflux disease, unspecified whether esophagitis present 11/25/2024 9:30 AM CDT documented as of this encounter Procedures Procedure Name Priority Date/Time Associated Diagnosis Comments EGFR Routine 11/04/2024 10:06 AM CDT Abdominal pain Gastroesophageal reflux disease, unspecified whether esophagitis present Nausea and vomiting, unspecified vomiting type Weight loss DIFFERENTIAL AUTO Routine 11/04/2024 10: 06 AM CDT Abdominal pain Gastroesophageal reflux disease, unspecified whether esophagitis present Nausea and vomiting, unspecified vomiting type Weight loss THYROID FUNCTION CASCADE Routine 11/04/2024 10:06 AM CDT Abdominal pain Gastroesophageal reflux disease, unspecified whether esophagitis present Nausea and vomiting, unspecified vomiting type Weight loss IRON PROFILE W/ IBC Routine 11/04/2024 1 0:06 AM CDT Abdominal pain Gastroesophageal reflux disease, unspecified whether esophagitis present Nausea and vomiting, unspecified vomiting type Weight loss CBC WITH AUTO DIFFERENTIAL Routine 11/04/2024 10:06 AM CDT Abdominal pain Gastroesophageal reflux disease, unspecified whether esophagitis present Nausea and vomiting, unspecified vomiting type Weight loss PROTIME-INR Routine 11/04/2024 10:06 AM CDT Abdominal pain Gastroesophageal reflux disease, unspecified whether esophagitis present Nausea and vomiting, unspecified vomiting type Weight loss CRP (ACUTE PHASE) Routine 11/04/2024 10: 06 AM CDT Abdominal pain Gastroesophageal reflux disease, unspecified whether esophagitis present Nausea and vomiting, unspecified vomiting type Weight loss TSH Routine 11/04/2024 10:06 AM CDT Abdominal pain Gastroesophageal reflux disease, unspecified whether esophagitis present Nausea and vomiting, unspecified vomiting type Weight loss PHOSPHORUS Routine 11/04/2024 10:06 AM CDT Abdominal pain Gastroesophageal reflux disease, unspecified whether esophagitis present Nausea and vomiting, unspecified vomiting type Weight loss MAGNESIUM Routine 11/04/2024 10:06 AM CDT Abdominal pain Gastroesophageal reflux disease, unspecified whether esophagitis present Nausea and vomiting, unspecified vomiting type Weight loss FOLATE Routine 11/04/2024 10:06 AM CDT Abdominal pain Gastroesophageal reflux disease, unspecified whether esophagitis present Nausea and vomiting, unspecified vomiting type Weight loss FERRITIN Routine 11/04/2024 10:06 AM CDT Abdominal pain Gastroesophageal reflux disease, unspecified whether esophagitis present Nausea and vomiting, unspecified vomiting type Weight loss VITAMIN B12 Routine 11/04/2024 10:06 AM CDT Abdominal pain Gastroesophageal reflux disease, unspecified whether esophagitis present Nausea and vomiting, unspecified vomiting type Weight loss HEPATIC FUNCTION PANEL Routine 11/04/2024 10:06 AM CDT Abdominal pain Gastroesophageal reflux disease, unspecified whether esophagitis present Nausea and vomiting, unspecified vomiting type Weight loss LIPID PANEL Routine 11/04/2024 10:06 AM CDT Abdominal pain Gastroesophageal reflux disease, unspecified whether esophagitis present Nausea and vomiting, unspecified vomiting type Weight loss BASIC METABOLIC PANEL Routine 11/04/2024 10:06 AM CDT Abdominal pain Gastroesophageal reflux disease, unspecified whether esophagitis present Nausea and vomiting, unspecified vomiting type Weight loss documented in this encounter Results * eGFR (11/04/2024 10:06 AM CDT) eGFR >90 >=60 mL/min/1. 73 m2 Comment: Interpretive Data Reference Interval Normal >/= 90 mL/min/1.73m2 Mildly decreased* 60 - 89 mL/min/1.73m2 Mildly to moderately decreased 45 - 59 mL/min/1.73m2 Moderately to severely decreased 30 - 44 mL/min/1.73m2 Severely decreased 15 - 29 mL/min/1.73m2 Kidney Failure < 15 mL/min/1.73m2 *Relative to young adult level Estimated glomerular filtration rate is determined by the 2020 CKD-EPI equation recommended by the National Kidney Foundation (A Unifying Approach to GFR Estimation: Recommendations of the NKF-ASK Task Force on Reassessing the Inclusion of Race in Diagnosing Kidney Disease, JASN 2020). The CKD-EPI equation should not be used for patients with unstable renal function and has not been validated in children and those over 70. Current interpretive data was last reviewed 2020. Blood 11/04/2024 10:0 6 AM CDT 11/04/2024 10:50 AM CDT us Guicho Thomas DO LAB BLOOD ORDERABLES Final Res ult [facility] [place] 1 [facility] Department of Laboratories [place], [place] [id number] * Differential, auto (11/04/2024 10:06 AM CDT) Neutrophil abs 6.47 1.50 - 6.50 K/cumm Imm gran abs 0.04 0.00 - 0.10 K/cumm [facility]) Lymphocyte abs 1.30 0.80 - 3.30 K/cumm [facility]) Monocyte abs 0.66 0.20 - 0.80 K/cumm [facility]) Eosinophil abs 0.02 0.00 - 0.50 K/cumm [facility]) Basophil abs 0.03 0.00 - 0.10 K/cumm [facility]) Neutrophil pct 75.9 % [facility] ([place]) Comment: Interpretive Data Percent cell count reference ranges are not reported, since discordance with absolute values may lead to misinterpretation of CBC data. Current Interpretive Data was last revised on 2017. Imm gran pct 0.5 % [facility] Comment: Interpretive Data Percent cell count reference ranges are not reported, since discordance with absolute values may lead to misinterpretation of CBC data. Current Interpretive Data was last revised on 2017. Lymphocyte pct 15.3 % [facility] ([place]) Comment: Interpretive Data Percent cell count reference ranges are not reported, since discordance with absolute values may lead to misinterpretation of CBC data. Current Interpretive Data was last revised on 2017. Monocyte pct 7.7 % [facility]) Comment: Interpretive Data Percent cell count reference ranges are not reported, since discordance with absolute values may lead to misinterpretation of CBC data. Current Interpretive Data was last revised on 2017. Eosinophil pct 0.2 % [facility] ([place]) Comment: Interpretive Data Percent cell count reference ranges are not reported, since discordance with absolute values may lead to misinterpretation of CBC data. Current Interpretive Data was last revised on 2017. Basophil pct 0.4 % [facility] Comment: Interpretive Data Percent cell count reference ranges are not reported, since discordance with absolute values may lead to misinterpretation of CBC data. Current Interpretive Data was last revised on 2017. Blood 11/04/2024 10:0 6 AM CDT 11/04/2024 10:50 AM CDT Guicho Thomas DO LAB BLOOD ORDERABLES Final Res ult Performing Organization Address [facility] Co de Phone Number MAGDA DUKES ([place]) 1 [facility] [place] [address] * (ABNORMAL) Hepatic function panel (11/04/2024 10:06 AM CDT) Bilirubin, total 0.8 0.1 - 1.2 mg/dL [...] Final Res ult Performing Organization Address [facility] Co de Phone Number MAGDA DUKES ([place]) 1 [facility] [place] [address] * (ABNORMAL) CBC with auto differential (11/04/2024 10:06 AM CDT) WBC 8.52 3.80 - 9.90 K/cumm Hgb [...] ([place]ST[place]) MCHC 35.6 32.3 - 35.7 g/dL [facility] RDW CV 12.6 11.1 - 14.9 % [facility] RDW SD 39.2 35.7 - 48.1 fL [facility]) NRBC abs 0.00 0.00 - 0.01 K/cumm [facility] ([place]) Blood 11/04/2024 10:0 6 AM CDT 11/04/2024 10:50 AM CDT us Guicho Thomas DO LAB BLOOD ORDERABLES Final Res ult [facility] ([place]) 1 [facility] Department [place] [address] * (ABNORMAL) Basic metabolic panel (11/04/2024 10:06 AM CDT) Sodium 135 135 - 145 mmol/L [facility] ([place]) Potassium, pl 3.0(C) 3.3 - 4.9 mmol/L [facility] ([place]) Comment:Critical Result call ed by [id number] at 2024-11-04 12:43:32. Result Read Back by William Lindo MD Chloride 88(L) 97 - 110 mmol/L [facility]) CO2 24 22 - 32 mmol/L [facility]) Anion gap 23(H) 2 - 15 mmol/L [facility] ([place]) BUN 7 6 - 25 mg/dL [facility] ([place]) Creatinine 0.63 0.60 - 1.10 mg/dL [facility] Glucose 104 70 - 199 mg/dL [facility] ([place]) Comment: Interpretive Data Fasting glucose [...] classification and Diagnosis of Diabetes Diabetes Care 2021; 46: S19-S40. Current interpretive data was last revised 2022. Calcium 10.5(H) 8.5 - 10.3 mg/dL [facility] ([place]) Blood 11/04/2024 10:0 6 AM CDT 11/04/2024 10:50 AM CDT us Guicho Thomas DO LAB BLOOD ORDERABLES Final Res ult Performing Organization Address [facility] de Phone Number MAGDA DUKES ([place]) 1 [facility] [place] [address] * Magnesium (11/04/2024 10:06 AM CDT) Magnesium 2.1 1.4 - 2.5 mg/dL [facility] ([place]) Blood 11/04/2024 10:0 6 AM CDT 11/04/2024 10:50 AM CDT us Guicho Thomas DO LAB BLOOD ORDERABLES Final Res ult Performing Organization Address [facility] de Phone Number MAGDA DUKES ([place]) 1 [facility] [place] [address] * Phosphorus (11/04/2024 10:06 AM CDT) Phosphorus, pl 3.1 2.3 - 4.5 mg/dL [facility]) Blood 11/04/2024 10:0 6 AM CDT 11/04/2024 10:50 AM CDT Guicho Thomas DO LAB BLOOD ORDERABLES Final Res ult Performing Organization Address City/[facility] Co de Phone Number MAGDA [facility] [place] [address] * Protime-INR (11/04/2024 10:06 AM CDT) PT 13.1 10.2 - 13.5 sec [facility] INR 1.16 0.90 - 1.20 [facility] Comment: Interpretive data Oral anticoagulant therapeutic ranges: [...] Final Res ult Performing Organization Address [facility]/ZIP Co de Phone Number MAGDA [facility] 1 [facility] [place] [address] * CRP (acute phase) (11/04/2024 10:06 AM CDT) CRP <3.0 <=10.0 mg/L [facility]DA [facility]) Blood 11/04/2024 10:0 6 AM CDT 11/04/2024 10:50 AM CDT Guicho Thomas DO LAB BLOOD ORDERABLES Final Res ult [facility] [place] [address] * Thyroid Function [place] (11/04/2024 10:06 AM CDT) TSH 0.45 0.30 - 4.20 mcIUnit/mL [facility] Blood 11/04/2024 10:0 6 AM CDT 11/04/2024 10:50 AM CDT Guicho Thomas DO LAB BLOOD ORDERABLES Final Res ult Performing Organization Address City/[facility] Co de Phone Number [facility]DA [facility] ([place] 1 [facility] [place] [address] * TSH (11/04/2024 10:06 AM CDT) Thyroid Stimulating Hormone 0.45 0.30 - 4.20 mcIUnit/mL [facility] ([place]) Blood 11/04/2024 10:0 6 AM CDT 11/04/2024 10:50 AM CDT Guicho Thomas DO LAB BLOOD ORDERABLES Final Res ult Performing Organization Address [facility] Co de Phone Number [facility] ([place]) 1 [facility] [place] [address] * (ABNORMAL) Lipid panel (11/04/2024 10:06 AM CDT) Cholesterol 132 30 - 199 mg/dL [facility] ([place]) Comment: Interpretive Data [...] revised on 2017. Triglycerides 86 <=149 mg/dL [facility] ([place]) Comment: Interpretive Data Ages < or [...] on 2017. HDL 37(L) >=40 mg/dL [facility] ([place]) Comment: Interpretive Data Ages < or [...] NCEP Expert Panel. Circulation 2004;110:227 3. Allan Haines al. SAVANA Cardiol. 2020 June 05;5(5):540-548. doi: 10.1001/jamacardio.2020.0013 Current Interpretive Data was last revised on 2023. Testing performed by: [facility], [place], [address] Non-HDL Cholesterol 95 mg/dL [facility] ([place]) Comment: Interpretive Data Ages < or = [...] last revised on 2017. Testing performed by: [facility], [place], [address] Chol/HDL ratio 4 [facility] Comment:Testing performed by : [place], [address] Blood 11/04/2024 10:0 6 AM CDT 11/04/2024 10:50 AM CDT Guicho Thomas DO LAB BLOOD ORDERABLES Final Res ult [facility] ([place]) 1 [facility] Department [place] [address] * Ferritin (11/04/2024 10:06 AM CDT) Ferritin 74 13 - 150 ng/mL [facility] Blood 11/04/2024 10:0 6 AM CDT 11/04/2024 10:50 AM CDT Guicho Thomas DO LAB BLOOD ORDERABLES Final Res ult [facility] ([place] 1 [facility] [place] [address] * (ABNORMAL) Vitamin B12 (11/04/2024 10:06 AM CDT) Vitamin B12 1,461(H) 230 - 1,250 pg/mL [facility]) Blood 11/04/2024 10:0 6 AM CDT 11/04/2024 10:50 AM CDT Guicho Thomas DO LAB BLOOD ORDERABLES Final Res ult MAGDA DUK[facility] ([place]) 1 [facility] [place] [address] * (ABNORMAL) Iron profile w/ IBC (11/04/2024 10:06 AM CDT) Iron 48 35 - 145 mcg/dL [facility]) TIBC 329 250 - 400 mcg/dL [facility]) Transferrin saturation 15(L) 20 - 50 % [facility] ([place]) Blood 11/04/2024 10:0 6 AM CDT 11/04/2024 10:50 AM CDT Guicho Thomas DO LAB BLOOD ORDERABLES Final Res ult Performing Organization Address City/[facility]/ZIP Co de Phone Number MAGDA DUKES ([place]) 1 [facility] [place] [address] * Folate (11/04/2024 10:06 AM CDT) Folic acid 16.6 >=5.0 ng/mL [facility] ([place]) Blood 11/04/2024 10:0 6 AM CDT 11/04/2024 10:50 AM CDT Guicho Thomas DO LAB BLOOD ORDERABLES Final Res ult [facility] D[facility] ([place]) 1 [facility] [place] [address] documented in this encounter Visit Diagnoses Diagnosis Abdominal pain Abdominal pain, unspecified site Gastroesophageal reflux disease, unspecified whether esophagitis present Nausea and vomiting, unspecified vomiting type Weight loss Loss of weight Nausea and vomiting Nausea with vomiting Gastroesophageal reflux disease Esophageal reflux Nausea and vomiting, unspecified vomiting type Gastroesophageal reflux disease, unspecified whether esophagitis present documented in this encounter Care Teams Staffing Operations Manager Relationship Specialty Start Date End Date Jesús Yates MD PCP - General Family Medicine 12/11/19 documented as of this encounter
--- NOTE | 2024-11-04 13:30 | ECG_ITS ---
Test Date: 2024-11-04 13:32:51 Measurements Intervals Java Rate: 104 P: 57 [place]: 150 QRS: -44 QRSD: 89 T: 3 QT: 343 QTc: 453 Interpretive Statements SINUS TACHYCARDIA MARKED LEFT AXIS DEVIATION [QRS AXIS < -30] POSSIBLE RIGHT VENTRICULAR CONDUCTION DELAY [RSR (QR) IN V1/V2] NONSPECIFIC ST & T-WAVE ABNORMALITY Compared to ECG 10/23/2024 16:20:37 Sinus rhythm no longer present T-wave abnormality still present Electronically Signed On 11-04-2024 14:46:02 CDT by Kevin Vigil M.D.
--- OUTSIDE RECORDS SUMMARY | 2024-11-04 13:32 | XMS_ITS | Clinical Summary ---
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 Active ELURYNG 0.12-0.015 MG/24HR RING Place 1 each vaginally every 30 (thirty) days. 05/08/19 23 Active ondansetron 4 MG disintegrating tablet Take 4 mg by mouth 3 (three) times daily as needed. 03/28/19 22 025 Discontin ued(Error ) omeprazole 40 MG capsule Take 40 mg by mouth nightly. 025 Discontin ued(Error ) sucralfate 1 G tablet Take 1 g by mouth 4 (four) times daily before meals and nightly. 025 Discontin ued(Error ) Active Problems Problem Noted Date Diagnosed Date Intractable nausea and vomiting 10/15/2024 Hypokalemia 04/29/2021 Encounters Date Type Department Care Team Description 10/21/2024 Telephone [facility] Family & Internal Medicine [address] [phone] Jordyn Michel FNP TCM 10/19/2024 2:14 PM CDT - 10/19/2024 4:33 PM CDT Emergency [facility] [place] [address] Kevin Conklin MD Abdominal Pain Discharge Disposition: Home or Self Care (Routine Discharge) 10/19/2024 Travel 10/15/2024 6:51 AM CDT - 10/17/2024 11:00 AM CDT Hospital Encounter [facility] [place] [address] Coy Doll MD Suresh, Aditya Krishna, MD Vomiting Discharge Disposition: Home or Self Care (Routine Discharge) 10/15/2024 Travel from Last 3 Months Family History Medical History Relation Comments Colon [...] = 0.6 oz pur e alcohol) 0 B1300 Health Literacy Answer Date Recor ded How often do you need to hav e someone help you when you read instructions, pamphlets, or other written material from your doctor or pharmacy? Never 10/15/2024 [facility] Utilities Answer Date Recorded In the past 12 months has [facility], gas, oil, or water [employer] threatened to shut off services in your home? No 10/15/2024 Humiliation, Afraid, Rape, and Kick questionnair e Answer Date Recorded Within the last year, have y ou been afraid of your partner or ex-partner? No 10/15/2024 Within the last year, have y ou been humiliated or emotionally abused in other ways by your partner or ex-partner? No Within the last year, have y ou been kicked, hit, slapped, or otherwise physically hurt by your partner or ex-partner? No 10/15/2024 Within the last year, have y ou been raped or forced to have any kind of sexual activity by your partner or ex-partner? No 10/15/2024 Social Connection and Isolat ion Panel [NHANES] Answer Date Recorded In a typical week, how many times do you talk on the phone with family, friends, or neighbors? More than three times a week 10/15/2024 How often do you get togethe r with friends or relatives? More than three times a week 10/15/2024 How often do you attend chur ch or hoahaoism services? Never 10/15/2024 Do you belong to any clubs o r organizations such as anabaptism groups, unions, fraternal or athletic groups, or school groups? No 10/15/2024 How often do you attend meet ings of the clubs or organizations you belong to? Never 10/15/2024 Are you , , di vorced, , never , or living with a partner? Never 10/15/2024 AUDIT-C Answer Date Recorded Q1: How often do you have a drink containing alcohol? Never 10/15/2024 Q2: How many drinks containi ng alcohol do you have on a typical day when you are drinking? Patient does not drink Q3: How often do you have si x or more drinks on one occasion? Never 10/15/2024 Overall Financial Resource Strain (CARDIA) Answe r Date Recorded How hard is it for you to pa y for the very basics like food, housing, medical care, and heating? Not hard at all 10/15/2024 PHQ-2 Answer Date Recorded Patient Health Questionnaire-2 Score 0 10/15/2024 [facility] Questionnaire Answer Date Recorded Do you feel stress - tense, restless, nervous, or anxious, or unable to sleep at night because your mind is troubled all the time - these days? Not at all 10/15/2024 Exercise Vital Sign Answer Date Recorde d On average, how many days pe r week do you engage in moderate to strenuous exercise (like a brisk walk)? 4 days 10/15/2024 On average, how many minutes do you engage in exercise at this level? 40 min 10/15/2024 Hunger Vital Sign Answer Date Recorded Within the past 12 months, y ou worried that your food would run out before you got the money to buy more. Never true 10/16/19 25 Within the past 12 months, t he food you bought just didn't last and you didn't have money to get more. Never true 10/15/2024 PRAPARE - Transportation Answer Date Re corded In the past 12 months, has l ack of transportation kept you from medical appointments or from getting medications? No 10/06 In the past 12 months, has l ack of transportation kept you from meetings, work, or from getting things needed for daily living? No 10/15/2024 Housing Stability Vital Sign Answer Tj e Recorded In the last 12 months, was t here a time when you were not able to pay the mortgage or rent on time? No 10/15/2024 In the past 12 months, how m any times have you moved where you were living? 0 10/15/2024 At any time in the past 12 m [facility], were you homeless or living in a usp (including now)? No 10/15/2024 Comments No Sex and Gender Information Value Date Recorded Sex Assigned at Female 10/15/2024 7:20 AM CDT Legal Sex Female 6:22 PM CDT Gender Identity Not on file Sexual Orientation Not on file Last Filed Vital Signs Vital Sign Reading Time Taken Comments Blood Pressure 138/103 10/19/2024 4:01 PM CDT Pulse 89 10/19/2024 4:01 PM CDT Temperature 36.3 C (97.3 F) 10/19/2024 2:08 PM CDT Respiratory Rate 21 10/19/2024 4:01 PM CDT Oxygen Saturation 98% 10/19/2024 4:01 PM CDT Inhaled Oxygen Concentration - - Weight 54.6 kg (120 lb 5.9 oz) 10/19/2024 2:08 P M CDT Height 158.8 cm (5' 2.5) 10/19/2024 2:08 PM CDT Body Mass Index 21.67 10/19/2024 2:08 PM CDT Plan of Treatment Health Maintenance Due [...] [birth year] Meningococcal Vaccine Completed 12/01/2015, 009 PHQ-2 (Physician [place]) Completed 10/15/2024 Meningococcal B Vaccine Aged Out No l onger eligible based on patient's age to complete this topic Pneumococcal Vaccine: Pediatrics (0 to 5 Years) and At-Risk Patients (6 to 49 Years) Aged Out No longer eligible based on patient's age to complete this topic RSV Immunizations Under 20 Months Aged Out No longer eligible based on patient's age to complete this topic Procedures Procedure Name Priority Date/Time Associated Diagnosis Comments ECG 12-LEAD Routine 10/19/2024 2:44 PM CDT XR CHEST PORTABLE STAT 10/19/2024 2:3 7 PM CDT POCT URINE (BACK OFFICE) STAT 10/19/2024 2:33 PM CDT LIPASE STAT 10/19/2024 2:17 PM CDT HC URINALYSIS AUTO W/O MICRO STAT 10/19/2024 2:17 PM CDT TROPONIN, QUANT STAT 10/19/2024 2:17 PM CDT COMPREHENSIVE METABOLIC PANEL STAT 10/19/2024 2:17 PM CDT CBC W/DIFF AUTOMATED STAT 10/19/2024 2:17 PM CDT CBC, AUTO, NO DIFF Routine 10/17/2024 4: 23 AM CDT BASIC METABOLIC PANEL Routine 10/17/2024 4:23 AM CDT PHOSPHORUS, INORGANIC PHOSPHATE Routine 10/17/2024 4:23 AM CDT CHORIONIC GONADOTROPIN HCG QL Routine 10/16/2024 11:14 AM CDT PHOSPHORUS, INORGANIC PHOSPHATE Routine 10/16/2024 4:40 AM CDT MAGNESIUM Routine 10/16/2024 4:40 AM CDT BASIC METABOLIC PANEL Routine 10/16/2024 4:40 AM CDT CBC W/DIFF AUTOMATED Routine 10/16/2024 4:40 AM CDT PHOSPHORUS, INORGANIC PHOSPHATE Routine 10/15/2024 3:24 PM CDT BASIC METABOLIC PANEL TIMED 10/15/2024 3:24 PM CDT ECG 12-LEAD Routine 10/15/2024 2:23 PM CDT DRUG SCREEN RAPID STAT 10/15/2024 8:5 7 AM CDT URINALYSIS, AUTO, COMPLETE STAT 10/15/2024 8:[address] ABD+PEL W CON STAT 10/15/2024 8:40 AM CDT PROCALCITONIN (PCT) Routine 10/15/2024 7 :11 AM CDT PHOSPHORUS, INORGANIC PHOSPHATE Routine 10/15/2024 7:11 AM CDT MAGNESIUM Routine 10/15/2024 7:11 AM CDT COMPREHENSIVE METABOLIC PANEL STAT 10/15/2024 7:11 AM CDT CBC W/DIFF AUTOMATED STAT 10/15/2024 7:11 AM CDT from Last 3 Months Results * ECG 12 lead (10/19/2024 2:44 PM CDT) Only the most recent of2 resultswithin the time period is included. 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1995 Requested By: NICOLE QUEVEDO Order Number: [id number] Reading MD: Gayle Cummins Measurements Intervals [place] Rate: 82 P: 73 TX: 151 QRS: -76 QRSD: 86 T: 34 QT: 356 QTc: 416 Interpretive Statements SINUS RHYTHM WITH SINUS ARRHYTHMIA POSSIBLE RIGHT VENTRICULAR CONDUCTION DELAY [RSR (QR) IN V1/V2] LEFT ANTERIOR FASCICULAR BLOCK [QRS AXIS <= -45, QR IN I, RS IN II] Compared to ECG 10/15/2024 14:23:05 Left anterior fascicular block now present Left-axis deviation no longer present Incomplete right bundle-branch block no longer present Procedure Note Gayle Cummins MD - 10/19/[address] Test Date: 2024-10-19 Pat Name: [facility] Department: 41 Room: EXAM25 Gender: Female 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: [id number] : 1995 Requested By: NICOLE QUEVEDO Order Number: [id number] Reading MD: Gayle Cmumins Measurements Intervals [place] Rate: 82 P: 73 TX: 151 QRS: -76 QRSD: 86 T: 34 QT: 356 QTc: 416 Interpretive Statements SINUS RHYTHM WITH SINUS ARRHYTHMIA POSSIBLE RIGHT VENTRICULAR CONDUCTION DELAY [RSR (QR) IN V1/V2] LEFT ANTERIOR FASCICULAR BLOCK [QRS AXIS <= -45, QR IN I, RS IN II] Compared to ECG 10/15/2024 14:23:05 Left anterior fascicular block now present Left-axis deviation no longer present Incomplete right bundle-branch block no longer present Nicole العراقي ECG ORDERABLES Final Result [facility] ([facility]) RAD * XR CHEST PORTABLE (10/19/2024 2:37 PM CDT) Anatomical Region Laterality Modality Chest Radiographic Geovanna ging 10/19/2024 2:41 PM CDT Impressions 10/19/2024 2:48 PM CDT IMPRESSION: No acute pulmonary findings. Referred By: Interpreted By: Sarkis Mendez MD, 10/19/2024 2:41 PM Narrative 10/19/2024 2:48 PM CDT [place] [address] Examination: XR CHEST PORTABLE Exam time: 10/19/2024 2:28 PM Indication: Dizziness Comparison: None Findings: Upright AP view of the chest was obtained. The heart size is normal. No vascular congestion. No airspace consolidation, pleural effusion, or pneumothorax. Procedure Note Sarkis Mendez MD - 10/19/[address] [address] Examination: XR CHEST PORTABLE Exam time: 10/19/2024 2:28 PM Indication: Dizziness Comparison: None Findings: Upright AP view of the chest was obtained. The heart size isnormal. No vascular congestion. No airspace consolidation, pleuraleffusion, or pneumothorax. IMPRESSION: No acute pulmonary findings. Referred By: Interpreted By: Sarkis Mendez MD, 10/19/2024 2:41 PM us Nicole العراقي GENERAL IMAGING Final Result * POCT urine (10/19/2024 2:33 PM CDT) URINE HCG TEST NEGATIVE Internal Control: VALID 10/19/2024 2:33 PM CDT us Nicole العراقي POINT OF CARE TEST ORDERABLE S Final Result * (ABNORMAL) URINALYSIS (10/19/2024 2:17 PM CDT) SPECIMEN TYPE URINE CLEAN CATCH 10/19/2024 2:33 PM CDT [facility] COLOR (U) YELLOW 10/19/2024 2:52 PM CDT [facility] TRANSPARENCY TURBID 10/19/2024 2:52 PM CDT [facility] SPECIFIC GRAVITY (U) 1.025 1.001 - 1.030 10/19/2024 2:52 PM CDT [facility] U PH 6.0 5.0 - 9.0 10/19/2024 2:52 PM CDT [facility] LEUKOCYTES (U) 75(A) NEGATIVE 10/19/2024 2:52 PM CDT [facility] NITRITES NEGATIVE NEGATIVE 10/19/2024 2:52 PM CDT [facility] PROTEIN RANDOM (U) 50(H) <30 MG/DL 10/19/2024 2:52 PM CDT [facility] GLUCOSE (U) NORMAL NORMAL MG/DL 10/19/2024 2:52 PM CDT [facility] KETONES MG/DL (U) NEGATIVE NEGATIVE MG/DL 10/19/2024 2:52 PM CDT [facility] UROBILINOGEN 2.0(A) NORMAL MG/DL 10/19/2024 2:52 PM CDT [facility] BILIRUBIN (U) NEGATIVE NEGATIVE MG/DL 10/19/2024 2:52 PM CDT [facility] BLOOD (U) 3+(A) NEGATIVE 10/19/2024 2:52 PM CDT [facility] MUCUS MANY /LPF 10/19/2024 2:52 PM CDT [facility] WBC/HPF 11(H) <6 /HPF 10/19/2024 2:52 PM CDT [facility] RBC/HPF 18(H) <6 /HPF 10/19/2024 2:52 PM CDT [facility] CA OXALATE CRYSTALS RARE /HPF 10/19/2024 2:52 PM CDT [facility] SQUAMOUS EPITHELIALS MANY /HPF 10/19/2024 2:52 PM CDT [facility] URINE SPECIMEN OBTAINED BY CLEAN CATCH PROCEDURE / Unknown 10/19/2024 2:17 PM CDT us Nicole العراقي URINE ORDERABLES Final Resul t [facility] [address] [place] [address], [place] [phone] * (ABNORMAL) COMPREHENSIVE METABOLIC PANEL (10/19/2024 2:17 PM CDT) Only the most recent of2 resultswithin the time period is included. GLUCOSE 115(H) 70 - 99 MG/DL 10/19/2024 3:18 PM CDT [facility] BUN 9 7 - 18 MG/DL 10/19/2024 3:18 PM CDT [facility] CREATININE S/P/B 0.90 0.55 - 1.02 MG/DL 10/19/2024 3:18 PM CDT [facility] SODIUM S/P/B 133(L) 136 - 145 MMOL/L 10/19/2024 3:18 PM CDT [facility] POTASSIUM S/P/B 3.8 3.5 - 5.1 MMOL/L 10/19/2024 3:18 PM CDT [facility] CHLORIDE S/P/B 101 97 - 115 MMOL/L 10/19/2024 3:18 PM CDT [facility] CO2 25.7 21 - 32 MMOL/L 10/19/2024 3:18 PM CDT [facility] CALCIUM S/P/B 9.9 8.5 - 10.1 MG/DL 10/19/2024 3:18 PM CDT [facility] BILIRUBIN TOTAL S/P/B 0.9 0.2 - 1.2 MG/DL 10/19/2024 3:18 PM CDT [facility] Comment: THIS ASSAY IS NOT RECOMMENDED FOR PATIENTS UNDERGOING TREATMENT WITH ELTROMBOPAG DUE TO THE POTENTIAL FOR FALSELY ELEVATED RESULTS. TOTAL PROTEIN S/P/B 7.9 6.4 - 8.2 G/DL 10/19/2024 3:18 PM CDT [facility] ALBUMIN S/P/B 4.6 3.4 - 5.0 G/DL 10/19/2024 3:18 PM CDT [facility] AST 28 15 - 37 U/L 10/19/2024 3:18 PM CDT [facility] ALT 175(H) 14 - 55 U/L 10/19/2024 3:18 PM CDT [facility] ALKALINE PHOSPHATASE S/P/B 78 50 - 136 U/L 10/19/2024 3:18 PM CDT [facility] ANION GAP 6.3 2 - 10 MMOL/L 10/19/2024 3:18 PM CDT [facility] BUN CREATININE RATIO 9.9 6 - 26 10/19/2024 3:18 PM CDT [facility] A/G RATIO 1.4 1.0 - 2.0 RATIO 10/19/2024 3:18 PM CDT [facility] GFR ESTIMATE 90(L) >90 ML/MIN/1.7 3 M2 10/19/2024 3:18 PM CDT [facility] Comment: NOTE: eGFR is not calculated for patients <18 years of age or gender unknown. This is an estimated GFR calculation using the new CKD EPI creatinine equation without race and so does not require a correction factor for race. This estimated GFR should not be used for calculating drug doses. 10/19/2024 2:17 PM CDT Nicole العراقي LABORATORY Final Result [facility] [address] [place] [address], [place] [phone] * (ABNORMAL) CBC W/DIFF AUTOMATED (10/19/2024 2:17 PM CDT) Only the most recent of3 resultswithin the time period is included. WBC 10.43 4.5 - 11.0 x10'3/uL 10/19/2024 2:40 PM CDT [facility] RBC 4.97 4.20 - 5.40 x10'6/uL 10/19/2024 2:40 PM CDT [facility] HGB 15.1 12.0 - 16.0 G/DL 10/19/2024 2:40 PM CDT [facility] HCT 43.3 38.0 - 48.0 % 10/19/2024 2:40 PM CDT [facility] MCV 87.1 81.0 - 99.0 FL 10/19/2024 2:40 PM CDT [facility] MCH 30.4 27.0 - 31.0 PG 10/19/2024 2:40 PM CDT [facility] MCHC 34.9 32.0 - 36.0 G/DL 10/19/2024 2:40 PM CDT [facility] RDW 11.9 11.5 - 14.5 % 10/19/2024 2:40 PM CDT [facility] PLT 287 130 - 400 x10'3/uL 10/19/2024 2:40 PM CDT [facility] MPV 12.2 9.3 - 12.2 FL 10/19/2024 2:40 PM CDT [facility] DIFFERENTIAL TYPE AUTOMATED DIFFERENTIAL 10/19/2024 2:40 PM CDT [facility] NEUTROPHILS % 69.6 % 10/19/2024 2:40 PM CDT [facility] LYMPHOCYTES % 19.8 % 10/19/2024 2:40 PM CDT [facility] MONOCYTES % 8.5 % 10/19/2024 2:40 PM CDT [facility] EOSINOPHILS 1.3 % 10/19/2024 2:40 PM CDT [facility] BASOPHILS 0.5 % 10/19/2024 2:40 PM CDT [facility] IMMATURE GRANS % 0.3 % 10/20/19 2:40 PM CDT [facility] ABS. NEUTROPHILS 7.25 1.80 - 7.70 x10'3/uL 10/19/2024 2:40 PM CDT [facility] ABS. LYMPHOCYTES 2.07 1.00 - 4.80 x10'3/uL 10/19/2024 2:40 PM CDT [facility] ABS. MONOCYTES 0.89(H) 0.24 - 0.86 x10'3/uL 10/19/2024 2:40 PM CDT [facility] ABS. EOSINOPHILS 0.14 0.04 - 0.36 x10'3/uL 10/19/2024 2:40 PM CDT [facility] ABS. BASOPHILS 0.05 0.01 - 0.08 x10'3/uL 10/19/2024 2:40 PM CDT [facility] ABS. IMMATURE GRANULOCYTES 0.03 0.00 - 0.49 x10'3/uL 10/19/2024 2:40 PM CDT [facility] 10/19/2024 2:17 PM CDT Nicole العراقي LABORATORY Final Result Performing Organization Address City/State/[facility] Co de Phone Number [facility] [address] [place] [address], [place] [phone] * TROPONIN, QUANT (10/19/2024 2:17 PM CDT) TROPONIN I HIGH SENSITIVITY <3 <54 ng/L 10/19/2024 3:18 PM CDT [facility] Comment: HIGH DOSES OF BIOTIN, TROPONIN-SPECIFIC AUTOANTIBODIES, AND ANTIBODY THERAPY CONTAINING HAMA MAY INTERFERE WITH THIS TEST RESULT. CORRELATION TO CLINICAL HISTORY AND PRESENTATION RECOMMENDED. 10/19/2024 2:17 PM CDT Nicole العراقي LABORATORY Final Result [facility] [address] [place] [address], [place] [phone] * LIPASE (10/19/2024 2:17 PM CDT) Pathologist [facility] LIPASE 20 13 - 75 UNITS/L 10/19/2024 3:18 PM CDT [facility] 10/19/2024 2:17 PM CDT Nicole العراقي LABORATORY Final Result Performing Organization Address City/[facility]/ZIP Co de Phone Number [facility] [address] [place] [address], [place] [phone] * (ABNORMAL) BASIC METABOLIC PANEL (10/17/2024 4:23 AM CDT) Only the most recent of3 resultswithin the time period is included. GLUCOSE 124(H) 70 - 99 MG/DL 10/17/2024 5:32 AM CDT [facility] BUN 5(L) 7 - 18 MG/DL 10/17/2024 5:32 AM CDT [facility] CREATININE S/P/B 0.57 0.55 - 1.02 MG/DL 10/17/2024 5:32 AM CDT [facility] SODIUM S/P/B 135(L) 136 - 145 MMOL/L 10/17/2024 5:32 AM CDT [facility] POTASSIUM S/P/B 3.4(L) 3.5 - 5.1 MMOL/L 10/17/2024 5:32 AM CDT [facility] CHLORIDE S/P/B 103 97 - 115 MMOL/L 10/17/2024 5:32 AM CDT [facility] CO2 27.2 21 - 32 MMOL/L 10/17/2024 5:32 AM CDT [facility] CALCIUM S/P/B 9.4 8.5 - 10.1 MG/DL 10/17/2024 5:32 AM CDT [facility] ANION GAP 4.8 2 - 10 MMOL/L 10/17/2024 5:32 AM CDT [facility] BUN CREATININE RATIO 8.8 6 - 26 10/17/2024 5:32 AM CDT [facility] GFR ESTIMATE >90 >90 ML/MIN/1.7 3 M2 10/17/2024 5:32 AM CDT [facility] Comment: NOTE: eGFR is not calculated for patients <18 years of age or gender unknown. This is an estimated GFR calculation using the new CKD EPI creatinine equation without race and so does not require a correction factor for race. This estimated GFR should not be used for calculating drug doses. 10/17/2024 4:23 AM CDT Rick Crena MD LABORATORY Final R esult [facility] [address] [place] [address], [place] [phone] * (ABNORMAL) CBC, AUTO, NO DIFF (10/17/2024 4:23 AM CDT) WBC 9.21 4.5 - 11.0 x10'3/uL 10/17/2024 6:02 AM CDT [facility] RBC 4.70 4.20 - 5.40 x10'6/uL 10/17/2024 6:02 AM CDT [facility] HGB 14.6 12.0 - 16.0 G/DL 10/17/2024 6:02 AM CDT [facility] HCT 41.0 38.0 - 48.0 % 10/17/2024 6:02 AM CDT [facility] MCV 87.2 81.0 - 99.0 FL 10/17/2024 6:02 AM CDT [facility] MCH 31.1(H) 27.0 - 31.0 PG 10/17/2024 6:02 AM CDT [facility] MCHC 35.6 32.0 - 36.0 G/DL 10/17/2024 6:02 AM CDT [facility] RDW 11.7 11.5 - 14.5 % 10/17/2024 6:02 AM CDT [facility] PLT 276 130 - 400 x10'3/uL 10/17/2024 6:02 AM CDT [facility] MPV 12.6(H) 9.3 - 12.2 FL 10/17/2024 6:02 AM CDT [facility] 10/17/2024 4:23 AM CDT Rick Cerna MD LABORATORY Final R esult [facility] [address] [place] [address], [place] [phone] * PHOSPHORUS, INORGANIC PHOSPHATE (10/17/2024 4:23 AM CDT) Only the most recent of4 resultswithin the time period is included. PHOSPHORUS 2.5 2.5 - 4.9 MG/DL 10/17/2024 5:32 AM CDT [facility] 10/17/2024 4:23 AM CDT Rick Cerna MD LABORATORY Final R esult Performing Organization Address City/[facility]/ZIP Co de Phone Number [facility] [address] [place] [address], [place] [phone] * PREG TEST SERUM (HCG QUALITATIVE) (10/16/2024 11:14 AM CDT) PREG SCREEN-SERUM NEGATIVE 10/16/2024 11:37 AM CDT [facility] 10/16/2024 11:1 4 AM CDT Rick Cerna MD LABORATORY Final R esult Performing Organization Address City/[facility]/ZIP Co de Phone Number [facility] [address] [place] [address], [place] [phone] * MAGNESIUM (10/16/2024 4:40 AM CDT) Only the most recent of2 resultswithin the time period is included. MAGNESIUM 2.2 1.8 - 2.4 MG/DL 10/16/2024 5:50 AM CDT [facility] 10/16/2024 4:40 AM CDT Mere Mckeon NP LABORATORY Final Result [facility] [address] [place] [address], [place] [phone] * (ABNORMAL) DRUG SCREEN RAPID (10/15/2024 8:57 AM CDT) AMPHETAMINE (U) NEGATIVE NEGATIVE 12:39 PM CDT [facility] BARBITURATES SCREEN (U) NEGATIVE NEGATIVE 10/15/2024 12:39 PM CDT [facility] BENZODIAZEPINES SCREEN (U) NEGATIVE NEGATIVE 10/15/2024 12:39 PM CDT [facility] CANNABINOIDS SCREEN (U) POSITIVE(A) NEGATIVE 10/15/2024 12:39 PM CDT [facility] COCAINE METABOLITES (U) NEGATIVE NEGATIVE 10/15/2024 12:39 PM CDT [facility] METHADONE (U) NEGATIVE NEGATIVE 10/15/2024 12:39 PM CDT [facility] OPIATE SCREEN (U) NEGATIVE NEGATIVE 025 12:39 PM CDT [facility] PHENCYCLIDINE PCP (U) NEGATIVE NEGATIVE 10/15/2024 12:39 PM CDT [facility] Comment: NOTE: RESULTS OF THIS DRUG SCREEN SHOULD BE USED FOR MEDICAL PURPOSES ONLY AND NOT FOR LEGAL OR EMPLOYMENT PURPOSES. POSITIVE RESULTS ARE NOT CONFIRMED. MEDICATIONS CONTAINING EPHEDRINE MAY CAUSE FALSE POSITIVE AMPHETAMINE CALL [phone], LAB, TO REQUEST CONFIRMATION TESTING. IF CREATININE IS <40 mg/dL. RECOLLECTION IS SUGGESTED. AMPHETAMINE- 500 NG/ML BARBITURATE- 200 NG/ML BENZODIAZEPINES- 200 NG/ML THC- 50 NG/ML COCAINE- 150 NG/ML METHADONE- 300 NG/ML OPIATE- 300 MG/ML PCP- 25 NG/ML CREATININE (U) 80.4 28 - 217 MG/DL 10/15/2024 12:39 PM CDT [facility] URINE SPECIMEN / Unknown 10/15/2024 8:57 AM CDT us Mere Mckeon NP URINE ORDERABLES Final Result [facility] [address] [place] [address], [place] [phone] * (ABNORMAL) Urinalysis, Auto, Complete (10/15/2024 8:57 AM CDT) SPECIMEN TYPE URINE CLEAN CATCH 10/15/2024 8:52 AM [facility] COLOR (U) COLORLESS 10/15/2024 9:09 AM T [facility] TRANSPARENCY CLEAR 10/15/2024 9:09 AM [facility] SPECIFIC GRAVITY (U) 1.048(H) 1.001 - 1.030 10/15/2024 9:09 AM T [facility] U PH 7.0 5.0 - 9.0 10/15/2024 9:09 AM [facility] LEUKOCYTES (U) NEGATIVE NEGATIVE 10/15/2024 9:09 AM [facility] NITRITES NEGATIVE NEGATIVE 10/15/2024 9:09 AM [facility] PROTEIN RANDOM (U) NEGATIVE <30 MG/DL 10/15/2024 9:09 AM [facility] GLUCOSE (U) NORMAL NORMAL MG/DL 10/15/2024 9:09 AM [facility] KETONES MG/DL (U) 80(A) NEGATIVE MG/DL 10/15/2024 9:09 AM [facility] UROBILINOGEN NORMAL NORMAL MG/DL 10/15/2024 9:09 AM [facility] BILIRUBIN (U) NEGATIVE NEGATIVE MG/DL 10/15/2024 9:09 AM [facility] BLOOD (U) 3+(A) NEGATIVE 10/15/2024 9:09 AM T [facility] MUCUS RARE /LPF 10/15/2024 9:09 AM [facility] WBC/HPF 1 <6 /HPF 10/15/2024 9:09 AM [facility] RBC/HPF 9(H) <6 /HPF 10/15/2024 9:09 AM CDT [facility] SQUAMOUS EPITHELIALS RARE /HPF 10/15/2024 9:09 AM CDT [facility] URINE SPECIMEN OBTAINED BY CLEAN CATCH PROCEDURE / Unknown 10/15/2024 8:57 AM CDT Coy Doll MD URINE ORDERABLES Alina ren Result [facility] [address] [place] [address], [place] [phone] * CT ABD+PEL W CON (10/15/2024 8:40 AM CDT) Anatomical Region Laterality Modality Abdomen Computed Tomogra phy 10/15/2024 8:49 AM CDT Impressions 10/15/2024 8:57 AM CDT =====IMPRESSION:===== No acute abnormality is demonstrated. Ordered By: COY DOLL Interpreted By: Coy Vazquez MD, 10/15/2024 8:49 AM Narrative 10/15/2024 8:57 AM CDT [facility] [address] [place], [place] [address] EXAMINATION: CT Abdomen and Pelvis with contrast EXAM DATE/TIME: 10/15/2024 8:35 AM REASON FOR EXAM: Abdominal pain. COMPARISON: 04/29/2021 TECHNIQUE: Computed tomography of the abdomen and pelvis was performed after administration of intravenous contrast, 100 mL Isovue 370. Automated exposure control was utilized for dose reduction. FINDINGS: Abdomen: Chronic focal fatty infiltration of the left hepatic lobe, unchanged. The gallbladder, spleen, pancreas, kidneys, adrenal glands, aorta and IVC are unremarkable. Large and small bowel are unremarkable. Normal appendix visualized. No suspicious adenopathy. Pelvis: Bladder, uterus, ovaries and rectum are unremarkable. No significant free pelvic fluid or adenopathy. Other findings: The visualized lung bases are clear. No acute fracture or destructive bone lesion. Procedure Note Coy Vazquez MD - 10/15/2024 [facility] [address] [place], [place] [address] EXAMINATION: CT Abdomen and Pelvis with contrast EXAM DATE/TIME: 10/15/2024 8:35 AM REASON FOR EXAM: Abdominal pain. COMPARISON: 04/29/2021 TECHNIQUE: Computed tomography of the abdomen and pelvis was performedafter administration of intravenous contrast, 100 mL Isovue 370. Automatedexposure control was utilized for dose reduction. FINDINGS: Abdomen: Chronic focal fatty infiltration of the left hepatic lobe,unchanged. The gallbladder, spleen, pancreas, kidneys, adrenal glands,aorta and IVC are unremarkable. Large and small bowel are unremarkable.Normal appendix visualized. No suspicious adenopathy. Pelvis: Bladder, uterus, ovaries and rectum are unremarkable. Nosignificant free pelvic fluid or adenopathy. Other findings: The visualized lung bases are clear. No acute fracture ordestructive bone lesion. =====IMPRESSION:===== No acute abnormality is demonstrated. Ordered By: COY DOLL Interpreted By: Coy Vazquez MD, 10/15/2024 8:49 AM Coy Doll MD CT Final Result * PROCALCITONIN (PCT) (10/15/2024 7:11 AM CDT) PROCALCITONIN <0.05 0.00 - 0.49 NG/ML 10/15/2024 2:37 PM CDT [facility] 10/15/2024 7:11 AM CDT Mere Mckeon NP LABORATORY Final Result [facility] [address] [place] [address], [place] [phone] from Last 3 Months Insurance [employer] Advance Directives * Full Code (Latest Code Status on File) Date Activated Date Inactivated Comments 10/15/2024 11:57 AM 10/17/2024 1:13 PM * Full Code Date Activated Date Inactivated Comments 04/29/2021 6:21 PM 04/30/2021 5:56 PM Care Teams Fence Installer Helper Relationship Specialty Start Date End Date Jordyn Michel FNP [address] [place] [id number] PCP - General Nurse Practitioner Family 04/30/21
--- OUTSIDE RECORDS SUMMARY | 2024-11-04 13:32 | XMS_ITS | Encounter Summary ---
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 Gender Identity Not on file Sexual Orientation Not on file documented as of this encounter Functional Status documented as of this encounter Miscellaneous Notes * Telephone Encounter - August Walker MA - 11/04/2024 12:52 PM CDT Pt notified about potassium levels, pt will come in nxt wk for more lab work documented in this encounter Plan of Treatment Upcoming Encounters Date Type Department Care Team (Latest Contact Info) Description 11/25/2024 9:30 AM CDT Hospital Encounter [address] [address] Guicho Thomas, DO [address] [facility] [address] [place] [address] 11/25/2024 9:30 AM CDT - 11/25/2024 9:51 AM CDT Surgery [address] [address] Guicho Thomas, [address] [facility] [address] [place] [address] ESOPHAGOGASTRODUODENOSCOPY Scheduled Procedures Name Priority Associated Diagnoses Date/Ti me ESOPHAGOGASTRODUODENOSCOPY Nausea and vomiting, unspecified vomiting type Gastroesophageal reflux disease, unspecified whether esophagitis present 11/25/2024 9:30 AM CDT documented as of this encounter Visit Diagnoses Not on filedocumented in this encounter Care Teams Watch Assembler Relationship Specialty Start Date End Date Jesús Yates MD PCP - General Family Medicine 12/11/19 documented as of this encounter
--- OUTSIDE RECORDS SUMMARY | 2024-11-04 13:32 | XMS_ITS | Clinical Summary ---
Author Organization [facility] Address [address] [place] [address] Phone Care Team Providers Care Feeder Tender Name Role Phone Provider, None Primary Care [...] on file Legal Sex Female 10:42 PM SHINGLES ROOFER HELPER Gender Identity Not on file Sexual Orientation Not on file Occupation Industry Job Start Date Job End Date Unemployed Not on file Not on file Not on file Last Filed Vital Signs Vital Sign Reading Time Taken Comments Blood Pressure 111/67 04/12/2021 2:15 PM SHINGLES ROOFER HELPER Pulse 82 04/12/2021 2:44 PM SHINGLES ROOFER HELPER Temperature 36.5 C (97.7 F) 04/12/2021 9:07 AM SHINGLES ROOFER HELPER Respiratory Rate 20 04/12/2021 2:44 PM SHINGLES ROOFER HELPER Oxygen Saturation 100% 04/12/2021 2:44 PM SHINGLES ROOFER HELPER Inhaled Oxygen Concentration - - Weight 51.3 kg (113 lb) 04/12/2021 9:07 AM SHINGLES ROOFER HELPER Height 157.5 cm (5' 2) 04/12/2021 9:07 AM SHINGLES ROOFER HELPER Body Mass Index 20.67 04/12/2021 9:07 AM SHINGLES ROOFER HELPER Plan of Treatment Health Maintenance Due Date [...] age to complete this topic Insurance MEDICAID [facility] Care Teams Feeder Tender Relationship Specialty Start Date End Date Provider, None OR PCP - General 11/24/18
--- OUTSIDE RECORDS SUMMARY | 2024-11-04 13:32 | XMS_ITS | Encounter Summary ---
Author Organization [facility] Healthcare Address [address] [place] [address] Care Team Providers Care Mexican Food Maker Name Role Phone Jesús Yates MD Primary Care Provider [phone] Encounter Details Date Type Department Care Team (Latest Contact Info) Description 11/04/2024 Results Follow-Up [facility] Gastroenterology at [address] [place] [phone] Guicho Thomas, [address] [place] [address] Folate, Iron profile w/ IBC, Vitamin B12, Additional followed-up results: 13 Social History Tobacco Use Types Packs/Day Years [...] on file 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 Gender Identity Not on file Sexual Orientation Not on file documented as of this encounter Functional Status documented as of this encounter Miscellaneous Notes * Result Encounter Note - August Walker MA - 11/04/2024 1:04 PM CDT Pt notified documented in this encounter Plan of Treatment Upcoming Encounters Date Type Department Care Team (Latest Contact Info) Description 11/25/2024 9:30 AM CDT Hospital Encounter [address] [address] Guicho Thomas, DO [address] [facility] [address] [place] [address] 11/25/2024 9:30 AM CDT - 11/25/2024 9:51 AM CDT Surgery [address] [address] Guicho Thomas, [address] [facility] [address] [place] [address] ESOPHAGOGASTRODUODENOSCOPY Scheduled Procedures Name Priority Associated Diagnoses Date/Ti me ESOPHAGOGASTRODUODENOSCOPY Nausea and vomiting, unspecified vomiting type Gastroesophageal reflux disease, unspecified whether esophagitis present 11/25/2024 9:30 AM CDT documented as of this encounter Visit Diagnoses Not on filedocumented in this encounter Care Teams Mexican Food Maker Relationship Specialty Start Date End Date Jesús Yates MD PCP - General Family Medicine 12/11/19 documented as of this encounter
--- OUTSIDE RECORDS SUMMARY | 2024-11-04 13:32 | XMS_ITS | Encounter Summary ---
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 We will colon potassium replacement. The rest of her lab work is unremarkable. We will recheck potassium in 3 days. If she worsens, she has been instructed to go to the emergency department. documented in this encounter Plan of Treatment Upcoming Encounters Date Type Department Care Team (Latest Contact Info) Description 11/25/2024 9:30 AM CDT Hospital Encounter [address] [address] Guicho Thomas DO [address] [facility] [address] [place] [address] 11/25/2024 9:30 AM CDT - 11/25/2024 9:51 AM CDT Surgery [address] [address] Guicho Thomas DO [address] [facility] [address] [place] [address] ESOPHAGOGASTRODUODENOSCOPY Scheduled Orders Name Type Priority Associated Diagnoses Orde r Schedule Basic metabolic panel Lab Routine Hypokalemia Expected: 11/11/2024, Expires: 11/04/2025 Scheduled Procedures Name Priority Associated Diagnoses Date/Ti me ESOPHAGOGASTRODUODENOSCOPY Nausea and vomiting, unspecified vomiting type Gastroesophageal reflux disease, unspecified whether esophagitis present 11/25/2024 9:30 AM CDT documented as of this encounter Visit Diagnoses Diagnosis Nausea and vomiting Nausea with vomiting Gastroesophageal reflux disease Esophageal reflux Hypokalemia- Primary Hypopotassemia Nausea and vomiting, unspecified vomiting type Gastroesophageal reflux disease, unspecified whether esophagitis present documented in this encounter Care Teams Concrete Mixing Plant Laborer Relationship Specialty Start Date End Date Jesús Yates MD PCP - General Family Medicine 12/11/19 documented as of this encounter
--- OUTSIDE RECORDS SUMMARY | 2024-11-04 13:32 | XMS_ITS | Encounter Summary ---
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 Gender Identity Not on file Sexual Orientation Not on file documented as of this encounter Functional Status documented as of this encounter Miscellaneous Notes * Telephone Encounter - Deya Cleary LPN - 11/04/2024 10:01 AM CDT Pt is scheduled for an EGD with on 11-25-24 at 930 Pt on blood thinner (if yes, list medication and reason for taking): no Has pt had recent stent placement within the last year: no Pt have pacemaker/defibrillator: no Pt diabetic (if yes, insulin or oral meds): no Pt takes injections for weight loss: no Pt have kidney disease or on dialysis: no Pt on iron: no Mechanical Heart valve: no Living in a Detention, Rehab, Assisted Living, or Assisted (If so, patient will automatically need a 2 day prep): no Instructed pt to call with any medical changes and/or medications/insurance. documented in this encounter Plan of Treatment Upcoming Encounters Date Type Department Care Team (Latest Contact Info) Description 11/25/2024 9:30 AM CDT Hospital Encounter [address] [address] Guicho Thomas DO [address] [facility] [address] [place] [address] 11/25/2024 9:30 AM CDT - 11/25/2024 9:51 AM CDT Surgery [address] [address] Guicho Thomas DO [address] [facility] [address] [place] [address] ESOPHAGOGASTRODUODENOSCOPY Scheduled Procedures Name Priority Associated Diagnoses Date/Ti hi ESOPHAGOGASTRODUODENOSCOPY Nausea and vomiting, unspecified vomiting type Gastroesophageal reflux disease, unspecified whether esophagitis present 11/25/2024 9:30 AM CDT documented as of this encounter Visit Diagnoses Diagnosis Nausea and vomiting, unspecified vomiting type- Primary Gastroesophageal reflux disease, unspecified whether esophagitis present Nausea and vomiting Nausea with vomiting Gastroesophageal reflux disease Esophageal reflux Nausea and vomiting, unspecified vomiting type Gastroesophageal reflux disease, unspecified whether esophagitis present documented in this encounter Orders Case Request Count Last Ordered Date First Orde red Date CASE REQUEST GI 1 11/04/2024 documented in this encounter Care Teams Brakes Inspector Relationship Specialty Start Date End Date Jesús Yates MD PCP - General Family Medicine 12/11/19 documented as of this encounter
--- OUTSIDE RECORDS SUMMARY | 2024-11-04 13:32 | XMS_ITS | Clinical Summary ---
Author Organization [facility] Address [address] [place] [address] Care Team Providers Care Gm Video Name Role Phone Jesús Yates MD Primary Care Provider Allergies Active Allergy Reactions Criticality Noted Date [...] for anxiety) 20 capsule 04/17/19 22 Active omeprazole (PriLOSEC) 40 mg capsule Take 1 capsule (40 mg total) by mouth daily 90 capsule 3 11/05/19 25 026 Active potassium chloride ER (KLOR-CON) 20 mEq CR tablet Take 2 tablets (40 mEq total) by mouth 2 (two) times a day for 7 days 28 tablet 11/05/19 25 025 Active Active Problems Problem Noted Date Diagnosed Date Nausea and vomiting 11/04/2024 Gastroesophageal reflux disease 11/04/2024 Intractable vomiting 02/11/2020 Assessment & Plan (02/11/2020 11:49 AM ASSOCIATE PROFESSOR OF LITERATURE): Yaa and Bj6. Discussed signs and symptoms of Severe Dehydration. Fiber Supplement for Constipation. Follow up with OB Less than 8 weeks gestation of 020 Assessment & Plan (01/15/2020 4:53 PM ASSOCIATE PROFESSOR OF LITERATURE): Discussed briefly dos and don'ts of pregnancies. Anticipate normal risk . Recommend Tobacco Cessation. Discontinue Klonopin/Tramadol/Flexeri and take them only PRN. Contact [facility]ENT[facility] cain. Referral. Encounters Date Type Department Care Team Description 11/04/2024 9:55 AM CDT Lab [address] Abdominal pain; Gastroesophageal reflux disease, unspecified whether esophagitis present; Nausea and vomiting, unspecified vomiting type; Weight loss 11/04/2024 9:00 AM CDT Office Visit [facility] Gastroenterology at [address], [place] [address] Guicho Thomas, Abdominal pain (Primary Dx); Gastroesophageal reflux disease, unspecified whether esophagitis present; Nausea and vomiting, unspecified vomiting type; Weight loss; Family history of colon cancer; Chronic idiopathic constipation 11/04/2024 Telephone [facility] Gastroenterology at [address], [place] [address] Denise[facility] 11/04/2024 Results Follow-Up [facility] Gastroenterology at [address], [place] [address] Guicho Thomas, DO Folate, Iron profile w/ IBC, Vitamin B12, Additional followed-up results: 13 11/04/2024 Orders Only [facility] Gastroenterology at [address], [place] [address] Guicho Thomas, DO Hypokalemia (Primary Dx) 11/04/2024 Telephone [facility] Gastroenterology at [address] [place] [address] Deya Cleary LPN 10/28/2024 Telephone [facility] Gastroenterology at [address] [place] [address] Filomena Braxton from Last 3 Months Surgical History Surgery Date Site/Laterality Comments TYMPANOSTOMY TUBE PLACEMENT ESOPHAGOGASTRODUODENOSCOPY COLONOSCOPY TONSILLECTOMY TUBAL LIGATION Medical History Medical History Date Comments SONIDO (generalized anxiety disorder) Marijuana use MDD (major depressive disorder) Asthma Tobacco abuse Chronic idiopathic constipation IBS (irritable colon syndrome) Family History Medical History Relation Name Comments [...] on file Legal Sex Female 7:26 AM ASSOCIATE PROFESSOR OF LITERATURE Gender Identity Not on file Sexual Orientation Not on file Obstetrics History Last Filed Vital Signs Vital Sign Reading Time Taken Comments Blood Pressure 130/90 11/04/2024 9:03 AM CDT Pulse 119 11/04/2024 9:03 AM CDT Temperature 36.4 C (97.5 F) 01/03/2022 6:14 PM ASSOCIATE PROFESSOR OF LITERATURE Respiratory Rate 26 01/03/2022 8:37 PM ASSOCIATE PROFESSOR OF LITERATURE Oxygen Saturation 98% 11/04/2024 9:03 AM CDT Inhaled Oxygen Concentration - - Weight 49.5 kg (109 lb 3.2 oz) 11/04/2024 9:03 A M CDT Height 157.5 cm (5' 2) 11/04/2024 9:03 AM CDT Body Mass Index 19.97 11/04/2024 9:03 AM CDT Plan of Treatment Upcoming Encounters Date Type Department Care Team (Latest Contact Info) Description 11/25/2024 9:30 AM CDT Hospital Encounter [facility] [address] [place] [address] Guicho Thomas DO [address] DORANTES [place] [address] 11/25/2024 9:30 AM CDT - 11/25/2024 9:51 AM CDT Surgery [address] [address] Guicho Thomas DO [address] [place]ANT[place] [address] ESOPHAGOGASTRODUODENOSCOPY Scheduled Procedures Name Priority Associated Diagnoses Date/Ti me ESOPHAGOGASTRODUODENOSCOPY Nausea and vomiting, unspecified vomiting type Gastroesophageal reflux disease, unspecified whether esophagitis present 11/25/2024 9:30 AM CDT Health Maintenance Due Date Last Done Comments [...] 1997, 1997 Varicella Vaccines Discontinued 02/07/2007, 03/29/1998 Procedures Procedure Name Priority Date/Time Associated Diagnosis [...] and vomiting, unspecified vomiting type Weight loss from Last 3 Months Results * eGFR (11/04/2024 10:06 AM CDT) [...] of Race in Diagnosing Kidney Disease, JASN 202). The CKD-EPI equation should not be used for patients with unstable renal function and has not been validated in children and those over 70. Current interpretive data was last reviewed 2020. Blood 11/04/2024 10:0 6 AM CDT 11/04/2024 10:50 AM CDT us Guicho Thomas DO LAB BLOOD ORDERABLES Final Res ult MAGDA DUKES ([place]) [address] [facility] [place] [address] * Differential, auto (11/04/2024 10:06 AM CDT) Neutrophil abs 6.47 1.50 - 6.50 K/cumm Imm gran abs 0.04 0.00 - 0.10 K/cumm [facility] ([place]) Lymphocyte abs 1.30 0.80 - 3.30 K/cumm [facility] ([place]) Monocyte abs 0.66 0.20 - 0.80 K/cumm [facility] ([place]) Eosinophil abs 0.02 0.00 - 0.50 K/cumm [facility] ([place]) Basophil abs 0.03 0.00 - 0.10 K/cumm [facility] ([place]) Neutrophil pct 75.9 % [facility] ([place]) Comment: Interpretive Data Percent cell count reference ranges are not reported, since discordance with absolute values may lead to misinterpretation of CBC data. Current Interpretive Data was last revised on 2017. Imm gran pct 0.5 % [facility] ([place]) Comment: Interpretive Data Percent cell count reference ranges are not reported, since discordance with absolute values may lead to misinterpretation of CBC data. Current Interpretive Data was last revised on 2017. Lymphocyte pct 15.3 % [facility] ([place]) Comment: Interpretive Data Percent cell count reference ranges are not reported, since discordance with absolute values may lead to misinterpretation of CBC data. Current Interpretive Data was last revised on 2017. Monocyte pct 7.7 % [facility] ([place]) Comment: Interpretive Data Percent cell count reference ranges are not reported, since discordance with absolute values may lead to misinterpretation of CBC data. Current Interpretive Data was last revised on 2017. Eosinophil pct 0.2 % [facility] ([place]) Comment: Interpretive [...] ORDERABLES Final Res ult Performing Organization Address [facility]/ZIP Co de Phone Number [facility] ([place]) [address] [place] [address] * Thyroid Function [place] (11/04/2024 10:06 AM CDT) TSH 0.45 0.30 - 4.20 mcIUnit/mL [facility] ([place]) Blood 11/04/2024 10:0 6 AM CDT 11/04/2024 10:50 AM CDT Guicho Thomas DO LAB BLOOD ORDERABLES Final Res ult Performing Organization Address [facility] de Phone Number MAGDA DUKES ([place]) [address] [place] [address] * (ABNORMAL) Iron profile w/ IBC (11/04/2024 10:06 AM CDT) Iron 48 35 - 145 mcg/dL [facility] ([place]) TIBC 329 250 - 400 mcg/dL [facility] ([place]) Transferrin saturation 15(L) 20 - 50 % [facility] ([place]) Blood 11/04/2024 10:0 6 AM CDT 11/04/2024 10:50 AM CDT Guicho Thomas DO LAB BLOOD ORDERABLES Final Res ult Performing Organization Address City/[facility]/ZIP Co de Phone Number [facility] ([place]) 1 [facility] [place] [address] * (ABNORMAL) CBC with auto differential (11/04/2024 [...] Final Res ult MAGDA DUKES ([place]) [address] [facility] [place] [address] * Protime-INR (11/04/2024 10:06 AM CDT) Pathologist [facility] PT 13.1 10.2 - 13.5 sec [facility] ([place]) INR 1.16 0.90 - 1.20 [facility] ([place]) Comment: Interpretive data Oral anticoagulant therapeutic ranges: Venous thromboembolism prophylaxis or treatment: 2.0-3.0 CARDIOLOGY Standard range: 2.0-3.0 High-intensity range: 2.5-3.5 Refer to indication-specific guidelines for appropriate target ranges for prosthetic heart valve replacement. Current interpretive data was last revised on 2019. Blood 11/04/2024 10:0 6 AM CDT 11/04/2024 10:50 AM CDT Guicho Thomas DO LAB BLOOD ORDERABLES Final Res ult [facility] ([place]) [address] [place] [address] * CRP (acute phase) (11/04/2024 10:06 AM CDT) CRP <3.0 <=10.0 mg/L MAGDA [facility]) Blood 11/04/2024 10:0 6 AM CDT 11/04/2024 10:50 AM CDT us Guicho Thomas DO LAB BLOOD ORDERABLES Final Res ult Performing Organization Address [facility] Co de Phone Number MAGDA DUKES ([place]) [address] [place] [address] * TSH (11/04/2024 10:06 AM CDT) Thyroid Stimulating Hormone 0.45 0.30 - 4.20 mcIUnit/mL [facility] Blood 11/04/2024 10:0 6 AM CDT 11/04/2024 10:50 AM CDT us Guicho Thomas DO LAB BLOOD ORDERABLES Final Res ult Performing Organization Address City/[facility]/ZIP Co de Phone Number MAGDA DUKES ([place]) [address] [place] [address] * Phosphorus (11/04/2024 10:06 AM CDT) Phosphorus, pl 3.1 2.3 - 4.5 mg/dL [facility] ([place]) Blood 11/04/2024 10:0 6 AM CDT 11/04/2024 10:50 AM CDT Guicho hTomas DO LAB BLOOD ORDERABLES Final Res ult MAGDA DUKES ([place]) 1 [facility] [place] [address] * Magnesium (11/04/2024 10:06 AM CDT) Magnesium 2.1 1.4 - 2.5 mg/dL [facility] ([place]) Blood 11/04/2024 10:0 6 AM CDT 11/04/2024 10:50 AM CDT Guicho Thomas DO LAB BLOOD ORDERABLES Final Res ult MAGDA DUKES ([place]) 1 [facility] [place] [address] * Folate (11/04/2024 10:06 AM CDT) Folic acid 16.6 >=5.0 ng/mL [facility] ([place]) Blood 11/04/2024 10:0 6 AM CDT 11/04/2024 10:50 AM CDT Giucho Thomas DO LAB BLOOD ORDERABLES Final Res ult MAGDA DUKES ([place]) 1 [facility] [place] [address] * Ferritin (11/04/2024 10:06 AM CDT) Ferritin 74 13 - 150 ng/mL [facility] ([place]) Blood 11/04/2024 10:0 6 AM CDT 11/04/2024 10:50 AM CDT Guicho Thomas DO LAB BLOOD ORDERABLES Final Res ult MAGDA DUKES ([place]) [address] [facility] [place] [address] * (ABNORMAL) Vitamin B12 (11/04/2024 10:06 AM CDT) Vitamin B12 1,461(H) 230 - 1,250 pg/mL [facility] ([place]) Blood 11/04/2024 10:0 6 AM CDT 11/04/2024 10:50 AM CDT Guicho Thomas DO LAB BLOOD ORDERABLES Final Res ult Performing Organization Address [facility] de Phone Number MAGDA DUKES ([place]) 1 [facility] [place] [address] * (ABNORMAL) Hepatic function panel (11/04/2024 10:06 [...] Final Res ult MAGDA DUKES ([place]) 1 [facility] [place] [address] * (ABNORMAL) Lipid panel (11/04/2024 10:06 AM CDT) Cholesterol 132 30 - 199 mg/dL MAGDA [facility] ([place]) Comment: Interpretive Data Ages < or [...] on 2017. Triglycerides 86 <=149 mg/dL MAG[facility] ([place]) Comment: Interpretive Data Ages < or [...] on 2017. HDL 37(L) >=40 mg/dL [facility] ([place]) Comment: Interpretive Data Ages < [...] 3. Allan Mccallum et al. SAVANA Cardiol. 2019June 05;5(5):540-548. doi: [email or web address] Current Interpretive Data was last revised on 2023. Testing performed by: [place], [address] Non-HDL Cholesterol 95 mg/dL MAGDA DUKES ([place]) [...] last revised on 2017. Testing performed by: [place], [address] Chol/HDL ratio 4 MYRNA DUKES ([place]) Comment:Testing performed by : [place], [address] Blood 11/04/2024 10:0 6 AM CDT 11/04/2024 10:50 AM CDT Guicho T. Klucka DO LAB BLOOD ORDERABLES Final Res ult Performing Organization Address City/[facility]/ZIP Co de Phone Number MAGDA DUKES ([place]) [address] [facility] [place] [address] * (ABNORMAL) Basic metabolic panel (11/04/2024 10:06 AM CDT) Sodium 135 135 - 145 mmol/L [facility] ([place]) Potassium, pl 3.0(C) 3.3 - 4.9 mmol/L [facility] ([place]) Comment:Critical Result call ed by [email or web address] at 2024-11-04 12:43:32. Result Read Back by William Lindo MD Chloride 88(L) 97 - 110 mmol/L [facility] ([place]) CO2 24 22 - 32 mmol/L [facility] ([place]) Anion gap 23(H) 2 - 15 mmol/L [facility] ([place]) BUN 7 6 - 25 mg/dL CERNER [...] ORDERABLES Final Res ult Performing Organization Address [facility]/ZIP Co de Phone Number MAGDA DUKES ([place]) [address] [facility] [place] [address] from Last 3 Months Insurance Care Teams Gm Video Relationship Specialty Start Date End Date Jesús Yates MD PCP - General Family Medicine 12/11/19
--- OUTSIDE RECORDS SUMMARY | 2024-11-04 13:32 | XMS_ITS | Encounter Summary ---
Author Organization [facility] Address [address] [place] [address] Care Team Providers Care Shirring Tender Name Role Phone None, Provider MD Primary Care Provider Lyndaa courtney None, Provider Primary Care Provider Unavaila ble Jordyn Michel Primary Care Provider [phone] Encounter Details Date Type Department Care Team (Late st Contact Info) Description 04/26/2021 Prep for Procedure [facility] [place] [address] Guicho Thomas, DO [address] [facility] [address] [place] [address] Social History Tobacco Use Types Packs/Day Years [...] Risk Indicated 04/29/2021 12:29 PM CDT Idalia Sánchez RN Active * [place] Suicide Severity Rating Scale (Screener/Recent Self-Report) Question [...] SPEC DESCRIPTION NASAL 05/03/19 10:21 AM CDT [facility] CORONAVIRUS SARS COV 2 PCR (RESP) NEGATIVE NEGATIVE 05/02/2021 7:45 PM CDT [facility] Comment: THE SARS-CoV-2 TEST HAS BEEN AUTHORIZED BY THE FDA UNDER AN EUA FOR USE BY AUTHORIZED LABORATORIES. PERFORMED BY NUCLEIC ACID AMPLIFICATION PCR FIRST TEST UNKNOWN 05/02/2021 10:21 AM CDT [facility] EMPLOYED IN HEALTHCARE NO 05/02/2021 10:21 AM CDT [facility] SYMPTOMATIC DEFINED BY CDC NO 05/02/2021 10:21 AM CDT [facility] HOSPITALIZATION STATUS NO 05/02/2021 10:21 AM CDT [facility] PATIENT IN ICU NO 05/02/2021 10:21 AM CDT [facility] RESIDENT OF [facility] NO 05/02/2021 10:21 AM CDT [facility] UNKNOWN 05/02/2021 10:21 AM CDT [facility] NASAL STRUCTURE / Unknown 05/02/2021 10:20 AM CDT us Guicho Thomas DO MICROBIOLOGY - GENERAL ORDERABL ES Final Result [facility] [address] [place] [address], [place] [phone] [facility] [address] [place] [address], [place] [phone] documented in this encounter Visit Diagnoses Diagnosis Weight loss- Primary Loss of weight documented in this encounter Additional Health Concerns Infection Onset Date Last Indicated Resolved Time COVID-19 Rule Out 05/02/2021 05/02/2021 05/02/2021 7:45 PM CDT documented as of this encounter Care Teams Shirring Tender Relationship Specialty Start Date End Date None, Provider, PCP - General 04/07/21 04/28/21 None, Provider, PCP - General 04/29/21 04/29/21 Jordyn Michel FNP [address] [place] [id number] PCP - General Nurse Practitioner Family 04/30/21 documented as of this encounter
[2024-11-04 13:34] VITALS: BP 129/104; PULSE 103; RESP 19; O2SAT 100
[2024-11-04 13:39] VITALS: RESP 18; O2SAT 100
--- NOTE | 2024-11-04 13:59 | ED.RECABL ---
HPI - Recheck/Abnormal Lab/Rx General Chief Complaint: Recheck/Abnormal Lab/Rx Stated Complaint: low potassium Time Seen by Provider: 11/04/24 13:29 History of Present Illness HPI narrative: This is a 29-year-old female with history of recurrent hypokalemia, cyclic vomiting syndrome presents the ED nausea, vomiting, hypokalemia. Patient states that she saw her PCP she show that she had a low potassium. After discussion with her PCP, she elected to come to the ED as she did not think that she can keep the potassium pills down. Patient states that she has intermittently past several days. She was seen at [facility] and believe she was given a medication history an O but is unsure what was. Denies abdominal pain, fevers, chills, chest pain, shortness of breath. She last used marijuana 4 weeks ago. Related Data Home Medications ?Medication ?Instructions ?Recorded ?Confirmed ?Last Taken ?Type promethazine 25 mg tablet 25 mg PO TID PRN nausea and 10/21/24 10/21/24 Unknown History vomiting Allergies Allergy/AdvReac Type Severity Reaction Status Date / Time haloperidol (From Haldol) AdvReac Intermediate Anxiety Verified 11/04/24 14:12 metoclopramide AdvReac Intermediate Anxiety Verified 11/04/24 14:12 prochlorperazine (From AdvReac Intermediate Anxiety Verified 11/04/24 14:12 Compazine) Review of Systems Review of Systems: Gen.: Denies fevers or chills Eyes: Denies eye pain or visual change ENT: Denies congestion Respiratory: Denies shortness of breath or cough CV: Denies chest pain or palpitations GI: As per HPI denies burning, urgency, frequency or hematuria Musculoskeletal: Denies back pain or muscle pain Neuro: Denies numbness, tingling, weakness or focal weakness Skin: Denies rash Except as documented, all other systems reviewed and negative [facility] Past Medical History Medical History (normal spontaneous vaginal delivery) 2020-severe hyperemesis, preeclampsia 2023 Anxiety Asthma childhood only Surgical History Surgical History History of tympanostomy Family History Family History Father Alive and well Colon cancer Mother Alive and well Sibling Brain tumor Social History Social History Smoking packs per day: 0.5 Smoking cigarettes per day: 10.0 Years smoked: 10 Smoking pack-years: 5.00 Smoking status: Current every day smoker Tobacco type: cigarettes and e-cigarettes/vaping Second hand tobacco smoke exposure: Yes Smoking end date: 01/06/20 Additional smoking assessment comments: HAS BEEN SMOKING PUFF BAR SINCE NOVEMBER 2019 Alcohol intake: current Alcohol use details: 1/MONTH Substance use: current Substance use type: marijuana Other substance usage details: OCCASIONAL MARIJUANA Do You Feel Safe in your Home?: No Lack of Transportation: No Lack of Food: Never True Current Housing: I Have Housing Concerned About Future Housing: No Difficulty Paying Gas/Electric Bills: No Difficulty Paying for Meds: No Currently Unemployed: No Education: High School Diploma/GED Difficulty w/ Childcare or Family Care: No Living arrangements: with family Gender identity (if verbalized by the patient): Female Spiritual care concerns: No Exam Narrative: APPEARANCE: No acute distress, nontoxic, resting in bed EYES: EOMI HEENT: Normocephalic, atraumatic, OMM RESPIRATORY: No respiratory distress Clear to auscultation bilaterally with no rhonchi wheezing or rales. CARDIOVASCULAR: Tachycardic with regular rhythm without murmurs rubs or gallops. ABDOMINAL: Soft, nontender, nondistended, no rebound or guarding MUSCULOSKELETAl: Moves all extremities. No clubbing, cyanosis or edema. NEURO: Awake and alert. Following commands, speech normal, no focal deficits SKIN:: Warm, dry. No rashes lesions or abrasions PSYCHIATRIC: Normal affect/mood, Course Vital Signs Vital signs: Vital Signs Pulse Rate 103 H 11/04/24 13:34 Respiratory Rate 19 11/04/24 13:34 Blood Pressure 129/104 H 11/04/24 13:34 Pulse Oximetry 100 11/04/24 13:34 Oxygen Delivery Room Air 11/04/24 13:34 Temperature 97.8 F 11/04/24 19:34 Pulse Rate 90 11/04/24 20:47 Respiratory Rate 18 11/04/24 20:47 Blood Pressure 95/57 L 11/04/24 20:47 Pulse Oximetry 99 11/04/24 20:47 Oxygen Delivery Room Air 11/04/24 13:34 MDM - Recheck/Abnormal Lab/Rx MDM Narrative Medical decision making narrative: 29-year-old female presenting for hypokalemia and nausea, vomiting. On initial evaluation, patient was in no acute distress, afebrile, hemodynamically stable. Abdomen is soft nontender. She was tachycardic but otherwise heart and lungs were clear. CBC and BMP were obtained which revealed a hypokalemia to 2.8. She was also hyponatremic to 130. Patient was given Decadron with improvement of her nausea. However, when she was given the potassium supplementation, she did vomit after this. She was subsequently given droperidol and was able to tolerate her potassium pills. She was also given potassium chloride IV. Patient was deemed discharge this time. She was also given prescriptions for scopolamine, and Zofran, and potassium chloride pills. She was advised follow-up with her PCP in the next few days for re-evaluation. Patient was agreeable to this plan. Given strict return precautions. Differential Diagnosis Differential diagnosis: Likely other (Electrolyte abnormality, cyclic vomiting syndrome, gastroenteritis) Medical Records Attestation: I reviewed the patient's medical records. Lab Data Attestation: I reviewed the patient's lab results. 11/04/24 14:18 11/04/24 14:18 Labs: Lab Results 11/04/24 11/04/24 Range/Units 14:18 14:19 WBC 7.1 (4.5-10.0) K/mm3 RBC 4.64 (4.2-5.4) M/mm3 Hgb 14.2 (12.0-15.0) g/dL Hct 39.8 (37.0-47.0) % MCV 85.8 (80-100) fl MCH 30.6 (26-34) pg MCHC 35.7 (32-36) g/dl RDW 12.6 (11.5-14.5) % Plt Count 273 (150-375) k/mm3 MPV 12.4 H (7.4-10.4) fl Immature Gran % (Auto) 0.3 (0-0.5) % Neut % (Auto) 70.1 (45.5-73.1) % Lymph % (Auto) 19.3 (18.3-44.2) % Crawford % (Auto) 9.5 H (2.6-8.5) % Eos % (Auto) 0.4 (0-4.4) % Baso % (Auto) 0.4 (0.2-1.2) % Lymph # (Auto) 1.38 (0.9-3.2) K/mm3 Crawford # (Auto) 0.7 H (0.1-0.6) K/mm3 Eos # (Auto) 0.0 (0-0.3) K/mm3 Baso # (Auto) 0.0 (0.0-0.1) K/mm3 Abs Immat Gran (auto) 0.02 (0.00-0.031) K/mm3 Absolute Neuts (auto) 5.0 (1.3-6.7) K/mm3 Absolute Nucleated RBC 0.000 (0.0-0.012) K/mm3 Nucleated RBC % 0.0 (0.0-0.2) % Sodium 130 L (137-145) mmol/L Potassium 2.8 L* (3.4-5.0) mmol/L Chloride 88 L (98-107) mmol/L Carbon Dioxide 22 (22-30) mmol/L Anion Gap 20 H (4-12) mmol/L BUN 7 (7-17) mg/dL Creatinine 0.59 L (0.7-1.0) mg/dL Estim Creat Clear Calc 95 ml/min Estimated GFR > 60 (59 - ) Glucose 88 (65-110) mg/dL Calcium 9.5 (8.4-10.2) mg/dL Serum HCG, Qual Negative ECG Data EKG #1: Attestation: I personally reviewed and interpreted this ECG as follows: ECG completion date: 11/04/24 ECG completion time: 13:32 Interpretation: Sinus tachycardia rate of 104, left axis deviation, normal intervals, nonspecific ST and T-wave changes Discharge Plan Discharge Clinical Impression: Cyclic vomiting syndrome, Acute hypokalemia Patient Disposition: Home Condition: Stable Instructions: Antibiotic Form, Hypokalemia (ED), Cyclic Vomiting Syndrome (ED) Additional Instructions: Take Zofran, scopolamine, potassium chloride as prescribed. Follow-up with your PCP in the next week for re-evaluation. Return to the ED for any new or worsening symptoms. Patient Language: Croatian Prescriptions: New scopolamine base 1 mg over 3 days patch 3 day 1 patch transdermal Q3D PRN (Reason: nausea and vomiting) Qty: 10 0RF ondansetron 8 mg tablet,disintegrating 8 mg PO Q8H PRN (Reason: nausea and vomiting) Qty: 14 0RF potassium chloride [Klor-Con M20] 20 mEq tablet,ER particles/crystals 20 meq PO BID Qty: 12 0RF No Action clonidine HCl 0.1 mg tablet 0.1 mg PO BID PRN (Reason: anxiety) Qty: 40 0RF ondansetron 8 mg tablet,disintegrating 8 mg PO Q8H PRN (Reason: nausea and vomiting) Qty: 14 0RF promethazine 25 mg tablet 25 mg PO TID PRN (Reason: nausea and vomiting) Follow-up/Referrals: Oscar,Tasia Virk APN [Primary Care Provider, Unknown]
[2024-11-04] MEDS: SODIUM CHLORIDE 0.9% IV 1,000 ML 999 ML IV CONT (14:16)
[2024-11-04 14:26] LABS: Hematocrit 39.8 % (37.0-47.0); Hemoglobin 14.2 g/dL (12.0-15.0); Immature Granulocyte Percent A 0.3 % (0-0.5); Lymphocytes Absolute Auto 1.38 K/mm3 (0.9-3.2); Mean Corpuscular HGB Conc 35.7 g/dl (32-36); Mean Corpuscular Hemoglobin 30.6 pg (26-34); Mean Corpuscular Volume 85.8 fl (80-100); Nucleated Red Blood Cells Absolute Auto 0.000 K/mm3 (0.0-0.012); Nucleated Red Blood Cells Perc 0.0 % (0.0-0.2); Platelet Count Result 273 k/mm3 (150-375); Red Blood Count 4.64 M/mm3 (4.2-5.4); White Blood Count 7.1 K/mm3 (4.5-10.0)
[2024-11-04 14:28] VITALS: BP 100/74; PULSE 102; RESP 20; TEMP 36.7; O2SAT 100
[2024-11-04 14:43] LABS: Anion Gap 20 mmol/L (4-12); Blood Urea Nitrogen 7 mg/dL (7-17); Calcium 9.5 mg/dL (8.4-10.2); Carbon Dioxide 22 mmol/L (22-30); Chloride 88 mmol/L (98-107); Estimated CRCL calculation 95 ml/min; Estimated Glomerular Filt Rate > 60; Glucose 88 mg/dL (65-110); Potassium 2.8 mmol/L (3.4-5.0); Sodium 130 mmol/L (137-145)
[2024-11-04 14:44] LABS: SPREG INTERNAL CONTROL Positive; Serum Qual hCG Negative
[2024-11-04] MEDS: POTASSIUM CHLORIDE INJ 40 MEQ in SODIUM CHLORIDE 0.9% IV 500 ML 130 MEQ IVPB (15:58)
[2024-11-04] MEDS: POTASSIUM CHLORIDE 20 MEQ ER TABLET 40 MEQ PO ×2 (16:32→19:05)
[2024-11-04 17:38] VITALS: PULSE 95; RESP 20; O2SAT 99
[2024-11-04 19:34] VITALS: BP 93/59; PULSE 92; RESP 18; TEMP 36.6; O2SAT 99
[2024-11-04 20:47] VITALS: BP 95/57; PULSE 90; RESP 18; O2SAT 99
== END 2024-11-04 20:48 | disposition home or self-care (01) ==
PROVIDERS: Emergency Provider Student in an Organized Health Care Education/Training Program; PCP Nurse Practitioner Family
DX: R11.15 Cyclical vomiting syndrome unrelated to migraine (principal); E87.6 Hypokalemia; F17.210 Nicotine dependence, cigarettes, uncomplicated
CPT/HCPCS: 36415; 80048; 84703; 85025; 93005; 96365; 96366; 96375; 99284; A9270; J1100; J1200; J1790; J3480; J7030; J7040

== ENCOUNTER 2024-11-10 01:11 | Day surgery (SDC) | payer OTHER, SELFPAY ==
[2024-10-21 12:32] VITALS: BMI 21.9
--- NOTE | 2024-10-21 12:32 | PC.NURSE ---
Report to the Outpatient Waiting Room, entrance under the green pavilion located off [facility], at time _0915_ on date _[id number]_. Planned Procedure Time: _1115_.? Time changes happen often and if your time is changed the preop area will call you the afternoon before. - You and your visitor will be asked to self-screen and do not enter if you have any COVID symptoms. Please call surgeon if you need to reschedule. - A mask is optional within the hospital at this time. Patients may have clear liquids (water, carbonated beverages, clear teas, apple juice) until 3 hours prior to surgery with a maximum of 20 ounces. - No food from midnight until time of surgery and no smoking, or chewing tobacco (or any form of nicotine). No chewing gum, candy or mints. Take only the following medications with a SIP of water on the morning of surgery: ___Anxiety or nausea medications if needed.____ DO NOT STOP ANY OF YOUR OTHER PRESCRIPTION MEDICATIONS PRIOR TO SURGERY EXCEPT THE FOLLOWING Hold all vitamins and supplements for 3 days per anesthesiologist. Medications to discontinue per physician Date to take last dose Please no make-up, nail georgian, hairspray, perfume, deodorant, or body powder the day of surgery.? No jewelry (including any body piercings) or valuables the day of surgery, leave them at home.? Please take a shower or bath the night before, or the morning of, surgery with an antibacterial soap.? Wear comfortable, loose fitting clothing.? - Jewelry must be removed prior to entering the operating room.? Rings and piercings that are not removed may be cut off. - The hospital will not accept responsibility for valuables.? - Please leave all valuables, including medications, at home the day of surgery. If you are going home after surgery, a licensed local hazmat driver must drive you home.? - NO public transportation without another adult if you receive anesthesia. - We recommend that an adult stay with you for 24 hours following discharge. - We also recommend that you do not drive, make important decision, drink alcoholic beverages, or take any drugs that were not prescribed by your health care provider for at least 24 hours after your discharge time. Follow any additional instructions given to you from your surgeon. Telephone instructions given to __Aisha__and asked if any additional questions and then verbalized understanding. Patient advised to call surgeon office or pre surgery nurse liaison [phone] if any additional questions.
--- OUTSIDE RECORDS SUMMARY | 2024-10-28 06:00 | XMS_ITS ---
Author Organization [facility] Address [address] [place], [place] [address] Care Team Providers Care Therapeutic Program Worker Name Role Phone Kimber Valles Unavailable [phone] Nevin Bowling Unavailable [phone] REASON FOR VISIT High Blood Pressure , Vomiting Encounters Encounter Location Date Provider Diagnosis [facility] Primary [address] [address] 10/28/2024 Nevin Bowling Plan Of Treatment No Information Progress Notes * FAITHRhea SandovalAleksandarB: 8 (29 yo F)Acc No.[id number]:10/28/2024 Progress Notes Patient: Aisha Calero Provider: JOSY Moore :1995 A ge:29 Y S ex:Female Date:10/28/2024 Phone: Address:[address] [place] [address], [id number] Subjective: * Chief Complaints: * H igh Blood Pressure , Vomiting * Electronic signature of JOSY Camilo on 11/10/2024 at 01:15 AM CDT Sign off status: Pending * Provider: JOSY Moore Date: 0 10/28/2024 Generated for [employer]/Get/eTransmitting on: 1 01:15 AM CDT
--- NOTE | 2024-10-28 14:11 | PC.NURSE ---
Addendum entered by Mary Rivas RN 10/28/24 14:13: May take clonidine (if needed) the morning of surgery Original Note: [facility] has started construction of its new state of the art ER which will open Spring 2026. With this, we anticipate parking may be a challenge for some our surgical patients and families. Parking spaces are limited but are available for all Surgical, obstetrics, and ER patients sharing this lot. If you arrive and find you are having a hard time finding a parking space, please note that we understand the challenges, please drive around the hospital and park near Hospital Entrance [address]. When you enter this entrance, you can ask a volunteer to direct or take you back to the surgical waiting area to check in. We appreciate everyone?s understanding of these expected challenges while we build for your future. Report to the Outpatient Waiting Room, entrance under the green pavilion located off [facility], at time ___6:15am____ on date [phone] . Planned Procedure Time: _8:15am .? Time changes happen often and if your time is changed the preop area will call you the afternoon before. - You and your visitor will be asked to self-screen and do not enter if you have any COVID symptoms. Please call surgeon if you need to reschedule. - A mask is optional within the hospital at this time. Patients may have clear liquids (water, carbonated beverages, clear teas, apple juice) until 3 hours prior to surgery with a maximum of 20 ounces. STOP at 5:15am. - No food from midnight until time of surgery and no smoking, or chewing tobacco (or any form of nicotine). No chewing gum, candy or mints. - Take only the following medications with a SIP of water on the morning of surgery: DO NOT STOP ANY OF YOUR OTHER PRESCRIPTION MEDICATIONS PRIOR TO SURGERY EXCEPT THE FOLLOWING n/a Hold all vitamins and supplements for 3 days per anesthesiologist.n/a Please no make-up, nail albanian, hairspray, perfume, deodorant, or body powder the day of surgery.? No jewelry (including any body piercings) or valuables the day of surgery, leave them at home.? Please take a shower or bath the night before, or the morning of, surgery with an antibacterial soap.? Wear comfortable, loose fitting clothing.? - Jewelry must be removed prior to entering the operating room.? Rings and piercings that are not removed may be cut off. - The hospital will not accept responsibility for valuables.? - Please leave all valuables, including medications, at home the day of surgery. If you are going home after surgery, a licensed class c driver must drive you home.? - NO public transportation without another adult if you receive anesthesia. - We recommend that an adult stay with you for 24 hours following discharge. - We also recommend that you do not drive, make important decision, drink alcoholic beverages, or take any drugs that were not prescribed by your health care provider for at least 24 hours after your discharge time. Follow any additional instructions given to you from your surgeon. Telephone instructions given to ____Chelsea/patient and asked if any additional questions and then verbalized understanding. Patient advised to call surgeon office or pre surgery nurse liaison [phone] if any additional questions.
--- OUTSIDE RECORDS SUMMARY | 2024-11-10 01:14 | XMS_ITS | Encounter Summary ---
Author Organization [facility] Address [address] [place] [address] Care Team Providers Care Radiation Officer Name Role Phone None, Provider MD Primary Care Provider Lyndaa courtney None, Provider Primary Care Provider Unavaila ble Jordyn Michel Primary Care Provider [phone] Encounter Details Date Type Department Care Team (Late st Contact Info) Description 04/26/2021 Prep for Procedure [facility] [place] [address] Guicho Thomas, DO 4 [facility] [address] [place] [address] Social History Tobacco Use Types Packs/Day Years [...] PM CDT Idalia Sánchez RN Active * [place] Suicide Severity Rating Scale (Screener/Recent Self-Report) Question [...] SPEC DESCRIPTION NASAL 05/03/19 10:21 AM CDT [facility] CORONAVIRUS SARS COV 2 PCR (RESP) NEGATIVE NEGATIVE 05/02/2021 7:45 PM CDT [facility] Comment: THE SARS-CoV-2 TEST HAS BEEN AUTHORIZED BY THE FDA UNDER AN EUA FOR USE BY AUTHORIZED LABORATORIES. PERFORMED BY NUCLEIC ACID AMPLIFICATION PCR FIRST TEST UNKNOWN 05/02/2021 10:21 AM CDT [facility] EMPLOYED IN HEALTHCARE NO 05/02/2021 10:21 AM CDT [facility] SYMPTOMATIC DEFINED BY CDC NO 05/02/2021 10:21 AM CDT [facility] HOSPITALIZATION STATUS NO 05/02/2021 10:21 AM CDT [facility] PATIENT IN ICU NO 05/02/2021 10:21 AM CDT [facility] RESIDENT OF [facility] CARE NO 05/02/2021 10:21 AM CDT [facility] UNKNOWN 05/02/2021 10:21 AM CDT [facility] NASAL STRUCTURE / Unknown 05/02/2021 10:20 AM CDT us Guicho Thomas DO MICROBIOLOGY - GENERAL ORDERABL ES Final Result [facility] [address] [place] [address], [place] [phone] [facility] [address] [place] [address], [place] [phone] documented in this encounter Visit Diagnoses Diagnosis Weight loss- Primary Loss of weight documented in this encounter Additional Health Concerns Infection Onset Date Last Indicated Resolved Time COVID-19 Rule Out 05/02/2021 05/02/2021 05/02/2021 7:45 PM CDT documented as of this encounter Care Teams Radiation Officer Relationship Specialty Start Date End Date None, Provider, PCP - General 04/07/21 04/28/21 None, Provider, PCP - General 04/29/21 04/29/21 Jordyn Michel FNP [address] [place] [address] PCP - General Nurse Practitioner Family 04/30/21 documented as of this encounter
--- OUTSIDE RECORDS SUMMARY | 2024-11-10 01:15 | XMS_ITS | Clinical Summary ---
Author Organization [facility] Address [address] [place] [address] Care Team Providers Care Access Specialist Name Role Phone Jesús Yates MD Primary Care Provider [phone] Allergies Active Allergy Reactions Criticality Noted Date [...] 02/11/2020 Assessment & Plan (02/11/2020 11:49 AM EDGER SAW OPERATOR): Yaa and Bj6. Discussed signs and symptoms of Severe Dehydration. Fiber Supplement for Constipation. Follow up with OB Less than 8 weeks gestation of 020 Assessment & Plan (01/15/2020 4:53 PM EDGER SAW OPERATOR): Discussed briefly dos and don'ts of pregnancies. Anticipate normal risk . Recommend Tobacco Cessation. Discontinue Klonopin/Tramadol/Flexeri and take them only PRN. Contact OB-FIELD SERVICE POULTRY TECHNICIAN cain. Referral. Encounters Date Type Department Care Team Description 11/04/2024 9:55 AM CDT Lab [address] Abdominal pain; Gastroesophageal reflux disease, unspecified whether esophagitis present; Nausea and vomiting, unspecified vomiting type; Weight loss 11/04/2024 9:00 AM CDT Office Visit [facility] Gastroenterology at [address], [place] [address] Guicho Thomas, Abdominal pain (Primary Dx); Gastroesophageal reflux disease, unspecified whether esophagitis present; Nausea and vomiting, unspecified vomiting type; Weight loss; Family history of colon cancer; Chronic idiopathic constipation 11/04/2024 Telephone [facility] G[facility]ology at [address], [place] [address] [place] [place] 11/04/2024 Results Follow-Up [facility] Gastroenterology at [address], [place] [address] Guicho Thomas, DO Folate, Iron profile w/ IBC, Vitamin B12, Additional followed-up results: 13 11/04/2024 Orders Only [facility] Gastroenterology at [address], [place] [address] Guicho Thomas, DO Hypokalemia (Primary Dx) 11/04/2024 Telephone [facility] Gastroenterology at [address] [place] [address] Deya Cleary LPN 10/28/2024 Telephone [facility] Gastroenterology at [address] [place] [address] Filomena Braxton from Last 3 [...] on file Legal Sex Female 7:26 AM EDGER SAW OPERATOR Gender Identity Not on file Sexual Orientation Not on file Obstetrics History Last Filed Vital Signs Vital Sign Reading Time Taken Comments Blood Pressure 130/90 11/04/2024 9:03 AM CDT Pulse 119 11/04/2024 9:03 AM CDT Temperature 36.4 C (97.5 F) 01/03/2022 6:14 PM EDGER SAW OPERATOR Respiratory Rate 26 01/03/2022 8:37 PM EDGER SAW OPERATOR Oxygen Saturation 98% 11/04/2024 9:03 AM CDT Inhaled Oxygen Concentration - - Weight 49.5 kg (109 lb 3.2 oz) 11/04/2024 9:03 A M CDT Height 157.5 cm (5' 2) 11/04/2024 9:03 AM CDT Body Mass Index 19.97 11/04/2024 9:03 AM CDT Plan of Treatment Upcoming Encounters Date Type Department Care Team (Latest Contact Info) Description 11/25/2024 9:30 AM CDT Hospital Encounter [facility] [address] [place] [address] Guicho Tohmas DO [address] [facility] [address] [place] [address] 11/25/2024 9:30 AM CDT - 11/25/2024 9:51 AM CDT Surgery [address] [address] Guicho Thomas DO [address] [facility] [address] [place] [address] ESOPHAGOGASTRODUODENOSCOPY Scheduled Procedures Name Priority Associated Diagnoses Date/Ti me ESOPHAGOGASTRODUODENOSCOPY Nausea and vomiting, unspecified vomiting type Gastroesophageal reflux disease, unspecified whether esophagitis present 11/25/2024 9:30 AM CDT Health Maintenance Due Date Last Done Comments Cervical Cancer Screening 1997 HPV Vaccines (2 - 2-dose series) 04/05/2009 10/07/19 09 Pneumococcal vaccine <65 (1 of 2 - PCV) 2016 Depression Screening 12/07/2020 12/08/2019 Regular Well Visit/Exam 18-64 12/07/2020 12/08/2019 Influenza Vaccine (#1) 2024 6, 11/09/2009, 11/15/2007, Additional history exists DTaP/Tdap/Td Vaccine (8 - Td or Tdap) 09/18/2030 09/18/2020, 09/05/2007, 05/30/2001, Additional history exists Varicella Vaccines Discontinued 02/07/2007, 03/29/1998 Hepatitis B Screening Completed 11/04/2024 , 1997, 1997, Additional history exists Hepatitis C Screening Completed 11/04/2024 Procedures Procedure Name Priority Date/Time Associated Diagnosis [...] and vomiting, unspecified vomiting type Weight loss COPPER, SERUM Routine 11/04/2024 10:06 AM CDT Abdominal pain [...] and vomiting, unspecified vomiting type Weight loss HEPATITIS PANEL, ACUTE Routine 11/04/2024 10:06 AM CDT Abdominal pain Gastroesophageal reflux disease, unspecified whether esophagitis present Nausea and vomiting, unspecified vomiting type Weight loss HEPATITIS A ANTIBODY, TOTAL Routine 11/04/2024 10:06 AM CDT Abdominal pain Gastroesophageal reflux disease, unspecified whether esophagitis present Nausea and vomiting, unspecified vomiting type Weight loss HEPATITIS B SURFACE ANTIBODY (IMMUNE STATUS) Routine 11/04/2024 10:06 AM CDT Abdominal pain [...] DO LAB BLOOD ORDERABLES Final Res ult [facility] ([place]) 1 [facility] [place] [address] * Differential, auto (11/04/2024 10:06 AM CDT) [...] Neutrophil pct 75.9 % [facility] ([place]) Comment: Interpretive Data Percent cell count reference [...] revised on 2017. Monocyte pct 7.7 % [facility] ([place]) Comment: Interpretive Data Percent cell [...] revised on 2017. Basophil pct 0.4 % [facility] ([place]) Comment: Interpretive Data Percent cell count reference ranges are not reported, since discordance with absolute values may lead to misinterpretation of CBC data. Current Interpretive Data was last revised on 2017. Blood 11/04/2024 10:0 6 AM CDT 11/04/2024 10:50 AM CDT us Guicho Thomas DO LAB BLOOD ORDERABLES Final Res ult [facility] ([place]) 1 [facility] [place] [address] * Thyroid Function [place] (11/04/2024 10:06 AM CDT) TSH 0.45 0.30 - 4.20 mcIUnit/mL [facility] ([place]) Blood 11/04/2024 10:0 6 AM CDT 11/04/2024 10:50 AM CDT us Guicho Thomas LAB BLOOD ORDERABLES Final Res ult Performing Organization Address City/[facility]/ZIP Co de Phone Number [facility] ([place]) 1 [facility] [place] [address] * (ABNORMAL) Iron profile w/ IBC (11/04/2024 10:06 AM CDT) Iron 48 35 - 145 mcg/dL [facility] ([place]) TIBC 329 250 - 400 mcg/dL [facility] ([place]) Transferrin saturation 15(L) 20 - 50 % [facility] ([place]) Blood 11/04/2024 10:0 6 AM CDT 11/04/2024 10:50 AM CDT Guicho Thomas LAB BLOOD ORDERABLES Final Res ult Performing Organization Address [facility]/ZIP Co de Phone Number [facility] ([place]) 1 [facility] [place] [address] * (ABNORMAL) CBC with auto differential (11/04/2024 [...] NRBC abs 0.00 0.00 - 0.01 K/cumm [facility] ([place]) Blood 11/04/2024 10:0 6 AM CDT 11/04/2024 10:50 AM CDT Guicho Thomas LAB BLOOD ORDERABLES Final Res ult Performing Organization Address [facility] Co de Phone Number [facility] ([place]) 1 [facility] [place] [address] * Copper, serum (11/04/2024 10:06 AM CDT) Copper 99 77 - 206 mcg/dL [place] [facility] Comment: ADDITIONAL INFORMATION This test was developed and its performance characteristics determined by [facility] in a manner consistent with CLIA requirements. This test has not been cleared or approved by the U.S. Food and Drug Administration. Test Performed by: [facility] [place] [address] [place] [address] Diesel Engine Erector: Sondra Miranda Ph.D.; CLIA# [id number] Blood 11/04/2024 10:0 6 AM CDT 11/04/2024 10:50 AM CDT Guicho Thomas LAB BLOOD ORDERABLES Final Res ult Performing Organization Address City/[facility] Co de Phone Number [facility] ([place]) 1 [facility] [place] [address] [place] ref [facility] * (ABNORMAL) Hepatitis A antibody, total Blood (11/04/2024 10:06 AM CDT) Hep A total Reactive( A) Nonreactive Comment:Testing performed by : [facility], 1 [facility], [place]., [address] Blood 11/04/2024 10:0 6 AM CDT 11/04/2024 3:25 PM CDT Guicho Thomas DO LAB MICROBIOLOGY - GENERAL ORD ERABLES Final Result [facility] ([place]) 1 [facility] [place] [address] * Hepatitis panel, acute Blood (11/04/2024 10:06 AM CDT) Hep A IgM Nonreactive Nonreactive Comment: Interpretive Data: If Hep A IgM Ab is reported as Equivocal, a new sample should be drawn in two weeks for testing. Current interpretive data was last revised on 19. Testing performed by: [address] [address] Hep B core IgM Nonreactive Nonreactive [facility] ([place]) Comment: Interpretive Data If HepB Core IgM Ab is reported as Equivocal, a new sample should be drawn in two weeks for testing. Current interpretive data was last revised on 19. Testing performed by: [address] [address] Hep C Ab Nonreactive Nonreactive [facility] ([place]) Comment: Interpretive Data Nonreactive: Antibodies to HCV not detected. Does NOT exclude the possibility of recent exposure to HCV. Equivocal: Equivocal for HCV antibodies. Supplemental molecular testing will be automatically performed to determine infection status in accordance with current CDC screening recommendations. Reactive: Positive for HCV antibodies. This may represent current or past HCV infection. Supplemental molecular testing will be automatically performed to determine current infection status in accordance with current CDC screening recommendations. Interpretive data was last revised on 2019. Testing performed by: [address] [address] HepBsAg Nonreactive Nonreactive [facility] ([place]) Comment:Testing performed by : [address] [address] Blood 11/04/2024 10:0 6 AM CDT 11/04/2024 4:58 PM CDT Guicho T. Klucka DO LAB MICROBIOLOGY - GENERAL ORD ERABLES Final Result [facility] ([place]) 1 [place] [address] * Hepatitis B surface antibody (immune status) Blood (11/04/2024 10:06 AM CDT) HBsAb (immune status) Nonreactive Comment: Interpretive Data Nonreactive: This result is consistent with a lack of immunity to Hepatitis B Virus when used in the setting of routine screening. Equivocal: The immune status of the individual should be further assessed, if appropriate, after consideration of clinical status, risk factors, and additional diagnostic information. Reactive: This result is consistent with immunity to Hepatitis B Virus when used in the setting of routine screening. Current interpretive data was last revised on 19. Testing performed by: [facility], [address] [place] [address]., [address] Blood 11/04/2024 10:0 6 AM CDT 11/04/2024 4:58 PM CDT Guicho Thomas DO LAB MICROBIOLOGY - GENERAL ORD ERABLES Final Result [facility] [place]) 1 [facility] [place] [address] * Protime-INR (11/04/2024 10:06 AM CDT) PT 13.1 10.2 - 13.5 sec [facility] ([place]) INR 1.16 0.90 - 1.20 [facility] ([place]) Comment: Interpretive data Oral anticoagulant therapeutic ranges: Venous thromboembolism prophylaxis or treatment: 2.0-3.0 CARDIOLOGY Standard range: 2.0-3.0 High-intensity range: 2.5-3.5 Refer to indication-specific guidelines for appropriate target ranges for prosthetic heart valve replacement. Current interpretive data was last revised on 2019. Blood 11/04/2024 10:0 6 AM CDT 11/04/2024 10:50 AM CDT Guicho Thomas DO LAB BLOOD ORDERABLES Final Res ult Performing Organization Address City/[facility]/ZIP Co de Phone Number [facility] ([place]) 1 [facility] [place] [address] * CRP (acute phase) (11/04/2024 10:06 AM CDT) CRP <3.0 <=10.0 mg/L [facility] ([place]) Blood 11/04/2024 10:0 6 AM CDT 11/04/2024 10:50 AM CDT Guicho Thomas DO LAB BLOOD ORDERABLES Final Res ult Performing Organization Address [facility] de Phone Number [facility] ([place]) 1 [facility] [place] [address] * TSH (11/04/2024 10:06 AM CDT) Thyroid Stimulating Hormone 0.45 0.30 - 4.20 mcIUnit/mL [facility] ([place]) Blood 11/04/2024 10:0 6 AM CDT 11/04/2024 10:50 AM CDT Guicho Thomas DO LAB BLOOD ORDERABLES Final Res ult Performing Organization Address [facility] Co de Phone Number [facility] ([place]) 1 [facility] [place] [address] * Phosphorus (11/04/2024 10:06 AM CDT) Phosphorus, pl 3.1 2.3 - 4.5 mg/dL [facility] ([place]) Blood 11/04/2024 10:0 6 AM CDT 11/04/2024 10:50 AM CDT Guicho Thomas DO LAB BLOOD ORDERABLES Final Res ult [facility] ([place]) 1 [facility] [place] [address] * Magnesium (11/04/2024 10:06 AM CDT) Magnesium 2.1 1.4 - 2.5 mg/dL [facility] ([place]) Blood 11/04/2024 10:0 6 AM CDT 11/04/2024 10:50 AM CDT Guicho Thomas DO LAB BLOOD ORDERABLES Final Res ult Performing Organization Address City/[facility]/ZIP Co de Phone Number [facility] ([place]) 1 [facility] [place] [address] * Folate (11/04/2024 10:06 AM CDT) Folic acid 16.6 >=5.0 ng/mL [facility] ([place]) Blood 11/04/2024 10:0 6 AM CDT 11/04/2024 10:50 AM CDT Guicho Thomas DO LAB BLOOD ORDERABLES Final Res ult Performing Organization Address City/[facility]/ZIP Co de Phone Number [facility] ([place]) 1 [facility] [place] [address] * Ferritin (11/04/2024 10:06 AM CDT) Ferritin 74 13 - 150 ng/mL [facility] ([place]) Blood 11/04/2024 10:0 6 AM CDT 11/04/2024 10:50 AM CDT Guicho Thomas DO LAB BLOOD ORDERABLES Final Res ult [facility] ([place]) 1 [facility] [place] [address] * (ABNORMAL) Vitamin B12 (11/04/2024 10:06 AM CDT) Vitamin B12 1,461(H) 230 - 1,250 pg/mL [facility] ([place]) Blood 11/04/2024 10:0 6 AM CDT 11/04/2024 10:50 AM CDT Guicho Thomas DO LAB BLOOD ORDERABLES Final Res ult [facility] ([place]) 1 [facility] [place] [address] * (ABNORMAL) Hepatic function panel (11/04/2024 10:06 [...] Final Res ult [facility] ([place]) 1 [facility] [place] [address] * (ABNORMAL) Lipid panel (11/04/2024 10:06 AM CDT) Cholesterol 132 30 - 199 mg/dL [facility] ([place]) Comment: Interpretive Data Ages < [...] on 2017. Triglycerides 86 <=149 mg/dL [facility] [place]) Comment: Interpretive Data Ages < or = [...] on 2017. HDL 37(L) >=40 mg/dL [facility] [place]) Comment: Interpretive Data Ages < or = [...] 2017. LDL, calculated 78 <=129 mg/dL [facility] [place]) Comment: Interpretive Data Ages < or = 19 years Acceptable: <110 mg/dL Borderline high: 110-129 mg/dL High: >or= 130 mg/dL Ages > or = 20 years Optimal: <100 mg/dL Near optimal: 100-129 mg/dL Borderline high: 130-159 mg/dL High: >160 mg/dL Calculated using the Lemus LDL-C estimating equation. This equation was implemented [...] last revised on 2023. Testing performed by: [place], [address] Non-HDL Cholesterol 95 mg/dL [facility] ([place]) Comment: Interpretive Data Ages < or = [...] last revised on 2017. Testing performed by: [place], [address] Chol/HDL ratio 4 [facility]ime [facility] ([place]) Comment:Testing performed by : [place], [address] Blood 11/04/2024 10:0 6 AM CDT 11/04/2024 10:50 AM CDT us Guicho Thomas DO LAB BLOOD ORDERABLES Final Res ult [facility] ([place]) 1 [facility] [place] [address] * (ABNORMAL) Basic metabolic panel (11/04/2024 10:06 AM CDT) Sodium 135 135 - 145 mmol/L [facility] ([place]) Potassium, pl 3.0(C) 3.3 - 4.9 mmol/L [facility] ([place]) Comment:Critical Result call ed by [email or web address] at 2024-11-04 12:43:32. Result Read Back by [...] Final Res ult [facility] ([place]) 1 [facility] [place] [address] from Last [address] [place] [address] Care Teams Access Specialist Relationship Specialty Start Date End Date Jesús Yates MD PCP - General Family Medicine 12/11/19
--- OUTSIDE RECORDS SUMMARY | 2024-11-10 01:15 | XMS_ITS | Encounter Summary ---
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 Gender Identity Not on file Sexual Orientation Not on file documented as of this encounter Functional Status documented as of this encounter Miscellaneous Notes * Result Encounter Note - August Walker MA - 11/04/2024 1:04 PM CDT Pt notified documented in this encounter Plan of Treatment Upcoming Encounters Date Type Department Care Team (Latest Contact Info) Description 11/25/2024 9:30 AM CDT Hospital Encounter [address] [address] Guicho Thomas, DO [address] [facility] [address] [place] [address] 11/25/2024 9:30 AM CDT - 11/25/2024 9:51 AM CDT Surgery [address] [address] Guicho Thomas, [address] [facility] [address] [place] [address] ESOPHAGOGASTRODUODENOSCOPY Scheduled Procedures Name Priority Associated Diagnoses Date/Ti me ESOPHAGOGASTRODUODENOSCOPY Nausea and vomiting, unspecified vomiting type Gastroesophageal reflux disease, unspecified whether esophagitis present 11/25/2024 9:30 AM CDT documented as of this encounter Visit Diagnoses Not on filedocumented in this encounter Care Teams Negotiations Director Relationship Specialty Start Date End Date Jesús Yates MD PCP - General Family Medicine 12/11/19 documented as of this encounter
--- OUTSIDE RECORDS SUMMARY | 2024-11-10 01:15 | XMS_ITS | Clinical Summary ---
Author Organization [facility] Address [address] [place] [address] Phone Care Team Providers Care Bar Turner Name Role Phone Provider, None Primary Care [...] on file Legal Sex Female 10:42 PM DAIRY CHEMIST Gender Identity Not on file Sexual Orientation Not on file Occupation Industry Job Start Date Job End Date Unemployed Not on file Not on file Not on file Last Filed Vital Signs Vital Sign Reading Time Taken Comments Blood Pressure 111/67 04/12/2021 2:15 PM DAIRY CHEMIST Pulse 82 04/12/2021 2:44 PM DAIRY CHEMIST Temperature 36.5 C (97.7 F) 04/12/2021 9:07 AM DAIRY CHEMIST Respiratory Rate 20 04/12/2021 2:44 PM DAIRY CHEMIST Oxygen Saturation 100% 04/12/2021 2:44 PM DAIRY CHEMIST Inhaled Oxygen Concentration - - Weight 51.3 kg (113 lb) 04/12/2021 9:07 AM DAIRY CHEMIST Height 157.5 cm (5' 2) 04/12/2021 9:07 AM DAIRY CHEMIST Body Mass Index 20.67 04/12/2021 9:07 AM DAIRY CHEMIST Plan of Treatment Health Maintenance Due Date [...] age to complete this topic Insurance MEDICAID [facility] Care Teams Bar Turner Relationship Specialty Start Date End Date Provider, None [place] PCP - General 11/24/18
--- OUTSIDE RECORDS SUMMARY | 2024-11-10 01:15 | XMS_ITS | Patient Health Record ---
Author Organization [facility] Address [address] [place] [address] Care Team Providers Care Acid Plant Helper Name Role Phone Amadeo Vallesn Unavailable [phone] Nevin Bowling Unavailable [phone] Allergies Allergen (clinical drug ingredient) Drug/Non Drug Allergy documented on EMR Reaction Allergy Type Onset Date Status metoclopramide Reglan Unknown Drug Allergy Ac tive Compazine Unknown Drug Allergy Active Reason For Referral No Information Medications Medication SIG (Take, Route, Frequency, Duration) Notes Start Date End Date Status cloNIDine HCl 0.1 MG Tablet 1 tablet Orally Once a day Not-Taking Promethazine HCl [address] 25 MG RECTALLY EVERY 6 HOURS NEEDED FOR NAUSEA AND VOMITING Rectal; Duration: 3 Days Active Propranolol HCl 10 MG Tablet 1 tablet on an empty stomach Orally three time daily as needed for heart rate over 90 bpm; Duration: 30 days 10/27/2024 Active Social History Section Notes: VAPE Problems Problem Type SNOMED Code ICD Code Onset Dates Problem Status W/U Status Risk Notes Problem Thyrotoxicosis (14460569) 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 Valles [address] [place] [address] 10/27/2024 Kimber Valles Other thyrotoxicosi s without thyrotoxic crisis or storm E05.80 ; Abnormal weight loss R63.4 ; Irregular menstruation, unspecified N92.6 ; Palpitations R00.2 and Loose stools R19.[address] Valles [address] [place] [address] 10/30/2024 Kimber Valles Assessments Encounter Date Diagnosis (ICD Code) Assessment Notes Treatment Notes Treatment Clinical Notes Section Notes 10/27/2024 Other thyrotoxicosis without thyrotoxic crisis or storm (ICD-10 - E05.80) 10/27/2024 Abnormal weight loss (ICD-10 - R63.4) 10/27/2024 Irregular menstruation, unspecified (ICD-10 - N92.6) 10/27/2024 Palpitations (ICD-10 - R00.2) 10/27/2024 Loose stools (ICD-10 - R19.5) 10/27/2024 Domonique Leonard, a female patient with a history of two pregnancies and recent hospitalization, presents with severe nausea and vomiting for 2 weeks, significant weight loss, and irregular menstrual cycles. Nausea and VomitingAssessment: Patient reports severe nausea and vomiting for the past 2 weeks, resulting in hospitalization and significant weight loss (from 140 lbs to 115 lbs). Unable to tolerate solid foods, only liquids. Differential diagnoses include acute thyroiditis, autoimmune disorder, or potential withdrawal from recent cessation of long-term THC use. Previous gastrointestinal workups, including colonoscopies and endoscopies, have been unremarkable. History of hyperemesis gravidarum during pregnancies. Recent thyroid labs were abnormal, but specific values are unclear. No signs of thyroid storm or severe thyrotoxicosis on examination.Plan:- Order repeat thyroid function tests- Order stool study to assess enzyme production for food absorption- Prescribe propranolol 10 mg PO q6-8h PRN for tachycardia (max 20 mg per dose) - Instruct patient to monitor heart rate and avoid taking if HR under 70 bpm - Informed patient of potential side effect of wheezing due to history of asthma- Continue promethazine as prescribed for nausea- Recommend small, frequent meals and protein shakes as tolerated- Advise to maintain hydration with water intake- Follow up with telehealth visit after lab results are available- Instruct patient to call if vomiting persists Suspected Thyroid DysfunctionAssessme nt: Patient reports family history of thyroid disorders, including Graves' disease and Surinder's. Recent thyroid labs were abnormal, but specific values are unclear. No apparent thyroid enlargement or eye involvement on examination. Symptoms of tachycardia and blood pressure fluctuations may be related to thyroid dysfunction, but could also be due to recent cessation of long-term THC use.Plan:- Order repeat thyroid function tests, including TSH, free T4- Consider methimazole if T4 is elevated, confirming hyperthyroidism- Follow up with telehealth visit to discuss results and treatment plan Irregular Menstrual CyclesAssessment: Patient reports heavier and more painful periods recently. Current cycle started on the 6th, ended last week, and started again yesterday, indicating irregularity.Plan:- Monitor menstrual cycle patterns- Consider further evaluation if irregularities persist Recent THC CessationAssessment : Patient reports long-term THC use, which was stopped 2 weeks ago when current symptoms began. Possibility of withdrawal contributing to current symptoms, although patient notes that smoking now increases nausea.Plan:- Monitor for improvement of symptoms over time as body adjusts to chemical changes- Educate patient on potential withdrawal symptoms and their duration Tachycardia and Blood Pressure FluctuationsAssessm ent: Patient reports consistently elevated heart rate (above 90 bpm) and fluctuating blood pressure (ranging from 99 to 131/123). These symptoms could be related to thyroid dysfunction, recent THC cessation, or anxiety.Plan:- Prescribe propranolol 10 mg PO q6-8h PRN for tachycardia (max 20 mg per dose) - Instruct patient to monitor heart rate and avoid taking if HR under 70 bpm- Monitor blood pressure and heart rate at follow-up visits- Reassess need for blood pressure medication after thyroid function is stabilized Spent 30 minutes preparing to see the patient (ex review of tests/chart), obtaining and / or reviewing separately obtained history, performing a medically appropriate examination and/or evaluation, counseling and educating the patient/family/career information specialist, ordering medications, tests, or procedures, referring and communicating with other health animal caregiver, documenting clinical information in the electronic or other health record, independently interpreting results and communicating results to the patient/family/career information specialist and care coordinating patient plan. Patient alert and oriented x 4 and aware of discussion noted above and in agreeance to plan in management of abnormal thyroid studies, likely THC withdrawal, weight loss and irregular menses/loose stools and need to r/o underlying graves hyperthyroidism vs thyroiditis. Plan Of Treatment No Information Medical (General) History Medical History History ICD Code Cannabinoid Hyperemesis Syndrome (CHS) COLONOS[facility] Hospitalization History Reason Date(Month/Year) Endoscopy
--- OUTSIDE RECORDS SUMMARY | 2024-11-10 01:15 | XMS_ITS | Clinical Summary ---
Author Organization [facility] Address [address] [place] [address] Care Team Providers Care Cigar Packer And Sorter Name Role Phone Jordyn Michel Primary Care Provider [phone] Allergies Active Allergy Reactions Criticality Noted Date [...] Type Department Care Team Description 10/21/2024 Telephone [facility] Family & Internal Medicine [address] [phone] Jordyn Michel FNP TCM 10/19/2024 2:14 PM CDT - 10/19/2024 4:33 PM CDT Emergency [facility] [place] [address] Kevin Conklin MD Abdominal Pain Discharge Disposition: Home or Self Care (Routine Discharge) 10/19/2024 Travel 10/15/2024 6:51 AM CDT - 10/17/2024 11:00 AM CDT Hospital Encounter [facility] [place] [address] Coy Doll MD Suresh, Aditya Krishna, MD [...] from your doctor or pharmacy? Never 10/15/2024 [facility] Utilities Answer Date Recorded In the past 12 months has [facility] [email or web address], gas, oil, or water [employer] threatened to shut off services in your [...] often do you attend chur ch or protestant services? Never 10/15/2024 Do you belong to any clubs o r organizations such as yazidi groups, unions, fraternal or athletic groups, or [...] Recorded Patient Health Questionnaire-2 Score 0 10/15/2024 [facility] Answer Date [...] any time in the past 12 m [facility], were you homeless or living in a residential (including now)? No 10/15/2024 Comments No Sex [...] C 2015 COVID-19 Vaccine ( season) 2024 Influenza Adult (#1) 2024 11/29/2015, 11/09/2009, 02/08/2009, Additional history exists DTaP, Tdap and Td Vaccines (8 - Td or Tdap) 09/18/2030 09/18/2020, 09/05/2007, 05/30/2001, Additional history exists Hepatitis B Vaccines Completed 1997, 1997, 1997 Meningococcal Vaccine Completed 12/01/2015, 009 PHQ-2 (Physician Native) Completed 10/15/2024 Meningococcal B Vaccine Aged Out [...] is included. 10/19/2024 2:44 PM CDT Narrative [facility] - 10/19/2024 5:55 PM CDT [facility] [address] Test Date: 2024-10-19 Pat Name: GIANNA CUEVAS Department: 41 Room: EXAM25 Gender: Female Sidewalk Inspector: [id number] : 1995 Requested By: NICOLE QUEVEDO Order Number: [id number] Reading MD: Gayle Cummins Measurements Intervals [place] Rate: 82 P: 73 MT: 151 QRS: -76 QRSD: 86 T: 34 [...] Procedure Note Gayle Cummins MD - 10/19/[address] [facility] [address] Test Date: 2024-10-19 Pat Name: GIANNA CUEVAS Department: 41 Room: EXAM25 Gender: Female Sidewalk Inspector: [id number] : 1995 Requested By: NICOLE QUEVEDO Order Number: [id number] Reading MD: Araujo Cummins Measurements Intervals [place] Rate: 82 P: 73 MT: 151 QRS: -76 QRSD: 86 T: 34 [...] present Nicole العراقي ECG ORDERABLES Final Result [facility] ([facility] RAD * XR CHEST PORTABLE (10/19/2024 2:37 PM CDT) Anatomical Region Laterality Modality Chest Radiographic Geovanna ging 10/19/2024 2:41 PM CDT Impressions 10/19/2024 2:48 PM CDT IMPRESSION: No acute pulmonary findings. Referred By: Interpreted By: Sarkis Mendez MD, 10/19/2024 2:41 PM Narrative 10/19/2024 2:[address] PM [address] [address] Examination: XR CHEST PORTABLE Exam time: 10/19/2024 2:28 PM Indication: Dizziness Comparison: None Findings: Upright AP view of the chest was obtained. The heart size is normal. No vascular congestion. No airspace consolidation, pleural effusion, or pneumothorax. Procedure Note Sarkis Mendez MD - 10/19/[address] [address] Examination: XR CHEST PORTABLE Exam time: 10/19/2024 [...] URINE CLEAN CATCH 10/19/2024 2:33 PM CDT [facility] COLOR (U) YELLOW 10/19/2024 2:52 PM CDT [facility] TRANSPARENCY TURBID 10/19/2024 2:52 PM CDT [facility] SPECIFIC GRAVITY (U) 1.025 1.001 - 1.030 10/19/2024 2:52 PM CDT [facility] U PH 6.0 5.0 - 9.0 10/19/2024 2:52 PM CDT [facility] LEUKOCYTES (U) 75(A) NEGATIVE 10/19/2024 2:52 PM CDT [facility] NITRITES NEGATIVE NEGATIVE 10/19/2024 2:52 PM CDT [facility] PROTEIN RANDOM (U) 50(H) <30 MG/DL 10/19/2024 2:52 PM CDT [facility] GLUCOSE (U) NORMAL NORMAL MG/DL 10/19/2024 2:52 PM CDT [facility] KETONES MG/DL (U) NEGATIVE NEGATIVE MG/DL 10/19/2024 2:52 PM CDT [facility] UROBILINOGEN 2.0(A) NORMAL MG/DL 10/19/2024 2:52 PM CDT [facility] BILIRUBIN (U) NEGATIVE NEGATIVE MG/DL 10/19/2024 2:52 PM CDT [facility] BLOOD (U) 3+(A) NEGATIVE 10/19/2024 2:52 PM CDT [facility] MUCUS MANY /LPF 10/19/2024 2:52 PM CDT [facility] WBC/HPF 11(H) <6 /HPF 10/19/2024 2:52 PM CDT [facility] RBC/HPF 18(H) <6 /HPF 10/19/2024 2:52 PM CDT [facility] CA OXALATE CRYSTALS RARE /HPF 10/19/2024 2:52 PM CDT [facility] SQUAMOUS EPITHELIALS MANY /HPF 10/19/2024 2:52 PM CDT [facility] URINE SPECIMEN OBTAINED BY CLEAN CATCH PROCEDURE / Unknown 10/19/2024 2:17 PM CDT us Nicole العراقي URINE ORDERABLES Final Resul t [facility] [address] [place] [address], [place] [phone] * (ABNORMAL) COMPREHENSIVE METABOLIC PANEL (10/19/2024 2:17 PM CDT) Only the most recent of2 resultswithin the time period is included. [facility] GLUCOSE 115(H) 70 - 99 MG/DL 10/19/2024 3:18 PM CDT [facility] BUN 9 7 - 18 MG/DL 10/19/2024 3:18 PM CDT [facility] CREATININE S/P/B 0.90 0.55 - 1.02 MG/DL 10/19/2024 3:18 PM CDT [facility] SODIUM S/P/B 133(L) 136 - 145 MMOL/L 10/19/2024 3:18 PM CDT [facility] POTASSIUM S/P/B 3.8 3.5 - 5.1 MMOL/L 10/19/2024 3:18 PM CDT [facility] CHLORIDE S/P/B 101 97 - 115 MMOL/L 10/19/2024 3:18 PM CDT [facility] CO2 25.7 21 - 32 MMOL/L 10/19/2024 3:18 PM CDT [facility] CALCIUM S/P/B 9.9 8.5 - 10.1 MG/DL 10/19/2024 3:18 PM CDT [facility] BILIRUBIN TOTAL S/P/B 0.9 0.2 - 1.2 MG/DL 10/19/2024 3:18 PM CDT [facility] Comment: THIS ASSAY IS NOT RECOMMENDED FOR PATIENTS UNDERGOING TREATMENT WITH ELTROMBOPAG DUE TO THE POTENTIAL FOR FALSELY ELEVATED RESULTS. TOTAL PROTEIN S/P/B 7.9 6.4 - 8.2 G/DL 10/19/2024 3:18 PM CDT [facility] ALBUMIN S/P/B 4.6 3.4 - 5.0 G/DL 10/19/2024 3:18 PM CDT [facility] AST 28 15 - 37 U/L 10/19/2024 3:18 PM CDT [facility] ALT 175(H) 14 - 55 U/L 10/19/2024 3:18 PM CDT [facility] ALKALINE PHOSPHATASE S/P/B 78 50 - 136 U/L 10/19/2024 3:18 PM CDT [facility] ANION GAP 6.3 2 - 10 MMOL/L 10/19/2024 3:18 PM CDT [facility] BUN CREATININE RATIO 9.9 6 - 26 10/19/2024 3:18 PM CDT [facility] A/G RATIO 1.4 1.0 - 2.0 RATIO 10/19/2024 3:18 PM CDT [facility] GFR ESTIMATE 90(L) >90 ML/MIN/1.7 3 M2 10/19/2024 3:18 PM CDT [facility] Comment: NOTE: eGFR is not calculated for patients <18 years of age or gender unknown. This is an estimated GFR calculation using the new CKD EPI creatinine equation without race and so does not require a correction factor for race. This estimated GFR should not be used for calculating drug doses. 10/19/2024 2:17 PM CDT Nicole العراقي LABORATORY Final Result [facility] [address] [place] [address], * (ABNORMAL) CBC W/DIFF AUTOMATED (10/19/2024 2:17 PM CDT) Only the most recent of3 resultswithin the time period is included. WBC 10.43 4.5 - 11.0 x10'3/uL 10/19/2024 2:40 PM CDT [facility] RBC 4.97 4.20 - 5.40 x10'6/uL 10/19/2024 2:40 PM CDT [facility] HGB 15.1 12.0 - 16.0 G/DL 10/19/2024 2:40 PM CDT [facility] HCT 43.3 38.0 - 48.0 % 10/19/2024 2:40 PM CDT [facility] MCV 87.1 81.0 - 99.0 FL 10/19/2024 2:40 PM CDT [facility] MCH 30.4 27.0 - 31.0 PG 10/19/2024 2:40 PM CDT [facility] MCHC 34.9 32.0 - 36.0 G/DL 10/19/2024 2:40 PM CDT [facility] RDW 11.9 11.5 - 14.5 % 10/19/2024 2:40 PM CDT [facility] PLT 287 130 - 400 x10'3/uL 10/19/2024 2:40 PM CDT [facility] MPV 12.2 9.3 - 12.2 FL 10/19/2024 2:40 PM CDT [facility] DIFFERENTIAL TYPE AUTOMATED DIFFERENTIAL 10/19/2024 2:40 PM CDT [facility] NEUTROPHILS % 69.6 % 10/19/2024 2:40 PM CDT [facility] LYMPHOCYTES % 19.8 % 10/19/2024 2:40 PM CDT [facility] MONOCYTES % 8.5 % 10/19/2024 2:40 PM CDT [facility] EOSINOPHILS 1.3 % 10/19/2024 2:40 PM CDT [facility] BASOPHILS 0.5 % 10/19/2024 2:40 PM CDT [facility] IMMATURE GRANS % 0.3 % 10/20/19 2:40 PM CDT [facility] ABS. NEUTROPHILS 7.25 1.80 - 7.70 x10'3/uL 10/19/2024 2:40 PM CDT [facility] ABS. LYMPHOCYTES 2.07 1.00 - 4.80 x10'3/uL 10/19/2024 2:40 PM CDT [facility] ABS. MONOCYTES 0.89(H) 0.24 - 0.86 x10'3/uL 10/19/2024 2:40 PM CDT [facility] ABS. EOSINOPHILS 0.14 0.04 - 0.36 x10'3/uL 10/19/2024 2:40 PM CDT [facility] ABS. BASOPHILS 0.05 0.01 - 0.08 x10'3/uL 10/19/2024 2:40 PM CDT [facility] ABS. IMMATURE GRANULOCYTES 0.03 0.00 - 0.49 x10'3/uL 10/19/2024 2:40 PM CDT [facility] 10/19/2024 2:17 PM CDT Nicole العراقي LABORATORY Final Result [facility] [address] [place] [address], * TROPONIN, QUANT (10/19/2024 2:17 PM CDT) TROPONIN I HIGH SENSITIVITY <3 <54 ng/L 10/19/2024 3:18 PM CDT [facility] Comment: HIGH DOSES OF BIOTIN, TROPONIN-SPECIFIC AUTOANTIBODIES, AND ANTIBODY THERAPY CONTAINING HAMA MAY INTERFERE WITH THIS TEST RESULT. CORRELATION TO CLINICAL HISTORY AND PRESENTATION RECOMMENDED. 10/19/2024 2:17 PM CDT Nicole العراقي LABORATORY Final Result [facility] [address] [place] [address], [place] [phone] * LIPASE (10/19/2024 2:17 PM CDT) Pathologist [facility] LIPASE 20 13 - 75 UNITS/L 10/19/2024 3:18 PM CDT [facility] 10/19/2024 2:17 PM CDT Nicole العراقي LABORATORY Final Result Performing Organization Address City/[facility]/ZIP Co de Phone Number [facility] [address] [place] [address], [place] [phone] * (ABNORMAL) BASIC METABOLIC PANEL (10/17/2024 4:23 AM CDT) Only the most recent of3 resultswithin the time period is included. Pathologist [facility] GLUCOSE 124(H) 70 - 99 MG/DL 10/17/2024 5:32 AM CDT [facility] BUN 5(L) 7 - 18 MG/DL 10/17/2024 5:32 AM CDT [facility] CREATININE S/P/B 0.57 0.55 - 1.02 MG/DL 10/17/2024 5:32 AM CDT [facility] SODIUM S/P/B 135(L) 136 - 145 MMOL/L 10/17/2024 5:32 AM CDT [facility] POTASSIUM S/P/B 3.4(L) 3.5 - 5.1 MMOL/L 10/17/2024 5:32 AM CDT [facility] CHLORIDE S/P/B 103 97 - 115 MMOL/L 10/17/2024 5:32 AM CDT [facility] CO2 27.2 21 - 32 MMOL/L 10/17/2024 5:32 AM CDT [facility] CALCIUM S/P/B 9.4 8.5 - 10.1 MG/DL 10/17/2024 5:32 AM CDT [facility] ANION GAP 4.8 2 - 10 MMOL/L 10/17/2024 5:32 AM CDT [facility] BUN CREATININE RATIO 8.8 6 - 26 10/17/2024 5:32 AM CDT [facility] GFR ESTIMATE >90 >90 ML/MIN/1.7 3 M2 10/17/2024 5:32 AM CDT [facility] Comment: NOTE: eGFR is not calculated for patients <18 years of age or gender unknown. This is an estimated GFR calculation using the new CKD EPI creatinine equation without race and so does not require a correction factor for race. This estimated GFR should not be used for calculating drug doses. 10/17/2024 4:23 AM CDT us Rick Cerna MD LABORATORY Final R esult [facility] [address] [place] [address], * (ABNORMAL) CBC, AUTO, NO DIFF (10/17/2024 4:23 AM CDT) WBC 9.21 4.5 - 11.0 x10'3/uL 10/17/2024 6:02 AM CDT [facility] RBC 4.70 4.20 - 5.40 x10'6/uL 10/17/2024 6:02 AM CDT [facility] HGB 14.6 12.0 - 16.0 G/DL 10/17/2024 6:02 AM CDT [facility] HCT 41.0 38.0 - 48.0 % 10/17/2024 6:02 AM CDT [facility] MCV 87.2 81.0 - 99.0 FL 10/17/2024 6:02 AM CDT [facility] MCH 31.1(H) 27.0 - 31.0 PG 10/17/2024 6:02 AM CDT [facility] MCHC 35.6 32.0 - 36.0 G/DL 10/17/2024 6:02 AM CDT [facility] RDW 11.7 11.5 - 14.5 % 10/17/2024 6:02 AM CDT [facility] PLT 276 130 - 400 x10'3/uL 10/17/2024 6:02 AM CDT [facility] MPV 12.6(H) 9.3 - 12.2 FL 10/17/2024 6:02 AM CDT [facility] 10/17/2024 4:23 AM CDT us Rick Cerna MD LABORATORY Final R esult [facility] [address] [place] [address], [place] [phone] * PHOSPHORUS, INORGANIC PHOSPHATE (10/17/2024 4:23 AM CDT) Only the most recent of4 resultswithin the time period is included. PHOSPHORUS 2.5 2.5 - 4.9 MG/DL 10/17/2024 5:32 AM CDT [facility] 10/17/2024 4:23 AM CDT Rick Cerna MD LABORATORY Final R esult [facility] [address] [place] [address], [place] [phone] * PREG TEST SERUM (HCG QUALITATIVE) (10/16/2024 11:14 AM CDT) Pathologist [facility] PREG SCREEN-SERUM NEGATIVE 10/16/2024 11:37 AM CDT [facility] 10/16/2024 11:1 4 AM CDT Rick Cerna MD LABORATORY Final R esult Performing Organization Address City/[facility]/ZIP Co de Phone Number [facility] [address] [place] [address], [place] [phone] * MAGNESIUM (10/16/2024 4:40 AM CDT) Only the most recent of2 resultswithin the time period is included. Pathologist [facility] MAGNESIUM 2.2 1.8 - 2.4 MG/DL 10/16/2024 5:50 AM CDT [facility] 10/16/2024 4:40 AM CDT Mere Mckeon NP LABORATORY Final Result [facility] [address] [place] [address], [place] [phone] * (ABNORMAL) DRUG SCREEN RAPID (10/15/2024 8:57 AM CDT) Pathologist [facility] AMPHETAMINE (U) NEGATIVE NEGATIVE 12:39 PM CDT [facility] BARBITURATES SCREEN (U) NEGATIVE NEGATIVE 10/15/2024 12:39 PM CDT [facility] BENZODIAZEPINES SCREEN (U) NEGATIVE NEGATIVE 10/15/2024 12:39 PM CDT [facility] CANNABINOIDS SCREEN (U) POSITIVE(A) NEGATIVE 10/15/2024 12:39 PM CDT [facility] COCAINE METABOLITES (U) NEGATIVE NEGATIVE 10/15/2024 12:39 PM CDT [facility] METHADONE (U) NEGATIVE NEGATIVE 10/15/2024 12:39 PM CDT [facility] OPIATE SCREEN (U) NEGATIVE NEGATIVE 025 12:39 PM CDT [facility] PHENCYCLIDINE PCP (U) NEGATIVE NEGATIVE 10/15/2024 12:39 PM CDT [facility] Comment: NOTE: RESULTS OF THIS DRUG SCREEN SHOULD BE USED FOR MEDICAL PURPOSES ONLY AND NOT FOR LEGAL OR EMPLOYMENT PURPOSES. POSITIVE RESULTS ARE NOT CONFIRMED. MEDICATIONS CONTAINING EPHEDRINE MAY CAUSE FALSE POSITIVE AMPHETAMINE CALL [phone], LAB, TO REQUEST CONFIRMATION TESTING. IF CREATININE IS <40 mg/dL. RECOLLECTION IS SUGGESTED. AMPHETAMINE- 500 NG/ML BARBITURATE- 200 NG/ML BENZODIAZEPINES- 200 NG/ML THC- 50 NG/ML COCAINE- 150 NG/ML METHADONE- 300 NG/ML OPIATE- 300 MG/ML PCP- 25 NG/ML CREATININE (U) 80.4 28 - 217 MG/DL 10/15/2024 12:39 PM CDT [facility] URINE SPECIMEN / Unknown 10/15/2024 8:57 AM CDT us Mere Mckeon NP URINE ORDERABLES Final Result [facility] [address] [place] [address], [place] [phone] * (ABNORMAL) Urinalysis, Auto, Complete (10/15/2024 8:57 AM CDT) SPECIMEN TYPE URINE CLEAN CATCH 10/15/2024 8:52 AM T [facility] COLOR (U) COLORLESS 10/15/2024 9:09 AM CDT [facility] TRANSPARENCY CLEAR 10/15/2024 9:09 AM T [facility] SPECIFIC GRAVITY (U) 1.048(H) 1.001 - 1.030 10/15/2024 9:09 AM T [facility] U PH 7.0 5.0 - 9.0 10/15/2024 9:09 AM T [facility] LEUKOCYTES (U) NEGATIVE NEGATIVE 10/15/2024 9:09 AM T [facility] NITRITES NEGATIVE NEGATIVE 10/15/2024 9:09 AM T [facility] PROTEIN RANDOM (U) NEGATIVE <30 MG/DL 10/15/2024 9:09 AM T [facility] GLUCOSE (U) NORMAL NORMAL MG/DL 10/15/2024 9:09 AM T [facility] KETONES MG/DL (U) 80(A) NEGATIVE MG/DL 10/15/2024 9:09 AM T [facility] UROBILINOGEN NORMAL NORMAL MG/DL 10/15/2024 9:09 AM T [facility] BILIRUBIN (U) NEGATIVE NEGATIVE MG/DL 10/15/2024 9:09 AM T [facility] BLOOD (U) 3+(A) NEGATIVE 10/15/2024 9:09 AM T [facility] MUCUS RARE /LPF 10/15/2024 9:09 AM T [facility] WBC/HPF 1 <6 /HPF 10/15/2024 9:09 AM CDT [facility] RBC/HPF 9(H) <6 /HPF 10/15/2024 9:09 AM CDT [facility] SQUAMOUS EPITHELIALS RARE /HPF 10/15/2024 9:09 AM CDT [facility] URINE SPECIMEN OBTAINED BY CLEAN CATCH PROCEDURE / Unknown 10/15/2024 8:57 AM CDT us Coy Doll MD URINE ORDERABLES Alina l Result [facility] [address] [place] [address], * CT ABD+PEL W CON (10/15/2024 8:40 AM CDT) Anatomical Region Laterality Modality Abdomen Computed Tomogra phy 10/15/2024 8:49 AM CDT Impressions 10/15/2024 8:57 AM CDT =====IMPRESSION:===== No acute abnormality is demonstrated. Ordered By: COY DOLL Interpreted By: Coy Vazquez MD, 10/15/2024 8:49 AM Narrative 10/15/2024 8:57 AM CDT [facility] [address] [place], [place] [address] EXAMINATION: CT Abdomen and Pelvis with contrast [...] Procedure Note Coy Vazquez MD - 10/15/[address] [address] EXAMINATION: CT Abdomen and Pelvis with contrast [...] By: Coy Vazquez MD, 10/15/2024 8:49 AM oCy Doll MD CT Final Result * PROCALCITONIN (PCT) (10/15/2024 7:11 AM CDT) PROCALCITONIN <0.05 0.00 - 0.49 NG/ML 10/15/2024 2:37 PM CDT [facility] 10/15/2024 7:11 AM CDT us Mere Mckeon [employer] LABORATORY Final Result [facility] [address] [place] [address], [place] [phone] from Last 3 Months Insurance Advance Directives * Full Code (Latest Code Status on File) Date Activated Date Inactivated Comments 10/15/2024 11:57 AM 10/17/2024 1:13 PM * Full Code Date Activated Date Inactivated Comments 04/29/2021 6:21 PM 04/30/2021 5:56 PM Care Teams [employer] Packer [employer] Sorter Relationship Specialty Start Date End Date Jordyn Michel FNP [address] [place] [id number] PCP - General Nurse Practitioner Family 04/30/21
[2024-11-10 07:00] VITALS: BP 98/68; PULSE 56; RESP 18; TEMP 36.7; O2SAT 99
[2024-11-10] MEDS: LACTATED RINGERS 1,000 ML 30 ML IV CONT (07:24)
[2024-11-10] MEDS: ACETAMINOPHEN 500 MG TABLET 1000 MG PO (07:25)
--- NOTE | 2024-11-10 07:29 | WPDHPUPDATE1 ---
History and Physical Update Update Date/Time: 11/10/24 07:29 History and Physical has been reviewed, including an updated exam of the patient. There are NO changes in the patient's condition. Risks, benefits, and alternatives have been discussed and questions answered. Patient agrees to proceed with procedure.
--- NOTE | 2024-11-10 07:29 | PM.HPGS ---
History of Present Illness History of Present Illness Consent: Risks, benefits, and alternatives have been discussed and questions answered. Patient agrees to proceed with procedure. Chief complaint: Menorrhagia Narrative: Aisha Ceuvas is a 29 year old female with very heavy bleeding. The patient was changing multiple pads in an hour and passing clots for the last 3 months. It was recommended to undergo D and C hysteroscopy. Risks of infection, bleeding, and perforation are reviewed. Possible pathology is discussed. Patient voices understanding and agrees to proceed. Review of Systems Review of Systems: not repeated day of surgery; patient states no changes in status [facility] Past Medical History Medical History (Updated 11/10/24 @ 07:32 by Divya Patel MD) (normal spontaneous vaginal delivery) 2020-severe hyperemesis, preeclampsia 2023 Anxiety Asthma childhood only Surgical History Surgical History (Updated 11/10/24 @ 07:31 by Divya Patel MD) History of bilateral tubal ligation In 2023 bilateral salpingectomies History of tympanostomy Family History Family History Father Alive and well Colon cancer Mother Alive and well Sibling Brain tumor Social History Social History Smoking packs per day: 0.5 Smoking cigarettes per day: 10.0 Years smoked: 10 Smoking pack-years: 5.00 Smoking status: Current every day smoker Tobacco type: cigarettes and e-cigarettes/vaping Second hand tobacco smoke exposure: Yes Smoking end date: 01/06/20 Additional smoking assessment comments: HAS BEEN SMOKING PUFF BAR SINCE NOVEMBER 2019 Alcohol intake: current Alcohol use details: 1/MONTH Substance use: current Substance use type: marijuana Other substance usage details: OCCASIONAL MARIJUANA Do You Feel Safe in your Home?: No Lack of Transportation: No Lack of Food: Never True Current Housing: I Have Housing Concerned About Future Housing: No Difficulty Paying Gas/Electric Bills: No Difficulty Paying for Meds: No Currently Unemployed: No Education: High School Diploma/GED Difficulty w/ Childcare or Family Care: No Living arrangements: with family Gender identity (if verbalized by the patient): Female Spiritual care concerns: No Meds Home Medications and Allergies Home Medications ?Medication ?Instructions ?Recorded ?Confirmed ?Type ondansetron 8 mg disintegrating 8 mg PO Q8H PRN nausea and 10/14/24 10/21/24 Rx tablet vomiting #14 tabs clonidine HCl 0.1 mg tablet 0.1 mg PO BID PRN anxiety #40 tabs 10/18/24 10/21/24 Rx promethazine 25 mg tablet 25 mg PO TID PRN nausea and 10/21/24 10/21/24 History vomiting ondansetron 8 mg disintegrating 8 mg PO Q8H PRN nausea and 11/04/24 Rx tablet vomiting #14 tabs potassium chloride 20 mEq 20 meq PO BID #12 tabs 11/04/24 Rx tablet,extended release(part/cryst) (Klor-Con M) scopolamine base 1 mg over 3 days 1 patch transdermal Q3D PRN nausea 11/04/24 Rx transdermal patch and vomiting #10 ea Allergies Allergy/AdvReac Type Severity Reaction Status Date / Time haloperidol (From Haldol) AdvReac Intermediate Anxiety Verified 11/04/24 14:12 metoclopramide AdvReac Intermediate Anxiety Verified 11/04/24 14:12 prochlorperazine (From AdvReac Intermediate Anxiety Verified 11/04/24 14:12 Compazine) Exam Const: General: healthy appearing and alert Orientation/consciousness: patient oriented x3 Resp: Effort & Inspection: normal respiratory effort GI: GI Palp: Yes Soft to palpation, No Tenderness to palpation present (GI) and No Palpable mass present : External Female Exam: normal external appearance Speculum Exam - Vagina: normal appearance of the vagina and normal vaginal discharge Speculum Exam - Cervix: normal appearance of the cervix Bimanual exam- vagina & uterus: uterine size normal and consistency normal Bimanual Exam- Adnexa, other: normal adnexae and No adnexal tenderness Neuro: General: patient oriented x3 Assessment and Plan Assessment and plan (1) Menorrhagia: Code(s): N92.0 - Excessive and frequent menstruation with regular cycle Status: Acute Assessment and Plan: Plan to proceed with D&C hysteroscopy
--- NOTE | 2024-11-10 07:51 | WPDANESEPPF ---
Anes - Initial Pre Proc Eval Procedure: Operation Date: 11/10/24 08:15 Proposed Procedures p Hysteroscopy Dilation and Curettage - Divya Patel MD Date/Time: 11/10/24 07:51 Surgeon: Divya Patel MD Pre Op Diagnosis: Menorrhagia Patient Data Age: 29 Gender: F Height: 1.57 m Weight: 54.5 kg Allergies Allergy/AdvReac Type Severity Reaction Status Date / Time haloperidol (From Haldol) AdvReac Intermediate Anxiety Verified 11/04/24 14:12 metoclopramide AdvReac Intermediate Anxiety Verified 11/04/24 14:12 prochlorperazine (From AdvReac Intermediate Anxiety Verified 11/04/24 14:12 Compazine) Home Medications ?Medication ?Instructions ?Recorded ?Confirmed ?Type ondansetron 8 mg disintegrating 8 mg PO Q8H PRN nausea and 10/14/24 10/21/24 Rx tablet vomiting #14 tabs clonidine HCl 0.1 mg tablet 0.1 mg PO BID PRN anxiety #40 tabs 10/18/24 10/21/24 Rx promethazine 25 mg tablet 25 mg PO TID PRN nausea and 10/21/24 10/21/24 History vomiting ondansetron 8 mg disintegrating 8 mg PO Q8H PRN nausea and 11/04/24 Rx tablet vomiting #14 tabs potassium chloride 20 mEq 20 meq PO BID #12 tabs 11/04/24 Rx tablet,extended release(part/cryst) (Klor-Con M) scopolamine base 1 mg over 3 days 1 patch transdermal Q3D PRN nausea 11/04/24 Rx transdermal patch and vomiting #10 ea Patient hx anesthesia problems: none Family hx anesthesia problems: none Results Review: All pre-operative results and documents have been reviewed as part of the pre-operative evaluation. [facility] Past Medical History Medical History (normal spontaneous vaginal delivery) 2020-severe hyperemesis, preeclampsia 2023 Anxiety Asthma childhood only Surgical History Surgical History History of bilateral tubal ligation In 2023 bilateral salpingectomies History of tympanostomy Family History Family History Father Alive and well Colon cancer Mother Alive and well Sibling Brain tumor Social History Social History Smoking packs per day: 0.5 Smoking cigarettes per day: 10.0 Years smoked: 10 Smoking pack-years: 5.00 Smoking status: Current every day smoker Tobacco type: cigarettes and e-cigarettes/vaping Second hand tobacco smoke exposure: Yes Smoking end date: 01/06/20 Additional smoking assessment comments: HAS BEEN SMOKING PUFF BAR SINCE NOVEMBER 2019 Alcohol intake: current Alcohol use details: 1/MONTH Substance use: current Substance use type: marijuana Other substance usage details: OCCASIONAL MARIJUANA Do You Feel Safe in your Home?: No Lack of Transportation: No Lack of Food: Never True Current Housing: I Have Housing Concerned About Future Housing: No Difficulty Paying Gas/Electric Bills: No Difficulty Paying for Meds: No Currently Unemployed: No Education: High School Diploma/GED Difficulty w/ Childcare or Family Care: No Living arrangements: with family Gender identity (if verbalized by the patient): Female Spiritual care concerns: No Anes - Eval Final PreProcedure Day of Procedure 11/10/24 07:51 Patient weight: normal Heart: regular rate and rhythm Lungs: decreased breath sounds Airway: Mallampati scale class II Neurological: alert and oriented Last oral intake: >/= 8 hours ASA classification: III Emergent: no Anesthetic plan: proceed Anesthesia type and monitoring: general GIVS and standard monitoring Results Review: All pre-operative results and documents have been reviewed as part of the pre-operative evaluation. Informed Consent: The patient's anesthetic plan and its attendant risks and benefits were discussed with the patient/family/POA. Questions were solicited and answers provided to the satisfaction of the patient/family/POA.
[2024-11-10 08:14] LABS: BEDSIDEPREGUCG Negative (Negative)
--- NOTE | 2024-11-10 08:20 | S_PTH ---
PATIENT: Aisha Cuevas LOC: [facility]#:[id number] AGE/SX: 29/F ROOM: RE11/10/[address]: Divya Patel MD : 1995 BED: DIS: 11/10/2024 SPEC #: [id number] RECD: 11/10/24 10:47 STATUS: IVANIA REQ #: [id number] ARIAN: 11/10/24 08:[address]: Divya Patel DEPT: [facility] RECD BY: Kimberli Rojo ENTERED: 11/10/24 10:47 SP TYPE: Surgical OTHR DR: Dionne Forde, PA Tissues: A - Endometrial Curettings Procedures: Hematoxylin and Eosin Stain Gross and Microscopic Level 4
--- NOTE | 2024-11-10 08:24 | P.OP_ITS ---
Procedure Note - Detailed Date of Procedure 11/10/24 Pre-op Diagnosis Menorrhagia Post-op Diagnosis Same Procedure Performed D&C hysteroscopy Surgeon Divya Patel MD Anesthesia MAC Findings Uterus sounds to 8cm and appears grossly normal Description of Procedure The patient is taken to the operating room and placed under anesthesia in the dorsal lithotomy position. She was prepped and draped in the usual sterile fashion. [place] speculum was placed in the vagina and the cervix grasped on the anterior lip with a tenaculum. The uterus is sounded to 8cm. The diagnostic hysteroscope was placed and with no abnormalities noted it is removed. The sharp curette is used to keep her at the endometrium until a good uterine cry was noted in all areas. Instruments were then removed. Sponge, needle, and instrument counts are correct per the OR staff. Patient was awakened from anesthesia and taken to recovery in stable condition. Estimated Blood Loss 5 Drains No Packing No Pathology Yes (Endometrial curettings) Complications No immediate complications Condition Stable Disposition PACU
[2024-11-10 08:25] VITALS: BP 100/69; PULSE 64; RESP 16; O2SAT 100
[2024-11-10 08:55] VITALS: BP 96/59; PULSE 46; RESP 16; O2SAT 100
[2024-11-10 09:25] VITALS: BP 98/67; PULSE 45; RESP 16; O2SAT 100
[2024-11-10] MEDS: oxyCODONE HCL (*CRX) 5 MG TAB IR PO (09:45)
[2024-11-10 09:51] VITALS: BP 94/57; PULSE 59; RESP 16
== END 2024-11-10 10:15 | disposition home or self-care (01) ==
PROVIDERS: PCP Physician Assistant; Visit Provider Obstetrics & Gynecology Gynecology
PROC: 0U5B8ZZ Destruction of Endometrium, Via Natural or Artificial Opening Endoscopic (ICD-10-PCS; CPT 58563; principal; 2024-11-10 08:15)
DX: N92.0 Excessive and frequent menstruation with regular cycle (principal); F41.9 Anxiety disorder, unspecified; J45.909 Unspecified asthma, uncomplicated; F17.210 Nicotine dependence, cigarettes, uncomplicated; F17.290 Nicotine dependence, other tobacco product, uncomplicated; F12.90 Cannabis use, unspecified, uncomplicated; Z98.890 Other specified postprocedural states; Z98.51 Tubal ligation status; Z80.0 Family history of malignant neoplasm of digestive organs
CPT/HCPCS: 58558; 88305; A9270; J1885; J2003; J2250; J2704; J3010; J7120

== ENCOUNTER 2024-12-15 00:23 | Day surgery (SDC) | payer OTHER, SELFPAY ==
--- OUTSIDE RECORDS SUMMARY | 2024-10-28 05:00 | XMS_ITS ---
Author Organization [facility] Address [address] [place], [place] [address] Care Team Providers Care Principal Cloud Architect Name Role Phone Kimber Valles Unavailable [phone] Nevin Bowling Unavailable [phone] REASON FOR VISIT High Blood Pressure , Vomiting Encounters Encounter Location Date Provider Diagnosis [facility] Primary Care [address] [address] 10/28/2024 Nevin Bowling Plan Of Treatment No Information Progress Notes * FAITHRhea SandovalAleksandarB: 8 (29 yo F)Acc No.[id number]:10/28/2024 Progress Notes Patient: Aisha Calero Provider: JOSY Moore :1995 A ge:29 Y S ex:Female Date:10/28/2024 Phone: Address:[address] [place] [address], [id number] Subjective: * Chief Complaints: * H igh Blood Pressure , Vomiting * Electronic signature of JOSY Camilo on 12/15/2024 at 12:25 AM INSIDE CONTRACTOR SALES Sign off status: Pending * Provider: JOSY Moore Date: 0 10/28/2024 Generated for [employer]/Fadanielag/eTransmitting on: 1 02/15/2024 12:25 AM INSIDE CONTRACTOR SALES
--- OUTSIDE RECORDS SUMMARY | 2024-11-11 03:40 | XMS_ITS ---
Author Organization [facility] Address [address] [place], [place] [address] Care Team Providers Care Research Laboratory Technician Name Role Phone Kimber Valles Unavailable [phone] Nevin Bowling Unavailable [phone] REASON FOR VISIT High Blood pressure nausea, vomiting Encounters Encounter Location Date Provider Diagnosis [facility] Primary Care [address] [address] 11/11/2024 Nevin Bowling Plan Of Treatment No Information Progress Notes * Rhea CUEVASAleksandarB: 8 (29 yo F)Acc No.[id number]:11/11/2024 Progress Notes Patient: Aisha Calero Provider: JOSY Moore :1995 A ge:29 Y S ex:Female Date:11/11/2024 Phone: Address:[address] [place] [address], [id number] Subjective: * Chief Complaints: * H igh Blood pressure nausea, vomiting * Electronic signature of JOSY Camilo on 12/15/2024 at 12:25 AM STREETCAR MOTORMAN Sign off status: Pending * Provider: JOSY Moore Date: Generated for Terra webster/Get/eTransmitting on: 02/15/2024 12:25 AM STREETCAR MOTORMAN
--- NOTE | 2024-12-03 09:33 | SUR.PREOP ---
[facility] has started construction of its new state of the art ER which will open Spring 2026. With this, we anticipate parking may be a challenge for some our surgical patients and families. Parking spaces are limited but are available for all Surgical, obstetrics, and ER patients sharing this lot. If you arrive and find you are having a hard time finding a parking space, please note that we understand the challenges, please drive around the hospital and park near Hospital Entrance 1. When you enter this entrance, you can ask a volunteer to direct or take you back to the surgical waiting area to check in. We appreciate everyone?s understanding of these expected challenges while we build for your future. Report to the Outpatient Waiting Room, entrance under the green pavilion located off [address], at time _6am__ on date _12/15/24__. Planned Procedure Time: _8am__.? Time changes happen often and if your time is changed the preop area will call you the afternoon before. - You and your visitor will be asked to self-screen and do not enter if you have any COVID symptoms. Please call surgeon if you need to reschedule. - A mask is optional within the hospital at this time. Patients may have clear liquids (water, carbonated beverages, clear teas, apple juice) until 3 hours prior to surgery with a maximum of 20 ounces. - No food from midnight until time of surgery and no smoking, or chewing tobacco (or any form of nicotine). No chewing gum, candy or mints. Take only the following medications with a SIP of water on the morning of surgery: _fluoxetine, (clonidine if needed)___ DO NOT STOP ANY OF YOUR OTHER PRESCRIPTION MEDICATIONS PRIOR TO SURGERY EXCEPT THE FOLLOWING Hold all vitamins and supplements for 3 days per anesthesiologist. Medications to discontinue per physician ___None____ Date to take last dose of vitamins on___12/11/24 Please no make-up, nail maori, hairspray, perfume, deodorant, or body powder the day of surgery.? No jewelry (including any body piercings) or valuables the day of surgery, leave them at home.? Please take a shower or bath the night before, or the morning of, surgery with an antibacterial soap.? Wear comfortable, loose fitting clothing.? - Jewelry must be removed prior to entering the operating room.? Rings and piercings that are not removed may be cut off. - The hospital will not accept responsibility for valuables.? - Please leave all valuables, including medications, at home the day of surgery. If you are going home after surgery, a licensed catering driver must drive you home.? - NO public transportation without another adult if you receive anesthesia. - We recommend that an adult stay with you for 24 hours following discharge. - We also recommend that you do not drive, make important decision, drink alcoholic beverages, or take any drugs that were not prescribed by your health care provider for at least 24 hours after your discharge time. Follow any additional instructions given to you from your surgeon. Telephone instructions given to __Aisha__and asked if any additional questions and then verbalized understanding. Patient advised to call surgeon office or pre surgery nurse liaison [phone] if any additional questions.
[2024-12-03 09:40] VITALS: BMI 21.7
--- NOTE | 2024-12-03 09:56 | SUR.PREOP ---
Aisha Cuevas Female : 1995 [facility]# [id number] 12/03/24 09:33 - Preoperative Note by Parvez Prakash RN Acct Num: [id number] : 1995 Patient Age: 29 [facility] has started construction of its new state of the art ER which will open Spring 2026. With this, we anticipate parking may be a challenge for some our surgical patients and families. Parking spaces are limited but are available for all Surgical, obstetrics, and ER patients sharing this lot. If you arrive and find you are having a hard time finding a parking space, please note that we understand the challenges, please drive around the hospital and park near Hospital Entrance 1. When you enter this entrance, you can ask a volunteer to direct or take you back to the surgical waiting area to check in. We appreciate everyone?s understanding of these expected challenges while we build for your future. Report to the Outpatient Waiting Room, entrance under the green pavilion located off [facility], at time _6am__ on date _12/15/24__. Planned Procedure Time: _8am__.? Time changes happen often and if your time is changed the preop area will call you the afternoon before. - You and your visitor will be asked to self-screen and do not enter if you have any COVID symptoms. Please call surgeon if you need to reschedule. - A mask is optional within the hospital at this time. Patients may have clear liquids (water, carbonated beverages, clear teas, apple juice) until 3 hours prior to surgery with a maximum of 20 ounces. - No food from midnight until time of surgery and no smoking, or chewing tobacco (or any form of nicotine). No chewing gum, candy or mints. Take only the following medications with a SIP of water on the morning of surgery: _fluoxetine___ DO NOT STOP ANY OF YOUR OTHER PRESCRIPTION MEDICATIONS PRIOR TO SURGERY EXCEPT THE FOLLOWING Hold all vitamins and supplements for 3 days per anesthesiologist. Medications to discontinue per physician ___None____ Date to take last dose of vitamins on___12/11/24 Please no make-up, nail armenian, hairspray, perfume, deodorant, or body powder the day of surgery.? No jewelry (including any body piercings) or valuables the day of surgery, leave them at home.? Please take a shower or bath the night before, or the morning of, surgery with an antibacterial soap.? Wear comfortable, loose fitting clothing.? - Jewelry must be removed prior to entering the operating room.? Rings and piercings that are not removed may be cut off. - The hospital will not accept responsibility for valuables.? - Please leave all valuables, including medications, at home the day of surgery. If you are going home after surgery, a licensed wheelchair van driver must drive you home.? - NO public transportation without another adult if you receive anesthesia. - We recommend that an adult stay with you for 24 hours following discharge. - We also recommend that you do not drive, make important decision, drink alcoholic beverages, or take any drugs that were not prescribed by your health care provider for at least 24 hours after your discharge time. Follow any additional instructions given to you from your surgeon. Telephone instructions given to __Aisha__and asked if any additional questions and then verbalized understanding. Patient advised to call surgeon office or pre surgery nurse liaison [phone] if any additional questions.
--- OUTSIDE RECORDS SUMMARY | 2024-12-15 00:25 | XMS_ITS | Encounter Summary ---
Author Organization [facility] Address [address] [place] [address] Care Team Providers Care Colorer Hides And Skins Name Role Phone Dionne Forde Primary Care Provider [phone] Encounter Details Date Type Department Care Team (Late st Contact Info) Description 12/13/2024 Results Follow-Up [facility] Family Medicine [address] [place] [address] Dionne Forde PA [address] [place] [address] TSH, T4, free, T3, free, Additional followed-up results: 7 Social History Tobacco Use Types Packs/Day Years Used Date Smoking Tobacco: Every Day Vaping Smokeless Tobacco: Never Alcohol Use Standard Drinks/Week Comments Yes 0 (1 standard drink = 0.6 oz pur e alcohol) PHQ-2 Answer Date Recorded PHQ-2 Total Score (If total score is 3 or more points, staff should administer the PHQ-9) 0 11/28/2024 AUDIT-C Answer Date Recorded Q1: How often do you have a drink containing alc ohol? Monthly or less 11/28/2024 Q2: How many drinks containi ng alcohol do you have on a typical day when you are drinking? 1 or 2 11/28/2024 Q3: How often do you have si x or more drinks on one occasion? Never 11/28/2024 Personal Safety Answer Date Recorded Have you ever been in or are you currently in a harmful physical or emotional relationship or is someone making you feel afraid or unsafe? Denies 11/25/2024 Comments No Sex and Gender Information Value Date Recorded Sex Assigned at Not on file Legal Sex Female 7:26 AM [employer] Gender Identity Not on file Sexual Orientation Not on file documented as of this encounter Plan of Treatment Upcoming Encounters Date Type Department Care Team (Late st Contact Info) Description 03/11/2025 12:00 PM [facility] Hospital Encounter [address] [address] Guicho Thomas, DO [address] [facility] [address] [place] [address] 03/11/2025 12:00 PM [employer] - 03/11/2025 12:30 PM [employer] Surgery [address] [address] Guicho Thomas, [address] [facility] [address] [place] [address] COLONOSCOPY Scheduled Procedures Name Priority Associated Diagnoses Date/Ti me COLONOSCOPY Chronic constipation Family history of colon cancer in father 03/11/2025 12:00 PM [employer] documented as of this encounter Visit Diagnoses Not on filedocumented in this encounter Care Teams Colorer Hides And Skins Relationship Specialty Start Date End Date Dionne Forde PA [address] [place] [address] PCP - General Family Medicine 11/24/24 documented as of this encounter
--- OUTSIDE RECORDS SUMMARY | 2024-12-15 00:25 | XMS_ITS | Encounter Summary ---
Author Organization [facility] Address [address] [place] [address] Care Team Providers Care Metal Burrer Name Role Phone None, Provider MD Primary Care Provider Lyndaa courtney None, Provider Primary Care Provider Unavaila ble Jordyn Michel Primary Care Provider [phone] Encounter Details Date Type Department Care Team (Late st Contact Info) Description 04/26/2021 Prep for Procedure [facility] [place] [address] Guicho Thomas, DO [address] [facility] [address] [place] [address] Social History Tobacco Use Types Packs/Day Years [...] PM CDT Idalia Sánchez RN Active * [place] Suicide Severity Rating Scale (Screener/Recent Self-Report) Question [...] SPEC DESCRIPTION NASAL 05/03/19 10:21 AM CDT [facility] CORONAVIRUS SARS COV 2 PCR (RESP) NEGATIVE NEGATIVE 05/02/2021 7:45 PM CDT [facility] Comment: THE SARS-CoV-2 TEST HAS BEEN AUTHORIZED BY THE FDA UNDER AN EUA FOR USE BY AUTHORIZED LABORATORIES. PERFORMED BY NUCLEIC ACID AMPLIFICATION PCR FIRST TEST UNKNOWN 05/02/2021 10:21 AM CDT [facility] EMPLOYED IN HEALTHCARE NO 05/02/2021 10:21 AM CDT [facility] SYMPTOMATIC DEFINED BY CDC NO 05/02/2021 10:21 AM CDT [facility] HOSPITALIZATION STATUS NO 05/02/2021 10:21 AM CDT [facility] PATIENT IN ICU NO 05/02/2021 10:21 AM CDT [facility] RESIDENT OF [facility] CARE NO 05/02/2021 10:21 AM CDT [facility] UNKNOWN 05/02/2021 10:21 AM CDT [facility] NASAL STRUCTURE / Unknown 05/02/2021 10:20 AM CDT us Guicho Thomas DO MICROBIOLOGY - GENERAL ORDERABL ES Final Result [facility] [address] [place] [address], [place] [phone] [facility] [address] [place] [address], [place] [phone] documented in this encounter Visit Diagnoses Diagnosis Weight loss- Primary Loss of weight documented in this encounter Additional Health Concerns Infection Onset Date Last Indicated Resolved Time COVID-19 Rule Out 05/02/2021 05/02/2021 05/02/2021 7:45 PM CDT documented as of this encounter Care Teams Metal Burrer Relationship Specialty Start Date End Date None, Provider, PCP - General 04/07/21 04/28/21 None, Provider, PCP - General 04/29/21 04/29/21 Jordyn Michel FNP [address] [place] [address] PCP - General Nurse Practitioner Family 04/30/21 documented as of this encounter
--- OUTSIDE RECORDS SUMMARY | 2024-12-15 00:25 | XMS_ITS | Patient Health Record ---
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 Vall[address] [address] [place] [address] 10/27/2024 Kimber Valles Other thyrotoxicosi s without thyrotoxic crisis or storm E05.80 ; Abnormal weight loss R63.4 ; Irregular menstruation, unspecified N92.6 ; Palpitations R00.2 and Loose stools R19.[address] Vall[address] [address] [place] [address] 10/30/2024 Kimber Valles Assessments Encounter Date Diagnosis [...] examination and/or evaluation, counseling and educating the patient/family/special needs caregiver, ordering medications, tests, or procedures, referring and communicating with other health laboratory animal caretaker, documenting clinical information in the electronic or other health record, independently interpreting results and communicating results to the patient/family/special needs caregiver and care coordinating patient plan. Patient alert [...]
--- OUTSIDE RECORDS SUMMARY | 2024-12-15 00:25 | XMS_ITS | Encounter Summary ---
Author Organization [facility] Healthcare Address [address] [place] [address] Care Team Providers Care Lieutenant Fire Fighter Name Role Phone Dionne Forde Primary Care Provider [phone] Encounter Details Date Type Department Care Team (Latest Contact Info) Description 11/26/2024 Results Follow-Up [facility] Gastroenterology at [address] [place] [id number] Guicho Thomas, [address] [place] [address] Surgical pathology Social History Tobacco Use Types Packs/Day Years [...] on file Legal Sex Female 7:26 AM HYDROGRAPHIC ENGINEER Gender Identity Not on file Sexual Orientation Not on file documented as of this encounter Functional Status * In the past year, patient experienced: Question Answer Date of Assessment Author One or more falls in the last year 0 2024 10:05 AM Jordyn Neves MA * BP Location Answer Date of Assessment Author Right arm 11/28/2024 10:01 AM Jordyn Neves MA * AUDIT-C Score Answer Date of Assessment Author 1 11/28/2024 10:04 AM Jordyn Neves MA * Alcohol Use Question Answer Date of Assessment Author Q1: How often do you have a drink containing alcohol? Monthly or less 11/28/2024 10:04 AM Jordyn Neves MA Q2: How many drinks containing alcohol do you have on a typical day when you are drinking? 1 or 2 11/28/2024 10:04 AM Jordyn Neves MA Q3: How often do you have six or more drinks on one occasion? Never 11/28/2024 10:04 AM Jordyn Neves MA * BP Location Answer Date of Assessment Author Right arm 11/28/2024 10:01 AM Jordyn Neves MA documented as of this encounter Plan of Treatment Upcoming Encounters Date Type Department Care Team (Late st Contact Info) Description 03/11/2025 12:00 PM HYDROGRAPHIC ENGINEER Hospital Encounter [address] [address] Guicho Thomas DO [address] [place] [address] 03/11/2025 12:00 PM HYDROGRAPHIC ENGINEER - 03/11/2025 12:30 PM HYDROGRAPHIC ENGINEER Surgery [address] [address] Guicho Thomas DO [address] [place] [address] COLONOSCOPY Scheduled Procedures Name Priority Associated Diagnoses Date/Ti me COLONOSCOPY Chronic constipation Family history of colon cancer in father 03/11/2025 12:00 PM HYDROGRAPHIC ENGINEER documented as of this encounter Visit Diagnoses Not on filedocumented in this encounter Care Teams Lieutenant Fire Fighter Relationship Specialty Start Date End Date Dionne Forde PA [address] [facility] [address] [place] [address] PCP - General Family Medicine 11/24/24 documented as of this encounter
--- OUTSIDE RECORDS SUMMARY | 2024-12-15 00:26 | XMS_ITS | Encounter Summary ---
Author Organization [facility] Healthcare Address [address] [place] [address] Care Team Providers Care Project Safety Manager Name Role Phone Jesús Yates MD Primary Care Provider [phone] Dionne Forde Primary Care Provider [phone] Encounter Details Date Type Department Care Team (Latest Contact Info) Description 11/04/2024 Results Follow-Up [facility] Medical [facility] Gastroenterology at [address] [place] [id number] Guicho Thomas, [address] [place] [address] Folate, Iron profile w/ IBC, Vitamin B12, [...] on file Legal Sex Female 7:26 AM SPORTS INFORMATION DIRECTOR Gender Identity Not on file Sexual Orientation Not on file documented as of this encounter Functional Status * BP Location Answer Date of Assessment Author Left arm 11/04/2024 9:03 AM CDT August Martinez MA * Alcohol Use Question Answer Date of Assessment Author Q1: How often do you have a drink containing alcohol? Never 11/04/2024 9:05 AM CDT August Walker MA * BP Location Answer Date of Assessment Author Left arm 11/04/2024 9:03 AM CDT August Martinez MA documented as of this encounter Miscellaneous Notes * Result Encounter Note - August Walker MA - 11/04/2024 1:04 PM CDT Pt notified documented in this encounter Plan of Treatment Upcoming Encounters Date Type Department Care Team (Late st Contact Info) Description 03/11/2025 12:00 PM SPORTS INFORMATION DIRECTOR Hospital Encounter [address] [address] Guicho Thomas DO [address] [facility] [address] [place] [address] [place] [address] 03/11/2025 12:00 PM SPORTS INFORMATION DIRECTOR - 03/11/2025 12:30 PM SPORTS INFORMATION DIRECTOR Surgery [address] [address] Guicho Thomas DO [address] [facility] [address] [place] [address] [place] [address] COLONOSCOPY Scheduled Procedures Name Priority Associated Diagnoses Date/Ti me COLONOSCOPY Chronic constipation Family history of colon cancer in father 03/11/2025 12:00 PM SPORTS INFORMATION DIRECTOR documented as of this encounter Visit Diagnoses Not on filedocumented in this encounter Care Teams Project Safety Manager Relationship Specialty Start Date End Date Jesús Yates MD PCP - General Family Medicine 12/11/19 11/23/24 Dionne Forde PA [address] [address] PCP - General Family Medicine 11/24/24 documented as of this encounter
--- OUTSIDE RECORDS SUMMARY | 2024-12-15 00:26 | XMS_ITS | Clinical Summary ---
Author Organization [facility] Address [address] [place] [address] Care Team Providers Care Brazer Electronic Name Role Phone Jordyn Michel Primary Care Provider Allergies Active Allergy Reactions Criticality Noted Date Comments Prochlorperazine Anxiety Low 04/07/2021 Metoclopramide Anxiety Low 01/22/2016 Medications acetaminophen (TYLENOL) 500 MG tablet Take 2 tablets (1,000 mg total) by mouth every 6 (six) hours as needed for Pain. Active ELURYNG 0.12-0.015 MG/24HR RING Place 1 each vaginally every 30 (thirty) days. 3 Active Active Problems Problem Noted Date Diagnosed Date Intractable nausea and vomiting 10/15/2024 Hypokalemia 04/29/2021 Encounters Date Type Department Care Team Description 10/21/2024 Telephone [facility] Family & Internal Medicine [address] [phone] Jordyn Michel FNP [facility] 10/19/2024 2:14 PM CDT - 10/19/2024 4:33 PM CDT Emergency [facility] [place] [address] Kevin Conklin MD Abdominal Pain Discharge Disposition: Home or Self Care (Routine Discharge) 10/19/2024 Travel 10/15/2024 6:51 AM CDT - 10/17/2024 11:00 AM CDT Hospital Encounter [facility] [place] [address] Coy Doll MD Suresh, Rick Mayers MD Vomiting Discharge Disposition: Home or Self [...] from your doctor or pharmacy? Never 10/15/[address] [facility] Utilities Answer Date Recorded In the past 12 months has [facility] flex[employer]ceipts, [employer], or water flatev threatened to shut off services in your [...] or ex-partner? No 10/15/2024 Social Connection and Isolation Panel Answer Date Recorded In a typical week, how many times do you talk on the phone with family, friends, or neighbors? More than three times a week 10/15/2024 How often do you get togethe r with friends or relatives? More than three times a week 10/15/2024 How often do you attend [facility] services? Never 10/15/2024 Do you belong to any clubs o r organizations such as islam groups, unions, fraternal or athletic groups, or [...] Recorded Patient Health Questionnaire-2 Score 0 10/15/2024 [facility] - Occupational Stress Questionnaire Answer Date Recorded [...] any time in the past 12 m [facility], were you homeless or living in a care home (including now)? No 10/15/2024 Comments No Sex [...] Cervical Cancer Screening 1995 Annual Physical 2000 Hepatitis A Vaccines (2 of 2 - 2-dose series) 08/08/2007 02/07/2007 HPV Vaccines (2 - 2-dose series) 04/05/2009 10/06/2008 Hepatitis C 2015 COVID-19 Vaccine ( season) 2024 Influenza Adult (#1) 2024 11/29/2015, 11/09/2009, 02/08/2009, Additional history exists DTaP, Tdap and Td Vaccines (8 - Td or Tdap) 09/18/2030 09/18/2020, 09/05/2007, 05/30/2001, Additional history exists Hepatitis B Vaccines Completed 1995, 1997, 1997 Meningococcal Vaccine Completed 12/01/2015, 009 PHQ-2 (Physician [place]) Completed 10/15/2024 Meningococcal B Vaccine Aged Out [...] (BACK OFFICE) STAT 10/19/2024 2:33 PM CDT HC LIPASE STAT 10/19/2024 2:17 PM CDT HC URINALYSIS AUTO W/O MICRO STAT 10/19/2024 2:17 PM CDT HC TROPONIN QN STAT 10/19/2024 2:17 PM CDT HC COMPREHENSIVE METABOLIC PANEL STAT 10/19/2024 2:17 PM CDT HC CBC AUTO W/AUTO DIFF STAT 10/19/2024 2:17 PM CDT HC CBC W/O DIFF Routine 10/17/2024 4:23 AM CDT HC BASIC METABOLIC PANEL Routine 10/17/2024 4:23 AM CDT HC PHOSPHORUS Routine 10/17/2024 4:23 AM CDT HC HCG QL Routine 10/16/2024 11:14 AM CDT HC PHOSPHORUS Routine 10/16/2024 4:40 AM CDT HC MAGNESIUM Routine 10/16/2024 4:40 AM CDT HC BASIC METABOLIC PANEL Routine 10/16/2024 4:40 AM CDT HC CBC AUTO W/AUTO DIFF Routine 10/16/2024 4:40 AM CDT HC PHOSPHORUS Routine 10/15/2024 3:24 PM CDT HC BASIC METABOLIC PANEL TIMED 10/15/2024 3:24 PM CDT ECG 12-LEAD Routine 10/15/2024 2:23 PM CDT DRUG SCREEN RAPID STAT 10/15/2024 8:5 7 AM CDT HC URINALYSIS AUTO W/MICRO STAT 10/15/2024 8:[address] ABD+PEL W CON STAT 10/15/2024 8:40 AM CDT PROCALCITONIN (PCT) Routine 10/15/2024 7 :11 AM CDT HC PHOSPHORUS Routine 10/15/2024 7:11 AM CDT HC MAGNESIUM Routine 10/15/2024 7:11 AM CDT HC COMPREHENSIVE METABOLIC PANEL STAT 10/15/2024 7:11 AM CDT HC CBC AUTO W/AUTO DIFF STAT 10/15/2024 7:11 AM CDT from Last 3 Months Results * ECG 12 lead (10/19/2024 2:44 PM CDT) Only the most recent of2 resultswithin the time period is included. 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 : 1995 Requested By: NICOLE QUVEEDO Order Number: [id number] Reading MD: Gayle Cummins Measurements Intervals [place] Rate: 82 P: 73 [place]: 151 QRS: -76 QRSD: 86 T: 34 [...] Procedure Note Gayle Cummins MD - 10/19/2024 [place] [address] Test Date: 2024-10-19 Pat Name: GIANNA ALFRED Department: 41 Room: EXAM25 Gender: Female 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 Referred By: Interpreted By: Sarkis Mendez MD, 10/19/2024 2:41 PM Narrative 10/19/2024 2:48 PM CDT [place] [id number] Examination: XR CHEST PORTABLE Exam time: 10/19/2024 2:28 PM Indication: Dizziness Comparison: None Findings: Upright AP view of the chest was obtained. The heart size is normal. No vascular congestion. No airspace consolidation, pleural effusion, or pneumothorax. Procedure Note Sarkis Mendez MD - 10/19/2024 [place] [address] Examination: XR CHEST PORTABLE Exam time: 10/19/2024 [...] * (ABNORMAL) URINALYSIS (10/19/2024 2:17 PM CDT) [facility] SPECIMEN TYPE URINE CLEAN CATCH 10/19/2024 2:33 PM CDT [facility] COLOR (U) YELLOW 10/19/2024 2:52 PM CDT [facility] TRANSPARENCY TURBID 10/19/2024 2:52 PM CDT [facility] SPECIFIC GRAVITY (U) 1.025 1.001 - 1.030 10/19/2024 2:52 PM CDT [facility] U PH 6.0 5.0 - 9.0 10/19/2024 2:52 PM CDT [facility] LEUKOCYTES (U) 75(A) NEGATIVE 10/19/2024 2:52 PM CDT [facility] NITRITES NEGATIVE NEGATIVE 10/19/2024 2:52 PM CDT [facility] PROTEIN RANDOM (U) 50(H) <30 MG/DL 10/19/2024 2:52 PM CDT [facility] GLUCOSE (U) NORMAL NORMAL MG/DL 10/19/2024 2:52 PM CDT [facility] KETONES MG/DL (U) NEGATIVE NEGATIVE MG/DL 10/19/2024 2:52 PM CDT [facility] UROBILINOGEN 2.0(A) NORMAL MG/DL 10/19/2024 2:52 PM CDT [facility] BILIRUBIN (U) NEGATIVE NEGATIVE MG/DL 10/19/2024 2:52 PM CDT [facility] BLOOD (U) 3+(A) NEGATIVE 10/19/2024 2:52 PM CDT [facility] MUCUS MANY /LPF 10/19/2024 2:52 PM CDT [facility] WBC/HPF 11(H) <6 /HPF 10/19/2024 2:52 PM CDT [facility] RBC/HPF 18(H) <6 /HPF 10/19/2024 2:52 PM CDT [facility] CA OXALATE CRYSTALS RARE /HPF 10/19/2024 2:52 PM CDT [facility] SQUAMOUS EPITHELIALS MANY /HPF 10/19/2024 2:52 PM CDT [facility] URINE SPECIMEN OBTAINED BY CLEAN CATCH PROCEDURE / Unknown 10/19/2024 2:17 PM CDT us Nicole العراقي URINE ORDERABLES Final Resul t [facility] [address] [place] [address], [place] [phone] * (ABNORMAL) COMPREHENSIVE METABOLIC PANEL (10/19/2024 2:17 PM CDT) Only the most recent of2 resultswithin the time period is included. GLUCOSE 115(H) 70 - 99 MG/DL 10/19/2024 3:18 PM CDT [facility] BUN 9 7 - 18 MG/DL 10/19/2024 3:18 PM CDT [facility] CREATININE S/P/B 0.90 0.55 - 1.02 MG/DL 10/19/2024 3:18 PM CDT [facility] SODIUM S/P/B 133(L) 136 - 145 MMOL/L 10/19/2024 3:18 PM CDT [facility] POTASSIUM S/P/B 3.8 3.5 - 5.1 MMOL/L 10/19/2024 3:18 PM CDT [facility] CHLORIDE S/P/B 101 97 - 115 MMOL/L 10/19/2024 3:18 PM CDT [facility] CO2 25.7 21 - 32 MMOL/L 10/19/2024 3:18 PM CDT [facility] CALCIUM S/P/B 9.9 8.5 - 10.1 MG/DL 10/19/2024 3:18 PM CDT [facility] BILIRUBIN TOTAL S/P/B 0.9 0.2 - 1.2 MG/DL 10/19/2024 3:18 PM CDT [facility] Comment: THIS ASSAY IS NOT RECOMMENDED FOR PATIENTS UNDERGOING TREATMENT WITH ELTROMBOPAG DUE TO THE POTENTIAL FOR FALSELY ELEVATED RESULTS. TOTAL PROTEIN S/P/B 7.9 6.4 - 8.2 G/DL 10/19/2024 3:18 PM CDT [facility] ALBUMIN S/P/B 4.6 3.4 - 5.0 G/DL 10/19/2024 3:18 PM CDT [facility] AST 28 15 - 37 U/L 10/19/2024 3:18 PM CDT [facility] ALT 175(H) 14 - 55 U/L 10/19/2024 3:18 PM CDT [facility] ALKALINE PHOSPHATASE S/P/B 78 50 - 136 U/L 10/19/2024 3:18 PM CDT [facility] ANION GAP 6.3 2 - 10 MMOL/L 10/19/2024 3:18 PM CDT [facility] BUN CREATININE RATIO 9.9 6 - 26 10/19/2024 3:18 PM CDT [facility] A/G RATIO 1.4 1.0 - 2.0 RATIO 10/19/2024 3:18 PM CDT [facility] GFR ESTIMATE 90(L) >90 ML/MIN/1.7 3 M2 10/19/2024 3:18 PM CDT [facility] Comment: NOTE: eGFR is not calculated for patients <18 years of age or gender unknown. This is an estimated GFR calculation using the new CKD EPI creatinine equation without race and so does not require a correction factor for race. This estimated GFR should not be used for calculating drug doses. 10/19/2024 2:17 PM CDT Nicole العراقي LABORATORY Final Result [facility] [address] [place] [address], * (ABNORMAL) CBC W/DIFF AUTOMATED (10/19/2024 2:17 PM CDT) Only the most recent of3 resultswithin the time period is included. WBC 10.43 4.5 - 11.0 x10'3/uL 10/19/2024 2:40 PM CDT [facility] RBC 4.97 4.20 - 5.40 x10'6/uL 10/19/2024 2:40 PM CDT [facility] HGB 15.1 12.0 - 16.0 G/DL 10/19/2024 2:40 PM CDT [facility] HCT 43.3 38.0 - 48.0 % 10/19/2024 2:40 PM CDT [facility] MCV 87.1 81.0 - 99.0 FL 10/19/2024 2:40 PM CDT [facility] MCH 30.4 27.0 - 31.0 PG 10/19/2024 2:40 PM CDT [facility] MCHC 34.9 32.0 - 36.0 G/DL 10/19/2024 2:40 PM CDT [facility] RDW 11.9 11.5 - 14.5 % 10/19/2024 2:40 PM CDT [facility] PLT 287 130 - 400 x10'3/uL 10/19/2024 2:40 PM CDT [facility] MPV 12.2 9.3 - 12.2 FL 10/19/2024 2:40 PM CDT [facility] DIFFERENTIAL TYPE AUTOMATED DIFFERENTIAL 10/19/2024 2:40 PM CDT [facility] NEUTROPHILS % 69.6 % 10/19/2024 2:40 PM CDT [facility] LYMPHOCYTES % 19.8 % 10/19/2024 2:40 PM CDT [facility] MONOCYTES % 8.5 % 10/19/2024 2:40 PM CDT [facility] EOSINOPHILS 1.3 % 10/19/2024 2:40 PM CDT [facility] BASOPHILS 0.5 % 10/19/2024 2:40 PM CDT [facility] IMMATURE GRANS % 0.3 % 10/20/19 2:40 PM CDT [facility] ABS. NEUTROPHILS 7.25 1.80 - 7.70 x10'3/uL 10/19/2024 2:40 PM CDT [facility] ABS. LYMPHOCYTES 2.07 1.00 - 4.80 x10'3/uL 10/19/2024 2:40 PM CDT [facility] ABS. MONOCYTES 0.89(H) 0.24 - 0.86 x10'3/uL 10/19/2024 2:40 PM CDT [facility] ABS. EOSINOPHILS 0.14 0.04 - 0.36 x10'3/uL 10/19/2024 2:40 PM CDT [facility] ABS. BASOPHILS 0.05 0.01 - 0.08 x10'3/uL 10/19/2024 2:40 PM CDT [facility] ABS. IMMATURE GRANULOCYTES 0.03 0.00 - 0.49 x10'3/uL 10/19/2024 2:40 PM CDT [facility] 10/19/2024 2:17 PM CDT Nicole العراقي LABORATORY Final Result [facility] [address] [place] [address], [place] [phone] * TROPONIN, QUANT (10/19/2024 2:17 PM CDT) TROPONIN I HIGH SENSITIVITY <3 <54 ng/L 10/19/2024 3:18 PM CDT [facility] Comment: HIGH DOSES OF BIOTIN, TROPONIN-SPECIFIC AUTOANTIBODIES, AND ANTIBODY THERAPY CONTAINING HAMA MAY INTERFERE WITH THIS TEST RESULT. CORRELATION TO CLINICAL HISTORY AND PRESENTATION RECOMMENDED. 10/19/2024 2:17 PM CDT Nicole العراقي LABORATORY Final Result [facility] [address] [place] [address], [place] [phone] * LIPASE (10/19/2024 2:17 PM CDT) LIPASE 20 13 - 75 UNITS/L 10/19/2024 3:18 PM CDT [facility] 10/19/2024 2:17 PM CDT Nicole العراقي LABORATORY Final Result [facility] [address] [place] [address], * (ABNORMAL) BASIC METABOLIC PANEL (10/17/2024 4:23 AM CDT) Only the most recent of3 resultswithin the time period is included. GLUCOSE 124(H) 70 - 99 MG/DL 10/17/2024 5:32 AM CDT [facility] BUN 5(L) 7 - 18 MG/DL 10/17/2024 5:32 AM CDT [facility] CREATININE S/P/B 0.57 0.55 - 1.02 MG/DL 10/17/2024 5:32 AM CDT [facility] SODIUM S/P/B 135(L) 136 - 145 MMOL/L 10/17/2024 5:32 AM CDT [facility] POTASSIUM S/P/B 3.4(L) 3.5 - 5.1 MMOL/L 10/17/2024 5:32 AM CDT [facility] CHLORIDE S/P/B 103 97 - 115 MMOL/L 10/17/2024 5:32 AM CDT [facility] CO2 27.2 21 - 32 MMOL/L 10/17/2024 5:32 AM CDT [facility] CALCIUM S/P/B 9.4 8.5 - 10.1 MG/DL 10/17/2024 5:32 AM CDT [facility] ANION GAP 4.8 2 - 10 MMOL/L 10/17/2024 5:32 AM CDT [facility] BUN CREATININE RATIO 8.8 6 - 26 10/17/2024 5:32 AM CDT [facility] GFR ESTIMATE >90 >90 ML/MIN/1.7 3 M2 10/17/2024 5:32 AM CDT [facility] Comment: NOTE: eGFR is not calculated for patients <18 years of age or gender unknown. This is an estimated GFR calculation using the new CKD EPI creatinine equation without race and so does not require a correction factor for race. This estimated GFR should not be used for calculating drug doses. 10/17/2024 4:23 AM CDT Rick Cerna MD LABORATORY Final R esult [facility] [address] [place] [id number], * (ABNORMAL) CBC, AUTO, NO DIFF (10/17/2024 4:23 AM CDT) WBC 9.21 4.5 - 11.0 x10'3/uL 10/17/2024 6:02 AM CDT [facility] RBC 4.70 4.20 - 5.40 x10'6/uL 10/17/2024 6:02 AM CDT [facility] HGB 14.6 12.0 - 16.0 G/DL 10/17/2024 6:02 AM CDT [facility] HCT 41.0 38.0 - 48.0 % 10/17/2024 6:02 AM CDT [facility] MCV 87.2 81.0 - 99.0 FL 10/17/2024 6:02 AM CDT [facility] MCH 31.1(H) 27.0 - 31.0 PG 10/17/2024 6:02 AM CDT [facility] MCHC 35.6 32.0 - 36.0 G/DL 10/17/2024 6:02 AM CDT [facility] RDW 11.7 11.5 - 14.5 % 10/17/2024 6:02 AM CDT [facility] PLT 276 130 - 400 x10'3/uL 10/17/2024 6:02 AM CDT [facility] MPV 12.6(H) 9.3 - 12.2 FL 10/17/2024 6:02 AM CDT [facility] 10/17/2024 4:23 AM CDT us Rick Cerna MD LABORATORY Final R esult [facility] [address] [place] [address], [place] [phone] * PHOSPHORUS, INORGANIC PHOSPHATE (10/17/2024 4:23 AM CDT) Only the most recent of4 resultswithin the time period is included. PHOSPHORUS 2.5 2.5 - 4.9 MG/DL 10/17/2024 5:32 AM CDT [facility] 10/17/2024 4:23 AM CDT Rick Cerna MD LABORATORY Final R esult [facility] [address] [place] [id number], * PREG TEST SERUM (HCG QUALITATIVE) (10/16/2024 11:14 AM CDT) Pathologist [facility] PREG SCREEN-SERUM NEGATIVE 10/16/2024 11:37 AM CDT [facility] 10/16/2024 11:1 4 AM CDT Rick Cerna MD LABORATORY Final R esult [facility] [address] [place] [id number], * MAGNESIUM (10/16/2024 4:40 AM CDT) Only the most recent of2 resultswithin the time period is included. [facility] MAGNESIUM 2.2 1.8 - 2.4 MG/DL 10/16/2024 5:50 AM CDT [facility] 10/16/2024 4:40 AM CDT Mere Mckeon NP LABORATORY Final Result [facility] [address] [place] [address], * (ABNORMAL) DRUG SCREEN RAPID (10/15/2024 8:57 AM CDT) Pathologist [facility] AMPHETAMINE (U) NEGATIVE NEGATIVE 12:39 PM CDT [facility] BARBITURATES SCREEN (U) NEGATIVE NEGATIVE 10/15/2024 12:39 PM CDT [facility] BENZODIAZEPINES SCREEN (U) NEGATIVE NEGATIVE 10/15/2024 12:39 PM CDT [facility] CANNABINOIDS SCREEN (U) POSITIVE(A) NEGATIVE 10/15/2024 12:39 PM CDT [facility] COCAINE METABOLITES (U) NEGATIVE NEGATIVE 10/15/2024 12:39 PM CDT [facility] METHADONE (U) NEGATIVE NEGATIVE 10/15/2024 12:39 PM CDT [facility] OPIATE SCREEN (U) NEGATIVE NEGATIVE 025 12:39 PM CDT [facility] PHENCYCLIDINE PCP (U) NEGATIVE NEGATIVE 10/15/2024 12:39 PM CDT [facility] Comment: NOTE: RESULTS OF THIS DRUG SCREEN SHOULD BE USED FOR MEDICAL PURPOSES ONLY AND NOT FOR LEGAL OR EMPLOYMENT PURPOSES. POSITIVE RESULTS ARE NOT CONFIRMED. MEDICATIONS CONTAINING EPHEDRINE MAY CAUSE FALSE POSITIVE AMPHETAMINE CALL [phone], LAB, TO REQUEST CONFIRMATION TESTING. IF CREATININE IS <40 mg/dL. RECOLLECTION IS SUGGESTED. AMPHETAMINE- 500 NG/ML BARBITURATE- 200 NG/ML BENZODIAZEPINES- 200 NG/ML THC- 50 NG/ML COCAINE- 150 NG/ML METHADONE- 300 NG/ML OPIATE- 300 MG/ML PCP- 25 NG/ML CREATININE (U) 80.4 28 - 217 MG/DL 10/15/2024 12:39 PM CDT [facility] URINE SPECIMEN / Unknown 10/15/2024 8:57 AM CDT Mere Mckeon NP URINE ORDERABLES Final Result [facility] [address] [place] [address], [place] [phone] * (ABNORMAL) Urinalysis, Auto, Complete (10/15/2024 8:57 AM CDT) SPECIMEN TYPE URINE CLEAN CATCH 10/15/2024 8:52 AM CDT [facility] COLOR (U) COLORLESS 10/15/2024 9:[address] [facility] TRANSPARENCY CLEAR 10/15/2024 9:[address] [facility] SPECIFIC GRAVITY (U) 1.048(H) 1.001 - 1.030 10/15/2024 9:[address] [facility] U PH 7.0 5.0 - 9.0 10/15/2024 9:[address] [facility] LEUKOCYTES (U) NEGATIVE NEGATIVE 10/15/2024 9:[address] [facility] NITRITES NEGATIVE NEGATIVE 10/15/2024 9:[address] [facility] PROTEIN RANDOM (U) NEGATIVE <30 MG/DL 10/15/2024 9:[address] [facility] GLUCOSE (U) NORMAL NORMAL MG/DL 10/15/2024 9:[address] [facility] KETONES MG/DL (U) 80(A) NEGATIVE MG/DL 10/15/2024 9:[address] [facility] UROBILINOGEN NORMAL NORMAL MG/DL 10/15/2024 9:[address] [facility] BILIRUBIN (U) NEGATIVE NEGATIVE MG/DL 10/15/2024 9:[address] [facility] BLOOD (U) 3+(A) NEGATIVE 10/15/2024 9:[address] [facility] MUCUS RARE /LPF 10/15/2024 9:[address] [facility] WBC/HPF 1 <6 /HPF 10/15/2024 9:[address] [facility] RBC/HPF 9(H) <6 /HPF 10/15/2024 9:[address] [facility] SQUAMOUS EPITHELIALS RARE /HPF 10/15/2024 9:[address] [facility] URINE SPECIMEN OBTAINED BY CLEAN CATCH PROCEDURE / Unknown 10/15/2024 8:57 AM CDT Coy Doll MD URINE ORDERABLES Alina mikal Result [facility] [address] [place] [address], * CT ABD+PEL W CON (10/15/2024 8:40 AM CDT) Anatomical Region Laterality Modality Abdomen Computed Tomogra phy 10/15/2024 8:49 AM CDT Impressions 10/15/2024 8:57 AM CDT =====IMPRESSION:===== No acute abnormality is demonstrated. Ordered By: COY DOLL Interpreted By: Coy Vazquez MD, 10/15/2024 8:49 AM Narrative 10/15/2024 8:57 AM CDT [facility] [address] [place], [place] [address] EXAMINATION: CT Abdomen and Pelvis with contrast [...] Procedure Note Coy Vazquez MD - 10/15/2024 [facility] [address] [place], [place] [address] EXAMINATION: CT Abdomen and Pelvis with contrast [...] - 0.49 NG/ML 10/15/2024 2:37 PM CDT [facility] 10/15/2024 7:11 AM CDT Mere Mckeon NP LABORATORY Final Result [facility] [address] [place] [address], [place] [phone] from Last 3 Months Insurance [employer] Directives * Full Code (Latest Code Status on File) Date Activated Date Inactivated Comments 10/15/2024 11:57 AM 10/17/2024 1:13 PM * Full Code Date Activated Date Inactivated Comments 04/29/2021 6:21 PM 04/30/2021 5:56 PM Care Teams [facility] Electronic Relationship Specialty Start Date End Date Jordyn Michel FNP [address] [place] [id number] PCP - General Nurse Practitioner Family 04/30/21
--- OUTSIDE RECORDS SUMMARY | 2024-12-15 00:26 | XMS_ITS | Clinical Summary ---
Author Organization [facility] Address [address] [place] [address] Care Team Providers Care Electronic Sales And Service Technician Name Role Phone Dionne Forde Primary Care Provider [phone] Allergies Active Allergy Reactions Criticality Noted Date Comments Prochlorperazine Anxiety Low 07/03/2017 Metoclopramide Hcl Anxiety Low 07/03/2017 Medications acetaminophen (TYLENOL) 325 mg tablet Take 2 tablets (650 mg total) by mouth every 6 (six) [...] 90 capsule 3 11/05/19 25 026 Active Additional Information Patient not taking.Reported on 11/24/2024 potassium chloride ER (KLOR-CON) 20 mEq CR tablet Take 2 tablets (40 mEq total) by mouth 2 (two) times a day for 7 days 28 tablet 11/05/19 25 Active FLUoxetine (PROzac) 20 mg capsule Take 1 capsule (20 mg total) by mouth daily 90 capsule 11/29/19 25 026 Active Active Problems Problem Noted Date Diagnosed Date Menorrhagia 12/07/2024 Gastritis 12/07/2024 Generalized anxiety disorder 12/07/2024 BMI 21.0-21.9, adult 11/28/2024 Assessment & Plan (11/28/2024 10:07 AM CDT): Weight/BMI is in healthy range. Continue healthy lifestyle to maintain. Chronic constipation 11/25/2024 Family history of colon cancer in father 025 Nausea and vomiting 11/04/2024 Gastroesophageal reflux disease 11/04/2024 Intractable vomiting 02/11/2020 Assessment & Plan (02/11/2020 11:49 AM COMBINE MECHANIC): Yaa and Bry6. Discussed signs and symptoms of Severe Dehydration. Fiber Supplement for Constipation. Follow up with OB Less than 8 weeks gestation of 020 Assessment & Plan (01/15/2020 4:53 PM COMBINE MECHANIC): Discussed briefly dos and don'ts of pregnancies. Anticipate normal risk . Recommend Tobacco Cessation. Discontinue Klonopin/Tramadol/Flexeri and take them only PRN. Contact OB-MARINE EQUIPMENT DESIGN ENGINEER cain. Referral. Encounters Date Type Department Care Team Description 12/14/19 Results Follow-Up [facility] Medicine [address] [place] [phone] Dionne Forde PA TSH, T4, free, T3, free, Additional followed-up results: 7 11/29/19 10:00 AM CDT Office Visit [facility] Family Medicine [address] [address] [place] [phone] Dionne Forde PA Annual physical exam (Primary Dx); Nausea and vomiting, unspecified vomiting type; Menorrhagia with regular cycle; Anemia, unspecified type; Gastritis without bleeding, unspecified chronicity, unspecified gastritis type; Generalized anxiety disorder; BMI 21.0-21.9, adult 11/27/19 Results Follow-Up [facility] Gastroenterology at [address] [place] [address] Guicho Thomas, DO Surgical pathology 11/26/19 9:30 AM CDT - 11/26/19 9:51 AM CDT Surgery [address] [address] Guicho Thomas, DO ESOPHAGOGASTRODUODENOSCOPY BIOPSY 11/26/19 8:09 AM CDT Anesthesia Event [address] [address] Toy Montalvo, DO 11/26/19 7:29 AM CDT - 11/26/19 9:10 AM CDT Hospital Encounter [address] [address] Guicho Thomas, DO Nausea and vomiting, unspecified vomiting type; Gastroesophageal reflux disease, unspecified whether esophagitis present Discharge Disposition: Discharge to home or self care 11/26/19 Telephone [facility] Gastroenterology at [address], [place] [address] Filomena Braxton 11/21/19 Telephone [facility] Gastroenterology at [address] [place] [address] Candace Braxton MA 11/05/19 9:55 AM CDT Lab [address] Abdominal pain; Gastroesophageal reflux disease, unspecified whether esophagitis present; Nausea and vomiting, unspecified vomiting type; Weight loss 11/05/19 9:00 AM CDT Office Visit [facility] Gastroenterology at [address] [address] Guicho Thomas, DO Abdominal pain (Primary Dx); Gastroesophageal reflux disease, unspecified whether esophagitis present; Nausea and vomiting, unspecified vomiting type; Weight loss; Family history of colon cancer; Chronic idiopathic constipation 11/05/19 Telephone [facility] Gastroenterology at [address], [place] [address] DeniseAugust grace [place] 11/05/19 25 Results Follow-Up [facility] Gastroenterology at [address] [place] [address] Guicho Thomas, DO Folate, Iron profile w/ IBC, Vitamin B12, Additional followed-up results: 13 11/05/19 25 Orders Only [facility] Gastroenterology at [address] [place] [address] Guicho Thomas, DO Hypokalemia (Primary Dx) 11/05/19 25 Telephone [facility] Gastroenterology at [address] [place] [address] Deya Cleary LPN 10/29/19 25 Telephone [facility] Gastroenterology at [address] [place] [address] Filomena Braxton from Last 3 Months Immunizations Immunization Administration Dates Next Due Influenza, Unspecified 02/06/2024(Deferred: Adriana ent Refused) Surgical History Surgery Date Site/Laterality Comments TYMPANOSTOMY TUBE PLACEMENT ESOPHAGOGASTRODUODENOSCOPY COLONOSCOPY TONSILLECTOMY TUBAL LIGATION 08/06/2023 - 09/05/2023 ESOPHAGOGASTRODUODENOSCOPY 11/25/2024 Medical History Medical History Date Comments SONIDO (generalized anxiety disorder) Marijuana use MDD (major depressive disorder) Asthma Tobacco abuse Chronic idiopathic constipation IBS (irritable colon syndrome) Family History Medical History Relation Name Comments Colon cancer Father Anxiety disorder Mother Asthma Mother COPD Mother Diverticulitis Mother Drug abuse Mother Dysphagia Mother Fibromyalgia Mother Hyperlipidemia Mother Hypertension Mother brain tumor Sister Donna Relation Name Status Comments Father Mother Alive Sister Donna Social History Tobacco Use Types Packs/Day Years Used Date Smoking Tobacco: Every Day Vaping Smokeless Tobacco: Never Tobacco Cessation:Ready to Q [...] on file Legal Sex Female 7:26 AM COMBINE MECHANIC Gender Identity Not on file Sexual Orientation Not on file Last Filed Vital Signs Vital Sign Reading Time Taken Comments Blood Pressure 110/60 11/28/2024 10:01 AM CDT Pulse 69 11/28/2024 10:01 AM CDT Temperature 36.6 C (97.9 F) 11/28/2024 10:01 AM CDT Respiratory Rate 17 11/25/2024 8:50 AM CDT Oxygen Saturation 98% 11/28/2024 10:01 AM CDT Inhaled Oxygen Concentration - - Weight 54 kg (119 lb) 11/28/2024 10:01 AM CDT Height 157.5 cm (5' 2) 11/28/2024 10:01 AM CDT Body Mass Index 21.77 11/28/2024 10:01 AM CDT Plan of Treatment Upcoming Encounters Date Type Department Care Team (Late st Contact Info) Description 03/11/2025 12:00 PM COMBINE MECHANIC Hospital Encounter [address] [address] Guicho Thomas DO [address] [place] [address] 03/11/2025 12:00 PM COMBINE MECHANIC - 03/11/2025 12:30 PM COMBINE MECHANIC Surgery [address] [address] Guicho Thomas DO [address] [place] [address] COLONOSCOPY Scheduled Procedures Name Priority Associated Diagnoses Date/Ti me COLONOSCOPY Chronic constipation Family history of colon cancer in father 03/11/2025 12:00 PM COMBINE MECHANIC Health Maintenance Due Date Last Done Comments Cervical Cancer Screening 1995 HPV Vaccines (2 - 2-dose series) 04/05/2009 10/07/19 09 Pneumococcal vaccine <65 (1 of 2 - PCV) 2016 Influenza Vaccine (#1) 2024 6, 11/09/2009, 11/15/2007, Additional history exists Depression Screening 11/28/2025 11/28/2024, 12/08/19 20 Regular Well Visit/Exam 18-64 11/28/2025 11/28/2024, 12/08/2019 DTaP/Tdap/Td Vaccine (8 - Td or Tdap) 09/18/2030 09/18/2020, 09/05/2007, 05/30/2001, Additional history exists Varicella Vaccines Discontinued 02/07/2007, 03/29/1998 Hepatitis B Screening Completed 11/04/2024 , [birth year], Additional history exists Hepatitis C Screening Completed 11/04/2024 Procedures Procedure Name Priority Date/Time Associated Diagnosis Comments CBC WITH AUTO DIFFERENTIAL Routine 12/11 11:56 AM COMBINE MECHANIC COMPREHENSIVE METABOLIC PANEL Routine 11:56 AM COMBINE MECHANIC MAGNESIUM Routine 12/11/2024 11:56 AM COMBINE MECHANIC FERRITIN Routine 12/11/2024 11:56 AM COMBINE MECHANIC Anemia, unspecified type IRON PROFILE W/ IBC Routine 12/11/2024 11:56 AM COMBINE MECHANIC Anemia, unspecified type CALCIUM, IONIZED Routine 12/11/2024 11:56 AM COMBINE MECHANIC Nausea and vomiting, unspecified vomiting type PTH Routine 12/11/2024 11:56 AM COMBINE MECHANIC Nausea and vomiting, unspecified vomiting type T3, FREE Routine 12/11/2024 11:56 AM COMBINE MECHANIC Nausea and vomiting, unspecified vomiting type T4, FREE Routine 12/11/2024 11:56 AM COMBINE MECHANIC Nausea and vomiting, unspecified vomiting type TSH Routine 12/11/2024 11:56 AM COMBINE MECHANIC Nausea and vomiting, unspecified vomiting type SURGICAL PATHOLOGY STAT 11/25/2024 12:08 PM CDT Nausea and vomiting, unspecified vomiting type Gastroesophageal reflux disease, unspecified whether esophagitis present ESOPHAGOGASTRODUODENOSCOPY BIOPSY 11/25/2024 8:04 AM CDT Nausea and vomiting, unspecified vomiting type Gastroesophageal reflux disease, unspecified whether esophagitis present EGD 11/25/2024 7:31 AM CDT SCAN - LABS 11/10/2024 EGFR Routine 11/04/2024 10:06 AM CDT Abdominal pain Gastroesophageal reflux disease, unspecified whether esophagitis present Nausea and vomiting, unspecified vomiting type Weight loss DIFFERENTIAL AUTO Routine 11/04/2024 10:06 AM CDT Abdominal pain Gastroesophageal reflux disease, unspecified whether esophagitis present Nausea and vomiting, unspecified vomiting type Weight loss HEPATIC FUNCTION PANEL Routine 10:06 AM CDT Abdominal pain Gastroesophageal reflux disease, unspecified whether esophagitis present Nausea and vomiting, unspecified vomiting type Weight loss CBC WITH AUTO DIFFERENTIAL Routine 11/04 10:06 AM CDT Abdominal pain Gastroesophageal reflux [...] Weight loss CRP (ACUTE PHASE) Routine 11/04/2024 10:06 AM CDT Abdominal pain Gastroesophageal reflux disease, unspecified whether esophagitis present Nausea and vomiting, unspecified vomiting type Weight loss THYROID FUNCTION CASCADE Routine 025 10:06 AM CDT Abdominal pain Gastroesophageal reflux [...] loss IRON PROFILE W/ IBC Routine 11/04/2024 10:06 AM CDT Abdominal pain Gastroesophageal reflux disease, unspecified whether esophagitis present Nausea and vomiting, unspecified vomiting type Weight loss FOLATE Routine 11/04/2024 10:06 AM CDT Abdominal pain Gastroesophageal reflux disease, unspecified whether esophagitis present Nausea and vomiting, unspecified vomiting type Weight loss HEPATITIS PANEL, ACUTE Routine 10:06 AM CDT Abdominal pain Gastroesophageal reflux disease, unspecified whether esophagitis present Nausea and vomiting, unspecified vomiting type Weight loss HEPATITIS A ANTIBODY, TOTAL Routine 10/08 10:06 AM CDT Abdominal pain Gastroesophageal reflux disease, unspecified whether esophagitis present Nausea and vomiting, unspecified vomiting type Weight loss HEPATITIS B SURFACE ANTIBODY (IMMUNE STATUS) Routine 11/04/2024 10:06 AM CDT Abdominal pain Gastroesophageal reflux disease, unspecified whether esophagitis present Nausea and vomiting, unspecified vomiting type Weight loss from Last 3 Months Results * Calcium, ionized (12/11/2024 11:56 AM COMBINE MECHANIC) Calcium, Ionized 5.1 4.7 - 5.5 mg/dL [facility] Blood 12/11/2024 11:5 6 AM COMBINE MECHANIC 12/11/2024 11:56 AM COMBINE MECHANIC Narrative [facility] - 12/12/2024 9:47 AM COMBINE MECHANIC FASTING:NO FASTING: NO Dionne العراقي LAB BLOOD ORDERABLES Final Result [facility] [address] [place] [address] * Iron profile w/ IBC (12/11/2024 11:56 AM COMBINE MECHANIC) Iron 82 40 - 190 mcg/dL [facility] TIBC 393 250 - 450 mcg/dL (calc) [facility] Iron saturation 21 16 - 45 % (calc) [facility] Blood 12/11/2024 11:5 6 AM COMBINE MECHANIC 12/11/2024 11:56 AM COMBINE MECHANIC Narrative [facility] - 12/12/2024 9:47 AM COMBINE MECHANIC FASTING:NO FASTING: NO Dionne العراقي LAB BLOOD ORDERABLES Final Result [facility] [address] [place] [address] * (ABNORMAL) CBC with auto differential (12/11/2024 11:56 AM COMBINE MECHANIC) Pathologist [facility] WBC 6.2 3.8 - 10.8 Thousand/u L [facility] RBC, POC 3.95 3.80 - 5.10 Million/uL [facility] Hgb 12.2 11.7 - 15.5 g/dL [facility] Hct 38.1 35.0 - 45.0 % [facility] MCV 96.5 80.0 - 100.0 fL [facility] MCH 30.9 27.0 - 33.0 pg [facility] MCHC 32.0 32.0 - 36.0 g/dL [facility] Comment: For adults, a slight decrease in the calculated MCHC value (in the range of 30 to 32 g/dL) is most likely not clinically significant; however, it should be interpreted with caution in correlation with other red cell parameters and the patient's clinical condition. Rdw 11.5 11.0 - 15.0 % [facility] Platelets 199 140 - 400 Thousand/u L [facility] MPV 12.9(H) 7.5 - 12.5 fL [facility] Neutrophils, abs 3,360 1,500 - 7,800 cells/uL [facility] Lymphocytes, abs 2,170 850 - 3,900 cells/uL [facility] Monocyte abs 508 200 - 950 cells/uL [facility] Eosinophils, abs 130 15 - 500 cells/uL [facility] Basophils, abs 31 0 - 200 cells/uL [facility] Neutrophils 54.2 % [facility] Lymphocyte pct 35.0 % [facility] Monocytes 8.2 % [facility] Eosinophils 2.1 % [facility] Basophils 0.5 % [facility] 12/11/2024 11:5 6 AM COMBINE MECHANIC 12/11/2024 11:56 AM COMBINE MECHANIC Narrative [facility] - 12/12/2024 9:47 AM COMBINE MECHANIC FASTING:NO FASTING: NO Dionne العراقي LAB BLOOD ORDERABLES Final Result Performing Organization Address [facility] Co de Phone Number [facility] [address] [place] [address] * T3, free (12/11/2024 11:56 AM COMBINE MECHANIC) Free T3 3.0 2.3 - 4.2 pg/mL [facility] Blood 12/11/2024 11:5 6 AM COMBINE MECHANIC 12/11/2024 11:56 AM COMBINE MECHANIC Narrative [facility] - 12/12/2024 9:47 AM COMBINE MECHANIC FASTING:NO FASTING: NO Dionne العراقي LAB BLOOD ORDERABLES Final Result Performing Organization Address [facility] Co de Phone Number [email or web address] [address] [place] [address] * TSH (12/11/2024 11:56 AM COMBINE MECHANIC) TSH 0.79 mIU/L [email or web address] Comment: Reference Range > or = 20 Years 0.40-4.50 Ranges First trimester 0.26-2.66 Second trimester 0.55-2.73 Third trimester 0.43-2.91 Blood 12/11/2024 11:5 6 AM COMBINE MECHANIC 12/11/2024 11:56 AM COMBINE MECHANIC Narrative [facility] - 12/12/2024 9:47 AM COMBINE MECHANIC FASTING:NO FASTING: NO Dionne العراقي LAB BLOOD ORDERABLES Final Result Performing Organization Address City/[facility]/ZIP Co de Phone Number [email or web address] [address] [place] [address] * T4, free (12/11/2024 11:56 AM COMBINE MECHANIC) Free T4 1.0 0.8 - 1.8 ng/dL [facility] Blood 12/11/2024 11:5 6 AM COMBINE MECHANIC 12/11/2024 11:56 AM COMBINE MECHANIC Narrative [facility] - 12/12/2024 9:47 AM COMBINE MECHANIC FASTING:NO FASTING: NO Dionne العراقي LAB BLOOD ORDERABLES Final Result Performing Organization Address City/[facility]/ZIP Co de Phone Number [facility] [address] [place] [address] * PTH (12/11/2024 11:56 AM COMBINE MECHANIC) Parathyroid hormone, intact 34 16 - 77 pg/mL [facility] Comment: Interpretive Guide Intact PTH Calcium ------- Normal Parathyroid Normal Normal Hypoparathyroidism Low or Low Normal Low Hyperparathyroidism Primary Normal or High High Secondary High Normal or Low Tertiary High High Non-Parathyroid Hypercalcemia Low or Low Normal High Blood 12/11/2024 11:5 6 AM COMBINE MECHANIC 12/11/2024 11:56 AM COMBINE MECHANIC Narrative [facility] - 12/12/2024 9:47 AM COMBINE MECHANIC FASTING:NO FASTING: NO Dionne العراقي LAB BLOOD ORDERABLES Final Result [facility] [address] [place] [address] * Magnesium (12/11/2024 11:56 AM COMBINE MECHANIC) Magnesium 2.2 1.5 - 2.5 mg/dL [email or web address] 12/11/2024 11:5 6 AM COMBINE MECHANIC 12/11/2024 11:56 AM COMBINE MECHANIC Narrative [facility] - 12/12/2024 9:47 AM COMBINE MECHANIC FASTING:NO FASTING: NO Dionne العراقي LAB BLOOD ORDERABLES Final Result [facility] [address] [place] [address] * (ABNORMAL) Ferritin (12/11/2024 11:56 AM COMBINE MECHANIC) Ferritin 8(L) 16 - 154 ng/mL [facility] Blood 12/11/2024 11:5 6 AM COMBINE MECHANIC 12/11/2024 11:56 AM COMBINE MECHANIC Narrative [facility] - 12/12/2024 9:47 AM COMBINE MECHANIC FASTING:NO FASTING: NO Dionne العراقي LAB BLOOD ORDERABLES Final Result [facility] [address] [place] [address] * Comprehensive metabolic panel (12/11/2024 11:56 AM COMBINE MECHANIC) Glucose 76 65 - 139 mg/dL [facility] Comment: Non-fasting reference interval BUN 10 7 - 25 mg/dL [facility] Creatinine 0.61 0.50 - 0.96 mg/dL [facility] eGFR 126 > OR = 60 mL/min/1.7 3m2 [facility] BUN/creat ratio SEE NOTE: 6 - 22 (calc) [facility] Comment: Not Reported: BUN and Creatinine are within reference range. Sodium 138 135 - 146 mmol/L [facility] Potassium, pl 4.0 3.5 - 5.3 mmol/L [email or web address] Chloride 103 98 - 110 mmol/L [email or web address] CO2 30 20 - 32 mmol/L [facility] Calcium 9.4 8.6 - 10.2 mg/dL [email or web address] Protein, sr 6.7 6.1 - 8.1 g/dL [email or web address] Albumin 4.7 3.6 - 5.1 g/dL [facility] GLOBULIN 2.0 1.9 - 3.7 g/dL (calc) [facility] Alb/glob ratio 2.4 1.0 - 2.5 (calc) [facility] Bilirubin, total 0.4 0.2 - 1.2 mg/dL [facility] Alk phos 49 31 - 125 U/L [facility] AST 11 10 - 30 U/L [facility] ALT (SGPT) 8 6 - 29 U/L [facility] 12/11/2024 11:5 6 AM COMBINE MECHANIC 12/11/2024 11:56 AM COMBINE MECHANIC Narrative [facility] - 12/12/2024 9:47 AM COMBINE MECHANIC FASTING:NO FASTING: NO us Dionne العراقي LAB BLOOD ORDERABLES Final Result [facility] [address] [place] [address] * Surgical pathology (11/25/2024 12:08 PM CDT) Tissue (Gastric/Stomach biopsy) 11/25/2024 8:19 AM CDT Comment:Gastric biopsies - S tain for H. Pylori Narrative [facility] [place] - 11/26/2024 9:33 AM CDT EPIC results best viewed via link to PDF [facility] Department of Pathology [address] [place] [address] Note to Patients: This report may contain a detailed description of human tissue sent by a health care provider to the laboratory for pathologic evaluation. The content of this report is essential for diagnosis and may provide important critical findings. This information may be unfamiliar to patients to review without a medical professional present. It is advised that the patient review this report in the presence of a health care provider who can answer questions and explain the details. Final Report Patient Name: GIANNA CUEVAS Address: [facility] [place] [address] Gender: F : 1995 (Age: 29) Service: Gastro Location: [facility] #: [id number] Patient Type: [facility] Taken: 11/25/2024 Received: 11/25/2024 Accessioned: 11/25/2024 Reported: 11/26/2024 Physician(s):Dr. Guicho Thomas D.O. Diagnosis: Stomach, biopsy: - Antral type gastric mucosa showing mild chronic inactive gastritis. - Negative for intestinal metaplasia and dysplasia. - Negative for Helicobacter. Tim Martinez M.D. Report Electronically Reviewed and Signed Out By Tim Martinez M.D. 11/26/2024 09:33:22 Specimen(s) Received: A: Gastric biopsies Microscopic Description: Sections show antral-type gastric mucosa showing mild chronic inactive gastritis. No significant acute inflammatory infiltrate is seen. There is no evidence of intestinal metaplasia or dysplasia. On high power examination, no Helicobacter-like organisms are seen on H&E stain. Clinical History: Nausea and vomiting. GERD. EGD. Gross Description: The specimen is submitted in a single formalin filled container labeled GIANNA ALFRED and gastric biopsies. It is 3 fragments of hewitt tissue between 1 and 5 mm. All in one cassette. Shawn Payton R.N., P.A./Bethanie Webber M.D. REPORT IMAGES AND SCANNED DOCUMENTS, IF INCLUDED, ONLY VIEWABLE IN PDF VERSION OF REPORT The performance characteristics of some immunohistochemical stains, fluorescence in-situ hybridization tests and immunophenotyping by flow cytometry cited in this report (if any) were determined by the Surgical Pathology Department at [facility] as part of an ongoing quality control scientist program and in compliance with federally mandated regulations drawn from the Clinical Laboratory Improvement Act of 1988 (CLIA '88). Some of these tests rely on the use of analyte specific reagents and are subject to specific labeling requirements by the US Food and Drug Administration. Such diagnostic tests may only be performed in a facility that is certified by the Department of Health and Human Services as a high complexity laboratory under CLIA '88. The FDA has determined that such clearance or approval is not necessary. This test is used for clinical purposes. It should not be regarded as investigational or for research. Nevertheless, federal rules concerning the medical use of analyte specific reagents require that the following disclaimer be attached to the report: This test was developed and its performance characteristics determined by the Surgical Pathology Department [facility]. It has not been cleared or approved by the U. S. Food and Drug Administration. Note for decalcified specimens: This assay has not been validated on decalcified tissues. Results should be interpreted with caution given the possibility of false negativity on decalcified specimens Guicho Thomas DO LAB PATHOLOGY ORDERABLES Final Result [facility] [address] [place] [address] * EGD (11/25/2024 7:31 AM CDT) Anatomical Region Laterality Modality Other Narrative Procedure Note Guicho Thomas DO - 11/25/2024 7:31 AM CDT [facility] Patient Name: Gianna Cuevas Procedure Date: 11/25/2024 7:31 AM Date of : 1995 Admit Type: Outpatient Age: 29 Gender: Female Attending MD: Guicho Thomas D.O., Room: [facility] 2 Note Status: Finalized Patient Profile: Refer to note in patient chart for documentation of history and physical. Procedure: Upper GI endoscopy Indications: Nausea with vomiting Referring MD: Dionne Forde PA-C Providers: Guicho Thomas D.O. Impression: - Normal esophagus. - Normal stomach. Biopsied. - Normal examined duodenum. Recommendation: - Await pathology results. - Return to primary care physician (date not yet determined). Medicines: Monitored Anesthesia Care Complications: No immediate complications. Estimated Blood Loss: Estimated blood loss was minimal. Procedure: Pre-Anesthesia Assessment: - As per anesthesia. The benefits, risks, and alternatives to theprocedure and sedation were discussed and informed consentwas obtained. The scope was passed under direct vision. The Endoscope [id number]-[id number] was introduced through the mouth, and advanced to the second partof duodenum. The upper GI endoscopy was accomplished without difficulty. The patient tolerated the procedure well. Findings: The examined esophagus was normal. The entire examined stomach was normal. Biopsies were taken with acold forceps for Helicobacter pylori testing. The examined duodenum was normal. Electronically signed by Guicho Thomas M.D. Guicho Thomas D.O. 11/25/2024 8:19:54 AM Number of Addenda: 0 Note Initiated On: 11/25/2024 7:31 AM Procedure Code(s): --- Professional --- 58605, Esophagogastroduodenoscopy, flexible, transoral; with biopsy, single or multiple --- Technical --- 51047, Esophagogastroduodenoscopy, flexible, transoral; with biopsy, single or multiple Diagnosis Code(s): --- Professional --- R11.2, Nausea with vomiting, unspecified --- Technical --- R11.2, Nausea with vomiting, unspecified CPT copyright 2022 [employer]. All rights reserved. The codes documented in this report are preliminary and upon programmer business reviewmay be revised to meet current compliance requirements. Recognized by the [employer] for promoting quality in endoscopy us Guicho Thomas DO ENDOSCOPY PROCEDURES Final Res ult * SCAN - LABS (11/10/2024) Provider Scanning Final Result * eGFR (11/04/2024 10:06 AM CDT) eGFR [...] LAB BLOOD ORDERABLES Final Res ult [facility] 1 [facility] [place] [address] * Differential, auto (11/04/2024 10:06 AM CDT) Neutrophil abs 6.47 1.50 - 6.50 K/cumm Imm gran abs 0.04 0.00 - 0.10 K/cumm [facility] ([place]) Lymphocyte abs 1.30 0.80 - 3.30 K/cumm [facility] ([place]) Monocyte abs 0.66 0.20 - 0.80 K/cumm [facility] ([place]) Eosinophil abs 0.02 0.00 - 0.50 K/cumm [...] LAB BLOOD ORDERABLES Final Res ult [facility] ([place]) 1 [facility] Department [place] [address] * Thyroid Function [place] (11/04/2024 10:06 AM CDT) TSH 0.45 0.30 - 4.20 mcIUnit/mL [facility]) Blood 11/04/2024 10:0 6 AM CDT 11/04/2024 10:50 AM CDT Guicho Thomas DO LAB BLOOD ORDERABLES Final Res ult Performing Organization Address [facility] Co de Phone Number [facility] ([place]) 1 [facility] [place] [address] * (ABNORMAL) Iron profile w/ IBC (11/04/2024 10:06 AM CDT) Pathologist [facility] Iron 48 35 - 145 mcg/dL [facility] TIBC 329 250 - 400 mcg/dL [facility]) Transferrin saturation 15(L) 20 - 50 % [facility]) Blood 11/04/2024 10:0 6 AM CDT 11/04/2024 10:50 AM CDT Guicho Thomas DO LAB BLOOD ORDERABLES Final Res ult Performing Organization Address [facility] de Phone Number [facility] ([place]) 1 [facility] [place] [address] * (ABNORMAL) CBC with auto differential (11/04/2024 10:06 AM CDT) Pathologist [facility] WBC 8.52 3.80 - 9.90 K/cumm Hgb 15.3 11.9 - 15.5 g/dL [facility] Hct 43.0 35.6 - 45.5 % [facility] Plt 312 150 - 400 K/cumm [facility] MPV 13.2(H) 9.1 - 12.3 fL [facility] RBC 4.97 3.90 - 5.20 M/cumm [facility]) MCV 86.5 81.3 - 96.4 fL [facility]) MCH 30.8 27.1 - 33.3 pg [facility] MCHC 35.6 32.3 - 35.7 g/dL [facility]) RDW CV 12.6 11.1 - 14.9 % [facility] RDW SD 39.2 35.7 - 48.1 fL [facility] NRBC abs 0.00 0.00 - 0.01 K/cumm [facility]) Blood 11/04/2024 10:0 6 AM CDT 11/04/2024 10:50 AM CDT Guicho Thomas LAB BLOOD ORDERABLES Final Res ult Performing Organization Address [facility] Co de Phone Number [facility]) 1 [facility] [employer] [place] [address] * Copper, serum (11/04/2024 10:06 AM CDT) [facility] Copper 99 77 - 206 mcg/dL [facility] Comment: ADDITIONAL INFORMATION This test was developed and its performance characteristics determined by [facility] in a manner consistent with CLIA requirements. This test has not been cleared or approved by the U.S. Food and Drug Administration. Test Performed by: [facility] - [address] [address] Orthotic Finish Grinding Technician: Sondra Miranda Ph.D.; CLIA# [id number] Blood 11/04/2024 10:0 6 AM CDT 11/04/2024 10:50 AM CDT Guicho Thomas LAB BLOOD ORDERABLES Final Res ult Performing Organization Address [facility] Co de Phone Number [facility] 1 [facility] [employer] [place] [address] [place] [facility] * (ABNORMAL) Hepatitis A antibody, total Blood (11/04/2024 10:06 AM CDT) Hep A total Reactive( A) Nonreactive Comment:Testing performed by : [facility], [address] [place]., [address] Blood 11/04/2024 10:0 6 AM CDT 11/04/2024 3:25 PM CDT Guicho Thomas DO LAB MICROBIOLOGY - GENERAL ORD ERABLES Final Result [facility] ([place]) 1 [facility] Department [place] [address] * Hepatitis panel, acute Blood (11/04/2024 10:06 AM CDT) Hep A IgM Nonreactive Nonreactive Comment: Interpretive Data: If Hep A IgM Ab is reported as Equivocal, a new sample should be drawn in two weeks for testing. Current interpretive data was last revised on 19. Testing performed by: [facility], [address] [place] [address]., [id number] Hep B core IgM Nonreactive Nonreactive [facility] ([place]) Comment: Interpretive Data If HepB Core IgM Ab is reported as Equivocal, a new sample should be drawn in two weeks for testing. Current interpretive data was last revised on 19. Testing performed by: [facility], [address] [place] [address]., [id number] Hep C Ab Nonreactive Nonreactive [facility] [...] last revised on 2019. Testing performed by: [facility], [address] [place] [address]., [address] HepBsAg Nonreactive Nonreactive [facility] ([place]) Comment:Testing performed by : [facility], [address] [place] [address]., [id number] Blood 11/04/2024 10:0 6 AM CDT 11/04/2024 4:58 PM CDT Guicho Thomas DO LAB MICROBIOLOGY - GENERAL ORD ERABLES Final Result Performing Organization Address [facility] Co de Phone Number [facility] 1 [facility] [place] [address] * Hepatitis B surface antibody (immune status) [...] last revised on 19. Testing performed by: [facility], [address] [place] [address]., [id number] Blood 11/04/2024 10:0 6 AM CDT 11/04/2024 4:58 PM CDT Guicho Thomas DO LAB MICROBIOLOGY - GENERAL ORD ERABLES Final Result Performing Organization Address [facility] Co de Phone Number [facility] ([place] 1 [facility] [place] [address] * Protime-INR (11/04/2024 10:06 AM CDT) PT 13.1 10.2 - 13.5 sec [facility]) INR 1.16 0.90 - 1.20 [facility] Comment: Interpretive data Oral anticoagulant therapeutic ranges: Venous thromboembolism prophylaxis or treatment: 2.0-3.0 CARDIOLOGY Standard range: 2.0-3.0 High-intensity range: 2.5-3.5 Refer to indication-specific guidelines for appropriate target ranges for prosthetic heart valve replacement. Current interpretive data was last revised on 2019. Blood 11/04/2024 10:0 6 AM CDT 11/04/2024 10:50 AM CDT Guicho Thomas DO LAB BLOOD ORDERABLES Final Res ult [facility] 1 [facility] [place] [address] * CRP (acute phase) (11/04/2024 10:06 AM CDT) CRP <3.0 <=10.0 mg/L [facility]) Blood 11/04/2024 10:0 6 AM CDT 11/04/2024 10:50 AM CDT Guicho Thomas DO LAB BLOOD ORDERABLES Final Res ult Performing Organization Address [facility] Co de Phone Number [facility] ([place]) 1 [facility] [place] [address] * TSH (11/04/2024 10:06 AM CDT) Thyroid Stimulating Hormone 0.45 0.30 - 4.20 mcIUnit/mL [facility]) Blood 11/04/2024 10:0 6 AM CDT 11/04/2024 10:50 AM CDT Guicho Thomas DO LAB BLOOD ORDERABLES Final Res ult [facility] 1 [facility] [place] [address] * Phosphorus (11/04/2024 10:06 AM CDT) Phosphorus, pl 3.1 2.3 - 4.5 mg/dL [facility] ([place]) Blood 11/04/2024 10:0 6 AM CDT 11/04/2024 10:50 AM CDT Guicho Thomas DO LAB BLOOD ORDERABLES Final Res ult [facility] ([place]) 1 [facility] [place] [address] * Magnesium (11/04/2024 10:06 AM CDT) Magnesium 2.1 1.4 - 2.5 mg/dL [facility] ([place]) Blood 11/04/2024 10:0 6 AM CDT 11/04/2024 10:50 AM CDT Guicho Thomas DO LAB BLOOD ORDERABLES Final Res ult [facility] ([place]) 1 [facility] [place] [address] * Folate (11/04/2024 10:06 AM CDT) Folic acid 16.6 >=5.0 ng/mL [facility] ([place]) Blood 11/04/2024 10:0 6 AM CDT 11/04/2024 10:50 AM CDT Guicho Thomas DO LAB BLOOD ORDERABLES Final Res ult [facility] 1 [facility] [place] [address] * Ferritin (11/04/2024 10:06 AM CDT) Ferritin 74 13 - 150 ng/mL [facility]) Blood 11/04/2024 10:0 6 AM CDT 11/04/2024 10:50 AM CDT Guicho Thomas DO LAB BLOOD ORDERABLES Final Res ult [facility] ([place] 1 [facility] [place] [address] * (ABNORMAL) Vitamin B12 (11/04/2024 10:06 AM CDT) Vitamin B12 1,461(H) 230 - 1,250 pg/mL [facility] ([place]) Blood 11/04/2024 10:0 6 AM CDT 11/04/2024 10:50 AM CDT Guicho Thomas DO LAB BLOOD ORDERABLES Final Res ult Performing Organization Address [facility] de Phone Number [facility] ([place]) 1 [facility] [place] [address] * (ABNORMAL) Hepatic function panel (11/04/2024 10:06 [...] ORDERABLES Final Res ult Performing Organization Address [facility]/ZIP Co de Phone Number [facility] ([place]) 1 [facility] [place] [address] * (ABNORMAL) Lipid panel (11/04/2024 10:06 AM CDT) [facility] Signature Cholesterol 132 30 - 199 mg/dL [facility] [...] on 2017. Triglycerides 86 <=149 mg/dL [facility] ([place]) Comment: Interpretive Data Ages < [...] revised on 2017. HDL 37(L) >=40 mg/dL [facility] ([place]) Comment: Interpretive Data Ages < [...] on 2017. LDL, calculated 78 <=129 mg/dL [facility] ([place]) Comment: Interpretive Data [...] last revised on 2023. Testing performed by: [place], [address] Non-HDL Cholesterol 95 mg/dL [facility] ([place]) [...] last revised on 2017. Testing performed by: [place], [address] Chol/HDL ratio 4 [facility] ([place]) Comment:Testing performed by : [place], [address] Blood 11/04/2024 10:0 6 AM CDT 11/04/2024 10:50 AM CDT Guicho Thomas DO LAB BLOOD ORDERABLES Final Res ult [facility] ([place]) 1 [facility] Department of Laboratories [place] [address] * (ABNORMAL) Basic metabolic panel (11/04/2024 10:06 AM CDT) Sodium 135 135 - 145 mmol/L [facility] ([place]) Potassium, pl 3.0(C) 3.3 - 4.9 mmol/L [facility] ([place]) Comment:Critical Result call ed by [id number] at 2024-11-04 12:43:32. Result Read Back by [...] Final Res ult [facility] ([place]) 1 [facility] [place] [address] from Last 3 Months Insurance [facility] Advance Directives For more information, please contact: [phone] * Full Code (Latest Code Status on File) Date Activated Date Inactivated Comments 11/25/2024 7:36 AM 11/25/2024 1:21 PM * Full Code Date Activated Date Inactivated Comments 11/25/2024 7:36 AM 11/25/2024 7:36 AM Care Teams Electronic Sales And Service Technician Relationship Specialty Start Date End Date Dionne Forde PA [address] [facility] [address] [place] [address] PCP - General Family Medicine 11/24/24
--- OUTSIDE RECORDS SUMMARY | 2024-12-15 00:26 | XMS_ITS | Clinical Summary ---
Author Organization [facility] Address [address] [place] [address] Phone Care Team Providers Care Postal Carrier Name Role Phone Provider, None Primary Care [...] on file Legal Sex Female 10:42 PM RESUME WRITER Gender Identity Not on file Sexual Orientation Not on file Occupation Industry Job Start Date Job End Date Unemployed Not on file Not on file Not on file Last Filed Vital Signs Vital Sign Reading Time Taken Comments Blood Pressure 111/67 04/12/2021 2:15 PM RESUME WRITER Pulse 82 04/12/2021 2:44 PM RESUME WRITER Temperature 36.5 C (97.7 F) 04/12/2021 9:07 AM RESUME WRITER Respiratory Rate 20 04/12/2021 2:44 PM RESUME WRITER Oxygen Saturation 100% 04/12/2021 2:44 PM RESUME WRITER Inhaled Oxygen Concentration - - Weight 51.3 kg (113 lb) 04/12/2021 9:07 AM RESUME WRITER Height 157.5 cm (5' 2) 04/12/2021 9:07 AM RESUME WRITER Body Mass Index 20.67 04/12/2021 9:07 AM RESUME WRITER Plan of Treatment Health Maintenance Due Date [...] age to complete this topic Insurance MEDICAID [facility] Care Teams Postal Carrier Relationship Specialty Start Date End Date Provider, None [place] PCP - General 11/24/18
[2024-12-15 06:18] VITALS: BP 100/71; PULSE 66; RESP 16; TEMP 37; O2SAT 99
[2024-12-15] MEDS: ACETAMINOPHEN 500 MG TABLET 1000 MG PO (06:30)
[2024-12-15] MEDS: LACTATED RINGERS 1,000 ML 30 ML IV CONT (06:40)
[2024-12-15 07:09] LABS: BEDSIDEPREGUCG Negative (Negative)
--- NOTE | 2024-12-15 07:13 | P.PNAN_ITS ---
Anes - Initial Pre Proc Eval Procedure: Operation Date: 12/15/24 08:00 Proposed Procedures p Hysteroscopy with Hilda Endometrial Ablation - Divya Patel MD Date/Time: 12/15/24 07:13 Surgeon: Dviya Patel MD Pre Op Diagnosis: Menorrhagia Patient Data Age: 29 Gender: F Height: 1.57 m Weight: 53.8 kg Last Vital Signs Temp 37.0 C 12/15/24 06:18 Pulse 66 12/15/24 06:18 Resp 16 12/15/24 06:18 BP 100/71 12/15/24 06:18 Pulse Ox 99 12/15/24 06:18 O2 Del Method Room Air 12/15/24 06:18 Allergies Allergy/AdvReac Type Severity Reaction Status Date / Time haloperidol (From Haldol) AdvReac Intermediate Anxiety Verified 12/15/24 06:51 metoclopramide AdvReac Intermediate Anxiety Verified 12/15/24 06:51 prochlorperazine (From AdvReac Intermediate Anxiety Verified 12/15/24 06:51 Compazine) Home Medications ?Medication ?Instructions ?Recorded ?Confirmed ?Type Lactobacillus 40-Bifidobact 1 cap PO DAILY 12/03/24 History 3-S.thermophilus 100 billion cell capsule (Probiotic) fluoxetine 20 mg capsule (Prozac) 20 mg PO DAILY 12/0312/15/24 History magnesium 1 tablet PO DAILY 12/03/24 1 02/15/24 History Laboratory Tests 12/15/24 07:07 POC Urine HCG, Qual Negative (Negative) Patient hx anesthesia problems: none Family hx anesthesia problems: none Results Review: All pre-operative results and documents have been reviewed as part of the pre- operative evaluation. COUNTS INCLUDE 234 BEDS AT THE [facility] Past Medical History Medical History (normal spontaneous vaginal delivery) 2020-severe hyperemesis, preeclampsia 2023 Anxiety Asthma childhood only Surgical History Surgical History History of bilateral tubal ligation In 2023 bilateral salpingectomies History of tympanostomy Family History Family History Father Alive and well Colon cancer Mother Alive and well Sibling Brain tumor Social History Social History Smoking packs per day: 0.5 Smoking cigarettes per day: 10.0 Years smoked: 10 Smoking pack-years: 5.00 Smoking status: Current every day smoker Tobacco type: e-cigarettes/vaping Second hand tobacco smoke exposure: Yes Smoking end date: 01/06/20 Additional smoking assessment comments: HAS BEEN SMOKING PUFF BAR SINCE NOVEMBER 2019 Alcohol intake: current Alcohol use details: 1/MONTH Substance use: current Substance use type: marijuana Other substance usage details: daily-smoke or vape Do You Feel Safe in your Home?: No Lack of Transportation: No Lack of Food: Never True Current Housing: I Have Housing Concerned About Future Housing: No Difficulty Paying Gas/Electric Bills: No Difficulty Paying for Meds: No Currently Unemployed: No Education: High School Diploma/GED Difficulty w/ Childcare or Family Care: No Living arrangements: with family Gender identity (if verbalized by the patient): Female Spiritual care concerns: No Anes - Eval Final PreProcedure Day of Procedure 12/15/24 07:13 Patient weight: normal Heart: regular rate and rhythm Lungs: clear to auscultation Airway: Mallampati scale class II Neurological: alert and oriented Last oral intake: >/= 8 hours ASA classification: II Emergent: no Anesthetic plan: proceed Anesthesia type and monitoring: general GIVS and standard monitoring Results Review: All pre-operative results and documents have been reviewed as part of the pre- operative evaluation. Informed Consent: The patient's anesthetic plan and its attendant risks and benefits were discussed with the patient/family/POA. Questions were solicited and answers provided to the satisfaction of the patient/family/POA.
--- NOTE | 2024-12-15 07:17 | WPDHPUPDATE1 ---
History and Physical Update Update Date/Time: 12/15/24 07:17 History and Physical has been reviewed, including an updated exam of the patient. There are NO changes in the patient's condition. Risks, benefits, and alternatives have been discussed and questions answered. Patient agrees to proceed with procedure.
--- NOTE | 2024-12-15 07:17 | PM.HPGS ---
History of Present Illness History of Present Illness Consent: Risks, benefits, and alternatives have been discussed and questions answered. Patient agrees to proceed with procedure. Chief complaint: Menorrhagia Narrative: Aisha Cuevas is a 29 year old female with heavy menstrual cycles. Hysteroscopy D&C was benign in November. Patient has elected to proceed with Hilda endometrial ablation. Risks of infection, bleeding, perforation, and failure were reviewed. Patient voices understanding and agrees to proceed. Review of Systems Review of Systems: not repeated day of surgery; patient states no changes in status PMFSH Past Medical History Medical History (normal spontaneous vaginal delivery) 2020-severe hyperemesis, preeclampsia 2023 Anxiety Asthma childhood only Surgical History Surgical History History of bilateral tubal ligation In 2023 bilateral salpingectomies History of tympanostomy Family History Family History Father Alive and well Colon cancer Mother Alive and well Sibling Brain tumor Social History Social History Smoking packs per day: 0.5 Smoking cigarettes per day: 10.0 Years smoked: 10 Smoking pack-years: 5.00 Smoking status: Current every day smoker Tobacco type: e-cigarettes/vaping Second hand tobacco smoke exposure: Yes Smoking end date: 01/06/20 Additional smoking assessment comments: HAS BEEN SMOKING PUFF BAR SINCE NOVEMBER 2019 Alcohol intake: current Alcohol use details: 1/MONTH Substance use: current Substance use type: marijuana Other substance usage details: daily-smoke or vape Do You Feel Safe in your Home?: No Lack of Transportation: No Lack of Food: Never True Current Housing: I Have Housing Concerned About Future Housing: No Difficulty Paying Gas/Electric Bills: No Difficulty Paying for Meds: No Currently Unemployed: No Education: High School Diploma/GED Difficulty w/ Childcare or Family Care: No Living arrangements: with family Gender identity (if verbalized by the patient): Female Spiritual care concerns: No Meds Home Medications and Allergies Home Medications ?Medication ?Instructions ?Recorded ?Confirmed ?Type Lactobacillus 40-Bifidobact 1 cap PO DAILY 12/03/24 12/15/24 History 3-S.thermophilus 100 billion cell capsule (Probiotic) fluoxetine 20 mg capsule (Prozac) 20 mg PO DAILY 12/03/24 12/15/24 History magnesium 1 tablet PO DAILY 12/03/24 12/15/24 History Allergies Allergy/AdvReac Type Severity Reaction Status Date / Time haloperidol (From Haldol) AdvReac Intermediate Anxiety Verified 12/15/24 06:51 metoclopramide AdvReac Intermediate Anxiety Verified 12/15/24 06:51 prochlorperazine (From AdvReac Intermediate Anxiety Verified 12/15/24 06:51 Compazine) Vital Signs Vital Signs - 24 hr 12/15/24 06:18 Temperature 98.6 F Pulse Rate 66 Respiratory Rate 16 Blood Pressure 100/71 Pulse Oximetry 99 Oxygen Delivery Room Air Exam Const: General: healthy appearing and alert Orientation/consciousness: patient oriented x3 Resp: Effort & Inspection: normal respiratory effort : External Female Exam: normal external appearance Speculum Exam - Vagina: normal appearance of the vagina and normal vaginal discharge Speculum Exam - Cervix: normal appearance of the cervix Bimanual exam- vagina & uterus: uterine size normal and consistency normal Bimanual Exam- Adnexa, other: normal adnexae and No adnexal tenderness Neuro: General: patient oriented x3 Assessment and Plan Assessment and plan (1) Menorrhagia: Code(s): N92.0 - Excessive and frequent menstruation with regular cycle Status: Acute Assessment and Plan: Plan to proceed with Hilda endometrial ablation
[2024-12-15] MEDS: LIDOCAINE 1% LOCAL INJ 10 ML VIAL INFILTRATE (08:16)
[2024-12-15 08:25] VITALS: BP 88/54; PULSE 53; RESP 14; O2SAT 100
--- NOTE | 2024-12-15 08:25 | P.OP_ITS ---
Procedure Note - Detailed Date of Procedure 12/15/24 Pre-op Diagnosis Menorrhagia Post-op Diagnosis Same Procedure Performed Hilda endometrial ablation Surgeon Divya Patel MD Anesthesia MAC and Local Findings The uterus sounds to 9cm and appears grossly normal Description of Procedure The patient was taken to the operating room placed under anesthesia in the dorsal lithotomy position. She was prepped and draped in the usual sterile fashion. [place] speculum was placed in the vagina and the cervix grasped on the anterior lip tenaculum. The cervix was injected with 1 % lidocaine in each quadrant. The uterus is sounded to 9cm. The diagnostic hysteroscope was placed and with now abnormality noted it is removed. The cervix was serially dilated to an 8 [place]. The Hilda device was opened and placed set at 6cm. The cavity assessment passed on the 1st attempt. The treatment cycle lasted a full 2minutes. The Hilda device was removed and the hysteroscope replaced. Good ablation effect is noted. All instruments are removed. Sponge, needle, and instrument counts are correct per the OR staff. The patient is taken to recovery in stable condition. Estimated Blood Loss 5 Drains No Packing No Pathology None sent Complications No immediate complications Condition Stable Disposition PACU
[2024-12-15 08:55] VITALS: BP 101/57; PULSE 43; RESP 14; O2SAT 100
[2024-12-15 09:25] VITALS: BP 105/62; PULSE 54; RESP 16
[2024-12-15] MEDS: ONDANSETRON INJ 4 MG/2 ML VIAL IV PUSH (09:37)
[2024-12-15] MEDS: oxyCODONE HCL (*CRX) 5 MG TAB IR PO (09:37)
[2024-12-15 09:55] VITALS: BP 131/78; PULSE 61; RESP 16
== END 2024-12-15 10:05 | disposition home or self-care (01) ==
PROVIDERS: PCP Physician Assistant; Visit Provider Obstetrics & Gynecology Gynecology
PROC: 0U5B8ZZ Destruction of Endometrium, Via Natural or Artificial Opening Endoscopic (ICD-10-PCS; CPT 58563; principal; 2024-12-15 08:00)
DX: N92.0 Excessive and frequent menstruation with regular cycle (principal); J45.909 Unspecified asthma, uncomplicated; F41.9 Anxiety disorder, unspecified; F17.290 Nicotine dependence, other tobacco product, uncomplicated; F12.90 Cannabis use, unspecified, uncomplicated; Z98.890 Other specified postprocedural states; Z98.51 Tubal ligation status; Z80.0 Family history of malignant neoplasm of digestive organs
CPT/HCPCS: 58563; A9270; J1100; J2003; J2250; J2405; J2704; J3010; J7120

== ENCOUNTER 2024-12-15 18:25 | Emergency (ER) | payer OTHER, SELFPAY ==
--- NOTE | ~2024-12-15 | CT_ITS ---
CT abdomen pelvis w con INDICATION:abd pain, vomiting . COMPARISON: None. TECHNIQUE: Axial images of the abdomen and pelvis were obtained following infusion of 100 mL Isovue 300. Dose optimization technique was utilized. FINDINGS: The lung bases are clear. The liver parenchyma is unremarkable. No intrahepatic mass or ductal dilatation is evident. The gallbladder is unremarkable. The pancreas and spleen are normal in appearance. The adrenal glands are symmetric in size. The kidneys demonstrate symmetric uptake and excretion of contrast. No cystic mass is evident. There is no solid mass. There is no hydronephrosis. Evaluation of the stomach and bowel loops are limited due to lack of oral contrast. The appendix is normal in appearance. There are thickening and induration of the ascending and transverse colon suggestive of colitis. The bladder and rectum are normal. Endometrium is thickened measuring 2.6 cm. There is gas and endometrium. Left adnexal cyst measures 2.3 cm. No free intraperitoneal fluid or air is evident. There is no significant retroperitoneal lymphadenopathy. The aorta, visceral vessels and renal arteries demonstrate normal caliber and patency. The lower thoracic and lumbar vertebrae are in normal alignment. IMPRESSION: Thickened endometrium measuring 2.6 cm containing gas. Adnexal cyst measures 2.3 cm. Follow-up pelvic ultrasound is recommended. There is thickening and induration of the colon suggestive of colitis. All CT scans at this facility are performed using low dose modulation techniques as appropriate to perform exam including the following: automated exposure control; use of iterative reconstruction technique; adjustment of the mA and/or kV according to patient size (this includes techniques or standardized protocols for targeted exams where dose is matched to indication/reason for exam). Reviewed, dictated and finalized at location [facility]. [facility] IMPRESSION: Thickened endometrium measuring 2.6 cm containing gas. Adnexal cyst measures 2.3 cm. Follow-up pelvic ultrasound is recommended. There is thickening and induration of the colon suggestive of colitis. All CT scans at this facility are performed using low dose modulation techniqu es as appropriate to perform exam including the following: automated exposure c ontrol; use of iterative reconstruction technique; adjustment of the mA and/or kV according to patient size (this includes techniques or standardized protocol s for targeted exams where dose is matched to indication/reason for exam).
[2024-12-15 18:25] VITALS: BP 131/95; PULSE 100; RESP 17; TEMP 36.5; O2SAT 100
--- NOTE | 2024-12-15 18:28 | ED.NAVMDI ---
HPI - Nausea/Vomiting/Diarrhea General Chief complaint: Nausea/Vomiting/Diarrhea <Claudia Sánchez PA-C - Last Filed: 12/16/24 01:39> Stated complaint: n/v <Claudia Sánchez PA-C - Last Filed: 12/16/24 01:39> Time Seen by Provider: 12/15/24 18:28 <Claudia Sánchez PA-C - Last Filed: 12/16/24 01:39> Focused HPI: This is a 29 year old female that presents to the ER for nausea and vomiting. Reports she had a uterine ablation with Dr. Patel today. Has had a lot of nausea, vomiting, pain since. GENERAL: Uncomfortable, vomiting HEAD: Normocephalic, atraumatic. CHEST: No respiratory distress. HEART: Regular rate NEURO: ?Alert and oriented x3. Patient screened in triage and initial orders placed.? ?Additional care and disposition to be based upon?diagnostic testing and treatment. <Claudia Sánchez PA-C - Last Filed: 12/16/24 01:39> History of Present Illness HPI Narrative: Agree with HPI. She states that she had a pain pill after the surgery that usually causes nausea and when she got home began to have nausea. Patient has a history of cyclic vomiting syndrome <Ramon Browning DO - Last Filed: 12/16/24 03:46> Related Data Home medications: Home Medications ?Medication ?Instructions ?Recorded ?Confirmed ?Last Taken ?Type Lactobacillus 40-Bifidobact 1 cap PO DAILY 12/03/24 12/15/24 12/12/24 History 3-S.thermophilus 100 billion cell capsule (Probiotic) fluoxetine 20 mg capsule (Prozac) 20 mg PO DAILY 12/03/24 12/15/24 12/14/24 History magnesium 1 tablet PO DAILY 12/03/24 12/15/24 12/12/24 History <Claudia Sánchez PA-C - Last Filed: 12/16/24 01:39> Allergies/Adverse reactions: Allergies Allergy/AdvReac Type Severity Reaction Status Date / Time haloperidol (From Haldol) AdvReac Intermediate Anxiety Verified 12/15/24 18:29 metoclopramide AdvReac Intermediate Anxiety Verified 12/15/24 18:29 prochlorperazine (From AdvReac Intermediate Anxiety Verified 12/15/24 18:29 Compazine) <Claudia Sánchez PA-C - Last Filed: 12/16/24 01:39> Review of Systems Review of Systems: Gen.: Denies fevers or chills Eyes: Denies eye pain or visual change ENT: Denies congestion Respiratory: Denies shortness of breath or cough CV: Denies chest pain or palpitations GI: As per HPI denies burning, urgency, frequency or hematuria Musculoskeletal: Denies back pain or muscle pain Neuro: Denies numbness, tingling, weakness or focal weakness Skin: Denies rash Except as documented, all other systems reviewed and negative <Ramon Browning DO - Last Filed: 12/16/24 03:46> REPLACED BY [facility] Past Medical History Medical History: Medical History (normal spontaneous vaginal delivery) 2020-severe hyperemesis, preeclampsia 2023 Anxiety Asthma childhood only <Claudia Sánchez PA-C - Last Filed: 12/16/24 01:39> Surgical History Surgical History: Surgical History History of bilateral tubal ligation In 2023 bilateral salpingectomies History of tympanostomy <Claudia Sánchez PA-C - Last Filed: 12/16/24 01:39> Family History Family History: Family History Father Alive and well Colon cancer Mother Alive and well Sibling Brain tumor <Claudia Sánchez PA-C - Last Filed: 12/16/24 01:39> Social History Social History: Social History Smoking packs per day: 0.5 Smoking cigarettes per day: 10.0 Years smoked: 10 Smoking pack-years: 5.00 Tobacco type: e-cigarettes/vaping Second hand tobacco smoke exposure: Yes Smoking end date: 01/06/20 Additional smoking assessment comments: HAS BEEN SMOKING PUFF BAR SINCE NOVEMBER 2019 Alcohol intake: current Alcohol use details: 1/MONTH Substance use: current Substance use type: marijuana Other substance usage details: daily-smoke or vape Do You Feel Safe in your Home?: No Lack of Transportation: No Lack of Food: Never True Current Housing: I Have Housing Concerned About Future Housing: No Difficulty Paying Gas/Electric Bills: No Difficulty Paying for Meds: No Currently Unemployed: No Education: High School Diploma/GED Difficulty w/ Childcare or Family Care: No Living arrangements: with family Gender identity (if verbalized by the patient): Female Spiritual care concerns: No <Claudia Sánchez PA-C - Last Filed: 12/16/24 01:39> Exam Narrative: APPEARANCE: Moderate distress distress, nontoxic, actively vomiting EYES: EOMI HEENT: Normocephalic, atraumatic, OMM RESPIRATORY: No respiratory distress Clear to auscultation bilaterally with no rhonchi wheezing or rales. CARDIOVASCULAR: Regular rate and rhythm without murmurs rubs or gallops. ABDOMINAL: Soft, mild left lower quadrant tenderness to palpation, nondistended, no rebound or guarding MUSCULOSKELETAl: Moves all extremities. No clubbing, cyanosis or edema. NEURO: Awake and alert. Following commands, speech normal, no focal deficits SKIN:: Warm, dry. No rashes lesions or abrasions PSYCHIATRIC: Normal affect/mood, <Ramon Browning DO - Last Filed: 12/16/24 03:46> Course Vital Signs Vital signs: Vital Signs Temperature 97.7 F 12/15/24 18:25 Pulse Rate 100 12/15/24 18:25 Respiratory Rate 17 12/15/24 18:25 Blood Pressure 131/95 H 12/15/24 18:25 Pulse Oximetry 100 12/15/24 18:25 Oxygen Delivery Room Air 12/15/24 18:25 Temperature 97.9 F 12/15/24 23:42 Pulse Rate 92 12/15/24 23:42 Respiratory Rate 18 12/15/24 23:42 Blood Pressure 128/91 H 12/15/24 23:42 Pulse Oximetry 99 12/15/24 23:42 Oxygen Delivery Room Air 12/15/24 18:25 <Claudia Sánchez PA-C - Last Filed: 12/16/24 01:39> Vital Signs Temperature 97.7 F 12/15/24 18:25 Pulse Rate 100 12/15/24 18:25 Respiratory Rate 17 12/15/24 18:25 Blood Pressure 131/95 H 12/15/24 18:25 Pulse Oximetry 100 12/15/24 18:25 Oxygen Delivery Room Air 12/15/24 18:25 Temperature 97.9 F 12/15/24 23:42 Pulse Rate 92 12/15/24 23:42 Respiratory Rate 18 12/15/24 23:42 Blood Pressure 128/91 H 12/15/24 23:42 Pulse Oximetry 99 12/15/24 23:42 Oxygen Delivery Room Air 12/15/24 18:25 <Ramon Browning DO - Last Filed: 12/16/24 03:46> MDM - Nausea/Vomiting/Diarrhea MDM Narrative Medical decision making narrative: 29-year-old female Presenting for nausea and vomiting. On initial evaluation patient was actively vomiting, hemodynamically stable Differentials include but are not limited to: Gastritis, gastroenteritis, postop nausea, cyclic vomiting syndrome, electrolyte abnormality Notable exam findings: Abdomen soft and nontender. Notable lab findings: Leukocytosis at 19.4 likely consistent with stress response to the vomiting.. Mildly decreased bicarb likely due to mild dehydration. Patient was initially given Zofran in triage. She was subsequently given droperidol and scopolamine patch. She did have moderate improvement of her symptoms and she was able to tolerate water without vomitus. Patient was deemed appropriate for discharge at this time. Patient was advised follow-up with their PCP in the next week for re-evaluation. Patient was agreeable to this plan. Given strict return precautions. <Ramon Browning DO - Last Filed: 12/16/24 03:46> Medical Records Attestation: I reviewed the patient's medical records. <Ramon Browning DO - Last Filed: 12/16/24 03:46> Lab Data Attestation: I reviewed the patient's lab results. <Ramon Browning DO - Last Filed: 12/16/24 03:46> Result diagrams: 12/15/24 21:45 12/15/24 21:45 <Claudia Sánchez PA-C - Last Filed: 12/16/24 01:39> Labs: Lab Results 12/15/24 12/15/24 Range/Units 21:34 21:45 WBC 19.4 H (4.5-10.0) K/mm3 RBC 4.51 (4.2-5.4) M/mm3 Hgb 13.8 (12.0-15.0) g/dL Hct 41.7 (37.0-47.0) % MCV 92.5 (80-100) fl MCH 30.6 (26-34) pg MCHC 33.1 (32-36) g/dl RDW 12.3 (11.5-14.5) % Plt Count 254 (150-375) k/mm3 MPV 12.2 H (7.4-10.4) fl Immature Gran % (Auto) Not Reportable Neut % (Auto) Not Reportable Lymph % (Auto) Not Reportable [place]re % (Auto) Not Reportable Eos % (Auto) Not Reportable Baso % (Auto) Not Reportable Lymph # (Auto) Not Reportable [place] # (Auto) Not Reportable Eos # (Auto) Not Reportable Baso # (Auto) Not Reportable Abs Immat Gran (auto) Not Reportable Absolute Neuts (auto) Not Reportable Absolute Nucleated RBC Not Reportable Total Counted 100 Neutrophils % (Manual) 87 H (46-73) % Band Neutrophils % 2 (0-6) % Lymphocytes % (Manual) 8.0 L (18-44) % Monocytes % (Manual) 3 (3-9) % Nucleated RBC % Not Reportable Abs Neuts (Manual) 17.26 H (1.3-6.7) K/mm3 Abs Lymphs (Manual) 1.55 (1.1-4.5) K/mm3 Abs Monocytes (Manual) 0.58 (0.1-0.90) K/mm3 Platelet Estimate Adequate (Adequate) Schistocytes None seen Sodium 138 (137-145) mmol/L Potassium 3.7 (3.4-5.0) mmol/L Chloride 105 (98-107) mmol/L Carbon Dioxide 20 L (22-30) mmol/L Anion Gap 13 H (4-12) mmol/L BUN 14 D (7-17) mg/dL Creatinine 0.61 L (0.7-1.0) mg/dL Estim Creat Clear Calc Not Reportable Estimated GFR > 60 (59 - ) Glucose 170 H (65-110) mg/dL Calcium 9.5 (8.4-10.2) mg/dL Total Bilirubin 0.6 (0.2-1.3) mg/dL AST 24 (14-36) U/L ALT 22 (6-35) U/L Alkaline Phosphatase 65 (38-126) U/L Total Protein 8.3 H (6.3-8.2) g/dL Albumin 5.1 (3.5-5.1) g/dL Lipase 39 (23-300) U/L Urine Color Yellow (Yellow) Urine Appearance Cloudy H (Clear) Urine pH 5.5 (5.0-9.0) Ur Specific Winkelman 1.031 (1.001-1.035) Urine Protein 1+ H (Negative) mg/dL Urine Glucose (UA) Trace H (Negative) mg/dL Urine Ketones 3+ H (Negative) mg/dL Ur Blood (Man) 3+ H (Negative) Urine Nitrate Negative (Negative) Urine Bilirubin Negative (Negative) Urine Urobilinogen 1.0 (<2.0) mg/dL Leukocyte Esterase Rfl Negative (Negative) PERRY/UL Urine RBC 6-10 H (0-2) /hpf Urine WBC 0-5 (0-3) /hpf Ur Squamous Epith Cells Occasional (Few) /hpf Urine Bacteria None seen /hpf Urine Casts 0-2 POC Urine HCG, Qual Negative (Negative) <Claudia Sánchez PA-C - Last Filed: 12/16/24 01:39> Lab Results 12/15/24 12/15/24 Range/Units 21:34 21:45 WBC 19.4 H (4.5-10.0) K/mm3 RBC 4.51 (4.2-5.4) M/mm3 Hgb 13.8 (12.0-15.0) g/dL Hct 41.7 (37.0-47.0) % MCV 92.5 (80-100) fl MCH 30.6 (26-34) pg MCHC 33.1 (32-36) g/dl RDW 12.3 (11.5-14.5) % Plt Count 254 (150-375) k/mm3 MPV 12.2 H (7.4-10.4) fl Immature Gran % (Auto) Not Reportable Neut % (Auto) Not Reportable Lymph % (Auto) Not Reportable [place]ou[place] % (Auto) Not Reportable Eos % (Auto) Not Reportable Baso % (Auto) Not Reportable Lymph # (Auto) Not Reportable [place] # (Auto) Not Reportable Eos # (Auto) Not Reportable Baso # (Auto) Not Reportable Abs Immat Gran (auto) Not Reportable Absolute Neuts (auto) Not Reportable Absolute Nucleated RBC Not Reportable Total Counted 100 Neutrophils % (Manual) 87 H (46-73) % Band Neutrophils % 2 (0-6) % Lymphocytes % (Manual) 8.0 L (18-44) % Monocytes % (Manual) 3 (3-9) % Nucleated RBC % Not Reportable Abs Neuts (Manual) 17.26 H (1.3-6.7) K/mm3 Abs Lymphs (Manual) 1.55 (1.1-4.5) K/mm3 Abs Monocytes (Manual) 0.58 (0.1-0.90) K/mm3 Platelet Estimate Adequate (Adequate) Schistocytes None seen Sodium 138 (137-145) mmol/L Potassium 3.7 (3.4-5.0) mmol/L Chloride 105 (98-107) mmol/L Carbon Dioxide 20 L (22-30) mmol/L Anion Gap 13 H (4-12) mmol/L BUN 14 D (7-17) mg/dL Creatinine 0.61 L (0.7-1.0) mg/dL Estim Creat Clear Calc Not Reportable Estimated GFR > 60 (59 - ) Glucose 170 H (65-110) mg/dL Calcium 9.5 (8.4-10.2) mg/dL Total Bilirubin 0.6 (0.2-1.3) mg/dL AST 24 (14-36) U/L ALT 22 (6-35) U/L Alkaline Phosphatase 65 (38-126) U/L Total Protein 8.3 H (6.3-8.2) g/dL Albumin 5.1 (3.5-5.1) g/dL Lipase 39 (23-300) U/L Urine Color Yellow (Yellow) Urine Appearance Cloudy H (Clear) Urine pH 5.5 (5.0-9.0) Ur Specific Wink[place] 1.031 (1.001-1.035) Urine Protein 1+ H (Negative) mg/dL Urine Glucose (UA) Trace H (Negative) mg/dL Urine Ketones 3+ H (Negative) mg/dL Ur Blood (Man) 3+ H (Negative) Urine Nitrate Negative (Negative) Urine Bilirubin Negative (Negative) Urine Urobilinogen 1.0 (<2.0) mg/dL Leukocyte Esterase Rfl Negative (Negative) PERRY/UL Urine RBC 6-10 H (0-2) /hpf Urine WBC 0-5 (0-3) /hpf Ur Squamous Epith Cells Occasional (Few) /hpf Urine Bacteria None seen /hpf Urine Casts 0-2 POC Urine HCG, Qual Negative (Negative) <Ramon Browning DO - Last Filed: 12/16/24 03:46> Critical Care Time Critical Care Time Critical Care Time: No <Claudia Sánchez PA-C - Last Filed: 12/16/24 01:39> Discharge Plan Discharge Clinical Impression: Post-operative nausea and vomiting <Claudia Sánchez PA-C - Last Filed: 12/16/24 01:39> Patient Disposition: Home <NOAH Nieto Last Filed: 12/16/24 01:39> Condition: Stable <Claudia Sánchez PA-C - Last Filed: 12/16/24 01:39> Instructions: Antibiotic Form, Acute Nausea and Vomiting (ED) <NOAH Nieto Last Filed: 12/16/24 01:39> Additional Instructions: Keep the scopolamine patch on for 3 days and remove it. Wash hands if you touch it. Follow-up with your PCP in the next week for re-evaluation. Return to the ED for any new or worsening symptoms. <NOAH Nieto Last Filed: 12/16/24 01:39> Patient Language: Norwegian <NOAH Nieto Last Filed: 12/16/24 01:39> Prescriptions: No Action fluoxetine [Prozac] 20 mg capsule 20 mg PO DAILY magnesium Tablet 1 tablet PO DAILY Patient Comments: with K+ Probiotic 100 billion cell capsule 1 cap PO DAILY <NOAH Nieto Last Filed: 12/16/24 01:39> Follow-up/Referrals: Maurisio,DULCE MARIA Truong [Primary Care Provider, Unknown] <Claudia Sánchez PA-C - Last Filed: 12/16/24 01:39>
[2024-12-15] MEDS: SCOPOLAMINE 1 MG PATCH 1 PATCH TRANSDERM (21:46)
[2024-12-15] MEDS: ONDANSETRON INJ 4 MG/2 ML VIAL IV PUSH ×2 (21:46→23:33)
[2024-12-15] MEDS: SODIUM CHLORIDE 0.9% IV 1,000 ML 999 ML IV CONT (21:52)
[2024-12-15 21:54] LABS: Hematocrit 41.7 % (37.0-47.0); Hemoglobin 13.8 g/dL (12.0-15.0); Mean Corpuscular HGB Conc 33.1 g/dl (32-36); Mean Corpuscular Hemoglobin 30.6 pg (26-34); Mean Corpuscular Volume 92.5 fl (80-100); Platelet Count Result 254 k/mm3 (150-375); Red Blood Count 4.51 M/mm3 (4.2-5.4); White Blood Count 19.4 K/mm3 (4.5-10.0)
[2024-12-15 22:04] LABS: Alanine Aminotransferase 22 U/L (6-35); Albumin Level 5.1 g/dL (3.5-5.1); Alkaline Phosphatase 65 U/L (38-126); Anion Gap 13 mmol/L (4-12); Aspartate Amino Transferase 24 U/L (14-36); Bilirubin,Total 0.6 mg/dL (0.2-1.3); Blood Urea Nitrogen 14 mg/dL (7-17); Calcium 9.5 mg/dL (8.4-10.2); Carbon Dioxide 20 mmol/L (22-30); Chloride 105 mmol/L (98-107); Estimated Glomerular Filt Rate > 60; Glucose 170 mg/dL (65-110); Lipase 39 U/L (23-300); Potassium 3.7 mmol/L (3.4-5.0); Sodium 138 mmol/L (137-145); Total Protein 8.3 g/dL (6.3-8.2)
[2024-12-15 22:06] LABS: Add Urine Microscopic? YES; Appearance Urine Cloudy (Clear); Glucose Urine UA Trace mg/dL (Negative); Leukocyte Esterase Ur Negative LEU/UL (Negative); Nitrate Urine Negative (Negative); Non Pathogenic Casts 0-2; Specific Grav Ur 1.031 (1.001-1.035)
[2024-12-15 22:16] LABS: BEDSIDEPREGUCG Negative (Negative)
[2024-12-15 22:17] LABS: Band Neutrophils Percent 2 % (0-6); Lymphocytes Absolute Manual 1.55 K/mm3 (1.1-4.5); Lymphocytes Percent Manual 8.0 % (18-44); Monocytes Absolute Manual 0.58 K/mm3 (0.1-0.90); Monocytes Percent Manual 3 % (3-9); Neutrophils Absolute Manual 17.26 K/mm3 (1.3-6.7); Neutrophils Percent Manual 87 % (46-73); Schistocytes None Seen; Total Cells Counted 100
--- OUTSIDE RECORDS SUMMARY | 2024-12-15 22:18 | XMS_ITS | Encounter Summary ---
Author Organization [facility] Healthcare Address [address] [place] [address] Care Team Providers Care [employer] Name Role Phone Dionne Forde Primary Care Provider [phone] Encounter Details Date Type Department Care Team (Late st Contact Info) Description 12/13/2024 Results Follow-Up [facility] Medical Group Family Medicine [address] [place] [address] Dionne Forde PA [address] [place] [address] TSH, T4, free, T3, free, [...] on file Legal Sex Female 7:26 AM [employer] Gender Identity Not on file Sexual Orientation Not on file documented as of this encounter Plan of Treatment Upcoming Encounters Date Type Department Care Team (Late st Contact Info) Description 03/11/2025 12:00 PM [employer] Hospital Encounter [address] [address] Guicho Thomas, DO [address] [place] [address] 03/11/2025 12:00 PM [employer] - 03/11/2025 12:30 PM [employer] Surgery [address] [address] Guicho Thomas, [address] [place] [address] COLONOSCOPY Scheduled Procedures Name Priority Associated Diagnoses Date/Ti me COLONOSCOPY Chronic constipation Family history of colon cancer in father 03/11/2025 12:00 PM [employer] documented as of this encounter Visit Diagnoses Not on filedocumented in this encounter Care Teams [employer] Relationship Specialty Start Date End Date Dionne Forde PA [address] [place] [address] PCP - General Family Medicine 11/24/24 documented as of this encounter
--- OUTSIDE RECORDS SUMMARY | 2024-12-15 22:18 | XMS_ITS | Clinical Summary ---
Author Organization [facility] Address [address] [place] [address] Care Team Providers Care Seismograph Operator Helper Name Role Phone Jordyn Michel Primary Care Provider [phone] Allergies Active Allergy Reactions Criticality Noted Date [...] Type Department Care Team Description 10/21/2024 Telephone [facility] Family & Internal Medicine [address] [phone] Jordyn Michel FNP [facility] 10/19/2024 2:14 PM CDT - 10/19/2024 4:33 PM CDT Emergency [facility] [place] [address] Kevin Conklin MD Abdominal Pain Discharge Disposition: Home or Self Care (Routine Discharge) 10/19/2024 Travel 10/15/2024 6:51 AM CDT - 10/17/2024 11:00 AM CDT Hospital Encounter [facility] [place] [address] Coy Doll MD Suresh, Rick Mayers MD [...] from your doctor or pharmacy? Never 10/15/2024 [facility] Utilities Answer Date Recorded In the past 12 months has [facility] [employer], [employer] or water [employer] threatened to shut off services in your [...] week 10/15/2024 How often do you attend [facility] or taoist services? Never 10/15/2024 Do you belong to any clubs o r organizations such as jewish groups, unions, fraternal or athletic groups, or [...] Recorded Patient Health Questionnaire-2 Score 0 10/15/2024 [facility] - Occupational Stress [...] any time in the past 12 m [facility], were you homeless or living in a snf (including now)? No 10/15/2024 Comments No Sex [...] Meningococcal Vaccine Completed 12/01/2015, 009 PHQ-2 (Physician [place]) Completed 10/15/2024 Meningococcal B Vaccine Aged Out [...] is included. 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: [id number] : 1995 Requested By: NICOLE QUEVEDO Order Number: [id number] Reading MD: Gayle Cummins Measurements Intervals Maybell Rate: 82 P: 73 MD: 151 QRS: -76 QRSD: 86 T: 34 [...] Procedure Note Gayle Cummins MD - 10/19/[address] Test Date: 2024-10-19 Pat Name: GIANNA ALFRED Department: 41 Room: EXAM25 Gender: Female Senior Agricultural Assistant: [id number] : 1995 Requested By: NICOLE QUEVEDO Order Number: [id number] Reading MD: Gayle Cummins Measurements Intervals [place]bell Rate: 82 P: 73 MD: 151 QRS: -76 QRSD: 86 T: 34 [...] present Nicole العراقي ECG ORDERABLES Final Result [facility] * XR CHEST PORTABLE (10/19/2024 2:37 PM CDT) Anatomical Region Laterality Modality Chest Radiographic Geovanna ging 10/19/2024 2:41 PM CDT Impressions 10/19/2024 2:48 PM CDT IMPRESSION: No acute pulmonary findings. Referred By: Interpreted By: Sarkis Mendez MD, 10/19/2024 2:41 PM Narrative 10/19/2024 2:48 PM CDT [place] [address] Examination: XR CHEST PORTABLE Exam time: 10/19/2024 2:28 PM Indication: Dizziness Comparison: None Findings: Upright AP view of the chest was obtained. The heart size is normal. No vascular congestion. No airspace consolidation, pleural effusion, or pneumothorax. Procedure Note Sarkis Mendez MD - 10/19/2024 [place] [address] Examination: XR CHEST PORTABLE Exam time: 10/19/2024 [...] * (ABNORMAL) URINALYSIS (10/19/2024 2:17 PM CDT) [facility] SPECIMEN TYPE URINE CLEAN CATCH 10/19/2024 2:33 PM CDT [facility] COLOR (U) YELLOW 10/19/2024 2:52 PM CDT [facility] TRANSPARENCY TURBID 10/19/2024 2:52 PM CDT [facility] SPECIFIC GRAVITY (U) 1.025 1.001 - 1.030 10/19/2024 2:52 PM CDT [facility] U PH 6.0 5.0 - 9.0 10/19/2024 2:52 PM CDT [facility] LEUKOCYTES (U) 75(A) NEGATIVE 10/19/2024 2:52 PM CDT [facility] NITRITES NEGATIVE NEGATIVE 10/19/2024 2:52 PM CDT [facility] PROTEIN RANDOM (U) 50(H) <30 MG/DL 10/19/2024 2:52 PM CDT [facility] GLUCOSE (U) NORMAL NORMAL MG/DL 10/19/2024 2:52 PM CDT [facility] KETONES MG/DL (U) NEGATIVE NEGATIVE MG/DL 10/19/2024 2:52 PM CDT [facility] UROBILINOGEN 2.0(A) NORMAL MG/DL 10/19/2024 2:52 PM CDT [facility] BILIRUBIN (U) NEGATIVE NEGATIVE MG/DL 10/19/2024 2:52 PM CDT [facility] BLOOD (U) 3+(A) NEGATIVE 10/19/2024 2:52 PM CDT [facility] MUCUS MANY /LPF 10/19/2024 2:52 PM CDT [facility] WBC/HPF 11(H) <6 /HPF 10/19/2024 2:52 PM CDT [facility] RBC/HPF 18(H) <6 /HPF 10/19/2024 2:52 PM CDT [facility] CA OXALATE CRYSTALS RARE /HPF 10/19/2024 2:52 PM CDT [facility] SQUAMOUS EPITHELIALS MANY /HPF 10/19/2024 2:52 PM CDT [facility] URINE SPECIMEN OBTAINED BY CLEAN CATCH PROCEDURE / Unknown 10/19/2024 2:17 PM CDT us Nicole العراقي URINE ORDERABLES Final Resul t [facility] [address] [place] [address], [place] [phone] * (ABNORMAL) COMPREHENSIVE METABOLIC PANEL (10/19/2024 2:17 PM CDT) Only the most recent of2 resultswithin the time period is included. GLUCOSE 115(H) 70 - 99 MG/DL 10/19/2024 3:18 PM CDT [facility] BUN 9 7 - 18 MG/DL 10/19/2024 3:18 PM CDT [facility] CREATININE S/P/B 0.90 0.55 - 1.02 MG/DL 10/19/2024 3:18 PM CDT [facility] SODIUM S/P/B 133(L) 136 - 145 MMOL/L 10/19/2024 3:18 PM CDT [facility] POTASSIUM S/P/B 3.8 3.5 - 5.1 MMOL/L 10/19/2024 3:18 PM CDT [facility] CHLORIDE S/P/B 101 97 - 115 MMOL/L 10/19/2024 3:18 PM CDT [facility] CO2 25.7 21 - 32 MMOL/L 10/19/2024 3:18 PM CDT [facility] CALCIUM S/P/B 9.9 8.5 - 10.1 MG/DL 10/19/2024 3:18 PM CDT [facility] BILIRUBIN TOTAL S/P/B 0.9 0.2 - 1.2 MG/DL 10/19/2024 3:18 PM CDT [facility] Comment: THIS ASSAY IS NOT RECOMMENDED FOR PATIENTS UNDERGOING TREATMENT WITH ELTROMBOPAG DUE TO THE POTENTIAL FOR FALSELY ELEVATED RESULTS. TOTAL PROTEIN S/P/B 7.9 6.4 - 8.2 G/DL 10/19/2024 3:18 PM CDT [facility] ALBUMIN S/P/B 4.6 3.4 - 5.0 G/DL 10/19/2024 3:18 PM CDT [facility] AST 28 15 - 37 U/L 10/19/2024 3:18 PM CDT [facility] ALT 175(H) 14 - 55 U/L 10/19/2024 3:18 PM CDT [facility] ALKALINE PHOSPHATASE S/P/B 78 50 - 136 U/L 10/19/2024 3:18 PM CDT [facility] ANION GAP 6.3 2 - 10 MMOL/L 10/19/2024 3:18 PM CDT [facility] BUN CREATININE RATIO 9.9 6 - 26 10/19/2024 3:18 PM CDT [facility] A/G RATIO 1.4 1.0 - 2.0 RATIO 10/19/2024 3:18 PM CDT [facility] GFR ESTIMATE 90(L) >90 ML/MIN/1.7 3 M2 10/19/2024 3:18 PM CDT [facility] Comment: NOTE: eGFR is not calculated for patients <18 years of age or gender unknown. This is an estimated GFR calculation using the new CKD EPI creatinine equation without race and so does not require a correction factor for race. This estimated GFR should not be used for calculating drug doses. 10/19/2024 2:17 PM CDT Nicole العراقي LABORATORY Final Result [facility] [address] [place] [address], * (ABNORMAL) CBC W/DIFF AUTOMATED (10/19/2024 2:17 PM CDT) Only the most recent of3 resultswithin the time period is included. WBC 10.43 4.5 - 11.0 x10'3/uL 10/19/2024 2:40 PM CDT [facility] RBC 4.97 4.20 - 5.40 x10'6/uL 10/19/2024 2:40 PM CDT [facility] HGB 15.1 12.0 - 16.0 G/DL 10/19/2024 2:40 PM CDT [facility] HCT 43.3 38.0 - 48.0 % 10/19/2024 2:40 PM CDT [facility] MCV 87.1 81.0 - 99.0 FL 10/19/2024 2:40 PM CDT [facility] MCH 30.4 27.0 - 31.0 PG 10/19/2024 2:40 PM CDT [facility] MCHC 34.9 32.0 - 36.0 G/DL 10/19/2024 2:40 PM CDT [facility] RDW 11.9 11.5 - 14.5 % 10/19/2024 2:40 PM CDT [facility] PLT 287 130 - 400 x10'3/uL 10/19/2024 2:40 PM CDT [facility] MPV 12.2 9.3 - 12.2 FL 10/19/2024 2:40 PM CDT [facility] DIFFERENTIAL TYPE AUTOMATED DIFFERENTIAL 10/19/2024 2:40 PM CDT [facility] NEUTROPHILS % 69.6 % 10/19/2024 2:40 PM CDT [facility] LYMPHOCYTES % 19.8 % 10/19/2024 2:40 PM CDT [facility] MONOCYTES % 8.5 % 10/19/2024 2:40 PM CDT [facility] EOSINOPHILS 1.3 % 10/19/2024 2:40 PM CDT [facility] BASOPHILS 0.5 % 10/19/2024 2:40 PM CDT [facility] IMMATURE GRANS % 0.3 % 10/20/19 2:40 PM CDT [facility] ABS. NEUTROPHILS 7.25 1.80 - 7.70 x10'3/uL 10/19/2024 2:40 PM CDT [facility] ABS. LYMPHOCYTES 2.07 1.00 - 4.80 x10'3/uL 10/19/2024 2:40 PM CDT [facility] ABS. MONOCYTES 0.89(H) 0.24 - 0.86 x10'3/uL 10/19/2024 2:40 PM CDT [facility] ABS. EOSINOPHILS 0.14 0.04 - 0.36 x10'3/uL 10/19/2024 2:40 PM CDT [facility] ABS. BASOPHILS 0.05 0.01 - 0.08 x10'3/uL 10/19/2024 2:40 PM CDT [facility] ABS. IMMATURE GRANULOCYTES 0.03 0.00 - 0.49 x10'3/uL 10/19/2024 2:40 PM CDT [facility] 10/19/2024 2:17 PM CDT Nicole العراقي LABORATORY Final Result [facility] [address] [place] [address], [place] [phone] * TROPONIN, QUANT (10/19/2024 2:17 PM CDT) TROPONIN I HIGH SENSITIVITY <3 <54 ng/L 10/19/2024 3:18 PM CDT [facility] Comment: HIGH DOSES OF BIOTIN, TROPONIN-SPECIFIC AUTOANTIBODIES, AND ANTIBODY THERAPY CONTAINING HAMA MAY INTERFERE WITH THIS TEST RESULT. CORRELATION TO CLINICAL HISTORY AND PRESENTATION RECOMMENDED. 10/19/2024 2:17 PM CDT Nicole العراقي LABORATORY Final Result [facility] [address] [place] [address], [place] [phone] * LIPASE (10/19/2024 2:17 PM CDT) LIPASE 20 13 - 75 UNITS/L 10/19/2024 3:18 PM CDT [facility] 10/19/2024 2:17 PM CDT Nicole العراقي LABORATORY Final Result [facility] [address] [place] [address], * (ABNORMAL) BASIC METABOLIC PANEL (10/17/2024 4:23 AM CDT) Only the most recent of3 resultswithin the time period is included. GLUCOSE 124(H) 70 - 99 MG/DL 10/17/2024 5:32 AM CDT [facility] BUN 5(L) 7 - 18 MG/DL 10/17/2024 5:32 AM CDT [facility] CREATININE S/P/B 0.57 0.55 - 1.02 MG/DL 10/17/2024 5:32 AM CDT [facility] SODIUM S/P/B 135(L) 136 - 145 MMOL/L 10/17/2024 5:32 AM CDT [facility] POTASSIUM S/P/B 3.4(L) 3.5 - 5.1 MMOL/L 10/17/2024 5:32 AM CDT [facility] CHLORIDE S/P/B 103 97 - 115 MMOL/L 10/17/2024 5:32 AM CDT [facility] CO2 27.2 21 - 32 MMOL/L 10/17/2024 5:32 AM CDT [facility] CALCIUM S/P/B 9.4 8.5 - 10.1 MG/DL 10/17/2024 5:32 AM CDT [facility] ANION GAP 4.8 2 - 10 MMOL/L 10/17/2024 5:32 AM CDT [facility] BUN CREATININE RATIO 8.8 6 - 26 10/17/2024 5:32 AM CDT [facility] GFR ESTIMATE >90 >90 ML/MIN/1.7 3 M2 10/17/2024 5:32 AM CDT [facility] Comment: NOTE: eGFR is not [...] Rick Cerna MD LABORATORY Final R esult [facility] [address] [place] [id number], * (ABNORMAL) CBC, AUTO, NO DIFF (10/17/2024 4:23 AM CDT) WBC 9.21 4.5 - 11.0 x10'3/uL 10/17/2024 6:02 AM CDT [facility] RBC 4.70 4.20 - 5.40 x10'6/uL 10/17/2024 6:02 AM CDT [facility] HGB 14.6 12.0 - 16.0 G/DL 10/17/2024 6:02 AM CDT [facility] HCT 41.0 38.0 - 48.0 % 10/17/2024 6:02 AM CDT [facility] MCV 87.2 81.0 - 99.0 FL 10/17/2024 6:02 AM CDT [facility] MCH 31.1(H) 27.0 - 31.0 PG 10/17/2024 6:02 AM CDT [facility] MCHC 35.6 32.0 - 36.0 G/DL 10/17/2024 6:02 AM CDT [facility] RDW 11.7 11.5 - 14.5 % 10/17/2024 6:02 AM CDT [facility] PLT 276 130 - 400 x10'3/uL 10/17/2024 6:02 AM CDT [facility] MPV 12.6(H) 9.3 - 12.2 FL 10/17/2024 6:02 AM CDT [facility] 10/17/2024 4:23 AM CDT us Rick Cerna MD LABORATORY Final R esult [facility] [address] [place] [address], [place] [phone] * PHOSPHORUS, INORGANIC PHOSPHATE (10/17/2024 4:23 AM CDT) Only the most recent of4 resultswithin the time period is included. PHOSPHORUS 2.5 2.5 - 4.9 MG/DL 10/17/2024 5:32 AM CDT [facility] 10/17/2024 4:23 AM CDT Rick Cerna MD LABORATORY Final R esult [facility] [address] [place] [address], * PREG TEST SERUM (HCG QUALITATIVE) (10/16/2024 11:14 AM CDT) Pathologist [facility] PREG SCREEN-SERUM NEGATIVE 10/16/2024 11:37 AM CDT [facility] 10/16/2024 11:1 4 AM CDT Rick Cerna MD LABORATORY Final R esult [facility] [address] [place] [address], * MAGNESIUM (10/16/2024 4:40 AM CDT) Only the most recent of2 resultswithin the time period is included. [facility] MAGNESIUM 2.2 1.8 - 2.4 MG/DL 10/16/2024 5:50 AM CDT [facility] 10/16/2024 4:40 AM CDT Mere Mckeon NP LABORATORY Final Result [facility] [address] [place] [address], * (ABNORMAL) DRUG SCREEN RAPID (10/15/2024 8:57 AM CDT) Pathologist [facility] AMPHETAMINE (U) NEGATIVE NEGATIVE 12:39 PM CDT [facility] BARBITURATES SCREEN (U) NEGATIVE NEGATIVE 10/15/2024 12:39 PM CDT [facility] BENZODIAZEPINES SCREEN (U) NEGATIVE NEGATIVE 10/15/2024 12:39 PM CDT [facility] CANNABINOIDS SCREEN (U) POSITIVE(A) NEGATIVE 10/15/2024 12:39 PM CDT [facility] COCAINE METABOLITES (U) NEGATIVE NEGATIVE 10/15/2024 12:39 PM CDT [facility] METHADONE (U) NEGATIVE NEGATIVE 10/15/2024 12:39 PM CDT [facility] OPIATE SCREEN (U) NEGATIVE NEGATIVE 025 12:39 PM CDT [facility] PHENCYCLIDINE PCP (U) NEGATIVE NEGATIVE 10/15/2024 12:39 PM CDT [facility] Comment: NOTE: RESULTS OF THIS DRUG SCREEN SHOULD BE USED FOR MEDICAL PURPOSES ONLY AND NOT FOR LEGAL OR EMPLOYMENT PURPOSES. POSITIVE RESULTS ARE NOT CONFIRMED. MEDICATIONS CONTAINING EPHEDRINE MAY CAUSE FALSE POSITIVE AMPHETAMINE CALL [phone], LAB, TO REQUEST CONFIRMATION TESTING. IF CREATININE IS <40 mg/dL. RECOLLECTION IS SUGGESTED. AMPHETAMINE- 500 NG/ML BARBITURATE- 200 NG/ML BENZODIAZEPINES- 200 NG/ML THC- 50 NG/ML COCAINE- 150 NG/ML METHADONE- 300 NG/ML OPIATE- 300 MG/ML PCP- 25 NG/ML CREATININE (U) 80.4 28 - 217 MG/DL 10/15/2024 12:39 PM CDT [facility] URINE SPECIMEN / Unknown 10/15/2024 8:57 AM CDT Mere Mckeon NP URINE ORDERABLES Final Result [facility] [address] [place] [address], [place] [phone] * (ABNORMAL) Urinalysis, Auto, Complete (10/15/2024 8:57 AM CDT) SPECIMEN TYPE URINE CLEAN CATCH 10/15/2024 8:52 AM CDT [facility] COLOR (U) COLORLESS 10/15/2024 9:09 AM [facility] TRANSPARENCY CLEAR 10/15/2024 9:09 AM [facility] SPECIFIC GRAVITY (U) 1.048(H) 1.001 - 1.030 10/15/2024 9:09 AM [facility] U PH 7.0 5.0 - 9.0 10/15/2024 9:09 AM [facility] LEUKOCYTES (U) NEGATIVE NEGATIVE 10/15/2024 9:09 AM [facility] NITRITES NEGATIVE NEGATIVE 10/15/2024 9:09 AM [facility] PROTEIN RANDOM (U) NEGATIVE <30 MG/DL 10/15/2024 9:09 AM [facility] GLUCOSE (U) NORMAL NORMAL MG/DL 10/15/2024 9:09 AM [facility] KETONES MG/DL (U) 80(A) NEGATIVE MG/DL 10/15/2024 9:09 AM [facility] UROBILINOGEN NORMAL NORMAL MG/DL 10/15/2024 9:09 AM [facility] BILIRUBIN (U) NEGATIVE NEGATIVE MG/DL 10/15/2024 9:09 AM [facility] BLOOD (U) 3+(A) NEGATIVE 10/15/2024 9:09 AM [facility] MUCUS RARE /LPF 10/15/2024 9:09 AM [facility] WBC/HPF 1 <6 /HPF 10/15/2024 9:09 AM [facility] RBC/HPF 9(H) <6 /HPF 10/15/2024 9:09 AM [facility] SQUAMOUS EPITHELIALS RARE /HPF 10/15/2024 9:09 AM [facility] URINE SPECIMEN OBTAINED BY CLEAN CATCH PROCEDURE / Unknown 10/15/2024 8:57 AM CDT Coy Doll MD URINE ORDERABLES Alina mikal Result [facility] [address] [place] [address], * CT ABD+PEL W CON (10/15/2024 8:40 AM CDT) Anatomical Region Laterality Modality Abdomen Computed Tomogra phy 10/15/2024 8:49 AM CDT Impressions 10/15/2024 8:57 AM CDT =====IMPRESSION:===== No acute abnormality is demonstrated. Ordered By: COY DOLL Interpreted By: Coy Vazquez MD, 10/15/2024 8:49 AM Narrative 10/15/2024 8:57 AM CDT [facility] [address] [place], [place] [address] EXAMINATION: CT Abdomen and Pelvis with contrast [...] Procedure Note Coy Vazquez MD - 10/15/2024 [facility] [address] [place], [place] [address] EXAMINATION: CT Abdomen and Pelvis with contrast [...] - 0.49 NG/ML 10/15/2024 2:37 PM CDT [facility] 10/15/2024 7:11 AM CDT Mere Mckeon NP LABORATORY Final Result [facility] [address] [place] [address], [place] [phone] from Last 3 Months Insurance [employer] Advance Directives * Full Code (Latest Code Status on File) Date Activated Date Inactivated Comments 10/15/2024 11:57 AM 10/17/2024 1:13 PM * Full Code Date Activated Date Inactivated Comments 04/29/2021 6:21 PM 04/30/2021 5:56 PM Care Teams Seismograph Operator Helper Relationship Specialty Start Date End Date Jordyn Michel FNP [address] [place] [id number] PCP - General Nurse Practitioner Family 04/30/21
--- OUTSIDE RECORDS SUMMARY | 2024-12-15 22:18 | XMS_ITS | Encounter Summary ---
Author Organization [facility] Healthcare Address [address] [place] [address] Care Team Providers Care Play Therapist Name Role Phone Jesús Yates MD Primary Care Provider [phone] Dionne Forde Primary Care Provider [phone] Encounter Details Date Type Department Care Team (Latest Contact Info) Description 11/04/2024 Results Follow-Up [facility] Gastroenterology at [address] [place] [id number] Guicho Thomas, [address] [place] [address] Folate, Iron profile w/ IBC, Vitamin B12, [...] on file Legal Sex Female 7:26 AM BROACHER Gender Identity Not on file Sexual Orientation Not on file documented as of this encounter Functional Status * BP Location Answer Date of Assessment Author Left arm 11/04/2024 9:03 AM CDT August Martinez MA * Alcohol Use Question Answer Date of Assessment Author Q1: How often do you have a drink containing alcohol? Never 11/04/2024 9:05 AM CDT Auugst Walker MA * BP Location Answer Date of Assessment Author Left arm 11/04/2024 9:03 AM CDT August Martinez MA documented as of this encounter Miscellaneous Notes * Result Encounter Note - August Walker MA - 11/04/2024 1:04 PM CDT Pt notified documented in this encounter Plan of Treatment Upcoming Encounters Date Type Department Care Team (Late st Contact Info) Description 03/11/2025 12:00 PM BROACHER Hospital Encounter [address] [address] uGicho Thomas DO [address] [facility] [address] [place] [address] [place] [address] 03/11/2025 12:00 PM BROACHER - 03/11/2025 12:30 PM BROACHER Surgery [address] [address] Guicho Thomas DO [address] [facility] [address] [place] [address] [place] [address] COLONOSCOPY Scheduled Procedures Name Priority Associated Diagnoses Date/Ti me COLONOSCOPY Chronic constipation Family history of colon cancer in father 03/11/2025 12:00 PM BROACHER documented as of this encounter Visit Diagnoses Not on filedocumented in this encounter Care Teams Play Therapist Relationship Specialty Start Date End Date Jesús Yates MD PCP - General Family Medicine 12/11/19 11/23/24 Dionne Forde PA [address] [address] PCP - General Family Medicine 11/24/24 documented as of this encounter
--- OUTSIDE RECORDS SUMMARY | 2024-12-15 22:18 | XMS_ITS | Clinical Summary ---
Author Organization [facility] Address [address] [place] [address] Phone Care Team Providers Care Early Head Start Director Name Role Phone Provider, None Primary Care [...] on file Legal Sex Female 10:42 PM [employer] Gender Identity Not on file Sexual Orientation Not on file Occupation Industry Job Start Date Job End Date Unemployed Not on file Not on file Not on file Last Filed Vital Signs Vital Sign Reading Time Taken Comments Blood Pressure 111/67 04/12/2021 2:15 PM [employer] Pulse 82 04/12/2021 2:44 PM [employer] Temperature 36.5 C (97.7 F) 04/12/2021 9:07 AM [employer] Respiratory Rate 20 04/12/2021 2:44 PM [employer] Oxygen Saturation 100% 04/12/2021 2:44 PM [employer] Inhaled Oxygen Concentration - - Weight 51.3 kg (113 lb) 04/12/2021 9:07 AM [employer] Height 157.5 cm (5' 2) 04/12/2021 9:07 AM [employer] Body Mass Index 20.67 04/12/2021 9:07 AM [employer] Plan of Treatment Health Maintenance Due Date [...] age to complete this topic Insurance MEDICAID [facility] Care Teams Early Head Start Director Relationship Specialty Start Date End Date Provider, None [place] PCP - General 11/24/18
--- OUTSIDE RECORDS SUMMARY | 2024-12-15 22:18 | XMS_ITS | Clinical Summary ---
Author Organization [facility] Address [address] [place] [address] Care Team Providers Care Chief Embalmer Name Role Phone Dionne Forde Primary Care Provider [phone]- [phone] Allergies Active Allergy Reactions Criticality Noted Date [...] 02/11/2020 Assessment & Plan (02/11/2020 11:49 AM HAND SUTURE WINDER): Yaa and Bry6. Discussed signs and symptoms of Severe Dehydration. Fiber Supplement for Constipation. Follow up with OB Less than 8 weeks gestation of 020 Assessment & Plan (01/15/2020 4:53 PM HAND SUTURE WINDER): Discussed briefly dos and don'ts of pregnancies. Anticipate normal risk . Recommend Tobacco Cessation. Discontinue Klonopin/Tramadol/Flexeri and take them only PRN. Contact [facility] cain. Referral. Encounters Date Type Department Care Team Description 12/14/19 Results Follow-Up [facility] Medicine [address] [place] [phone] Dionne Forde PA TSH, T4, free, T3, free, Additional followed-up results: 7 11/29/19 10:00 AM CDT Office Visit [facility] Family Medicine [address] [place] [address] [place] [phone] Dionne Forde PA Annual physical exam (Primary Dx); Nausea and vomiting, unspecified vomiting type; Menorrhagia with regular cycle; Anemia, unspecified type; Gastritis without bleeding, unspecified chronicity, unspecified gastritis type; Generalized anxiety disorder; BMI 21.0-21.9, adult 11/27/19 Results Follow-Up [facility] Gastroenterology at [address] [place] [address] Guicho Thomas, DO Surgical pathology 11/26/19 9:30 AM CDT - 11/26/19 9:51 AM CDT Surgery [address] [address] Guicho Thomas, DO ESOPHAGOGASTRODUODENOSCOPY BIOPSY 11/26/19 8:09 AM CDT Anesthesia Event [address] [address] Toy Montalvo, DO 11/26/19 7:29 AM CDT - 11/26/19 9:10 AM CDT Hospital Encounter [address] [address] Guicho Thomas, DO Nausea and vomiting, unspecified vomiting type; Gastroesophageal reflux disease, unspecified whether esophagitis present Discharge Disposition: Discharge to home or self care 11/26/19 Telephone [facility] Gastroenterology at [address] [address] Filomena Braxton 11/21/19 Telephone [facility] Gastroenterology at [address] [place] [address] Candace Braxton MA 11/05/19 9:55 AM CDT Lab [address] Abdominal pain; Gastroesophageal reflux disease, unspecified whether esophagitis present; Nausea and vomiting, unspecified vomiting type; Weight loss 11/05/19 9:00 AM CDT Office Visit [facility] Gastroenterology at [address] [address] Guicho Thomas, DO Abdominal pain (Primary Dx); Gastroesophageal reflux disease, unspecified whether esophagitis present; Nausea and vomiting, unspecified vomiting type; Weight loss; Family history of colon cancer; Chronic idiopathic constipation 11/05/19 Telephone [facility] Gastroenterology at [address] [address] DeniseAugust grace PR 11/05/19 25 Results Follow-Up [facility] Gastroenterology at [address] [place] [address] Guicho Thomas, DO Folate, Iron profile w/ IBC, Vitamin B12, Additional followed-up results: 13 11/05/19 25 Orders Only [facility] Gastroenterology at [address] [place] [address] Guicho Thomas, DO Hypokalemia (Primary Dx) 11/05/19 25 Telephone [facility] Gastroenterology at [address] [place] [address] Deya Cleary LPN 10/29/19 25 Telephone [facility] Gastroenterology at [address] [place] [address] Filomena Braxton from Last 3 Months Immunizations [...] on file Legal Sex Female 7:26 AM HAND SUTURE WINDER Gender Identity Not on file Sexual Orientation [...] st Contact Info) Description 03/11/2025 12:00 PM HAND SUTURE WINDER Hospital Encounter [address] [address] Guicho Thomas DO [address] [facility] [place] [address] 03/11/2025 12:00 PM HAND SUTURE WINDER - 03/11/2025 12:30 PM HAND SUTURE WINDER Surgery [address] [address] Guicho Thomas DO [address] [facility] [place] [address] COLONOSCOPY Scheduled Procedures Name Priority Associated Diagnoses Date/Ti me COLONOSCOPY Chronic constipation Family history of colon cancer in father 03/11/2025 12:00 PM HAND SUTURE WINDER Health Maintenance Due Date Last Done Comments [...] WITH AUTO DIFFERENTIAL Routine 12/11 11:56 AM HAND SUTURE WINDER COMPREHENSIVE METABOLIC PANEL Routine 11:56 AM HAND SUTURE WINDER MAGNESIUM Routine 12/11/2024 11:56 AM HAND SUTURE WINDER FERRITIN Routine 12/11/2024 11:56 AM HAND SUTURE WINDER Anemia, unspecified type IRON PROFILE W/ IBC Routine 12/11/2024 11:56 AM HAND SUTURE WINDER Anemia, unspecified type CALCIUM, IONIZED Routine 12/11/2024 11:56 AM HAND SUTURE WINDER Nausea and vomiting, unspecified vomiting type PTH Routine 12/11/2024 11:56 AM HAND SUTURE WINDER Nausea and vomiting, unspecified vomiting type T3, FREE Routine 12/11/2024 11:56 AM HAND SUTURE WINDER Nausea and vomiting, unspecified vomiting type T4, FREE Routine 12/11/2024 11:56 AM HAND SUTURE WINDER Nausea and vomiting, unspecified vomiting type TSH Routine 12/11/2024 11:56 AM HAND SUTURE WINDER Nausea and vomiting, unspecified vomiting type SURGICAL [...] Results * Calcium, ionized (12/11/2024 11:56 AM HAND SUTURE WINDER) Calcium, Ionized 5.1 4.7 - 5.5 mg/dL [facility] Blood 12/11/2024 11:5 6 AM HAND SUTURE WINDER 12/11/2024 11:56 AM HAND SUTURE WINDER Narrative [facility] - 12/12/2024 9:47 AM HAND SUTURE WINDER FASTING:NO FASTING: NO Dionne العراقي LAB BLOOD ORDERABLES Final Result [facility] [address] [place] [address] * Iron profile w/ IBC (12/11/2024 11:56 AM HAND SUTURE WINDER) Iron 82 40 - 190 mcg/dL [facility] TIBC 393 250 - 450 mcg/dL (calc) [facility] Iron saturation 21 16 - 45 % (calc) [facility] Blood 12/11/2024 11:5 6 AM HAND SUTURE WINDER 12/11/2024 11:56 AM HAND SUTURE WINDER Narrative [facility] - 12/12/2024 9:47 AM HAND SUTURE WINDER FASTING:NO FASTING: NO Dionne العراقي LAB BLOOD ORDERABLES Final Result [facility] [address] [address] [place] [address] * (ABNORMAL) CBC with auto differential (12/11/2024 11:56 AM HAND SUTURE WINDER) Pathologist [facility] WBC 6.2 3.8 - 10.8 Thousand/u L [...] [facility] 12/11/2024 11:5 6 AM HAND SUTURE WINDER 12/11/2024 11:56 AM HAND SUTURE WINDER Narrative [facility] - 12/12/2024 9:47 AM HAND SUTURE WINDER FASTING:NO FASTING: NO Dionne العراقي LAB BLOOD ORDERABLES Final Result Performing Organization Address [facility] Co de Phone Number [facility] [address] [place] [address] * T3, free (12/11/2024 11:56 AM HAND SUTURE WINDER) Free T3 3.0 2.3 - 4.2 pg/mL [facility] Blood 12/11/2024 11:5 6 AM HAND SUTURE WINDER 12/11/2024 11:56 AM HAND SUTURE WINDER Narrative [facility] - 12/12/2024 9:47 AM HAND SUTURE WINDER FASTING:NO FASTING: NO Dionne العراقي LAB BLOOD ORDERABLES Final Result Performing Organization Address [facility] Co de Phone Number [facility] [address] [place] [address] * TSH (12/11/2024 11:56 AM HAND SUTURE WINDER) TSH 0.79 mIU/L [facility] Comment: Reference Range > or = 20 Years 0.40-4.50 Ranges First trimester 0.26-2.66 Second trimester 0.55-2.73 Third trimester 0.43-2.91 Blood 12/11/2024 11:5 6 AM HAND SUTURE WINDER 12/11/2024 11:56 AM HAND SUTURE WINDER Narrative [facility] - 12/12/2024 9:47 AM HAND SUTURE WINDER FASTING:NO FASTING: NO Dionne العراقي LAB BLOOD ORDERABLES Final Result Performing Organization Address City/[facility]/ZIP Co de Phone Number [facility] [address] [place] [address] * T4, free (12/11/2024 11:56 AM HAND SUTURE WINDER) Free T4 1.0 0.8 - 1.8 ng/dL [facility] Blood 12/11/2024 11:5 6 AM HAND SUTURE WINDER 12/11/2024 11:56 AM HAND SUTURE WINDER Narrative [facility] - 12/12/2024 9:47 AM HAND SUTURE WINDER FASTING:NO FASTING: NO Dionne العراقي LAB BLOOD ORDERABLES Final Result Performing Organization Address City[facility]/ZIP Co de Phone Number [facility] [address] [place] [address] * PTH (12/11/2024 11:56 AM HAND SUTURE WINDER) Parathyroid hormone, intact 34 16 - 77 pg/mL [facility] Comment: Interpretive Guide Intact PTH Calcium ------- Normal Parathyroid Normal Normal Hypoparathyroidism Low or Low Normal Low Hyperparathyroidism Primary Normal or High High Secondary High Normal or Low Tertiary High High Non-Parathyroid Hypercalcemia Low or Low Normal High Blood 12/11/2024 11:5 6 AM HAND SUTURE WINDER 12/11/2024 11:56 AM HAND SUTURE WINDER Narrative [facility] - 12/12/2024 9:47 AM HAND SUTURE WINDER FASTING:NO FASTING: NO Dionne العراقي LAB BLOOD ORDERABLES Final Result [facility] [address] [place] [address] * Magnesium (12/11/2024 11:56 AM HAND SUTURE WINDER) Magnesium 2.2 1.5 - 2.5 mg/dL [facility] 12/11/2024 11:5 6 AM HAND SUTURE WINDER 12/11/2024 11:56 AM HAND SUTURE WINDER Narrative [facility] - 12/12/2024 9:47 AM HAND SUTURE WINDER FASTING:NO FASTING: NO Dionne العراقي LAB BLOOD ORDERABLES Final Result [facility] [address] [place] [address] * (ABNORMAL) Ferritin (12/11/2024 11:56 AM HAND SUTURE WINDER) Ferritin 8(L) 16 - 154 ng/mL [facility] Blood 12/11/2024 11:5 6 AM HAND SUTURE WINDER 12/11/2024 11:56 AM HAND SUTURE WINDER Narrative [facility] - 12/12/2024 9:47 AM HAND SUTURE WINDER FASTING:NO FASTING: NO Dionne العراقي LAB BLOOD ORDERABLES Final Result [facility] [address] [place] [address] * Comprehensive metabolic panel (12/11/2024 11:56 AM HAND SUTURE WINDER) Glucose 76 65 - 139 mg/dL [facility] Comment: Non-fasting reference interval BUN 10 7 - 25 mg/dL [facility] Creatinine 0.61 0.50 - 0.96 mg/dL [facility] eGFR 126 > OR = 60 mL/min/1.7 3m2 [facility] BUN/creat ratio SEE NOTE: 6 - 22 (calc) [facility] Comment: Not Reported: BUN and Creatinine are within reference range. Sodium 138 135 - 146 mmol/L [facility] Potassium, pl 4.0 3.5 - 5.3 mmol/L [facility] Chloride 103 98 - 110 mmol/L [facility] CO2 30 20 - 32 mmol/L [facility] Calcium 9.4 8.6 - 10.2 mg/dL [facility] Protein, sr 6.7 6.1 - 8.1 g/dL [facility] Albumin 4.7 3.6 - [...] [facility] 12/11/2024 11:5 6 AM HAND SUTURE WINDER 12/11/2024 11:56 AM HAND SUTURE WINDER Narrative [facility] - 12/12/2024 9:47 AM HAND SUTURE WINDER FASTING:NO FASTING: NO us Dionne العراقي LAB BLOOD ORDERABLES Final Result [facility] [address] [place] [address] * Surgical pathology (11/25/2024 12:08 PM CDT) Tissue (Gastric/Stomach biopsy) 11/25/2024 8:19 AM CDT Comment:Gastric biopsies - S tain for H. Pylori Narrative PATHOLOGY [facility] - 11/26/2024 9:33 AM CDT EPIC results best viewed via link to PDF [facility] Department of Pathology [address] [place] [address] Note to Patients: This report may contain [...] Final Report Patient Name: GIANNA CUEVAS Address: [facility] [place] [address] Gender: F : 1995 (Age: 29) Service: Gastro Location: [facility] #: [id number] Patient Type: [facility] Taken: 11/25/2024 Received: 11/25/2024 Accessioned: 11/25/2024 [...] determined by the Surgical Pathology Department at [facility] as part of an ongoing quality lab technician program and in compliance with federally mandated [...] characteristics determined by the Surgical Pathology Department [facility]. It has not been cleared or approved by the U. S. Food and Drug Administration. Note for decalcified specimens: This assay has not been validated on decalcified tissues. Results should be interpreted with caution given the possibility of false negativity on decalcified specimens Guicho Thomas DO LAB PATHOLOGY ORDERABLES Final Result PATHOLOGY [facility] [address] [place] [address] * EGD (11/25/2024 7:31 AM CDT) Anatomical Region Laterality Modality Other Narrative Procedure Note Guicho Thomas DO - 11/25/2024 7:31 AM CDT [facility] Patient Name: Gianna Cuevas Procedure Date: 11/25/2024 7:31 AM Date of : 1995 Admit Type: Outpatient Age: 29 Gender: Female Attending MD: Guicho Thomas D.O., Room: [facility] ENDOSCOPY ROOM 2 Note Status: Finalized Patient [...] passed under direct vision. The Endoscope [id number] was introduced through the mouth, and advanced [...] 7:31 AM Procedure Code(s): --- Professional --- 32374, Esophagogastroduodenoscopy, flexible, transoral; with biopsy, single or multiple --- Technical --- 30130, Esophagogastroduodenoscopy, flexible, transoral; with biopsy, single or multiple Diagnosis Code(s): --- Professional --- R11.2, Nausea with vomiting, unspecified --- Technical --- R11.2, Nausea with vomiting, unspecified CPT copyright 2022 [employer]. All rights reserved. The codes documented in this report are preliminary and upon professional fee coder reviewmay be revised to meet current compliance requirements. Recognized by the [employer] for promoting quality [...] LAB BLOOD ORDERABLES Final Res ult [facility] 1 [facility] Department [place] [address] * Differential, auto (11/04/2024 10:06 AM CDT) Neutrophil abs 6.47 1.50 - 6.50 K/cumm Imm gran abs 0.04 0.00 - 0.10 K/cumm [facility] Lymphocyte abs 1.30 0.80 - 3.30 K/cumm [facility] Monocyte abs 0.66 0.20 - 0.80 K/cumm [facility] Eosinophil abs 0.02 0.00 - 0.50 K/cumm [...] BLOOD ORDERABLES Final Res ult [facility] ([place] 1 [facility] Department [place] [address] * Thyroid Function Castro (11/04/2024 10:06 AM CDT) TSH 0.45 0.30 - 4.20 mcIUnit/mL [facility] ([place]) Blood 11/04/2024 10:0 6 AM CDT 11/04/2024 10:50 AM CDT Guicho Thomas DO LAB BLOOD ORDERABLES Final Res ult Performing Organization Address [facility] Co de Phone Number MAGDA [facility] ([place]) 1 [facility] [place] [address] * (ABNORMAL) Iron profile w/ IBC (11/04/2024 10:06 AM CDT) Pathologist [facility] Iron 48 35 - 145 mcg/dL [facility]) TIBC 329 250 - 400 mcg/dL [facility] ([place]) Transferrin saturation 15(L) 20 - 50 % [facility] ([place]) Blood 11/04/2024 10:0 6 AM CDT 11/04/2024 10:50 AM CDT Guicho Thomas DO LAB BLOOD ORDERABLES Final Res ult Performing Organization Address [facility] de Phone Number MAGDA [facility] ([place]) 1 [facility] [place] [address] * (ABNORMAL) CBC with auto differential (11/04/2024 10:06 AM CDT) Pathologist [facility] WBC 8.52 3.80 - 9.90 K/cumm Hgb 15.3 11.9 - 15.5 g/dL [facility] Hct 43.0 35.6 - 45.5 % [facility] ([place]) Plt 312 150 - 400 K/cumm [facility] ([place]) MPV 13.2(H) 9.1 - 12.3 fL [facility] RBC 4.97 3.90 - 5.20 [...] ORDERABLES Final Res ult Performing Organization Address [facility] Co de Phone Number [facility]DA [facility] ([place]) 1 [facility] [place] [address] * Copper, serum (11/04/2024 10:06 AM CDT) [facility] Copper 99 77 - 206 mcg/dL [facility] Comment: ADDITIONAL INFORMATION This test was developed and its performance characteristics determined by [facility] in a manner consistent with CLIA requirements. This test has not been cleared or approved by the U.S. Food and Drug Administration. Test Performed by: [facility] - [address] [address] Filament Welder: Sondra Miranda Ph.D.; CLIA# [id number] Blood 11/04/2024 10:0 6 AM CDT 11/04/2024 10:50 AM CDT Guicho Thomas LAB BLOOD ORDERABLES Final Res ult Performing Organization Address [facility] Co de Phone Number [facility] ([place]) 1 [facility] [place] [address] [place] ref [facility] * (ABNORMAL) Hepatitis A antibody, total Blood (11/04/2024 10:06 AM CDT) Hep A total Reactive( A) Nonreactive Comment:Testing performed by : [facility], [address] [place]., [address] Blood 11/04/2024 10:0 6 AM CDT 11/04/2024 3:25 PM CDT Guicho Thomas DO LAB MICROBIOLOGY - GENERAL ORD ERABLES Final Result [facility]DA [facility] ([place]) 1 [facility] Department [place] [address] * Hepatitis panel, acute Blood (11/04/2024 10:06 AM CDT) Hep A IgM Nonreactive Nonreactive Comment: Interpretive Data: If Hep A IgM Ab is reported as Equivocal, a new sample should be drawn in two weeks for testing. Current interpretive data was last revised on 19. Testing performed by: [facility], [address] [place] [address]., [address] Hep B core IgM Nonreactive Nonreactive Darrick [facility] ([place]) Comment: Interpretive Data If HepB Core IgM Ab is reported as Equivocal, a new sample should be drawn in two weeks for testing. Current interpretive data was last revised on 19. Testing performed by: [facility], [address] [place] [address]., [address] Hep C Ab Nonreactive Nonreactive MAGDA DUKES [...] last revised on 2019. Testing performed by: [facility], [address] [place] [address]., [address] HepBsAg Nonreactive Nonreactive [facility] ([place]) Comment:Testing performed by : [facility], [address] [place] [address]., [address] Blood 11/04/2024 10:0 6 AM CDT 11/04/2024 4:58 PM CDT Guicho Thomas DO LAB MICROBIOLOGY - GENERAL ORD ERABLES Final Result Performing Organization Address City/[facility] Co de Phone Number MAGDA [facility] 1 [facility] [place] [address] * Hepatitis B surface antibody (immune status) [...] last revised on 19. Testing performed by: [facility], [address] [place] [address]., [address] Blood 11/04/2024 10:0 6 AM CDT 11/04/2024 4:58 PM CDT Guicho Thomas DO LAB MICROBIOLOGY - GENERAL ORD ERABLES Final Result Performing Organization Address City/[facility] Co de Phone Number MAGDA [facility] ([place]) 1 [facility] [place] [address] * Protime-INR (11/04/2024 10:06 AM CDT) PT 13.1 10.2 - 13.5 sec [facility]DA [facility] ([place]) INR 1.16 0.90 - 1.20 [facility] Comment: Interpretive data Oral anticoagulant therapeutic ranges: Venous thromboembolism prophylaxis or treatment: 2.0-3.0 CARDIOLOGY Standard range: 2.0-3.0 High-intensity range: 2.5-3.5 Refer to indication-specific guidelines for appropriate target ranges for prosthetic heart valve replacement. Current interpretive data was last revised on 2019. Blood 11/04/2024 10:0 6 AM CDT 11/04/2024 10:50 AM CDT Guicho Thomas DO LAB BLOOD ORDERABLES Final Res ult [facility]DA [facility] ([place]) 1 [facility] [place] [address] * CRP (acute phase) (11/04/2024 10:06 AM CDT) CRP <3.0 <=10.0 mg/L MAGDA [facility]) Blood 11/04/2024 10:0 6 AM CDT 11/04/2024 10:50 AM CDT Guicho Thomas DO LAB BLOOD ORDERABLES Final Res ult Performing Organization Address City/[facility] Co de Phone Number MAGDA [facility] ([place]) 1 [facility] [place] [address] * TSH (11/04/2024 10:06 AM CDT) Thyroid Stimulating Hormone 0.45 0.30 - 4.20 mcIUnit/mL [facility]) Blood 11/04/2024 10:0 6 AM CDT 11/04/2024 10:50 AM CDT Guicho Thomas DO LAB BLOOD ORDERABLES Final Res ult [facility]DA [facility] ([place]) 1 [facility] [place] [address] * Phosphorus (11/04/2024 10:06 AM CDT) Phosphorus, pl 3.1 2.3 - 4.5 mg/dL [facility]) Blood 11/04/2024 10:0 6 AM CDT 11/04/2024 10:50 AM CDT Guicho Thomas DO LAB BLOOD ORDERABLES Final Res ult MAGAD [facility] ([place]) 1 [facility] [place] [address] * Magnesium (11/04/2024 10:06 AM CDT) Magnesium 2.1 1.4 - 2.5 mg/dL [facility]) Blood 11/04/2024 10:0 6 AM CDT 11/04/2024 10:50 AM CDT Guicho Thomas DO LAB BLOOD ORDERABLES Final Res ult [facility]DA [facility] ([place]) 1 [facility] [place] [address] * Folate (11/04/2024 10:06 AM CDT) Folic acid 16.6 >=5.0 ng/mL [facility]) Blood 11/04/2024 10:0 6 AM CDT 11/04/2024 10:50 AM CDT Guicho Thomas DO LAB BLOOD ORDERABLES Final Res ult [facility]) 1 [facility] [place] [address] * Ferritin (11/04/2024 10:06 AM CDT) Ferritin 74 13 - 150 ng/mL [facility] Blood 11/04/2024 10:0 6 AM CDT 11/04/2024 10:50 AM CDT Guicho Thomas DO LAB BLOOD ORDERABLES Final Res ult [facility]DA [facility] ([place]) 1 [facility] [place] [address] * (ABNORMAL) Vitamin B12 (11/04/2024 10:06 AM CDT) Vitamin B12 1,461(H) 230 - 1,250 pg/mL [facility] Blood 11/04/2024 10:0 6 AM CDT 11/04/2024 10:50 AM CDT Guicho Thomas DO LAB BLOOD ORDERABLES Final Res ult Performing Organization Address [facility] de Phone Number MAGDA [facility] ([place]) 1 [facility] [place] [address] * (ABNORMAL) Hepatic function panel (11/04/2024 10:06 [...] ORDERABLES Final Res ult Performing Organization Address City/[facility]/ZIP Co de Phone Number [facility]) 1 [facility] [place] [address] * (ABNORMAL) Lipid panel (11/04/2024 10:06 AM CDT) [facility] Signature Cholesterol 132 30 - 199 [...] last revised on 2023. Testing performed by: [place], [address] Non-HDL Cholesterol 95 mg/dL MAGDA [facility] ([place]) [...] last revised on 2017. Testing performed by: [place], [address] Chol/HDL ratio 4 [facility] ([place]) Comment:Testing performed by : [place], [address] Blood 11/04/2024 10:0 6 AM CDT 11/04/2024 10:50 AM CDT Guicho Thomas DO LAB BLOOD ORDERABLES Final Res ult MAGDA [facility] ([place]) 1 [facility] Department of Laboratories [place] [id number] * (ABNORMAL) Basic metabolic panel (11/04/2024 10:06 AM CDT) Sodium 135 135 - 145 mmol/L [facility]) Potassium, pl 3.0(C) 3.3 - 4.9 mmol/L [facility]) Comment:Critical Result call ed by [email or web address] at 2024-11-04 12:43:32. Result Read Back by [...] Final Res ult [facility]DA [facility] ([place]) 1 [facility] [facility] Department [place] [address] from Last 3 Months Insurance [facility] Advance Directives For more information, please contact: [phone] * Full Code (Latest Code Status on File) Date Activated Date Inactivated Comments 11/25/2024 7:36 AM 11/25/2024 1:21 PM * Full Code Date Activated Date Inactivated Comments 11/25/2024 7:36 AM 11/25/2024 7:36 AM Care Teams Chief Embalmer Relationship Specialty Start Date End Date Dionne Forde PA [address] [facility] [address] [place] [address] PCP - General Family Medicine 11/24/24
--- OUTSIDE RECORDS SUMMARY | 2024-12-15 22:18 | XMS_ITS | Encounter Summary ---
Author Organization [facility] Healthcare Address [address] [place] [address] Care Team Providers Care Ore Mixer Name Role Phone Dionne Forde Primary Care Provider [phone]- [phone] Encounter Details Date Type Department Care Team (Latest Contact Info) Description 11/26/2024 Results Follow-Up [facility] Gastroenterology at [address] [place] [address] Guicho Thomas, [address] [place] [address] Surgical pathology Social History Tobacco Use Types [...] on file Legal Sex Female 7:26 AM BONDING AND COMPOSITE FABRICATOR Gender Identity Not on file Sexual Orientation [...] st Contact Info) Description 03/11/2025 12:00 PM BONDING AND COMPOSITE FABRICATOR Hospital Encounter [address] [address] Guicho Thomas DO [address] [facility] [place] [address] 03/11/2025 12:00 PM BONDING AND COMPOSITE FABRICATOR - 03/11/2025 12:30 PM BONDING AND COMPOSITE FABRICATOR Surgery [address] [address] Guicho Thomas DO [address] [facility] [place] [address] COLONOSCOPY Scheduled Procedures Name Priority Associated Diagnoses Date/Ti me COLONOSCOPY Chronic constipation Family history of colon cancer in father 03/11/2025 12:00 PM BONDING AND COMPOSITE FABRICATOR documented as of this encounter Visit Diagnoses Not on filedocumented in this encounter Care Teams Ore Mixer Relationship Specialty Start Date End Date Dionne Forde PA [address] [facility] [address] [place] [address] PCP - General Family Medicine 11/24/24 documented as of this encounter
[2024-12-15 23:30] VITALS: BP 128/91; PULSE 92; RESP 18; TEMP 36.6; O2SAT 99
[2024-12-15 23:42] VITALS: BP 128/91; PULSE 92; RESP 18; TEMP 36.6; O2SAT 99
== END 2024-12-15 23:45 | disposition home or self-care (01) ==
PROVIDERS: Physician Assistant; Emergency Provider Student in an Organized Health Care Education/Training Program; PCP Physician Assistant
DX: R11.2 Nausea with vomiting, unspecified (principal); F17.290 Nicotine dependence, other tobacco product, uncomplicated; F41.9 Anxiety disorder, unspecified
CPT/HCPCS: 36415; 74177; 80053; 81001; 81025; 83690; 85025; 96361; 96374; 96375; 96376; 99284; A9270; J1100; J1790; J2003; J2250; J2405; J2704; J3010; J7030; J7120; Q9967

== ENCOUNTER 2025-01-28 07:41 | Observation (INO) | payer OTHER, SELFPAY ==
--- OUTSIDE RECORDS SUMMARY | 2024-10-28 11:00 | XMS_ITS ---
Author Organization [facility] Address [address] [place] [phone] Phone [phone] Care Team Providers Care Oleo Hasher And Renderer Name Role Phone Kimber Valles MD Unavailable [phone] Nevin Brooke Unavailable REASON FOR VISIT High Blood Pressure , Vomiting Social History Sex Observation Social History Observation Description Sex Observation Female Encounters Date Time Type Facility Location Provider Diagnosis 10/28/2024 11:00 AM Office Visit [facility] Primary Care - [address] [address] Nevin Bowling Plan Of Treatment No Information Medical (General) History Medical History History ICD Code Cannabinoid Hyperemesis Syndrome (CHS) COLONOSPY Hospitalization History Reason Date(Month/Year) Endoscopy Progress Notes * Lorrie CUEVASB: 8 (29 yo F)Acc No.[id number]:10/28/2024 Progress Notes Patient: Aisha Cuevas Provider: JOSY Randolph :1995 Age:29 Y Sex:Female Date:10/28/2024 Phone: Address:[address] [place], [place] [id number] Subjective: * Chief Complaints: * High Blood Pressure , Vomiting * Electronic signature of JOSY Camilo on 01/28/2025 at 11:16 AM SENIOR QUALITY ASSURANCE ANALYST Sign off status: Pending * Provider: JOSY Randolph Date: 10/28/2024 Generated for [employer]/Get/Angelinaitting on: 01/28/2025 11:16 AM SENIOR QUALITY ASSURANCE ANALYST
--- OUTSIDE RECORDS SUMMARY | 2024-11-11 09:40 | XMS_ITS ---
Author Organization [facility] [place] Address [address] [place] [phone] Phone [phone] Care Team Providers Care Youth Services Librarian Name Role Phone Kimber Valles MD Unavailable [phone] Nevin Brooke Unavailable [phone] REASON FOR VISIT High Blood pressure nausea, vomiting Social History Sex Observation Social History Observation Description Sex Observation Female Encounters Date Time Type Facility Location Provider Diagnosis 11/11/2024 09:40 AM Office Visit [facility] Primary Care - [address] [address] Nevin Bowling Plan Of Treatment No Information Medical (General) History Medical History History ICD Code Cannabinoid Hyperemesis Syndrome (CHS) COLONOSPY Hospitalization History Reason Date(Month/Year) Endoscopy Progress Notes * Lorrie CUEVASB: 8 (29 yo F)Acc No.[id number]:11/11/2024 Progress Notes Patient: Aisha Cuevas Provider: JOSY Randolph :1995 Age:29 Y Sex:Female Date:11/11/2024 Phone: Address:[address] [place], [place] [id number] Subjective: * Chief Complaints: * High Blood pressure nausea, vomiting * Electronic signature of JOSY Camilo on 01/28/2025 at 11:16 AM INSTRUMENT ASSEMBLY SUPERVISOR Sign off status: Pending * Provider: JOSY Randolph Date: 11/11/2024 Generated for Terra webster/Get/Angelinaitting on: 01/28/2025 11:16 AM INSTRUMENT ASSEMBLY SUPERVISOR
[2025-01-28] VITALS (8 sets, daily range): BP systolic 116–163; BP diastolic 82–111; PULSE 76–108; RESP 14–20; TEMP 36.1–36.8; O2SAT 100; BMI 22.2
--- NOTE | ~2025-01-28 | CT_ITS ---
EXAMINATION: CT abdomen pelvis w con DATE: 01/28/2025 11:23 INDICATION: Constipation. Nausea and vomiting. TECHNIQUE: Computed tomography (CT) of the abdomen and pelvis was performed with 100 mL Omnipaque-350 intravenous contrast. Automated exposure control and iterative reconstruction technique were employed. The dose-length product was 190.57 mGy-cm. COMPARISON: 12/15/2024 FINDINGS: Lung bases are clear. Heart size is normal. No pericardial or pleural effusion. Focal hepatic steatosis at the ligamentum teres. Gallbladder, spleen, pancreas, bilateral adrenal glands and kidneys are normal. Bowels including the appendix are normal. Small amount of fluid at the cecum with minimal stool throughout the more distal colon. Bladder, anteverted uterus and bilateral ovaries are normal. No free intraperitoneal gas or fluid. No pathologically enlarged abdominal or pelvic lymphadenopathy. Bones are unremarkable. IMPRESSION: 1. No acute intra-abdominal/pelvic process. Reviewed, dictated and finalized at location A. [facility] [employer]
--- NOTE | ~2025-01-28 | XR_ITS ---
EXAMINATION: XR chest 2V DATE: 01/28/2025 12:18 INDICATION: Chest pain, nausea and vomiting TECHNIQUE: frontal and lateral views of the chest were obtained. COMPARISON: Chest radiograph dated 10/23/24 FINDINGS: Nipple shadows project over the bilateral costophrenic angles. No airspace opacities, pulmonary edema, pleural effusion or pneumothorax. The cardiomediastinal silhouette is normal. Visualized bones and soft tissues are unremarkable. IMPRESSION: 1. Normal chest radiograph. Reviewed, dictated and finalized at location A. [employer] IMPRESSION: 1. Normal chest radiograph.
--- NOTE | 2025-01-28 10:25 | ECG_ITS ---
Test Date: 2025-01-28 10:38:01 Measurements Intervals [place] Rate: 69 P: -12 WA: 129 QRS: -59 QRSD: 98 T: 68 QT: 465 QTc: 500 Interpretive Statements SINUS RHYTHM WITH SINUS ARRHYTHMIA LEFT AXIS DEVIATION BASELINE ARTIFACT- I, II, III, AVR, AVL, AVF BORDERLINE ECG Compared to ECG 11/04/2024 13:32:51 HEART RATE HAS DECREASED Electronically Signed On 01-28-2025 11:32:54 INFRASTRUCTURE PROJECT MANAGER by Mehrdad Briones D.O.
[2025-01-28] MEDS: ONDANSETRON INJ 4 MG/2 ML VIAL IV PUSH (10:28)
[2025-01-28] MEDS: SODIUM CHLORIDE 0.9% IV 1,000 ML 999 ML IV CONT ×2 (10:28→11:01)
[2025-01-28] MEDS: FAMOTIDINE 20 MG/2 ML VIAL IV PUSH ×2 (10:32→20:22)
[2025-01-28 10:34] LABS: Hematocrit 49.0 % (37.0-47.0); Hemoglobin 16.8 g/dL (12.0-15.0); Immature Granulocyte Percent A 0.4 % (0-0.5); Lymphocytes Absolute Auto 1.96 K/mm3 (0.9-3.2); Mean Corpuscular HGB Conc 34.3 g/dl (32-36); Mean Corpuscular Hemoglobin 30.9 pg (26-34); Mean Corpuscular Volume 90.1 fl (80-100); Nucleated Red Blood Cells Absolute Auto 0.000 K/mm3 (0.0-0.012); Nucleated Red Blood Cells Perc 0.0 % (0.0-0.2); Platelet Count Result 389 k/mm3 (150-375); Red Blood Count 5.44 M/mm3 (4.2-5.4); White Blood Count 17.0 K/mm3 (4.5-10.0)
--- NOTE | 2025-01-28 10:44 | PC.NURSE ---
Pt states unable to give urine sample at this time. States she will try once she has some IVF in.
--- NOTE | 2025-01-28 10:47 | ED.NAVMDI ---
HPI - Nausea/Vomiting/Diarrhea General Chief complaint: Nausea/Vomiting/Diarrhea <NOAH Pierce Last Filed: 01/28/25 17:59> Stated complaint: N/V x 2 days <Cristy Mejia PA-C - Last Filed: 01/28/25 17:59> Time Seen by Provider: 01/28/25 10:15 <NOAH Pierce Last Filed: 01/28/25 17:59> Source: patient <NOAH Pierce Last Filed: 01/28/25 17:59> Mode of arrival: EMS <NOAH Pierce Last Filed: 01/28/25 17:59> Limitations: no limitations <NOAH Pierce Last Filed: 01/28/25 17:59> History of Present Illness HPI Narrative: Patient is a 29-year-old female, with past medical history of anxiety, presents to ED via EMS with report of nausea, vomiting. Patient reports having symptoms since Sunday. States her children have been sick with diarrhea as well. She does have history of previous nausea and vomiting episodes related to GI issues. Is prescribed Phenergan at home and has been taking this without relief. Denies abdominal pain. States she has been constipated. Is unsure of last bowel movement. At least 1 week ago. Reports chest discomfort. Denies fevers. <NOAH Pierce Last Filed: 01/28/25 17:59> Related Data Home medications: Home Medications ?Medication ?Instructions ?Recorded ?Confirmed ?Last Taken ?Type Lactobacillus 40-Bifidobact 1 cap PO DAILY 12/03/24 01/28/25 01/27/25 History 3-S.thermophilus 100 billion cell capsule (Probiotic) fluoxetine 20 mg capsule (Prozac) 20 mg PO DAILY 12/03/24 01/28/25 01/21/25 History magnesium 1 tablet PO DAILY 12/03/24 01/28/25 01/27/25 History <NOAH Pierce Last Filed: 01/28/25 17:59> Allergies/Adverse reactions: Allergies Allergy/AdvReac Type Severity Reaction Status Date / Time haloperidol (From Haldol) AdvReac Intermediate Anxiety Verified 01/28/25 18:15 metoclopramide AdvReac Intermediate Anxiety Verified 01/28/25 18:15 prochlorperazine (From AdvReac Intermediate Anxiety Verified 01/28/25 18:15 Compazine) <Cristy Mejia PA-C - Last Filed: 01/28/25 17:59> Review of Systems Review of Systems: All systems reviewed & are unremarkable except as noted in HPI. <Cristy Mejia PA-C - Last Filed: 01/28/25 17:59> All systems reviewed & are unremarkable except as noted in HPI and below <Cristy Mejia PA-C - Last Filed: 01/28/25 17:59> [facility] Past Medical History Medical History: Medical History (normal spontaneous vaginal delivery) 2020-severe hyperemesis, preeclampsia 2023 Anxiety Asthma childhood only <NOAH Pierce Last Filed: 01/28/25 17:59> Surgical History Surgical History: Surgical History History of bilateral tubal ligation In 2023 bilateral salpingectomies History of tympanostomy <NOAH Pierce Last Filed: 01/28/25 17:59> Family History Family History: Family History Father Alive and well Colon cancer Mother Alive and well Sibling Brain tumor <NOAH Pierce Last Filed: 01/28/25 17:59> Social History Social History: Social History Smoking packs per day: 0.5 Smoking cigarettes per day: 10.0 Years smoked: 12 Smoking pack-years: 6.00 Smoking status: Current every day smoker Tobacco type: e-cigarettes/vaping Second hand tobacco smoke exposure: No Smoking end date: 01/06/20 Additional smoking assessment comments: HAS BEEN SMOKING PUFF BAR SINCE NOVEMBER 2019 Alcohol intake: never Alcohol use details: 1/MONTH Substance use: current Substance use type: marijuana Other substance usage details: vape Last use: 01/27/2025 Lack of Transportation: No Lack of Food: Never True Current Housing: I Have Housing Concerned About Future Housing: No Difficulty Paying Gas/Electric Bills: No Difficulty Paying for Meds: No Currently Unemployed: YES Education: High School Diploma/GED Difficulty w/ Childcare or Family Care: No Living arrangements: with family Gender identity (if verbalized by the patient): Female Spiritual care concerns: No <Cristy Mejia PA-C - Last Filed: 01/28/25 17:59> Exam Narrative: GENERAL: Ill appearing, well-nourished, non-toxic, in no acute distress. HEAD: Normocephalic, atraumatic. RESPIRATORY: Airway patent, respirations nonlabored. Clear to auscultation bilaterally, no rales, rhonchi, wheezing. CARDIOVASCULAR: Tachycardic with regular rhythm without murmurs, rubs, or gallops. ABDOMINAL: Soft, no significant focal tenderness, nondistended. Normoactive BS. MUSCULOSKELETAL: Moves all extremities. No gross deformities. SKIN: Warm, dry, normal color. NEURO: A&O X3. Speech clear. Cranial nerves II-XII grossly intact. Steady gait. No ataxic movements. PSYCHIATRIC: Appropriate mood and affect. Normal interaction. <Cristy Mejia PA-C - Last Filed: 01/28/25 17:59> Course TANDEM MILL OPERATOR/PA Physician Supervision This visit was performed by both a physician and an APC. I performed all aspects of the MDM as documented. <Leonid Navarro MD - Last Filed: 01/28/25 19:12> Vital Signs Vital signs: Vital Signs Temperature 97.0 F L 01/28/25 07:54 Pulse Rate 108 H 01/28/25 07:54 Respiratory Rate 20 01/28/25 07:54 Blood Pressure 116/93 H 01/28/25 07:54 Pulse Oximetry 100 01/28/25 07:54 Oxygen Delivery Room Air 01/28/25 07:54 Temperature 97.9 F 01/28/25 17:56 Pulse Rate 80 01/28/25 17:56 Respiratory Rate 16 01/28/25 17:56 Blood Pressure 160/111 H 01/28/25 17:56 Pulse Oximetry 100 01/28/25 17:56 Oxygen Delivery Room Air 01/28/25 07:54 <Cristy Mejia PA-C - Last Filed: 01/28/25 17:59> Vital Signs Temperature 97.0 F L 01/28/25 07:54 Pulse Rate 108 H 01/28/25 07:54 Respiratory Rate 20 01/28/25 07:54 Blood Pressure 116/93 H 01/28/25 07:54 Pulse Oximetry 100 01/28/25 07:54 Oxygen Delivery Room Air 01/28/25 07:54 Temperature 97.9 F 01/28/25 17:56 Pulse Rate 80 01/28/25 17:56 Respiratory Rate 16 01/28/25 17:56 Blood Pressure 160/111 H 01/28/25 17:56 Pulse Oximetry 100 01/28/25 17:56 Oxygen Delivery Room Air 01/28/25 07:54 <Leonid Navarro MD - Last Filed: 01/28/25 19:12> MDM MDM Narrative Medical decision making narrative: Patient presented to ED with several day history of nausea, vomiting, difficulty keeping down food and drink. Mildly tachycardic upon arrival. Fluids initiated. CBC with leukocytosis of 17. This is common per previous records. Hemoconcentration noted with elevated hemoglobin today. Fluids are ongoing. CMP with potassium of 2.9. IV replacement ordered. Mild anion gap of 17. Normal bicarb. Normal kidney function. Mag within normal range. EKG without concerning ischemic changes, however does show prolonged QT interval. Will avoid further QT prolonging agents at this time. Troponin is undetectable. UA with evidence of dehydration, elevated specific gravity, 3+ ketones. Trace amount of WBC, but negative leuk esterase, negative nitrates. Will send for culture. Low suspicion for UTI. CT scan of abdomen/pelvis unremarkable. No evidence of obstruction or severe constipation. Chest x-ray clear Patient given 2 L of fluid in the ED in addition to 1 dose of Zofran, Pepcid, 2 separate doses of 25 mg IV Benadryl, Ativan. Attempted p.o. challenge multiple times, however patient unable to tolerate p.o. intake. Recurrent vomiting. Will admit at this point. Discussed case with Dr. Araya, hospitalist, accepted patient for admission. Patient is in agreement with plan and need for admission. <Cristy Mejia PA-C - Last Filed: 01/28/25 17:59> Differential Diagnosis Differential Diagnosis: Cyclic vomiting, gastroenteritis, constipation, bowel obstruction, electrolyte derangement <Cristy Mejia PA-C - Last Filed: 01/28/25 17:59> Medical Records I have reviewed the following patient records and this information was taken into consideration when formulating the assessment and plan.: previous labs, previous ER visits, previous hospitalizations and previous clinic visits <NOAH Pierce Last Filed: 01/28/25 17:59> Lab Data MDM Lab Attestation statement: I personally reviewed the patient's lab results. <Cristy Mejia PA-C - Last Filed: 01/28/25 17:59> Result diagrams: 01/28/25 10:25 01/28/25 10:25 <Cristy Mejia PA-C - Last Filed: 01/28/25 17:59> Labs: Lab Results 01/28/25 01/28/25 Range/Units 10:25 11:42 WBC 17.0 H (4.5-10.0) K/mm3 RBC 5.44 H (4.2-5.4) M/mm3 Hgb 16.8 H D (12.0-15.0) g/dL Hct 49.0 H (37.0-47.0) % MCV 90.1 (80-100) fl MCH 30.9 (26-34) pg MCHC 34.3 (32-36) g/dl RDW 11.8 (11.5-14.5) % Plt Count 389 H D (150-375) k/mm3 MPV 11.9 H (7.4-10.4) fl Immature Gran % (Auto) 0.4 (0-0.5) % Neut % (Auto) 80.8 H (45.5-73.1) % Lymph % (Auto) 11.5 L (18.3-44.2) % [place] % (Auto) 7.0 (2.6-8.5) % Eos % (Auto) 0.1 (0-4.4) % Baso % (Auto) 0.2 (0.2-1.2) % Lymph # (Auto) 1.96 (0.9-3.2) K/mm3 [place] # (Auto) 1.2 H (0.1-0.6) K/mm3 Eos # (Auto) 0.0 (0-0.3) K/mm3 Baso # (Auto) 0.0 (0.0-0.1) K/mm3 Abs Immat Gran (auto) 0.07 H (0.00-0.031) K/mm3 Absolute Neuts (auto) 13.8 H (1.3-6.7) K/mm3 Absolute Nucleated RBC 0.000 (0.0-0.012) K/mm3 Nucleated RBC % 0.0 (0.0-0.2) % Sodium 136 L (137-145) mmol/L Potassium 2.9 L (3.4-5.0) mmol/L Chloride 94 L (98-107) mmol/L Carbon Dioxide 25 (22-30) mmol/L Anion Gap 17 H (4-12) mmol/L BUN 22 H (7-17) mg/dL Creatinine 0.73 (0.7-1.0) mg/dL Estim Creat Clear Calc 79 ml/min Estimated GFR > 60 (59 - ) Glucose 121 H (65-110) mg/dL Calcium 10.0 (8.4-10.2) mg/dL Magnesium 2.1 (1.6-2.3) mg/dL Total Bilirubin 1.0 (0.2-1.3) mg/dL AST 31 (14-36) U/L ALT 26 (6-35) U/L Alkaline Phosphatase 74 (38-126) U/L Troponin I < 0.012 (0.000-0.034) ng/mL Total Protein 10.2 H (6.3-8.2) g/dL Albumin 5.8 H (3.5-5.1) g/dL Lipase 52 (23-300) U/L Urine Color Yellow (Yellow) Urine Appearance Cloudy H (Clear) Urine pH 6.5 (5.0-9.0) Ur Specific [place] > 1.045 H (1.001-1.035) Urine Protein 2+ H (Negative) mg/dL Urine Glucose (UA) Negative (Negative) mg/dL Urine Ketones 3+ H (Negative) mg/dL Ur Blood (Man) Trace (Negative) Urine Nitrate Negative (Negative) Urine Bilirubin Negative (Negative) Urine Urobilinogen 0.2 (<2.0) mg/dL Leukocyte Esterase Rfl Negative (Negative) PERRY/UL Urine RBC 3-5 H (0-2) /hpf Urine WBC 11-20 H (0-3) /hpf Ur Squamous Epith Cells Few (Few) /hpf Urine Bacteria 1+ H /hpf Urine Casts 0-2 Urine Mucus Present /lpf <Cristy Mejia PA-C - Last Filed: 01/28/25 17:59> Lab Results 01/28/25 01/28/25 Range/Units 10:25 11:42 WBC 17.0 H (4.5-10.0) K/mm3 RBC 5.44 H (4.2-5.4) M/mm3 Hgb 16.8 H D (12.0-15.0) g/dL Hct 49.0 H (37.0-47.0) % MCV 90.1 (80-100) fl MCH 30.9 (26-34) pg MCHC 34.3 (32-36) g/dl RDW 11.8 (11.5-14.5) % Plt Count 389 H D (150-375) k/mm3 MPV 11.9 H (7.4-10.4) fl Immature Gran % (Auto) 0.4 (0-0.5) % Neut % (Auto) 80.8 H (45.5-73.1) % Lymph % (Auto) 11.5 L (18.3-44.2) % [place] % (Auto) 7.0 (2.6-8.5) % Eos % (Auto) 0.1 (0-4.4) % Baso % (Auto) 0.2 (0.2-1.2) % Lymph # (Auto) 1.96 (0.9-3.2) K/mm3 [place] # (Auto) 1.2 H (0.1-0.6) K/mm3 Eos # (Auto) 0.0 (0-0.3) K/mm3 Baso # (Auto) 0.0 (0.0-0.1) K/mm3 Abs Immat Gran (auto) 0.07 H (0.00-0.031) K/mm3 Absolute Neuts (auto) 13.8 H (1.3-6.7) K/mm3 Absolute Nucleated RBC 0.000 (0.0-0.012) K/mm3 Nucleated RBC % 0.0 (0.0-0.2) % Sodium 136 L (137-145) mmol/L Potassium 2.9 L (3.4-5.0) mmol/L Chloride 94 L (98-107) mmol/L Carbon Dioxide 25 (22-30) mmol/L Anion Gap 17 H (4-12) mmol/L BUN 22 H (7-17) mg/dL Creatinine 0.73 (0.7-1.0) mg/dL Estim Creat Clear Calc 79 ml/min Estimated GFR > 60 (59 - ) Glucose 121 H (65-110) mg/dL Calcium 10.0 (8.4-10.2) mg/dL Magnesium 2.1 (1.6-2.3) mg/dL Total Bilirubin 1.0 (0.2-1.3) mg/dL AST 31 (14-36) U/L ALT 26 (6-35) U/L Alkaline Phosphatase 74 (38-126) U/L Troponin I < 0.012 (0.000-0.034) ng/mL Total Protein 10.2 H (6.3-8.2) g/dL Albumin 5.8 H (3.5-5.1) g/dL Lipase 52 (23-300) U/L Urine Color Yellow (Yellow) Urine Appearance Cloudy H (Clear) Urine pH 6.5 (5.0-9.0) Ur Specific [place] > 1.045 H (1.001-1.035) Urine Protein 2+ H (Negative) mg/dL Urine Glucose (UA) Negative (Negative) mg/dL Urine Ketones 3+ H (Negative) mg/dL Ur Blood (Man) Trace (Negative) Urine Nitrate Negative (Negative) Urine Bilirubin Negative (Negative) Urine Urobilinogen 0.2 (<2.0) mg/dL Leukocyte Esterase Rfl Negative (Negative) PERRY/UL Urine RBC 3-5 H (0-2) /hpf Urine WBC 11-20 H (0-3) /hpf Ur Squamous Epith Cells Few (Few) /hpf Urine Bacteria 1+ H /hpf Urine Casts 0-2 Urine Mucus Present /lpf <Leonid Navarro MD - Last Filed: 01/28/25 19:12> Imaging Data Attestation: I personally reviewed and interpreted this imaging study as follows: <Cristy Mejia PA-C - Last Filed: 01/28/25 17:59> Radiologist's impression: ITS Impressions Abdomen/Pelvis CT 01/28/25 11:27 IMPRESSION: 1. No acute intra-abdominal/pelvic process. Chest X-Ray 01/28/25 12:24 IMPRESSION: 1. Normal chest radiograph. <Cristy Mejia PA-C - Last Filed: 01/28/25 17:59> ITS Impressions Abdomen/Pelvis CT 01/28/25 11:27 IMPRESSION: 1. No acute intra-abdominal/pelvic process. Chest X-Ray 01/28/25 12:24 IMPRESSION: 1. Normal chest radiograph. <Leonid Navarro MD - Last Filed: 01/28/25 19:12> ECG Data EKG #1: Attestation: I personally reviewed and interpreted this ECG as follows: <Cristy Mejia PA-C - Last Filed: 01/28/25 17:59> ECG completion date: 01/28/25 <Cristy Mejia PA-C - Last Filed: 01/28/25 17:59> ECG completion time: 10:38 <Cristy Mejia PA-C - Last Filed: 01/28/25 17:59> normal rate (69), sinus rhythm, non-specific ST changes and prolonged QT (465, qtc 500) <Cristy Mejia PA-C - Last Filed: 01/28/25 17:59> Discharge Plan Discharge Clinical Impression: Intractable nausea and vomiting, Hypokalemia, Prolonged QT interval <Cristy Mejia PA-C - Last Filed: 01/28/25 17:59> Patient Disposition: Still a Patient <Cristy Mejia PA-C - Last Filed: 01/28/25 17:59> Condition: Stable <Cristy Mejia PA-C - Last Filed: 01/28/25 17:59>
[2025-01-28 10:48] LABS: Alanine Aminotransferase 26 U/L (6-35); Albumin Level 5.8 g/dL (3.5-5.1); Alkaline Phosphatase 74 U/L (38-126); Anion Gap 17 mmol/L (4-12); Aspartate Amino Transferase 31 U/L (14-36); Bilirubin,Total 1.0 mg/dL (0.2-1.3); Blood Urea Nitrogen 22 mg/dL (7-17); Calcium 10.0 mg/dL (8.4-10.2); Carbon Dioxide 25 mmol/L (22-30); Chloride 94 mmol/L (98-107); Estimated CRCL calculation 79 ml/min; Estimated Glomerular Filt Rate > 60; Glucose 121 mg/dL (65-110); Lipase 52 U/L (23-300); Magnesium 2.1 mg/dL (1.6-2.3); Potassium 2.9 mmol/L (3.4-5.0); Sodium 136 mmol/L (137-145); Total Protein 10.2 g/dL (6.3-8.2)
[2025-01-28 10:59] LABS: Troponin I < 0.012 ng/mL (0.000-0.034)
[2025-01-28] MEDS: KCL 20 MEQ/SW 100 ML 100 ML 50 MEQ IVPB ×2 (11:09→16:35)
--- OUTSIDE RECORDS SUMMARY | 2025-01-28 11:16 | XMS_ITS | Encounter Summary ---
Author Organization [facility] Address [address] [place] [address] Care Team Providers Care Director Of Music Name Role Phone None, Provider Primary Care Provider Unavaila courtney None, Provider Primary Care Provider Unavaila ble Jordyn Michel Primary Care Provider [phone] Encounter Details Date Type Department Care Team (Late st Contact Info) Description 04/26/2021 Prep for Procedure [facility] [place] [address] Guicho Thomas, DO [address] [facility] [address] [place] [address] Social History Tobacco Use Types Packs/Day Years [...] PM CDT documented as of this encounter Plan of Treatment Not on file documented as of this encounter Results * CORONAVIRUS (COVID 19) (05/02/2021 10:20 AM CDT) SPEC DESCRIPTION NASAL 05/03/19 10:21 AM CDT [facility] CORONAVIRUS SARS COV 2 PCR (RESP) NEGATIVE NEGATIVE 05/02/2021 7:45 PM CDT [facility] Comment: THE SARS-CoV-2 TEST HAS BEEN AUTHORIZED BY THE FDA UNDER AN EUA FOR USE BY AUTHORIZED LABORATORIES. PERFORMED BY NUCLEIC ACID AMPLIFICATION PCR FIRST TEST UNKNOWN 05/02/2021 10:21 AM CDT [facility] EMPLOYED IN HEALTHCARE NO 05/02/2021 10:21 AM CDT [facility] SYMPTOMATIC DEFINED BY CDC NO 05/02/2021 10:21 AM CDT [facility] HOSPITALIZATION STATUS NO 05/02/2021 10:21 AM CDT [facility] PATIENT IN ICU NO 05/02/2021 10:21 AM CDT [facility] RESIDENT OF [facility] NO 05/02/2021 10:21 AM CDT [facility] UNKNOWN 05/02/2021 10:21 AM CDT [facility] NASAL STRUCTURE / Unknown 05/02/2021 10:20 AM CDT Guicho Thomas DO MICROBIOLOGY - GENERAL ORDERABL ES Final Result [facility] [address] [place] [address], [place] [phone] [facility] [address] [place] [address], [place] [phone] documented in this encounter Visit Diagnoses Diagnosis Weight loss- Primary Loss of weight documented in this encounter Additional Health Concerns Infection Onset Date Last Indicated Resolved Time COVID-19 Rule Out 05/02/2021 05/02/2021 05/02/2021 7:45 PM CDT documented as of this encounter Care Teams Director Of Music Relationship Specialty Start Date End Date None, Provider, MD PCP - General 04/07/21 04/28/21 None, Provider, PCP - General 04/29/21 04/29/21 Jordyn Michel FNP [address] [place] [id number] PCP - General Nurse Practitioner Family 04/30/21 documented as of this encounter
--- OUTSIDE RECORDS SUMMARY | 2025-01-28 11:16 | XMS_ITS | Encounter Summary ---
Author Organization [facility] Healthcare Address [address] [place] [address] Care Team Providers Care Electric Powerline Examiner Name Role Phone Dionne Forde Primary Care Provider [phone] Encounter Details Date Type Department Care Team (Late st Contact Info) Description 12/13/2024 Results Follow-Up [facility] Family Medicine [address] [place] [address] Dionne Forde PA [address] [place] [address] TSH, T4, free, T3, free, [...] on file Legal Sex Female 7:26 AM PARLIAMENTARY LIBRARIAN Gender Identity Not on file Sexual Orientation Not on file documented as of this encounter Plan of Treatment Upcoming Encounters Date Type Department Care Team (Late st Contact Info) Description 03/11/2025 12:00 PM PARLIAMENTARY LIBRARIAN Hospital Encounter [address] [address] Guicho Thomas, DO [address] [facility] [address] [place] [address] 03/11/2025 12:00 PM PARLIAMENTARY LIBRARIAN - 03/11/2025 12:30 PM PARLIAMENTARY LIBRARIAN Surgery [address] [address] Guicho Thomas, [address] [facility] [address] [place] [address] COLONOSCOPY Scheduled Procedures Name Priority Associated Diagnoses Date/Ti me COLONOSCOPY Chronic constipation Family history of colon cancer in father 03/11/2025 12:00 PM PARLIAMENTARY LIBRARIAN documented as of this encounter Visit Diagnoses Not on filedocumented in this encounter Care Teams Electric Powerline Examiner Relationship Specialty Start Date End Date Dionne Forde PA [address] [place] [address] PCP - General Family Medicine 11/24/24 documented as of this encounter
--- OUTSIDE RECORDS SUMMARY | 2025-01-28 11:16 | XMS_ITS | Encounter Summary ---
Author Organization [facility] Healthcare Address [address] [place] [address] Care Team Providers Care Rn Travel Name Role Phone Dionne Forde Primary Care Provider [phone] Encounter Details Date Type Department Care Team (Latest Contact Info) Description 11/26/2024 Results Follow-Up [facility] Gastroenterology at [address] [place] [address] Guicho Thomas, [address] [place] [address] Surgical pathology Social History Tobacco Use Types Packs/Day Years Used Date Smoking Tobacco: Every Day Vaping Smokeless Tobacco: Never Alcohol Use Standard Drinks/Week Comments Yes 0 (1 standard drink = 0.6 oz pur e alcohol) PHQ-2 Answer Date Recorded PHQ-2 Total Score (If total score is 3 or more points, staff should administer the PHQ-9) 0 01/05/2025 AUDIT-C Answer Date Recorded Q1: How often do you have a drink containing alc ohol? Monthly or less 01/05/2025 Q2: How many drinks containi ng alcohol do you have on a typical day when you are drinking? 1 or 2 01/05/2025 Q3: How often do you have si x or more drinks on one occasion? Never 01/05/2025 Personal Safety Answer Date Recorded Have you ever been in or are you currently in a harmful physical or emotional relationship or is someone making you feel afraid or unsafe? Denies 11/25/2024 Comments No Sex and Gender Information Value Date Recorded Sex Assigned at Not on file Legal Sex Female 7:26 AM ENTERPRISE RECORDS ANALYST Gender Identity Not on file Sexual Orientation Not on file documented as of this encounter Plan of Treatment Upcoming Encounters Date Type Department Care Team (Late st Contact Info) Description 03/11/2025 12:00 PM ENTERPRISE RECORDS ANALYST Hospital Encounter [address] [address] Guicho Thomas, DO [address] [facility] [address] [place] [address] 03/11/2025 12:00 PM ENTERPRISE RECORDS ANALYST - 03/11/2025 12:30 PM ENTERPRISE RECORDS ANALYST Surgery [address] [address] Guicho Thomas, DO [address] [facility] [address] [place] [address] COLONOSCOPY Scheduled Procedures Name Priority Associated Diagnoses Date/Ti me COLONOSCOPY Chronic constipation Family history of colon cancer in father 03/11/2025 12:00 PM ENTERPRISE RECORDS ANALYST documented as of this encounter Visit Diagnoses Not on filedocumented in this encounter Care Teams Rn Travel Relationship Specialty Start Date End Date Dionne Forde PA [address] [place] [address] PCP - General Family Medicine 11/24/24 documented as of this encounter
--- OUTSIDE RECORDS SUMMARY | 2025-01-28 11:16 | XMS_ITS | Patient Health Record ---
Author Organization [facility] Address [address] [place], [place] [address] Phone [phone] Care Team Providers Care Rigger Supervisor Name Role Phone Kimber Valles MD Unavailable [phone] Nevin Brooke Unavailable Allergies Allergen (clinical drug ingredient) Drug/Non Drug Allergy documented on EMR Reaction Allergy Type Onset Date Status metoclopramide Reglan Unknown Drug Allergy Ac tive Compazine Unknown Drug Allergy Active Reason For Referral No Information Medications Medication SIG (Take, Route, Frequency, Duration) Notes Start Date End Date Diagnosis (ICD Code) Status cloNIDine HCl 0.1 MG Tablet 1 tablet Orally Once a day Not-Taking Promethazine HCl [address] 25 MG RECTALLY EVERY 6 HOURS NEEDED FOR NAUSEA AND VOMITING Rectal; Duration: 3 Days Active Propranolol HCl 10 MG Tablet 1 tablet on an empty stomach Orally three time daily as needed for heart rate over 90 bpm; Duration: 30 days 10/27/2024 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 Social History Sex Observation Social History Observation Description Sex Observation Female Social History Section Notes: VAPE Problems Problem Type SNOMED Code ICD Code Dates Problem Status W/U Status Risk Notes Problem Thyrotoxicosis (03809678) Other thyrotoxicosis without thyrotoxic crisis or storm (E05.80) Added On:10/27 Active confirmed Problem Irregular menstruation (37559148) Irregular menstruation, unspecified (N92.6) Added On:10/27 Active confirmed Vital Signs Vital Sign Value Notes Appt Date Heart Rate 103 /min 10/27/2024 Height-cm 157.48 cm 10/27/2024 Oximetry 98 % 10/27/2024 Blood pressure diastolic 88 mm Hg Weight-kg 52.44 kg 10/27/2024 Height 62 in 10/27/2024 Blood pressure systolic 119 mm Hg 10/07 Weight 115.6 lbs 10/27/2024 BMI 21.14 kg/m2 10/27/2024 Encounters Date Time Type Facility Location Provider Diagnosis 02:00 PM Office Visit, New Pt., Level 3 (22419) [facility] Vall[facility] [address] [place] [address] Kimber Valles Other thyrotoxicosis without thyrotoxic crisis or storm E05.80 ; Abnormal weight loss R63.4 ; Irregular menstruation, unspecified N92.6 ; Palpitations R00.2 and Loose stools R19.5 11:54 AM Telephone Encounter [facility] 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 Possibility of withdrawal contributing to current symptoms, although patient notes that smoking now increases nausea.Plan:- Monitor for improvement of symptoms over time as body adjusts to chemical changes- Educate patient on potential withdrawal symptoms and their duration Tachycardia and Blood Pressure FluctuationsAssessment : Patient reports consistently elevated heart rate (above [...] examination and/or evaluation, counseling and educating the patient/family/caregiv er, ordering medications, tests, or procedures, referring and communicating with other health direct care provider, documenting clinical information in the electronic or other health record, independently interpreting results and communicating results to the patient/family/caregiv er and care coordinating patient plan. Patient alert [...]
--- OUTSIDE RECORDS SUMMARY | 2025-01-28 11:16 | XMS_ITS | Encounter Summary ---
Author Organization [facility] Healthcare Address [address] [place] [address] Care Team Providers Care Corporate Claims Examiner Name Role Phone Dionne Forde Primary Care Provider [phone] Encounter Details Date Type Department Care Team (Late st Contact Info) Description 12/15/2024 Orders Only [facility] Health Information Management [address] [place] [id number] Scanning, Provider Social History Tobacco Use Types Packs/Day Years Used Date Smoking Tobacco: Every Day Vaping Smokeless Tobacco: Never Alcohol Use Standard Drinks/Week Comments Yes 0 (1 standard drink = 0.6 oz pur e alcohol) PHQ-2 Answer Date Recorded PHQ-2 Total Score (If total score is 3 or more points, staff should administer the PHQ-9) 0 12/18/2024 AUDIT-C Answer Date Recorded Q1: How often do you have a drink containing alc ohol? Monthly or less 12/18/2024 Q2: How many drinks containi ng alcohol do you have on a typical day when you are drinking? 1 or 2 12/18/2024 Q3: How often do you have si x or more drinks on one occasion? Never 12/18/2024 Personal Safety Answer Date Recorded Have you ever been in or are you currently in a harmful physical or emotional relationship or is someone making you feel afraid or unsafe? Denies 11/25/2024 Comments No Sex and Gender Information Value Date Recorded Sex Assigned at Not on file Legal Sex Female 7:26 AM TONGUE TRIMMER Gender Identity Not on file Sexual Orientation Not on file documented as of this encounter Plan of Treatment Upcoming Encounters Date Type Department Care Team (Late st Contact Info) Description 03/11/2025 12:00 PM TONGUE TRIMMER Hospital Encounter [address] [address] Guicho Thomas, DO [address] [facility] [address] [place] [address] 03/11/2025 12:00 PM TONGUE TRIMMER - 03/11/2025 12:30 PM TONGUE TRIMMER Surgery [address] [address] Guicho Thomas, DO [address] [facility] [place] [address] COLONOSCOPY Scheduled Procedures Name Priority Associated Diagnoses Date/Ti me COLONOSCOPY Chronic constipation Family history of colon cancer in father 03/11/2025 12:00 PM TONGUE TRIMMER documented as of this encounter Procedures Procedure Name Priority Date/Time Associated Diagnosis Comments SCAN - RADIOLOGY/IMAGING 12/15/2024 documented in this encounter Results * SCAN - RADIOLOGY/IMAGING (12/15/2024) Anatomical Region Laterality Modality Other us Provider Scanning Final Result documented in this encounter Visit Diagnoses Not on filedocumented in this encounter Care Teams Corporate Claims Examiner Relationship Specialty Start Date End Date Dionne Forde PA [address] [place] [address] PCP - General Family Medicine 11/24/24 documented as of this encounter
--- OUTSIDE RECORDS SUMMARY | 2025-01-28 11:17 | XMS_ITS | Clinical Summary ---
Author Organization [facility] Address [address] [place] [address] Care Team Providers Care Grapple Operator Name Role Phone Jordyn Michel JOSY Primary Care Provider [phone] Allergies Active Allergy Reactions Criticality Noted Date [...] Intractable nausea and vomiting 10/15/2024 Hypokalemia 04/29/2021 Family History Medical History Relation [...] from your doctor or pharmacy? Never 10/15/2024 [facility] Utilities Answer Date Recorded In the past 12 months has e electric, gas, oil, or water company threatened to shut off services in your [...] week 10/15/2024 How often do you attend [facility] or [facility] services? Never 10/15/2024 Do you belong to any clubs o r organizations such as spiritism groups, unions, fraternal or athletic groups, or [...] Patient Health Questionnaire-2 Score 0 10/15/2024 [facility] - Occupational Stress [...] any time in the past [address] [facility], were you homeless or living in a senior living (including now)? No 10/15/2024 Comments No Sex [...] Meningococcal Vaccine Completed 12/01/2015, 009 PHQ-2 (Physician [place]) Completed 10/15/2024 Meningococcal B Vaccine Aged Out [...] 6:21 PM 04/30/2021 5:56 PM Care Teams Grapple Operator Relationship Specialty Start Date End Date Jordyn Michel FNP [address] [place] [address] PCP - General Nurse Practitioner Family 04/30/21
--- OUTSIDE RECORDS SUMMARY | 2025-01-28 11:17 | XMS_ITS | Clinical Summary ---
Author Organization [facility] Address [address] [place] [address] Phone Care Team Providers Care Business Practices Officer Name Role Phone Provider, None Primary Care [...] on file Legal Sex Female 10:[address] SPRINKLER Gender Identity Not on file Sexual Orientation Not on file Occupation Industry Job Start Date Job End Date Unemployed Not on file Not on file Not on file Last Filed Vital Signs Vital Sign Reading Time Taken Comments Blood Pressure 111/67 04/12/2021 2:[address] SPRINKLER Pulse 82 04/12/2021 2:[address] [employer]INK[place] Temperature 36.5 C (97.7 F) 04/12/2021 9:[address] SPRINKLER Respiratory Rate 20 04/12/2021 2:[address] [employer]INK[place]ER Oxygen Saturation 100% 04/12/2021 2:[address] SPRINKLER Inhaled Oxygen Concentration - - Weight 51.3 kg (113 lb) 04/12/2021 9:[address] SPRINKLER Height 157.5 cm (5' 2) 04/12/2021 9:[address] SPRINK[place] Body Mass Index 20.67 04/12/2021 9:[address] SPRINK[place]ER Plan of Treatment Health Maintenance Due Date Last Done Comments Hepatitis C Virus (HCV) Screening 1997 Human Papillomavirus (HPV) Immunization (2 - 2-dose series) 04/05/2009 10/06/2008 Influenza Immunization (#1) 10/06/202411/06, 02/08/2009, 02/07/2007 SARS-COV-2 Immunization ( season) 2024 Respiratory Syncytial Virus (RSV) Immunization (Adult) (1 - 1-dose 75+ series) 2072 Hepatitis B Immunization Completed 998, 1997, 1997 Varicella Immunization Completed 02/07/2007, 1998 Meningococcal Immunization (ACWY) Completed 12/01/2015, 08/03/2008 DTaP/Tdap/Td Immunization Discontinued 2020, 09/05/2007, 05/30/2001, Additional history exists TdaP Immunization Completed 09/18/2020, 09/05/2007 Pneumococcal Immunization Combined Aged Out No longer eligible based on patient's age to complete this topic Rotavirus Immunization Aged Out No lo nger eligible based on patient's age to complete this topic Insurance MEDICAID [employer] Care Teams Business Practices Officer Relationship Specialty Start Date End Date Provider, None ID PCP - General 11/24/18
--- OUTSIDE RECORDS SUMMARY | 2025-01-28 11:17 | XMS_ITS | Clinical Summary ---
Author Organization [facility] Address [address] [place] [address] Care Team Providers Care Pumper Head Name Role Phone Dionne Forde Primary Care Provider [phone] Allergies Active Allergy Reactions Criticality Noted Date Comments Prochlorperazine Anxiety Low 07/03/2017 Haloperidol Other (See comments) High 12/15/2024 Metoclopramide Hcl Anxiety Low 07/03/2017 Medications omeprazole (PriLOSEC) 40 mg capsule Take 1 capsule (40 mg total) by mouth daily 90 capsule 3 025 2025 Active Additional Information Patient not taking.Reported on 01/05/2025 FLUoxetine (PROzac) 20 mg capsule Take 1 capsule (20 mg total) by mouth daily 90 capsule 025 2025 Active ferrous sulfate 325 mg (65 mg of elemental iron) tabletIndicati ons:Iron Deficiency Anemia Take 1 tablet (325 mg total) by mouth daily with breakfast 90 tablet 1 025 2025 Active hydrOXYzine (ATARAX) 25 mg tablet Take 1 tablet (25 mg total) by mouth every 8 (eight) hours as needed for anxiety Active prochlorperazi ne (COMPAZINE) 25 mg suppository Insert 1 suppository (25 mg total) into the rectum every 12 (twelve) hours as needed for nausea or vomiting 12 suppository 022 2024 Discontinued Active Problems Problem Noted Date Diagnosed Date History of endometrial ablation 01/05/2025 Assessment & Plan (01/11/2025 9:05 PM ELECTRICAL SYSTEMS ENGINEER): - Hilda endometrial ablation performed on December 16, [address] Patel - Continue routine follow up with OBGYN - Will hopefully see improvement with anemia with reduction in menses Iron deficiency 12/18/2024 Assessment & Plan (01/11/2025 9:05 PM ELECTRICAL SYSTEMS ENGINEER): - Reviewed lab findings consistent with iron deficiency, which is likely contributing to her fatigue and restless leg symptoms, particulary at night. - Start oral iron supplementation (ferrous sulfate 65 mg) with vitamin C to improve absorption - Discussed expected side effects (constipation, nausea, dark stools, metallic taste) and strategies to improve tolerance - Encourage hydration and daily bowel regiment to minimize GI symptoms - Recheck CBC and ferritin in 4 weeks - Colonoscopy 03/11/2025 is still appropriate Orders: ferrous sulfate 325 mg (65 mg of elemental iron) tablet; Take 1 tablet (325 mg total) by mouth daily with breakfast Assessment & Plan (12/28/2024 9:49 PM ELECTRICAL SYSTEMS ENGINEER): - Ablation was completed 12/15/2024 to mitigate severity of bleeding - Discussed causes; possibly menstrual; - She underwent an EGD on 11/25/2024, which was entirely normal (normal esophagus, stomach, duodenum, and negative H. Pylori biopsy). - Recheck CBC and ferritin in 6-8 weeks - Start ferrous sulfate 325 mg every other day - Take with vitamin C for absorption and avoid dairy / antacids within 2 hours of dosing. We discussed possible GI side effects with ferrous sulfate (constipation, nausea, upset stomach, dark stools, metallic taste). These are normal and are very likely to improve within 1-2 weeks - Colonoscopy scheduled for 03/11/2025 Orders: Iron profile w/ IBC; Future Ferritin; Future Hypokalemia 12/18/2024 Assessment & Plan (12/28/2024 9:49 PM ELECTRICAL SYSTEMS ENGINEER): - Recurrent hypokalemia with nausea, vomiting, and constipation. Potassium levels drop to 3 or below. Family history suggests possible genetic component. Differential includes electrolyte imbalances and gastrointestinal issues. - Potassium was 3.7 in the ED on 12/15/2024. Potassium was 4.0 on 12/11 when she did lab work. - Continue potassium supplement Decreased ferritin 12/18/2024 Assessment & Plan (01/11/2025 9:05 PM ELECTRICAL SYSTEMS ENGINEER): - Reviewed lab findings consistent with iron deficiency, which is likely contributing to her fatigue and restless leg symptoms, particulary at night. - Start oral iron supplementation (ferrous sulfate 65 mg) with vitamin C to improve absorption - Discussed expected side effects (constipation, nausea, dark stools, metallic taste) and strategies to improve tolerance - Encourage hydration and daily bowel regiment to minimize GI symptoms - Recheck CBC and ferritin in 4 weeks - Colonoscopy 03/11/2025 is still appropriate Orders: ferrous sulfate 325 mg (65 mg of elemental iron) tablet; Take 1 tablet (325 mg total) by mouth daily with breakfast Assessment & Plan (12/28/2024 9:49 PM ELECTRICAL SYSTEMS ENGINEER): - Ablation was completed 12/15/2024 to mitigate severity of bleeding - Discussed causes; possibly menstrual; - She underwent an EGD on 11/25/2024, which was entirely normal (normal esophagus, stomach, duodenum, and negative H. Pylori biopsy). - Recheck CBC and ferritin in 6-8 weeks - Start ferrous sulfate 325 mg every other day - Take with vitamin C for absorption and avoid dairy / antacids within 2 hours of dosing. We discussed possible GI side effects with ferrous sulfate (constipation, nausea, upset stomach, dark stools, metallic taste). These are normal and are very likely to improve within 1-2 weeks - Colonoscopy scheduled for 03/11/2025 Orders: Iron profile w/ IBC; Future Ferritin; Future Anxiety 12/18/2024 Assessment & Plan (12/28/2024 9:49 PM ELECTRICAL SYSTEMS ENGINEER): - Anxiety disorder untreated since . Previous medications included Klonopin. Discussed serotonin medications. Significant life stressors and childhood trauma contribute to anxiety. - Encourage counseling and provide therapy resources, including [email or web address] and [facility]. - She stopped fluoxetine 20 mg daily the Sunday before her surgery which could have contributed to her symptoms - Continue fluoxetine 20 mg daily. Encouraged her to take this medication consistently to control anxiety symptoms. - Patient has had good results with Promethazine for nausea in the past as well as helping with anxiety so will have her take it on a regular basis for a few weeks and then taper to see if the Prozac can medicinal plant picker dontro Low vitamin D level 12/18/2024 Assessment & Plan (01/11/2025 9:05 PM ELECTRICAL SYSTEMS ENGINEER): - Continue Vitamin D supplementation - Recheck vitamin D levels - Reinforced importance for bone health and mood regulation Assessment & Plan (12/28/2024 9:49 PM ELECTRICAL SYSTEMS ENGINEER): - Encouraged Calcium and Vitamin D and weight bearing exercise for bone health. - Calcium level is normal. Ordered vitamin D Orders: Vitamin D 25 hydroxy; Future Menorrhagia 12/07/2024 Assessment & Plan (12/28/2024 9:49 PM ELECTRICAL SYSTEMS ENGINEER): - Post Uterine Ablation on 12/15/2024 - Follow OBGYN for any heavy bleeding, fever, worsening pain, or concerns Gastritis 12/07/2024 Generalized anxiety disorder 12/07/2024 Assessment & Plan (01/11/2025 9:05 PM ELECTRICAL SYSTEMS ENGINEER): - Reinforced consistent daily use of fluoxetine 20 mg daily, as missed doses can worsen anxiety symptoms and contribute to nausea - She never used promethazine because her nausea has been better. - She has use hydroxyzine in the past and thinks it has helped with anxiety. Reviewed it can also help with sleep. Willing to consider and has supply at home. Stressed sedation is a side effect. BMI 21.0-21.9, adult 11/28/2024 Assessment & Plan (01/11/2025 9:05 PM ELECTRICAL SYSTEMS ENGINEER): Weight/BMI is in healthy range. Continue healthy lifestyle to maintain. Assessment & Plan (12/28/2024 9:49 PM ELECTRICAL SYSTEMS ENGINEER): - Weight/BMI is in healthy range. Continue healthy lifestyle to maintain. Assessment & Plan (12/18/2024 9:36 AM ELECTRICAL SYSTEMS ENGINEER): Weight/BMI is in healthy range. Continue healthy lifestyle to maintain. Assessment & Plan (11/28/2024 10:07 AM CDT): Weight/BMI is in healthy range. Continue healthy lifestyle to maintain. Chronic constipation 11/25/2024 Assessment & Plan (01/11/2025 9:05 PM ELECTRICAL SYSTEMS ENGINEER): - Continue fiber supplement and hydration - Start Miralax daily until stool softening, then PRN - Encouraged increased physical activity Assessment & Plan (12/28/2024 9:48 PM ELECTRICAL SYSTEMS ENGINEER): - Fiber Supplement for constipation. - Encouraged patient to increase hydration, increase physical activity, and Colase OTC for stool softening. - MiraLax PRN if needed Family history of colon cancer in father 025 Assessment & Plan (01/11/2025 9:05 PM ELECTRICAL SYSTEMS ENGINEER): - EGD normal on 11/25/24 - Colonoscopy scheduled for 03/11/2025 Assessment & Plan (12/28/2024 9:49 PM ELECTRICAL SYSTEMS ENGINEER): - She underwent an EGD on 11/25/2024, which was entirely normal (normal esophagus, stomach, duodenum, and negative H. Pylori biopsy). - Colonoscopy scheduled for 03/11/2025 Nausea and vomiting 11/04/2024 Assessment & Plan (01/11/2025 9:05 PM ELECTRICAL SYSTEMS ENGINEER): - Patient reports that symptoms of nausea and vomiting have improved significantly. - No current need for antiemetic use; may continue PRN promethazine if symptoms recur. - Encouraged ongoing hydration and small, regular meals Assessment & Plan (12/28/2024 9:49 PM ELECTRICAL SYSTEMS ENGINEER): - Likely triggered by opioid pain medication post ablation - Remove scopolamine patch 72 hours after it was placed - Promethazine 12.5 mg in the morning and 12.5 mg in the evening. 25 mg at bedtime for a total of 50 mg daily. - Able to break tablet in half and take one in the morning and one in the evening. - Emphasized hydration, bland diet - Return precautions were reviewed (worsening abdominal pain, inability to tolerate PO, fever) Gastroesophageal reflux disease 11/04/2024 Intractable vomiting 02/11/2020 Assessment & Plan (01/11/2025 9:05 PM ELECTRICAL SYSTEMS ENGINEER): - Patient reports that symptoms of nausea and vomiting have improved significantly. - No current need for antiemetic use; may continue PRN promethazine if symptoms recur. - Encouraged ongoing hydration and small, regular meals Assessment & Plan (12/28/2024 9:49 PM ELECTRICAL SYSTEMS ENGINEER): - Intractable cyclic vomiting syndrome, chronic, with multifactorial triggers (GERD, anxiety, cannabis use, post operative medication) - Continue supportive therapy including hydration, PRN Zofran and B6, avoidance of known triggers, and close follow up. No evidence of structural GI disease. - Zofran has not been helping. Promethazine 25 mg to help with nausea and vomiting.(She has supply at home) - Colonoscopy scheduled for 03/11/2025 - Discussed signs and symptoms of severe dehydration. Orders: CBC with auto differential; Future Comprehensive metabolic panel; Future Assessment & Plan (02/11/2020 11:49 AM ELECTRICAL SYSTEMS ENGINEER): Yaa and Bj6. Discussed signs and symptoms of Severe Dehydration. Fiber Supplement for Constipation. Follow up with OB Less than 8 weeks gestation of 020 Assessment & Plan (01/15/2020 4:53 PM ELECTRICAL SYSTEMS ENGINEER): Discussed briefly dos and don'ts of pregnancies. Anticipate normal risk . Recommend Tobacco Cessation. Discontinue Klonopin/Tramadol/Flexeri and take them only PRN. Contact OB-BROADCAST METEOROLOGIST cain. Referral. Encounters Date Type Department Care Team Description 01/27/20 Telephone [facility] Gastroenterology at [address] [place] [address] Renetta Encinas Instructions 01/06/20 11:00 AM ELECTRICAL SYSTEMS ENGINEER Office Visit [facility] [address] [place] [address] Dionne Forde PA Intractable vomiting (Primary Dx); Generalized anxiety disorder; Iron deficiency; Decreased ferritin; Nausea and vomiting, unspecified vomiting type; Chronic constipation; Low vitamin D level; Family history of colon cancer in father; History of endometrial ablation; BMI 21.0-21.9, adult 12/19/19 9:30 AM ELECTRICAL SYSTEMS ENGINEER Office Visit [address] [place] [phone] Dionne Forde PA Intractable vomiting (Primary Dx); Nausea and vomiting, unspecified vomiting type; Decreased ferritin; Iron deficiency; Hypokalemia; Menorrhagia with regular cycle; BMI 21.0-21.9, adult; Anxiety; Family history of colon cancer in father; Chronic constipation; Low vitamin D level 12/16/19 Orders Only [facility] [address] [place] [id number] Scanning, Provider 12/14/19 Results Follow-Up [address] [place] [phone] Dionne Forde PA TSH, T4, free, T3, free, Additional followed-up results: 7 11/29/19 10:00 AM CDT Office Visit [address] [place] [phone] Dionne Forde PA Annual physical exam (Primary Dx); Nausea and vomiting, unspecified vomiting type; Menorrhagia with regular cycle; Anemia, unspecified type; Gastritis without bleeding, unspecified chronicity, unspecified gastritis type; Generalized anxiety disorder; BMI 21.0-21.9, adult 11/27/19 Results Follow-Up [facility] Gastroenterology at [address] [place] [address] Guicho Thomas, Surgical pathology 11/26/19 9:30 AM CDT - 11/26/19 9:51 AM CDT Surgery [facility] Digestive [address] [address] Guicho Thomas, DO ESOPHAGOGASTRODUODENOSCOPY BIOPSY 11/26/19 8:09 AM CDT Anesthesia Event [address] [address] Selvin Toy Dumont, 11/26/19 7:29 AM CDT - 11/26/19 9:10 AM CDT Hospital Encounter [address] [address] Guicho Thomas, Nausea and vomiting, unspecified vomiting type; Gastroesophageal reflux disease, unspecified whether esophagitis present Discharge Disposition: Discharge to home or self care 11/26/19 Telephone [facility] Gastroenterology at [address] [place] [address] Filomena Braxton 11/21/19 Telephone [facility] Gastroenterology at [address] [place] [address] Candace Braxton MA 11/05/19 9:55 AM CDT Lab [address] Abdominal pain; Gastroesophageal reflux disease, unspecified whether esophagitis present; Nausea and vomiting, unspecified vomiting type; Weight loss 11/05/19 9:00 AM CDT Office Visit [facility] Gastroenterology at [address] [place] [address] Guicho Thomas, Abdominal pain (Primary Dx); Gastroesophageal reflux disease, unspecified whether esophagitis present; Nausea and vomiting, unspecified vomiting type; Weight loss; Family history of colon cancer; Chronic idiopathic constipation 11/05/19 Telephone [facility] Gastroenterology at [address] [place] [address] August Walker MA 11/05/19 Results Follow-Up [facility] Gastroenterology at [address] [place] [address] Guicho Thomas, DO Folate, Iron profile w/ IBC, Vitamin B12, Additional followed-up results: 13 11/05/19 25 Orders Only [facility] Gastroenterology at [address] [place] [address] Guicho Thomas, DO Hypokalemia (Primary Dx) 11/05/19 25 Telephone [facility] Gastroenterology at [address] [place] [address] Deya Cleary LPN from Last 3 Months Immunizations Immunization Administration Dates Next Due Influenza, Unspecified 02/06/2024(Deferred: Adriana ent Refused) Surgical History Surgery Date Site/Laterality Comments TYMPANOSTOMY TUBE PLACEMENT ESOPHAGOGASTRODUODENOSCOPY COLONOSCOPY TONSILLECTOMY TUBAL LIGATION 08/06/2023 - 09/05/2023 ESOPHAGOGASTRODUODENOSCOPY 11/25/2024 ABLATION uterine ablation Medical History Medical History Date Comments SONIDO [...] on file Legal Sex Female 7:26 AM ELECTRICAL SYSTEMS ENGINEER Gender Identity Not on file Sexual Orientation Not on file Last Filed Vital Signs Vital Sign Reading Time Taken Comments Blood Pressure 110/70 01/05/2025 10:55 AM ELECTRICAL SYSTEMS ENGINEER Pulse 74 01/05/2025 10:55 AM ELECTRICAL SYSTEMS ENGINEER Temperature 36.7 C (98 F) 01/05/2025 10:55 AM ELECTRICAL SYSTEMS ENGINEER Respiratory Rate 17 11/25/2024 8:50 AM CDT Oxygen Saturation 97% 01/05/2025 10: 55 AM ELECTRICAL SYSTEMS ENGINEER Inhaled Oxygen Concentration - - Weight 54.8 kg (120 lb 12.8 oz) 025 10:55 AM ELECTRICAL SYSTEMS ENGINEER Height 157.5 cm (5' 2) 01/05/2025 10:5 5 AM ELECTRICAL SYSTEMS ENGINEER Body Mass Index 22.09 01/05/2025 10:55 AM ELECTRICAL SYSTEMS ENGINEER Plan of Treatment Upcoming Encounters Date Type Department Care Team (Late st Contact Info) Description 03/11/2025 12:00 PM ELECTRICAL SYSTEMS ENGINEER Hospital Encounter [address] [address] Guicho Thomas, [address] [place] [address] 03/11/2025 12:00 PM ELECTRICAL SYSTEMS ENGINEER - 03/11/2025 12:30 PM ELECTRICAL SYSTEMS ENGINEER Surgery [address] [address] Guicho Thomas, [address] [place] [address] COLONOSCOPY Scheduled Procedures Name Priority Associated Diagnoses Date/Ti me COLONOSCOPY Chronic constipation Family history of colon cancer in father 03/11/2025 12:00 PM ELECTRICAL SYSTEMS ENGINEER Health Maintenance Due Date Last Done Comments Cervical Cancer Screening 1997 HPV Vaccines (2 - 2-dose series) 04/05/2009 10/07/19 09 Pneumococcal vaccine <65 (1 of 2 - PCV) 2016 Influenza Vaccine (#1) 2024 6, 11/09/2009, 11/15/2007, Additional history exists Regular Well Visit/Exam 18-64 11/28/2025 11/28/2024, 12/08/2019 Depression Screening 01/05/2026 01/05/2025, 12/18/2024, 11/28/2024, Additional history exists DTaP/Tdap/Td Vaccine (8 - Td or Tdap) 09/18/2030 09/18/2020, 09/05/2007, 05/30/2001, Additional history exists Varicella Vaccines Discontinued 02/07/2007, 03/29/1998 Hepatitis B Screening Completed 11/04/2024 , 1997, 1997, Additional history exists Hepatitis C Screening Completed 11/04/2024 Procedures Procedure Name Priority Date/Time Associated Diagnosis Comments SCAN - LABS 12/15/2024 SCAN - RADIOLOGY/IMAGING 12/15/2024 CBC WITH AUTO DIFFERENTIAL Routine 12/11 11:56 AM ELECTRICAL SYSTEMS ENGINEER COMPREHENSIVE METABOLIC PANEL Routine 11:56 AM ELECTRICAL SYSTEMS ENGINEER MAGNESIUM Routine 12/11/2024 11:56 AM ELECTRICAL SYSTEMS ENGINEER FERRITIN Routine 12/11/2024 11:56 AM ELECTRICAL SYSTEMS ENGINEER Anemia, unspecified type IRON PROFILE W/ IBC Routine 12/11/2024 11:56 AM ELECTRICAL SYSTEMS ENGINEER Anemia, unspecified type CALCIUM, IONIZED Routine 12/11/2024 11:56 AM ELECTRICAL SYSTEMS ENGINEER Nausea and vomiting, unspecified vomiting type PTH Routine 12/11/2024 11:56 AM ELECTRICAL SYSTEMS ENGINEER Nausea and vomiting, unspecified vomiting type T3, FREE Routine 12/11/2024 11:56 AM ELECTRICAL SYSTEMS ENGINEER Nausea and vomiting, unspecified vomiting type T4, FREE Routine 12/11/2024 11:56 AM ELECTRICAL SYSTEMS ENGINEER Nausea and vomiting, unspecified vomiting type TSH Routine 12/11/2024 11:56 AM ELECTRICAL SYSTEMS ENGINEER Nausea and vomiting, unspecified vomiting type SURGICAL [...] loss from Last 3 Months Results * SCAN - RADIOLOGY/IMAGING (12/15/2024) Anatomical Region Laterality Modality Other us Provider Scanning Final Result * SCAN - LABS (12/15/2024) us Provider Scanning Edited Result - Final * Calcium, ionized (12/11/2024 11:56 AM ELECTRICAL SYSTEMS ENGINEER) Calcium, Ionized 5.1 4.7 - 5.5 mg/dL [facility] Blood 12/11/2024 11:5 6 AM ELECTRICAL SYSTEMS ENGINEER 12/11/2024 11:56 AM ELECTRICAL SYSTEMS ENGINEER Narrative [facility] - 12/12/2024 9:47 AM ELECTRICAL SYSTEMS ENGINEER FASTING:NO FASTING: NO Dionne العراقي LAB BLOOD ORDERABLES Final Result [facility] [address] [place] [address] * Iron profile w/ IBC (12/11/2024 11:56 AM ELECTRICAL SYSTEMS ENGINEER) Iron 82 40 - 190 mcg/dL [facility] TIBC 393 250 - 450 mcg/dL (calc) [facility] Iron saturation 21 16 - 45 % (calc) [facility] Blood 12/11/2024 11:5 6 AM ELECTRICAL SYSTEMS ENGINEER 12/11/2024 11:56 AM ELECTRICAL SYSTEMS ENGINEER Narrative [facility] - 12/12/2024 9:47 AM ELECTRICAL SYSTEMS ENGINEER FASTING:NO FASTING: NO Dionne العراقي LAB BLOOD ORDERABLES Final Result [facility] [address] [address] [place] [address] * (ABNORMAL) CBC with auto differential (12/11/2024 11:56 AM ELECTRICAL SYSTEMS ENGINEER) WBC 6.2 3.8 - 10.8 Thousand/u L [...] [facility] 12/11/2024 11:5 6 AM ELECTRICAL SYSTEMS ENGINEER 12/11/2024 11:56 AM ELECTRICAL SYSTEMS ENGINEER Narrative [facility] - 12/12/2024 9:47 AM ELECTRICAL SYSTEMS ENGINEER FASTING:NO FASTING: NO Dionne العراقي LAB BLOOD ORDERABLES Final Result Performing Organization Address [facility] Co de Phone Number [facility] [address] [place] [address] * T3, free (12/11/2024 11:56 AM ELECTRICAL SYSTEMS ENGINEER) Free T3 3.0 2.3 - 4.2 pg/mL [facility] Blood 12/11/2024 11:5 6 AM ELECTRICAL SYSTEMS ENGINEER 12/11/2024 11:56 AM ELECTRICAL SYSTEMS ENGINEER Narrative [facility] - 12/12/2024 9:47 AM ELECTRICAL SYSTEMS ENGINEER FASTING:NO FASTING: NO Dionne العراقي LAB BLOOD ORDERABLES Final Result Performing Organization Address [facility] de Phone Number [facility] [address] [place] [address] * TSH (12/11/2024 11:56 AM ELECTRICAL SYSTEMS ENGINEER) TSH 0.79 mIU/L [facility] Comment: Reference Range > or = 20 Years 0.40-4.50 Ranges First trimester 0.26-2.66 Second trimester 0.55-2.73 Third trimester 0.43-2.91 Blood 12/11/2024 11:5 6 AM ELECTRICAL SYSTEMS ENGINEER 12/11/2024 11:56 AM ELECTRICAL SYSTEMS ENGINEER Narrative [facility] - 12/12/2024 9:47 AM ELECTRICAL SYSTEMS ENGINEER FASTING:NO FASTING: NO Dionne العراقي LAB BLOOD ORDERABLES Final Result Performing Organization Address [facility] Co de Phone Number [facility] [address] [place] [address] * T4, free (12/11/2024 11:56 AM ELECTRICAL SYSTEMS ENGINEER) Free T4 1.0 0.8 - 1.8 ng/dL [facility] Blood 12/11/2024 11:5 6 AM ELECTRICAL SYSTEMS ENGINEER 12/11/2024 11:56 AM ELECTRICAL SYSTEMS ENGINEER Narrative [facility] - 12/12/2024 9:47 AM ELECTRICAL SYSTEMS ENGINEER FASTING:NO FASTING: NO Dionne العراقي LAB BLOOD ORDERABLES Final Result Performing Organization Address City/[facility]/ZIP Co de Phone Number [facility] [address] [place] [address] * PTH (12/11/2024 11:56 AM ELECTRICAL SYSTEMS ENGINEER) Parathyroid hormone, intact 34 16 - 77 pg/mL [facility] Comment: Interpretive Guide Intact PTH Calcium ------- Normal Parathyroid Normal Normal Hypoparathyroidism Low or Low Normal Low Hyperparathyroidism Primary Normal or High High Secondary High Normal or Low Tertiary High High Non-Parathyroid Hypercalcemia Low or Low Normal High Blood 12/11/2024 11:5 6 AM ELECTRICAL SYSTEMS ENGINEER 12/11/2024 11:56 AM ELECTRICAL SYSTEMS ENGINEER Narrative [facility] - 12/12/2024 9:47 AM ELECTRICAL SYSTEMS ENGINEER FASTING:NO FASTING: NO Dionne العراقي LAB BLOOD ORDERABLES Final Result Performing Organization Address City/State/[facility] Co de Phone Number [facility] [address] [place] [address] * Magnesium (12/11/2024 11:56 AM ELECTRICAL SYSTEMS ENGINEER) Pathologist [facility] Magnesium 2.2 1.5 - 2.5 mg/dL [facility] 12/11/2024 11:5 6 AM ELECTRICAL SYSTEMS ENGINEER 12/11/2024 11:56 AM ELECTRICAL SYSTEMS ENGINEER Narrative [facility] - 12/12/2024 9:47 AM ELECTRICAL SYSTEMS ENGINEER FASTING:NO FASTING: NO Dionne العراقي LAB BLOOD ORDERABLES Final Result [facility] [address] [place] [address] * (ABNORMAL) Ferritin (12/11/2024 11:56 AM ELECTRICAL SYSTEMS ENGINEER) Ferritin 8(L) 16 - 154 ng/mL [facility] Blood 12/11/2024 11:5 6 AM ELECTRICAL SYSTEMS ENGINEER 12/11/2024 11:56 AM ELECTRICAL SYSTEMS ENGINEER Narrative [facility] - 12/12/2024 9:47 AM ELECTRICAL SYSTEMS ENGINEER FASTING:NO FASTING: NO Dionne العراقي LAB BLOOD ORDERABLES Final Result Performing Organization Address [place] [facility] [facility]/ZIP Co de Phone Number [facility] [address] [place] [address] * Comprehensive metabolic panel (12/11/2024 11:56 AM ELECTRICAL SYSTEMS ENGINEER) Glucose 76 65 - 139 mg/dL [facility]a [place] Comment: Non-fasting reference interval BUN 10 7 - 25 mg/dL [facility] [place] Creatinine 0.61 0.50 - 0.96 mg/dL [facility] [place] eGFR 126 > OR = 60 mL/min/1.7 3m2 [facility] [place] BUN/creat ratio SEE NOTE: 6 (calc) [facility] [place] Comment: Not Reported: BUN and Creatinine are within reference range. Sodium 138 135 - 146 mmol/L [facility] [place] Potassium, pl 4.0 3.5 - 5.3 mmol/L [facility] [place] Chloride 103 98 - 110 mmol/L [facility] [place] CO2 30 20 - 32 mmol/L [facility] [place] Calcium 9.4 8.6 - 10.2 mg/dL [facility] [place] Protein, sr 6.7 6.1 - 8.1 g/dL [facility] [place] Albumin 4.7 3.6 - 5.1 g/dL [facility] [place] GLOBULIN 2.0 1.9 - 3.7 [...] [facility] [place] 12/11/2024 11:5 6 AM ELECTRICAL SYSTEMS ENGINEER 12/11/2024 11:56 AM ELECTRICAL SYSTEMS ENGINEER Narrative [facility] - 12/12/2024 9:47 AM ELECTRICAL SYSTEMS ENGINEER FASTING:NO FASTING: NO us Dionne العراقي LAB BLOOD ORDERABLES Final Result [facility] [place] [address] [place] [address] * Surgical pathology (11/25/2024 12:08 PM CDT) Tissue (Gastric/Stomach biopsy) 11/25/2024 8:19 AM CDT Comment:Gastric biopsies - S meeran for H. Pylori Narrative [facility] - 11/26/2024 9:33 AM CDT EPIC results best viewed via link to PDF [facility] Department of Pathology [address] [place] [address] Note to Patients: This report may contain [...] Final Report Patient Name: GIANNA CUEVAS Address: [facility] [address] Gender: F : 1995 (Age: 29) Service: Gastro Location[facility] #: [id number] [facility] Taken: 11/25/2024 Received: 11/25/2024 Accessioned: 11/25/2024 [...] determined by the Surgical Pathology Department at [facility] as part of an ongoing manufacturing quality engineer program and in compliance with federally mandated [...] characteristics determined by the Surgical Pathology Department [facility]. It has not been cleared or approved by the U. S. Food and Drug Administration. Note for decalcified specimens: This assay has not been validated on decalcified tissues. Results should be interpreted with caution given the possibility of false negativity on decalcified specimens us Guicho Thomas DO LAB PATHOLOGY ORDERABLES Final Result PATHOLOGY [facility] [address]) [address] [place] [address] * EGD (11/25/2024 7:31 AM CDT) Anatomical Region Laterality Modality Other Narrative Procedure Note Guicho Thomas DO - 11/25/2024 7:[address] [facility] Patient Name: Gianna Cuevas Procedure Date: 11/25/2024 7:31 AM Date of : 1995 Admit Type: Outpatient Age: 29 Gender: Female Attending MD: Guicho Thomas D.O., Room: [facility] 2 Note Status: Finalized Patient [...] passed under direct vision. The Endoscope [id number] was introduced through the mouth, and advanced [...] 7:31 AM Procedure Code(s): --- Professional --- 69229, Esophagogastroduodenoscopy, flexible, transoral; with biopsy, single or multiple --- Technical --- 81179, Esophagogastroduodenoscopy, flexible, transoral; with biopsy, single or multiple Diagnosis Code(s): --- Professional --- R11.2, Nausea with vomiting, unspecified --- Technical --- R11.2, Nausea with vomiting, unspecified CPT copyright 2022 [employer]. All rights reserved. The codes documented in this report are preliminary and upon insurance sales assistant reviewmay be revised to meet current compliance requirements. Recognized by the [employer] for promoting quality in endoscopy us Guicho Thomas DO ENDOSCOPY PROCEDURES Final Res ult * SCAN - LABS (11/10/2024) us Provider Scanning Final Result * eGFR (11/04/2024 [...] LAB BLOOD ORDERABLES Final Res ult [facility] 1 [facility] Department of Laboratories [place], [place] [id number] * Differential, auto (11/04/2024 10:06 AM CDT) [...] Res ult [facility] ([place]) 1 [facility] [place] [address] * Thyroid Function Levy (11/04/2024 10:06 AM CDT) TSH 0.45 0.30 - 4.20 mcIUnit/mL [facility] ([place]) Blood 11/04/2024 10:0 6 AM CDT 11/04/2024 10:50 AM CDT Guicho Thomas LAB BLOOD ORDERABLES Final Res ult Performing Organization Address [facility] Co de Phone Number [facility] ([place] 1 [facility] [place] [place] [address] * (ABNORMAL) Iron profile w/ IBC (11/04/2024 10:06 AM CDT) Pathologist [facility] Iron 48 35 - 145 mcg/dL [facility] TIBC 329 250 - 400 mcg/dL [facility] Transferrin saturation 15(L) 20 - 50 % [facility] Blood 11/04/2024 10:0 6 AM CDT 11/04/2024 10:50 AM CDT Guicho Thomas DO LAB BLOOD ORDERABLES Final Res ult Performing Organization Address [facility] de Phone Number [facility] ([place] 1 [facility] [employer] [place] [address] * (ABNORMAL) CBC with auto differential (11/04/2024 10:06 AM CDT) Pathologist [facility] WBC 8.52 3.80 - 9.90 K/cumm Hgb [...] ([place]) MCHC 35.6 32.3 - 35.7 g/dL [facility] RDW CV 12.6 11.1 - 14.9 % [facility] RDW SD 39.2 35.7 - 48.1 fL [facility] NRBC abs 0.00 0.00 - 0.01 K/cumm [facility] Blood 11/04/2024 10:0 6 AM CDT 11/04/2024 10:50 AM CDT Guicho Thomas DO LAB BLOOD ORDERABLES Final Res ult Performing Organization Address [facility]/ZIP Co de Phone Number [facility] 1 [facility] [place] [address] * Copper, serum (11/04/2024 10:06 AM CDT) Copper 99 77 - 206 mcg/dL [facility] Comment: ADDITIONAL INFORMATION This test was developed and its performance characteristics determined by [facility] in a manner consistent with CLIA requirements. This test has not been cleared or approved by the U.S. Food and Drug Administration. Test Performed by: [facility] [place] [id number] Logistics Planning Engineer: Sondra Miranda Ph.D.; CLIA# [id number] Blood 11/04/2024 10:0 6 AM CDT 11/04/2024 10:50 AM CDT Guicho Thomas DO LAB BLOOD ORDERABLES Final Res ult Performing Organization Address [facility]/ZIP Co de Phone Number [facility] 1 [facility] [employer] [place] [address] [facility] * (ABNORMAL) Hepatitis A antibody, total Blood (11/04/2024 10:06 AM CDT) Hep A total Reactive( A) Nonreactive Comment:Testing performed by : [facility], [address] [place]., [address] Blood 11/04/2024 10:0 6 AM CDT 11/04/2024 3:25 PM CDT Guicho Thomas DO LAB MICROBIOLOGY - GENERAL ORD ERABLES Final Result [facility] ([place]) 1 [facility] [place] [address] * Hepatitis panel, acute Blood (11/04/2024 10:06 AM CDT) Hep A IgM Nonreactive Nonreactive Comment: Interpretive Data: If Hep A IgM Ab is reported as Equivocal, a new sample should be drawn in two weeks for testing. Current interpretive data was last revised on 19. Testing performed by: [facility], [address] [place] [address]., [id number] Hep B core IgM Nonreactive Nonreactive C [facility] ([place]) Comment: Interpretive Data If HepB Core IgM Ab is reported as Equivocal, a new sample should be drawn in two weeks for testing. Current interpretive data was last revised on 19. Testing performed by: [facility], [address] [place] [address]., [id number] Hep C Ab Nonreactive Nonreactive [facility] Comment: Interpretive Data Nonreactive: Antibodies to [...] last revised on 2019. Testing performed by: [facility], [address] [place] [address]., [id number] HepBsAg Nonreactive Nonreactive [facility] Comment:Testing performed by : [facility], [address] [place] [address]., [id number] Blood 11/04/2024 10:0 6 AM CDT 11/04/2024 4:58 PM CDT Guicho Thomas DO LAB MICROBIOLOGY - GENERAL ORD ERABLES Final Result Performing Organization Address City/[facility]/ZIP Co de Phone Number [facility] 1 [facility] [place] [address] * Hepatitis B surface antibody (immune status) [...] last revised on 19. Testing performed by: [facility], [address] [place] [address], [place]., [address] Blood 11/04/2024 10:0 6 AM CDT 11/04/2024 4:58 PM CDT Guicho Thomas DO LAB MICROBIOLOGY - GENERAL ORD ERABLES Final Result Performing Organization Address City/[facility]/ZIP Co de Phone Number [facility] 1 [facility] [place] [place] [address] * Protime-INR (11/04/2024 10:06 AM CDT) PT 13.1 10.2 - 13.5 sec [facility] ([place]) INR 1.16 0.90 - 1.20 [facility] ([place]) Comment: Interpretive data Oral anticoagulant therapeutic ranges: Venous thromboembolism prophylaxis or treatment: 2.0-3.0 CARDIOLOGY Standard range: 2.0-3.0 High-intensity range: 2.5-3.5 Refer to indication-specific guidelines for appropriate target ranges for prosthetic heart valve replacement. Current interpretive data was last revised on 2019. Blood 11/04/2024 10:0 6 AM CDT 11/04/2024 10:50 AM CDT Guicho Thomas DO LAB BLOOD ORDERABLES Final Res ult [facility] 1 [facility] [place] [address] * CRP (acute phase) (11/04/2024 10:06 AM CDT) CRP <3.0 <=10.0 mg/L [facility]) Blood 11/04/2024 10:0 6 AM CDT 11/04/2024 10:50 AM CDT Guicho Thomas DO LAB BLOOD ORDERABLES Final Res ult Performing Organization Address [facility] Co de Phone Number [facility] 1 [facility] [place] [address] * TSH (11/04/2024 10:06 AM CDT) Thyroid Stimulating Hormone 0.45 0.30 - 4.20 mcIUnit/mL [facility]) Blood 11/04/2024 10:0 6 AM CDT 11/04/2024 10:50 AM CDT Guicho Thomas DO LAB BLOOD ORDERABLES Final Res ult Performing Organization Address City/[facility]/ZIP Co de Phone Number [facility] ([place] 1 [facility] [place] [address] * Phosphorus (11/04/2024 10:06 AM CDT) Phosphorus, pl 3.1 2.3 - 4.5 mg/dL [facility]) Blood 11/04/2024 10:0 6 AM CDT 11/04/2024 10:50 AM CDT Guicho Thomas DO LAB BLOOD ORDERABLES Final Res ult [facility] ([place]) 1 [facility] [place] [address] * Magnesium (11/04/2024 10:06 AM CDT) Magnesium 2.1 1.4 - 2.5 mg/dL [facility]) Blood 11/04/2024 10:0 6 AM CDT 11/04/2024 10:50 AM CDT Guicho Thomas DO LAB BLOOD ORDERABLES Final Res ult Performing Organization Address City/[facility]/ZIP Co de Phone Number [facility] ([place]) 1 [facility] [place] [address] * Folate (11/04/2024 10:06 AM CDT) Folic acid 16.6 >=5.0 ng/mL [facility]) Blood 11/04/2024 10:0 6 AM CDT 11/04/2024 10:50 AM CDT Guicho Thomas DO LAB BLOOD ORDERABLES Final Res ult [facility] ([place]) 1 [facility] [employer] [place] [address] * Ferritin (11/04/2024 10:06 AM CDT) Ferritin 74 13 - 150 ng/mL [facility]) Blood 11/04/2024 10:0 6 AM CDT 11/04/2024 10:50 AM CDT Guicho Thomas DO LAB BLOOD ORDERABLES Final Res ult [facility] ([place]) 1 [facility] [place] [address] * (ABNORMAL) Vitamin B12 (11/04/2024 10:06 AM CDT) Vitamin B12 1,461(H) 230 - 1,250 pg/mL [facility]) Blood 11/04/2024 10:0 6 AM CDT 11/04/2024 10:50 AM CDT Guicho Thomas DO LAB BLOOD ORDERABLES Final Res ult Performing Organization Address [facility] de Phone Number [facility] ([place]) 1 [facility] [place] [address] * (ABNORMAL) Hepatic function panel (11/04/2024 10:06 [...] ORDERABLES Final Res ult Performing Organization Address City/[facility]/ZIP Co de Phone Number [facility] ([place]) 1 [facility] [place] [address] * (ABNORMAL) Lipid panel (11/04/2024 10:06 AM [...] last revised on 2023. Testing performed by: [place], [address] Non-HDL Cholesterol 95 mg/dL [facility] ([place]) [...] last revised on 2017. Testing performed by: [place], [address] Chol/HDL ratio 4 [facility] ([place]) Comment:Testing performed by : [place], [address] Blood 11/04/2024 10:0 6 AM CDT 11/04/2024 10:50 AM CDT Guicho Thomas DO LAB BLOOD ORDERABLES Final Res ult [facility] ([place]) 1 [facility] [place] [address] * (ABNORMAL) Basic metabolic panel (11/04/2024 10:06 AM CDT) Sodium 135 135 - 145 mmol/L [facility] ([place]) Potassium, pl 3.0(C) 3.3 - 4.9 mmol/L [facility] ([place]) Comment:Critical Result call ed by [email or web address] at 2024-11-04 12:43:32. Result Read Back by [...] Res ult [facility] ([place]) 1 [facility] [place] [address] from Last 3 Months Insurance [facility] Advance Directives For more information, please contact: [phone] * Full Code (Latest Code Status on File) Date Activated Date Inactivated Comments 11/25/2024 7:36 AM 11/25/2024 1:21 PM * Full Code Date Activated Date Inactivated Comments 11/25/2024 7:36 AM 11/25/2024 7:36 AM Care Teams Pumper Head Relationship Specialty Start Date End Date Dionne Forde PA [address] [facility] [address] [place] [address] PCP - General Family Medicine 11/24/24
[2025-01-28] MEDS: LORazepam INJ (*CRX) 2 MG/ML VIAL 1 MG IV PUSH (12:30)
--- NOTE | 2025-01-28 12:36 | PC.NURSE ---
Pt reports still nauseous, unable to take potassium pills at this time. EDP made aware.
[2025-01-28 12:44] LABS: Add Urine Microscopic? YES; Appearance Urine Cloudy (Clear); Glucose Urine UA Negative (Negative); Leukocyte Esterase Ur Negative LEU/UL (Negative); Nitrate Urine Negative (Negative); Non Pathogenic Casts 0-2; Specific Grav Ur > 1.045 (1.001-1.035)
--- NOTE | 2025-01-28 15:22 | PC.NURSE ---
Pt states still very nauseous, unable to keep anything down. Failed PO challenge. EDP made aware.
[2025-01-28] MEDS: SODIUM CHLORIDE 0.9% IV 1,000 ML 125 ML IV CONT (16:33)
[2025-01-28] MEDS: SCOPOLAMINE 1 MG PATCH 1 PATCH TRANSDERM (16:33)
--- NOTE | 2025-01-28 16:55 | WPCEDHO ---
ED Hand Off Checklist All vitals saved:yes IV Site documented: yes All med administrations documented:yes Triage Note Triage Note Pt to ED via [facility] 01/28/25 07:54 with c/o N/V since Sunday. Pt denies any known sick exposure but states PMH of GI issues. Pt arrives to ED A/oX4, and inducing vomiting with finger in throat. Pt states too promethazine yesterday for nausea . Allergies haloperidol (From Haldol) Adverse Reaction (Intermediate, Verified 01/28/25 07:53) Anxiety metoclopramide Adverse Reaction (Intermediate, Verified 01/28/25 07:53) Anxiety MAKES ME FREAK OUT prochlorperazine (From Compazine) Adverse Reaction (Intermediate, Verified 01/28/25 07:53) Anxiety Family History (Last Reviewed 01/28/25 @ 11:09 by Cristy Mejia PA-C) Father Alive and well Colon cancer Mother Alive and well Sibling Brain tumor Active Medications including assessments/comments Potassium Chloride (Kcl 20 Meq/Sw 100 Ml) 100 mls @ 50 mls/hr IVPB ONCE STA Stop: 01/28/25 17:25 Last Admin: 01/28/25 16:35 Dose: 50 mls/hr Documented By: MLI Co-signed By: ISABELA Infusion/Titration Document 01/28/25 16:35 MLI (Rec: 01/28/25 16:35 MLI [id number]) Co-signed By Albert Lam RN Intake IV Site Peripheral Access Left Antecubital Container Volume 100 Waste Amount 0 Dosing Infusion Rate 50 Cumulative Dose Not Applicable Increase/Decrease Started Elapsed Time Elapsed Time ( 0m minutes) Potassium Chloride Infusion Document 01/28/25 16:35 MLI (Rec: 01/28/25 16:35 MLI [id number]) Co-signed By Albert Lam RN Infusion Action Potassium Chloride Initiated Infusion Action Sodium Chloride (Normal Saline Iv) 1,000 mls @ 125 mls/hr IV CONT .Q8H PRICILLA Last Admin: 01/28/25 16:33 Dose: 125 mls/hr Documented By: MLI Infusion/Titration Document 01/28/25 16:33 MLI (Rec: 01/28/25 16:33 MLI [id number]) Intake IV Site Peripheral Access Left Antecubital Container Volume 1,000 Waste Amount 0 Dosing Infusion Rate 125 Cumulative Dose Not Applicable Increase/Decrease Started Elapsed Time Elapsed Time ( 0m minutes) Administered/Completed Medications Discontinued Medications Diphenhydramine HCl (Diphenhydramine Hcl Inj 50 Mg/Ml Vial) 25 mg IV PUSH ONCE STA Stop: 01/28/25 11:03 Last Admin: 01/28/25 11:08 Dose: 25 mg Documented By: MLJonatan Diphenhydramine HCl (Diphenhydramine Hcl Inj 50 Mg/Ml Vial) 25 mg IV PUSH ONCE STA Stop: 01/28/25 13:52 Last Admin: 01/28/25 14:26 Dose: 25 mg Documented By: SUNNY Famotidine (Famotidine 20 Mg/2 Ml Vial) 20 mg IV PUSH ONCE STA Stop: 01/28/25 10:26 Last Admin: 01/28/25 10:32 Dose: 20 mg Documented By: SUNNY Sodium Chloride (Normal Saline Iv) 1,000 mls @ 999 mls/hr IV CONT .Q1H1M STA Stop: 01/28/25 11:15 Last Infusion: 01/28/25 11:15 Dose: Infused Documented By: Admin: 01/28/25 10:28 Dose: 999 mls/hr Documented By: SUNNY Potassium Chloride (Kcl 20 Meq/Sw 100 Ml) 100 mls @ 50 mls/hr IVPB ONCE STA Stop: 01/28/25 12:54 Last Infusion: 01/28/25 13:25 Dose: Infused Documented By: MLJonatan Admin: 01/28/25 11:09 Dose: 50 mls/hr Documented By: SUNNY Co-signed By: SEAN Sodium Chloride (Normal Saline Iv) 1,000 mls @ 999 mls/hr IV CONT .Q1H1M STA Stop: 01/28/25 11:55 Last Infusion: 01/28/25 13:25 Dose: Infused Documented By: Admin: 01/28/25 11:01 Dose: 999 mls/hr Documented By: SUNNY Lorazepam (Lorazepam Inj (*Crx) 2 Mg/Ml Vial) 1 mg IV PUSH ONCE ONE Stop: 01/28/25 11:45 Last Admin: 01/28/25 12:30 Dose: 1 mg Documented By: SUNNY Ondansetron HCl (Ondansetron Inj 4 Mg/2 Ml Vial) 4 mg IV PUSH ONCE STA Stop: 01/28/25 10:16 Last Admin: 01/28/25 10:28 Dose: 4 mg Documented By: SUNNY Potassium Chloride (Potassium Chloride 20 Meq Er Tablet) 40 meq PO ONCE STA Stop: 01/28/25 12:20 Last Admin: 01/28/25 15:22 Dose: Not Given Documented By: SUNNY Non-Admin Reason: Patient Refuses Scopolamine (Scopolamine 1 Mg Patch) 1 patch TRANSDERM ONCE ONE Stop: 01/28/25 15:27 Last Admin: 01/28/25 16:33 Dose: 1 patch Documented By: SUNNY Notes 01/28/25 15:22 Nurse Note by Brittany Haynes Pt states still very nauseous, unable to keep anything down. Failed PO challenge. EDP made aware. Initialized on 01/28/25 15:22 - END OF NOTE 01/28/25 12:36 Nurse Note by Brittany Haynes Pt reports still nauseous, unable to take potassium pills at this time. EDP made aware. Initialized on 01/28/25 12:36 - END OF NOTE 01/28/25 10:44 Nurse Note by Brittany Haynes Pt states unable to give urine sample at this time. States she will try once she has some IVF in. Initialized on 01/28/25 10:44 - END OF NOTE Interventions/Assessments IV / Saline Lock, Insert Start: 01/28/25 10:15 Freq: ONCE Status: Active Protocol: Document 01/28/25 10:23 MLI (Rec: 01/28/25 10:24 MLI [id number]) IV Assessment Peripheral Access Left Antecubital IV Catheter Access Initiated IV Insertion Date 01/28/25 IV Insertion Time 10:24 Catheter Gauge 18 IV Insertion 1 Attempts Ultrasound Used for No Placement IV Site Assessment WNL IV Care and WNL Maintenance PA: Gastrointestinal Assessment Start: 01/28/25 07:41 Freq: Status: Active Protocol: Document 01/28/25 10:24 MLI (Rec: 01/28/25 10:24 MLI [id number]) GI Assessment Gastrointestinal Constipation,Nausea,Vomiting Symptoms Description Flat,Soft Pattern Constipated Last Vital Signs Temperature 98.1 F 01/28/25 16:55 Pulse Rate 86 01/28/25 16:55 Respiratory Rate 17 01/28/25 16:55 Pulse Oximetry 100 01/28/25 16:55 Blood Pressure 163/105 H 01/28/25 15:21 Blood Pressure Mean 124 01/28/25 15:21 Blood Pressure Position Sitting 01/28/25 09:53 Oxygen Delivery Room Air 01/28/25 07:54 Weight 54 kg 01/28/25 10:24 Last Result - Abnormals Only WBC 17.0 K/mm3 (4.5-10.0) H 01/28/25 10:25 RBC 5.44 M/mm3 (4.2-5.4) H 01/28/25 10:25 Hgb 16.8 g/dL (12.0-15.0) H D 01/28/25 10:25 Hct 49.0 % (37.0-47.0) H 01/28/25 10:25 Plt Count 389 k/mm3 (150-375) H D 01/28/25 10:25 MPV 11.9 fl (7.4-10.4) H 01/28/25 10:25 Neut % (Auto) 80.8 % (45.5-73.1) H 01/28/25 10:25 Lymph % (Auto) 11.5 % (18.3-44.2) L 01/28/25 10:25 [place] # (Auto) 1.2 K/mm3 (0.1-0.6) H 01/28/25 10:25 Abs Immat Gran (auto) 0.07 K/mm3 (0.00-0.031) H 01/28/25 10:25 Absolute Neuts (auto) 13.8 K/mm3 (1.3-6.7) H 01/28/25 10:25 Sodium 136 mmol/L (137-145) L 01/28/25 10:25 Potassium 2.9 mmol/L (3.4-5.0) L 01/28/25 10:25 Chloride 94 mmol/L (98-107) L 01/28/25 10:25 Anion Gap 17 mmol/L (4-12) H 01/28/25 10:25 BUN 22 mg/dL (7-17) H 01/28/25 10:25 Glucose 121 mg/dL (65-110) H 01/28/25 10:25 Total Protein 10.2 g/dL (6.3-8.2) H 01/28/25 10:25 Albumin 5.8 g/dL (3.5-5.1) H 01/28/25 10:25 Urine Appearance Cloudy (Clear) H 01/28/25 11:42 Ur Specific [place] > 1.045 (1.001-1.035) H 01/28/25 11:42 Urine Protein 2+ mg/dL (Negative) H 01/28/25 11:42 Urine Ketones 3+ mg/dL (Negative) H 01/28/25 11:42 Urine RBC 3-5 /hpf (0-2) H 01/28/25 11:42 Urine WBC 11-20 /hpf (0-3) H 01/28/25 11:42 Urine Bacteria 1+ /hpf H 01/28/25 11:42 Most Recent Suicide Severity Rating Suicide Severity Rating NO RISK INDICATED 01/28/25 07:54
--- NOTE | 2025-01-28 17:59 | PM.IMHP2 ---
H&P: HPI History of Present Illness Date/Time: 01/28/25 17:59 Chief Complaint: Nausea and vomiting Narrative: 29 years old female was admitted through the emergency room with complaint of having nausea and vomiting over last 2 days. In the ER patient was found to be dehydrated and has low potassium. Patient was given IV fluid and transferred to floor for further evaluation treatment. At present time patient is lying comfortably in the bed. Patient is some nausea. No vomiting. No shortness of breath or chest pain. Review of Systems Review of Systems: All systems reviewed & are unremarkable except as noted in HPI and below (the history and physical examination.) [facility] Past Medical History Medical History (normal spontaneous vaginal delivery) 2020-severe hyperemesis, preeclampsia 2023 Anxiety Asthma childhood only Surgical History Surgical History History of bilateral tubal ligation In 2023 bilateral salpingectomies History of tympanostomy Family History Family History Father Alive and well Colon cancer Mother Alive and well Sibling Brain tumor Social History Social History Smoking packs per day: 0.5 Smoking cigarettes per day: 10.0 Years smoked: 12 Smoking pack-years: 6.00 Smoking status: Current every day smoker Tobacco type: e-cigarettes/vaping Second hand tobacco smoke exposure: No Smoking end date: 01/06/20 Additional smoking assessment comments: HAS BEEN SMOKING PUFF BAR SINCE NOVEMBER 2019 Alcohol intake: never Alcohol use details: 1/MONTH Substance use: current Substance use type: marijuana Other substance usage details: vape Last use: 01/27/2025 Lack of Transportation: No Lack of Food: Never True Current Housing: I Have Housing Concerned About Future Housing: No Difficulty Paying Gas/Electric Bills: No Difficulty Paying for Meds: No Currently Unemployed: YES Education: High School Diploma/GED Difficulty w/ Childcare or Family Care: No Living arrangements: with family Gender identity (if verbalized by the patient): Female Spiritual care concerns: No Meds Home Medications and Allergies Home Medications ?Medication ?Instructions ?Recorded ?Confirmed ?Type Lactobacillus 40-Bifidobact 1 cap PO DAILY 12/03/24 01/28/25 History 3-S.thermophilus 100 billion cell capsule (Probiotic) fluoxetine 20 mg capsule (Prozac) 20 mg PO DAILY 12/03/24 01/28/25 History magnesium 1 tablet PO DAILY 12/03/24 01/28/25 History Allergies Allergy/AdvReac Type Severity Reaction Status Date / Time haloperidol (From Haldol) AdvReac Intermediate Anxiety Verified 01/28/25 18:15 metoclopramide AdvReac Intermediate Anxiety Verified 01/28/25 18:15 prochlorperazine (From AdvReac Intermediate Anxiety Verified 01/28/25 18:15 Compazine) Vital Signs Vital Signs - 24 hr 01/28/25 07:54 01/28/25 09:53 01/28/25 12:33 Temperature 36.1 C L 36.5 C Pulse Rate 108 H 90 82 Respiratory Rate 20 18 15 Blood Pressure 116/93 H 129/100 H 147/100 H Pulse Oximetry 100 100 100 Oxygen Delivery Room Air 01/28/25 15:21 01/28/25 16:55 Temperature 36.7 C Pulse Rate 76 86 Respiratory Rate 14 17 Blood Pressure 163/105 H Pulse Oximetry 100 100 Oxygen Delivery Exam Narrative: GENERAL: Well appearing, well-nourished, non-toxic, in no acute distress. HEAD: Normocephalic, atraumatic. RESPIRATORY: Airway patent, respirations nonlabored. Clear to auscultation bilaterally, no rales, rhonchi, wheezing. CARDIOVASCULAR: Regular rate and rhythm without murmurs, rubs, or gallops. ABDOMINAL: Soft, no significant focal tenderness, nondistended. Normoactive BS. MUSCULOSKELETAL: Moves all extremities. No gross deformities. SKIN: Warm, dry, normal color. NEURO: A&O X3. Speech clear. Cranial nerves II-XII grossly intact. Steady gait. No ataxic movements. PSYCHIATRIC: Appropriate mood and affect. Normal interaction. Results Labs Labs: Short CBC 01/28/25 Range/Units 10:25 WBC 17.0 H (4.5-10.0) K/mm3 Hgb 16.8 H D (12.0-15.0) g/dL Hct 49.0 H (37.0-47.0) % Plt Count 389 H D (150-375) k/mm3 BMP 01/28/25 10:25 Sodium 136 L Potassium 2.9 L Chloride 94 L Carbon Dioxide 25 BUN 22 H Creatinine 0.73 Glucose 121 H Calcium 10.0 Cardiac Enzymes 01/28/25 Range/Units 10:25 Troponin I < 0.012 (0.000-0.034) ng/mL Liver Function 01/28/25 Range/Units 10:25 Total Bilirubin 1.0 (0.2-1.3) mg/dL AST 31 (14-36) U/L ALT 26 (6-35) U/L Alkaline Phosphatase 74 (38-126) U/L Albumin 5.8 H (3.5-5.1) g/dL Urine 01/28/25 Range/Units 11:42 Urine Color Yellow (Yellow) Urine Appearance Cloudy H (Clear) Urine pH 6.5 (5.0-9.0) Ur Specific [place] > 1.045 H (1.001-1.035) Urine Protein 2+ H (Negative) mg/dL Urine Glucose (UA) Negative (Negative) mg/dL Assessment and Plan Assessment and plan (1) Intractable nausea and vomiting: Code(s): R11.2 - Nausea with vomiting, unspecified Status: Acute Assessment and Plan: Will give IV fluids. And nausea medication. Check and maintain electrolytes. (2) Hypokalemia: Code(s): E87.6 - Hypokalemia Status: Acute Assessment and Plan: Replace and monitor closely. (3) UTI (urinary tract infection): Code(s): N39.0 - Urinary tract infection, site not specified Status: Acute Assessment and Plan: Urine culture and IV ceftriaxone. (4) Anxiety: Code(s): F41.9 - Anxiety disorder, unspecified Status: Acute Assessment and Plan: Continue home medication. 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 Plan Admit for observation. Code status full. DVT prophylaxis Lovenox.
[2025-01-28] MEDS: cefTRIAXone 1 GM in SODIUM CHLORIDE 0.9% IV 50 ML 100 ML IVPB (18:59)
[2025-01-28] MEDS: ALPRAZolam (*CRX) 0.5 MG TABLET PO (19:00)
[2025-01-28] MEDS: PROMETHAZINE HCL 25 MG/ML AMPUL 12.5 MG IV PUSH (20:23)
[2025-01-28] MEDS: POTASSIUM CHLORIDE INJ 40 MEQ in SODIUM CHLORIDE 0.9% IV 500 ML 25 MEQ IVPB (20:52)
--- NOTE | 2025-01-28 20:52 | PC.NURSE ---
patient unable to tolerate iv potassium at regular rate, reduced to 25ml hour
[2025-01-29] VITALS: PULSE 76
[2025-01-29] MEDS: SODIUM CHLORIDE 0.9% IV 1,000 ML 125 ML IV CONT (01:42)
[2025-01-29] MEDS: ALPRAZolam (*CRX) 0.5 MG TABLET PO (03:02)
--- NOTE | 2025-01-29 05:23 | PC.NURSE ---
0520 patient requesting to leave, stated she felt better and needed to wrap her kids [place] presents patient was educated on importance of staying and completing treatment. Patient verbalized understanding of risks and potential injuries or even . Patient IV and tele box removed, patient gathered her personal items and left down the elevator at 0522
--- NOTE | 2025-01-29 05:34 | PC.NURSE ---
Dr. Stewart notified of patients wish to leave AMA and acknowledged patients right to leave
[2025-01-29 05:44] LABS: Hematocrit 43.6 % (37.0-47.0); Hemoglobin 14.4 g/dL (12.0-15.0); Immature Granulocyte Percent A 0.6 % (0-0.5); Lymphocytes Absolute Auto 2.28 K/mm3 (0.9-3.2); Mean Corpuscular HGB Conc 33.0 g/dl (32-36); Mean Corpuscular Hemoglobin 30.6 pg (26-34); Mean Corpuscular Volume 92.6 fl (80-100); Nucleated Red Blood Cells Absolute Auto 0.000 K/mm3 (0.0-0.012); Nucleated Red Blood Cells Perc 0.0 % (0.0-0.2); Platelet Count Result 271 k/mm3 (150-375); Red Blood Count 4.71 M/mm3 (4.2-5.4); White Blood Count 12.7 K/mm3 (4.5-10.0)
[2025-01-29 06:02] LABS: Alanine Aminotransferase 13 U/L (6-35); Albumin Level 4.8 g/dL (3.5-5.1); Alkaline Phosphatase 64 U/L (38-126); Anion Gap 13 mmol/L (4-12); Aspartate Amino Transferase 25 U/L (14-36); Bilirubin,Total 1.0 mg/dL (0.2-1.3); Blood Urea Nitrogen 6 mg/dL (7-17); Calcium 8.7 mg/dL (8.4-10.2); Carbon Dioxide 18 mmol/L (22-30); Chloride 104 mmol/L (98-107); Estimated CRCL calculation 99 ml/min; Estimated Glomerular Filt Rate > 60; Glucose 87 mg/dL (65-110); Potassium 3.5 mmol/L (3.4-5.0); Sodium 135 mmol/L (137-145); Total Protein 7.9 g/dL (6.3-8.2)
== END 2025-01-29 05:25 | disposition left against medical advice (07) ==
LOC: ANHED 15:31 → ANH2MED 16:57
PROVIDERS: Admitting Provider Internal Medicine; Emergency Provider Physician Assistant; PCP Physician Assistant; Visit Provider Internal Medicine
DX: R11.2 Nausea with vomiting, unspecified (principal); E86.0 Dehydration; E87.6 Hypokalemia; R82.90 Unspecified abnormal findings in urine; N39.0 Urinary tract infection, site not specified; F41.9 Anxiety disorder, unspecified; F17.290 Nicotine dependence, other tobacco product, uncomplicated; F12.90 Cannabis use, unspecified, uncomplicated
CPT/HCPCS: 36415; 71046; 74177; 80053; 81001; 83690; 83735; 84484; 85025; 87086; 93005; 96365; 96366; 96367; 96375; 96376; 99285; A9270; G0378; G0379; J0696; J1200; J2060; J2405; J2550; J3480; J7030; J7040; Q9967